=== PATIENT | female | born 1965 | race Caucasian/White ===

== ENCOUNTER → 2017-08-18 11:32 | Outpatient (CLI) | payer MEDICARE, MEDICAID, SELFPAY ==
[2017-08-18 12:05] LABS: Basophils % 0.7 % (0.1-2.0); Eosinophils # 0.5 K/mm3 (0.0-0.4); Eosinophils % 7.8 % (0.1-12.0); Hematocrit 39.6 % (37.0-47.0); Lymphocytes % 30.6 K/mm3 (10-50); Mean Corpuscular HGB Conc 30.5 g/dL (31.8-35.4); Mean Corpuscular Volume 82.1 fl (81-99); Mean Platelet Volume 8.7 fl (7.4-10.4); Monocytes # 0.3 K/mm3 (0.1-1.0); Monocytes % 5.2 % (1.7-9.3); Neutrophils # 3.7 K/mm3 (1.8-7.8); Neutrophils % 55.8 % (37.0-80.0); Platelet Count 277 K/mm3 (142-424); Red Blood Count 4.82 M/mm3 (4.20-5.40); Red Cell Distribution Width 17.6 % (11.5-17.5); White Blood Count 6.6 K/mm3 (4.8-10.8)
[2017-08-18 12:53] LABS: Albumin Level 3.7 gm/dL (3.4-5.0); Anion Gap 14.3 mEq/L (5-15); Blood Urea Nitrogen 35 mg/dL (7-18); Calcium 8.9 mg/dL (8.5-10.1); Carbon Dioxide 30 mmol/L (21.0-32.0); Chloride 95 mmol/L (98-107); Creatinine,Serum 1.29 mg/dL (0.55-1.02); Estimated Glomerular Filt Rate 44 ml/min (>60); GFR (African American) 53 ML/MIN (>60); Glucose 331 mg/dL (74-106); Phosphorous 3.9 mg/dL (2.4-4.9); Potassium 4.3 mmoL/L (3.5-5.1); Sodium 135 mmol/L (136-145)
[2017-08-19 11:39] LABS: Vitamin D 25 Hydroxy 22.7 ng/mL (30.0-100.0)
== END ==
PROVIDERS: Visit Provider Internal Medicine Nephrology
DX: N18.3 Chronic kidney disease, stage 3 (moderate) (principal)
CPT/HCPCS: 36415; 80069; 82652; 85025

== ENCOUNTER → 2017-08-22 12:45 | Outpatient (POV) | payer MEDICARE, MEDICAID, SELFPAY | PROVIDERS: Visit Provider Internal Medicine Nephrology | DX: Z00.00 Encounter for general adult medical examination without abnormal findings (principal) ==

== ENCOUNTER → 2017-09-13 09:14 | Outpatient (CLI) | payer MEDICARE, MEDICAID, SELFPAY ==
--- NOTE | 2017-09-13 09:15 | XR_ITS ---
XR foot wt bearing RT 3V HISTORY: Pain and swelling ORDERING PHYSICIAN: Tabatha Calloway DPM PATIENT AGE: 51 years COMPARISON: 12/27/2016 FINDINGS: There has been prior amputation of the fourth metatarsophalangeal joint. There is diffuse vascular calcification. No acute fracture or dislocation. No lytic or blastic change. IMPRESSION: Prior to be dilatation of the fourth metatarsophalangeal joint. No change with no acute finding
== END ==
PROVIDERS: Visit Provider Podiatrist
DX: Z51.89 Encounter for other specified aftercare (principal)
CPT/HCPCS: 73630

== ENCOUNTER → 2017-10-18 10:21 | Outpatient (REF) | payer MEDICARE, MEDICAID, SELFPAY | LOC: LAB 10:21 | PROVIDERS: Visit Provider Podiatrist | DX: L97.512 Non-pressure chronic ulcer of other part of right foot with fat layer exposed (principal); E11.42 Type 2 diabetes mellitus with diabetic polyneuropathy | CPT/HCPCS: 87070; 87077; 87186; 87205 ==

== ENCOUNTER → 2017-10-31 11:39 | Outpatient (CLI) | payer MEDICARE, MEDICAID, SELFPAY ==
[2017-10-31 12:02] LABS: Basophils % 0.5 % (0.1-2.0); Eosinophils # 0.3 K/mm3 (0.0-0.4); Eosinophils % 3.2 % (0.1-12.0); Hematocrit 40.3 % (37.0-47.0); Hemoglobin 12.8 g/dL (12.2-16.2); Lymphocytes # 2.6 K/mm3 (0.7-4.5); Lymphocytes % 31.8 K/mm3 (10-50); Mean Corpuscular HGB Conc 31.7 g/dL (31.8-35.4); Mean Corpuscular Hemoglobin 26.1 pg (27.0-31.2); Mean Corpuscular Volume 82.2 fl (81-99); Mean Platelet Volume 8.3 fl (7.4-10.4); Monocytes # 0.5 K/mm3 (0.1-1.0); Monocytes % 6.2 % (1.7-9.3); Neutrophils # 4.7 K/mm3 (1.8-7.8); Neutrophils % 58.3 % (37.0-80.0); Platelet Count 345 K/mm3 (142-424); Red Cell Distribution Width 17.2 % (11.5-17.5); White Blood Count 8.1 K/mm3 (4.8-10.8)
[2017-10-31 13:19] LABS: Hemoglobin A1C 6.8 % (0.0-7.0)
[2017-10-31 13:22] LABS: Erythrocyte Sedimentation Rate 63 mm/hr (0-20)
[2017-10-31 13:36] LABS: Alanine Aminotransferase 47 U/L (12-78); Albumin/Globulin Ratio 0.9 (1.1-1.8); Alkaline Phosphatase 90 U/L (46-116); Anion Gap 12.9 mEq/L (5-15); Aspartate Amino Transferase 32 U/L (15-37); Bilirubin,Total 0.4 mg/dL (0.2-1.0); Blood Urea Nitrogen 33 mg/dL (7-18); C-Reactive Protein < 0.2 mg/L (0.0-0.9); Calcium 9.3 mg/dL (8.5-10.1); Carbon Dioxide 32 mmol/L (21.0-32.0); Chloride 96 mmol/L (98-107); Creatinine,Serum 1.29 mg/dL (0.55-1.02); Estimated Glomerular Filt Rate 44 ml/min (>60); GFR (African American) 53 ML/MIN (>60); Globulin 4.6 gm/dl (1.3-3.2); Glucose 123 mg/dL (74-106); Potassium 3.9 mmoL/L (3.5-5.1); Sodium 137 mmol/L (136-145); Total Protein,Serum 8.6 gm/dL (6.4-8.2)
== END ==
PROVIDERS: PCP Family Medicine; Visit Provider Podiatrist
DX: D64.9 Anemia, unspecified (principal); E11.9 Type 2 diabetes mellitus without complications; L97.512 Non-pressure chronic ulcer of other part of right foot with fat layer exposed
CPT/HCPCS: 36415; 80053; 83036; 85025; 85651; 86140

== ENCOUNTER 2017-11-01 10:30 | Outpatient (CLI) | payer MEDICARE, MEDICAID, SELFPAY ==
[2017-11-01] VITALS (9 sets, daily range): BP systolic 135–150; BP diastolic 69–80; PULSE 79–88; RESP 18; TEMP 36.6; O2SAT 95–97
== END 2017-11-01 16:00 | disposition home or self-care (01) ==
LOC: INF 10:44
PROVIDERS: PCP Family Medicine; Visit Provider Podiatrist
DX: L97.512 Non-pressure chronic ulcer of other part of right foot with fat layer exposed (principal); E11.9 Type 2 diabetes mellitus without complications
CPT/HCPCS: 96365; 96366; J2407

== ENCOUNTER 2017-11-09 13:30 | Outpatient (RCR) | payer MEDICARE, MEDICAID, SELFPAY ==
--- NOTE | 2017-10-24 14:00 | HMH.PTOPWND ---
Rehab Outpt Wound Evaluation Rehab OP Wound Evaluation Start: 10/24/17 13:47 Freq: Status: Active Protocol: Document 10/24/17 13:48 HUI (Rec: 10/24/17 14:00 PHOJUAN MANUEL [id number]) Electronically Signed By Livan Llamas, PT 10/24/17 13:48 Subjective/History History History Pt presents with c/o right 3rd toe wound x ~ 2-3 mos with insidious onset. Pt has extensive medical hx including prior CVA, uncontolled DM-II, prior right 4th toe removal, and prior left AKA. She had X- ray performed which was negative for osteomyelitis and wound cuilture which was positive for multiple staph infections, but negative for MRSA. She is primarily wheelchair bound and propels herself with the right foot. Wound Eval Wound Right Distal Toe - 3rd Digit Wound Type Diabetic Foot Ulcer Is This a Chronic Wound Yes Wound Length (cm) 0.8 Wound Width (cm) 1.0 Wound Bed Appearance Yellow Percentage of Slough (%) 100 Wound Margins Description Indistinct Drainage Description Serous Drainage Amount Small Wound Topical Solution/Irrigant Saline Irrigant Comment Silvasorb gel Primary Dressing Composite Comment polymem Wound Secondary Dressing Type Gauze Roll/Wrap Wound Debridement Method Sharps Forceps Wound Debridement Amount of Tissue Minimal Removed Wound Problems/Impairments Impairments Problems/Impairmments Palpation Tenderness Wound Care Needs Subjective C/O Pain Impaired Self Care/Self Management Prognosis Rehab Potential Fair Clinical Impression Consistent with Diagnosis Yes Short Term Goals Number of Weeks 4 Decreased Palpation Tenderness Yes: to min Decrease Wound Area Yes: by 50% Patient to be Ind w/ Home Wound Care/ Yes Dressing Changes Institute Director Goals Number of Weeks 8 Decreased Palpation Tenderness Yes: to none Decrease Wound Area Yes: by 100% Outpatient Therapy Plan of Care Treatment Plan May Include Ultrasound/Phonophoresis Yes Orthotics/Bracing/Splinting Yes Wound Care
== END 2017-11-09 13:31 | disposition home or self-care (01) ==
LOC: PT 13:30
PROVIDERS: PCP Family Medicine; Visit Provider Podiatrist
DX: E11.42 Type 2 diabetes mellitus with diabetic polyneuropathy (principal); L97.512 Non-pressure chronic ulcer of other part of right foot with fat layer exposed
CPT/HCPCS: 97162; 97597

== ENCOUNTER 2017-11-19 15:28 | Inpatient (IN) ==
[2017-11-19 16:14] LABS: Basophils % 0.3 % (0.1-2.0); Eosinophils # 0.4 K/mm3 (0.0-0.4); Eosinophils % 3.2 % (0.1-12.0); Hemoglobin 11.7 g/dL (12.2-16.2); Lymphocytes # 3.5 K/mm3 (0.7-4.5); Lymphocytes % 29.8 K/mm3 (10-50); Mean Corpuscular HGB Conc 30.8 g/dL (31.8-35.4); Mean Corpuscular Volume 81.3 fl (81-99); Mean Platelet Volume 8.1 fl (7.4-10.4); Monocytes # 0.7 K/mm3 (0.1-1.0); Monocytes % 5.9 % (1.7-9.3); Neutrophils # 7.2 K/mm3 (1.8-7.8); Neutrophils % 60.8 % (37.0-80.0); Platelet Count 318 K/mm3 (142-424); Red Blood Count 4.68 M/mm3 (4.20-5.40); Red Cell Distribution Width 17.6 % (11.5-17.5); White Blood Count 11.8 K/mm3 (4.8-10.8)
--- NOTE | 2017-11-19 16:14 | Emergency Department Note ---
ED Disposition Clinical Impression: Dehydration Acute renal failure Qualifiers: Acute renal failure type: unspecified Qualified Code(s): N17.9 - Acute kidney failure, unspecified Acute pancreatitis Qualifiers: Pancreatitis type: unspecified pancreatitis type Acute pancreatitis complication: unspecified Qualified Code(s): K85.90 - Acute pancreatitis without necrosis or infection, unspecified UTI (urinary tract infection) Qualifiers: Urinary tract infection type: site unspecified Hematuria presence: without hematuria Qualified Code(s): N39.0 - Urinary tract infection, site not specified Disposition: Still a Patient Condition on Discharge: Fair Referrals: Shawn Alva MD [Primary Care Provider] - - Critical Care Critical Care Time: Yes Attestation: On 11/19/17, the high probability of a clinically significant, sudden or life threatening deterioration of the following system(s) required my full and direct attention, intervention and personal management. The time I documented below is in addition to time spent performing reported procedures but includes the following listed in this critical care notation. Total Critical Care Time: 40 Vital system(s) involved:: Renal Failure My critical care processes included: Assessment & monitoring of V/S, Initial and Re-exams, Data Review/Interpretation, Coordinating Care, Medication Orders and management, Documentation Medical Decision Making - Carlo Inquiry Pt receiving controlled substance: No Vital Signs: 11/19/17 15:45 11/19/17 16:30 11/19/17 17:53 Temperature 98.1 F Temperature Source Temporal Artery Scan Pulse Rate [Right Brachial] 66 71 68 Respiratory Rate 18 16 16 Blood Pressure [Right Arm] 125/64 107/64 104/63 Blood Pressure Mean [Right Arm] 84 78 76 Blood Pressure Source [Right Arm] Automatic Cuff Automatic Cuff Automatic Cuff Blood Pressure Position [Right Arm] Sitting Sitting Supine 02 Sat by Pulse Oximetry 98 94 L 97 Oxygen Delivery Method Room Air Room Air Room Air - Lab Data Lab Results 11/19/17 15:45: Urine Color Yellow, Urine Appearance Cloudy, Urine pH 5.0, Ur Specific [place] >= 1.030, Urine Protein Trace, Urine Glucose (UA) Negative, Urine Ketones Trace, Urine Blood Negative, Urine Nitrate Negative, Urine Bilirubin Negative, Urine Urobilinogen 0.2, Ur Leukocyte Esterase 1+ A, Urine WBC 20-50, Ur Squamous Epith Cells 10-20, Urine Bacteria 4+, Hyaline Casts Occasional 11/19/17 16:05: Amylase 279 H, Lipase 5159 H 11/19/17 16:05: WBC 11.8 H, RBC 4.68, Hgb 11.7 L, Hct 38.0, MCV 81.3, MCH 25.0 L , MCHC 30.8 L, RDW 17.6 H, Plt Count 318, MPV 8.1, Neut % (Auto) 60.8, Lymph % ( Auto) 29.8, [place] % (Auto) 5.9, Eos % (Auto) 3.2, Baso % (Auto) 0.3, Neut # (Auto ) 7.2, Lymph # (Auto) 3.5, [place] # (Auto) 0.7, Eos # (Auto) 0.4, Baso # (Auto) 0.0 11/19/17 16:05: Sodium 136, Potassium 5.2 H, Chloride 96 L, Carbon Dioxide 26, Anion Gap 19.2 H, BUN 65 H, Creatinine 3.77 H, Estimated Creat Clear 22, Estimated GFR 13 L*, Est GFR ( Amer) 15 L*, Glucose 102, Calcium 9.2, Total Bilirubin 0.6, AST 25, ALT 34, Alkaline Phosphatase 79, Total Protein 8.3 H, Albumin 3.6, Globulin 4.7 H, Albumin/Globulin Ratio 0.8 L 11/19/17 16:05: Lactic Acid 4.4 H 11/19/17 16:05: Troponin I < 0.02 11/19/17 16:05: PT 28.3 H, INR 2.59 H Result diagrams: 11/19/17 16:05 11/19/17 16:05 Orders (Tests/Meds): ED MEDICATIONS Generic Name Dose Route Start Last Admin Trade Name Freq PRN Reason Stop Dose Admin Ceftriaxone Sodium 1 gm/ 50 mls @ 100 mls/hr 11/19/17 16:45 11/19/17 17:18 Sodium Chloride IV 12/03/17 16:44 100 mls/hr Q24H JOSEPH Administration Protocol ORDERS Category Date Time Status CT abdomen pelvis wo con Stat Cat Scan 11/19/17 16:00 Taken Lactic Acid Follow Up (4 hr) Stat Lab 11/19/17 16:36 Ordered Blood Culture Stat Micro 11/19/17 16:06 Received Urine Culture Stat Micro 11/19/17 15:45 Received - ECG Data Tracing #1 EKG interpreted by Trever Silva MD: Rhythm: sinus Rate: 73 [place]: normal Ectopy: none Conduction: normal ST Segment Changes: none T Wave Changes: none Q Waves: none Poor R-wave progression Baseline artifact and wander present, but I consider the EKG adequate for accurate interpretation. Computer reads acute inferior injury pattern/TN, which is incorrect no evidence of acute ischemia or injury - Physician Consults Physician Consulted: Yann Alva Time: 19:10 Comment/Response: CT results pending. Agrees to admit the patient to the hospital. We discussed the patient's clinical information, including history, exam, laboratory and radiology results and ED course. Per hospital procedure, I will write temporary bridge inpatient orders on the patient. Specific orders requested by the admitting physician: Normal saline, sliding scale insulin, clear liquids. Dr. Recinos will follow-up CT results and contact Dr. pappas if any significant abnormalities. Hold diuretics. General Adult HPI - General Chief complaint: Urogenital-Female Stated complaint: Vomiting, kidneys havent moved since 10 pm yesterd Time Seen by Provider: 11/19/17 16:14 Mode of Arrival: Wheelchair Limitations: No Limitations Description of Symptoms (Recalled from ER Triage Doc. by RN): NO URINE OUTPUT SINCE LAST NIGHT AT 2200 - History of Present Illness HPI narrative: No urine output since 10 PM last night. States she does not feel distended, feels like she does not have any urine in her bladder. Mother notes that she is on Lasix twice a day. Denies any pain. Mother also states that she has been generally weak and having some myoclonic jerks since last night. Had one episode of vomiting on the way here, but mother thinks that might of been due to carsickness. The patient lives with her mother who is the study abroad advisor and the POA. Patient has had a previous stroke and has a left hemiparesis and a left below the knee amputation. - Related Data Home Medications Medication Instructions Recorded Confirmed amiloride 5 mg tablet 5 mg PO DAILY 09/22/17 11/01/17 aspirin 25 mg-dipyridamole 200 mg 1 cap PO BID 09/22/17 11/01/17 capsule,ext.release 12 hr multiphase baclofen 10 mg tablet 10 mg PO Q8H 09/22/17 11/01/17 citalopram 10 mg tablet 10 mg PO DAILY 09/22/17 11/01/17 clopidogrel 75 mg tablet 75 mg PO DAILY 09/22/17 11/01/17 donepezil 10 mg tablet 10 mg PO QHS 09/22/17 11/01/17 glimepiride 2 mg tablet 2 mg PO QAM 09/22/17 11/01/17 linagliptin 2.5 mg-metformin 1,000 1 tab PO BID 09/22/17 11/01/17 mg tablet metolazone 5 mg tablet 5 mg PO DAILY 09/22/17 11/01/17 metoprolol tartrate 25 mg tablet 25 mg PO BID 09/22/17 11/01/17 rosuvastatin 10 mg tablet 10 mg PO DAILY 09/22/17 11/01/17 spironolactone 25 mg tablet 25 mg PO Q8H 09/22/17 11/01/17 warfarin 5 mg tablet 5 mg PO DAILY 09/22/17 11/01/17 sulfamethoxazole 800 1 tab PO BID 10/18/17 11/01/17 mg-trimethoprim 160 mg tablet Previous Rx's Medication Instructions Recorded collagenase clostridium 1 applic TOPICAL QDAY #30 g 10/18/17 histolyticum 250 unit/gram topical ointment Allergies Allergy/AdvReac Type Severity Reaction Status Date / Time azithromycin Allergy Intermediate S-DIFF. Verified 11/17/17 10:31 BREATHING daptomycin [DAPTOMYCIN] Allergy Intermediate I-RASH/ITCH Verified 11/17/17 10:31 ING levofloxacin Allergy Intermediate I-RASH Verified 11/17/17 10:31 Penicillins Allergy Intermediate I-HIVES Verified 11/17/17 10:31 [facility] History I have reviewed the patient's past medical history: Yes Medical History: Reports:: Cancer, Diabetes Mellitus Type 2, Myocardial Infarction, Transient Ischemic Attacks (TIA) Denies:: Asthma, Chronic Obstructive Pulmonary Disease (COPD) Laterality Cases: Right: Other, Bilateral: Carpal Tunnel Release, Mastectomy Other Surgeries: Yes: Cardiac Surgery, , Tubal Ligation, Other Amputation: Yes - Social History Educational Level: Completed College Smoking Status: Current every day smoker # Packs/Day (cigarettes): 0 #Yrs smoked (if former smoker): 0 Alcohol Intake: never Alcohol Intake Frequency:: other - Psychiatric History Expresses thoughts of harming self/others: None Suicide Plan Description: No Plan Family Hx:: Heart Attack, Diabetes, Cancer ROS Obtained: Yes All systems reviewed & no additional complaints - Constitutional Constitutional: Denies fever(s), Reports weakness - Respiratory Respiratory: No dyspnea - Gastrointestinal Gastrointestingal: Reports: vomiting. Denies: abdominal pain, diarrhea - Genitourinary Female Genitourinary: Reports as per HPI - Musculoskeletal Musculoskeletal: Denies back pain - Neurologic Neurologic: Denies headache(s) Physical Exam - General General appearance: alert, in no apparent distress - Head Head exam: atraumatic, normocephalic, normal inspection - Eye Eye exam: Present: normal appearance, PERRL, EOMI - ENT ENT exam: Present: normal exam, normal oropharynx, mucous membranes moist, TM's normal bilaterally, normal external ear exam - Neck Neck exam: Present: normal inspection, full ROM, trachea midline. Absent: meningismus, lymphadenopathy - Chest Chest inspection: Present: normal inspection, symmetric chest wall rise. Absent : tenderness - Respiratory Respiratory exam: Present: normal lung sounds bilaterally. Absent: respiratory distress - Cardiovascular Cardiovascular exam: Present: regular rate, normal rhythm. Absent: JVD - Abdominal Exam Abdominal exam: Present: soft, normal bowel sounds. Absent: distention, tenderness, guarding Comment: Infraumbilical ventral hernia. Nontender. - Back Exam Back exam: Present: normal inspection. Absent: tenderness - Neurological Exam Neurological exam: Present: alert, oriented X3 - Psychiatric Psychiatric exam: Present: normal affect, normal mood - Skin Skin exam: Present: warm, dry, intact, normal color - Lymphatic Lymphatic Findings: no adenopathy - Other Other exam information: Left below the knee amputation. Left upper extremity parasis with contracture.
[2017-11-19 16:15] LABS: Appearance,Urine CLOUDY (Clear); Blood, Urine Negative (Negative); Color,Urine YELLOW (Yellow); Glucose,Urine (UA) Negative (Negative); Ketones,Urine TRACE (Negative); Leukocyte Esterase,Urine 1+ (Negative); Microscopic, Urine URINE MICROSCOPIC (MICROSCOPIC); Protein,Urine TRACE (Negative); Specific Gravity, Urine >= 1.030 (1.005-1.030); Urobilinogen,Urine 0.2 EU/dl (0.2)
[2017-11-19 16:16] LABS: Bilirubin,Urine Negative (Negative)
[2017-11-19 16:23] LABS: Bacteria,Urine 4+ /lpf; WBC,Urine 20-50 #/hpf (0-3)
[2017-11-19 16:24] LABS: Hyaline Casts,Urine Occasional #/lpf (0)
[2017-11-19 16:29] LABS: Albumin Level 3.6 gm/dL (3.4-5.0); Albumin/Globulin Ratio 0.8 (1.1-1.8); Amylase 279 U/L (25-125); Anion Gap 19.2 mEq/L (5-15); Bilirubin,Total 0.6 mg/dL (0.2-1.0); Calcium 9.2 mg/dL (8.5-10.1); Globulin 4.7 gm/dl (1.3-3.2); Potassium 5.2 mmoL/L (3.5-5.1); Total Protein,Serum 8.3 gm/dL (6.4-8.2)
[2017-11-19 16:40] LABS: Lipase 5159 u/L (73-393)
[2017-11-19 16:59] LABS: INR 2.59 (0.9-1.1); Prothrombin Time 28.3 seconds (9.4-11.8)
--- NOTE | 2017-11-19 20:59 | History & Physical Report ---
*Chief complaint: Limited urine output *History of present illness: This 51-year-old white female who is chronically ill was brought to the emergency room by her family because of essentially no urine output for 2 days. She is complained of right chest and right arm pain. She has had some nausea and vomited on the way to the emergency room. She is diabetic and has had a CVA with resultant left hemiparesis. She has had a left below the knee amputation. She has chronic renal failure. She was given IV fluids in the emergency room. Regarding her lab studies most significantly was an elevated amylase at 279 and lipase at 5159. Her renal functions showed BUN of 65 and creatinine of 3.77. White blood cell count was elevated at 11,800 and the lactic acid was elevated 4.4. [facility] History Medical History: Reports:: Cancer (breast), Coronary Artery Disease, Cerebrovascular Accident, Diabetes Mellitus Type 2, Gall Bladder Disease ( Cholecystectomy), Hyperlipidemia, Hypertension, Myocardial Infarction, Peripheral Vascular Disease, Renal Disease, Renal Insufficiency, Transient Ischemic Attacks (TIA), Urinary Tract Infection Denies:: Asthma, Chronic Obstructive Pulmonary Disease (COPD), Diabetes Mellitus Type 1 Other Medical History: Reports: Chemotherapy Laterality Cases: Right: Mastectomy, Other, Bilateral: Carpal Tunnel Release Other Surgeries: Yes: Cancer Surgery, Cardiac Catheterization, Cardiac Surgery ( April 2009), Cholecystectomy, , Open Heart Surgery, Tubal Ligation, Other Amputation: Yes (Left BKA 06/23/14; 4th toe right foot 2016) - *Social History Educational Level: Attended College Smoking Status: Never smoker (Does not use alcohol) # Packs/Day (cigarettes): 0 #Yrs smoked (if former smoker): 0 Alcohol Intake: never Alcohol Intake Frequency:: other Substance Use Type: denies use Occupational Status: unemployed, disabled Household Members: family - Psychiatric History Expresses thoughts of harming self/others: None Suicide Plan Description: No Plan *Family Hx:: Cancer, Diabetes, Heart Attack, Hyperlipidemia, Hypertension Comment: 1 son was stillborn : 4 Para: 4 (1 son was stillborn) LMP comments: post menopausal Review of Systems - Constitutional Reports anorexia, Reports weakness, Denies chills, Denies fever(s) - Eyes Denies change in vision - ENT Denies difficulty swallowing, Denies nasal congestion, Denies pain with swallowing - *Cardiovascular Reports chest pain (Some recent right shoulder and right chest pain and right arm pain), Denies shortness of breath, Denies irregular heart rhythm - *Respiratory Denies chest congestion, Denies cough, Denies shortness of breath - *Gastrointestinal Reports nausea, Reports vomiting (Once), Denies abdominal pain, Denies change in bowel habits - *Genitourinary Reports difficulty urinating - *Musculoskeletal Comments: Some right arm pain. She of course has left arm paresis with contractures - *Neurologic Reports weakness, Denies abnormal speech, Denies behavioral changes, Denies seizure-like activity, Denies headache(s), Denies loss of vision - Endocrine Comments: Decrease in appetite - Hematologic/Lymphatic Reports easy bruising - Allergic/Immunologic Denies lip swelling, Denies throat swelling Meds Home Medications Medication Instructions Recorded Confirmed Type amiloride 5 mg tablet 5 mg PO DAILY 09/22/17 11/19/17 History aspirin 25 mg-dipyridamole 200 mg 1 cap PO BID 09/22/17 11/19/17 History capsule,ext.release 12 hr multiphase baclofen 10 mg tablet 10 mg PO Q8H 09/22/17 11/19/17 History citalopram 10 mg tablet 10 mg PO DAILY 09/22/17 11/19/17 History clopidogrel 75 mg tablet 75 mg PO DAILY 09/22/17 11/19/17 History donepezil 10 mg tablet 10 mg PO QHS 09/22/17 11/19/17 History glimepiride 2 mg tablet 2 mg PO QAM 09/22/17 11/19/17 History linagliptin 2.5 mg-metformin 1,000 1 tab PO BID 09/22/17 11/19/17 History mg tablet metolazone 5 mg tablet 5 mg PO DAILY 09/22/17 11/19/17 History metoprolol tartrate 25 mg tablet 25 mg PO BID 09/22/17 11/19/17 History rosuvastatin 10 mg tablet 10 mg PO DAILY 09/22/17 11/19/17 History spironolactone 25 mg tablet 25 mg PO Q8H 09/22/17 11/19/17 History warfarin 5 mg tablet 5 mg PO DAILY 09/22/17 11/19/17 History sulfamethoxazole 800 1 tab PO BID 10/18/17 11/19/17 History mg-trimethoprim 160 mg tablet Allergies Allergy/AdvReac Type Severity Reaction Status Date / Time azithromycin Allergy Intermediate S-DIFF. Verified 11/17/17 10:31 BREATHING daptomycin [DAPTOMYCIN] Allergy Intermediate I-RASH/ITCH Verified 11/17/17 10:31 ING levofloxacin Allergy Intermediate I-RASH Verified 11/17/17 10:31 Penicillins Allergy Intermediate I-HIVES Verified 11/17/17 10:31 Exam Vital signs and Labs for Last 24 Hours: Temp Pulse Resp BP Pulse Ox 98.4 F 58 L 18 115/62 93 L 11/19/17 20:00 11/19/17 20:00 11/19/17 20:00 11/19/17 20:00 11/19/17 20:00 Laboratory Results - last 24 hr 11/19/17 15:45: Urine Color Yellow, Urine Appearance Cloudy, Urine pH 5.0, Ur Specific [place] >= 1.030, Urine Protein Trace, Urine Glucose (UA) Negative, Urine Ketones Trace, Urine Blood Negative, Urine Nitrate Negative, Urine Bilirubin Negative, Urine Urobilinogen 0.2, Ur Leukocyte Esterase 1+ A, Urine WBC 20-50, Ur Squamous Epith Cells 10-20, Urine Bacteria 4+, Hyaline Casts Occasional 11/19/17 16:05: Amylase 279 H, Lipase 5159 H 11/19/17 16:05: WBC 11.8 H, RBC 4.68, Hgb 11.7 L, Hct 38.0, MCV 81.3, MCH 25.0 L , MCHC 30.8 L, RDW 17.6 H, Plt Count 318, MPV 8.1, Neut % (Auto) 60.8, Lymph % ( Auto) 29.8, [place] % (Auto) 5.9, Eos % (Auto) 3.2, Baso % (Auto) 0.3, Neut # (Auto ) 7.2, Lymph # (Auto) 3.5, [place] # (Auto) 0.7, Eos # (Auto) 0.4, Baso # (Auto) 0.0 11/19/17 16:05: Sodium 136, Potassium 5.2 H, Chloride 96 L, Carbon Dioxide 26, Anion Gap 19.2 H, BUN 65 H, Creatinine 3.77 H, Estimated Creat Clear 22, Estimated GFR 13 L*, Est GFR ( Amer) 15 L*, Glucose 102, Calcium 9.2, Total Bilirubin 0.6, AST 25, ALT 34, Alkaline Phosphatase 79, Total Protein 8.3 H, Albumin 3.6, Globulin 4.7 H, Albumin/Globulin Ratio 0.8 L 11/19/17 16:05: Lactic Acid 4.4 H 11/19/17 16:05: Troponin I < 0.02 11/19/17 16:05: PT 28.3 H, INR 2.59 H 11/19/17 20:15: Lactic Acid Fup @ 4Hr 4.2 H Laboratory Tests 11/19/17 11/19/17 11/19/17 16:05 16:05 16:05 WBC 11.8 H Hgb 11.7 L Hct 38.0 PT INR Sodium 136 Potassium 5.2 H Chloride 96 L BUN 65 H Creatinine 3.77 H Estimated GFR 13 L* Lactic Acid Lactic Acid Fup @ 4Hr Amylase 279 H Lipase 5159 H 11/19/17 11/19/17 11/19/17 16:05 16:05 20:15 WBC Hgb Hct PT 28.3 H INR 2.59 H Sodium Potassium Chloride BUN Creatinine Estimated GFR Lactic Acid 4.4 H Lactic Acid Fup @ 4Hr 4.2 H Amylase Lipase I & O for Last 24 hours: Intake & Output 11/17/17 11/18/17 11/19/17 11/20/17 11:59 11:59 11:59 11:59 Weight 169 lb 3 oz - Constitutional no acute distress - *Routine HEENT Exam Head: Present: normocephalic Eye: Present: PERRL. Absent: conjunctival icterus ENT: Present: mucous membranes moist - *Routine Neck Exam Present: supple. Absent: carotid bruit - Routine Chest/Breast/Axilla Exam Chest wall: Absent: tenderness, mass Breast: Present: right mastectomy - *Routine Respiratory Exam Present: CTA bilaterally. Absent: rales, wheezes - *Routine Cardiovascular Exam Present: RRR, murmur (Aortic murmur 2-3/6) - *Routine Abdominal Exam Present: soft, distended, hernia ([place]), surgical scars. Absent: tenderness - *Routine Rectal Exam Comments: Not done - *Routine Exam Comments: Not done - *Routine Extremities Exam Comments: There is a left BKA. She has a trace of edema on the right. She has had amputation of the fourth toe on the right. - Routine Back/Spine/Pelvis Exam Comments: She is lying in bed. - *Routine Skin Exam Present: intact - *Routine Neurological Exam Present: alert, oriented X3 H&P: Result - Labs Labs: Short CBC 11/19/17 Range/Units 16:05 WBC 11.8 H (4.8-10.8) K/mm3 Hgb 11.7 L (12.2-16.2) g/dL Hct 38.0 (37.0-47.0) % Plt Count 318 (142-424) K/mm3 BMP 11/19/17 16:05 Sodium 136 Potassium 5.2 H Chloride 96 L Carbon Dioxide 26 BUN 65 H Creatinine 3.77 H Glucose 102 Calcium 9.2 Cardiac Enzymes 11/19/17 Range/Units 16:05 Troponin I < 0.02 (0.00-0.06) ng/ml Liver Function 11/19/17 Range/Units 16:05 Total Bilirubin 0.6 (0.2-1.0) mg/dL AST 25 (15-37) U/L ALT 34 (12-78) U/L Alkaline Phosphatase 79 (46-116) U/L Albumin 3.6 (3.4-5.0) gm/dL Urine 11/19/17 Range/Units 15:45 Urine Color Yellow (Yellow) Urine Appearance Cloudy (Clear) Urine pH 5.0 (5.0-8.5) Ur Specific [place] >= 1.030 (1.005-1.030) Urine Protein Trace (Negative) Urine Glucose (UA) Negative (Negative) Assessment and Plan (1) Left spastic hemiparesis Current visit: Yes Status: Chronic Category: Medical Code(s): G81.14 - Spastic hemiplegia affecting left nondominant side (2) Hemiparesis affecting left side as late effect of cerebrovascular accident Current visit: Yes Status: Chronic Category: Medical Code(s): I69.354 - Hemiplegia and hemiparesis following cerebral infarction affecting left non- dominant side (3) correction 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 Current visit: Yes Status: Chronic Category: Medical Code(s): 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 (4) Acute pancreatitis Current visit: Yes Status: Acute Qualifiers: Pancreatitis type: unspecified pancreatitis type Acute pancreatitis complication: unspecified Qualified Code(s): K85.90 - Acute pancreatitis without necrosis or infection, unspecified Category: Medical Code(s): K85.90 - Acute pancreatitis without necrosis or infection, unspecified (5) Acute renal failure Current visit: Yes Status: Chronic Qualifiers: Acute renal failure type: unspecified Qualified Code(s): N17.9 - Acute kidney failure, unspecified Category: Medical Code(s): N17.9 - Acute kidney failure, unspecified (6) Dehydration Current visit: Yes Status: Acute Category: Medical Code(s): E86.0 - Dehydration (7) UTI (urinary tract infection) Current visit: Yes Status: Acute Qualifiers: Urinary tract infection type: site unspecified Hematuria presence: without hematuria Qualified Code(s): N39.0 - Urinary tract infection, site not specified Category: Medical Code(s): N39.0 - Urinary tract infection, site not specified (8) Diabetes mellitus Current visit: No Status: Chronic Qualifiers: Diabetes mellitus type: type 2 Diabetes mellitus intermodal dispatcher insulin use: without halfway use Diabetes mellitus complication status: with neurologic complications Diabetes mellitus complication detail: with polyneuropathy Qualified Code(s): E11.42 - Type 2 diabetes mellitus with diabetic polyneuropathy Category: Medical Code(s): E11.9 - Type 2 diabetes mellitus without complications - Assessment and plan all Dx Assessment and Plan for all problems:: See orders.
[2017-11-20 06:51] LABS: Basophils % 0.5 % (0.1-2.0); Eosinophils # 0.2 K/mm3 (0.0-0.4); Eosinophils % 3.4 % (0.1-12.0); Hematocrit 30.8 % (37.0-47.0); Lymphocytes # 2.5 K/mm3 (0.7-4.5); Mean Corpuscular HGB Conc 30.3 g/dL (31.8-35.4); Mean Corpuscular Hemoglobin 25.2 pg (27.0-31.2); Mean Platelet Volume 7.9 fl (7.4-10.4); Monocytes # 0.3 K/mm3 (0.1-1.0); Monocytes % 5.2 % (1.7-9.3); Neutrophils # 3.4 K/mm3 (1.8-7.8); Neutrophils % 51.9 % (37.0-80.0); Platelet Count 235 K/mm3 (142-424); Red Blood Count 3.71 M/mm3 (4.20-5.40); Red Cell Distribution Width 17.6 % (11.5-17.5); White Blood Count 6.5 K/mm3 (4.8-10.8)
[2017-11-20 06:52] LABS: Hemoglobin 9.4 g/dL (12.2-16.2)
[2017-11-20 07:02] LABS: Albumin Level 2.4 gm/dL (3.4-5.0); Albumin/Globulin Ratio 0.7 (1.1-1.8); Anion Gap 12.5 mEq/L (5-15); Bilirubin,Total 0.3 mg/dL (0.2-1.0); Globulin 3.4 gm/dl (1.3-3.2); Potassium 3.5 mmoL/L (3.5-5.1); Total Protein,Serum 5.8 gm/dL (6.4-8.2)
[2017-11-20 07:12] LABS: Calcium 6.9 mg/dL (8.5-10.1)
--- NOTE | 2017-11-20 09:39 | Pharmacy Consult Notes ---
[facility] Pharmacy VTE Monitoring - Patient Demographics Admission date: 11/20/17 Report Date: 11/20/17 Time: 09:38 Allergies/Adverse Reactions: Patient Allergies azithromycin Allergy (Intermediate, Verified 11/17/17 10:31) S-DIFF. 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 WARFARIN DOSE CONTINUED INPATIENT Types of VTE Prophylaxis: Pharmacological Location of Applied Device: Refused Pharmacologic Type: Warfarin - VTE Diagnosis Confirmed Comment: WARFARIN CONTINUED. INR 2.59
--- NOTE | 2017-11-20 13:09 | Progress Note ---
Internal Medicine - PN: Subj *Date: 11/20/17 *Time: 13:05 Interval history: She definitely feels better this morning. She complains of some stomach discomfort, lower abdominal area. Exam Vital signs and Labs for Last 24 Hours: Temp Pulse Resp BP Pulse Ox 98.3 F 66 20 102/54 95 11/20/17 07:19 11/20/17 07:19 11/20/17 07:19 11/20/17 07:19 11/20/17 07:19 Laboratory Results - last 24 hr 11/19/17 15:45: Urine Color Yellow, Urine Appearance Cloudy, Urine pH 5.0, Ur Specific [place] >= 1.030, Urine Protein Trace, Urine Glucose (UA) Negative, Urine Ketones Trace, Urine Blood Negative, Urine Nitrate Negative, Urine Bilirubin Negative, Urine Urobilinogen 0.2, Ur Leukocyte Esterase 1+ A, Urine WBC 20-50, Ur Squamous Epith Cells 10-20, Urine Bacteria 4+, Hyaline Casts Occasional 11/19/17 16:05: Amylase 279 H, Lipase 5159 H 11/19/17 16:05: WBC 11.8 H, RBC 4.68, Hgb 11.7 L, Hct 38.0, MCV 81.3, MCH 25.0 L , MCHC 30.8 L, RDW 17.6 H, Plt Count 318, MPV 8.1, Neut % (Auto) 60.8, Lymph % ( Auto) 29.8, [place] % (Auto) 5.9, Eos % (Auto) 3.2, Baso % (Auto) 0.3, Neut # (Auto ) 7.2, Lymph # (Auto) 3.5, [place] # (Auto) 0.7, Eos # (Auto) 0.4, Baso # (Auto) 0.0 11/19/17 16:05: Sodium 136, Potassium 5.2 H, Chloride 96 L, Carbon Dioxide 26, Anion Gap 19.2 H, BUN 65 H, Creatinine 3.77 H, Estimated Creat Clear 22, Estimated GFR 13 L*, Est GFR ( Amer) 15 L*, Glucose 102, Calcium 9.2, Total Bilirubin 0.6, AST 25, ALT 34, Alkaline Phosphatase 79, Total Protein 8.3 H, Albumin 3.6, Globulin 4.7 H, Albumin/Globulin Ratio 0.8 L 11/19/17 16:05: Lactic Acid 4.4 H 11/19/17 16:05: Troponin I < 0.02 11/19/17 16:05: PT 28.3 H, INR 2.59 H 11/19/17 20:15: Lactic Acid Fup @ 4Hr 4.2 H 11/19/17 21:52: POC Glucose 66 L 11/19/17 22:00: Lactic Acid Fup @ 2Hr 2.0 11/20/17 06:03: WBC 6.5 D, RBC 3.71 L, Hgb 9.4 L D, Hct 30.8 L, MCV 83.0, MCH 25.2 L, MCHC 30.3 L, RDW 17.6 H, Plt Count 235 D, MPV 7.9, Neut % (Auto) 51.9, Lymph % (Auto) 39.0, [place] % (Auto) 5.2, Eos % (Auto) 3.4, Baso % (Auto) 0.5, Neut # (Auto) 3.4, Lymph # (Auto) 2.5, [place] # (Auto) 0.3, Eos # (Auto) 0.2, Baso # (Auto) 0.0 11/20/17 06:03: Sodium 144, Potassium 3.5 D, Chloride 109 H, Carbon Dioxide 26 , Anion Gap 12.5, BUN 50 H, Creatinine 2.12 H D, Estimated Creat Clear 39, Estimated GFR 25 L, Est GFR ( Amer) 30 L D, Glucose 64 L D, Calcium 6.9 L D, Total Bilirubin 0.3, AST 19, ALT 26, Alkaline Phosphatase 53, Total Protein 5.8 L D, Albumin 2.4 L D, Globulin 3.4 H, Albumin/Globulin Ratio 0.7 L, Amylase 97 D, Lipase 600 H 11/20/17 06:05: POC Glucose 81 11/20/17 11:50: POC Glucose 137 H Laboratory Tests 11/19/17 11/19/17 11/19/17 16:05 16:05 16:05 WBC 11.8 H Hgb 11.7 L Sodium 136 Potassium 5.2 H BUN 65 H Creatinine 3.77 H POC Glucose ALT Alkaline Phosphatase Amylase 279 H Lipase 5159 H 11/19/17 11/20/17 11/20/17 21:52 06:03 06:03 WBC 6.5 D Hgb 9.4 L D Sodium 144 Potassium 3.5 D BUN 50 H Creatinine 2.12 H D POC Glucose 66 L ALT 26 Alkaline Phosphatase 53 Amylase 97 D Lipase 600 H 11/20/17 11/20/17 06:05 11:50 WBC Hgb Sodium Potassium BUN Creatinine POC Glucose 81 137 H ALT Alkaline Phosphatase Amylase Lipase I & O for Last 24 hours: Intake & Output 11/18/17 11/19/17 11/20/17 11/21/17 11:59 11:59 11:59 11:59 Output Total 1650 / 1650 Balance -1650 / -1650 Weight 169 lb 3 oz Microbiology Reports for the Last 24 Hours: 5 x 4.6 cm cystic lesion in the area of the ovary on the right. CT was otherwise not remarkable. - Constitutional no acute distress - *Routine HEENT Exam Head: Present: normocephalic Eye: Present: EOMI, PERRL ENT: Present: mucous membranes moist - *Routine Neck Exam Present: supple - *Routine Respiratory Exam Present: CTA bilaterally - *Routine Cardiovascular Exam Present: RRR - *Routine Abdominal Exam Present: soft, distended - *Routine Neurological Exam Present: alert, oriented X3 Assessment and Plan (1) Dehydration Current visit: Yes Status: Acute Category: Medical Code(s): E86.0 - Dehydration (2) Acute pancreatitis Current visit: Yes Status: Acute Qualifiers: Pancreatitis type: unspecified pancreatitis type Acute pancreatitis complication: unspecified Qualified Code(s): K85.90 - Acute pancreatitis without necrosis or infection, unspecified Category: Medical Code(s): K85.90 - Acute pancreatitis without necrosis or infection, unspecified (3) UTI (urinary tract infection) Current visit: Yes Status: Acute Qualifiers: Urinary tract infection type: site unspecified Hematuria presence: without hematuria Qualified Code(s): N39.0 - Urinary tract infection, site not specified Category: Medical Code(s): N39.0 - Urinary tract infection, site not specified (4) Acute renal failure Current visit: Yes Status: Chronic Qualifiers: Acute renal failure type: unspecified Qualified Code(s): N17.9 - Acute kidney failure, unspecified Category: Medical Code(s): N17.9 - Acute kidney failure, unspecified (5) Diabetes mellitus Current visit: No Status: Chronic Qualifiers: Diabetes mellitus type: type 2 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 use Diabetes mellitus complication status: with neurologic complications Diabetes mellitus complication detail: with polyneuropathy Qualified Code(s): E11.42 - Type 2 diabetes mellitus with diabetic polyneuropathy Category: Medical Code(s): E11.9 - Type 2 diabetes mellitus without complications (6) longterm 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 Current visit: Yes Status: Chronic Category: Medical Code(s): Z79.01 - rn long term care (current) use of 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 (7) Left spastic hemiparesis Current visit: Yes Status: Chronic Category: Medical Code(s): G81.14 - Spastic hemiplegia affecting left nondominant side (8) Hemiparesis affecting left side as late effect of cerebrovascular accident Current visit: Yes Status: Chronic Category: Medical Code(s): I69.354 - Hemiplegia and hemiparesis following cerebral infarction affecting left non- dominant side - Assessment and plan all Dx Assessment and Plan for all problems:: Continue present treatment. Labs ordered for the morning.
[2017-11-21 07:11] LABS: Basophils % 0.4 % (0.1-2.0); Eosinophils # 0.2 K/mm3 (0.0-0.4); Eosinophils % 2.2 % (0.1-12.0); Hematocrit 34.7 % (37.0-47.0); Hemoglobin 10.4 g/dL (12.2-16.2); Lymphocytes # 2.2 K/mm3 (0.7-4.5); Lymphocytes % 26.9 K/mm3 (10-50); Mean Corpuscular Volume 83.3 fl (81-99); Mean Platelet Volume 8.3 fl (7.4-10.4); Monocytes # 0.5 K/mm3 (0.1-1.0); Monocytes % 5.5 % (1.7-9.3); Neutrophils # 5.4 K/mm3 (1.8-7.8); Neutrophils % 64.9 % (37.0-80.0); Platelet Count 243 K/mm3 (142-424); Red Blood Count 4.16 M/mm3 (4.20-5.40); Red Cell Distribution Width 17.3 % (11.5-17.5); White Blood Count 8.3 K/mm3 (4.8-10.8)
[2017-11-21 07:13] LABS: Anion Gap 12.5 mEq/L (5-15); Potassium 3.5 mmoL/L (3.5-5.1)
--- NOTE | 2017-11-21 08:19 | Progress Note ---
<Keisha Pedersen - Last Filed: 11/21/17 08:15> Internal Medicine - PN: Subj *Date: 11/21/17 *Time: 08:15 Interval history: States she is much better today. She is hungry. She is eating her clear liquid diet without problems. She denies nausea and vomiting. Bowels have not moved. She denies chest pain and shortness of breath. She has not been out of bed. Exam Vital signs and Labs for Last 24 Hours: Temp Pulse Resp BP Pulse Ox 97.4 F L 60 20 120/55 96 11/21/17 08:06 11/21/17 08:06 11/21/17 08:06 11/21/17 08:06 11/21/17 08:06 Laboratory Results - last 24 hr 11/20/17 11:50: POC Glucose 137 H 11/20/17 16:38: POC Glucose 143 H 11/20/17 20:10: POC Glucose 132 H 11/21/17 06:12: POC Glucose 142 H 11/21/17 06:52: WBC 8.3 D, RBC 4.16 L, Hgb 10.4 L, Hct 34.7 L, MCV 83.3, MCH 25.0 L, MCHC 30.0 L, RDW 17.3, Plt Count 243, MPV 8.3, Neut % (Auto) 64.9, Lymph % (Auto) 26.9, [place] % (Auto) 5.5, Eos % (Auto) 2.2, Baso % (Auto) 0.4, Neut # (Auto) 5.4, Lymph # (Auto) 2.2, [place] # (Auto) 0.5, Eos # (Auto) 0.2, Baso # (Auto) 0.0 11/21/17 06:52: Sodium 139, Potassium 3.5, Chloride 105, Carbon Dioxide 25, Anion Gap 12.5, BUN 21 H D, Creatinine 1.20 H D, Estimated Creat Clear 69, Estimated GFR 48 L, Est GFR ( Amer) 58 L D, Glucose 151 H I & O for Last 24 hours: Intake & Output 11/18/17 11/19/17 11/20/17 11/21/17 11:59 11:59 11:59 11:59 Intake Total 480 / 480 1392 / 1392 Output Total 2550 / 2550 5350 / 5350 Balance -2070 / -2070 -3958 / -3958 Weight 169 lb 3 oz Microbiology Reports for the Last 24 Hours: Microbiology 11/19/17 15:45 Urine,Clean Catch Urine Culture - Preliminary NO GROWTH AFTER 24 HOURS Narrative: Renal function has improved. White blood cell count is normal. - Constitutional no acute distress Comments: Sitting up in the bed feeding herself breakfast. She requests food. - *Routine Respiratory Exam Present: CTA bilaterally (Anteriorly and posteriorly) - *Routine Cardiovascular Exam Present: RRR - *Routine Abdominal Exam Present: soft, normoactive bowel sounds, tenderness (Mild in epigastrium) - *Routine Extremities Exam Absent: edema - *Routine Neurological Exam Present: alert, oriented X3 Assessment and Plan (1) Dehydration Current visit: Yes Status: Acute Category: Medical Code(s): E86.0 - Dehydration (2) Acute pancreatitis Current visit: Yes Status: Acute Qualifiers: Pancreatitis type: unspecified pancreatitis type Acute pancreatitis complication: unspecified Qualified Code(s): K85.90 - Acute pancreatitis without necrosis or infection, unspecified Category: Medical Code(s): K85.90 - Acute pancreatitis without necrosis or infection, unspecified (3) UTI (urinary tract infection) Current visit: Yes Status: Acute Qualifiers: Urinary tract infection type: site unspecified Hematuria presence: without hematuria Qualified Code(s): N39.0 - Urinary tract infection, site not specified Category: Medical Code(s): N39.0 - Urinary tract infection, site not specified (4) Acute renal failure Current visit: Yes Status: Chronic Qualifiers: Acute renal failure type: unspecified Qualified Code(s): N17.9 - Acute kidney failure, unspecified Category: Medical Code(s): N17.9 - Acute kidney failure, unspecified (5) Diabetes mellitus Current visit: No Status: Chronic Qualifiers: Diabetes mellitus type: type 2 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 Diabetes mellitus complication status: with neurologic complications Diabetes mellitus complication detail: with polyneuropathy Qualified Code(s): E11.42 - Type 2 diabetes mellitus with diabetic polyneuropathy Category: Medical Code(s): E11.9 - Type 2 diabetes mellitus without complications (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 Current visit: Yes Status: Chronic Category: Medical Code(s): 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 We will advance diet to full liquids. Will remove Gottlieb catheter. Out of bed with assistance. <Shawn Alva - Last Filed: 11/21/17 08:46> Internal Medicine - PN: Subj *Date: 11/21/17 *Time: 08:46 Exam Vital signs and Labs for Last 24 Hours: Temp Pulse Resp BP Pulse Ox 97.4 F L 60 20 120/55 96 11/21/17 08:06 11/21/17 08:06 11/21/17 08:06 11/21/17 08:06 11/21/17 08:06 Laboratory Results - last 24 hr 11/20/17 11:50: POC Glucose 137 H 11/20/17 16:38: POC Glucose 143 H 11/20/17 20:10: POC Glucose 132 H 11/21/17 06:12: POC Glucose 142 H 11/21/17 06:52: WBC 8.3 D, RBC 4.16 L, Hgb 10.4 L, Hct 34.7 L, MCV 83.3, MCH 25.0 L, MCHC 30.0 L, RDW 17.3, Plt Count 243, MPV 8.3, Neut % (Auto) 64.9, Lymph % (Auto) 26.9, [place] % (Auto) 5.5, Eos % (Auto) 2.2, Baso % (Auto) 0.4, Neut # (Auto) 5.4, Lymph # (Auto) 2.2, [place] # (Auto) 0.5, Eos # (Auto) 0.2, Baso # (Auto) 0.0 11/21/17 06:52: Sodium 139, Potassium 3.5, Chloride 105, Carbon Dioxide 25, Anion Gap 12.5, BUN 21 H D, Creatinine 1.20 H D, Estimated Creat Clear 69, Estimated GFR 48 L, Est GFR ( Amer) 58 L D, Glucose 151 H I & O for Last 24 hours: Intake & Output 11/18/17 11/19/17 11/20/17 11/21/17 11:59 11:59 11:59 11:59 Intake Total 480 / 480 1392 / 1392 Output Total 2550 / 2550 5350 / 5350 Balance -2070 / -2070 -3958 / -3958 Weight 169 lb 3 oz Microbiology Reports for the Last 24 Hours: Microbiology 11/19/17 15:45 Urine,Clean Catch Urine Culture - Preliminary NO GROWTH AFTER 24 HOURS Assessment and Plan (1) Dehydration Current visit: Yes Status: Acute Category: Medical Code(s): E86.0 - Dehydration (2) Acute pancreatitis Current visit: Yes Status: Acute Qualifiers: Pancreatitis type: unspecified pancreatitis type Acute pancreatitis complication: unspecified Qualified Code(s): K85.90 - Acute pancreatitis without necrosis or infection, unspecified Category: Medical Code(s): K85.90 - Acute pancreatitis without necrosis or infection, unspecified (3) UTI (urinary tract infection) Current visit: Yes Status: Acute Qualifiers: Urinary tract infection type: site unspecified Hematuria presence: without hematuria Qualified Code(s): N39.0 - Urinary tract infection, site not specified Category: Medical Code(s): N39.0 - Urinary tract infection, site not specified (4) Acute renal failure Current visit: Yes Status: Chronic Qualifiers: Acute renal failure type: unspecified Qualified Code(s): N17.9 - Acute kidney failure, unspecified Category: Medical Code(s): N17.9 - Acute kidney failure, unspecified (5) Diabetes mellitus Current visit: No Status: Chronic Qualifiers: Diabetes mellitus type: type 2 Diabetes mellitus [facility] insulin use: without [facility] use Diabetes mellitus complication status: with neurologic complications Diabetes mellitus complication detail: with polyneuropathy Qualified Code(s): E11.42 - Type 2 diabetes mellitus with diabetic polyneuropathy Category: Medical Code(s): E11.9 - Type 2 diabetes mellitus without complications (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 Current visit: Yes Status: Chronic Category: Medical Code(s): 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
--- NOTE | 2017-11-22 07:48 | Progress Note ---
Subjective Date: 11/22/17 Time: 07:40 Principal diagnosis: Right 3rd toe DM Ulcer Interval history: Ms. Nieto is a 51-year-old diabetic female who is well known to me. She was admitted for acute pancreatitis and lack of urine output 2 days. Patient is resting comfortably in bed eating. She states that she is hungry and has an appetite and she denies nausea and vomiting. She denies pain to the right lower extremity. [place] in the last few days but other than that she has been bedbound and has not put the foot down on the ground. PN: Obj Ex Vital signs: Temp Pulse Resp BP Pulse Ox 98.2 F 54 L 18 126/61 96 11/22/17 03:51 11/22/17 03:51 11/22/17 03:51 11/22/17 03:51 11/22/17 03:51 Narrative: Resting comfortably in bed. Denies N/V, F/C, SOB/CP - Constitutional no acute distress - Routine HEENT Exam Head: Present: normocephalic - Routine Respiratory Exam Absent: respiratory distress - Routine Cardiovascular Exam Absent: JVD - Routine Extremities Exam Present: extremity cold to touch, amputation (left BKA). Absent: pulses intact (Diminished to RLE), normal capillary refill (delayed) - Detailed Lower Extremity Exam Foot/Toes: Right erythema (R 3rd toe), Right swelling (R 3rd toe), Right wound ( R distal tip 3rd toe) Comments: L BKA. Weakly palpable pedal pulses noted right foot. No pedal hair growth and RLE cold. Right 4th digit amputated previously with no open wound noted to amp site. There is thickening of the skin here. There is no interdigital maceration. No drainage noted to the tip of right 3rd toe with compression. Periwound callus noted to distal tip of right 3rd toes. Wound on tip of toe granular and fibrotic. Localized edema and erythema noted to digit, much improved. No ascending cellulitis noted past PIPJ. No calf or thigh pain, right. No plantar wounds or gangrene noted. 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 Current Visit: Yes (7) Left spastic hemiparesis Status: Chronic Current Visit: Yes (8) Hemiparesis affecting left side as late effect of cerebrovascular accident Status: Chronic Current Visit: Yes (9) 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 Status: Acute Assessment and plan: 11/21/17: CONOR R 1.66, TBI 0.28, Toe pressure 28 mmHg Diminished pulses, normal to diminished waveforms Elevated right CONOR of 1.7 indicates calcification, vessel hardening Low TBI indicates vessel disease Prior left-sided amputation I discussed the results of the vascular study with the patient. I explained with the hardening of the vessels and the noncompressibility at the level of the calf combined with the decreased TBI there is low healing potential. 1. Dressing applied: Santyl dry sterile dressing 2. Wound care instructions given: change dressing daily as previously directed 3. WB in post op shoe with DME assistance; discussed how pushing the wheelchair along with the right foot is causing the pressure wound. Recommend that she stops using her right foot to move the wheelchair 4. Call the office immediately if pain increases or signs of infection worsen 5. I do not recommend surgery, due to the lack of healing potential 6. Continue local wound care and off load wound 7. Follow up out pt as previously scheduled Current Visit: Yes
--- NOTE | 2017-11-22 08:29 | Progress Note ---
<Keisha Pedersen - Last Filed: 11/22/17 08:35> Internal Medicine - PN: Subj *Date: 11/22/17 *Time: 08:35 Interval history: Dr. Doll note appreciated. Patient states that she slept well. She loves her food. She denies shortness of breath and chest pain. She has had no further nausea or vomiting. Bowels have not moved. She is passing flatus. She was out of bed to the shower yesterday without difficulty. She would like to go home today. Exam Vital signs and Labs for Last 24 Hours: Temp Pulse Resp BP Pulse Ox 97.7 F 55 L 16 97/51 96 11/22/17 08:00 11/22/17 08:00 11/22/17 08:00 11/22/17 08:00 11/22/17 08:00 Laboratory Results - last 24 hr 11/21/17 11:44: POC Glucose 270 H 11/21/17 16:53: POC Glucose 213 H 11/21/17 20:48: POC Glucose 204 H 11/22/17 06:09: POC Glucose 179 H I & O for Last 24 hours: Intake & Output 11/19/17 11/20/17 11/21/17 11/22/17 11:59 11:59 11:59 11:59 Intake Total 480 / 480 2932 / 2932 1673 / 1673 Output Total 2550 / 2550 6150 / 6150 800 / 800 Balance -2070 / -2070 -3218 / -3218 873 / 873 Weight 169 lb 3 oz 169 lb 2.994 oz Microbiology Reports for the Last 24 Hours: Microbiology 11/19/17 16:06 Blood Blood Culture - Preliminary NO GROWTH AFTER 48 HOURS 11/19/17 16:06 Blood Blood Culture - Preliminary NO GROWTH AFTER 48 HOURS 11/19/17 15:45 Urine,Clean Catch Urine Culture - Final NO GROWTH AFTER 48 HOURS - Constitutional no acute distress Comments: Sitting up in the bed eating her breakfast - *Routine Respiratory Exam Present: CTA bilaterally - *Routine Cardiovascular Exam Present: RRR - *Routine Abdominal Exam Present: soft, normoactive bowel sounds. Absent: tenderness - *Routine Extremities Exam Absent: edema Comments: Dressing removed from right foot. Toe with 1/2 cm dried wound; no erythema. - *Routine Neurological Exam Present: alert, oriented X3 Assessment and Plan (1) Dehydration Current visit: Yes Status: Acute Category: Medical Code(s): E86.0 - Dehydration (2) Acute pancreatitis Current visit: Yes Status: Acute Qualifiers: Pancreatitis type: unspecified pancreatitis type Acute pancreatitis complication: unspecified Qualified Code(s): K85.90 - Acute pancreatitis without necrosis or infection, unspecified Category: Medical Code(s): K85.90 - Acute pancreatitis without necrosis or infection, unspecified (3) UTI (urinary tract infection) Current visit: Yes Status: Acute Qualifiers: Urinary tract infection type: site unspecified Hematuria presence: without hematuria Qualified Code(s): N39.0 - Urinary tract infection, site not specified Category: Medical Code(s): N39.0 - Urinary tract infection, site not specified (4) Acute renal failure Current visit: Yes Status: Chronic Qualifiers: Acute renal failure type: unspecified Qualified Code(s): N17.9 - Acute kidney failure, unspecified Category: Medical Code(s): N17.9 - Acute kidney failure, unspecified (5) Diabetes mellitus Current visit: No Status: Chronic Qualifiers: Diabetes mellitus type: type 2 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 use Diabetes mellitus complication status: with neurologic complications Diabetes mellitus complication detail: with polyneuropathy Qualified Code(s): E11.42 - Type 2 diabetes mellitus with diabetic polyneuropathy Category: Medical Code(s): E11.9 - Type 2 diabetes mellitus without complications (6) care home 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 Current visit: Yes Status: Chronic Category: Medical Code(s): 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 (7) Left spastic hemiparesis Current visit: Yes Status: Chronic Category: Medical Code(s): G81.14 - Spastic hemiplegia affecting left nondominant side (8) Hemiparesis affecting left side as late effect of cerebrovascular accident Current visit: Yes Status: Chronic Category: Medical Code(s): I69.354 - Hemiplegia and hemiparesis following cerebral infarction affecting left non- dominant side (9) 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 Current visit: Yes Status: Acute Category: Medical Code(s): E08.621 - Diabetes mellitus due to underlying condition with foot ulcer; L97.519 - Non- pressure chronic ulcer of other part of right foot with unspecified severity - Assessment and plan all Dx Assessment and Plan for all problems:: We will discharge home today. <Lawrence Alvaian - Last Filed: 11/22/17 08:58> Internal Medicine - PN: Kacie *Date: 11/22/17 *Time: 08:56 Exam Vital signs and Labs for Last 24 Hours: Temp Pulse Resp BP Pulse Ox 97.7 F 55 L 16 97/51 96 11/22/17 08:00 11/22/17 08:00 11/22/17 08:00 11/22/17 08:00 11/22/17 08:00 Laboratory Results - last 24 hr 11/21/17 11:44: POC Glucose 270 H 11/21/17 16:53: POC Glucose 213 H 11/21/17 20:48: POC Glucose 204 H 11/22/17 06:09: POC Glucose 179 H I & O for Last 24 hours: Intake & Output 11/19/17 11/20/17 11/21/17 11/22/17 11:59 11:59 11:59 11:59 Intake Total 480 / 480 2932 / 2932 1673 / 1673 Output Total 2550 / 2550 6150 / 6150 800 / 800 Balance -2070 / -2070 -3218 / -3218 873 / 873 Weight 169 lb 3 oz 169 lb 2.994 oz Microbiology Reports for the Last 24 Hours: Microbiology 11/19/17 16:06 Blood Blood Culture - Preliminary 11/19/17 16:06 Blood Blood Culture - Preliminary NO GROWTH AFTER 48 HOURS 11/19/17 15:45 Urine,Clean Catch Urine Culture - Final NO GROWTH AFTER 48 HOURS Assessment and Plan (1) Dehydration Current visit: Yes Status: Acute Category: Medical Code(s): E86.0 - Dehydration (2) Acute pancreatitis Current visit: Yes Status: Acute Qualifiers: Pancreatitis type: unspecified pancreatitis type Acute pancreatitis complication: unspecified Qualified Code(s): K85.90 - Acute pancreatitis without necrosis or infection, unspecified Category: Medical Code(s): K85.90 - Acute pancreatitis without necrosis or infection, unspecified (3) UTI (urinary tract infection) Current visit: Yes Status: Acute Qualifiers: Urinary tract infection type: site unspecified Hematuria presence: without hematuria Qualified Code(s): N39.0 - Urinary tract infection, site not specified Category: Medical Code(s): N39.0 - Urinary tract infection, site not specified (4) Acute renal failure Current visit: Yes Status: Chronic Qualifiers: Acute renal failure type: unspecified Qualified Code(s): N17.9 - Acute kidney failure, unspecified Category: Medical Code(s): N17.9 - Acute kidney failure, unspecified (5) Diabetes mellitus Current visit: No Status: Chronic Qualifiers: Diabetes mellitus type: type 2 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: without electronics engineering technician use Diabetes mellitus complication status: with neurologic complications Diabetes mellitus complication detail: with polyneuropathy Qualified Code(s): E11.42 - Type 2 diabetes mellitus with diabetic polyneuropathy Category: Medical Code(s): E11.9 - Type 2 diabetes mellitus without complications (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 Current visit: Yes Status: Chronic Category: Medical Code(s): Z79.01 - care home (current) use of 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 (7) Left spastic hemiparesis Current visit: Yes Status: Chronic Category: Medical Code(s): G81.14 - Spastic hemiplegia affecting left nondominant side (8) Hemiparesis affecting left side as late effect of cerebrovascular accident Current visit: Yes Status: Chronic Category: Medical Code(s): I69.354 - Hemiplegia and hemiparesis following cerebral infarction affecting left non- dominant side (9) 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 Current visit: Yes Status: Acute Category: Medical Code(s): E08.621 - Diabetes mellitus due to underlying condition with foot ulcer; L97.519 - Non- pressure chronic ulcer of other part of right foot with unspecified severity - Assessment and plan all Dx Assessment and Plan for all problems:: Saw patient agree with above note. Prelim blood culture report discussed with lab personnel, likely due to skin contaminate. Plan discharge today on oral antibiotic. Follow up in office next week.
[2017-11-22 15:32] VITALS: BP 118/57
--- NOTE | 2017-11-23 08:10 | Discharge Summary ---
General - General Admission date:: 11/19/17 Discharge date: 11/22/17 HPI HPI: This 51-year-old white female who is chronically ill was brought to the emergency room by her family because of essentially no urine output for 2 days. She has complained of right chest and right arm pain. She has had some nausea and vomited on the way to the emergency room. She is diabetic and has had a CVA with resultant left hemiparesis. She has had a left below the knee amputation. She has chronic renal failure. She was given IV fluids in the emergency room. Regarding her lab studies most significantly was an elevated amylase at 279 and lipase at 5159. Her renal functions showed BUN of 65 and creatinine of 3.77. White blood cell count was elevated at 11,800 and the lactic acid was elevated 4.4. Hospital Course Hospital Course: The patient was initially kept NPO and then started on clear liquids. Her nausea and vomiting improved as did her abdominal pain. She was continued on IV fluids. She began urinating. Her renal function improved and her white blood cell count normalized. Her lipase improved as well. Patient did have a diabetic ulcer of the right foot. She was seen in consultation by Dr. Sigala. She had an CONOR of 1.7 on the right indicating calcification. Dr. Calloway applied a dressing and gave her wound care instructions. She did not recommend surgery due to lack of healing potential. She began eating well and passing flatus. She was able to get up and have a shower. She was stable to be discharged home on oral antibiotics. Objective Vital signs: Temp Pulse Resp BP Pulse Ox 98.2 F 56 L 18 118/57 95 11/22/17 15:31 11/22/17 15:31 11/22/17 15:31 11/22/17 15:31 11/22/17 15:31 Narrative: - Constitutional no acute distress - *Routine HEENT Exam Head: Present: normocephalic Eye: Present: PERRL. Absent: conjunctival icterus ENT: Present: mucous membranes moist - *Routine Neck Exam Present: supple. Absent: carotid bruit - Routine Chest/Breast/Axilla Exam Chest wall: Absent: tenderness, mass Breast: Present: right mastectomy - *Routine Respiratory Exam Present: CTA bilaterally. Absent: rales, wheezes - *Routine Cardiovascular Exam Present: RRR, murmur (Aortic murmur 2-3/6) - *Routine Abdominal Exam Present: soft, distended, hernia (Ventral), surgical scars. Absent: tenderness - *Routine Rectal Exam Comments: Not done - *Routine Exam Comments: Not done - *Routine Extremities Exam Comments: There is a left BKA. She has a trace of edema on the right. She has had amputation of the fourth toe on the right. - Routine Back/Spine/Pelvis Exam Comments: She is lying in bed. - *Routine Skin Exam Present: intact - *Routine Neurological Exam Present: alert, oriented X3 Results Labs on day of discharge: Labs from last 24 hours 11/22/17 11/22/17 17:14 12:03 POC Glucose 360 H* 303 H* Preliminary micro results at discharge 11/19/17 16:06 Blood Culture - Preliminary Blood 11/19/17 16:06 Blood Culture - Preliminary Blood NO GROWTH AFTER 48 HOURS DS: Diagnosis - Discharge Diagnosis (1) Dehydration Status: Acute (2) Acute pancreatitis Status: Acute (3) UTI (urinary tract infection) Status: Acute (4) Acute renal failure Status: Chronic (5) Diabetes mellitus Status: Chronic (6) FPC 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 Status: Chronic (7) Left spastic hemiparesis Status: Chronic (8) Hemiparesis affecting left side as late effect of cerebrovascular accident Status: Chronic (9) 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 Status: Acute Discharge Plan - Patient Discharge Instructions ACTIVITY: Continue current activity DIET: continue same diet Patient Instructions: Acute Pancreatitis - Follow up Plan Follow up with: Shawn Alva MD [Primary Care Provider] - 1 week Disposition: Home, Self-Halfway Medications: Home Medications Medication Instructions Recorded Confirmed Type amiloride 5 mg tablet 10 mg PO DAILY 09/22/17 11/20/17 History aspirin 25 mg-dipyridamole 200 mg 1 cap PO BID 09/22/17 11/19/17 History capsule,ext.release 12 hr multiphase baclofen 10 mg tablet 10 mg PO DAILY 09/22/17 11/20/17 History clopidogrel 75 mg tablet 75 mg PO DAILY 09/22/17 11/19/17 History glimepiride 2 mg tablet 2 mg PO QAM 09/22/17 11/19/17 History linagliptin 2.5 mg-metformin 1,000 1 tab PO BID 09/22/17 11/19/17 History mg tablet metolazone 5 mg tablet 5 mg PO DAILY 09/22/17 11/19/17 History metoprolol tartrate 25 mg tablet 25 mg PO BID 09/22/17 11/19/17 History rosuvastatin 10 mg tablet 10 mg PO DAILY 09/22/17 11/19/17 History spironolactone 25 mg tablet 25 mg PO DAILY 09/22/17 11/20/17 History warfarin 5 mg tablet 5 mg PO SUTUWETHFRSA 09/22/17 11/20/17 History Loratadine [Allergy] 10 mg PO DAILY 11/19/17 11/19/17 History Potassium Chloride [Pot Chlor 20 40 meq PO TID 11/19/17 11/20/17 History mEq Tab] Baclofen [Lioresal 10mg tablet] 20 mg PO HS 11/20/17 11/20/17 History Citalopram Hydrobromide [Celexa 20 mg PO DAILY 11/20/17 11/20/17 History 20mg Tablet] Donepezil HCl [Aricept] 5 mg PO HS 11/20/17 11/20/17 History Insulin Glargine,Hum.rec.anlog 60 units SQ HS 11/20/17 11/20/17 History [Lantus Insulin 100units/mL 10mL vial] Insulin Lispro [Humalog Kwikpen 0 unit SQ AC 11/20/17 11/20/17 History U-100] Warfarin Sodium 7.5 mg PO MO 11/20/17 11/20/17 History Prescriptions/Medication Reconciliation: New cefUROXime axetil [Ceftin 250mg Tablet] 500 mg PO BID #20 tab Continue baclofen 10 mg tablet 10 mg PO DAILY amiloride 5 mg tablet 10 mg PO DAILY spironolactone 25 mg tablet 25 mg PO DAILY aspirin 25 mg-dipyridamole 200 mg capsule,ext.release 12 hr multiphase 1 cap PO BID linagliptin 2.5 mg-metformin 1,000 mg tablet 1 tab PO BID clopidogrel 75 mg tablet 75 mg PO DAILY rosuvastatin 10 mg tablet 10 mg PO DAILY warfarin 5 mg tablet 5 mg PO SUTUWETHFRSA metolazone 5 mg tablet 5 mg PO DAILY glimepiride 2 mg tablet 2 mg PO QAM metoprolol tartrate 25 mg tablet 25 mg PO BID collagenase clostridium histolyticum 250 unit/gram topical ointment 1 applic TOPICAL QDAY #30 g Loratadine [Allergy] 10 mg PO DAILY Citalopram Hydrobromide [Celexa 20mg Tablet] 20 mg PO DAILY Warfarin Sodium 7.5 mg PO MO Insulin Lispro [Humalog Kwikpen U-100] 0 unit SQ AC Donepezil HCl [Aricept] 5 mg PO HS Potassium Chloride [Pot Chlor 20 mEq Tab] 40 meq PO TID Baclofen [Lioresal 10mg tablet] 20 mg PO HS Insulin Glargine,Hum.rec.anlog [Lantus Insulin 100units/mL 10mL vial] 60 units SQ HS
== END 2017-11-22 18:38 | disposition home or self-care (01) ==
LOC: ER 15:28 → 2ND 15:28 → OBSVTOIN 19:55 → 2ND 19:56
PROVIDERS: ADMIT Family Medicine; ATTEND Family Medicine

== ENCOUNTER 2017-12-07 12:50 | Outpatient (CLI) | payer MEDICARE, MEDICAID, SELFPAY ==
[2017-12-07 14:17] VITALS: BMI 31.8
--- NOTE | 2017-12-07 14:32 | XR_ITS ---
XR chest portable PICC plac HISTORY: ITS.REASON: PICC line placement ORDERING PHYSICIAN: Tabatha Calloway DPM PATIENT AGE: 51 years COMPARISON: 11/06/2016 FINDINGS: Right upper extremity PICC line has been inserted. The tip is in region of the superior vena cava in good position. There has been a prior CABG and there are surgical clips in the right axilla. The lungs are clear. IMPRESSION: Good placement of the right upper extremity PICC line
[2017-12-07 14:35] VITALS: BMI 31.8
[2017-12-07 14:55] VITALS: BP 114/76; PULSE 75; RESP 18; TEMP 36.6; O2SAT 93
[2017-12-07 15:25] VITALS: BP 104/79; PULSE 75; O2SAT 94
== END 2017-12-07 15:40 | disposition home or self-care (01) ==
LOC: INF 14:30
PROVIDERS: PCP Family Medicine; Visit Provider Podiatrist
DX: L97.519 Non-pressure chronic ulcer of other part of right foot with unspecified severity (principal)
CPT/HCPCS: 36569; 71045; 96365; C1751

== ENCOUNTER 2017-12-08 16:15 | Outpatient (CLI) | payer MEDICARE, MEDICAID, SELFPAY ==
[2017-12-08 16:37] VITALS: BP 134/65; PULSE 74; RESP 18; TEMP 36.6; O2SAT 99
[2017-12-08 17:07] VITALS: BP 131/61; PULSE 78; RESP 18; O2SAT 97
[2017-12-08 17:20] VITALS: BP 134/64; PULSE 79; RESP 18; O2SAT 97
== END 2017-12-08 17:25 | disposition home or self-care (01) ==
LOC: INF 16:36
PROVIDERS: PCP Family Medicine; Visit Provider Podiatrist
DX: L97.512 Non-pressure chronic ulcer of other part of right foot with fat layer exposed (principal); E11.42 Type 2 diabetes mellitus with diabetic polyneuropathy
CPT/HCPCS: 96365

== ENCOUNTER 2017-12-09 15:45 | Outpatient (CLI) | payer MEDICARE, MEDICAID, SELFPAY ==
[2017-12-09 16:00] VITALS: BP 100/55; PULSE 81; RESP 18; TEMP 36.8; O2SAT 98
[2017-12-09 16:30] VITALS: BP 97/59; PULSE 81; RESP 18
[2017-12-09 16:45] VITALS: BP 102/56; PULSE 89; RESP 18
== END 2017-12-09 16:45 | disposition home or self-care (01) ==
LOC: INF 16:19
PROVIDERS: PCP Family Medicine; Visit Provider Podiatrist
DX: L97.512 Non-pressure chronic ulcer of other part of right foot with fat layer exposed (principal); E11.42 Type 2 diabetes mellitus with diabetic polyneuropathy
CPT/HCPCS: 96365

== ENCOUNTER 2017-12-10 15:31 | Outpatient (CLI) | payer MEDICARE, MEDICAID, SELFPAY ==
[2017-12-10 15:48] VITALS: BP 110/61; PULSE 78; RESP 18; TEMP 36.6; O2SAT 98
--- NOTE | 2017-12-10 15:53 | PC.NURSE ---
PATIENT PROVIDED WITH A CH[employer] SANDWICH AND DIET DR. JONES.
== END 2017-12-10 17:00 | disposition home or self-care (01) ==
PROVIDERS: PCP Family Medicine; Visit Provider Podiatrist
DX: L97.512 Non-pressure chronic ulcer of other part of right foot with fat layer exposed (principal); E11.42 Type 2 diabetes mellitus with diabetic polyneuropathy
CPT/HCPCS: 96365

== ENCOUNTER 2017-12-11 13:25 | Outpatient (CLI) | payer MEDICARE, MEDICAID, SELFPAY ==
[2017-12-11 13:39] VITALS: BP 99/59; PULSE 84; RESP 18; O2SAT 100
== END 2017-12-11 14:00 | disposition home or self-care (01) ==
LOC: INF 13:25
PROVIDERS: PCP Family Medicine; Visit Provider Podiatrist
DX: L97.512 Non-pressure chronic ulcer of other part of right foot with fat layer exposed (principal); E11.42 Type 2 diabetes mellitus with diabetic polyneuropathy
CPT/HCPCS: 96365

== ENCOUNTER 2017-12-12 14:10 | Outpatient (CLI) | payer MEDICARE, MEDICAID, SELFPAY ==
[2017-12-12 14:35] VITALS: BP 94/54; PULSE 72; RESP 18; O2SAT 94
[2017-12-12 15:10] VITALS: BP 81/42; PULSE 85; RESP 18
== END 2017-12-12 15:35 | disposition home or self-care (01) ==
LOC: INF 14:23
PROVIDERS: PCP Family Medicine; Visit Provider Podiatrist
DX: L97.512 Non-pressure chronic ulcer of other part of right foot with fat layer exposed (principal); E11.42 Type 2 diabetes mellitus with diabetic polyneuropathy
CPT/HCPCS: 96365

== ENCOUNTER 2017-12-13 13:26 | Outpatient (CLI) | payer MEDICARE, MEDICAID, SELFPAY ==
[2017-12-13 13:52] VITALS: BP 103/68; PULSE 70; RESP 18; TEMP 36.5; O2SAT 98
[2017-12-13 14:22] VITALS: BP 109/64; PULSE 72; RESP 18; O2SAT 97
[2017-12-13 14:45] VITALS: BP 105/61; PULSE 74; RESP 18; O2SAT 98
== END 2017-12-13 14:45 | disposition home or self-care (01) ==
LOC: INF 13:26
PROVIDERS: PCP Family Medicine; Visit Provider Podiatrist
DX: L97.512 Non-pressure chronic ulcer of other part of right foot with fat layer exposed (principal); E11.42 Type 2 diabetes mellitus with diabetic polyneuropathy
CPT/HCPCS: 96365

== ENCOUNTER 2017-12-14 13:52 | Outpatient (CLI) | payer MEDICARE, MEDICAID, SELFPAY ==
[2017-12-14 14:22] VITALS: BP 132/50; PULSE 78; RESP 18; TEMP 36.3; O2SAT 97
[2017-12-14 14:45] VITALS: BP 128/74; PULSE 74; RESP 18
[2017-12-14 15:15] VITALS: BP 127/58; PULSE 78; RESP 18; TEMP 36.6; O2SAT 97
== END 2017-12-14 15:15 | disposition home or self-care (01) ==
LOC: INF 13:52
PROVIDERS: PCP Family Medicine; Visit Provider Podiatrist
DX: L97.512 Non-pressure chronic ulcer of other part of right foot with fat layer exposed (principal); E11.42 Type 2 diabetes mellitus with diabetic polyneuropathy; I73.9 Peripheral vascular disease, unspecified
CPT/HCPCS: 96365

== ENCOUNTER 2017-12-15 11:36 | Outpatient (CLI) | payer MEDICARE, MEDICAID, SELFPAY ==
[2017-12-15 11:55] VITALS: BP 107/49; PULSE 80; RESP 18; TEMP 36.8
[2017-12-15 12:25] VITALS: BP 119/47; PULSE 79; RESP 18
== END 2017-12-15 13:05 | disposition home or self-care (01) ==
LOC: INF 11:36
PROVIDERS: PCP Family Medicine; Visit Provider Podiatrist
DX: L97.512 Non-pressure chronic ulcer of other part of right foot with fat layer exposed (principal); E11.42 Type 2 diabetes mellitus with diabetic polyneuropathy; I73.9 Peripheral vascular disease, unspecified
CPT/HCPCS: 96365

== ENCOUNTER 2017-12-16 13:21 | Outpatient (CLI) | payer MEDICARE, MEDICAID, SELFPAY ==
[2017-12-16 14:05] VITALS: BP 107/66; PULSE 80; RESP 18; TEMP 36.6; O2SAT 97
[2017-12-16 14:35] VITALS: BP 110/69; PULSE 79; RESP 18; O2SAT 97
[2017-12-16 14:50] VITALS: BP 105/67; PULSE 81; RESP 18; O2SAT 96
== END 2017-12-16 15:00 | disposition home or self-care (01) ==
LOC: INF 13:21
PROVIDERS: PCP Family Medicine; Visit Provider Podiatrist
DX: L97.512 Non-pressure chronic ulcer of other part of right foot with fat layer exposed (principal); E11.42 Type 2 diabetes mellitus with diabetic polyneuropathy; I73.9 Peripheral vascular disease, unspecified
CPT/HCPCS: 96365

== ENCOUNTER 2017-12-17 12:08 | Outpatient (CLI) | payer MEDICARE, MEDICAID, SELFPAY ==
[2017-12-17 12:30] VITALS: BP 131/67; PULSE 81; RESP 18; TEMP 36.6; O2SAT 97
[2017-12-17 12:46] VITALS: BMI 31.9
[2017-12-17 13:25] VITALS: BP 148/66; PULSE 84; RESP 18; TEMP 36.4; O2SAT 96
== END 2017-12-17 13:25 | disposition home or self-care (01) ==
LOC: INF 12:09
PROVIDERS: PCP Family Medicine; Visit Provider Podiatrist
DX: L97.512 Non-pressure chronic ulcer of other part of right foot with fat layer exposed (principal); E11.42 Type 2 diabetes mellitus with diabetic polyneuropathy; I73.9 Peripheral vascular disease, unspecified
CPT/HCPCS: 96365

== ENCOUNTER 2017-12-18 11:59 | Outpatient (CLI) | payer MEDICARE, MEDICAID, SELFPAY ==
[2017-12-18 11:59] VITALS: BP 115/69; PULSE 82; RESP 18; O2SAT 96
[2017-12-18 12:00] VITALS: BP 125/68; PULSE 79; RESP 18; O2SAT 98
== END 2017-12-18 12:50 | disposition home or self-care (01) ==
LOC: INF 11:59
PROVIDERS: PCP Family Medicine; Visit Provider Podiatrist
DX: L97.512 Non-pressure chronic ulcer of other part of right foot with fat layer exposed (principal); E11.42 Type 2 diabetes mellitus with diabetic polyneuropathy; I73.9 Peripheral vascular disease, unspecified
CPT/HCPCS: 96365

== ENCOUNTER 2017-12-19 13:25 | Outpatient (CLI) | payer MEDICARE, MEDICAID, SELFPAY ==
[2017-12-19 13:28] VITALS: BP 125/64; PULSE 78; RESP 18; TEMP 36.4; O2SAT 96
[2017-12-19 14:05] VITALS: BP 121/62; PULSE 82; RESP 18; TEMP 36.6; O2SAT 97
== END 2017-12-19 14:15 | disposition home or self-care (01) ==
LOC: INF 13:25
PROVIDERS: PCP Family Medicine; Visit Provider Podiatrist
DX: L97.512 Non-pressure chronic ulcer of other part of right foot with fat layer exposed (principal); E11.42 Type 2 diabetes mellitus with diabetic polyneuropathy; I73.9 Peripheral vascular disease, unspecified
CPT/HCPCS: 96365

== ENCOUNTER 2017-12-20 13:40 | Outpatient (CLI) | payer MEDICARE, MEDICAID, SELFPAY ==
[2017-12-20 13:50] VITALS: BP 125/70; PULSE 68; RESP 20; TEMP 36.9; O2SAT 96
[2017-12-20 14:25] VITALS: BP 128/70; PULSE 68; RESP 20; TEMP 36.9; O2SAT 96
== END 2017-12-20 14:30 | disposition home or self-care (01) ==
LOC: INF 13:52
PROVIDERS: PCP Family Medicine; Visit Provider Podiatrist
DX: L97.512 Non-pressure chronic ulcer of other part of right foot with fat layer exposed (principal); E11.42 Type 2 diabetes mellitus with diabetic polyneuropathy; I73.9 Peripheral vascular disease, unspecified
CPT/HCPCS: 96365

== ENCOUNTER → 2017-12-21 15:17 | Outpatient (CLI) | payer MEDICARE, MEDICAID, SELFPAY ==
[2017-12-21 15:31] VITALS: BP 94/56; PULSE 80; RESP 18; TEMP 36.8; O2SAT 98; BMI 31.8
[2017-12-21 16:15] VITALS: BP 94/56; PULSE 80; RESP 18; TEMP 36.8; O2SAT 98
== END ==
PROVIDERS: PCP Family Medicine; Visit Provider Podiatrist
DX: L97.512 Non-pressure chronic ulcer of other part of right foot with fat layer exposed (principal); E11.42 Type 2 diabetes mellitus with diabetic polyneuropathy; I73.9 Peripheral vascular disease, unspecified
CPT/HCPCS: 96365; 96366

== ENCOUNTER 2017-12-22 12:00 | Outpatient (CLI) | payer MEDICARE, MEDICAID, SELFPAY ==
[2017-12-22 12:30] VITALS: BP 118/59; PULSE 76; RESP 18; TEMP 36.6
[2017-12-22 13:00] VITALS: BP 90/49; PULSE 77; RESP 18
[2017-12-22 13:35] VITALS: BP 90/49; PULSE 77; RESP 18
--- NOTE | 2017-12-22 14:49 | PC.NURSE ---
1335: Called and spoke with Marlyn in ED. Gave a quick report on patient. Sent patient for further evaluation. Mother concerned about patient jerking and making noises she normally does not make. Patient awake, and drinking soft drink at this time. Patient is in wheelchair. Sonia Vaughn RN transporting patient to ER at this time.
== END 2017-12-22 13:35 | disposition still patient (30) ==
LOC: INF 12:21
PROVIDERS: PCP Family Medicine; Visit Provider Podiatrist
DX: L97.512 Non-pressure chronic ulcer of other part of right foot with fat layer exposed (principal); E11.42 Type 2 diabetes mellitus with diabetic polyneuropathy; I73.9 Peripheral vascular disease, unspecified
CPT/HCPCS: 96365

== ENCOUNTER 2017-12-23 13:20 | Outpatient (CLI) | payer MEDICARE, MEDICAID, SELFPAY ==
[2017-12-23 14:10] VITALS: BP 132/81; PULSE 84; RESP 18
[2017-12-23 14:40] VITALS: BP 127/79; PULSE 91; RESP 18
== END 2017-12-23 15:05 | disposition home or self-care (01) ==
LOC: INF 14:21
PROVIDERS: PCP Family Medicine; Visit Provider Podiatrist
DX: L97.512 Non-pressure chronic ulcer of other part of right foot with fat layer exposed (principal); E11.42 Type 2 diabetes mellitus with diabetic polyneuropathy; I73.9 Peripheral vascular disease, unspecified
CPT/HCPCS: 96365

== ENCOUNTER → 2017-12-24 11:50 | Outpatient (CLI) | payer MEDICARE, MEDICAID, SELFPAY ==
[2017-12-24 12:03] VITALS: BP 98/58; PULSE 72; RESP 20; TEMP 36.6; O2SAT 98; BMI 31.8
[2017-12-24 14:31] VITALS: BP 116/67; PULSE 78; RESP 18; TEMP 36.7; O2SAT 97
== END ==
PROVIDERS: PCP Family Medicine; Visit Provider Podiatrist
DX: L97.512 Non-pressure chronic ulcer of other part of right foot with fat layer exposed (principal); E11.42 Type 2 diabetes mellitus with diabetic polyneuropathy; I73.9 Peripheral vascular disease, unspecified
CPT/HCPCS: 96365

== ENCOUNTER → 2017-12-25 12:19 | Outpatient (CLI) | payer MEDICARE, MEDICAID, SELFPAY ==
[2017-12-25 12:42] VITALS: BMI 31.8
[2017-12-25 12:43] VITALS: BP 108/72; PULSE 88; RESP 20; TEMP 37; O2SAT 97
[2017-12-25 13:15] VITALS: BP 105/70; PULSE 81; RESP 20; TEMP 36.8; O2SAT 96
== END ==
PROVIDERS: PCP Family Medicine; Visit Provider Podiatrist
DX: L97.512 Non-pressure chronic ulcer of other part of right foot with fat layer exposed (principal); E11.42 Type 2 diabetes mellitus with diabetic polyneuropathy; I73.9 Peripheral vascular disease, unspecified
CPT/HCPCS: 96365

== ENCOUNTER 2017-12-26 12:50 | Outpatient (CLI) | payer MEDICARE, MEDICAID, SELFPAY ==
[2017-12-26 13:30] VITALS: BP 126/76; PULSE 93; RESP 18; TEMP 36.1
[2017-12-26 14:00] VITALS: BP 113/67; PULSE 90; RESP 18
== END 2017-12-26 14:30 | disposition home or self-care (01) ==
LOC: INF 13:09
PROVIDERS: PCP Family Medicine; Visit Provider Podiatrist
DX: L97.512 Non-pressure chronic ulcer of other part of right foot with fat layer exposed (principal); E11.42 Type 2 diabetes mellitus with diabetic polyneuropathy; I73.9 Peripheral vascular disease, unspecified
CPT/HCPCS: 96365

== ENCOUNTER 2017-12-27 12:40 | Outpatient (CLI) | payer MEDICARE, MEDICAID, SELFPAY ==
[2017-12-27 12:40] VITALS: BP 97/55; PULSE 82; RESP 18; TEMP 36.6; O2SAT 96
[2017-12-27 13:10] VITALS: BP 101/59; PULSE 84; RESP 18; O2SAT 97
[2017-12-27 13:25] VITALS: BP 99/56; PULSE 81; RESP 18; O2SAT 96
== END 2017-12-27 13:30 | disposition home or self-care (01) ==
LOC: INF 12:40
PROVIDERS: PCP Family Medicine; Visit Provider Podiatrist
DX: L97.512 Non-pressure chronic ulcer of other part of right foot with fat layer exposed (principal); E11.42 Type 2 diabetes mellitus with diabetic polyneuropathy; I73.9 Peripheral vascular disease, unspecified
CPT/HCPCS: 96365

== ENCOUNTER 2017-12-28 12:55 | Outpatient (CLI) | payer MEDICARE, MEDICAID, SELFPAY ==
[2017-12-28 13:04] VITALS: BMI 31.8
[2017-12-28 13:30] VITALS: BP 113/48; PULSE 81; RESP 18; TEMP 36.8
[2017-12-28 13:40] LABS: Basophils % 0.5 % (0.1-2.0); Eosinophils # 0.3 K/mm3 (0.0-0.4); Eosinophils % 3.8 % (0.1-12.0); Hematocrit 37.1 % (37.0-47.0); Hemoglobin 11.4 g/dL (12.2-16.2); Lymphocytes # 2.2 K/mm3 (0.7-4.5); Lymphocytes % 32.1 K/mm3 (10-50); Mean Corpuscular HGB Conc 30.7 g/dL (31.8-35.4); Mean Corpuscular Hemoglobin 25.7 pg (27.0-31.2); Mean Corpuscular Volume 83.7 fl (81-99); Mean Platelet Volume 8.2 fl (7.4-10.4); Monocytes # 0.3 K/mm3 (0.1-1.0); Monocytes % 4.5 % (1.7-9.3); Platelet Count 254 K/mm3 (142-424); Red Blood Count 4.44 M/mm3 (4.20-5.40); Red Cell Distribution Width 18.3 % (11.5-17.5); White Blood Count 6.7 K/mm3 (4.8-10.8)
[2017-12-28 13:46] LABS: Anion Gap 14.4 mEq/L (5-15); Blood Urea Nitrogen 22 mg/dL (7-18); Calcium 9.2 mg/dL (8.5-10.1); Carbon Dioxide 26 mmol/L (21.0-32.0); Chloride 103 mmol/L (98-107); Creatinine Clearance Estimated 68 mL/min (0-300); Creatinine,Serum 1.15 mg/dL (0.55-1.02); Estimated Glomerular Filt Rate 50 ml/min (>60); GFR (African American) 60 ML/MIN (>60); Glucose 86 mg/dL (74-106); Potassium 3.4 mmoL/L (3.5-5.1); Sodium 140 mmol/L (136-145)
[2017-12-28 13:49] LABS: INR 2.11 (0.9-1.1); Prothrombin Time 21.3 seconds (9.4-11.8)
[2017-12-28 14:00] VITALS: BP 120/69; PULSE 91; RESP 18
== END 2017-12-28 14:30 | disposition home or self-care (01) ==
LOC: INF 13:13
PROVIDERS: PCP Family Medicine; Visit Provider Podiatrist
DX: Z79.01 Long term (current) use of 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 (principal); Z51.81 Encounter for therapeutic drug level monitoring; E86.0 Dehydration; Z86.718 Personal history of other venous thrombosis and embolism
CPT/HCPCS: 80048; 85025; 85610; 96365

== ENCOUNTER 2017-12-29 12:45 | Outpatient (CLI) | payer MEDICARE, MEDICAID, SELFPAY ==
[2017-12-29 13:25] VITALS: BP 92/42; PULSE 79; RESP 20; TEMP 36.5; O2SAT 99
[2017-12-29 13:55] VITALS: BP 95/49; PULSE 76; RESP 20; O2SAT 98
[2017-12-29 14:10] VITALS: BP 97/46; PULSE 74; RESP 20; O2SAT 98
== END 2017-12-29 14:30 | disposition home or self-care (01) ==
LOC: INF 13:36
PROVIDERS: PCP Family Medicine; Visit Provider Podiatrist
DX: L97.512 Non-pressure chronic ulcer of other part of right foot with fat layer exposed (principal); E11.42 Type 2 diabetes mellitus with diabetic polyneuropathy; I73.9 Peripheral vascular disease, unspecified
CPT/HCPCS: 96365

== ENCOUNTER 2017-12-30 11:00 | Outpatient (CLI) | payer MEDICARE, MEDICAID, SELFPAY ==
[2017-12-30 11:29] VITALS: BP 116/54; PULSE 85; RESP 18; TEMP 36.5; O2SAT 98
[2017-12-30 11:59] VITALS: BP 112/57; PULSE 87; RESP 18; O2SAT 97
[2017-12-30 12:25] VITALS: BP 111/52; PULSE 88; RESP 18; O2SAT 97
== END 2017-12-30 12:30 | disposition home or self-care (01) ==
LOC: INF 11:47
PROVIDERS: PCP Family Medicine; Visit Provider Podiatrist
DX: L97.512 Non-pressure chronic ulcer of other part of right foot with fat layer exposed (principal); E11.42 Type 2 diabetes mellitus with diabetic polyneuropathy; I73.9 Peripheral vascular disease, unspecified
CPT/HCPCS: 96365

== ENCOUNTER → 2017-12-31 12:07 | Outpatient (CLI) | payer MEDICARE, MEDICAID, SELFPAY ==
[2017-12-31 12:43] VITALS: BP 122/70; PULSE 78; RESP 16; TEMP 36.8; O2SAT 95; BMI 31.2
[2017-12-31 13:35] VITALS: BP 99/48; PULSE 85; RESP 18; TEMP 37; O2SAT 95
== END ==
PROVIDERS: PCP Family Medicine; Visit Provider Podiatrist
DX: L97.512 Non-pressure chronic ulcer of other part of right foot with fat layer exposed (principal); E11.42 Type 2 diabetes mellitus with diabetic polyneuropathy; I73.9 Peripheral vascular disease, unspecified
CPT/HCPCS: 96365

== ENCOUNTER → 2018-01-01 12:08 | Outpatient (CLI) | payer MEDICARE, MEDICAID, SELFPAY ==
[2018-01-01 12:18] VITALS: BMI 31.2
[2018-01-01 12:20] VITALS: BP 104/69; PULSE 72; RESP 18; TEMP 36.2; O2SAT 100
[2018-01-01 13:00] VITALS: BP 101/51; PULSE 76; RESP 16; TEMP 36.7; O2SAT 100
== END ==
PROVIDERS: PCP Family Medicine; Visit Provider Podiatrist
DX: L97.512 Non-pressure chronic ulcer of other part of right foot with fat layer exposed (principal); E11.42 Type 2 diabetes mellitus with diabetic polyneuropathy; I73.9 Peripheral vascular disease, unspecified
CPT/HCPCS: 96365

== ENCOUNTER 2018-01-02 13:15 | Outpatient (CLI) | payer MEDICARE, MEDICAID, SELFPAY ==
[2018-01-02 13:25] VITALS: BP 110/57; PULSE 75; RESP 20; TEMP 36.7; O2SAT 96
[2018-01-02 13:55] VITALS: BP 109/51; PULSE 79; RESP 20; O2SAT 97
== END 2018-01-02 14:30 | disposition home or self-care (01) ==
LOC: INF 13:15
PROVIDERS: PCP Family Medicine; Visit Provider Podiatrist
DX: L97.512 Non-pressure chronic ulcer of other part of right foot with fat layer exposed (principal); E11.42 Type 2 diabetes mellitus with diabetic polyneuropathy; I73.9 Peripheral vascular disease, unspecified
CPT/HCPCS: 96365

== ENCOUNTER 2018-01-03 13:07 | Outpatient (CLI) | payer MEDICARE, MEDICAID, SELFPAY ==
[2018-01-03 13:32] VITALS: BP 116/51; PULSE 78; RESP 18; TEMP 36.8; O2SAT 96; BMI 33.0
[2018-01-03 14:25] VITALS: BP 118/60; PULSE 75; RESP 18; O2SAT 97
== END 2018-01-03 14:25 | disposition home or self-care (01) ==
LOC: INF 13:08
PROVIDERS: PCP Family Medicine; Visit Provider Podiatrist
DX: L97.512 Non-pressure chronic ulcer of other part of right foot with fat layer exposed (principal); E11.42 Type 2 diabetes mellitus with diabetic polyneuropathy; I73.9 Peripheral vascular disease, unspecified
CPT/HCPCS: 96365

== ENCOUNTER 2018-01-04 13:20 | Outpatient (CLI) | payer MEDICARE, MEDICAID, SELFPAY ==
[2018-01-04 13:36] VITALS: BP 109/46; PULSE 59; RESP 20; TEMP 36.8; O2SAT 99
[2018-01-04 14:06] VITALS: BP 110/51; PULSE 57; RESP 20; O2SAT 99
[2018-01-04 14:35] VITALS: BP 105/46; PULSE 55; RESP 20; O2SAT 98
== END 2018-01-04 14:40 | disposition home or self-care (01) ==
LOC: INF 13:20
PROVIDERS: PCP Family Medicine; Visit Provider Podiatrist
DX: L97.512 Non-pressure chronic ulcer of other part of right foot with fat layer exposed (principal); E11.42 Type 2 diabetes mellitus with diabetic polyneuropathy; I73.9 Peripheral vascular disease, unspecified
CPT/HCPCS: 96365

== ENCOUNTER 2018-01-05 12:30 | Outpatient (CLI) | payer MEDICARE, MEDICAID, SELFPAY ==
[2018-01-05 13:05] VITALS: BP 94/66; PULSE 70; RESP 18; O2SAT 100
[2018-01-05 13:35] VITALS: BP 138/66; PULSE 79; RESP 18
== END 2018-01-05 14:00 | disposition home or self-care (01) ==
LOC: INF 12:50
PROVIDERS: PCP Family Medicine; Visit Provider Podiatrist
DX: L97.512 Non-pressure chronic ulcer of other part of right foot with fat layer exposed (principal); E11.42 Type 2 diabetes mellitus with diabetic polyneuropathy; I73.9 Peripheral vascular disease, unspecified
CPT/HCPCS: 96365

== ENCOUNTER 2018-01-06 12:45 | Outpatient (CLI) | payer MEDICARE, MEDICAID, SELFPAY ==
[2018-01-06 13:10] VITALS: BP 122/70; PULSE 68; RESP 20; TEMP 36.9; O2SAT 96
[2018-01-06 13:45] VITALS: BP 116/70; PULSE 72; RESP 16; TEMP 36.3; O2SAT 96
== END 2018-01-06 13:45 | disposition home or self-care (01) ==
LOC: INF 12:48
PROVIDERS: PCP Family Medicine; Visit Provider Podiatrist
DX: L97.512 Non-pressure chronic ulcer of other part of right foot with fat layer exposed (principal); E11.42 Type 2 diabetes mellitus with diabetic polyneuropathy; I73.9 Peripheral vascular disease, unspecified
CPT/HCPCS: 96365

== ENCOUNTER 2018-01-07 13:28 | Outpatient (CLI) | payer MEDICARE, MEDICAID, SELFPAY ==
[2018-01-07 14:35] VITALS: BP 94/58; PULSE 76; RESP 18; TEMP 36.9; O2SAT 97
[2018-01-07 15:09] VITALS: BP 115/74; PULSE 77; RESP 18; TEMP 36.7; O2SAT 99
== END 2018-01-07 14:35 | disposition home or self-care (01) ==
LOC: INF 13:29
PROVIDERS: PCP Family Medicine; Visit Provider Podiatrist
DX: L97.512 Non-pressure chronic ulcer of other part of right foot with fat layer exposed (principal); E11.42 Type 2 diabetes mellitus with diabetic polyneuropathy; I73.9 Peripheral vascular disease, unspecified
CPT/HCPCS: 96365

== ENCOUNTER 2018-01-08 11:47 | Outpatient (CLI) | payer MEDICARE, MEDICAID, SELFPAY ==
[2018-01-08 12:00] VITALS: BP 120/65; PULSE 73; RESP 18; TEMP 36.5; O2SAT 98
== END 2018-01-08 12:45 | disposition home or self-care (01) ==
LOC: INF 11:48
PROVIDERS: PCP Family Medicine; Visit Provider Podiatrist
DX: L97.512 Non-pressure chronic ulcer of other part of right foot with fat layer exposed (principal); E11.42 Type 2 diabetes mellitus with diabetic polyneuropathy; I73.9 Peripheral vascular disease, unspecified
CPT/HCPCS: 96365

== ENCOUNTER 2018-01-09 13:00 | Outpatient (CLI) | payer MEDICARE, MEDICAID, SELFPAY ==
[2018-01-09 13:15] VITALS: BP 126/69; PULSE 68; RESP 20; TEMP 37.1; O2SAT 96
[2018-01-09 13:45] VITALS: BP 128/69; PULSE 68; RESP 20; TEMP 37.2; O2SAT 96
== END 2018-01-09 13:45 | disposition home or self-care (01) ==
LOC: INF 13:11
PROVIDERS: PCP Family Medicine; Visit Provider Podiatrist
DX: L97.512 Non-pressure chronic ulcer of other part of right foot with fat layer exposed (principal); E11.42 Type 2 diabetes mellitus with diabetic polyneuropathy; I73.9 Peripheral vascular disease, unspecified
CPT/HCPCS: 96365

== ENCOUNTER 2018-01-10 14:10 | Outpatient (CLI) | payer MEDICARE, MEDICAID, SELFPAY ==
[2018-01-10 13:09] VITALS: BP 99/56; PULSE 62; RESP 18; TEMP 36.4; O2SAT 97
[2018-01-10 13:39] VITALS: BP 101/55; PULSE 67; RESP 18; O2SAT 96
[2018-01-10 14:15] VITALS: BP 98/52; PULSE 61; RESP 18; O2SAT 96
== END 2018-01-10 14:20 | disposition home or self-care (01) ==
LOC: INF 14:10
PROVIDERS: PCP Family Medicine; Visit Provider Podiatrist
DX: L97.512 Non-pressure chronic ulcer of other part of right foot with fat layer exposed (principal); E11.42 Type 2 diabetes mellitus with diabetic polyneuropathy; I73.9 Peripheral vascular disease, unspecified
CPT/HCPCS: 96365

== ENCOUNTER 2018-01-11 13:35 | Outpatient (CLI) | payer MEDICARE, MEDICAID, SELFPAY ==
[2018-01-11 13:45] VITALS: BP 117/73; PULSE 86; RESP 20; TEMP 36.5; O2SAT 97
[2018-01-11 14:15] VITALS: BP 112/69; PULSE 87; RESP 20; O2SAT 96
[2018-01-11 14:40] VITALS: BP 116/71; PULSE 75; RESP 20; O2SAT 97
== END 2018-01-11 14:40 | disposition home or self-care (01) ==
LOC: INF 14:30
PROVIDERS: PCP Family Medicine; Visit Provider Podiatrist
DX: L97.512 Non-pressure chronic ulcer of other part of right foot with fat layer exposed (principal); E11.42 Type 2 diabetes mellitus with diabetic polyneuropathy; I73.9 Peripheral vascular disease, unspecified
CPT/HCPCS: 96365

== ENCOUNTER 2018-01-12 13:30 | Outpatient (CLI) | payer MEDICARE, MEDICAID, SELFPAY ==
[2018-01-12 13:45] VITALS: BP 111/60; PULSE 75; RESP 18; O2SAT 96
[2018-01-12 14:20] VITALS: BP 107/82; PULSE 80; RESP 18
== END 2018-01-12 14:55 | disposition home or self-care (01) ==
LOC: INF 13:30
PROVIDERS: PCP Family Medicine; Visit Provider Podiatrist
DX: L97.512 Non-pressure chronic ulcer of other part of right foot with fat layer exposed (principal); E11.42 Type 2 diabetes mellitus with diabetic polyneuropathy; I73.9 Peripheral vascular disease, unspecified
CPT/HCPCS: 96365

== ENCOUNTER 2018-01-13 09:45 | Outpatient (CLI) | payer MEDICARE, MEDICAID, SELFPAY ==
[2018-01-13 10:05] VITALS: BP 133/84; PULSE 70; RESP 18; O2SAT 100
[2018-01-13 10:40] VITALS: BP 117/60; PULSE 78; RESP 16
== END 2018-01-13 11:05 | disposition home or self-care (01) ==
LOC: INF 09:56
PROVIDERS: PCP Family Medicine; Visit Provider Podiatrist
DX: L97.512 Non-pressure chronic ulcer of other part of right foot with fat layer exposed (principal); E11.42 Type 2 diabetes mellitus with diabetic polyneuropathy; I73.9 Peripheral vascular disease, unspecified
CPT/HCPCS: 96365

== ENCOUNTER → 2018-01-14 14:03 | Outpatient (CLI) | payer MEDICARE, MEDICAID, SELFPAY ==
[2018-01-14 14:03] VITALS: BP 106/48; PULSE 76; RESP 18; TEMP 36.8; O2SAT 100
[2018-01-14 14:21] VITALS: BP 163/59; PULSE 77; RESP 18; TEMP 36.8; O2SAT 100; BMI 33.2
== END ==
PROVIDERS: PCP Family Medicine; Visit Provider Podiatrist
DX: L97.512 Non-pressure chronic ulcer of other part of right foot with fat layer exposed (principal); E11.42 Type 2 diabetes mellitus with diabetic polyneuropathy; I73.9 Peripheral vascular disease, unspecified
CPT/HCPCS: 96365; G0463

== ENCOUNTER → 2018-01-15 11:56 | Outpatient (CLI) | payer MEDICARE, MEDICAID, SELFPAY ==
[2018-01-15 12:40] VITALS: BP 115/46; PULSE 56; RESP 18; TEMP 36.6; O2SAT 98
[2018-01-15 12:57] VITALS: BP 126/63; PULSE 63; RESP 18; TEMP 36.9; O2SAT 98; BMI 31.2
== END ==
PROVIDERS: PCP Family Medicine; Visit Provider Podiatrist
DX: L97.512 Non-pressure chronic ulcer of other part of right foot with fat layer exposed (principal); E11.42 Type 2 diabetes mellitus with diabetic polyneuropathy; I73.9 Peripheral vascular disease, unspecified
CPT/HCPCS: 96365; G0463

== ENCOUNTER 2018-01-16 12:13 | Outpatient (CLI) | payer MEDICARE, MEDICAID, SELFPAY ==
[2018-01-16 12:30] VITALS: BP 107/60; PULSE 78; RESP 18; TEMP 36.6; O2SAT 98
[2018-01-16 13:00] VITALS: BP 108/69; PULSE 87; RESP 18
[2018-01-16 13:30] VITALS: BP 127/70; PULSE 70; RESP 18
== END 2018-01-16 13:30 | disposition home or self-care (01) ==
LOC: INF 12:13
PROVIDERS: PCP Family Medicine; Visit Provider Podiatrist
DX: L97.512 Non-pressure chronic ulcer of other part of right foot with fat layer exposed (principal); E11.42 Type 2 diabetes mellitus with diabetic polyneuropathy; I73.9 Peripheral vascular disease, unspecified
CPT/HCPCS: 96365

== ENCOUNTER 2018-01-17 11:36 | Outpatient (CLI) | payer MEDICARE, MEDICAID, SELFPAY ==
[2018-01-17 11:25] VITALS: BP 115/77; PULSE 74; RESP 18; TEMP 36.6; O2SAT 97
[2018-01-17 11:55] VITALS: BP 112/76; PULSE 71; RESP 18; O2SAT 96
[2018-01-17 12:20] VITALS: BP 114/72; PULSE 75; RESP 18; O2SAT 96
== END 2018-01-17 12:30 | disposition home or self-care (01) ==
LOC: INF 11:36
PROVIDERS: PCP Family Medicine; Visit Provider Podiatrist
DX: L97.512 Non-pressure chronic ulcer of other part of right foot with fat layer exposed (principal); E11.42 Type 2 diabetes mellitus with diabetic polyneuropathy; I73.9 Peripheral vascular disease, unspecified
CPT/HCPCS: 96365

== ENCOUNTER 2018-01-18 12:46 | Outpatient (CLI) | payer MEDICARE, MEDICAID, SELFPAY ==
[2018-01-18 13:04] VITALS: BMI 31.8
[2018-01-18 13:36] LABS: Anion Gap 9.8 mEq/L (5-15); Blood Urea Nitrogen 19 mg/dL (7-18); Calcium 9.1 mg/dL (8.5-10.1); Carbon Dioxide 28 mmol/L (21.0-32.0); Chloride 102 mmol/L (98-107); Creatinine Clearance Estimated 78 mL/min (0-300); Creatinine,Serum 1.01 mg/dL (0.55-1.02); Estimated Glomerular Filt Rate 58 ml/min (>60); GFR (African American) 70 ML/MIN (>60); Glucose 126 mg/dL (74-106); Potassium 3.8 mmoL/L (3.5-5.1); Sodium 136 mmol/L (136-145)
[2018-01-18 13:45] VITALS: BP 111/59; PULSE 67; RESP 18; TEMP 36.7; O2SAT 98
[2018-01-18 14:15] VITALS: BP 111/73; PULSE 74; RESP 18; O2SAT 97
[2018-01-18 14:25] VITALS: BP 109/69; PULSE 72; RESP 18; O2SAT 97
== END 2018-01-18 14:30 | disposition home or self-care (01) ==
LOC: INF 12:47
PROVIDERS: PCP Family Medicine; Visit Provider Podiatrist
DX: L97.512 Non-pressure chronic ulcer of other part of right foot with fat layer exposed (principal); E11.42 Type 2 diabetes mellitus with diabetic polyneuropathy; I73.9 Peripheral vascular disease, unspecified
CPT/HCPCS: 80048; 96365

== ENCOUNTER → 2018-03-30 12:26 | Outpatient (CLI) | payer MEDICARE, MEDICAID, SELFPAY ==
--- NOTE | 2018-03-30 12:49 | XR_ITS ---
XR foot wt bearing RT 3V Ordering Physician: Tabatha Calloway DPM Patient Age: 52 years: Female HISTORY: ITS.REASON: toe pain TECHNIQUE: 3 views right foot weightbearing COMPARISON :December 2016 right foot and September 13, 2017 right foot FINDINGS There is been old amputation of the fourth toe at the metatarsophalangeal joint. This area appears stable Flexion deformity left Third Toe noted with what appears to be soft tissue ulcer at tip & diffuse soft tissue swelling third toe.. On the lateral view there is irregular calcification inferior to its tip distal phalanx. Although the frontal projections provided Limited visualization of the distal phalanx, on the oblique and the lateral view There appears to be destructive changes at the tip of distal phalanx. Destructive osseous changes involve distal tuft and tip of the distal phalanx third toe with estimated irregular calcifications inferior to it on the lateral view. Findings support osteomyelitis distal phalanx third toe. If desire more optimal visualization at the tip of distal phalanx, oblique lateral coned-down views may be of benefit There is some mild soft tissue swelling throughout the remainder forefoot and in addition to the third toe. Otherwise metatarsals appear stable and intact. Tarsals unremarkable. .. . Again the stable accessory ossicles medial to the navicular & distal talus appears similar to the August study.. Plantar calcaneal spur with Mild bony proliferation at the plantar calcaneal spur region which is been present at least since December 2016 IMPRESSION: ... . Probable soft tissue ulcer tip of third toe. With Diffuse swelling/cellulitis third toe Destructive changes at the tip of the distal phalanx third toe compatible with osteomyelitis involving the tuft/distal phalanx third toe right foot Clinical Correlation required to fully confirm (Lateral coned-down oblique views could further visualize the tip the third toe if desired greater detail)
[2018-03-30 13:48] LABS: Hemoglobin A1C 7.9 % (0.0-7.0)
[2018-03-30 13:55] LABS: Alanine Aminotransferase 37 U/L (12-78); Albumin Level 3.6 gm/dL (3.4-5.0); Albumin/Globulin Ratio 0.9 (1.1-1.8); Alkaline Phosphatase 81 U/L (46-116); Anion Gap 15.9 mEq/L (5-15); Aspartate Amino Transferase 21 U/L (15-37); Bilirubin,Total 0.5 mg/dL (0.2-1.0); Blood Urea Nitrogen 16 mg/dL (7-18); Calcium 8.7 mg/dL (8.5-10.1); Carbon Dioxide 24 mmol/L (21.0-32.0); Chloride 102 mmol/L (98-107); Creatinine,Serum 1.03 mg/dL (0.55-1.02); Estimated Glomerular Filt Rate 57 ml/min (>60); GFR (African American) 69 ML/MIN (>60); Globulin 4.1 gm/dl (1.3-3.2); Glucose 194 mg/dL (74-106); Potassium 4.9 mmoL/L (3.5-5.1); Sodium 137 mmol/L (136-145); Total Protein,Serum 7.7 gm/dL (6.4-8.2)
[2018-03-30 13:56] LABS: C-Reactive Protein < 0.2 mg/L (0.0-0.9)
[2018-03-30 13:57] LABS: Magnesium 1.9 mg/dL (1.4-2.2); Phosphorous 3.5 mg/dL (2.4-4.9)
--- NOTE | 2018-03-30 14:15 | AS_ITS ---
Arterial Exam Indications: 707.15 Ulcer of other part of foot. Patient has an ulcer on the right third toe. Patient has a left leg amputation from the knee down. Scanning done today to rule out an RLE arterial occlusion or clot. IMPRESSIONS 1. No evidence of arterial occlusion involving the right lower extremity 2. 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 Risk factors: Diabetes mellitus. Obese. Renal disease. Right lower extremity arterial duplex. Duplex scan. Patient status: Outpatient. CRITICAL FINDINGS - Reported to: Dr. NUGENT - Read back and verified. - 03/30/18 - 15:00 - No arterial clot seen in RLE Tables: Arterial flow: + +---------+---------+ Location V sys V ed + +---------+---------+ Right common femoral 134cm/s 16.5cm/s + +---------+---------+ Right deep femoral - proximal -91.1cm/s -13.4cm/s + +---------+---------+ Right femoral - proximal 91.1cm/s 16.5cm/s + +---------+---------+ Right femoral - mid -258cm/s -20.1cm/s + +---------+---------+ Right femoral - distal -92.3cm/s -14.7cm/s + +---------+---------+ Right popliteal - proximal 62.9cm/s 13.3cm/s + +---------+---------+ Right popliteal - distal -69.8cm/s --------- + +---------+---------+ Right posterior tibial - proximal 46.1cm/s --------- + +---------+---------+ Right posterior tibial - mid 32.8cm/s --------- + +---------+---------+ Right posterior tibial - distal 102cm/s 20.3cm/s + +---------+---------+ CONOR and Stress table: +--------+ Stage +--------+ Baseline +--------+ (Report amended ) Electronically signed by: Gildardo Jean [id number]
[2018-03-30 15:13] LABS: Basophils % 0.5 % (0.1-2.0); Eosinophils # 0.4 K/mm3 (0.0-0.4); Eosinophils % 5.8 % (0.1-12.0); Hematocrit 41.5 % (37.0-47.0); Hemoglobin 12.8 g/dL (12.2-16.2); Lymphocytes # 2.2 K/mm3 (0.7-4.5); Lymphocytes % 29.2 K/mm3 (10-50); Mean Corpuscular HGB Conc 30.8 g/dL (31.8-35.4); Mean Corpuscular Hemoglobin 26.2 pg (27.0-31.2); Mean Platelet Volume 8.2 fl (7.4-10.4); Monocytes # 0.4 K/mm3 (0.1-1.0); Monocytes % 5.7 % (1.7-9.3); Neutrophils # 4.3 K/mm3 (1.8-7.8); Neutrophils % 58.7 % (37.0-80.0); Platelet Count 302 K/mm3 (142-424); Red Blood Count 4.89 M/mm3 (4.20-5.40); Red Cell Distribution Width 17.2 % (11.5-17.5); White Blood Count 7.4 K/mm3 (4.8-10.8)
[2018-03-30 16:43] LABS: Erythrocyte Sedimentation Rate 38 mm/hr (0-20)
[2018-03-31 10:05] LABS: Vitamin D 25 Hydroxy 35.1 ng/mL (30.0-100.0)
[2018-03-31 19:17] LABS: Calcium, Ionized 5.1 mg/dL (4.5-5.6); Parathyroid Hormone Intact 27 pg/mL (15-65)
== END ==
PROVIDERS: Internal Medicine Nephrology; Podiatrist; PCP Family Medicine; Visit Provider Internal Medicine Cardiovascular Disease
DX: E11.9 Type 2 diabetes mellitus without complications (principal); L97.512 Non-pressure chronic ulcer of other part of right foot with fat layer exposed; Z51.89 Encounter for other specified aftercare; E08.621 Diabetes mellitus due to underlying condition with foot ulcer; L97.519 Non-pressure chronic ulcer of other part of right foot with unspecified severity; N17.9 Acute kidney failure, unspecified
CPT/HCPCS: 36415; 73630; 80053; 82330; 82652; 83036; 83735; 83970; 84100; 85025; 85651; 86140; 93926

== ENCOUNTER → 2018-03-31 13:07 | Outpatient (CLI) | payer MEDICAID, SELFPAY ==
[2018-03-31 13:21] LABS: Microscopic, Urine URINE MICROSCOPIC (MICROSCOPIC)
[2018-03-31 14:29] LABS: Appearance,Urine CLEAR (Clear); Bilirubin,Urine Negative (Negative); Blood, Urine Negative (Negative); Color,Urine YELLOW (Yellow); Glucose,Urine (UA) Negative (Negative); Ketones,Urine Negative (Negative); Leukocyte Esterase,Urine Negative (Negative); Nitrate,Urine Negative (Negative); Protein,Urine TRACE (Negative); Specific Gravity, Urine 1.015 (1.005-1.030); Urobilinogen,Urine 0.2 EU/dl (0.2)
[2018-03-31 14:30] LABS: Creatinine,Urine Random 74 mg/dL (20-320); Total Protein,Urine Random 36.1 mg/dL (0.0-11.9)
[2018-03-31 15:13] LABS: Bacteria,Urine Trace /lpf; RBC,Urine Occasional #/hpf (0-3); WBC,Urine Occasional #/hpf (0-3)
== END ==
PROVIDERS: PCP Family Medicine; Visit Provider Internal Medicine Nephrology
DX: N18.3 Chronic kidney disease, stage 3 (moderate) (principal)
CPT/HCPCS: 81001; 82570; 84155

== ENCOUNTER → 2018-04-03 14:34 | Outpatient (POV) | payer MEDICAID, SELFPAY | PROVIDERS: PCP Family Medicine; Visit Provider Internal Medicine Nephrology | DX: Z00.00 Encounter for general adult medical examination without abnormal findings (principal) ==

== ENCOUNTER 2018-04-14 12:26 | Inpatient (IN) ==
--- NOTE | 2018-04-14 13:10 | History & Physical Report ---
*Admission Date: 04/14/18 <Irina Gil 04/14/18 13:10> *Chief complaint: right 3rd toe infected <Irina Gil 04/14/18 14:46> *History of present illness: Ms. Nieto is a 52yo female with a previous left BKA who has had a wound on her right 3rd toe since November. Her mother states last night the tip of the toe turned black and she began having erythema extending from the toe up into her foot. She developed a fever of 102 and had chills last night. She presented to the office of A today for evaluation and was admitted d/t an ischemic toe. She will be started on a heparin drip. She is scheduled to have a stent placed in the leg by Randy on Tuesday to supply better blood flow to the foot. <Irina Gil 04/14/18 14:46> [facility] History Medical History: Reports:: Cancer, Coronary Artery Disease, Cerebrovascular Accident, Diabetes Mellitus Type 2, Gall Bladder Disease, Hyperlipidemia, Hypertension, MRSA, Myocardial Infarction, Peripheral Vascular Disease, Renal Disease, Renal Insufficiency, Transient Ischemic Attacks (TIA), Urinary Tract Infection Denies:: Asthma, Chronic Obstructive Pulmonary Disease (COPD), Diabetes Mellitus Type 1, Internal Pacemaker <Irina Gil 04/14/18 13:10> Other Medical History: Reports: Chemotherapy <Irina Gil 04/14/18 13:10> Laterality Cases: Right: Mastectomy, Other, Bilateral: Carpal Tunnel Release <Irina Gil 04/14/18 13:10> Other Surgeries: Yes: Cancer Surgery, Cardiac Catheterization, Cardiac Surgery, Cholecystectomy, , Open Heart Surgery, Tubal Ligation, Other. No: Pacemaker <Irina Gil 04/14/18 13:10> Amputation: Yes (Left BKA 06/23/14; 4th toe right foot 2016) <Irina Gil 04/14/18 13:10> - *Social History Smoking Status: Never smoker <Irina Gil 04/14/18 13:10> # Packs/Day (cigarettes): 0 <Irina Gil 04/14/18 13:10> #Yrs smoked (if former smoker): 0 <Irina Gil 04/14/18 13:10> Alcohol Intake: never <Irina Gil 04/14/18 13:10> Alcohol Intake Frequency:: other [facility] 04/14/[facility] 13:10> Substance Use Type: denies use <Irina Gil 04/14/18 13:10> Occupational Status: unemployed, disabled <[facility] 04/14/18 13:10> Household Members: family <Irina Gil 04/14/18 13:10> *Family Hx:: Cancer, Diabetes, Heart Attack, Hyperlipidemia, Hypertension <[facility] 04/14/18 13:10> Review of Systems - Constitutional Reports chills, Reports fever(s), Reports weakness <Seferino Gila 04/14/18 13:22> - Eyes Denies blurry vision, Denies double vision <LouiseIrina 04/14/18 13:22> - ENT Denies nasal congestion, Denies sore throat <PauladrianIrina 04/14/18 13:22> - *Cardiovascular Denies chest pain, Denies rapid, pounding, or irregular heartbeat <LouiseIrina 04/14/18 13:22> - *Respiratory Reports cough, Denies chest congestion, Denies shortness of breath <PauladrianIrina 04/14/18 13:22> - *Gastrointestinal Denies abdominal pain, Denies loose stools, Denies nausea, Denies vomiting <LouiseIrina 04/14/18 13:22> - *Genitourinary Denies difficulty urinating, Denies painful urination <PauladrianIrina - 04/14/18 13:22> - *Musculoskeletal Reports joint pain (right foot) <PauladrianIrina 04/14/18 13:22> - *Neurologic Reports weakness, Denies headache(s), Denies dizziness <PauladrianIrina 04/14/18 13:22> Meds Home Medications Medication Instructions Recorded Confirmed Type amiloride 5 mg tablet 10 mg PO DAILY 09/22/17 04/14/18 History aspirin 25 mg-dipyridamole 200 mg 1 cap PO BID 09/22/17 04/14/18 History capsule,ext.release 12 hr multiphase baclofen 10 mg tablet 10 mg PO DAILY 04/05/18 10/26/18 History clopidogrel 75 mg tablet 75 mg PO DAILY 09/22/17 04/14/18 History glimepiride 2 mg tablet 2 mg PO QAM 09/22/17 04/14/18 History linagliptin 2.5 mg-metformin 1,000 1 tab PO BID 09/22/17 04/14/18 History mg tablet metolazone 5 mg tablet 5 mg PO DAILY 09/22/17 04/14/18 History Loratadine [Allergy] 10 mg PO DAILY 11/19/17 04/14/18 History Baclofen [Lioresal 10mg tablet] 20 mg PO HS 11/20/17 04/14/18 History Citalopram Hydrobromide [Celexa 20 mg PO DAILY 11/20/17 04/14/18 History 20mg Tablet] Insulin Lispro [Humalog Kwikpen 0 unit SQ AC 11/20/17 04/14/18 History U-100] Warfarin Sodium 7.5 mg PO DIRECTED 11/20/17 04/14/18 History Furosemide [Lasix 80mg tablet] 40 mg PO DAILY 12/07/17 04/14/18 History Baclofen 10 mg PO DAILY 04/14/18 04/14/18 History Donepezil HCl [Aricept 5mg] 5 mg PO HS 04/14/18 04/14/18 History Insulin Detemir [Levemir 45 unit SQ DAILY 04/14/18 04/14/18 History 100units/mL 3mL flexpen] Potassium Chloride 60 meq PO TID 04/14/18 04/14/18 History Rosuvastatin Calcium [Crestor] 20 mg PO DAILY 04/14/18 04/14/18 History Spironolactone [Aldactone 25mg 25 mg PO DAILY 04/14/18 04/14/18 History Tab] <[place],Shawn - 04/14/18 15:35> Allergies Allergy/AdvReac Type Severity Reaction Status Date / Time azithromycin Allergy Intermediate S-DIFF. Verified 04/11/18 11:42 BREATHING daptomycin [DAPTOMYCIN] Allergy Intermediate I-RASH/ITCH Verified 04/11/18 11:42 ING levofloxacin Allergy Intermediate I-RASH Verified 04/11/18 11:42 Penicillins Allergy Intermediate I-HIVES Verified 04/11/18 11:42 <Artie,Shawn - 04/14/18 15:35> Exam Vital signs and Labs for Last 24 Hours: Temp Pulse Resp BP Pulse Ox 98.1 F 88 18 140/77 95 04/14/18 12:45 04/14/18 12:45 04/14/18 12:45 04/14/18 12:45 04/14/18 12:45 Laboratory Results - last 24 hr 04/14/18 12:55: WBC 7.3, RBC 4.34, Hgb 11.5 L, Hct 36.5 L, MCV 84.0, MCH 26.5 L, MCHC 31.5 L, RDW 17.6 H, Plt Count 195, MPV 7.7, Neut % (Auto) 62.0, Lymph % (Auto) 29.2, [place] % (Auto) 7.0, Eos % (Auto) 1.5, Baso % (Auto) 0.4, Neut # (Auto) 4.5, Lymph # (Auto) 2.1, [place] # (Auto) 0.5, Eos # (Auto) 0.1, Baso # (Auto) 0.0 04/14/18 12:55: Sodium 136, Potassium 4.7, Chloride 99, Carbon Dioxide 29, Anion Gap 12.7, BUN 17, Creatinine 1.18 H, Estimated Creat Clear 72, Estimated GFR 48 L, Est GFR ( Amer) 59, Glucose 264 H, Calcium 9.4, Total Bilirubin 0.6, AST 25, ALT 37, Alkaline Phosphatase 73, Total Protein 8.3 H, Albumin 3.2 L, Globulin 5.1 H, Albumin/Globulin Ratio 0.6 L 04/14/18 12:55: Lactate 2.8 H <Artie,Shawn - 04/14/18 15:35> Temp Pulse Resp BP Pulse Ox 98.1 F 88 18 140/77 95 04/14/18 12:45 04/14/18 12:45 04/14/18 12:45 04/14/18 12:45 04/14/18 12:45 <Irina Gil - 04/14/18 13:22> I & O for Last 24 hours: Intake & Output 04/12/18 04/13/18 04/14/18 04/15/18 11:59 11:59 11:59 11:59 Weight 175 lb 14.862 oz <Shawn Alva - 04/14/18 15:35> Intake & Output 04/12/18 04/13/18 04/14/18 04/15/18 11:59 11:59 11:59 11:59 Weight 175 lb 7 oz <Irina Gil 04/14/18 13:10> - Constitutional no acute distress <Irina Gil 04/14/18 13:22> - *Routine HEENT Exam Head: Present: normocephalic <Irina Gil 04/14/18 13:22> Eye: Present: EOMI, PERRL <Irina Gil 04/14/18 13:22> ENT: Present: mucous membranes moist <Irina Gil 04/14/18 13:22> - *Routine Neck Exam Present: supple. Absent: lymphadenopathy <Irina Gil 04/14/18 13:22> - *Routine Respiratory Exam Present: CTA bilaterally <Irina Gil 04/14/18 13:22> - *Routine Cardiovascular Exam Present: RRR <Irina Gil 04/14/18 13:22> - *Routine Abdominal Exam Present: soft, normoactive bowel sounds. Absent: tenderness <Irina Gil 04/14/18 13:22> - *Routine Extremities Exam Present: edema (trace pretibial edema of the RLE, left BKA) <Irina Gil 04/14/18 13:22> - *Routine Skin Exam Present: intact. Absent: rash <Irina Gil 04/14/18 13:22> Comments: right 3rd toe is black at the tip of the toe with erythema extending down the toe and onto the dorsum of the foot, warm to the touch and tender <Irina Gil 04/14/18 13:22> - *Routine Neurological Exam Present: alert, oriented X3 <Irina Gil 04/14/18 13:22> Assessment and Plan (1) Ischemic foot Current visit: Yes Status: Acute Category: Medical Code(s): I99.8 - Other disorder of circulatory system (2) Fever Current visit: Yes Status: Acute Category: Medical Code(s): R50.9 - Fever, unspecified (3) Coronary arteriosclerosis Current visit: No Status: Chronic Category: Medical Code(s): I25.10 - Atherosclerotic heart disease of [place] coronary artery without angina pectoris (4) Diabetes mellitus Current visit: No Status: Chronic Qualifiers: Diabetes mellitus type: type 2 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 mellitus automation test engineer insulin use: without automation test engineer use Diabetes mellitus complication status: with neurologic complications Diabetes mellitus complication detail: with polyneuropathy Qualified Code(s): E11.42 - Type 2 diabetes mellitus with diabetic polyneuropathy Category: Medical Code(s): E11.9 - Type 2 diabetes mellitus without complications (5) 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 Current visit: No Status: Chronic Category: Medical Code(s): E08.621 - Diabetes mellitus due to underlying condition with foot ulcer; L97.519 - Non-pressure chronic ulcer of other part of right foot with unspecified severity (6) History of CVA (cerebrovascular accident) Current visit: No Status: Chronic Category: Medical Code(s): Z86.73 - Personal history of transient ischemic attack (TIA), and cerebral infarction without residual deficits (7) Hyperlipidemia Current visit: No Status: Chronic Qualifiers: Hyperlipidemia type: unspecified Qualified Code(s): E78.5 - Hyperlipidemia, unspecified Category: Medical Code(s): E78.5 - Hyperlipidemia, unspecified (8) Hypertensive heart disease without heart failure Current visit: No Status: Chronic Category: Medical Code(s): I11.9 - Hypertensive heart disease without heart failure (9) Left spastic hemiparesis Current visit: No Status: Chronic Category: Medical Code(s): G81.14 - Spastic hemiplegia affecting left nondominant side (10) halfway 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 Current visit: No Status: Chronic Category: Medical Code(s): Z79.01 - instrumentation technician (current) use of 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 (11) Peripheral arterial occlusive disease Current visit: No Status: Chronic Category: Medical Code(s): I77.9 - Disorder of arteries and arterioles, unspecified <Shawn Alva - 04/14/18 15:35> (1) Ischemic foot Current visit: Yes Status: Acute Category: Medical Code(s): I99.8 - Other disorder of circulatory system (2) Fever Current visit: Yes Status: Acute Category: Medical Code(s): R50.9 - Fever, unspecified (3) Coronary arteriosclerosis Current visit: No Status: Chronic Category: Medical Code(s): I25.10 - Atherosclerotic heart disease of [place] coronary artery without angina pectoris (4) Diabetes mellitus Current visit: No Status: Chronic Qualifiers: Diabetes mellitus type: type 2 Diabetes mellitus alf insulin use: without alf use Diabetes mellitus complication status: with neurologic complications Diabetes mellitus complication detail: with polyneuropathy Qualified Code(s): E11.42 - Type 2 diabetes mellitus with diabetic polyneuropathy Category: Medical Code(s): E11.9 - Type 2 diabetes mellitus without complications (5) 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 Current visit: No Status: Chronic Category: Medical Code(s): E08.621 - Diabetes mellitus due to underlying condition with foot ulcer; L97.519 - Non-pressure chronic ulcer of other part of right foot with unspecified severity (6) History of CVA (cerebrovascular accident) Current visit: No Status: Chronic Category: Medical Code(s): Z86.73 - Personal history of transient ischemic attack (TIA), and cerebral infarction without residual deficits (7) Hyperlipidemia Current visit: No Status: Chronic Qualifiers: Hyperlipidemia type: unspecified Qualified Code(s): E78.5 - Hyperlipidemia, unspecified Category: Medical Code(s): E78.5 - Hyperlipidemia, unspecified (8) Hypertensive heart disease without heart failure Current visit: No Status: Chronic Category: Medical Code(s): I11.9 - Hypertensive heart disease without heart failure (9) Left spastic hemiparesis Current visit: No Status: Chronic Category: Medical Code(s): G81.14 - Spastic hemiplegia affecting left nondominant side (10) halfway 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 Current visit: No Status: Chronic Category: Medical Code(s): Z79.01 - instrumentation technician (current) use of 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 (11) Peripheral arterial occlusive disease Current visit: No Status: Chronic Category: Medical Code(s): I77.9 - Disorder of arteries and arterioles, unspecified <Irina Gil - 04/14/18 14:45> - Assessment and plan all Dx Assessment and Plan for all problems:: Saw patient, agree with above note. <Shawn Alva - 04/14/18 15:35> Pt will be started on a heparin drip and pain control. A CXR and labs along with blood cultures have been ordered. <Irina Gil - 04/14/18 14:46>
[2018-04-14 13:16] LABS: Basophils % 0.4 % (0.1-2.0); Eosinophils # 0.1 K/mm3 (0.0-0.4); Eosinophils % 1.5 % (0.1-12.0); Hematocrit 36.5 % (37.0-47.0); Hemoglobin 11.5 g/dL (12.2-16.2); Lymphocytes # 2.1 K/mm3 (0.7-4.5); Lymphocytes % 29.2 K/mm3 (10-50); Mean Corpuscular HGB Conc 31.5 g/dL (31.8-35.4); Mean Corpuscular Hemoglobin 26.5 pg (27.0-31.2); Mean Platelet Volume 7.7 fl (7.4-10.4); Monocytes # 0.5 K/mm3 (0.1-1.0); Neutrophils # 4.5 K/mm3 (1.8-7.8); Platelet Count 195 K/mm3 (142-424); Red Blood Count 4.34 M/mm3 (4.20-5.40); Red Cell Distribution Width 17.6 % (11.5-17.5); White Blood Count 7.3 K/mm3 (4.8-10.8)
--- NOTE | 2018-04-14 13:24 | Consult Report ---
History of Present Illness Consult date: 04/14/18 Requesting physician: Shawn Alva Chief complaint: Ischemic toe Additional Medical History:: 1. CAD A. 5 vessel CABG, about 2008, [facility] in [place]. Wound dehiscense and pseudomonas infection with sepsis. B. SD prior to CABG. C. Cardiac cath, 10/2015, Patent JACOBSEN to LAD, single vessel disease of 2.5 mm PDA, normal LVEF with mildly elevated LVEDP. Pt was treated medically so she could have left breast lumpectomy with plans for more definitive therapy thereafter. D. Claudio myoview, 11/2016, Normal LVEF with ischemia in the anterior apical and anterior lateral telles. Medical therapy recommended due to similar results 10/2015 with cath noted above. 2. Diabetes, treated for > 20 yrs 3. HTN 4. CVA, melissa-operatively in 2008, left side affected. 5. PAD A. Left BKA, 06/2015 B. Right SFA bare metal stenting, 10/2016 C. right ischemic 3rd toe, 03/2018 6. History of DVT's, on chronic Coumadin therapy. 7. History of right breast cancer, s/p surgery and breast reconstruction with implant that was later removed. A. Left breast mass removed, 11/2015 8. CKD, stage 3 A. Cr 1.2 with GFR 48 in 2017 History of present illness: 52-year-old white female with extensive history as noted above was seen in the office on 04/11/2018 for abnormal CONOR. Patient has known left BKA. Her right femoral artery shows greater than 60% occlusion. Plans were made to proceed with right lower extremity runoff today but had to be postponed until Tuesday. Patient was seen in her primary care office today for fever last evening with ischemic changes to the right third toe and it was felt she needed to be admitted for heparin drip until procedure can be performed on Tuesday. She denies any chest pain, pressure or tightness. Appetite is good. She denies pain in the toe at this time. [facility] History Medical History: Reports:: Cancer, Coronary Artery Disease, Cerebrovascular Accident, Diabetes Mellitus Type 2, Gall Bladder Disease, Hyperlipidemia, Hypertension, MRSA, Myocardial Infarction, Peripheral Vascular Disease, Renal Disease, Renal Insufficiency, Transient Ischemic Attacks (TIA), Urinary Tract Infection Denies:: Asthma, Chronic Obstructive Pulmonary Disease (COPD), Diabetes Mellitus Type 1, Internal Pacemaker Other Medical History: Reports: Chemotherapy Laterality Cases: Right: Mastectomy, Other, Bilateral: Carpal Tunnel Release Other Surgeries: Yes: Cancer Surgery, Cardiac Catheterization, Cardiac Surgery, Cholecystectomy, , Open Heart Surgery, Tubal Ligation, Other. No: Pacemaker Amputation: Yes (Left BKA 06/23/14; 4th toe right foot 2016) - *Social History Smoking Status: Never smoker # Packs/Day (cigarettes): 0 #Yrs smoked (if former smoker): 0 Alcohol Intake: never Alcohol Intake Frequency:: other Substance Use Type: denies use Occupational Status: unemployed, disabled Household Members: family *Family Hx:: Cancer, Diabetes, Heart Attack, Hyperlipidemia, Hypertension Meds Home Medications Medication Instructions Recorded Confirmed Type amiloride 5 mg tablet 10 mg PO DAILY 09/22/17 04/11/18 History aspirin 25 mg-dipyridamole 200 mg 1 cap PO BID 09/22/17 04/11/18 History capsule,ext.release 12 hr multiphase baclofen 10 mg tablet 10 mg PO DAILY 09/22/17 04/11/18 History clopidogrel 75 mg tablet 75 mg PO DAILY 09/22/17 04/11/18 History glimepiride 2 mg tablet 2 mg PO QAM 09/22/17 04/11/18 History linagliptin 2.5 mg-metformin 1,000 1 tab PO BID 09/22/17 04/11/18 History mg tablet metolazone 5 mg tablet 5 mg PO DAILY 09/22/17 04/11/18 History metoprolol tartrate 25 mg tablet 12.5 mg PO BID 09/22/17 04/11/18 History rosuvastatin 10 mg tablet 10 mg PO DAILY 09/22/17 04/11/18 History spironolactone 25 mg tablet 25 mg PO DAILY 09/22/17 04/11/18 History warfarin 5 mg tablet 5 mg PO SUTUWETHFRSA 09/22/17 04/11/18 History Loratadine [Allergy] 10 mg PO DAILY 11/19/17 04/11/18 History Potassium Chloride [Pot Chlor 20 40 meq PO TID 11/19/17 04/11/18 History mEq Tab] Baclofen [Lioresal 10mg tablet] 20 mg PO HS 11/20/17 04/11/18 History Citalopram Hydrobromide [Celexa 20 mg PO DAILY 11/20/17 04/11/18 History 20mg Tablet] Donepezil HCl [Aricept] 5 mg PO DAILY 11/20/17 04/11/18 History Insulin Glargine,Hum.rec.anlog 60 units SQ HS 11/20/17 04/11/18 History [Lantus Insulin 100units/mL 10mL vial] Insulin Lispro [Humalog Kwikpen 0 unit SQ AC 11/20/17 04/11/18 History U-100] Warfarin Sodium 7.5 mg PO DIRECTED 11/20/17 04/11/18 History Furosemide [Lasix 80mg tab] 80 mg PO DIRECTED 12/07/17 04/11/18 History Furosemide [Lasix 80mg tablet] 40 mg PO DAILY 12/07/17 04/11/18 History Allergies Allergy/AdvReac Type Severity Reaction Status Date / Time azithromycin Allergy Intermediate S-DIFF. Verified 04/11/18 11:42 BREATHING daptomycin [DAPTOMYCIN] Allergy Intermediate I-RASH/ITCH Verified 04/11/18 11:42 ING levofloxacin Allergy Intermediate I-RASH Verified 04/11/18 11:42 Penicillins Allergy Intermediate I-HIVES Verified 04/11/18 11:42 Review of Systems - *Cardiovascular Reports shortness of breath with activity, Denies chest pain - *Respiratory Reports shortness of breath with activity - *Gastrointestinal Denies loose stools - *Genitourinary Denies blood in urine - *Musculoskeletal Reports joint swelling - *Neurologic Reports weakness, Denies headache(s), Denies dizziness Exam Vital signs and Labs for Last 24 Hours: Temp Pulse Resp BP Pulse Ox 98.1 F 88 18 140/77 95 04/14/18 12:45 04/14/18 12:45 04/14/18 12:45 04/14/18 12:45 04/14/18 12:45 Laboratory Results - last 24 hr 04/14/18 12:55: WBC 7.3, RBC 4.34, Hgb 11.5 L, Hct 36.5 L, MCV 84.0, MCH 26.5 L, MCHC 31.5 L, RDW 17.6 H, Plt Count 195, MPV 7.7, Neut % (Auto) 62.0, Lymph % (Auto) 29.2, [place] % (Auto) 7.0, Eos % (Auto) 1.5, Baso % (Auto) 0.4, Neut # (Auto) 4.5, Lymph # (Auto) 2.1, [place] # (Auto) 0.5, Eos # (Auto) 0.1, Baso # (Auto) 0.0 I & O for Last 24 hours: Intake & Output 04/12/18 04/13/18 04/14/18 04/15/18 11:59 11:59 11:59 11:59 Weight 175 lb 7 oz - *Routine Neck Exam Present: supple. Absent: JVD, carotid bruit - *Routine Respiratory Exam Present: CTA bilaterally. Absent: accessory muscle use, rales, rhonchi, wheezes - *Routine Cardiovascular Exam Present: RRR, murmur. Absent: gallop, rubs - *Routine Abdominal Exam Present: soft. Absent: tenderness, distended, guarding - *Routine Extremities Exam Absent: cyanosis, edema, calf tenderness Comments: Left BKA. Right foot with some edema and erythema starting in the third great toe and extending care home up the dorsum of the foot. The third great toe tip is black. There is a small area of bruising noted on the lateral portion of the dorsum of the foot. It is about 2-3 mm in size. Patient's fourth toe on the right foot has been previously amputated - *Routine Neurological Exam Present: alert, oriented X3, moving all extremities Assessment and Plan (1) Fever Current visit: Yes Status: Acute Category: Medical Code(s): R50.9 - Fever, unspecified (2) Ischemic foot Current visit: Yes Status: Acute Category: Medical Code(s): I99.8 - Other disorder of circulatory system (3) Abnormal ankle brachial index (CONOR) Current visit: No Status: Acute Category: Medical Code(s): R68.89 - Other general symptoms and signs (4) Coronary arteriosclerosis Current visit: No Status: Chronic Category: Medical Code(s): I25.10 - Atherosclerotic heart disease of [place] coronary artery without angina pectoris (5) Diabetes mellitus Current visit: No Status: Chronic Qualifiers: Diabetes mellitus type: type 2 Diabetes mellitus retirement insulin use: without 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 project manager use Diabetes mellitus complication status: with neurologic complications Diabetes mellitus complication detail: with polyneuropathy Qualified Code(s): E11.42 - Type 2 diabetes mellitus with diabetic polyneuropathy Category: Medical Code(s): E11.9 - Type 2 diabetes mellitus without complications (6) Hemiparesis affecting left side as late effect of cerebrovascular accident Current visit: No Status: Chronic Category: Medical Code(s): I69.354 - H emiplegia and hemiparesis following cerebral infarction affecting left non- dominant side (7) History of CVA (cerebrovascular accident) Current visit: No Status: Chronic Category: Medical Code(s): Z86.73 - Personal history of transient ischemic attack (TIA), and cerebral infarction without residual deficits (8) Hyperlipidemia Current visit: No Status: Chronic Qualifiers: Hyperlipidemia type: unspecified Qualified Code(s): E78.5 - Hyperlipidemia, unspecified Category: Medical Code(s): E78.5 - Hyperlipidemia, unspecified (9) Peripheral arterial occlusive disease Current visit: No Status: Chronic Category: Medical Code(s): I77.9 - Disorder of arteries and arterioles, unspecified - Assessment and plan all Dx Assessment and Plan for all problems:: 1. Heparin drip 2. Proceed with right lower extremity runoff with possible intervention of the right femoral artery on Tuesday. 3. Continue home medications with the exception of Coumadin.
[2018-04-14 13:28] LABS: Albumin Level 3.2 gm/dL (3.4-5.0); Albumin/Globulin Ratio 0.6 (1.1-1.8); Anion Gap 12.7 mEq/L (5-15); Bilirubin,Total 0.6 mg/dL (0.2-1.0); Calcium 9.4 mg/dL (8.5-10.1); Globulin 5.1 gm/dl (1.3-3.2); Total Protein,Serum 8.3 gm/dL (6.4-8.2)
[2018-04-14 13:46] LABS: Potassium 4.7 mmoL/L (3.5-5.1)
--- NOTE | 2018-04-14 14:37 | Pharmacy Consult Notes ---
<GonzalesDedrick alves Pedro - Last Filed: 04/17/18 08:40> [facility] Pharmacy Heparin Dosing - Demographic Data Admission date:: 04/14/18 Date: 04/14/18 Time: 14:34 Allergies/Adverse Reactions: Allergies Allergy/AdvReac Type Severity Reaction Status Date / Time azithromycin Allergy Intermediate S-DIFF. Verified 04/11/18 11:42 BREATHING daptomycin [DAPTOMYCIN] Allergy Intermediate I-RASH/ITCH Verified 04/11/18 11:42 ING levofloxacin Allergy Intermediate I-RASH Verified 04/11/18 11:42 Penicillins Allergy Intermediate I-HIVES Verified 04/11/18 11:42 Height: 1.55 m Weight: 79.8 kg - Indication Medication therapy:: Heparin Patient Problems: Current Active Problems Ischemic foot (Acute) Fever (Acute) CVA?: No Bleeding problem?: No Kidney disease?: No WV?: No Desired PTT range:: 50-70 seconds - Labs Anticoagulation Lab Results:: 04/14/18 12:55 Hgb 11.5 L Hct 36.5 L Plt Count 195 - Monitoring Dose Monitor 1 Date: 04/14/18 Time: 12:55 Infusion Rate:: 26 ML/HR (1300 UNITS/HR)- 5000 UNIT BOLUS Dose Monitor 2 Date: 04/14/18 Time: 19:00 Dose Monitor 3 Date: 04/15/18 Time: 02:00 - Core Measures Most Recent Labs:: Laboratory Results - last 24 hr 04/14/18 12:55: WBC 7.3, RBC 4.34, Hgb 11.5 L, Hct 36.5 L, MCV 84.0, MCH 26.5 L, MCHC 31.5 L, RDW 17.6 H, Plt Count 195, MPV 7.7, Neut % (Auto) 62.0, Lymph % (Auto) 29.2, [place] % (Auto) 7.0, Eos % (Auto) 1.5, Baso % (Auto) 0.4, Neut # (Auto) 4.5, Lymph # (Auto) 2.1, [place] # (Auto) 0.5, Eos # (Auto) 0.1, Baso # (Auto) 0.0 04/14/18 12:55: Sodium 136, Potassium 4.7, Chloride 99, Carbon Dioxide 29, Anion Gap 12.7, BUN 17, Creatinine 1.18 H, Estimated Creat Clear 72, Estimated GFR 48 L, Est GFR ( Amer) 59, Glucose 264 H, Calcium 9.4, Total Bilirubin 0.6, AST 25, ALT 37, Alkaline Phosphatase 73, Total Protein 8.3 H, Albumin 3.2 L, Globulin 5.1 H, Albumin/Globulin Ratio 0.6 L 04/14/18 12:55: Lactate 2.8 H <Sylvia Lindquist - Last Filed: 04/19/18 09:16> [facility] Pharmacy Heparin Dosing - Labs Anticoagulation Lab Results:: 04/14/18 12:55 Hgb 11.5 L Hct 36.5 L Plt Count 195 - Monitoring Dose Monitor 1 PTT Result:: 28.5 Dose Monitor 2 PTT Result:: 43.5 Infusion Rate:: 29 mL/hr Dose Monitor 3 PTT Result:: 44.8 Infusion Rate:: 32 mL/hr Dose Monitor 4 Date: 04/15/18 Time: 09:00 PTT Result:: 51.0 Infusion Rate:: 32 ml/hr Dose Monitor 5 Date: 04/15/18 Time: 15:00 PTT Result:: 50.5 Infusion Rate:: 33 ML/HR Dose Monitor 6 Date: 04/15/18 Time: 21:00 PTT Result:: 49.9 Infusion Rate:: 35 ML/HR Dose Monitor 7 Date: 04/16/18 Time: 04:15 PTT Result:: 61.2 Infusion Rate:: 35 ML/HR Dose Monitor 8 Date: 04/16/18 Time: 10:15 PTT Result:: 66.7 Infusion Rate:: 35 ML/HR Dose Monitor 9 Date: 04/17/18 Time: 10:00 PTT Result:: 66.1 Infusion Rate:: 35 ML/HR Dose Monitor 10 Date: 04/18/18 Time: 10:00 - Core Measures Is INR > or = 2 at discharge?: No Most Recent Labs:: Laboratory Results - last 24 hr 04/14/18 12:55: WBC 7.3, RBC 4.34, Hgb 11.5 L, Hct 36.5 L, MCV 84.0, MCH 26.5 L, MCHC 31.5 L, RDW 17.6 H, Plt Count 195, MPV 7.7, Neut % (Auto) 62.0, Lymph % (Auto) 29.2, [place] % (Auto) 7.0, Eos % (Auto) 1.5, Baso % (Auto) 0.4, Neut # (Auto) 4.5, Lymph # (Auto) 2.1, [place] # (Auto) 0.5, Eos # (Auto) 0.1, Baso # (Auto) 0.0 04/14/18 12:55: PT 9.6, INR 0.93, APTT 28.5 04/14/18 12:55: Sodium 136, Potassium 4.7, Chloride 99, Carbon Dioxide 29, Anion Gap 12.7, BUN 17, Creatinine 1.18 H, Estimated Creat Clear 72, Estimated GFR 48 L, Est GFR ( Amer) 59, Glucose 264 H, Calcium 9.4, Total Bilirubin 0.6, AST 25, ALT 37, Alkaline Phosphatase 73, Total Protein 8.3 H, Albumin 3.2 L, Globulin 5.1 H, Albumin/Globulin Ratio 0.6 L 04/14/18 12:55: Lactate 2.8 H 04/14/18 16:45: POC Glucose 228 H 04/14/18 17:25: Lactate 2.5 H 04/14/18 19:00: APTT 43.5 H D 04/14/18 19:40: Lactate 2.9 H 04/14/18 21:15: POC Glucose 260 H 04/14/18 22:26: Urine Color Yellow, Urine Appearance Clear, Urine pH 7.0, Ur Specific [place] 1.015, Urine Protein Negative, Urine Glucose (UA) Trace, Urine Ketones Negative, Urine Blood Negative, Urine Nitrate Negative, Urine Bilirubin Negative, Urine Urobilinogen 1.0, Ur Leukocyte Esterase Trace, Urine WBC Occasional, Ur Squamous Epith Cells -04/15/18 02:20: APTT 44.8 H 04/15/18 06:11: POC Glucose 230 H 04/15/18 08:55: APTT 51.0 H* D If INR was < than 2.0 why was therapy stopped?: PATIENT WAS SWITCHED TO LOVENOX AND WARFARIN WAS RESTARTED Were Heparin and Warfarin started on the same day?: No If not, why?: PATIENT IS BRIDGING WITH LOVENOX
--- NOTE | 2018-04-14 15:33 | Pharmacy Consult Notes ---
[facility] Pharmacy VTE Monitoring - Patient Demographics Admission date: 04/14/18 Report Date: 04/14/18 Time: 15:33 Allergies/Adverse Reactions: Patient Allergies azithromycin Allergy (Intermediate, Verified 04/11/18 11:42) S-DIFF. BREATHING daptomycin [DAPTOMYCIN] Allergy (Intermediate, Verified 04/11/18 11:42) I-RASH/ITCHING levofloxacin Allergy (Intermediate, Verified 04/11/18 11:42) I-RASH Penicillins Allergy (Intermediate, Verified 04/11/18 11:42) I-HIVES Height: 1.55 m Weight: 79.8 kg Patient Problems: Current Active Problems Ischemic foot (Acute) Fever (Acute) - VTE Risk Labs: VTE Related Lab Results Hgb 11.5 g/dL (12.2-16.2) L 04/14/18 12:55 Hct 36.5 % (37.0-47.0) L 04/14/18 12:55 Plt Count 195 K/mm3 (142-424) 04/14/18 12:55 BUN 17 mg/dL (7-18) 04/14/18 12:55 Creatinine 1.18 mg/dL (0.55-1.02) H 04/14/18 12:55 Estimated Creat Clear 72 mL/min (0-300) 04/14/18 12:55 Was VTE Risk Assessment Performed: Yes VTE Score: 7 VTE Risk Level: Moderate Risk Clinical Trial Participant: No - Prophylaxis VTE Prophylaxis Ordered?: Yes Types of VTE Prophylaxis: Pharmacological (heparin drip)
[2018-04-14 15:49] LABS: Activated Partial Thrombo Time 28.5 seconds (23.6-34.0); INR 0.93 (0.9-1.1); Prothrombin Time 9.6 seconds (9.4-11.8)
[2018-04-14 22:37] LABS: Appearance,Urine CLEAR (Clear); Bilirubin,Urine Negative (Negative); Blood, Urine Negative (Negative); Color,Urine YELLOW (Yellow); Glucose,Urine (UA) TRACE (Negative); Ketones,Urine Negative (Negative); Leukocyte Esterase,Urine TRACE (Negative); Microscopic, Urine URINE MICROSCOPIC (MICROSCOPIC); Protein,Urine Negative (Negative); Specific Gravity, Urine 1.015 (1.005-1.030)
[2018-04-14 22:44] LABS: WBC,Urine Occasional #/hpf (0-3)
--- NOTE | 2018-04-15 08:44 | Progress Note ---
Internal Medicine - PN: Subj *Date: 04/15/18 *Time: 08:41 Interval history: Patient with no new complaints today, no fever overnight, no pain in foot. Exam Vital signs and Labs for Last 24 Hours: Temp Pulse Resp BP Pulse Ox 97.8 F 77 18 112/69 95 04/15/18 07:54 04/15/18 07:54 04/15/18 07:54 04/15/18 07:54 04/15/18 08:00 Laboratory Results - last 24 hr 04/14/18 12:55: WBC 7.3, RBC 4.34, Hgb 11.5 L, Hct 36.5 L, MCV 84.0, MCH 26.5 L, MCHC 31.5 L, RDW 17.6 H, Plt Count 195, MPV 7.7, Neut % (Auto) 62.0, Lymph % (Auto) 29.2, [place] % (Auto) 7.0, Eos % (Auto) 1.5, Baso % (Auto) 0.4, Neut # (Auto) 4.5, Lymph # (Auto) 2.1, [place] # (Auto) 0.5, Eos # (Auto) 0.1, Baso # (Auto) 0.0 04/14/18 12:55: PT 9.6, INR 0.93, APTT 28.5 04/14/18 12:55: Sodium 136, Potassium 4.7, Chloride 99, Carbon Dioxide 29, Anion Gap 12.7, BUN 17, Creatinine 1.18 H, Estimated Creat Clear 72, Estimated GFR 48 L, Est GFR ( Amer) 59, Glucose 264 H, Calcium 9.4, Total Bilirubin 0.6, AST 25, ALT 37, Alkaline Phosphatase 73, Total Protein 8.3 H, Albumin 3.2 L, Globulin 5.1 H, Albumin/Globulin Ratio 0.6 L 04/14/18 12:55: Lactate 2.8 H 04/14/18 16:45: POC Glucose 228 H 04/14/18 17:25: Lactate 2.5 H 04/14/18 19:00: APTT 43.5 H D 04/14/18 19:40: Lactate 2.9 H 04/14/18 21:15: POC Glucose 260 H 04/14/18 22:26: Urine Color Yellow, Urine Appearance Clear, Urine pH 7.0, Ur Specific [place] 1.015, Urine Protein Negative, Urine Glucose (UA) Trace, Urine Ketones Negative, Urine Blood Negative, Urine Nitrate Negative, Urine Bilirubin Negative, Urine Urobilinogen 1.0, Ur Leukocyte Esterase Trace, Urine WBC Occasional, Ur Squamous Epith Cells 10-04/15/18 02:20: APTT 44.8 H 04/15/18 06:11: POC Glucose 230 H I & O for Last 24 hours: Intake & Output 04/12/18 04/13/18 04/14/18 04/15/18 11:59 11:59 11:59 11:59 Intake Total 1603 / 1603 Output Total 50 / 50 Balance 1553 / 1553 Weight 172 lb 1 oz - Constitutional no acute distress - *Routine HEENT Exam ENT: Present: mucous membranes moist - *Routine Respiratory Exam Present: CTA bilaterally - *Routine Cardiovascular Exam Present: RRR - *Routine Extremities Exam Present: edema (on top of right foot has decreased) - *Routine Skin Exam Present: erythema (on top of right foot has diminished slightly) Comments: area of dark skin on tip of right 3rd toe is unchanged Assessment and Plan (1) Ischemic foot Current visit: Yes Status: Acute Category: Medical Code(s): I99.8 - Other disorder of circulatory system (2) Fever Current visit: Yes Status: Acute Category: Medical Code(s): R50.9 - Fever, unspecified (3) Coronary arteriosclerosis Current visit: No Status: Chronic Category: Medical Code(s): I25.10 - Atherosclerotic heart disease of [place] coronary artery without angina pectoris (4) Diabetes mellitus Current visit: No Status: Chronic Qualifiers: Diabetes mellitus type: type 2 Diabetes mellitus prison insulin use: without terminal gauger use Diabetes mellitus complication status: with neurologic complications Diabetes mellitus complication detail: with polyneuropathy Qualified Code(s): E11.42 - Type 2 diabetes mellitus with diabetic polyneuropathy Category: Medical Code(s): E11.9 - Type 2 diabetes mellitus without complications (5) 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 Current visit: No Status: Chronic Category: Medical Code(s): E08.621 - Diabetes mellitus due to underlying condition with foot ulcer; L97.519 - Non- pressure chronic ulcer of other part of right foot with unspecified severity (6) History of CVA (cerebrovascular accident) Current visit: No Status: Chronic Category: Medical Code(s): Z86.73 - Personal history of transient ischemic attack (TIA), and cerebral infarction without residual deficits (7) Hyperlipidemia Current visit: No Status: Chronic Qualifiers: Hyperlipidemia type: unspecified Qualified Code(s): E78.5 - Hyperlipidemia, unspecified Category: Medical Code(s): E78.5 - Hyperlipidemia, unspecified (8) Hypertensive heart disease without heart failure Current visit: No Status: Chronic Category: Medical Code(s): I11.9 - Hypertensive heart disease without heart failure (9) Left spastic hemiparesis Current visit: No Status: Chronic Category: Medical Code(s): G81.14 - Spastic hemiplegia affecting left nondominant side (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
--- NOTE | 2018-04-16 10:29 | Progress Note ---
Internal Medicine - PN: Subj *Date: 04/16/18 *Time: 10:27 Interval history: Patient with no new complaints, states she slept well last night. Exam Vital signs and Labs for Last 24 Hours: Temp Pulse Resp BP Pulse Ox 96.9 F L 71 20 121/53 L 95 04/16/18 07:48 04/16/18 07:48 04/16/18 07:48 04/16/18 07:48 04/16/18 08:00 Laboratory Results - last 24 hr 04/15/18 11:06: POC Glucose 303 H* 04/15/18 15:10: APTT 50.5 H* 04/15/18 16:27: POC Glucose 336 H* 04/15/18 20:13: POC Glucose 465 H* 04/15/18 21:35: APTT 49.9 H 04/16/18 04:15: APTT 61.2 H* D 04/16/18 06:54: POC Glucose 316 H* I & O for Last 24 hours: Intake & Output 04/13/18 04/14/18 04/15/18 04/16/18 11:59 11:59 11:59 11:59 Intake Total 1603 / 1603 369 / 369 Output Total 50 / 50 2500 / 2500 Balance 1553 / 1553 -2131 / -2131 Weight 172 lb 1 oz 173 lb 3 oz - Constitutional no acute distress - *Routine Respiratory Exam Present: CTA bilaterally - *Routine Cardiovascular Exam Present: RRR - *Routine Skin Exam Comments: Skin redness on top of foot has improved greatly, but toe is more edematous with more skin redness today Assessment and Plan (1) Ischemic foot Current visit: Yes Status: Acute Category: Medical Code(s): I99.8 - Other disorder of circulatory system (2) Fever Current visit: Yes Status: Acute Category: Medical Code(s): R50.9 - Fever, unspecified (3) Coronary arteriosclerosis Current visit: No Status: Chronic Category: Medical Code(s): I25.10 - Atherosclerotic heart disease of [place] coronary artery without angina pectoris (4) Diabetes mellitus Current visit: No Status: Chronic Qualifiers: Diabetes mellitus type: type 2 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: without penitentiary use Diabetes mellitus complication status: with neurologic complications Diabetes mellitus complication detail: with polyneuropathy Qualified Code(s): E11.42 - Type 2 diabetes mellitus with diabetic polyneuropathy Category: Medical Code(s): E11.9 - Type 2 diabetes mellitus without complications (5) 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 Current visit: No Status: Chronic Category: Medical Code(s): E08.621 - Diabetes mellitus due to underlying condition with foot ulcer; L97.519 - Non- pressure chronic ulcer of other part of right foot with unspecified severity (6) History of CVA (cerebrovascular accident) Current visit: No Status: Chronic Category: Medical Code(s): Z86.73 - Personal history of transient ischemic attack (TIA), and cerebral infarction without residual deficits (7) Hyperlipidemia Current visit: No Status: Chronic Qualifiers: Hyperlipidemia type: unspecified Qualified Code(s): E78.5 - Hyperlipidemia, unspecified Category: Medical Code(s): E78.5 - Hyperlipidemia, unspecified (8) Hypertensive heart disease without heart failure Current visit: No Status: Chronic Category: Medical Code(s): I11.9 - Hypertensive heart disease without heart failure (9) Left spastic hemiparesis Current visit: No Status: Chronic Category: Medical Code(s): G81.14 - Spastic hemiplegia affecting left nondominant side (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
[2018-04-17 06:35] LABS: Basophils % 0.3 % (0.1-2.0); Eosinophils # 0.5 K/mm3 (0.0-0.4); Eosinophils % 5.3 % (0.1-12.0); Hematocrit 34.6 % (37.0-47.0); Hemoglobin 11.1 g/dL (12.2-16.2); Lymphocytes # 3.5 K/mm3 (0.7-4.5); Lymphocytes % 37.7 K/mm3 (10-50); Mean Corpuscular Volume 84.5 fl (81-99); Mean Platelet Volume 8.2 fl (7.4-10.4); Monocytes # 0.5 K/mm3 (0.1-1.0); Monocytes % 5.7 % (1.7-9.3); Neutrophils # 4.7 K/mm3 (1.8-7.8); Neutrophils % 50.9 % (37.0-80.0); Platelet Count 245 K/mm3 (142-424); Red Cell Distribution Width 17.6 % (11.5-17.5); White Blood Count 9.3 K/mm3 (4.8-10.8)
[2018-04-17 06:42] LABS: Anion Gap 13.7 mEq/L (5-15); Calcium 8.7 mg/dL (8.5-10.1); Potassium 4.7 mmoL/L (3.5-5.1)
--- NOTE | 2018-04-17 07:35 | Progress Note ---
Subjective Date: 04/17/18 Time: 07:33 Principal diagnosis: Right toe ischemia Interval history: 52-year-old white female in bed in no acute distress. Denies any chest pain, pressure or tightness. Patient states that the toe is feeling worse over the last 24 hours. The mother states that the toe began bleeding yesterday. Exam Vital signs and Labs for Last 24 Hours: Temp Pulse Resp BP Pulse Ox 98.1 F 70 16 125/76 92 L 04/17/18 07:16 04/17/18 07:16 04/17/18 07:16 04/17/18 07:16 04/17/18 07:16 Laboratory Results - last 24 hr 04/16/18 10:25: APTT 66.7 H* 04/16/18 10:53: POC Glucose 376 H* 04/16/18 16:43: POC Glucose 392 H* 04/16/18 19:55: POC Glucose 408 H* 04/16/18 21:58: POC Glucose 372 H* 04/17/18 06:06: POC Glucose 294 H 04/17/18 06:18: WBC 9.3 D, RBC 4.10 L, Hgb 11.1 L, Hct 34.6 L, MCV 84.5, MCH 27.0, MCHC 32.0, RDW 17.6 H, Plt Count 245 D, MPV 8.2, Neut % (Auto) 50.9, Lymph % (Auto) 37.7, [place] % (Auto) 5.7, Eos % (Auto) 5.3, Baso % (Auto) 0.3, Neut # (Auto) 4.7, Lymph # (Auto) 3.5, [place] # (Auto) 0.5, Eos # (Auto) 0.5 H, Baso # (Auto) 0.0 04/17/18 06:18: Sodium 133 L, Potassium 4.7, Chloride 98, Carbon Dioxide 26, Anion Gap 13.7, BUN 24 H D, Creatinine 1.21 H, Estimated Creat Clear 69, Estimated GFR 47 L, Est GFR ( Amer) 57 L, Glucose 299 H, Calcium 8.7 I & O for Last 24 hours: Intake & Output 04/14/18 04/15/18 04/16/18 04/17/18 11:59 11:59 11:59 11:59 Intake Total 1603 / 1603 369 / 369 890 / 890 Output Total 50 / 50 2500 / 2500 2600 / 2600 Balance 1553 / 1553 -2131 / -2131 -1710 / -1710 Weight 172 lb 1 oz 173 lb 3 oz 173 lb 1 oz Microbiology Reports for the Last 24 Hours: Microbiology 04/14/18 13:05 Blood Blood Culture - Preliminary NO GROWTH AFTER 48 HOURS 04/14/18 12:55 Blood Blood Culture - Preliminary NO GROWTH AFTER 48 HOURS - *Routine Respiratory Exam Present: CTA bilaterally. Absent: accessory muscle use, rales, rhonchi, wheezes - *Routine Cardiovascular Exam Present: RRR. Absent: murmur, gallop, rubs - *Routine Extremities Exam Present: edema. Absent: calf tenderness Comments: Right third toe is purplish in color with some dried blood noted. There is edema to the foot. 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 Status: Chronic Current Visit: No (6) History of CVA (cerebrovascular accident) Status: Chronic Current Visit: No (7) Hyperlipidemia Status: Chronic Current Visit: No (8) Hypertensive heart disease without heart failure Status: Chronic Current Visit: No (9) Left spastic hemiparesis Status: Chronic Current Visit: No (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 Further recommendations to follow pending runoff.
[2018-04-17 08:09] LABS: INR 0.97 (0.9-1.1)
--- NOTE | 2018-04-17 08:50 | Progress Note ---
Internal Medicine - PN: Subj *Date: 04/17/18 *Time: 08:48 Interval history: Patient with no new complaints today. Exam Vital signs and Labs for Last 24 Hours: Temp Pulse Resp BP Pulse Ox 98.1 F 70 16 125/76 92 L 04/17/18 07:16 04/17/18 07:16 04/17/18 07:16 04/17/18 07:16 04/17/18 07:16 Laboratory Results - last 24 hr 04/16/18 10:25: APTT 66.7 H* 04/16/18 10:53: POC Glucose 376 H* 04/16/18 16:43: POC Glucose 392 H* 04/16/18 19:55: POC Glucose 408 H* 04/16/18 21:58: POC Glucose 372 H* 04/17/18 06:06: POC Glucose 294 H 04/17/18 06:18: WBC 9.3 D, RBC 4.10 L, Hgb 11.1 L, Hct 34.6 L, MCV 84.5, MCH 27.0, MCHC 32.0, RDW 17.6 H, Plt Count 245 D, MPV 8.2, Neut % (Auto) 50.9, L ymph % (Auto) 37.7, [place] % (Auto) 5.7, Eos % (Auto) 5.3, Baso % (Auto) 0.3, Neut # (Auto) 4.7, Lymph # (Auto) 3.5, [place] # (Auto) 0.5, Eos # (Auto) 0.5 H, Baso # (Auto) 0.0 04/17/18 06:18: Sodium 133 L, Potassium 4.7, Chloride 98, Carbon Dioxide 26, Anion Gap 13.7, BUN 24 H D, Creatinine 1.21 H, Estimated Creat Clear 69, Estimated GFR 47 L, Est GFR ( Amer) 57 L, Glucose 299 H, Calcium 8.7 04/17/18 07:50: PT 10.0, INR 0.97 I & O for Last 24 hours: Intake & Output 04/14/18 04/15/18 04/16/18 04/17/18 11:59 11:59 11:59 11:59 Intake Total 1603 / 1603 369 / 369 1300 / 1300 Output Total 50 / 50 2500 / 2500 2600 / 2600 Balance 1553 / 1553 -2131 / -2131 -1300 / -1300 Weight 172 lb 1 oz 173 lb 3 oz 175 lb 14.862 oz Microbiology Reports for the Last 24 Hours: Microbiology 04/14/18 13:05 Blood Blood Culture - Preliminary NO GROWTH AFTER 48 HOURS 04/14/18 12:55 Blood Blood Culture - Preliminary NO GROWTH AFTER 48 HOURS - Constitutional no acute distress - *Routine HEENT Exam Head: Present: normocephalic Eye: Present: EOMI, PERRL ENT: Present: mucous membranes moist - *Routine Neck Exam Present: supple. Absent: lymphadenopathy - *Routine Respiratory Exam Present: CTA bilaterally - *Routine Cardiovascular Exam Present: RRR - *Routine Skin Exam Present: warm. Absent: rash Comments: right 3 rd toe with a small amount of dried blood present, no changes otherwise - *Routine Neurological Exam Present: alert, oriented X3 Assessment and Plan (1) Ischemic foot Current visit: Yes Status: Acute Category: Medical Code(s): I99.8 - Other disorder of circulatory system (2) Fever Current visit: Yes Status: Acute Category: Medical Code(s): R50.9 - Fever, unspecified (3) Coronary arteriosclerosis Current visit: No Status: Chronic Category: Medical Code(s): I25.10 - Atherosclerotic heart disease of [place] coronary artery without angina pectoris (4) Diabetes mellitus Current visit: No Status: Chronic Qualifiers: Diabetes mellitus type: type 2 Diabetes mellitus 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 manager insulin use: without usp use Diabetes mellitus complication status: with neurologic complications Diabetes mellitus complication detail: with polyneuropathy Qualified Code(s): E11.42 - Type 2 diabetes mellitus with diabetic polyneuropathy Category: Medical Code(s): E11.9 - Type 2 diabetes mellitus without complications (5) 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 Current visit: No Status: Chronic Category: Medical Code(s): E08.621 - Diabetes mellitus due to underlying condition with foot ulcer; L97.519 - Non- pressure chronic ulcer of other part of right foot with unspecified severity (6) History of CVA (cerebrovascular accident) Current visit: No Status: Chronic Category: Medical Code(s): Z86.73 - Personal history of transient ischemic attack (TIA), and cerebral infarction without residual deficits (7) Hyperlipidemia Current visit: No Status: Chronic Qualifiers: Hyperlipidemia type: unspecified Qualified Code(s): E78.5 - Hyperlipidemia, unspecified Category: Medical Code(s): E78.5 - Hyperlipidemia, unspecified (8) Hypertensive heart disease without heart failure Current visit: No Status: Chronic Category: Medical Code(s): I11.9 - Hypertensive heart disease without heart failure (9) Left spastic hemiparesis Current visit: No Status: Chronic Category: Medical Code(s): G81.14 - Spastic hemiplegia affecting left nondominant side (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 Increase Insulin dose this morning.
--- NOTE | 2018-04-17 14:53 | Consult Report ---
*Admission Date: 04/14/18 *Chief complaint: R 3rd toe gangrene *History of present illness: Ms. Nieto is a 52-year-old diabetic female who presents for evaluation of right foot gangrene. Patient has been treated by cardiology and podiatry outpatient in the past. She has history of peripheral arterial disease resulting in a left below-knee amputation and right fourth digit amputation. She was admitted by her PCP Dr. Alva was started on a heparin drip and intervention via the cardiology team today. 11/21/17 vascular studies done to access CONOR/toe pressures to evaluate for chronic nonhealing right third toe ulcer, diabetes, history of PAD. CONOR R: 1.7 elevated indicating calcification/vessel hardening; TBI R: 0.3 small vessel disease; Diminished pulses. Dr. Padilla performed a right lower extremity runoff 04/17/18. Procedures: 1. Left femoral arterial access 2. Catheter placement in the abdominal aorta 3. Abdominal aortography 4. Positioning of the catheter in the abdominal aorta 5. No lateral iliofemoral angiogram with runoff to the foot 6. Drug-eluting balloon angioplasty to the right popliteal artery and right superficial femoral artery Impression: 1. Severe stenosis in the right superior femoral artery and popliteal artery successfully treated with a drug-eluting balloon. 2. Three-vessel runoff below the knee, the foot has severe small vessel diffuse diabetic vasculopathic disease. Review of Systems - Constitutional Denies chills - Eyes Denies blurry vision - *Cardiovascular Denies chest pain, Denies generalized swelling - *Respiratory Denies shortness of breath - *Gastrointestinal Denies abdominal pain, Denies nausea, Denies vomiting - *Genitourinary Reports urinary incontinence - *Musculoskeletal Reports muscle weakness, Reports numbness - Integumentary/Breasts Reports change in skin color (purple-bluish) - *Neurologic Reports tingling/numbness/burning sensations, Reports weakness, Denies headache(s), Denies dizziness [facility] History Medical History: Reports:: Cancer, Coronary Artery Disease, Cerebrovascular Accident, Diabetes Mellitus Type 2, Gall Bladder Disease, Hyperlipidemia, Hypertension, MRSA, Myocardial Infarction, Peripheral Vascular Disease, Renal Disease, Renal Insufficiency, Transient Ischemic Attacks (TIA), Urinary Tract Infection Denies:: Asthma, Chronic Obstructive Pulmonary Disease (COPD), Diabetes Mellitus Type 1, Internal Pacemaker Other Medical History: Reports: Chemotherapy, Sinus Problems Laterality Cases: Right: Mastectomy, Other, Bilateral: Carpal Tunnel Release Other Surgeries: Yes: Cancer Surgery, Cardiac Catheterization, Cardiac Surgery, Cholecystectomy, , Open Heart Surgery, Tubal Ligation, Other. No: Pacemaker Amputation: Yes (Left BKA 06/23/14; 4th toe right foot 2016) - *Social History Educational Level: Attended College Smoking Status: Never smoker # Packs/Day (cigarettes): 0 #Yrs smoked (if former smoker): 0 Alcohol Intake: never Alcohol Intake Frequency:: other Substance Use Type: denies use Occupational Status: unemployed, disabled Housing: house Household Members: family - Psychiatric History Expresses thoughts of harming self/others: None Suicide Plan Description: No Plan *Family Hx:: Cancer, Diabetes, Heart Attack, Hyperlipidemia, Hypertension Meds Home Medications Medication Instructions Recorded Confirmed Type amiloride 5 mg tablet 10 mg PO DAILY 09/22/17 04/14/18 History aspirin 25 mg-dipyridamole 200 mg 1 cap PO BID 09/22/17 04/14/18 History capsule,ext.release 12 hr multiphase baclofen 10 mg tablet 10 mg PO DAILY 09/22/17 04/14/18 History clopidogrel 75 mg tablet 75 mg PO DAILY 09/22/17 04/14/18 History glimepiride 2 mg tablet 2 mg PO DAILY 09/22/17 04/15/18 History linagliptin 2.5 mg-metformin 1,000 1 tab PO BID 09/22/17 04/14/18 History mg tablet metolazone 5 mg tablet 5 mg PO DAILY 09/22/17 04/14/18 History Loratadine [Allergy] 10 mg PO DAILY 11/19/17 04/14/18 History Baclofen [Lioresal 10mg tablet] 20 mg PO HS 11/20/17 04/14/18 History Citalopram Hydrobromide [Celexa 20 mg PO DAILY 11/20/17 04/14/18 History 20mg Tablet] Insulin Lispro [Humalog Kwikpen 0 unit SQ AC 11/20/17 04/14/18 History U-100] Donepezil HCl [Aricept 5mg] 5 mg PO HS 04/14/18 04/14/18 History Insulin Detemir [Levemir 45 unit SQ DAILY 04/14/18 04/14/18 History 100units/mL 3mL flexpen] Potassium Chloride 60 meq PO TID 04/14/18 04/14/18 History Rosuvastatin Calcium [Crestor] 20 mg PO DAILY 04/14/18 04/14/18 History Spironolactone [Aldactone 25mg 25 mg PO DAILY 04/14/18 04/14/18 History Tab] Furosemide [Furosemide 40MG tAB] 40 mg PO DAILY 04/15/18 04/15/18 History Warfarin Sodium 5 mg PO SUMOTUTHFRSA 04/17/18 04/17/18 History Warfarin Sodium 7.5 mg PO WE 04/17/18 04/17/18 History Allergies Allergy/AdvReac Type Severity Reaction Status Date / Time azithromycin Allergy Intermediate S-DIFF. Verified 04/11/18 11:42 BREATHING daptomycin [DAPTOMYCIN] Allergy Intermediate I-RASH/ITCH Verified 04/11/18 11:42 ING levofloxacin Allergy Intermediate I-RASH Verified 04/11/18 11:42 Penicillins Allergy Intermediate I-HIVES Verified 04/11/18 11:42 Exam Vital signs and Labs for Last 24 Hours: Temp Pulse Resp BP Pulse Ox 97.8 F 72 18 117/68 94 L 04/17/18 14:10 04/17/18 14:10 04/17/18 14:10 04/17/18 14:10 04/17/18 14:10 Laboratory Results - last 24 hr 04/16/18 16:43: POC Glucose 392 H* 04/16/18 19:55: POC Glucose 408 H* 04/16/18 21:58: POC Glucose 372 H* 04/17/18 06:06: POC Glucose 294 H 04/17/18 06:18: WBC 9.3 D, RBC 4.10 L, Hgb 11.1 L, Hct 34.6 L, MCV 84.5, MCH 27.0, MCHC 32.0, RDW 17.6 H, Plt Count 245 D, MPV 8.2, Neut % (Auto) 50.9, Lymph % (Auto) 37.7, [place] % (Auto) 5.7, Eos % (Auto) 5.3, Baso % (Auto) 0.3, Neut # (Auto) 4.7, Lymph # (Auto) 3.5, [place] # (Auto) 0.5, Eos # (Auto) 0.5 H, Baso # (Auto) 0.0 04/17/18 06:18: Sodium 133 L, Potassium 4.7, Chloride 98, Carbon Dioxide 26, Anion Gap 13.7, BUN 24 H D, Creatinine 1.21 H, Estimated Creat Clear 69, Estimated GFR 47 L, Est GFR ( Amer) 57 L, Glucose 299 H, Calcium 8.7 04/17/18 07:50: PT 10.0, INR 0.97 04/17/18 10:13: APTT 66.1 H* 04/17/18 10:59: POC Glucose 293 H 04/17/18 12:11: Activated Clotting Time 310 H* I & O for Last 24 hours: Intake & Output 04/15/18 04/16/18 04/17/18 04/18/18 11:59 11:59 11:59 11:59 Intake Total 1603 / 1603 369 / 369 1300 / 1300 120 / 120 Output Total 50 / 50 2500 / 2500 2600 / 2600 Balance 1553 / 1553 -2131 / -2131 -1300 / -1300 120 / 120 Weight 172 lb 1 oz 173 lb 3 oz 175 lb 14.862 oz 175 lb 14.862 oz Microbiology Reports for the Last 24 Hours: Microbiology 04/14/18 13:05 Blood Blood Culture - Preliminary NO GROWTH AFTER 48 HOURS 04/14/18 12:55 Blood Blood Culture - Preliminary NO GROWTH AFTER 48 HOURS - *Routine HEENT Exam Head: Present: normocephalic - *Routine Neck Exam Absent: JVD, tenderness - *Routine Respiratory Exam Absent: respiratory distress - *Routine Cardiovascular Exam Absent: bradycardia - *Routine Abdominal Exam Present: soft - *Routine Rectal Exam Patient deferred: visual exam - *Routine Exam Patient deferred: external exam - *Routine Extremities Exam Absent: normal capillary refill, calf tenderness - *Routine Skin Exam Present: erythema, gangrene (R 3rd toe) - *Routine Neurological Exam Present: moving all extremities - Detailed Lower Extremity Exam Foot/Toes: Right erythema (R 3rd toe erythema, gangrene), Right swelling (R 3rd toe) Top foot image: 1 - R 3rd toe gangrene-bluish purple color with no active purulence. Mild malodor noted. Localized edema and erythema. No ascending cellulitis. No pain to palpation. Decreased light touch sensation, baseline. Results - Labs Result Diagrams: 04/17/18 06:18 04/17/18 06:18 Labs: Abnormal lab results 04/16/18 04/16/18 04/16/18 Range/Units 16:43 19:55 21:58 RBC (4.20-5.40) M/mm3 Hgb (12.2-16.2) g/dL Hct (37.0-47.0) % RDW (11.5-17.5) % Eos # (Auto) (0.0-0.4) K/mm3 APTT (23.6-34.0) seconds Activated Clotting Time (74-125) SEC Sodium (136-145) mmol/L BUN (7-18) mg/dL Creatinine (0.55-1.02) mg/dL Estimated GFR (>60) ml/min Est GFR ( Amer) (>60) ML/MIN Glucose (74-106) mg/dL POC Glucose 392 H* 408 H* 372 H* (70-110) 04/17/18 04/17/18 04/17/18 Range/Units 06:06 06:18 06:18 RBC 4.10 L (4.20-5.40) M/mm3 Hgb 11.1 L (12.2-16.2) g/dL Hct 34.6 L (37.0-47.0) % RDW 17.6 H (11.5-17.5) % Eos # (Auto) 0.5 H (0.0-0.4) K/mm3 APTT (23.6-34.0) seconds Activated Clotting Time (74-125) SEC Sodium 133 L (136-145) mmol/L BUN 24 H D (7-18) mg/dL Creatinine 1.21 H (0.55-1.02) mg/dL Estimated GFR 47 L (>60) ml/min Est GFR ( Amer) 57 L (>60) ML/MIN Glucose 299 H (74-106) mg/dL POC Glucose 294 H (70-110) 04/17/18 04/17/18 04/17/18 Range/Units 10:13 10:59 12:11 RBC (4.20-5.40) M/mm3 Hgb (12.2-16.2) g/dL Hct (37.0-47.0) % RDW (11.5-17.5) % Eos # (Auto) (0.0-0.4) K/mm3 APTT 66.1 H* (23.6-34.0) seconds Activated Clotting Time 310 H* (74-125) SEC Sodium (136-145) mmol/L BUN (7-18) mg/dL Creatinine (0.55-1.02) mg/dL Estimated GFR (>60) ml/min Est GFR ( Amer) (>60) ML/MIN Glucose (74-106) mg/dL POC Glucose 293 H (70-110) H & H 04/14/18 04/17/18 Range/Units 12:55 06:18 Hgb 11.5 L 11.1 L (12.2-16.2) g/dL Hct 36.5 L 34.6 L (37.0-47.0) % Coagulation 04/14/18 04/17/18 Range/Units 12:55 07:50 INR 0.93 0.97 (0.9-1.1) All other labs normal. Assessment and Plan (1) Ischemic foot Current visit: Yes Status: Acute Category: Medical Code(s): I99.8 - Other disorder of circulatory system (2) Fever Current visit: Yes Status: Acute Category: Medical Code(s): R50.9 - Fever, unspecified (3) Coronary arteriosclerosis Current visit: No Status: Chronic Category: Medical Code(s): I25.10 - Atherosclerotic heart disease of [place] coronary artery without angina pectoris (4) Diabetes mellitus Current visit: No Status: Chronic Qualifiers: Diabetes mellitus type: type 2 Diabetes mellitus mcfp insulin use: without mcfp use Diabetes mellitus complication status: with neurologic complications Diabetes mellitus complication detail: with polyneuropathy Qualified Code(s): E11.42 - Type 2 diabetes mellitus with diabetic polyneuropathy Category: Medical Code(s): E11.9 - Type 2 diabetes mellitus without complications (5) 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 Current visit: No Status: Chronic Category: Medical Code(s): E08.621 - Diabetes mellitus due to underlying condition with foot ulcer; L97.519 - Non- pressure chronic ulcer of other part of right foot with unspecified severity (6) History of CVA (cerebrovascular accident) Current visit: No Status: Chronic Category: Medical Code(s): Z86.73 - Personal history of transient ischemic attack (TIA), and cerebral infarction without residual deficits (7) Hyperlipidemia Current visit: No Status: Chronic Qualifiers: Hyperlipidemia type: unspecified Qualified Code(s): E78.5 - Hyperlipidemia, unspecified Category: Medical Code(s): E78.5 - Hyperlipidemia, unspecified (8) Hypertensive heart disease without heart failure Current visit: No Status: Chronic Category: Medical Code(s): I11.9 - Hypertensive heart disease without heart failure (9) Left spastic hemiparesis Current visit: No Status: Chronic Category: Medical Code(s): G81.14 - Spastic hemiplegia affecting left nondominant side (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 Padilla performed a right lower extremity runoff 04/17/18. Impression: 1. Severe stenosis in the right superior femoral artery and popliteal artery successfully treated with a drug-eluting balloon. 2. Three-vessel runoff below the knee, the foot has severe small vessel diffuse diabetic vasculopathic disease. Right 3rd toe gangrene, mild 3rd toe cellulitis: Discussed with patient and family in detail. We reviewed the angiogram together. My recommendation would be a third digit amputation disarticulation at the level of the metatarsal phalangeal joint. The patient and her family understand that due to her severe small vessel disease there is a high risk for a more proximal amputation, such as a transmetatarsal amputation in the future. 1. Recommend consult to Dr. Drew 2. Recommend right 3rd toe amputation 3. Recommend Vanco 1g, d/c with one dose Orbactiv 4. Please call with questions or concerns
--- NOTE | 2018-04-18 08:13 | Progress Note ---
<Keisha Pedersen - Last Filed: 04/18/18 08:17> Internal Medicine - PN: Subj Interval history: Patient states she is feeling well this a.m. Denies chest pain and shortness of breath. She denies any pain. She ate well after her surgery yesterday without problems. She did sleep during the night. She awaits Dr. Drew's visit. Family at bedside. Exam Vital signs and Labs for Last 24 Hours: Temp Pulse Resp BP Pulse Ox 98.4 F 75 16 130/87 96 04/18/18 04:00 04/18/18 04:00 04/18/18 04:00 04/18/18 04:00 04/18/18 04:00 Laboratory Results - last 24 hr 04/17/18 10:13: APTT 66.1 H* 04/17/18 10:59: POC Glucose 293 H 04/17/18 12:11: Activated Clotting Time 310 H* 04/17/18 16:41: POC Glucose 359 H* 04/17/18 21:38: POC Glucose 363 H* 04/18/18 06:07: POC Glucose 366 H* 04/18/18 06:46: APTT 62.7 H* I & O for Last 24 hours: Intake & Output 04/15/18 04/16/18 04/17/18 04/18/18 11:59 11:59 11:59 11:59 Intake Total 1603 / 1603 369 / 369 1300 / 1300 720 / 720 Output Total 50 / 50 2500 / 2500 2600 / 2600 Balance 1553 / 1553 -2131 / -2131 -1300 / -1300 720 / 720 Weight 172 lb 1 oz 173 lb 3 oz 175 lb 14.862 oz 175 lb 14.862 oz - Constitutional no acute distress Comments: Lying comfortably in the bed. - *Routine Respiratory Exam Present: CTA bilaterally - *Routine Cardiovascular Exam Present: RRR - *Routine Abdominal Exam Present: soft, normoactive bowel sounds. Absent: tenderness - *Routine Extremities Exam Absent: edema Comments: Third toe is black. Second toe is with erythema; erythema noted above both toes. - *Routine Skin Exam Comments: Groin dressing is clean and dry - *Routine Neurological Exam Present: alert, oriented X3 Assessment and Plan (1) Ischemic foot Current visit: Yes Status: Acute Category: Medical Code(s): I99.8 - Other disorder of circulatory system (2) Fever Current visit: Yes Status: Acute Category: Medical Code(s): R50.9 - Fever, unspecified (3) Coronary arteriosclerosis Current visit: No Status: Chronic Category: Medical Code(s): I25.10 - Atherosclerotic heart disease of [place] coronary artery without angina pectoris (4) Diabetes mellitus Current visit: No Status: Chronic Qualifiers: Diabetes mellitus type: type 2 Diabetes mellitus [employer] insulin use: without 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 Diabetes mellitus complication status: with neurologic complications Diabetes mellitus complication detail: with polyneuropathy Qualified Code(s): E11.42 - Type 2 diabetes mellitus with diabetic polyneuropathy Category: Medical Code(s): E11.9 - Type 2 diabetes mellitus without complications (5) 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 Current visit: No Status: Chronic Category: Medical Code(s): E08.621 - Diabetes mellitus due to underlying condition with foot ulcer; L97.519 - Non- pressure chronic ulcer of other part of right foot with unspecified severity (6) History of CVA (cerebrovascular accident) Current visit: No Status: Chronic Category: Medical Code(s): Z86.73 - Personal history of transient ischemic attack (TIA), and cerebral infarction without residual deficits (7) Hyperlipidemia Current visit: No Status: Chronic Qualifiers: Hyperlipidemia type: unspecified Qualified Code(s): E78.5 - Hyperlipidemia, unspecified Category: Medical Code(s): E78.5 - Hyperlipidemia, unspecified (8) Hypertensive heart disease without heart failure Current visit: No Status: Chronic Category: Medical Code(s): I11.9 - Hypertensive heart disease without heart failure (9) Left spastic hemiparesis Current visit: No Status: Chronic Category: Medical Code(s): G81.14 - Spastic hemiplegia affecting left nondominant side (10) long-term 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 Current visit: No Status: Chronic Category: Medical Code(s): Z79.01 - long-term (current) use of 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 (11) Peripheral arterial occlusive disease Current visit: No Status: Chronic Category: Medical Code(s): I77.9 - Disorder of arteries and arterioles, unspecified - Assessment and plan all Dx Assessment and Plan for all problems:: Dr. Calloway's note reviewed. Will discuss antibiotics with Dr. Alva. Dr. Drew to see patient today. <Shawn Alva - Last Filed: 04/18/18 08:50> Exam Vital signs and Labs for Last 24 Hours: Temp Pulse Resp BP Pulse Ox 98.4 F 81 15 130/87 92 L 04/18/18 04:00 04/18/18 08:41 04/18/18 08:41 04/18/18 04:00 04/18/18 08:41 Laboratory Results - last 24 hr 04/17/18 10:13: APTT 66.1 H* 04/17/18 10:59: POC Glucose 293 H 04/17/18 12:11: Activated Clotting Time 310 H* 04/17/18 16:41: POC Glucose 359 H* 04/17/18 21:38: POC Glucose 363 H* 04/18/18 06:07: POC Glucose 366 H* 04/18/18 06:46: APTT 62.7 H* I & O for Last 24 hours: Intake & Output 04/15/18 04/16/18 04/17/18 04/18/18 11:59 11:59 11:59 11:59 Intake Total 1603 / 1603 369 / 369 1300 / 1300 720 / 720 Output Total 50 / 50 2500 / 2500 2600 / 2600 Balance 1553 / 1553 -2131 / -2131 -1300 / -1300 720 / 720 Weight 172 lb 1 oz 173 lb 3 oz 175 lb 14.862 oz 175 lb 14.862 oz Assessment and Plan (1) Ischemic foot Current visit: Yes Status: Acute Category: Medical Code(s): I99.8 - Other disorder of circulatory system (2) Fever Current visit: Yes Status: Acute Category: Medical Code(s): R50.9 - Fever, unspecified (3) Coronary arteriosclerosis Current visit: No Status: Chronic Category: Medical Code(s): I25.10 - Atherosclerotic heart disease of [place] coronary artery without angina pectoris (4) Diabetes mellitus Current visit: No Status: Chronic Qualifiers: Diabetes mellitus type: type 2 Diabetes mellitus [employer] insulin use: without 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 Diabetes mellitus complication status: with neurologic complications Diabetes mellitus complication detail: with polyneuropathy Qualified Code(s): E11.42 - Type 2 diabetes mellitus with diabetic polyneuropathy Category: Medical Code(s): E11.9 - Type 2 diabetes mellitus without complications (5) 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 Current visit: No Status: Chronic Category: Medical Code(s): E08.621 - Diabetes mellitus due to underlying condition with foot ulcer; L97.519 - Non- pressure chronic ulcer of other part of right foot with unspecified severity (6) History of CVA (cerebrovascular accident) Current visit: No Status: Chronic Category: Medical Code(s): Z86.73 - Personal history of transient ischemic attack (TIA), and cerebral infarction without residual deficits (7) Hyperlipidemia Current visit: No Status: Chronic Qualifiers: Hyperlipidemia type: unspecified Qualified Code(s): E78.5 - Hyperlipidemia, unspecified Category: Medical Code(s): E78.5 - Hyperlipidemia, unspecified (8) Hypertensive heart disease without heart failure Current visit: No Status: Chronic Category: Medical Code(s): I11.9 - Hypertensive heart disease without heart failure (9) Left spastic hemiparesis Current visit: No Status: Chronic Category: Medical Code(s): G81.14 - Spastic hemiplegia affecting left nondominant side (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
--- NOTE | 2018-04-18 08:29 | Progress Note ---
Subjective Date: 04/18/18 Time: 08:27 Principal diagnosis: Right toe ischemia Interval history: 52-year-old white female in bed in no acute distress. Denies chest pain or shortness of breath. Patient underwent a right superficial femoral artery and popliteal artery angioplasty with drug-eluting balloon yesterday. Plans are for orthopedic consult today for right third toe amputation. Exam Vital signs and Labs for Last 24 Hours: Temp Pulse Resp BP Pulse Ox 98.4 F 75 16 130/87 96 04/18/18 04:00 04/18/18 04:00 04/18/18 04:00 04/18/18 04:00 04/18/18 04:00 Laboratory Results - last 24 hr 04/17/18 10:13: APTT 66.1 H* 04/17/18 10:59: POC Glucose 293 H 04/17/18 12:11: Activated Clotting Time 310 H* 04/17/18 16:41: POC Glucose 359 H* 04/17/18 21:38: POC Glucose 363 H* 04/18/18 06:07: POC Glucose 366 H* 04/18/18 06:46: APTT 62.7 H* I & O for Last 24 hours: Intake & Output 04/15/18 04/16/18 04/17/18 04/18/18 11:59 11:59 11:59 11:59 Intake Total 1603 / 1603 369 / 369 1300 / 1300 720 / 720 Output Total 50 / 50 2500 / 2500 2600 / 2600 Balance 1553 / 1553 -2131 / -2131 -1300 / -1300 720 / 720 Weight 172 lb 1 oz 173 lb 3 oz 175 lb 14.862 oz 175 lb 14.862 oz - *Routine Respiratory Exam Present: CTA bilaterally. Absent: accessory muscle use, rales, rhonchi, wheezes - *Routine Cardiovascular Exam Present: RRR. Absent: murmur, gallop, rubs - *Routine Abdominal Exam Present: soft. Absent: tenderness, distended, guarding - *Routine Extremities Exam Present: edema. Absent: calf tenderness 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 Status: Chronic Current Visit: No (6) History of CVA (cerebrovascular accident) Status: Chronic Current Visit: No (7) Hyperlipidemia Status: Chronic Current Visit: No (8) Hypertensive heart disease without heart failure Status: Chronic Current Visit: No (9) Left spastic hemiparesis Status: Chronic Current Visit: No (10) care home 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 Status: Chronic Current Visit: No (11) Peripheral arterial occlusive disease Status: Chronic Current Visit: No Assessment and Plan for All Diagnoses:: Clinically stable from a cardiac standpoint to proceed with orthopedic surgery.
--- NOTE | 2018-04-18 11:09 | Consult Report ---
*Admission Date: 04/14/18 *Chief complaint: Gangrene third toe, right foot *History of present illness: Ms. Nieto is a 52-year-old diabetic female who presents for evaluation of right foot gangrene. Patient has been treated by cardiology and podiatry outpatient in the past. She has history of peripheral arterial disease resulting in a left below-knee amputation and right fourth digit amputation. She was admitted 04/14/[address] Alva was started on a heparin drip and intervention via the cardiology team today. 11/21/17 vascular studies done to access CONOR/toe pressures to evaluate for chronic nonhealing right third toe ulcer, diabetes, history of PAD. CONOR R: 1.7 elevated indicating calcification/vessel hardening; TBI R: 0.3 small vessel disease; Diminished pulses. Dr. Padilla performed a right lower extremity runoff 04/17/18. Procedures: 1. Left femoral arterial access 2. Catheter placement in the abdominal aorta 3. Abdominal aortography 4. Positioning of the catheter in the abdominal aorta 5. No lateral iliofemoral angiogram with runoff to the foot 6. Drug-eluting balloon angioplasty to the right popliteal artery and right superficial femoral artery Impression: 1. Severe stenosis in the right superior femoral artery and popliteal artery successfully treated with a drug-eluting balloon. 2. Three-vessel runoff below the knee, the foot has severe small vessel diffuse diabetic vasculopathic disease. Review of Systems - *Neurologic Reports numbness, Reports tingling/numbness/burning sensations, Reports weakness, Denies headache(s), Denies dizziness [facility] History I have reviewed the patient's past medical history: Yes Medical History: Reports:: Cancer, Coronary Artery Disease, Cerebrovascular Accident, Diabetes Mellitus Type 2, Gall Bladder Disease, Hyperlipidemia, Hypertension, MRSA, Myocardial Infarction, Peripheral Vascular Disease, Renal D isease, Renal Insufficiency, Transient Ischemic Attacks (TIA), Urinary Tract Infection Denies:: Asthma, Chronic Obstructive Pulmonary Disease (COPD), Diabetes Mellitus Type 1, Internal Pacemaker Other Medical History: Reports: Chemotherapy, Sinus Problems Laterality Cases: Right: Mastectomy, Other, Bilateral: Carpal Tunnel Release Other Surgeries: Yes: Cancer Surgery, Cardiac Catheterization, Cardiac Surgery, Cholecystectomy, , Open Heart Surgery, Tubal Ligation, Other. No: Pacemaker Amputation: Yes (Left BKA 06/23/14; 4th toe right foot 2016) - *Social History Educational Level: Attended College Smoking Status: Never smoker # Packs/Day (cigarettes): 0 #Yrs smoked (if former smoker): 0 Alcohol Intake: never Alcohol Intake Frequency:: other Substance Use Type: denies use Occupational Status: unemployed, disabled Housing: house Household Members: family - Psychiatric History Expresses thoughts of harming self/others: None Suicide Plan Description: No Plan *Family Hx:: Cancer, Diabetes, Heart Attack, Hyperlipidemia, Hypertension Meds Home Medications Medication Instructions Recorded Confirmed Type amiloride 5 mg tablet 10 mg PO DAILY 09/22/17 04/14/18 History aspirin 25 mg-dipyridamole 200 mg 1 cap PO BID 09/22/17 04/14/18 History capsule,ext.release 12 hr multiphase baclofen 10 mg tablet 10 mg PO DAILY 09/22/17 04/14/18 History clopidogrel 75 mg tablet 75 mg PO DAILY 09/22/17 04/14/18 History glimepiride 2 mg tablet 2 mg PO DAILY 09/22/17 04/15/18 History linagliptin 2.5 mg-metformin 1,000 1 tab PO BID 09/22/17 04/14/18 History mg tablet metolazone 5 mg tablet 5 mg PO DAILY 09/22/17 04/14/18 History Loratadine [Allergy] 10 mg PO DAILY 11/19/17 04/14/18 History Baclofen [Lioresal 10mg tablet] 20 mg PO HS 11/20/17 04/14/18 History Citalopram Hydrobromide [Celexa 20 mg PO DAILY 11/20/17 04/14/18 History 20mg Tablet] Insulin Lispro [Humalog Kwikpen 0 unit SQ AC 11/20/17 04/14/18 History U-100] Donepezil HCl [Aricept 5mg] 5 mg PO HS 04/14/18 04/14/18 History Insulin Detemir [Levemir 45 unit SQ DAILY 04/14/18 04/14/18 History 100units/mL 3mL flexpen] Potassium Chloride 60 meq PO TID 04/14/18 04/14/18 History Rosuvastatin Calcium [Crestor] 20 mg PO DAILY 04/14/18 04/14/18 History Spironolactone [Aldactone 25mg 25 mg PO DAILY 04/14/18 04/14/18 History Tab] Furosemide [Furosemide 40MG tAB] 40 mg PO DAILY 04/15/18 04/15/18 History Warfarin Sodium 5 mg PO CINDYTBRIDGETSA 04/17/18 04/17/18 History Warfarin Sodium 7.5 mg PO WE 04/17/18 04/17/18 History Allergies Allergy/AdvReac Type Severity Reaction Status Date / Time azithromycin Allergy Intermediate S-DIFF. Verified 04/11/18 11:42 BREATHING daptomycin [DAPTOMYCIN] Allergy Intermediate I-RASH/ITCH Verified 04/11/18 11:42 ING levofloxacin Allergy Intermediate I-RASH Verified 04/11/18 11:42 Penicillins Allergy Intermediate I-HIVES Verified 04/11/18 11:42 Exam Vital signs and Labs for Last 24 Hours: Temp Pulse Resp BP Pulse Ox 98.0 F 68 20 146/42 H 94 L 04/18/18 09:04 04/18/18 09:04 04/18/18 09:04 04/18/18 09:04 04/18/18 09:04 Laboratory Results - last 24 hr 04/17/18 10:59: POC Glucose 293 H 04/17/18 12:11: Activated Clotting Time 310 H* 04/17/18 16:41: POC Glucose 359 H* 04/17/18 21:38: POC Glucose 363 H* 04/18/18 06:07: POC Glucose 366 H* 04/18/18 06:46: APTT 62.7 H* 04/18/18 10:21: POC Glucose 295 H I & O for Last 24 hours: Intake & Output 04/15/18 04/16/18 04/17/18 04/18/18 11:59 11:59 11:59 11:59 Intake Total 1603 / 1603 369 / 369 1300 / 1300 720 / 720 Output Total 50 / 50 2500 / 2500 2600 / 2600 Balance 1553 / 1553 -2131 / -2131 -1300 / -1300 720 / 720 Weight 172 lb 1 oz 173 lb 3 oz 175 lb 14.862 oz 175 lb 14.862 oz Results - Labs Result Diagrams: 04/17/18 06:18 04/17/18 06:18 Labs: Abnormal lab results 10/29/18 10/29/18 10/29/18 Range/Units 10:59 12:11 16:41 APTT (23.6-34.0) seconds Activated Clotting Time 310 H* (74-125) SEC POC Glucose 293 H 359 H* (70-110) 04/17/18 04/18/18 04/18/18 Range/Units 21:38 06:07 06:46 APTT 62.7 H* (23.6-34.0) seconds Activated Clotting Time (74-125) SEC POC Glucose 363 H* 366 H* (70-110) 04/18/18 Range/Units 10:21 APTT (23.6-34.0) seconds Activated Clotting Time (74-125) SEC POC Glucose 295 H (70-110) H & H 04/14/18 04/17/18 Range/Units 12:55 06:18 Hgb 11.5 L 11.1 L (12.2-16.2) g/dL Hct 36.5 L 34.6 L (37.0-47.0) % Coagulation 04/14/18 04/17/18 Range/Units 12:55 07:50 INR 0.93 0.97 (0.9-1.1) All other labs normal. Assessment and Plan (1) Ischemic foot Current visit: Yes Status: Acute Category: Medical Code(s): I99.8 - Other disorder of circulatory system (2) Fever Current visit: Yes Status: Acute Category: Medical Code(s): R50.9 - Fever, unspecified (3) Coronary arteriosclerosis Current visit: No Status: Chronic Category: Medical Code(s): I25.10 - Atherosclerotic heart disease of [place] coronary artery without angina pectoris (4) Diabetes mellitus Current visit: No Status: Chronic Qualifiers: Diabetes mellitus type: type 2 Diabetes mellitus 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 insulin use: without 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 use Diabetes mellitus complication status: with neurologic complications Diabetes mellitus complication detail: with polyneuropathy Qualified Code(s): E11.42 - Type 2 diabetes mellitus with diabetic polyneuropathy Category: Medical Code(s): E11.9 - Type 2 diabetes mellitus without complications (5) 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 Current visit: No Status: Chronic Category: Medical Code(s): E08.621 - Diabetes mellitus due to underlying condition with foot ulcer; L97.519 - Non- pressure chronic ulcer of other part of right foot with unspecified severity (6) History of CVA (cerebrovascular accident) Current visit: No Status: Chronic Category: Medical Code(s): Z86.73 - Personal history of transient ischemic attack (TIA), and cerebral infarction without residual deficits (7) Hyperlipidemia Current visit: No Status: Chronic Qualifiers: Hyperlipidemia type: unspecified Qualified Code(s): E78.5 - Hyperlipidemia, unspecified Category: Medical Code(s): E78.5 - Hyperlipidemia, unspecified (8) Hypertensive heart disease without heart failure Current visit: No Status: Chronic Category: Medical Code(s): I11.9 - Hypertensive heart disease without heart failure (9) Left spastic hemiparesis Current visit: No Status: Chronic Category: Medical Code(s): G81.14 - Spastic hemiplegia affecting left nondominant side (10) [employer]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 Patient was seen by Dr. Calloway, sintering press operator yesterday and she has recommended dislocation of the right third toe at the level of the MP joint. I have discussed the diagnosis, natural history and management options including both nonsurgical and surgical. The patient opted for amputation of the right third toe. I have discussed the procedure, risks and benefits and alternatives. The complications discussed include but are not limited to infection, injury to nerves and blood vessels, tender scar, DVT/PE, phantom pain, CRPS (complex regional pain syndrome- pain, sensory and temperature changes, swelling and stiffness), incomplete relief of pain, altered gait, altered weightbearing and pressure sores over the foot, displacement of the other toes, incomplete return of function, and likely need for further surgery in future including amputation at a proximal level and also the risks of anesthesia including heart attack, stroke, and even . I have discussed how there is a real possibility of loss of use of the limb, loss of the limb or loss of life itself. I have also explained how additional surgery may be required if there are any complications or if the infection cannot be cleared with the first surgery. I have told the patient that we may have to perform the surgery as a 2-stage procedure with a delayed wound closure if the tissue appear unhealthy at surgery for primary closure. We have also discussed the postoperative management, recovery and rehabilitation and the likely need for physical therapy, the possibility of stiffness, osteomyelitis, chronic pain and we've also discussed the option of nonsurgical treatment. The patient and her mother understand and have asked appropriate questions. All their questions were answered and they verbalized a good understanding. Patient desires to proceed with the amputation of the right third toe. Patient understood the risks and no guarantees or assurances were given or implied. Recommend holding off heparin for at least 4 hours prior to surgery if it is safe to do so from medical/cardiac standpoint. I am planning to proceed with the surgery later this afternoon.
--- NOTE | 2018-04-18 14:53 | Progress Note ---
[facility] Anesthesia Checklist - Patient Identification Patient Identification: Arm Band, Verbal (Name & ) - Structural Data Admitted From: Inpatient Planned Operative Procedure/s: r foot 3rd toe amp Consent for Planned Operative Procedure(s) Verified: Yes Verified Documents: Surgical Consent, History and Physical - NPO Status Verified Time NPO: 00:00 - Additional verifications Patient : No Anesthesia Reactions: No Hx Blood Transfusions: No Blood Transfusion Reaction: No Cephalosporin Allergy: No Previous Colonoscopy: No - Cardiovascular Assessment Heart Sounds: S1 & S2 Pulse Strength: Baseline Pulse Rhythm: Regular Peripheral Edema: No - Airway Assessment Dentition: Good Dentition - Neurological Assessment Level of Consciousness: Awake, Alert, Appropriate Hx Seizures: No Numbness or tingling in extremities: No - Anesthesia Plan Anesthesia Risk discussed: Yes Anesthesia Plan: Verified ASA Class: III Anesthesia Type: General [facility] History I have reviewed the patient's past medical history: Yes Medical History: Reports:: Cancer, Coronary Artery Disease, Cerebrovascular Accident, Diabetes Mellitus Type 2, Gall Bladder Disease, Hyperlipidemia, Hypertension, MRSA, Myocardial Infarction, Peripheral Vascular Disease, Renal Disease, Renal Insufficiency, Transient Ischemic Attacks (TIA), Urinary Tract Infection Denies:: Asthma, Chronic Obstructive Pulmonary Disease (COPD), Diabetes Mellitus Type 1, Internal Pacemaker Other Medical History: Reports: Chemotherapy, Sinus Problems Laterality Cases: Right: Mastectomy, Other, Bilateral: Carpal Tunnel Release Other Surgeries: Yes: Cancer Surgery, Cardiac Catheterization, Cardiac Surgery, Cholecystectomy, , Open Heart Surgery, Tubal Ligation, Other. No: Pacemaker Amputation: Yes (Left BKA 06/23/14; 4th toe right foot 2016) Fractures: No - *Social History Educational Level: Attended College Smoking Status: Never smoker # Packs/Day (cigarettes): 0 #Yrs smoked (if former smoker): 0 Alcohol Intake: never Alcohol Intake Frequency:: other Substance Use Type: denies use Occupational Status: unemployed, disabled Housing: house Household Members: family - Psychiatric History Expresses thoughts of harming self/others: None Suicide Plan Description: No Plan *Family Hx:: Cancer, Diabetes, Heart Attack, Hyperlipidemia, Hypertension
--- NOTE | 2018-04-18 17:19 | Progress Note ---
[facility] Anesthesia Record Part I Intake, IV Amount: 800 Estimated blood loss (mL): 10 Urine output (mL): 0 Blood Products used (#): none Blood Pressure: 144/78 SaO2: 90 Pulse Rate: 83 Respiratory Rate: 18 Temperature: 97.0 F Patient is:: Drowsy, Nasal O2, Stable Stable to PACU at:: 17:15
--- NOTE | 2018-04-18 17:20 | Progress Note ---
[facility] Anesthesia Record Part II Discharge Time: 17:45 Destination: Medical Surgical Department PACU nurse assessment reviewed?: Yes Patient Condition:: Good Anesthesia Complications:: None
--- NOTE | 2018-04-18 17:42 | Operative Note ---
Date of procedure: 04/18/18 Pre-op Diagnosis:: Gangrene third toe, right foot Post-op Diagnosis:: Same Procedure performed:: Amputation (MTP joint disarticulation) third toe, right foot Surgeon:: Blayne Drew MD ORACLE DBA:: Sabino Humphreys Anesthesia: LMA Estimated blood loss (mL): 5 Clinical Note:: The patient is a 52-year-old female who has multiple comorbidities including diabetes, peripheral vascular disease, and obesity. She has had a history of CVAs in the past and is status post LEFT below-knee amputation from her peripheral vascular disease. She presents with a RIGHT third toe which is gangrenous and is failed to respond to conservative management. The pulp of the toe is involved with diffuse necrotic tissue and there is desquamation of the s kin. Amputation of this gangrenous and infected third toe on the RIGHT foot is indicated to prevent proximal progression of the infection and to try to prevent a higher level of amputation. Operative note:: The patient was taken to the operating room and placed supine on the operating table. All the bony prominences were appropriately padded. A general anesthesia was administered by the anesthesia team. W the leg was then prepped and draped in the usual sterile fashion. A calf tourniquet applied and the tourniquet inflated to 300 mmHg. Please see the nursing records for the total tourniquet time. A "tennis racket" type incision was carefully made sparing as much tissue as possible for later closure. We then identified the MTP joint and incised the capsule, and disarticulated the distal toe through the MTP. Electrocautery was used as needed to obtain hemostasis. We then removed the specimen and took cultures for cultures and sensitivities both aerobic and anaerobic. We then deflated the tourniquet ensured adequate hemostasis, and closed with a combination of 3-0 Vicryl and 4-0 nylon sutures. Sterile dressings were applied and the patient taken to the post anesthesia recovery room in good condition. She tolerated the procedure well there were no immediate complications. Following a period of observation in the PACU, patient was transferred back to the floor in a stable condition. Condition: stable Disposition: floor Specimens:: 1. Amputated toe for histopathology 2. Aerobic and anaerobic wound swabs for culture and sensitivity Complications:: None
--- NOTE | 2018-04-19 07:53 | Progress Note ---
<Keisha Pedersen - Last Filed: 04/19/18 07:54> Internal Medicine - PN: Subj *Date: 04/19/18 *Time: 07:30 Interval history: Patient had surgical procedure yesterday. Procedure performed:: Amputation (MTP joint disarticulation) third toe, right foot. She is glad it is over with. She did sleep last night. She denies any foot pain and chest pain. She is breathing without problems. She is eating her breakfast and enjoying. Bowels are moving. Blood sugars remain elevated and continues with high intensity sliding scale. Exam Vital signs and Labs for Last 24 Hours: Temp Pulse Resp BP Pulse Ox 97.9 F 67 18 125/58 L 95 04/19/18 07:48 04/19/18 07:48 04/19/18 07:48 04/19/18 07:48 04/19/18 07:48 Laboratory Results - last 24 hr 04/18/18 10:21: POC Glucose 295 H 04/18/18 18:19: POC Glucose 161 H 04/18/18 20:03: POC Glucose 330 H* 04/19/18 05:53: POC Glucose 344 H* I & O for Last 24 hours: Intake & Output 04/16/18 04/17/18 04/18/18 04/19/18 11:59 11:59 11:59 11:59 Intake Total 369 / 369 1300 / 1300 720 / 720 1699 / 1699 Output Total 2500 / 2500 2600 / 2600 1400 / 1400 Balance -2131 / -2131 -1300 / -1300 720 / 720 299 / 299 Weight 173 lb 3 oz 175 lb 14.862 oz 175 lb 14.862 oz Microbiology Reports for the Last 24 Hours: Microbiology 04/18/18 Unknown Toe,Right Third Gram Stain - Final - Constitutional no acute distress Comments: Sitting up in bed eating her breakfast - *Routine Respiratory Exam Present: CTA bilaterally - *Routine Cardiovascular Exam Present: RRR - *Routine Abdominal Exam Present: soft, normoactive bowel sounds. Absent: tenderness - *Routine Extremities Exam Absent: edema Comments: Right foot with dressing clean, dry and intact. No edema. Can wiggle toes. 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 oil heaterman insulin use: without usp use Diabetes mellitus complication status: with neurologic complications Diabetes mellitus complication detail: with polyneuropathy Qualified Code(s): E11.42 - Type 2 diabetes mellitus with diabetic polyneuropathy Category: Medical Code(s): E11.9 - Type 2 diabetes mellitus without complications (5) 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 Current visit: No Status: Chronic Category: Medical Code(s): E08.621 - Diabetes mellitus due to underlying condition with foot ulcer; L97.519 - Non- pressure chronic ulcer of other part of right foot with unspecified severity (6) History of CVA (cerebrovascular accident) Current visit: No Status: Chronic Category: Medical Code(s): Z86.73 - Personal history of transient ischemic attack (TIA), and cerebral infarction without residual deficits (7) Hyperlipidemia Current visit: No Status: Chronic Qualifiers: Hyperlipidemia type: unspecified Qualified Code(s): E78.5 - Hyperlipidemia, unspecified Category: Medical Code(s): E78.5 - Hyperlipidemia, unspecified (8) Hypertensive heart disease without heart failure Current visit: No Status: Chronic Category: Medical Code(s): I11.9 - Hypertensive heart disease without heart failure (9) Left spastic hemiparesis Current visit: No Status: Chronic Category: Medical Code(s): G81.14 - Spastic hemiplegia affecting left nondominant side (10) [facility] 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 Current visit: No Status: Chronic Category: Medical Code(s): Z79.01 - oil heaterman (current) use of 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 (11) Peripheral arterial occlusive disease Current visit: No Status: Chronic Category: Medical Code(s): I77.9 - Disorder of arteries and arterioles, unspecified - Assessment and plan all Dx Assessment and Plan for all problems:: Wound care as per Dr. Drew. Otherwise continue current care. <Shawn Alva - Last Filed: 04/19/18 08:14> Exam Vital signs and Labs for Last 24 Hours: Temp Pulse Resp BP Pulse Ox 97.9 F 67 18 125/58 L 95 04/19/18 07:48 04/19/18 07:48 04/19/18 07:48 04/19/18 07:48 04/19/18 07:48 Laboratory Results - last 24 hr 04/18/18 10:21: POC Glucose 295 H 04/18/18 18:19: POC Glucose 161 H 04/18/18 20:03: POC Glucose 330 H* 04/19/18 05:53: POC Glucose 344 H* I & O for Last 24 hours: Intake & Output 04/16/18 04/17/18 04/18/18 04/19/18 11:59 11:59 11:59 11:59 Intake Total 369 / 369 1300 / 1300 720 / 720 1699 / 1699 Output Total 2500 / 2500 2600 / 2600 1400 / 1400 Balance -2131 / -2131 -1300 / -1300 720 / 720 299 / 299 Weight 173 lb 3 oz 175 lb 14.862 oz 175 lb 14.862 oz Microbiology Reports for the Last 24 Hours: Microbiology 04/18/18 Unknown Toe,Right Third Gram Stain - Final Assessment and Plan (1) Ischemic foot Current visit: Yes Status: Acute Category: Medical Code(s): I99.8 - Other disorder of circulatory system (2) Fever Current visit: Yes Status: Acute Category: Medical Code(s): R50.9 - Fever, unspecified (3) Coronary arteriosclerosis Current visit: No Status: Chronic Category: Medical Code(s): I25.10 - Atherosclerotic heart disease of [place] coronary artery without angina pectoris (4) Diabetes mellitus Current visit: No Status: Chronic Qualifiers: Diabetes mellitus type: type 2 Diabetes mellitus usp insulin use: without oil heaterman use Diabetes mellitus complication status: with neurologic complications Diabetes mellitus complication detail: with polyneuropathy Qualified Code(s): E11.42 - Type 2 diabetes mellitus with diabetic [place] Category: Medical Code(s): E11.9 - Type 2 diabetes mellitus without complications (5) 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 Current visit: No Status: Chronic Category: Medical Code(s): E08.621 - Diabetes mellitus due to underlying condition with foot ulcer; L97.519 - Non- pressure chronic ulcer of other part of right foot with unspecified severity (6) History of CVA (cerebrovascular accident) Current visit: No Status: Chronic Category: Medical Code(s): Z86.73 - Personal history of transient ischemic attack (TIA), and cerebral infarction without residual deficits (7) Hyperlipidemia Current visit: No Status: Chronic Qualifiers: Hyperlipidemia type: unspecified Qualified Code(s): E78.5 - Hyperlipidemia, unspecified Category: Medical Code(s): E78.5 - Hyperlipidemia, unspecified (8) Hypertensive heart disease without heart failure Current visit: No Status: Chronic Category: Medical Code(s): I11.9 - Hypertensive heart disease without heart failure (9) Left spastic hemiparesis Current visit: No Status: Chronic Category: Medical Code(s): G81.14 - Spastic hemiplegia affecting left nondominant side (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
--- NOTE | 2018-04-19 13:39 | Progress Note ---
Subjective Date: 04/19/18 Time: 12:00 Principal diagnosis: Right toe ischemia PN: Obj Ex Vital signs: Temp Pulse Resp BP Pulse Ox 97.9 F 67 18 125/58 L 95 04/19/18 07:48 04/19/18 07:48 04/19/18 07:48 04/19/18 07:48 04/19/18 07:48 Narrative: Laboratory Results - last 24 hr 04/18/18 18:19: POC Glucose 161 H 04/18/18 20:03: POC Glucose 330 H* 04/19/18 05:53: POC Glucose 344 H* 04/19/18 11:46: POC Glucose 326 H* Progress Note: A&P (1) Ischemic foot Status: Acute Current Visit: Yes (2) Fever Status: Acute Current Visit: Yes (3) Coronary arteriosclerosis Status: Chronic Current Visit: No (4) Diabetes mellitus Status: Chronic Current Visit: No (5) 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 Status: Chronic Current Visit: No (6) History of CVA (cerebrovascular accident) Status: Chronic Current Visit: No (7) Hyperlipidemia Status: Chronic Current Visit: No (8) Hypertensive heart disease without heart failure Status: Chronic Current Visit: No (9) Left spastic hemiparesis Status: Chronic Current Visit: No (10) longterm 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 Status: Chronic Current Visit: No (11) Peripheral arterial occlusive disease Status: Chronic Current Visit: No
[2018-04-20 06:46] LABS: Anion Gap 13.5 mEq/L (5-15); Calcium 8.3 mg/dL (8.5-10.1); Potassium 4.5 mmoL/L (3.5-5.1)
[2018-04-20 06:51] LABS: Basophils % 0.4 % (0.1-2.0); Eosinophils # 0.4 K/mm3 (0.0-0.4); Eosinophils % 3.6 % (0.1-12.0); Hematocrit 33.2 % (37.0-47.0); Hemoglobin 10.5 g/dL (12.2-16.2); Lymphocytes # 2.5 K/mm3 (0.7-4.5); Lymphocytes % 24.6 K/mm3 (10-50); Mean Corpuscular HGB Conc 31.7 g/dL (31.8-35.4); Mean Corpuscular Hemoglobin 26.9 pg (27.0-31.2); Mean Corpuscular Volume 84.8 fl (81-99); Mean Platelet Volume 7.9 fl (7.4-10.4); Monocytes # 0.7 K/mm3 (0.1-1.0); Monocytes % 6.5 % (1.7-9.3); Neutrophils # 6.6 K/mm3 (1.8-7.8); Platelet Count 263 K/mm3 (142-424); Red Blood Count 3.91 M/mm3 (4.20-5.40); Red Cell Distribution Width 17.8 % (11.5-17.5); White Blood Count 10.1 K/mm3 (4.8-10.8)
--- NOTE | 2018-04-20 08:08 | Progress Note ---
<Jennie Toth - Last Filed: 04/20/18 08:05> Internal Medicine - PN: Subj *Date: 04/20/18 *Time: 07:50 Interval history: Pt is sitting up in wheelchair watching tv with family present. She has no complaints. She denies any pain, chest pain, or SOB. She is eating well. She reports her bowels moved this morning. Exam Vital signs and Labs for Last 24 Hours: Temp Pulse Resp BP Pulse Ox 98.5 F 84 20 143/74 H 95 04/20/18 07:58 04/20/18 07:58 04/20/18 07:58 04/20/18 07:58 04/20/18 07:58 Laboratory Results - last 24 hr 04/19/18 11:46: POC Glucose 326 H* 04/19/18 16:51: POC Glucose 365 H* 04/19/18 20:10: POC Glucose 414 H* 04/20/18 06:00: POC Glucose 337 H* 04/20/18 06:28: WBC 10.1, RBC 3.91 L, Hgb 10.5 L, Hct 33.2 L, MCV 84.8, MCH 26.9 L, MCHC 31.7 L, RDW 17.8 H, Plt Count 263, MPV 7.9, Neut % (Auto) 65.0, Lymph % (Auto) 24.6, Tripp % (Auto) 6.5, Eos % (Auto) 3.6, Baso % (Auto) 0.4, Neut # (Auto) 6.6, Lymph # (Auto) 2.5, Tripp # (Auto) 0.7, Eos # (Auto) 0.4, Baso # (Auto) 0.0 04/20/18 06:28: Sodium 132 L, Potassium 4.5, Chloride 99, Carbon Dioxide 24, Anion Gap 13.5, BUN 25 H, Creatinine 1.21 H, Estimated Creat Clear 70, Estimated GFR 47 L, Est GFR ( Amer) 57 L, Glucose 318 H, Calcium 8.3 L I & O for Last 24 hours: Intake & Output 04/17/18 04/18/18 04/19/18 04/20/18 11:59 11:59 11:59 11:59 Intake Total 1300 / 1300 720 / 720 1699 / 1699 1698 / 1698 Output Total 2600 / 2600 1400 / 1400 2700 / 2700 Balance -1300 / -1300 720 / 720 299 / 299 -1002 / -1002 Weight 175 lb 14.862 oz 175 lb 14.862 oz Microbiology Reports for the Last 24 Hours: Microbiology 04/18/18 Unknown Toe,Right Third Gram Stain - Final 04/18/18 Unknown Toe,Right Third Surgical Biopsy Culture - Preliminary NO GROWTH AFTER 24 HOURS 04/14/18 13:05 Blood Blood Culture - Final NO GROWTH AFTER 5 DAYS 04/14/18 12:55 Blood Blood Culture - Final NO GROWTH AFTER 5 DAYS - Constitutional no acute distress - *Routine HEENT Exam Head: Present: normocephalic, atraumatic ENT: Present: mucous membranes moist - *Routine Neck Exam Present: supple, full ROM - *Routine Respiratory Exam Comments: CTAB A&P - *Routine Cardiovascular Exam Present: RRR - *Routine Abdominal Exam Present: soft, normoactive bowel sounds. Absent: tenderness, distended, guarding, rigid, organomegaly, mass - *Routine Extremities Exam Comments: right foot dressing C/D/I with trace RLE edema; left BKA - *Routine Neurological Exam Present: alert, oriented X3, moving all extremities, normal speech Assessment and Plan (1) Ischemic foot Current visit: Yes Status: Acute Category: Medical Code(s): I99.8 - Other disorder of circulatory system (2) Fever Current visit: Yes Status: Acute Category: Medical Code(s): R50.9 - Fever, unspecified (3) Coronary arteriosclerosis Current visit: No Status: Chronic Category: Medical Code(s): I25.10 - Atherosclerotic heart disease of [place] coronary artery without angina pectoris (4) Diabetes mellitus Current visit: No Status: Chronic Qualifiers: Diabetes mellitus type: type 2 Diabetes mellitus alf insulin use: without alf use Diabetes mellitus complication status: with neurologic complications Diabetes mellitus complication detail: with polyneuropathy Qualified Code(s): E11.42 - Type 2 diabetes mellitus with diabetic polyneuropathy Category: Medical Code(s): E11.9 - Type 2 diabetes mellitus without complications (5) 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 Current visit: No Status: Chronic Category: Medical Code(s): E08.621 - Diabetes mellitus due to underlying condition with foot ulcer; L97.519 - Non-pressure chronic ulcer of other part of right foot with unspecified severity (6) History of CVA (cerebrovascular accident) Current visit: No Status: Chronic Category: Medical Code(s): Z86.73 - Personal history of transient ischemic attack (TIA), and cerebral infarction without residual deficits (7) Hyperlipidemia Current visit: No Status: Chronic Qualifiers: Hyperlipidemia type: unspecified Qualified Code(s): E78.5 - Hyperlipidemia, unspecified Category: Medical Code(s): E78.5 - Hyperlipidemia, unspecified (8) Hypertensive heart disease without heart failure Current visit: No Status: Chronic Category: Medical Code(s): I11.9 - Hypertensive heart disease without heart failure (9) Left spastic hemiparesis Current visit: No Status: Chronic Category: Medical Code(s): G81.14 - Spastic hemiplegia affecting left nondominant side (10) FDC 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 Current visit: No Status: Chronic Category: Medical Code(s): Z79.01 - FDC (current) use of 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 (11) Peripheral arterial occlusive disease Current visit: No Status: Chronic Category: Medical Code(s): I77.9 - Disorder of arteries and arterioles, unspecified - Assessment and plan all Dx Assessment and Plan for all problems:: Pt doing well and without complaint. Further per Dr. Alva. <Shawn Alva - Last Filed: 04/20/18 08:45> Exam Vital signs and Labs for Last 24 Hours: Temp Pulse Resp BP Pulse Ox 98.5 F 84 20 143/74 H 95 04/20/18 07:58 04/20/18 07:58 04/20/18 07:58 04/20/18 07:58 04/20/18 07:58 Laboratory Results - last 24 hr 04/19/18 11:46: POC Glucose 326 H* 04/19/18 16:51: POC Glucose 365 H* 04/19/18 20:10: POC Glucose 414 H* 04/20/18 06:00: POC Glucose 337 H* 04/20/18 06:28: WBC 10.1, RBC 3.91 L, Hgb 10.5 L, Hct 33.2 L, MCV 84.8, MCH 26.9 L, MCHC 31.7 L, RDW 17.8 H, Plt Count 263, MPV 7.9, Neut % (Auto) 65.0, Lymph % (Auto) 24.6, Tripp % (Auto) 6.5, Eos % (Auto) 3.6, Baso % (Auto) 0.4, Neut # (Auto) 6.6, Lymph # (Auto) 2.5, Tripp # (Auto) 0.7, Eos # (Auto) 0.4, Baso # (Auto) 0.0 04/20/18 06:28: Sodium 132 L, Potassium 4.5, Chloride 99, Carbon Dioxide 24, Anion Gap 13.5, BUN 25 H, Creatinine 1.21 H, Estimated Creat Clear 70, Estimated GFR 47 L, Est GFR ( Amer) 57 L, Glucose 318 H, Calcium 8.3 L I & O for Last 24 hours: Intake & Output 04/17/18 04/18/18 04/19/18 04/20/18 11:59 11:59 11:59 11:59 Intake Total 1300 / 1300 720 / 720 1699 / 1699 1698 / 1698 Output Total 2600 / 2600 1400 / 1400 2700 / 2700 Balance -1300 / -1300 720 / 720 299 / 299 -1002 / -1002 Weight 175 lb 14.862 oz 175 lb 14.862 oz Microbiology Reports for the Last 24 Hours: Microbiology 04/18/18 Unknown Toe,Right Third Gram Stain - Final 04/18/18 Unknown Toe,Right Third Surgical Biopsy Culture - Preliminary NO GROWTH AFTER 24 HOURS 04/14/18 13:05 Blood Blood Culture - Final NO GROWTH AFTER 5 DAYS 04/14/18 12:55 Blood Blood Culture - Final NO GROWTH AFTER 5 DAYS Assessment and Plan (1) Ischemic foot Current visit: Yes Status: Acute Category: Medical Code(s): I99.8 - Other disorder of circulatory system (2) Fever Current visit: Yes Status: Acute Category: Medical Code(s): R50.9 - Fever, unspecified (3) Coronary arteriosclerosis Current visit: No Status: Chronic Category: Medical Code(s): I25.10 - Atherosclerotic heart disease of [place] coronary artery without angina pectoris (4) Diabetes mellitus Current visit: No Status: Chronic Qualifiers: Diabetes mellitus type: type 2 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 alf use Diabetes mellitus complication status: with neurologic complications Diabetes mellitus complication detail: with polyneuropathy Qualified Code(s): E11.42 - Type 2 diabetes mellitus with diabetic polyneuropathy Category: Medical Code(s): E11.9 - Type 2 diabetes mellitus without complications (5) 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 Current visit: No Status: Chronic Category: Medical Code(s): E08.621 - Diabetes mellitus due to underlying condition with foot ulcer; L97.519 - Non- pressure chronic ulcer of other part of right foot with unspecified severity (6) History of CVA (cerebrovascular accident) Current visit: No Status: Chronic Category: Medical Code(s): Z86.73 - [place] history of transient ischemic attack (TIA), and cerebral infarction without residual deficits (7) Hyperlipidemia Current visit: No Status: Chronic Qualifiers: Hyperlipidemia type: unspecified Qualified Code(s): E78.5 - Hyperlipidemia, unspecified Category: Medical Code(s): E78.5 - Hyperlipidemia, unspecified (8) Hypertensive heart disease without heart failure Current visit: No Status: Chronic Category: Medical Code(s): I11.9 - Hypertensive heart disease without heart failure (9) Left spastic hemiparesis Current visit: No Status: Chronic Category: Medical Code(s): G81.14 - Spastic hemiplegia affecting left nondominant side (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 Current visit: No Status: Chronic Category: Medical Code(s): Z79.01 - predatory animal exterminator (current) use of 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 (11) Peripheral arterial occlusive disease Current visit: No Status: Chronic Category: Medical Code(s): I77.9 - Disorder of arteries and arterioles, unspecified (12) Non morbid obesity Current visit: Yes Status: Acute Category: Medical Code(s): E66.9 - Obesity, unspecified (13) BMI 33.0-33.9,adult Current visit: Yes Status: Acute Category: Medical Code(s): Z68.33 - Body mass index (BMI) 33.0-33.9, adult - Assessment and plan all Dx Assessment and Plan for all problems:: Saw patient, agree with above note. Discharge today, wound care per Dr. Drew, patient to continue Lovenox until her INR is over 2, will check INR at office vi sit in 5 days.
--- NOTE | 2018-04-20 12:18 | Progress Note ---
Subjective Date: 04/20/18 Time: 12:15 Principal diagnosis: Right toe ischemia PN: Obj Ex Vital signs: Temp Pulse Resp BP Pulse Ox 98.5 F 84 20 143/74 H 95 04/20/18 07:58 04/20/18 07:58 04/20/18 07:58 04/20/18 07:58 04/20/18 07:58 Progress Note: A&P (1) Ischemic foot Status: Acute Current Visit: Yes (2) Fever Status: Acute Current Visit: Yes (3) Coronary arteriosclerosis Status: Chronic Current Visit: No (4) Diabetes mellitus Status: Chronic Current Visit: No (5) 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 Status: Chronic Current Visit: No (6) History of CVA (cerebrovascular accident) Status: Chronic Current Visit: No (7) Hyperlipidemia Status: Chronic Current Visit: No (8) Hypertensive heart disease without heart failure Status: Chronic Current Visit: No (9) Left spastic hemiparesis Status: Chronic Current Visit: No (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
--- NOTE | 2018-04-21 22:06 | Discharge Summary ---
General - General Admission date:: 04/14/18 Discharge date: 04/20/18 HPI HPI: Ms. Nieto is a 52yo female with a previous left BKA who has had a wound on her right 3rd toe since November. Her mother states last night the tip of the toe turned black and she began having erythema extending from the toe up into her foot. She developed a fever of 102 and had chills last night. She presented to the office of [facility] today for evaluation and was admitted d/t an ischemic toe. She will be started on a heparin drip. She is scheduled to have a stent placed in the leg by Randy on Tuesday to supply better blood flow to the foot. Hospital Course Hospital Course: The patient was started on a heparin drip and pain control. A CXR was ordered and was normal. Blood cultures were ordered and were normal. She was seen by cardiology who felt she would need right lower extremity runoff with possible intervention of the right femoral artery. Her fever resolved and cardiology found severe stenosis in the right superior femoral artery and popliteal artery which was successfully treated with a drug-eluting balloon. There was three- vessel runoff below the knee, the foot had severe small vessel diffuse diabetic vasculopathic disease. Dr. Calloway was consulted for further management of the ischemic toe. She recommended to consult Dr. Drew but felt there would need to be a right 3rd toe amputation along with vancomycin 1g. Dr. Drew saw the patient and performed an amputation (MTP joint disarticulation) of the third toe on the right foot. The patient tolerated the procedure well. Her coumadin was resumed and she was stable to be discharged home on Lovenox until her INR is above 2. Dr. Drew added oral Bactrim DS 1 twice daily for 2 weeks and will f/u with her in his office. She will f/u at [facility] in 5 days to recheck INR. Objective Vital signs: Temp Pulse Resp BP Pulse Ox 98.5 F 84 20 143/74 H 95 04/20/18 07:58 04/20/18 07:58 04/20/18 07:58 04/20/18 07:58 04/20/18 07:58 Narrative: - Constitutional no acute distress - *Routine HEENT Exam Head: Present: normocephalic Eye: Present: EOMI, PERRL ENT: Present: mucous membranes moist - *Routine Neck Exam Present: supple. Absent: lymphadenopathy - *Routine Respiratory Exam Present: CTA bilaterally - *Routine Cardiovascular Exam Present: RRR - *Routine Abdominal Exam Present: soft, normoactive bowel sounds. Absent: tenderness - *Routine Extremities Exam Present: edema (trace pretibial edema of the RLE, left BKA) - *Routine Skin Exam Present: intact. Absent: rash Comments: right 3rd toe is black at the tip of the toe with erythema extending down the toe and onto the dorsum of the foot, warm to the touch and tender - *Routine Neurological Exam Present: alert, oriented X3 Results Labs on day of discharge: Preliminary micro results at discharge 04/18/18 Unknown Surgical Biopsy Culture - Preliminary Toe,Right Third NO GROWTH AFTER 72 HOURS DS: Diagnosis - Discharge Diagnosis (1) Ischemic foot Status: Acute (2) Fever Status: Acute (3) Coronary arteriosclerosis Status: Chronic (4) Diabetes mellitus Status: Chronic (5) 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 Status: Chronic (6) History of CVA (cerebrovascular accident) Status: Chronic (7) Hyperlipidemia Status: Chronic (8) Hypertensive heart disease without heart failure Status: Chronic (9) Left spastic hemiparesis Status: Chronic (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 Status: Chronic (11) Peripheral arterial occlusive disease Status: Chronic (12) Non morbid obesity Status: Acute (13) BMI 33.0-33.9,adult Status: Acute Discharge Plan - Patient Discharge Instructions ACTIVITY: Continue current activity DIET: continue same diet Patient Instructions: How to Care for a Surgical Wound, DI for Peripheral Vascular (Arterial) Disease, DI for Surgical Site Infection, Warfarin - Follow up Plan Follow up with: Shawn Alva MD [Primary Care Provider] - 04/25/18 Disposition: Home, Self-[facility] Medications: Home Medications Medication Instructions Recorded Confirmed Type amiloride 5 mg tablet 10 mg PO DAILY 09/22/17 04/14/18 History aspirin 25 mg-dipyridamole 200 mg 1 cap PO BID 09/22/17 04/14/18 History capsule,ext.release 12 hr multiphase baclofen 10 mg tablet 10 mg PO DAILY 09/22/17 04/14/18 History clopidogrel 75 mg tablet 75 mg PO DAILY 09/22/17 04/14/18 History glimepiride 2 mg tablet 2 mg PO DAILY 09/22/17 04/15/18 History linagliptin 2.5 mg-metformin 1,000 1 tab PO BID 09/22/17 04/14/18 History mg tablet metolazone 5 mg tablet 5 mg PO DAILY 09/22/17 04/14/18 History Loratadine [Allergy] 10 mg PO DAILY 11/19/17 04/14/18 History Baclofen [Lioresal 10mg tablet] 20 mg PO HS 11/20/17 04/14/18 History Citalopram Hydrobromide [Celexa 20 mg PO DAILY 11/20/17 04/14/18 History 20mg Tablet] Insulin Lispro [Humalog Kwikpen 0 unit SQ AC 11/20/17 04/14/18 History U-100] Donepezil HCl [Aricept 5mg] 5 mg PO HS 04/14/18 04/14/18 History Insulin Detemir [Levemir 45 unit SQ DAILY 04/14/18 04/14/18 History 100units/mL 3mL flexpen] Potassium Chloride 60 meq PO TID 04/14/18 04/14/18 History Rosuvastatin Calcium [Crestor] 20 mg PO DAILY 04/14/18 04/14/18 History Spironolactone [Aldactone 25mg 25 mg PO DAILY 04/14/18 04/14/18 History Tab] Furosemide [Furosemide 40MG tAB] 40 mg PO DAILY 04/15/18 04/15/18 History Warfarin Sodium 5 mg PO SUMOTUTHFRSA 04/17/18 04/17/18 History Warfarin Sodium 7.5 mg PO WE 04/17/18 04/17/18 History Prescriptions/Medication Reconciliation: New Enoxaparin Sodium [Lovenox 120mg/0.8mL syringe] 120 mg SQ DAILY #7 syringe Sulfamethoxazole/Trimethoprim [Bactrim DS tablet] 1 each PO BID #30 tablet Continue baclofen 10 mg tablet 10 mg PO DAILY amiloride 5 mg tablet 10 mg PO DAILY aspirin 25 mg-dipyridamole 200 mg capsule,ext.release 12 hr multiphase 1 cap PO BID linagliptin 2.5 mg-metformin 1,000 mg tablet 1 tab PO BID clopidogrel 75 mg tablet 75 mg PO DAILY metolazone 5 mg tablet 5 mg PO DAILY glimepiride 2 mg tablet 2 mg PO DAILY Loratadine [Allergy] 10 mg PO DAILY Citalopram Hydrobromide [Celexa 20mg Tablet] 20 mg PO DAILY Insulin Lispro [Humalog Kwikpen U-100] 0 unit SQ AC Spironolactone [Aldactone 25mg Tab] 25 mg PO DAILY Rosuvastatin Calcium [Crestor] 20 mg PO DAILY Potassium Chloride 60 meq PO TID Donepezil HCl [Aricept 5mg] 5 mg PO HS Insulin Detemir [Levemir 100units/mL 3mL flexpen] 45 unit SQ DAILY Warfarin Sodium 5 mg PO SUMOTUTHFRSA Baclofen [Lioresal 10mg tablet] 20 mg PO HS Furosemide [Furosemide 40MG tAB] 40 mg PO DAILY Warfarin Sodium 7.5 mg PO WE
== END 2018-04-20 15:15 | disposition home or self-care (01) ==
LOC: 2ND → OBSVTOIN 12:26
PROVIDERS: ADMIT Family Medicine; ATTEND Family Medicine

== ENCOUNTER → 2018-04-27 15:09 | Outpatient (CLI) | payer MEDICARE, MEDICAID, SELFPAY | PROVIDERS: Visit Provider Orthopaedic Surgery | DX: Z89.421 Acquired absence of other right toe(s) (principal) | CPT/HCPCS: 87070; 87077; 87186; 87205 ==

== ENCOUNTER → 2018-05-03 16:50 | Outpatient (CLI) | payer MEDICARE, MEDICAID, SELFPAY ==
[2018-05-03 23:07] LABS: INR 1.17 (0.9-1.1)
== END ==
PROVIDERS: Visit Provider Physician Assistant
DX: Z51.81 Encounter for therapeutic drug level monitoring (principal); Z79.01 Long term (current) use of 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
CPT/HCPCS: 36415; 85610

== ENCOUNTER → 2018-06-01 10:45 | Outpatient (CLI) | payer MEDICARE, MEDICAID, SELFPAY ==
--- NOTE | 2018-06-01 10:51 | XR_ITS ---
XR foot RT min 3V HISTORY: Follow-up amputation ITS.REASON: sp rt foot 3rd toe amputation ORDERING PHYSICIAN: Blayne Drew MD PATIENT AGE: 52 years COMPARISON: 03/30/2018 FINDINGS: There is been interval amputation at the third metatarsal phalangeal junction with an older amputation and fourth metatarsophalangeal junction. There is mild vascular calcification. No erosive changes are evident. IMPRESSION: Status post amputation at the third and fourth metatarsophalangeal junction with no acute finding
== END ==
PROVIDERS: PCP Family Medicine; Visit Provider Orthopaedic Surgery
DX: Z09 Encounter for follow-up examination after completed treatment for conditions other than malignant neoplasm (principal); Z89.421 Acquired absence of other right toe(s)
CPT/HCPCS: 73630

== ENCOUNTER → 2018-06-05 09:55 | Outpatient (CLI) | payer MEDICARE, MEDICAID, SELFPAY | PROVIDERS: Visit Provider Orthopaedic Surgery | DX: Z09 Encounter for follow-up examination after completed treatment for conditions other than malignant neoplasm (principal); Z89.421 Acquired absence of other right toe(s) | CPT/HCPCS: 87070; 87077; 87186; 87205 ==

== ENCOUNTER → 2018-07-06 08:41 | Outpatient (CLI) | payer MEDICARE, MEDICAID, SELFPAY ==
--- NOTE | 2018-07-06 08:44 | XR_ITS ---
XR foot RT min 3V HISTORY: ITS.REASON: follow up on 3rd toe RT foot amputation ORDERING PHYSICIAN: Blayne Drew MD PATIENT AGE: 52 years COMPARISON: 06/01/2018 FINDINGS: No change status post amputation at the third and fourth metatarsophalangeal joint. No bony erosive process or other significant anomalies. IMPRESSION: No change status post indication third and fourth metatarsophalangeal joints
== END ==
PROVIDERS: PCP Family Medicine; Visit Provider Orthopaedic Surgery
DX: Z89.421 Acquired absence of other right toe(s) (principal)
CPT/HCPCS: 73630

== ENCOUNTER 2018-07-13 10:30 | Outpatient (RCR) | payer MEDICARE, MEDICAID, SELFPAY ==
--- NOTE | 2018-05-01 11:13 | HMH.PTOPWND ---
Rehab Outpt Wound Evaluation Rehab OP Wound Evaluation Start: 05/01/18 11:05 Freq: Status: Active Protocol: Document 05/01/18 11:05 KIRKCHANTE (Rec: 05/01/18 11:13 ASHLEY [id number]) Electronically Signed By Jaret Herbert, PT 05/01/18 11:05 Subjective/History History History This is the initial OP wound care evaluation for Prema Nieto. Pt is a 52 y/o female referred to PT wound care s/p R foot toe amputation. Pt has had L BKA, and 2 R toe amputations. Pt reports wound on 3rd to began in summer, home dressing changes and cleaning were working until End march when infection set up and pt got osteo. Pt reports 3rd to amputation end of Mar 2018 Subjective Subjective no complaitns from pt Wound Problems/Impairments Impairments Problems/Impairmments Wound Care Needs Impaired Self Care/Self Management Prognosis Rehab Potential Fair Clinical Impression Consistent with Diagnosis Yes Short Term Goals Number of Weeks 6 Decrease Wound Area Yes: 25% Increase Red Granulation Tissue % Yes: 100% Halfway Goals Number of Weeks 12 Decrease Wound Area Yes: 50%+ Increase Red Granulation Tissue % Yes: 100% Patient to be Ind w/ Home Wound Care/ Yes Dressing Changes Outpatient Therapy Plan of Care Treatment Plan May Include Manual Therapy Techniques Yes Wound Care Yes Group Therapy for Medicare Yes Eval/Re-Eval Yes Frequency Times per week 2 Duration Number of Weeks 12 Addendums This patient is a candidate for social No or vocational rehab? Patient/Guardian verbally acknowledges Yes understanding of treatment program and consents to further treatment? Patient/Guardian verbally acknowledges Yes understanding of diagnosis, prognosis and goals for treatment? G -code Required Yes Eval Complexity PT Charges 68786 - Moderate Complexity G-Code Eligible PT/OT Current Status Other PT/OT Status PT/OT Current Status Modifier CM-At least 80% but less than 100% impaired, limited or restricted PT/OT Goal Status Other PT/OT Status PT/OT Goal Status Modifer CI-At least 1% but less
== END 2018-07-13 10:35 | disposition home or self-care (01) ==
LOC: PT 10:30
PROVIDERS: Visit Provider Orthopaedic Surgery
DX: Z89.421 Acquired absence of other right toe(s) (principal)
CPT/HCPCS: 97162; 97164; 97597

== ENCOUNTER → 2018-08-17 12:33 | Outpatient (CLI) | payer MEDICARE, MEDICAID, SELFPAY ==
[2018-08-17 13:18] LABS: Basophils % 0.5 % (0.1-2.0); Eosinophils # 0.2 K/mm3 (0.0-0.4); Eosinophils % 2.3 % (0.1-12.0); Hematocrit 40.7 % (37.0-47.0); Hemoglobin 12.7 g/dL (12.2-16.2); Lymphocytes # 2.5 K/mm3 (0.7-4.5); Lymphocytes % 34.4 % (10-50); Mean Corpuscular HGB Conc 31.2 g/dL (31.8-35.4); Mean Corpuscular Hemoglobin 27.9 pg (27.0-31.2); Mean Corpuscular Volume 89.6 fl (81-99); Mean Platelet Volume 8.4 fl (7.4-10.4); Monocytes # 0.4 K/mm3 (0.1-1.0); Monocytes % 4.9 % (1.7-9.3); Neutrophils # 4.2 K/mm3 (1.8-7.8); Neutrophils % 57.9 % (37.0-80.0); Platelet Count 245 K/mm3 (142-424); Red Blood Count 4.55 M/mm3 (4.20-5.40); Red Cell Distribution Width 16.4 % (11.5-17.5); White Blood Count 7.2 K/mm3 (4.8-10.8)
[2018-08-17 14:52] LABS: Alanine Aminotransferase 46 U/L (12-78); Albumin Level 3.5 gm/dL (3.4-5.0); Albumin/Globulin Ratio 0.8 (1.1-1.8); Alkaline Phosphatase 90 U/L (46-116); Anion Gap 15.6 mEq/L (5-15); Aspartate Amino Transferase 17 U/L (15-37); Bilirubin,Total 0.4 mg/dL (0.2-1.0); Blood Urea Nitrogen 28 mg/dL (7-18); Calcium 9.3 mg/dL (8.5-10.1); Carbon Dioxide 27 mmol/L (21.0-32.0); Chloride 98 mmol/L (98-107); Creatinine,Serum 1.16 mg/dL (0.55-1.02); Estimated Glomerular Filt Rate 49 ml/min (>60); GFR (African American) 60 ML/MIN (>60); Globulin 4.2 gm/dl (1.3-3.2); Glucose 368 mg/dL (74-106); Potassium 4.6 mmoL/L (3.5-5.1); Sodium 136 mmol/L (136-145); Total Protein,Serum 7.7 gm/dL (6.4-8.2)
[2018-08-17 14:56] LABS: C-Reactive Protein < 0.2 mg/L (0.0-0.9)
[2018-08-17 17:59] LABS: Hemoglobin A1C 9.1 % (0.0-7.0)
[2018-08-18 15:38] LABS: Erythrocyte Sedimentation Rate 35 mm/hr (0-20)
== END ==
PROVIDERS: Visit Provider Podiatrist
DX: Z98.890 Other specified postprocedural states (principal); E11.9 Type 2 diabetes mellitus without complications; N17.9 Acute kidney failure, unspecified
CPT/HCPCS: 36415; 80053; 83036; 85025; 85651; 86140

== ENCOUNTER → 2018-08-17 15:00 | Outpatient (CLI) | payer MEDICARE, MEDICAID, SELFPAY | PROVIDERS: Visit Provider Podiatrist | DX: T81.31XD Disruption of external operation (surgical) wound, not elsewhere classified, subsequent encounter (principal); E11.9 Type 2 diabetes mellitus without complications | CPT/HCPCS: 36415; 80053; 83036; 85025; 85651; 86140; 87070; 87077; 87186; 87205 ==

== ENCOUNTER → 2018-10-20 12:31 | Outpatient (CLI) | payer MEDICARE, MEDICAID, SELFPAY ==
[2018-10-20 13:18] LABS: Albumin Level 3.6 gm/dL (3.4-5.0); Anion Gap 13.9 mEq/L (5-15); Blood Urea Nitrogen 31 mg/dL (7-18); Calcium 9.1 mg/dL (8.5-10.1); Carbon Dioxide 28 mmol/L (21.0-32.0); Chloride 98 mmol/L (98-107); Estimated Glomerular Filt Rate 48 ml/min (>60); GFR (African American) 58 ML/MIN (>60); Glucose 256 mg/dL (74-106); Phosphorous 2.8 mg/dL (2.4-4.9); Potassium 3.9 mmoL/L (3.5-5.1); Sodium 136 mmol/L (136-145)
[2018-10-21 20:41] LABS: Calcium, Ionized 5.2 mg/dL (4.5-5.6); Parathyroid Hormone Intact 30 pg/mL (15-65); Vitamin D 25 Hydroxy 47.1 ng/mL (30.0-100.0)
== END ==
PROVIDERS: Visit Provider Internal Medicine Nephrology
DX: E87.6 Hypokalemia (principal)
CPT/HCPCS: 36415; 80069; 82330; 82652; 83970

== ENCOUNTER → 2018-10-23 14:45 | Outpatient (POV) | payer MEDICARE, MEDICAID, SELFPAY | PROVIDERS: Visit Provider Internal Medicine Nephrology | DX: Z00.00 Encounter for general adult medical examination without abnormal findings (principal) ==

== ENCOUNTER → 2018-11-16 08:27 | Day surgery (SDC) | payer MEDICARE, MEDICAID, SELFPAY ==
[2018-11-14 13:32] VITALS: BMI 33.7
[2018-11-16] VITALS (7 sets, daily range): BP systolic 113–163; BP diastolic 67–94; PULSE 73–86; RESP 16–20; TEMP 36.8; O2SAT 92–99; BMI 33.7
[2018-11-16 09:04] LABS: POC Glucose,Bedside 231 (70-110)
--- NOTE | 2018-11-16 09:10 | HMH.ANESCL ---
[facility] Anesthesia Checklist - Patient Identification Patient Identification: Arm Band, Verbal (Name & ) - Structural Data Admitted From: Home Planned Operative Procedure/s: Colonoscopy Consent for Planned Operative Procedure(s) Verified: Yes Verified Documents: Surgical Consent, History and Physical - NPO Status Verified Time NPO: 00:00 - Additional verifications Patient : No Anesthesia Reactions: No - Airway Assessment C-Spine Mobility Assessed: Yes TMJ Mobility Assessed: Yes Dentition: Poor Dentition (missing teeth) - Neurological Assessment Level of Consciousness: Awake, Alert, Appropriate, Follows Commands Hx Seizures: No Numbness or tingling in extremities: No - Anesthesia Plan Anesthesia Risk discussed: Yes Anesthesia Plan: Verified ASA Class: IV Anesthesia Type: [facility] History I have reviewed the patient's past medical history: Yes Medical History: Reports:: Cancer, Coronary Artery Disease, Cerebrovascular Accident, Diabetes Mellitus Type 2, Gall Bladder Disease, Hyperlipidemia, Hypertension, MRSA, Myocardial Infarction, Peripheral Vascular Disease, Renal Disease, Renal Insufficiency, Transient Ischemic Attacks (TIA), Urinary Tract Infection Denies:: Asthma, Chronic Obstructive Pulmonary Disease (COPD), Diabetes Mellitus Type 1, Internal Pacemaker, Lung Disease, Seizures *Have you ever received a pneumonia vaccine?: Yes *Have you received a flu vaccine this season?: No Other Medical History: Reports: Chemotherapy, Sinus Problems. Denies: Blood Transfusion Reaction Laterality Cases: Other Surgeries: Yes: Cancer Surgery, Cardiac Catheterization, Cardiac Surgery, Cholecystectomy, Coronary Stent, , Open Heart Surgery, Tubal Ligation, Other (amputee left leg and right toes). No: Pacemaker Amputation: Yes (Left BKA 06/23/14; 4th toe right foot 2016) Fractures: No - *Social History Smoking Status: Never smoker # Packs/Day (cigarettes): 0 #Yrs smoked (if former smoker): 0 Alcohol Intake: never Alcohol Intake Frequency:: other Substance Use Type: denies use *Occupational Status:: disabled Housing: house Household Members: family *Travel in the last 8 weeks: Inside the [place] Family Hx:: Cancer, Diabetes, Heart Attack, Hyperlipidemia, Hypertension
--- NOTE | 2018-11-16 09:49 | FL_ITS ---
FL barium enema w air contrast CLINICAL INDICATION: Incomplete colonoscopy, bleeding from bowels, ITS.REASON: screening ORDERING PHYSICIAN: Koeb Mcdaniels MD PATIENT AGE: 52 years Comparison: None Fluoroscopy time: 8 minutes and 40 seconds FINDINGS: Egg Grader exam shows multiple abdominal wall tacks. There was initially difficulty in filling the entire colon due to the redundancy of the sigmoid colon. The sigmoid colon is barely dilated and the ascending and proximal transverse colon were not distended. A second Baggott barium was added with better distention of the colon. No annular constricting lesions, fixed polypoid filling defects, or mucosal of the right are apparent. There was some residual secretions within the colon with flocculation of the barium. IMPRESSION: Very difficult and limited study, no obvious annular constricting lesions or polypoid filling defects.
--- NOTE | 2018-11-16 09:51 | HMH.SCOPE ---
- Procedure: Date: 11/16/18 Procedure Performed:: Colonoscopy (incomplete secondary to poor bowel preparation and spasticity/tortuosity) Indications:: Screening Performing Provider:: Kobe Mcdaniels MD Referring Provider:: Dr. Mcmanus Sedation:: Monitored anesthesia care Procedure:: After informed consent was obtained the patient was taken to the endoscopy suite. Sedation ensued after the patient was transferred to the left lateral decubitus position. Pulse, blood pressure, and oxygen saturation were monitored throughout the procedure. Digital rectal exam revealed no significant abnormality. Hemorrhoidal cushions/tags were noted. The colonoscope was placed in position. A fairly large amount of feculent material was noted throughout the rectum and sigmoid colon. Advancement into the transverse colon revealed ongoing visualization limitation secondary to an adequate bowel preparation and spasticity/tortuosity. The decision was made to forego further attempts at advancement. The colonoscope was carefully removed and the patient was transferred to recovery in stable condition. Barium enema pending. Findings:: Poor bowel preparation Significant hemorrhoid cushions Fairly severe tortuosity/spasticity Colonoscopy incomplete secondary to above Specimens:: None Recommendations:: Barium enema ordered Complications:: Inadequate bowel preparation Estimated blood obtained (mL): 0
--- NOTE | 2018-11-16 09:54 | P.PCN_ITS ---
- Procedure: Date: 11/16/18 Procedure Performed:: Colonoscopy (incomplete secondary to poor bowel preparation and spastic ity/tortuosity) Indications:: Screening Performing Provider:: Kobe Mcdaniels MD Referring Provider:: Dr. Mcmanus Sedation:: Monitored anesthesia care Procedure:: After informed consent was obtained the patient was taken to the endoscopy suite. Sedation ensued after the patient was transferred to the left lateral decubitus position. Pulse, blood pressure, and oxygen saturation were monitored throughout the procedure. Digital rectal exam revealed no significant abnormality. Hemorrhoidal cushions/tags were noted. The colonoscope was placed in position. A fairly large amount of feculent material was noted throughout the rectum and sigmoid colon. Advancement into the transverse colon revealed ongoing visualization limitation secondary to an adequate bowel preparation and spasticity/tortuosity. The decision was made to forego further attempts at advancement. The colonoscope was carefully removed and the patient was transferred to recovery in stable condition. Barium enema pending. Findings:: Poor bowel preparation Significant hemorrhoid cushions Fairly severe tortuosity/spasticity Colonoscopy incomplete secondary to above Specimens:: None Recommendations:: Barium enema ordered Complications:: Inadequate bowel preparation Estimated blood obtained (mL): 0
--- NOTE | 2018-11-16 10:38 | SUR.PHASEII ---
Pt to radiology for barium enema per MD order at 1034. IV patent and intact upon leaving post op area. Radiology still will d/c IV and patient upon completion of study.
== END ==
PROVIDERS: PCP Family Medicine; Visit Provider Surgery
PROC: 0DJD8ZZ Inspection of Lower Intestinal Tract, Via Natural or Artificial Opening Endoscopic (ICD-10-PCS; principal; 2018-11-16 09:30)
DX: Z12.11 Encounter for screening for malignant neoplasm of colon (principal); K58.9 Irritable bowel syndrome, unspecified; Z91.19 Patient's noncompliance with other medical treatment and regimen; K64.9 Unspecified hemorrhoids; E11.9 Type 2 diabetes mellitus without complications
CPT/HCPCS: G0104; 74280; 82962

== ENCOUNTER → 2019-04-27 13:54 | Outpatient (CLI) | payer MEDICARE, MEDICAID, SELFPAY ==
--- NOTE | 2019-04-27 | CA_ITS ---
APPROVED REPORT Java Software: YOLY Laterality: Bilateral Study Quality: Technically Difficult, Due to body habitus. Indications: Diminished pulse, history of PAD, history of left leg amputation Risk Factors History of Lower Extremity PAD: Bilaterally Obesity VELOCITY AND DOPPLER WAVEFORM ANALYSIS RIGHT cm/sec Waveform Severity SOLUTIONS SPECIALIST 92.0/ PFA 83.1/ Prox SFA 41.9/ Mid SFA 48.6/ Dis SFA 371.5/ POP 18.1/ Post Tibial 29.4/ LEFT cm/sec Waveform Severity Conclusion Duplex evaluation demonstrates a moderate stenosis of the Right Distal Femoral Artery in the range of 50-75%. Duplex evaluation demonstrates a moderate stenosis of the Right Popliteal Artery in the range of 50-75%. No definite flow seen with color doppler in the right peroneal artery distally. Electronically signed by : Almas Flynn MD 04/27/2019 17:06:05
--- NOTE | 2019-04-27 15:50 | HMH.PHAVTE ---
[facility] Pharmacy VTE Monitoring - Patient Demographics Admission date: 04/27/19 Report Date: 04/27/19 Time: 15:50 Allergies/Adverse Reactions: Patient Allergies azithromycin Allergy (Intermediate, Verified 04/27/19 15:03) S-DIFF. BREATHING daptomycin [DAPTOMYCIN] Allergy (Intermediate, Verified 04/27/19 15:03) I-RASH/ITCHING levofloxacin Allergy (Intermediate, Verified 04/27/19 15:03) I-RASH Penicillins Allergy (Intermediate, Verified 04/27/19 15:03) I-HIVES - Prophylaxis VTE Prophylaxis Ordered?: Yes Types of VTE Prophylaxis: TEDS Knee High Location of Applied Device: Left Leg - VTE Diagnosis Confirmed Treatment or plan recommended: Continue Current Treatment
== END ==
LOC: RT 13:56 → 2ND 15:35 → RT 10-31 00:10
PROVIDERS: PCP Physician Assistant; Visit Provider Physician Assistant
DX: I73.9 Peripheral vascular disease, unspecified (principal)
CPT/HCPCS: 93926

== ENCOUNTER 2019-05-09 15:38 | Observation (INO) ==
--- NOTE | 2019-05-09 17:01 | Consult Report ---
*Admission Date: 05/09/19 *Reason for consult:: R 2nd toe cellulitis *History of present illness: Ms. Nieto is a 53-year-old female who presents as a direct admit via Dr. Alva's office 05/09/2019 for cellulitis and gangrenous changes to the right second toe. Patient was seen 04/27/[address] Padilla who did an arterial duplex of the lower extremity. Results: duplex evaluation demonstrates a moderate stenosis of the Right Distal Femoral Artery in the range of 50-75%. Duplex evaluation demonstrates a moderate stenosis of the Right Popliteal Artery in the range of 50-75%. No definite flow seen with color doppler in the right peroneal artery distally. Patient was transferred out to for further evaluation. ABIs were performed 04/28/2019 which showed PT greater than 254, noncompressible, DP greater than 254 noncompressible, digit pressure 23, 0.20. Monophasic waveforms at PT and DP, unable to obtain CONOR due to vessels being noncompressible. Severe arterial disease noted. Patient underwent a CTA abdomen and and pelvis with runoff impression: Severe lower extremity arthrosclerotic disease. Mid segment right SFA patent stent, severe focal stenosis at the distal margin of the stent. Severe focal proximal stenosis of the right popliteal. Right anterior tibial occludes at the mid leg, reconstitutes above the ankle, crossing the ankle to the dorsalis pedis. Patent posterior tibial crosses the ankle. Arthrosclerotic disease of the left lower extremity with previous left BKA. Patient was then started on heparin daily. Patient denies N/V, F/C, SOB/CP. She is resting comfortably in bed and denies pain to the lower extremity. The toenails of toes 1, 2 and 5 have blood underneath them and there is blistering to the right second toe which was reported to have started after her admission at 04/27/2019. Patient denies drainage, purulence. She was on Augmentin after her hospital admission but currently is not taking any antibiotics. Review of Systems - Review of Systems Review of systems:: pertinent systems reviewed and negative unless documented below - Constitutional Denies chills, Denies fatigue - Eyes Denies blind spots - ENT Denies abnormal hearing - *Cardiovascular Denies chest pain, Denies shortness of breath - *Respiratory Denies shortness of breath - *Gastrointestinal Denies abdominal pain, Denies nausea, Denies vomiting - *Genitourinary Denies abnormal periods - *Musculoskeletal Reports deformity, Reports joint swelling - Integumentary/Breasts Reports hair loss, Reports nail changes, Reports dry skin - *Neurologic Reports tingling/numbness/burning sensations - Hematologic/Lymphatic Reports easy bruising [facility] History I have reviewed the patient's past medical history: Yes Medical History: Reports:: Cancer (breast 2000), Coronary Artery Disease, Cerebrovascular Accident, Deep Vein Thrombosis, Diabetes Mellitus Type 2, Gall Bladder Disease, Hyperlipidemia, Hypertension, MRSA, Myocardial Infarction, Peripheral Vascular Disease, Renal Disease, Renal Insufficiency, Transient Ischemic Attacks (TIA), Urinary Tract Infection Denies:: Asthma, Chronic Obstructive Pulmonary Disease (COPD), Diabetes Mellitus Type 1, Internal Pacemaker, Lung Disease, Seizures *Have you ever received a pneumonia vaccine?: Yes *Have you received a flu vaccine this season?: Yes Other Medical History: Reports: Chemotherapy, Sinus Problems. Denies: Blood Transfusion Reaction Laterality Cases: Right: Mastectomy, Other, Bilateral: Carpal Tunnel Release Other Surgeries: Yes: Cancer Surgery, Cardiac Catheterization, Cardiac Surgery, Cholecystectomy, Colonoscopy, Coronary Stent, , Open Heart Surgery, Tubal Ligation, Other (amputee left leg and right toes). No: Pacemaker Amputation: Yes (Left BKA 06/23/14; 4th toe right foot 2016) Fractures: No - *Social History Educational Level: Attended College Smoking Status: Never smoker # Packs/Day (cigarettes): 0 #Yrs smoked (if former smoker): 0 Alcohol Intake: never Alcohol Intake Frequency:: other Substance Use Type: denies use *Occupational Status:: disabled Housing: house Household Members: family *Travel in the last 8 weeks: None Family Hx:: Cancer, Diabetes, Heart Attack, Hyperlipidemia, Hypertension Meds Home Medications Medication Instructions Recorded Confirmed Type amiloride 5 mg tablet 10 mg PO DAILY 09/22/17 04/27/19 History aspirin 25 mg-dipyridamole 200 mg 1 cap PO BID 09/22/17 04/27/19 History capsule,ext.release 12 hr multiphase baclofen 10 mg tablet 10 mg PO DAILY 09/22/17 04/27/19 History clopidogrel 75 mg tablet 75 mg PO DAILY 09/22/17 04/27/19 History glimepiride 2 mg tablet 2 mg PO DAILY 09/22/17 04/27/19 History metolazone 5 mg tablet 5 mg PO DAILY 09/22/17 04/27/19 History Loratadine [Allergy] 10 mg PO DAILY 11/19/17 04/27/19 History Baclofen [Lioresal 10mg tablet] 20 mg PO HS 11/20/17 04/27/19 History Citalopram Hydrobromide [Celexa 20 mg PO DAILY 11/20/17 04/27/19 History 20mg Tablet] Donepezil HCl [Aricept 5mg 5 mg PO HS 04/14/18 04/27/19 History Tablet] Insulin Detemir [Levemir 45 unit SQ DAILY 04/14/18 04/27/19 History 100units/mL 3mL flexpen] Potassium Chloride 60 meq PO TID 04/14/18 04/27/19 History Rosuvastatin Calcium [Crestor] 20 mg PO DAILY 04/14/18 04/27/19 History Spironolactone [Aldactone 25mg 25 mg PO DAILY 04/14/18 04/27/19 History Tab] Furosemide [Furosemide 40MG tAB] 40 mg PO DAILY 04/15/18 04/27/19 History warfarin 5 mg tablet 2.5 mg PO DAILY tab 08/17/18 04/27/19 History insulin lispro (U-100) 100 unit/mL 25 unit SQ AC ml 10/17/18 04/27/19 History subcutaneous pen cholecalciferol (vitamin D3) 1,000 1,000 unit PO DAILY 04/19/19 04/27/19 History unit capsule Allergies Allergy/AdvReac Type Severity Reaction Status Date / Time azithromycin Allergy Intermediate S-DIFF. Verified 04/27/19 15:03 BREATHING daptomycin [DAPTOMYCIN] Allergy Intermediate I-RASH/ITCH Verified 04/27/19 15:03 ING levofloxacin Allergy Intermediate I-RASH Verified 04/27/19 15:03 Penicillins Allergy Intermediate I-HIVES Verified 04/27/19 15:03 Exam I & O for Last 24 hours: Intake & Output 05/07/19 05/08/19 05/09/19 05/10/19 11:59 11:59 11:59 11:59 Weight 168 lb - Constitutional no acute distress, obese, chronically ill appearing - *Routine HEENT Exam Head: Present: normocephalic - *Routine Neck Exam Present: supple - *Routine Respiratory Exam Absent: respiratory distress - *Routine Cardiovascular Exam Absent: JVD - *Routine Abdominal Exam Present: soft - *Routine Rectal Exam Patient deferred: visual exam - *Routine Exam Patient deferred: external exam - *Routine Extremities Exam Present: full ROM, pulses intact, amputation (L BKA, R 3-4th toe amp) - *Routine Skin Exam Present: erythema, warm, scars, ecchymosis - *Routine Neurological Exam Present: alert, oriented X3 - Detailed Lower Extremity Exam Foot/Toes: Left amputation (L BKA), Right swelling Top foot image: 1 - Right foot is warm to touch. Weekly but palpable DP and PT pedal pulse. Decreased CFT. Right 2nd toe cellulitis noted there is blistering with serosanguineous blister fluid draining to the dorsal aspect of the toe. There is subungual hematoma and bleeding from the tips of the right first second and fifth toes. Previous third and fourth toe amputations. Calf is hard but supple, no pain with squeezing. Negative Chivo. Results - Labs Labs: All other labs normal. - Diagnostic results Ankle/Foot x-ray: image reviewed (R 3-4th toe amp, arterial calcifications noted, no fractures or gas noted) Assessment and Plan (1) Cellulitis of right toe Current visit: Yes Status: Acute Category: Medical Code(s): L03.031 - Cellulitis of right toe (2) Subungual hematoma of toe of right foot Current visit: Yes Status: Acute Category: Medical Code(s): S90.221A - Contusion of right lesser toe(s) with damage to nail, initial encounter (3) Avulsion of toenail of right foot Current visit: Yes Status: Acute Category: Medical Code(s): S91.209A - Unspecified open wound of unspecified toe(s) with damage to nail, initial encounter (4) History of amputation of lesser toe of right foot Current visit: Yes Status: Acute Category: Surgical Code(s): Z89.421 - Acquired absence of other right toe(s) (5) Diabetes mellitus Current visit: No Status: Chronic Qualifiers: Diabetes mellitus type: type 2 Diabetes mellitus engraver ornamental design insulin use: without engraver ornamental design use Diabetes mellitus complication status: with neurologic complications Diabetes mellitus complication detail: with polyneuropathy Qualified Code(s): E11.42 - Type 2 diabetes mellitus with diabetic polyneuropathy Category: Medical Code(s): E11.9 - Type 2 diabetes mellitus without complications (6) Hemiparesis affecting left side as late effect of cerebrovascular accident Current visit: No Status: Chronic Category: Medical Code(s): I69.354 - Hemiplegia and hemiparesis following cerebral infarction affecting left non- dominant side (7) History of CVA (cerebrovascular accident) Current visit: No Status: Chronic Category: Medical Code(s): Z86.73 - Personal history of transient ischemic attack (TIA), and cerebral infarction without residual deficits (8) History of left below knee amputation Current visit: No Status: Chronic Category: Medical Code(s): Z89.512 - Acquired absence of left leg below knee (9) Ischemic foot Current visit: No Status: Chronic Category: Medical Code(s): I99.8 - Other disorder of circulatory system (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 A 15 blade was used to sharply remove the blister and peeling skin from the right second toe. Serosanguineous blister fluid cultured. The toenails had blood underneath them and were traumatically avulsing. Discussed with the patient and her mother removing the toenails to check for underlying laceration, infection and to avoid them getting caught on socks and bed sheets in the future. RIGHT 1,2,5th TOTAL NAIL AVULSIONS: I discussed the condition and treatment options with the patient. We discussed removal of the entire nails. Patient would like to go ahead with the procedure. No local anesthetic block was given into the as patient is neuropathic. No digital tourniquet was placed. At this time an elevator and hemostat were used to remove the entire nail of the right big toe, 2nd and then 5th toenails. There was hypertrophy and thick skin noted to the tissue under the nail. But no laceration, purulence or deep signs of infection. Betadine soaked 4x4s and dry gauze, and rhiannon wrap was placed around the toes. Coban was applied. 1. Discussed plan of care with Dr. Alva 2. Labs: CBC, CMP, CRP, ESR, A1c, wound culture 3. X-rays 3 views right foot taken and evaluated myself. Report pending. Upon initial examination there are calcifications noted to the right foot. Previous amputation of the right third and fourth toes. No fracture or gas infection noted. 4. IV antibiotics: Rocephin 1 g every [address] Alva 5. Podiatry: Plan for dressing change tomorrow morning. Plan: If toes looks stable with no gangrenous changes can likely be discharged on antibiotics and follow-up outpatient. Discussed with the patient due to her severe PAD she is still high risk for digital, partial foot or leg amputation. We will monitor.
[2019-05-09 17:15] LABS: INR 2.64 (0.9-1.1); Prothrombin Time 26.2 seconds (9.4-11.8)
[2019-05-09 17:25] LABS: Basophils # 0.1 K/mm3 (0-0.2); Basophils % 0.4 % (0.1-2.0); Eosinophils # 0.2 K/mm3 (0.0-0.4); Eosinophils % 1.3 % (0.1-12.0); Hemoglobin 11.6 g/dL (12.2-16.2); Lymphocytes # 3.3 K/mm3 (0.7-4.5); Lymphocytes % 25.2 % (10-50); Mean Corpuscular HGB Conc 33.1 g/dL (31.8-35.4); Mean Corpuscular Volume 85.5 fl (81-99); Mean Platelet Volume 8.7 fl (7.4-10.4); Monocytes # 0.6 K/mm3 (0.1-1.0); Monocytes % 4.8 % (1.7-9.3); Neutrophils # 8.9 K/mm3 (1.8-7.8); Neutrophils % 68.2 % (37.0-80.0); Platelet Count 288 K/mm3 (142-424); Red Blood Count 4.09 M/mm3 (4.20-5.40); Red Cell Distribution Width 17.5 % (11.5-17.5)
--- NOTE | 2019-05-09 17:35 | History & Physical Report ---
*Admission Date: 05/09/19 <Irina Gil 05/09/19 17:40> *Chief complaint: right toe wound <Irina Gil 05/09/19 17:40> *History of present illness: Ms. Nieto is a 53-year-old female who was recently discharged from after having an ischemic limb with angioplasty. Her mother states they were there for several days and while at , she developed a wound on her great toe. Her mother states they started her on Augmentin while at , but when she was discharged on Tuesday, she was not sent home with any antibiotics. Her mother states the wound progressed from her great toe to her second toe and she was therefore brought to [facility] to be evaluated today. She was seen by Dr. Alva and he felt she had a cellulitis and would need admission with IV antibiotics and a podiatry consult. The patient has been seen by Dr. Calloway. Dr. Calloway felt she had right second toe cellulitis and that there was a subungual hematoma and bleeding from the tips of the right first and second toes. She did remove the blister and peeling skin from the right second toe and performed nail avulsions of the first, second, and fifth toes. X-rays were ordered. She felt the patient would need to be started on IV antibiotics and she plans to follow with her to do a dressing change tomorrow. <Irina Gil 05/09/19 17:40> [facility] History I have reviewed the patient's past medical history: Yes <Irina Gil 05/09/19 17:40> Medical History: Reports:: Cancer (breast 2001), Coronary Artery Disease, Cerebrovascular Accident, Deep Vein Thrombosis, Diabetes Mellitus Type 2, Gall Bladder Disease, Hyperlipidemia, Hypertension, MRSA, Myocardial Infarction, Peripheral Vascular Disease, Renal Disease, Renal Insufficiency, Transient Ischemic Attacks (TIA), Urinary Tract Infection Denies:: Asthma, Chronic Obstructive Pulmonary Disease (COPD), Diabetes Mellitus Type 1, Internal Pacemaker, Lung Disease, Seizures <Irina Gil 05/09/19 17:40> *Have you ever received a pneumonia vaccine?: Yes <Irina Gil 05/09/19 17:40> *Have you received a flu vaccine this season?: Yes <Irina Gil 05/09/19 17:40> Other Medical History: Reports: Chemotherapy, Sinus Problems, Other (Limb ischemia with angioplasty on the right). Denies: Blood Transfusion Reaction <Irina Gil 05/09/19 17:40> Laterality Cases: Right: Mastectomy, Other, Bilateral: Carpal Tunnel Release <Irina Gil 05/09/19 17:40> Other Surgeries: Yes: Cancer Surgery, Cardiac Catheterization, Cardiac Surgery, Cholecystectomy, Colonoscopy, Coronary Stent, , Open Heart Surgery, Tubal Ligation, Other (amputee left leg and right toes). No: Pacemaker <Irina Gil 05/09/19 17:40> Amputation: Yes (Left BKA 06/23/14; 4th toe right foot 2016) <Irina Gil 05/09/19 17:40> Fractures: No <Irina Gil 05/09/19 17:40> Comment: right limb angioplasty <Irina Gil 05/09/19 17:40> - *Social History Educational Level: Attended College <Irina Gil 05/09/19 17:40> Smoking Status: Never smoker <Irina Gil 05/09/19 17:40> # Packs/Day (cigarettes): 0 <Irina Gil 05/09/19 17:40> #Yrs smoked (if former smoker): 0 <Irina Gil 05/09/19 17:40> Alcohol Intake: never <Irina Gil 05/09/19 17:40> Alcohol Intake Frequency:: other <Irina Gil 05/09/19 17:40> Substance Use Type: denies use <Irina Gil 05/09/19 17:40> *Occupational Status:: disabled <Irina Gil 05/09/19 17:40> Housing: house <Irina Gil 05/09/19 17:40> Household Members: family <Irina Gil 05/09/19 17:40> *Travel in the last 8 weeks: None <Irina Gil 05/09/19 17:40> Family Hx:: Cancer, Diabetes, Heart Attack, Hyperlipidemia, Hypertension <Irina Gil 05/09/19 17:40> Review of Systems - Constitutional Reports chills, Reports fatigue, Reports fever(s), Reports weakness <Irina Gil 05/09/19 17:40> - Eyes Denies blurry vision, Denies double vision <Irina Gil 05/09/19 17:40> - ENT Reports nasal congestion, Denies sore throat <Irina Gil 05/09/19 17:40> - *Cardiovascular Denies chest pain, Denies shortness of breath <Irina Gil 05/09/19 17:40> - *Respiratory Denies chest congestion, Denies cough <[facility] 05/09/19 17:40> - *Gastrointestinal Denies abdominal pain, Denies loose stools, Denies nausea, Denies vomiting <[facility] 05/09/19 17:40> - *Genitourinary Denies difficulty urinating, Denies painful urination <[facility] 05/09/19 17:40> - *Musculoskeletal Denies joint pain <[facility] 05/09/19 17:40> - *Neurologic Denies abnormal hearing, Denies tingling/numbness/burning sensations, Denies dizziness <[facility] 05/09/19 17:40> Meds Home Medications Medication Instructions Recorded Confirmed Type amiloride 5 mg tablet 10 mg PO DAILY 09/22/17 05/09/19 History aspirin 25 mg-dipyridamole 200 mg 1 cap PO BID 09/22/17 05/09/19 History capsule,ext.release 12 hr multiphase baclofen 10 mg tablet 10 mg PO BID 09/22/17 05/09/19 History clopidogrel 75 mg tablet 75 mg PO DAILY 09/22/17 05/09/19 History glimepiride 2 mg tablet 2 mg PO DAILY 09/22/17 05/09/19 History metolazone 5 mg tablet 5 mg PO DAILY 09/22/17 05/09/19 History Loratadine [Allergy] 10 mg PO DAILY 11/19/17 05/09/19 History Baclofen [Lioresal 10mg tablet] 20 mg PO HS 11/20/17 05/09/19 History Citalopram Hydrobromide [Celexa 20 mg PO DAILY 11/20/17 05/09/19 History 20mg Tablet] Donepezil HCl [Aricept 5mg 5 mg PO HS 04/14/18 05/09/19 History Tablet] Insulin Detemir [Levemir 40 unit SQ BID 04/14/18 05/09/19 History 100units/mL 3mL flexpen] Potassium Chloride 40 meq PO TID 04/14/18 05/09/19 History Rosuvastatin Calcium [Crestor] 20 mg PO DAILY 04/14/18 05/09/19 History Spironolactone [Aldactone 25mg 25 mg PO DAILY 04/14/18 05/09/19 History Tab] Furosemide [Furosemide 40MG tAB] 40 mg PO DAILY 04/15/18 05/09/19 History warfarin 5 mg tablet 1 tab PO DAILY tab 08/17/18 05/09/19 History insulin lispro (U-100) 100 unit/mL 15 unit SQ AC ml 10/17/18 05/09/19 History subcutaneous pen cholecalciferol (vitamin D3) 1,000 1,000 unit PO DAILY 04/19/19 05/09/19 History unit capsule Linagliptin/Metformin HCl 1 each PO BID 05/09/19 05/09/19 History [Jentadueto 2.5 mg-1000 mg Tab] Metoprolol Tartrate [Lopressor 25 mg PO BID 05/09/19 05/09/19 History 25mg tablet] <Shawn Alva - 05/09/19 18:07> Allergies Allergy/AdvReac Type Severity Reaction Status Date / Time azithromycin Allergy Intermediate S-DIFF. Verified 04/27/19 15:03 BREATHING daptomycin [DAPTOMYCIN] Allergy Intermediate I-RASH/ITCH Verified 04/27/19 15:03 ING levofloxacin Allergy Intermediate I-RASH Verified 04/27/19 15:03 Penicillins Allergy Intermediate I-HIVES Verified 04/27/19 15:03 <Shawn Alva - 05/09/19 18:07> Exam Vital signs and Labs for Last 24 Hours: Temp Pulse Resp BP Pulse Ox 98.2 F 77 16 113/74 95 05/09/19 16:00 05/09/19 16:00 05/09/19 16:00 05/09/19 16:00 05/09/19 16:00 Laboratory Results - last 24 hr 05/09/19 16:55: WBC 13.0 H, RBC 4.09 L, Hgb 11.6 L, Hct 35.0 L, MCV 85.5, MCH 28.3, MCHC 33.1, RDW 17.5, Plt Count 288, MPV 8.7, Neut % (Auto) 68.2, Lymph % (Auto) 25.2, Mayes % (Auto) 4.8, Eos % (Auto) 1.3, Baso % (Auto) 0.4, Neut # (Auto) 8.9 H, Lymph # (Auto) 3.3, Mayes # (Auto) 0.6, Eos # (Auto) 0.2, Baso # (Auto) 0.1 05/09/19 16:55: PT 26.2 H, INR 2.64 H <Shawn Alva - 05/09/19 18:07> Laboratory Results - last 24 hr 05/09/19 16:55: WBC 13.0 H, RBC 4.09 L, Hgb 11.6 L, Hct 35.0 L, MCV 85.5, MCH 28.3, MCHC 33.1, RDW 17.5, Plt Count 288, MPV 8.7, Neut % (Auto) 68.2, Lymph % (Auto) 25.2, Mayes % (Auto) 4.8, Eos % (Auto) 1.3, Baso % (Auto) 0.4, Neut # (Auto) 8.9 H, Lymph # (Auto) 3.3, Mayes # (Auto) 0.6, Eos # (Auto) 0.2, Baso # (Auto) 0.1 05/09/19 16:55: PT 26.2 H, INR 2.64 H <Irina Gil - 05/09/19 17:40> I & O for Last 24 hours: Intake & Output 05/06/19 05/07/19 05/08/19 05/09/19 23:59 23:59 23:59 23:59 Weight 168 lb <Shawn Alva - 05/09/19 18:07> Intake & Output 05/07/19 05/08/19 05/09/19 05/10/19 11:59 11:59 11:59 11:59 Weight 168 lb <Irina Gil - 05/09/19 17:40> - Constitutional no acute distress [facility] - *Routine HEENT Exam Head: Present: normocephalic <Irina Gil 05/09/19 17:40> Eye: Present: EOMI, PERRL <[facility] 05/09/19 17:40> ENT: Present: mucous membranes dry <Irina Gil 05/09/19 17:40> - *Routine Neck Exam Present: supple. Absent: lymphadenopathy <[facility] 05/09/19 17:40> - *Routine Respiratory Exam Present: CTA bilaterally <[facility] 05/09/19 17:40> - *Routine Cardiovascular Exam Present: RRR <[facility] 05/09/19 17:40> - *Routine Abdominal Exam Present: soft, normoactive bowel sounds. Absent: tenderness <[facility] 05/09/19 17:40> - *Routine Extremities Exam Absent: cyanosis, clubbing, edema <Irina Gil 05/09/19 17:40> Comments: Left leg amputation, right foot with dressing in place <[facility] 05/09/19 17:40> - *Routine Skin Exam Present: warm. Absent: rash <[facility] 05/09/19 17:40> - *Routine Neurological Exam Present: alert, oriented X3 [facility]/09[facility] 17:40> H&P: Result - Impressions Foot x-ray - Prior amputation at the 3rd and 4th metatarsophalangeal joint with bandage artifact at the 1st 2nd and 5th toes without obvious erosive changes <Irina Gil 05/09/19 17:40> Assessment and Plan (1) Cellulitis of right toe Current visit: Yes Status: Acute Category: Medical Code(s): L03.031 - Cellulitis of right toe (2) Subungual hematoma of toe of right foot Current visit: Yes Status: Acute Category: Medical Code(s): S90.221A - Contusion of right lesser toe(s) with damage to nail, initial encounter (3) Avulsion of toenail of right foot Current visit: Yes Status: Acute Category: Medical Code(s): S91.209A - Unspecified open wound of unspecified toe(s) with damage to nail, initial encounter (4) History of amputation of lesser toe of right foot Current visit: Yes Status: Acute Category: Surgical Code(s): Z89.421 - Acquired absence of other right toe(s) (5) Diabetes mellitus Current visit: No Status: Chronic Qualifiers: Diabetes mellitus type: type 2 Diabetes mellitus correction insulin use: without correction use Diabetes mellitus complication status: with neurologic complications Diabetes mellitus complication detail: with polyneuropathy Qualified Code(s): E11.42 - Type 2 diabetes mellitus with diabetic polyneuropathy Category: Medical Code(s): E11.9 - Type 2 diabetes mellitus without complications (6) Hemiparesis affecting left side as late effect of cerebrovascular accident Current visit: No Status: Chronic Category: Medical Code(s): I69.354 - Hemiplegia and hemiparesis following cerebral infarction affecting left non- dominant side (7) History of CVA (cerebrovascular accident) Current visit: No Status: Chronic Category: Medical Code(s): Z86.73 - Personal history of transient ischemic attack (TIA), and cerebral infarction without residual deficits (8) History of left below knee amputation Current visit: No Status: Chronic Category: Medical Code(s): Z89.512 - Acquired absence of left leg below knee (9) Ischemic foot Current visit: No Status: Chronic Category: Medical Code(s): I99.8 - Other disorder of circulatory system (10) correction 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 Current visit: No Status: Chronic Category: Medical Code(s): 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.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 (11) Peripheral arterial occlusive disease Current visit: No Status: Chronic Category: Medical Code(s): I77.9 - Disorder of arteries and arterioles, unspecified <Shawn Alva - 05/09/19 18:07> (1) Cellulitis of right toe Current visit: Yes Status: Acute Category: Medical Code(s): L03.031 - Cellulitis of right toe (2) Subungual hematoma of toe of right foot Current visit: Yes Status: Acute Category: Medical Code(s): S90.221A - Contusion of right lesser toe(s) with damage to nail, initial encounter (3) Avulsion of toenail of right foot Current visit: Yes Status: Acute Category: Medical Code(s): S91.209A - Unspecified open wound of unspecified toe(s) with damage to nail, initial encounter (4) History of amputation of lesser toe of right foot Current visit: Yes Status: Acute Category: Surgical Code(s): Z89.421 - Acquired absence of other right toe(s) (5) Diabetes mellitus Current visit: No Status: Chronic Qualifiers: Diabetes mellitus type: type 2 Diabetes mellitus 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 insulin use: 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 Diabetes mellitus complication status: with neurologic complications Diabetes mellitus complication detail: with polyneuropathy Qualified Code(s): E11.42 - Type 2 diabetes mellitus with diabetic polyneuropathy Category: Medical Code(s): E11.9 - Type 2 diabetes mellitus without complications (6) Hemiparesis affecting left side as late effect of cerebrovascular accident Current visit: No Status: Chronic Category: Medical Code(s): I69.354 - Hemiplegia and hemiparesis following cerebral infarction affecting left non- dominant side (7) History of CVA (cerebrovascular accident) Current visit: No Status: Chronic Category: Medical Code(s): Z86.73 - Personal history of transient ischemic attack (TIA), and cerebral infarction without residual deficits (8) History of left below knee amputation Current visit: No Status: Chronic Category: Medical Code(s): Z89.512 - Acquired absence of left leg below knee (9) Ischemic foot Current visit: No Status: Chronic Category: Medical Code(s): I99.8 - Other disorder of circulatory system (10) correction 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 Current visit: No Status: Chronic Category: Medical Code(s): Z79.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 (11) Peripheral arterial occlusive disease Current visit: No Status: Chronic Category: Medical Code(s): I77.9 - Disorder of arteries and arterioles, unspecified <Irina Gil - 05/09/19 17:31> - Assessment and plan all Dx Assessment and Plan for all problems:: Saw patient, agree with above note. <Shawn Alva - 05/09/19 18:07> Patient has been started on antibiotics and has been seen by Dr. Calloway. <Irina Gil - 05/09/19 17:40>
[2019-05-09 18:16] LABS: Albumin Level 3.2 gm/dL (3.4-5.0); Albumin/Globulin Ratio 0.7 (1.1-1.8); Anion Gap 13.5 mEq/L (5-15); Bilirubin,Total 0.5 mg/dL (0.2-1.0); C-Reactive Protein 0.7 mg/dL (0.0-0.9); Calcium 8.8 mg/dL (8.5-10.1); Globulin 4.6 gm/dl (1.3-3.2); Total Protein,Serum 7.8 gm/dL (6.4-8.2)
--- NOTE | 2019-05-10 07:37 | Pharmacy Consult Notes ---
[facility] Pharmacy VTE Monitoring - Patient Demographics Admission date: 05/09/19 Report Date: 05/10/19 Time: 07:37 Allergies/Adverse Reactions: Patient Allergies azithromycin Allergy (Intermediate, Verified 04/27/19 15:03) S-DIFF. BREATHING daptomycin [DAPTOMYCIN] Allergy (Intermediate, Verified 04/27/19 15:03) I-RASH/ITCHING levofloxacin Allergy (Intermediate, Verified 04/27/19 15:03) I-RASH Penicillins Allergy (Intermediate, Verified 04/27/19 15:03) I-HIVES Height: 1.52 m Weight: 76.714 kg Patient Problems: Current Active Problems Cellulitis of right toe (Acute) Subungual hematoma of toe of right foot (Acute) Avulsion of toenail of right foot (Acute) History of amputation of lesser toe of right foot (Acute) - VTE Risk Labs: VTE Related Lab Results Hgb 11.6 g/dL (12.2-16.2) L 05/09/19 16:55 Hct 35.0 % (37.0-47.0) L 05/09/19 16:55 Plt Count 288 K/mm3 (142-424) 05/09/19 16:55 PT 26.2 seconds (9.4-11.8) H 05/09/19 16:55 INR 2.64 (0.9-1.1) H 05/09/19 16:55 BUN 30 mg/dL (7-18) H 05/09/19 16:55 Creatinine 1.36 mg/dL (0.55-1.02) H 05/09/19 16:55 Estimated Creat Clear 59 mL/min (50-200) 05/09/19 16:55 Was VTE Risk Assessment Performed: Yes VTE Score: 11 VTE Risk Level: Moderate Risk - Prophylaxis VTE Prophylaxis Ordered?: Yes Types of VTE Prophylaxis: Pharmacological Pharmacologic Type: Warfarin - VTE Diagnosis Confirmed Treatment or plan recommended: Continue Current Treatment
--- NOTE | 2019-05-10 08:13 | Progress Note ---
Subjective Date: 05/10/19 Time: 07:55 Principal diagnosis: R 2nd toe cellulitis Interval history: Patient denies N/V, F/C, SOB/CP. She is resting comfortably in bed and denies pain to the lower extremity. The toenails of toes 1, 2 and 5 were removed 05/09/19. PN: Obj Ex Vital signs: Temp Pulse Resp BP Pulse Ox 98.8 F 71 16 112/65 96 05/10/19 04:00 05/10/19 04:00 05/10/19 04:00 05/10/19 04:00 05/10/19 04:00 - Constitutional no acute distress - Routine HEENT Exam Head: Present: normocephalic - Routine Neck Exam Present: supple - Routine Respiratory Exam Absent: respiratory distress - Routine Abdominal Exam Present: soft - Routine Extremities Exam Present: edema, pulses intact, amputation (L BKA, R 3-4th toes). Absent: calf tenderness, pallor - Detailed Lower Extremity Exam Top foot image: 1 - Right foot is warm to touch. Weakly but palpable DP and PT pedal pulse. Decreased CFT. Right 2nd toe cellulitis noted there is blistering with serosanguineous blister and fluid drained yesterday to the dorsal aspect of the toe. Toenails removed in total from right first second and fifth toes. No purulence or drainage noted. No ascending cellulitis. Previous third and fourth toe amputations. Calf is hard but supple, no pain with squeezing. Negative Chivo. - Routine Skin Exam Present: erythema, warm, wounds - Routine Neurological Exam Present: alert Progress Note: A&P (1) Cellulitis of right toe Status: Acute Current Visit: Yes (2) Subungual hematoma of toe of right foot Status: Acute Current Visit: Yes (3) Avulsion of toenail of right foot Status: Acute Current Visit: Yes (4) History of amputation of lesser toe of right foot Status: Acute Current Visit: Yes (5) Diabetes mellitus Status: Chronic Current Visit: No (6) Hemiparesis affecting left side as late effect of cerebrovascular accident Status: Chronic Current Visit: No (7) History of CVA (cerebrovascular accident) Status: Chronic Current Visit: No (8) History of left below knee amputation Status: Chronic Current Visit: No (9) Ischemic foot Status: Chronic Current Visit: No (10) FPC 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 Status: Chronic Current Visit: No (11) Peripheral arterial occlusive disease Status: Chronic Current Visit: No Assessment and Plan for All Diagnoses:: RIGHT 2ND TOE CELLULITIS, S/P RIGHT 1,2,5th TOTAL NAIL AVULSIONS 05/09/19: Toenails looks stable with no signs of deep infection. Betadine soaked 4x4s and dry gauze, and rhiannon wrap was placed around the toes. Coban was applied. X-rays of the right foot taken 05/09/2019 evaluated by myself. Report noted. No evidence of cortical erosion or osteomyelitis. Patient was instructed to soak the affected toe in warm water and Epsom salts daily for 10 minutes over the 1-2 weeks. Dry completely. Then apply triple antibiotic ointment to the nails with bandaid if drainage present. If the nail beds are moist/wet use Betadine and a dry sterile dressing instead of the Neosporin. Discussed signs of infection. The patient verbalized understanding. Patient to RTC as needed. Patient should call me sooner if any questions or concerns arise. 1. Discussed plan of care with Dr. Alva 2. Follow wound culture 3. IV antibiotics: Rocephin 1 g every [address] Alva 4. At d/c, ok for Orbactiv or oral abx x 10 days (Bactrim or Clinda) 5. Podiatry: f/u outpatient for total nail avulsion in 2 weeks Plan: Can likely be discharged on antibiotics and follow-up outpatient. Discussed with the patient due to her severe PAD she is still high risk for digital, partial foot or leg amputation. We will monitor outpatient.
--- NOTE | 2019-05-10 08:23 | Progress Note ---
<Irina Gil - Last Filed: 05/10/19 08:19> Internal Medicine - PN: Subj *Date: 05/10/19 *Time: 08:19 Interval history: Patient states she is feeling better today. She denies any pain. She rested well throughout the night and ate a good breakfast this morning. Dr. Calloway is seeing the patient currently to remove her foot dressing. Exam Vital signs and Labs for Last 24 Hours: Temp Pulse Resp BP Pulse Ox 98.8 F 71 16 112/65 96 05/10/19 04:00 05/10/19 04:00 05/10/19 04:00 05/10/19 04:00 05/10/19 04:00 Laboratory Results - last 24 hr 05/09/19 16:55: WBC 13.0 H, RBC 4.09 L, Hgb 11.6 L, Hct 35.0 L, MCV 85.5, MCH 28.3, MCHC 33.1, RDW 17.5, Plt Count 288, MPV 8.7, Neut % (Auto) 68.2, Lymph % (Auto) 25.2, [place] % (Auto) 4.8, Eos % (Auto) 1.3, Baso % (Auto) 0.4, Neut # (Auto) 8.9 H, Lymph # (Auto) 3.3, [place] # (Auto) 0.6, Eos # (Auto) 0.2, Baso # (Auto) 0.1, ESR Cancelled 05/09/19 16:55: Sodium 132 L, Potassium 4.5, Chloride 96 L, Carbon Dioxide 27, Anion Gap 13.5, BUN 30 H, Creatinine 1.36 H, Estimated Creat Clear 59, Estimated GFR 41 L, Est GFR ( Amer) 50 L, Glucose 216 H, Calcium 8.8, Total Bilirubin 0.5, AST 25, ALT 47, Alkaline Phosphatase 109, C-Reactive Protein 0.7, Total Protein 7.8, Albumin 3.2 L, Globulin 4.6 H, Albumin/Globulin Ratio 0.7 L 05/09/19 16:55: Hemoglobin A1c 9.1 H 05/09/19 16:55: PT 26.2 H, INR 2.64 H 05/09/19 21:39: POC Glucose 420 H* 05/10/19 00:01: POC Glucose 211 H 05/10/19 05:51: POC Glucose 165 H I & O for Last 24 hours: Intake & Output 05/07/19 05/08/19 05/09/19 05/10/19 11:59 11:59 11:59 11:59 Intake Total 60 / 60 Output Total 150 / 150 Balance -90 / -90 Weight 169 lb 2 oz Microbiology Reports for the Last 24 Hours: Microbiology 05/09/19 16:55 Foot,Right - Wound Gram Stain - Final Radiology Reports for the Last 24 Hours: Foot x-ray Prior amputation at the 3rd and 4th metatarsophalangeal joint with bandage artifact at the 1st 2nd and 5th toes without obvious erosive changes - Constitutional no acute distress - *Routine Respiratory Exam Present: CTA bilaterally - *Routine Cardiovascular Exam Present: RRR - *Routine Abdominal Exam Present: soft, normoactive bowel sounds. Absent: tenderness - *Routine Extremities Exam Absent: edema - *Routine Skin Exam Comments: right foot with dressing in place - *Routine Neurological Exam Present: alert, oriented X3 Assessment and Plan (1) Cellulitis of right toe Current visit: Yes Status: Acute Category: Medical Code(s): L03.031 - Cellulitis of right toe (2) Subungual hematoma of toe of right foot Current visit: Yes Status: Acute Category: Medical Code(s): S90.221A - Contusion of right lesser toe(s) with damage to nail, initial encounter (3) Avulsion of toenail of right foot Current visit: Yes Status: Acute Category: Medical Code(s): S91.209A - Unspecified open wound of unspecified toe(s) with damage to nail, initial encounter (4) History of amputation of lesser toe of right foot Current visit: Yes Status: Acute Category: Surgical Code(s): Z89.421 - Acquired absence of other right toe(s) (5) Diabetes mellitus Current visit: No Status: Chronic Category: Medical Code(s): E11.9 - Type 2 diabetes mellitus without complications (6) Hemiparesis affecting left side as late effect of cerebrovascular accident Current visit: No Status: Chronic Category: Medical Code(s): I69.354 - Hemiplegia and hemiparesis following cerebral infarction affecting left non- dominant side (7) History of CVA (cerebrovascular accident) Current visit: No Status: Chronic Category: Medical Code(s): Z86.73 - Personal history of transient ischemic attack (TIA), and cerebral infarction without residual deficits (8) History of left below knee amputation Current visit: No Status: Chronic Category: Medical Code(s): Z89.512 - Acquired absence of left leg below knee (9) Ischemic foot Current visit: No Status: Chronic Category: Medical Code(s): I99.8 - Other disorder of circulatory system (10) group home 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 Dr. Calloway to see patient today. Can likely be discharged home soon. Will recheck labs today. <Shawn Alva - Last Filed: 05/10/19 09:14> Internal Medicine - PN: Subj *Date: 05/10/19 *Time: 09:13 Exam Vital signs and Labs for Last 24 Hours: Temp Pulse Resp BP Pulse Ox 98.8 F 71 16 112/65 96 05/10/19 04:00 05/10/19 04:00 05/10/19 04:00 05/10/19 04:00 05/10/19 04:00 Laboratory Results - last 24 hr 05/09/19 16:55: WBC 13.0 H, RBC 4.09 L, Hgb 11.6 L, Hct 35.0 L, MCV 85.5, MCH 28.3, MCHC 33.1, RDW 17.5, Plt Count 288, MPV 8.7, Neut % (Auto) 68.2, Lymph % (Auto) 25.2, [place] % (Auto) 4.8, Eos % (Auto) 1.3, Baso % (Auto) 0.4, Neut # (Auto) 8.9 H, Lymph # (Auto) 3.3, [place] # (Auto) 0.6, Eos # (Auto) 0.2, Baso # (Auto) 0.1, ESR Cancelled 05/09/19 16:55: Sodium 132 L, Potassium 4.5, Chloride 96 L, Carbon Dioxide 27, Anion Gap 13.5, BUN 30 H, Creatinine 1.36 H, Estimated Creat Clear 59, Estimated GFR 41 L, Est GFR ( Amer) 50 L, Glucose 216 H, Calcium 8.8, Total Bilirubin 0.5, AST 25, ALT 47, Alkaline Phosphatase 109, C-Reactive Protein 0.7, Total Protein 7.8, Albumin 3.2 L, Globulin 4.6 H, Albumin/Globulin Ratio 0.7 L 05/09/19 16:55: Hemoglobin A1c 9.1 H 05/09/19 16:55: PT 26.2 H, INR 2.64 H 05/09/19 21:39: POC Glucose 420 H* 05/10/19 00:01: POC Glucose 211 H 05/10/19 05:51: POC Glucose 165 H 05/10/19 07:04: WBC 8.4 D, RBC 3.87 L, Hgb 10.8 L, Hct 33.2 L, MCV 85.8, MCH 27.9, MCHC 32.6, RDW 17.3, Plt Count 246, MPV 9.1, Neut % (Auto) 49.4, Lymph % (Auto) 39.3, [place] % (Auto) 7.3, Eos % (Auto) 3.4, Baso % (Auto) 0.6, Neut # (Auto) 4.2, Lymph # (Auto) 3.3, [place] # (Auto) 0.6, Eos # (Auto) 0.3, Baso # (Auto) 0.1 05/10/19 07:04: Sodium 132 L, Potassium 3.6, Chloride 99, Carbon Dioxide 28, Anion Gap 8.6, BUN 25 H, Creatinine 1.15 H, Estimated Creat Clear 70, Estimated GFR 50 L, Est GFR ( Amer) 60, Glucose 162 H D, Calcium 8.5, Total Bilirubin 0.5, AST 26, ALT 46, Alkaline Phosphatase 89, Total Protein 6.9, Albumin 2.8 L D, Globulin 4.1 H, Albumin/Globulin Ratio 0.7 L I & O for Last 24 hours: Intake & Output 05/07/19 05/08/19 05/09/19 05/10/19 23:59 23:59 23:59 23:59 Intake Total 60 / 60 Output Total 150 / 150 Balance -150 / -90 60 / 60 Weight 168 lb 169 lb 2 oz Microbiology Reports for the Last 24 Hours: Microbiology 05/09/19 16:55 Foot,Right - Wound Gram Stain - Final Assessment and Plan (1) Cellulitis of right toe Current visit: Yes Status: Acute Category: Medical Code(s): L03.031 - Cellulitis of right toe (2) Subungual hematoma of toe of right foot Current visit: Yes Status: Acute Category: Medical Code(s): S90.221A - Contusion of right lesser toe(s) with damage to nail, initial encounter (3) Avulsion of toenail of right foot Current visit: Yes Status: Acute Category: Medical Code(s): S91.209A - Unspecified open wound of unspecified toe(s) with damage to nail, initial encounter (4) History of amputation of lesser toe of right foot Current visit: Yes Status: Acute Category: Surgical Code(s): Z89.421 - Acquired absence of other right toe(s) (5) Diabetes mellitus Current visit: No Status: Chronic Qualifiers: Diabetes mellitus type: type 2 Diabetes mellitus 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 insulin use: 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 Diabetes mellitus complication status: with neurologic complications Diabetes mellitus complication detail: with polyneuropathy Qualified Code(s): E11.42 - Type 2 diabetes mellitus with diabetic polyneuropathy Category: Medical Code(s): E11.9 - Type 2 diabetes mellitus without complications (6) Hemiparesis affecting left side as late effect of cerebrovascular accident Current visit: No Status: Chronic Category: Medical Code(s): I69.354 - Hemiplegia and hemiparesis following cerebral infarction affecting left non- dominant side (7) History of CVA (cerebrovascular accident) Current visit: No Status: Chronic Category: Medical Code(s): Z86.73 - Personal history of transient ischemic attack (TIA), and cerebral infarction without residual deficits (8) History of left below knee amputation Current visit: No Status: Chronic Category: Medical Code(s): Z89.512 - Acquired absence of left leg below knee (9) Ischemic foot Current visit: No Status: Chronic Category: Medical Code(s): I99.8 - Other disorder of circulatory system (10) group home 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 Current visit: No Status: Chronic Category: Medical Code(s): 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 Likely home later today, plan to give 1 dose of Orbactiv tomorrow afternoon.
[2019-05-10 08:32] LABS: Basophils # 0.1 K/mm3 (0-0.2); Basophils % 0.6 % (0.1-2.0); Eosinophils # 0.3 K/mm3 (0.0-0.4); Eosinophils % 3.4 % (0.1-12.0); Hematocrit 33.2 % (37.0-47.0); Hemoglobin 10.8 g/dL (12.2-16.2); Lymphocytes # 3.3 K/mm3 (0.7-4.5); Lymphocytes % 39.3 % (10-50); Mean Corpuscular HGB Conc 32.6 g/dL (31.8-35.4); Mean Corpuscular Volume 85.8 fl (81-99); Mean Platelet Volume 9.1 fl (7.4-10.4); Monocytes # 0.6 K/mm3 (0.1-1.0); Monocytes % 7.3 % (1.7-9.3); Neutrophils # 4.2 K/mm3 (1.8-7.8); Neutrophils % 49.4 % (37.0-80.0); Platelet Count 246 K/mm3 (142-424); Red Blood Count 3.87 M/mm3 (4.20-5.40); Red Cell Distribution Width 17.3 % (11.5-17.5); White Blood Count 8.4 K/mm3 (4.8-10.8)
[2019-05-10 08:42] LABS: Albumin Level 2.8 gm/dL (3.4-5.0); Albumin/Globulin Ratio 0.7 (1.1-1.8); Anion Gap 8.6 mEq/L (5-15); Bilirubin,Total 0.5 mg/dL (0.2-1.0); Calcium 8.5 mg/dL (8.5-10.1); Globulin 4.1 gm/dl (1.3-3.2); Total Protein,Serum 6.9 gm/dL (6.4-8.2)
--- NOTE | 2019-05-10 14:41 | Discharge Summary ---
General - General Admission date:: 05/09/19 Discharge date: 05/10/19 HPI HPI: Ms. Nieto is a 53-year-old female who was recently discharged from after having an ischemic limb with angioplasty. Her mother states they were there for several days and while at , she developed a wound on her great toe. Her mother states they started her on Augmentin while at , but when she was discharged on Tuesday, she was not sent home with any antibiotics. Her mother states the wound progressed from her great toe to her second toe and she was therefore brought to [facility] to be evaluated today. She was seen by Dr. Alva and he felt she had a cellulitis and would need admission with IV antibiotics and a podiatry consult. The patient has been seen by Dr. Calloway. Dr. Calloway felt she had right second toe cellulitis and that there was a subungual hematoma and bleeding from the tips of the right first and second toes. She did remove the blister and peeling skin from the right second toe and performed nail avulsions of the first, second, and fifth toes. X-rays were ordered. She felt the patient would need to be started on IV antibiotics and she plans to follow with her to do a dressing change tomorrow. Hospital Course Hospital Course: The patient's foot x-ray showed no obvious erosive changes. She was started on Rocephin and Dr. Calloway performed nail avulsions of the first, second, and fifth toes. She tolerated the procedure well. Dr. Calloway followed up with her on 05/10/2019 and felt there were no signs of deep infection. She change the dressing on her toes. Wound culture is still pending. She felt the patient would be stable for discharge with either a dose of Orbactiv before discharge or 10 days of Bactrim or clindamycin orally. She wanted to follow-up with the aureliano kaplan in 2 weeks in her office. The patient received a dose of Rocephin on 05/09 and 05/10. She was stable to be discharged and will return tomorrow to the hospital for 1 dose of Orbactiv. She will follow-up with Dr. Alva on 05/15/2019. Objective Vital signs: Temp Pulse Resp BP Pulse Ox 98.3 F 73 16 123/70 96 05/10/19 08:00 05/10/19 08:00 05/10/19 08:00 05/10/19 08:00 05/10/19 08:00 Narrative: - Constitutional no acute distress - *Routine HEENT Exam Head: Present: normocephalic Eye: Present: EOMI, PERRL ENT: Present: mucous membranes dry - *Routine Neck Exam Present: supple. Absent: lymphadenopathy - *Routine Respiratory Exam Present: CTA bilaterally - *Routine Cardiovascular Exam Present: RRR - *Routine Abdominal Exam Present: soft, normoactive bowel sounds. Absent: tenderness - *Routine Extremities Exam Absent: cyanosis, clubbing, edema Comments: Left leg amputation, right foot with dressing in place - *Routine Skin Exam Present: warm. Absent: rash - *Routine Neurological Exam Present: alert, oriented X3 Results Labs on day of discharge: Labs from last 24 hours 05/10/19 05/10/19 05/10/19 07:04 07:04 07:04 WBC 8.4 D RBC 3.87 L Hgb 10.8 L Hct 33.2 L MCV 85.8 MCH 27.9 MCHC 32.6 RDW 17.3 Plt Count 246 MPV 9.1 Neut % (Auto) 49.4 Lymph % (Auto) 39.3 [place] % (Auto) 7.3 Eos % (Auto) 3.4 Baso % (Auto) 0.6 Neut # (Auto) 4.2 Lymph # (Auto) 3.3 [place] # (Auto) 0.6 Eos # (Auto) 0.3 Baso # (Auto) 0.1 ESR 71 H PT INR Sodium 132 L Potassium 3.6 Chloride 99 Carbon Dioxide 28 Anion Gap 8.6 BUN 25 H Creatinine 1.15 H Estimated Creat Clear 70 Estimated GFR 50 L Est GFR ( Amer) 60 Glucose 162 H D POC Glucose Hemoglobin A1c Calcium 8.5 Total Bilirubin 0.5 AST 26 ALT 46 Alkaline Phosphatase 89 C-Reactive Protein Total Protein 6.9 Albumin 2.8 L D Globulin 4.1 H Albumin/Globulin Ratio 0.7 L 05/10/19 05/10/19 05/09/19 05:51 00:01 21:39 WBC RBC Hgb Hct MCV MCH MCHC RDW Plt Count MPV Neut % (Auto) Lymph % (Auto) [place] % (Auto) Eos % (Auto) Baso % (Auto) Neut # (Auto) Lymph # (Auto) [place] # (Auto) Eos # (Auto) Baso # (Auto) ESR PT INR Sodium Potassium Chloride Carbon Dioxide Anion Gap BUN Creatinine Estimated Creat Clear Estimated GFR Est GFR ( Amer) Glucose POC Glucose 165 H 211 H 420 H* Hemoglobin A1c Calcium Total Bilirubin AST ALT Alkaline Phosphatase C-Reactive Protein Total Protein Albumin Globulin Albumin/Globulin Ratio 05/09/19 05/09/19 05/09/19 16:55 16:55 16:55 WBC RBC Hgb Hct MCV MCH MCHC RDW Plt Count MPV Neut % (Auto) Lymph % (Auto) [place] % (Auto) Eos % (Auto) Baso % (Auto) Neut # (Auto) Lymph # (Auto) [place] # (Auto) Eos # (Auto) Baso # (Auto) ESR PT 26.2 H INR 2.64 H Sodium 132 L Potassium 4.5 Chloride 96 L Carbon Dioxide 27 Anion Gap 13.5 BUN 30 H Creatinine 1.36 H Estimated Creat Clear 59 Estimated GFR 41 L Est GFR ( Amer) 50 L Glucose 216 H POC Glucose Hemoglobin A1c 9.1 H Calcium 8.8 Total Bilirubin 0.5 AST 25 ALT 47 Alkaline Phosphatase 109 C-Reactive Protein 0.7 Total Protein 7.8 Albumin 3.2 L Globulin 4.6 H Albumin/Globulin Ratio 0.7 L 05/09/19 16:55 WBC 13.0 H RBC 4.09 L Hgb 11.6 L Hct 35.0 L MCV 85.5 MCH 28.3 MCHC 33.1 RDW 17.5 Plt Count 288 MPV 8.7 Neut % (Auto) 68.2 Lymph % (Auto) 25.2 [place] % (Auto) 4.8 Eos % (Auto) 1.3 Baso % (Auto) 0.4 Neut # (Auto) 8.9 H Lymph # (Auto) 3.3 [place] # (Auto) 0.6 Eos # (Auto) 0.2 Baso # (Auto) 0.1 ESR Cancelled PT INR Sodium Potassium Chloride Carbon Dioxide Anion Gap BUN Creatinine Estimated Creat Clear Estimated GFR Est GFR ( Amer) Glucose POC Glucose Hemoglobin A1c Calcium Total Bilirubin AST ALT Alkaline Phosphatase C-Reactive Protein Total Protein Albumin Globulin Albumin/Globulin Ratio DS: Diagnosis - Discharge Diagnosis (1) Cellulitis of right toe Status: Acute (2) Subungual hematoma of toe of right foot Status: Acute (3) Avulsion of toenail of right foot Status: Acute (4) History of amputation of lesser toe of right foot Status: Acute (5) Diabetes mellitus Status: Chronic (6) Hemiparesis affecting left side as late effect of cerebrovascular accident Status: Chronic (7) History of CVA (cerebrovascular accident) Status: Chronic (8) History of left below knee amputation Status: Chronic (9) Ischemic foot Status: Chronic (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 (11) Peripheral arterial occlusive disease Status: Chronic Discharge Plan - Patient Discharge Instructions ACTIVITY: Continue current activity DIET: continue same diet Additional Instructions: Daily epsom salt water soaks of toes, pat dry and cover nail beds with either triple antibiotic ointment or Betadine Patient Instructions: DI for Cellulitis -- Adult, Warfarin, Coumadin Vitamin K/ Diet, Coumadin Therapy Booklet - Follow up Plan Follow up with: Shawn Alva MD [Primary Care Provider] - 05/15/19 Disposition: Home, Self-Senior Living Medications: Home Medications Medication Instructions Recorded Confirmed Type amiloride 5 mg tablet 10 mg PO DAILY 09/22/17 05/09/19 History aspirin 25 mg-dipyridamole 200 mg 1 cap PO BID 09/22/17 05/09/19 History capsule,ext.release 12 hr multiphase baclofen 10 mg tablet 10 mg PO DAILY 09/22/17 05/10/19 History clopidogrel 75 mg tablet 75 mg PO DAILY 09/22/17 05/09/19 History glimepiride 2 mg tablet 2 mg PO DAILY 09/22/17 05/09/19 History metolazone 5 mg tablet 5 mg PO DAILY 09/22/17 05/09/19 History Baclofen [Lioresal 10mg tablet] 20 mg PO HS 11/20/17 05/09/19 History Citalopram Hydrobromide [Celexa 20 mg PO DAILY 11/20/17 05/09/19 History 20mg Tablet] Donepezil HCl [Aricept 5mg 5 mg PO HS 04/14/18 05/09/19 History Tablet] Potassium Chloride 60 meq PO TID 04/14/18 05/10/19 History Spironolactone [Aldactone 25mg 25 mg PO DAILY 04/14/18 05/09/19 History Tab] Furosemide [Furosemide 40MG tAB] 40 mg PO DAILY 04/15/18 05/09/19 History warfarin 5 mg tablet 5 mg PO SUTUWEFRSA@1100 tab 08/17/18 05/10/19 History insulin lispro (U-100) 100 unit/mL 15 unit SQ AC ml 10/17/18 05/09/19 History subcutaneous pen cholecalciferol (vitamin D3) 1,000 1,000 unit PO DAILY 04/19/19 05/09/19 History unit capsule Linagliptin/Metformin HCl 1 each PO BID 05/09/19 05/09/19 History [Jentadueto 2.5 mg-1000 mg Tab] Metoprolol Tartrate [Lopressor 25 mg PO DAILY 05/09/19 05/10/19 History 25mg tablet] Insulin Detemir [Levemir 40 unit SQ DAILY #0 05/10/19 05/09/19 Rx 100units/mL 3mL flexpen] Loratadine [Claritin] 10 mg PO DAILY 05/10/19 05/10/19 History Rosuvastatin Calcium [Crestor 20 20 mg PO HS 05/10/19 05/10/19 History mg Tablets] Warfarin Sodium 7.5 mg PO MOTH@1100 05/10/19 05/10/19 History Prescriptions/Medication Reconciliation: Continued baclofen 10 mg tablet 10 mg PO DAILY amiloride 5 mg tablet 10 mg PO DAILY aspirin 25 mg-dipyridamole 200 mg capsule,ext.release 12 hr multiphase 1 cap PO BID clopidogrel 75 mg tablet 75 mg PO DAILY warfarin 5 mg tablet 5 mg PO SUTUWEFRSA@1100 tab cholecalciferol (vitamin D3) 1,000 unit capsule 1,000 unit PO DAILY metolazone 5 mg tablet 5 mg PO DAILY glimepiride 2 mg tablet 2 mg PO DAILY insulin lispro (U-100) 100 unit/mL subcutaneous pen 15 unit SQ AC ml Citalopram Hydrobromide [Celexa 20mg Tablet] 20 mg PO DAILY Spironolactone [Aldactone 25mg Tab] 25 mg PO DAILY Potassium Chloride 60 meq PO TID Donepezil HCl [Aricept 5mg Tablet] 5 mg PO HS Metoprolol Tartrate [Lopressor 25mg tablet] 25 mg PO DAILY Loratadine [Claritin] 10 mg PO DAILY Warfarin Sodium 7.5 mg PO MOTH@1100 Baclofen [Lioresal 10mg tablet] 20 mg PO HS Furosemide [Furosemide 40MG tAB] 40 mg PO DAILY Linagliptin/Metformin HCl [Jentadueto 2.5 mg-1000 mg Tab] 1 each PO BID Rosuvastatin Calcium [Crestor 20 mg Tablets] 20 mg PO HS Changed Insulin Detemir [Levemir 100units/mL 3mL flexpen] 40 unit SQ DAILY #0 - Problem Reconciliation Problems Reviewed?: Yes
== END 2019-05-10 15:53 | disposition home or self-care (01) ==
LOC: 2ND
PROVIDERS: ADMIT Family Medicine; ATTEND Family Medicine
CPT/HCPCS: 11730; 11732; 36415; 73630; 80053; 82962; 83036; 85025; 85610; 85651; 86140; 87070; 87077; 87186; 87205; G0378

== ENCOUNTER 2019-05-11 14:32 | Outpatient (CLI) | payer MEDICARE, MEDICAID, SELFPAY ==
[2019-05-11 14:50] VITALS: BP 118/74; PULSE 68; RESP 20; TEMP 36.9
[2019-05-11 15:20] VITALS: BP 120/74; PULSE 68; RESP 20; TEMP 36.7; O2SAT 95
[2019-05-11 15:50] VITALS: BP 122/74; PULSE 74; RESP 20
[2019-05-11 16:20] VITALS: BP 118/70; PULSE 68; RESP 20; TEMP 36.9
[2019-05-11 17:27] VITALS: BP 112/74; PULSE 68; RESP 20; TEMP 36.9
[2019-05-11 18:55] VITALS: BP 116/70; PULSE 72; RESP 20; TEMP 36.8; O2SAT 95
== END 2019-05-11 18:55 | disposition home or self-care (01) ==
LOC: INF 14:32
PROVIDERS: Visit Provider Family Medicine
DX: L03.031 Cellulitis of right toe (principal)
CPT/HCPCS: 96365; 96366; J2407

== ENCOUNTER → 2019-07-02 12:10 | Outpatient (CLI) | payer MEDICARE, MEDICAID, SELFPAY ==
--- NOTE | 2019-07-02 12:14 | XR_ITS ---
PROCEDURE: XR FOOT RT MIN 3V CLINICAL INDICATION: RT FOOT PAIN Right foot pain COMPARISON: [id number] XR foot wt bearing RT 3V from 03/30/2018 [id number] XR foot RT min 3V from 06/01/2018 [id number] XR foot RT min 3V from 07/06/2018 XR FOOT RT MIN 3V from 05/09/2019 FINDINGS: No fracture or dislocation. No lytic or blastic change. There is normal mineralization. There are mild osteoarthritic changes at the ankle joint. There has been prior amputation at the 3rd and 4th metatarsophalangeal joints. Mild osteoarthritis is present at 1st MTP joint. There are hypertrophic changes at the plantar surface of the calcaneus. No acute fracture or dislocation. Vascular calcification noted. Other findings:None. IMPRESSION: Prior amputation at the 3rd and 4th MTP joint with degenerative changes Dictated by: Almas Flynn MD 07/02/2019 13:41 Electronically signed by Almas Flynn MD in [facility] 07/02/2019 13:41
== END ==
PROVIDERS: PCP Family Medicine; Visit Provider Family Medicine
DX: M79.671 Pain in right foot (principal)
CPT/HCPCS: 73630

== ENCOUNTER → 2019-07-10 14:28 | Outpatient (CLI) | payer MEDICARE, MEDICAID, SELFPAY ==
[2019-07-10 15:11] LABS: Basophils % 0.4 % (0.1-2.0); Eosinophils # 0.2 K/mm3 (0.0-0.4); Hemoglobin 11.9 g/dL (12.2-16.2); Lymphocytes # 3.2 K/mm3 (0.7-4.5); Lymphocytes % 31.2 % (10-50); Mean Corpuscular HGB Conc 31.3 g/dL (31.8-35.4); Mean Corpuscular Hemoglobin 26.4 pg (27.0-31.2); Mean Corpuscular Volume 84.3 fl (81-99); Mean Platelet Volume 7.9 fl (7.4-10.4); Monocytes # 0.5 K/mm3 (0.1-1.0); Monocytes % 5.1 % (1.7-9.3); Neutrophils # 6.4 K/mm3 (1.8-7.8); Neutrophils % 61.4 % (37.0-80.0); Platelet Count 391 K/mm3 (142-424); Red Blood Count 4.51 M/mm3 (4.20-5.40); Red Cell Distribution Width 17.1 % (11.5-17.5); White Blood Count 10.3 K/mm3 (4.8-10.8)
[2019-07-10 15:58] LABS: Alanine Aminotransferase 34 U/L (12-78); Albumin Level 3.4 gm/dL (3.4-5.0); Albumin/Globulin Ratio 0.8 (1.1-1.8); Alkaline Phosphatase 96 U/L (46-116); Anion Gap 21.1 mEq/L (5-15); Aspartate Amino Transferase 50 U/L (15-37); Bilirubin,Total 0.3 mg/dL (0.2-1.0); Blood Urea Nitrogen 32 mg/dL (7-18); Calcium 9.3 mg/dL (8.5-10.1); Carbon Dioxide 24 mmol/L (21.0-32.0); Chloride 98 mmol/L (98-107); Creatinine,Serum 1.13 mg/dL (0.55-1.02); Estimated Glomerular Filt Rate 51 ml/min (>60); GFR (African American) 61 ML/MIN (>60); Globulin 4.5 gm/dl (1.3-3.2); Glucose 119 mg/dL (74-106); Potassium 4.1 mmoL/L (3.5-5.1); Sodium 139 mmol/L (136-145); Total Protein,Serum 7.9 gm/dL (6.4-8.2)
== END ==
PROVIDERS: Visit Provider Family Medicine
DX: M79.604 Pain in right leg (principal); I73.9 Peripheral vascular disease, unspecified; Z79.899 Other long term (current) drug therapy
CPT/HCPCS: 36415; 80053; 85025

== ENCOUNTER → 2019-07-11 10:24 | Outpatient (CLI) | payer MEDICARE, MEDICAID, SELFPAY ==
--- NOTE | 2019-07-11 10:29 | CT_ITS ---
Procedure: CT ANGIO LE BI CLINICAL HISTORY: PAD, RT LEG PAIN COMPARISON: No exams were available for comparison TECHNIQUE: IV Contrast: 100ml Optiray 350 Axial images obtained with sagittal and coronal reformats. All CT scans at the facility use one or more dose reduction, viz: automated exposure control, ma/kV adjustment per patient size (including targeted exams where dose is matched to indication, i.e. head), or iterative reconstruction technique. FINDINGS: Postsurgical change from median sternotomy is noted. There is fatty infiltration of the liver. Nodule of the left adrenal gland 1.3 centimeters is noted. Adenoma is favored. Postsurgical change from cholecystectomy is noted. A 1.6 centimeter hypodensity with some questionable enhancement not fulfilling criteria for a benign simple cyst is seen in the posterior right kidney on image 41 series 3. Follow-up is recommended. Consider ultrasound assessment. A 1.8 centimeter left ovarian cyst is noted. The uterus is enlarged with calcified fibroids. A few scattered diverticula are noted without diverticulitis. There has been below-knee amputation at the left lower extremity. Widespread atherosclerosis is noted. The abdominal aorta is widely patent. A small amount of calcified atherosclerotic plaque is seen at the origin of the celiac artery and the right renal artery. No significant stenoses are apparent. Single bilateral renal arteries are noted. The inferior mesenteric artery appears patent. There is an approximately 50-75 percent luminal stenosis of the right superficial femoral artery in the mid thigh. There is also 50-75 percent luminal stenosis of the distal right superficial femoral artery. A short segment of 50-75 percent luminal stenosis of the mid left superficial femoral artery and the popliteal artery are noted. There is high-grade stenosis of the right popliteal artery at least 50-75 percent. Bilateral tibioperoneal trunks are patent. Flow in the right peroneal artery to the level of the mid calf is apparent. There is 2 vessel runoff to the right foot via the anterior and posterior tibial arteries. IMPRESSION: Atherosclerosis as described with 50-75 percent luminal stenosis bilateral superficial femoral arteries and popliteal arteries. Hemodynamically significant stenoses are suspected. Two vessel runoff to the right foot. Non-cystic nodule right kidney, and left adrenal nodule, and left ovarian cyst requiring follow-up. Dictated by: Nomi Serra 07/11/2019 12:54 Electronically signed by Nomi Serra in [facility] 07/11/2019 12:54
== END ==
PROVIDERS: PCP Family Medicine; Visit Provider Family Medicine
DX: M79.604 Pain in right leg (principal); I73.9 Peripheral vascular disease, unspecified
CPT/HCPCS: 73701; Q9967

== ENCOUNTER 2019-07-22 22:06 | Observation (INO) ==
--- NOTE | 2019-07-22 22:38 | Emergency Department Note ---
ED Disposition Clinical Impression: Arterial insufficiency of lower extremity Disposition: Admitted as Observation Condition on Discharge: Serious Referrals: Shawn Alva MD [Primary Care Provider] - - Critical Care Critical Care Time: No Attestation: On 07/22/19, the high probability of a clinically significant, sudden or life threatening deterioration of the following system(s) required my full and direct attention, intervention and personal management. The time I documented below is in addition to time spent performing reported procedures but includes the following listed in this critical care notation. Medical Decision Making - Medical Records Medical records reviewed: Yes: I reviewed the patient's medical records. - Carlo Inquiry Pt receiving controlled substance: No Vital Signs: 07/22/19 22:26 Temperature 98.1 F Temperature Source Oral Pulse Rate [Right Radial] 84 Respiratory Rate 18 Blood Pressure [Right Arm] 141/71 H Blood Pressure Mean [Right Arm] 94 02 Sat by Pulse Oximetry 95 Oxygen Delivery Method Room Air - Lab Data Lab results reviewed: Yes: I reviewed the patient's lab results. Lab Results 07/22/19 22:39: WBC 9.0, RBC 3.72 L, Hgb 10.1 L, Hct 32.5 L, MCV 87.3, MCH 27.0, MCHC 31.0 L, RDW 17.0, Plt Count 382, MPV 7.9, Neut % (Auto) 66.2, Lymph % (Auto) 25.3, [place] % (Auto) 6.5, Eos % (Auto) 1.6, Baso % (Auto) 0.4, Neut # (Auto) 6.0, Lymph # (Auto) 2.3, [place] # (Auto) 0.6, Eos # (Auto) 0.1, Baso # (Auto) 0.0, ESR > 140 H 07/22/19 22:39: PT 26.0 H, INR 2.62 H, APTT 67.2 H* 07/22/19 22:39: Sodium 135 L, Potassium 3.8, Chloride 95 L, Carbon Dioxide 29, Anion Gap 14.8, BUN 30 H, Creatinine 1.70 H, Estimated Creat Clear 46, Estimated GFR 32 L, Est GFR ( Amer) 38 L, Glucose 409 H*, Calcium 9.1, Total Bilirubin 0.3, AST 33, ALT 30, Alkaline Phosphatase 89, C-Reactive Protein 14.6 H, Total Protein 8.4 H, Albumin 3.0 L, Globulin 5.4 H, Albumin/Globulin Ratio 0.6 L 07/22/19 22:39: Lactate 2.0 Result diagrams: 07/22/19 22:39 07/22/19 22:39 Orders (Tests/Meds): ORDERS Category Date Time Status Foot XR right minimum 3 views [XR foot RT min 3V] Stat Exams 07/22/19 22:50 Taken Blood Culture Stat Micro 07/22/19 22:39 Received - ECG Data Tracing #1 Normal Sinus Rhythm: Yes Ischemic changes: non-specific ST-T wave changes - Physician Consults Physician Consulted: jessica Reason -: Admission Additional Consult: poppy Reason -: Pt condition General Adult HPI - General Chief complaint: PAIN Stated complaint: rash on leg possibly gonna loose leg, nose bleed Time Seen by Provider: 07/22/19 22:35 Mode of Arrival: Wheelchair Source of Information: Patient, Relative, Medical Record Limitations: Physical Limitations Description of Symptoms (Recalled from ER Triage Doc. by RN): Right lower extremity pain and swelling for 2-3 weeks. patient's right great toe and right second toe are swollen and discolored. hx of diabetes. patient also states she has had a nosebleed all day today. family states that the patient is scheduled to see Dr. Padilla tomorrow regarding RLE. - History of Present Illness HPI narrative: swelling and pain rt lower leg with hx of art insuff and diabetes Onset (ago): day(s) Location: lower extremity Severity: severe Quality: sharp Consistency: intermittent Associated symptoms: denies other symptoms Treatments prior to arrival: none - Related Data Home Medications Medication Instructions Recorded Confirmed amiloride 5 mg tablet 10 mg PO DAILY 09/22/17 07/22/19 aspirin 25 mg-dipyridamole 200 mg 1 cap PO BID 09/22/17 07/22/19 capsule,ext.release 12 hr multiphase baclofen 10 mg tablet 10 mg PO DAILY 09/22/17 07/22/19 clopidogrel 75 mg tablet 75 mg PO DAILY 09/22/17 07/22/19 glimepiride 2 mg tablet 2 mg PO DAILY 09/22/17 07/22/19 metolazone 5 mg tablet 5 mg PO DAILY 09/22/17 07/22/19 Baclofen [Lioresal 10mg tablet] 20 mg PO HS 11/20/17 07/22/19 Citalopram Hydrobromide [Celexa 20 mg PO DAILY 11/20/17 07/22/19 20mg Tablet] Donepezil HCl [Aricept 5mg 5 mg PO HS 04/14/18 07/22/19 Tablet] Potassium Chloride 60 meq PO TID 04/14/18 07/22/19 Spironolactone [Aldactone 25mg 25 mg PO DAILY 04/14/18 07/22/19 Tab] Furosemide [Furosemide 40MG tAB] 40 mg PO DAILY 04/15/18 07/22/19 warfarin 5 mg tablet 5 mg PO SUTUWEFRSA@1100 tab 08/17/18 07/22/19 insulin lispro 100 unit/mL 15 unit SQ AC ml 10/17/18 07/22/19 subcutaneous pen cholecalciferol (vitamin D3) 25 1,000 unit PO DAILY 04/19/19 07/22/19 mcg (1,000 unit) capsule Linagliptin/Metformin HCl 1 each PO BID 05/09/19 07/22/19 [Jentadueto 2.5 mg-1000 mg Tab] Metoprolol Tartrate [Lopressor 25 mg PO DAILY 05/09/19 07/22/19 25mg tablet] Loratadine [Claritin] 10 mg PO DAILY 05/10/19 07/22/19 Rosuvastatin Calcium [Crestor 20 20 mg PO HS 05/10/19 07/22/19 mg Tablets] Warfarin Sodium 7.5 mg PO MOTH@1100 05/10/19 07/22/19 Previous Rx's Medication Instructions Recorded Insulin Detemir [Levemir 40 unit SQ DAILY #0 05/10/19 100units/mL 3mL flexpen] Allergies Allergy/AdvReac Type Severity Reaction Status Date / Time azithromycin Allergy Intermediate S-DIFF. Verified 07/22/19 22:51 BREATHING daptomycin [DAPTOMYCIN] Allergy Intermediate I-RASH/ITCH Verified 07/22/19 22:51 ING levofloxacin Allergy Intermediate I-RASH Verified 07/22/19 22:51 Penicillins Allergy Intermediate I-HIVES Verified 07/22/19 22:51 [facility] History - Hepatitis A Screen Drug use history?: No High risk sexual behaviors?: No History of sexually transmitted infection?: No Currently employed?: No Childcare worker?: No Do you have indoor plumbing?: Yes Do you have electricity?: Yes Attestation statement:: This patient has been screened for Hepatitis A risk factors. I have reviewed the patient's past medical history: Yes Medical History: Reports:: Cancer, Coronary Artery Disease, Cerebrovascular Accident, Deep Vein Thrombosis, Diabetes Mellitus Type 2, Gall Bladder Disease, Hyperlipidemia, Hypertension, MRSA, Myocardial Infarction, Peripheral Vascular Disease, Renal Disease, Renal Insufficiency, Transient Ischemic Attacks (TIA), Urinary Tract Infection Denies:: Asthma, Chronic Obstructive Pulmonary Disease (COPD), Diabetes Mellitus Type 1, Internal Pacemaker, Lung Disease, Seizures Other Medical History: Reports: Chemotherapy, Sinus Problems, Other. Denies: Blood Transfusion Reaction Laterality Cases: Right: Mastectomy, Other, Bilateral: Carpal Tunnel Release Other Surgeries: Yes: Cancer Surgery, Cardiac Catheterization, Cardiac Surgery, Cholecystectomy, Colonoscopy, Coronary Stent, , Open Heart Surgery, Tubal Ligation, Other (amputee left leg and right toes). No: Pacemaker Amputation: Yes (Left BKA 06/23/14; 4th toe right foot 2016) Fractures: No Comment: right limb angioplasty - Social History Smoking Status: Never smoker # Packs/Day (cigarettes): 0 #Yrs smoked (if former smoker): 0 Alcohol Intake: never Alcohol Intake Frequency:: other Substance Use Type: denies use Occupational Status: unemployed Housing: house Household Members: family Family Hx:: Cancer, Diabetes, Heart Attack, Hyperlipidemia, Hypertension Comment: 1 son was stillborn ROS Obtained: Yes All systems reviewed & no additional complaints - Constitutional Constitutional: Denies fever(s) - Eyes Eyes: Denies change in vision - ENT Ears, Nose, Mouth, and Throat: Denies sore throat - Cardiovascular Cardiovascular: Denies chest pain, Denies dyspnea - Respiratory Respiratory: No cough - Gastrointestinal Gastrointestingal: Denies: abdominal pain - Genitourinary Female Genitourinary: Denies hematuria - Musculoskeletal Musculoskeletal: Reports as per HPI, Reports joint pain, Reports joint swelling, Reports radiating pain into limb - Integumentary/Breasts Skin/Breast: Reports as per HPI, Reports other (chronic changes ) - Neurologic Neurologic: Denies seizure-like activity Physical Exam - General General appearance: alert, in no apparent distress, obese - Head Head exam: normocephalic - Eye Eye exam: Present: PERRL, EOMI. Absent: scleral icterus - ENT ENT exam: Present: mucous membranes dry - Neck Neck exam: Present: trachea midline - Respiratory Respiratory exam: Present: other (dec bs bilat ). Absent: respiratory distress - Cardiovascular Cardiovascular exam: Present: regular rate, systolic murmur, +S4 - Abdominal Exam Abdominal exam: Present: soft - Expanded Lower Extremity Exam Right Lower leg exam: Present: tenderness, swelling. Absent: full ROM Neurovascular/Tendon exam: Present: pulse deficit, sensory deficit. Absent: normal capillary refill, normal 2-point discrimination - Neurological Exam Neurological exam: Present: alert, CN II-XII intact - Psychiatric Psychiatric exam: Present: normal affect - Skin Skin exam: Present: other (chronic changes rt lower leg with prev aka on lt with popiteal pulse but no distal pulse )
[2019-07-22 22:56] LABS: Basophils % 0.4 % (0.1-2.0); Eosinophils # 0.1 K/mm3 (0.0-0.4); Eosinophils % 1.6 % (0.1-12.0); Hematocrit 32.5 % (37.0-47.0); Hemoglobin 10.1 g/dL (12.2-16.2); Lymphocytes # 2.3 K/mm3 (0.7-4.5); Lymphocytes % 25.3 % (10-50); Mean Corpuscular Volume 87.3 fl (81-99); Mean Platelet Volume 7.9 fl (7.4-10.4); Monocytes # 0.6 K/mm3 (0.1-1.0); Monocytes % 6.5 % (1.7-9.3); Neutrophils % 66.2 % (37.0-80.0); Platelet Count 382 K/mm3 (142-424); Red Blood Count 3.72 M/mm3 (4.20-5.40)
[2019-07-22 23:09] LABS: INR 2.62 (0.9-1.1)
[2019-07-22 23:12] LABS: Albumin/Globulin Ratio 0.6 (1.1-1.8); Anion Gap 14.8 mEq/L (5-15); Bilirubin,Total 0.3 mg/dL (0.2-1.0); Calcium 9.1 mg/dL (8.5-10.1); Globulin 5.4 gm/dl (1.3-3.2); Total Protein,Serum 8.4 gm/dL (6.4-8.2)
[2019-07-22 23:13] LABS: Activated Partial Thrombo Time 67.2 seconds (23.6-34.0)
[2019-07-22 23:14] LABS: C-Reactive Protein 14.6 mg/dL (0.0-0.9)
[2019-07-22 23:25] LABS: Erythrocyte Sedimentation Rate > 140 mm/hr (0-30)
[2019-07-23 06:13] LABS: Basophils % 0.4 % (0.1-2.0); Eosinophils # 0.1 K/mm3 (0.0-0.4); Eosinophils % 1.3 % (0.1-12.0); Hematocrit 33.3 % (37.0-47.0); Hemoglobin 10.3 g/dL (12.2-16.2); Lymphocytes # 1.9 K/mm3 (0.7-4.5); Lymphocytes % 21.9 % (10-50); Mean Corpuscular Volume 84.9 fl (81-99); Mean Platelet Volume 8.9 fl (7.4-10.4); Monocytes # 0.6 K/mm3 (0.1-1.0); Monocytes % 7.3 % (1.7-9.3); Neutrophils # 6.1 K/mm3 (1.8-7.8); Platelet Count 364 K/mm3 (142-424); Red Blood Count 3.91 M/mm3 (4.20-5.40); Red Cell Distribution Width 16.7 % (11.5-17.5); White Blood Count 8.8 K/mm3 (4.8-10.8)
[2019-07-23 06:25] LABS: Anion Gap 15.6 mEq/L (5-15); Calcium 9.1 mg/dL (8.5-10.1)
[2019-07-23 06:26] LABS: INR 2.27 (0.9-1.1); Prothrombin Time 22.7 seconds (9.4-11.8)
--- NOTE | 2019-07-23 07:16 | Pharmacy Consult Notes ---
[facility] Pharmacy VTE Monitoring - Patient Demographics Admission date: 07/22/19 Report Date: 07/23/19 Time: 07:16 Allergies/Adverse Reactions: Patient Allergies azithromycin Allergy (Intermediate, Verified 07/22/19 22:51) S-DIFF. BREATHING daptomycin [DAPTOMYCIN] Allergy (Intermediate, Verified 07/22/19 22:51) I-RASH/ITCHING levofloxacin Allergy (Intermediate, Verified 07/22/19 22:51) I-RASH Penicillins Allergy (Intermediate, Verified 07/22/19 22:51) I-HIVES Height: 1.52 m Weight: 75.41 kg Patient Problems: Current Active Problems Arterial insufficiency of lower extremity (Acute) - VTE Risk Labs: VTE Related Lab Results Hgb 10.3 g/dL (12.2-16.2) L 07/23/19 06:07 Hct 33.3 % (37.0-47.0) L 07/23/19 06:07 Plt Count 364 K/mm3 (142-424) 07/23/19 06:07 PT 22.7 seconds (9.4-11.8) H 07/23/19 06:07 INR 2.27 (0.9-1.1) H 07/23/19 06:07 APTT 67.2 seconds (23.6-34.0) H* 07/22/19 22:39 BUN 31 mg/dL (7-18) H 07/23/19 06:07 Creatinine 1.39 mg/dL (0.55-1.02) H 07/23/19 06:07 Estimated Creat Clear 58 mL/min (50-200) 07/23/19 06:07 VTE Score: 10 VTE Risk Level: Moderate Risk - Prophylaxis VTE Prophylaxis Ordered?: Yes Types of VTE Prophylaxis: TEDS Knee High Location of Applied Device: Bilateral Lower Extremeties
--- NOTE | 2019-07-23 07:53 | Consult Report ---
History of Present Illness Consult date: 07/23/19 Chief complaint: right foot pain, purple toes Additional Medical History:: 1. CAD A. 5 vessel CABG, about 2008, [facility] in [facility] [place]. Wound dehiscense and pseudomonas infection with sepsis. B. MA prior to CABG. C. Cardiac cath, 10/2015, Patent JACOBSEN to LAD, single vessel disease of 2.5 mm PDA, normal LVEF with mildly elevated LVEDP. Pt was treated medically so she could have left breast lumpectomy with plans for more definitive therapy thereafter. D. Claudio myoview, 11/2016, Normal LVEF with ischemia in the anterior apical and anterior lateral telles. Medical therapy recommended due to similar results 10/2015 with cath noted above. 2. Diabetes, treated for > 20 yrs 3. HTN 4. CVA, melissa-operatively in 2008, left side affected. 5. PAD A. Left BKA, 06/2015 B. Right SFA bare metal stenting, 10/2016 C. right ischemic 3rd toe, 03/2018 D. Right SFA and popliteal drug balloon angioplasty, 03/2018 6. History of DVT's, on chronic Coumadin therapy. 7. History of right breast cancer, s/p surgery and breast reconstruction with im plant that was later removed. A. Left breast mass removed, 11/2015 8. CKD, stage 3 A. Cr 1.2 with GFR 48 in 2016 History of present illness: 53-year-old white female with history as noted above presented to the emergency department for evaluation of worsening right foot pain with purplish toes over the last 3 days. Patient with known peripheral vascular disease and prior right SFA and popliteal drug-eluting balloon angioplasty in March 2018 and reportedly repeat vascular intervention at the [facility] within the last 2 to 3 months. Patient has a prior left BKA and has limited mobility. Discoloration of the toes is new and painful and was concerning enough to prompt ER evaluation. She was seen last week by Dr. Crowe with plans to see Dr. Padilla today for consideration of peripheral angioplasty and repeat intervention. EKG is sinus rhythm with no acute ST segment changes. [facility] History Medical History: Reports:: Cancer, Coronary Artery Disease, Cerebrovascular Accident, Deep Vein Thrombosis, Diabetes Mellitus Type 2, Gall Bladder Disease, Hyperlipidemia, Hypertension, MRSA, Myocardial Infarction, Peripheral Vascular Disease, Renal Disease, Renal Insufficiency, Transient Ischemic Attacks (TIA), Urinary Tract Infection Denies:: Asthma, Chronic Obstructive Pulmonary Disease (COPD), Diabetes Mellitus Type 1, Internal Pacemaker, Lung Disease, Seizures *Have you ever received a pneumonia vaccine?: No *Have you received a flu vaccine this season?: Yes Other Medical History: Reports: Arthritis, Chemotherapy, Sinus Problems, Other. Denies: Blood Transfusion Reaction Laterality Cases: Right: Mastectomy, Other, Bilateral: Carpal Tunnel Release Other Surgeries: Yes: Cancer Surgery, Cardiac Catheterization, Cardiac Surgery, Cholecystectomy, Colonoscopy, Coronary Stent, , Open Heart Surgery, Tubal Ligation, Other (amputee left leg and right toes). No: Pacemaker Amputation: Yes (Left BKA 06/23/14; 4th toe right foot 2016) Fractures: No - *Social History Educational Level: Attended College Smoking Status: Never smoker # Packs/Day (cigarettes): 0 #Yrs smoked (if former smoker): 0 Alcohol Intake: never Alcohol Intake Frequency:: other Substance Use Type: denies use *Occupational Status:: disabled Housing: house Household Members: family *Travel in the last 8 weeks: None Family Hx:: Heart Attack Meds Home Medications Medication Instructions Recorded Confirmed Type amiloride 5 mg tablet 10 mg PO DAILY 09/22/17 07/22/19 History aspirin 25 mg-dipyridamole 200 mg 1 cap PO BID 09/22/17 07/22/19 History capsule,ext.release 12 hr multiphase baclofen 10 mg tablet 10 mg PO DAILY 09/22/17 07/22/19 History clopidogrel 75 mg tablet 75 mg PO DAILY 09/22/17 07/23/19 History glimepiride 2 mg tablet 2 mg PO DAILY 09/22/17 07/23/19 History metolazone 5 mg tablet 5 mg PO DAILY 09/22/17 07/23/19 History Baclofen [Lioresal 10mg tablet] 10 mg PO HS 11/20/17 07/23/19 History Citalopram Hydrobromide [Celexa 20 mg PO DAILY 11/20/17 07/22/19 History 20mg Tablet] Donepezil HCl [Aricept 5mg 5 mg PO HS 04/14/18 07/22/19 History Tablet] Potassium Chloride 60 meq PO TID 04/14/18 07/22/19 History Spironolactone [Aldactone 25mg 25 mg PO DAILY 04/14/18 07/22/19 History Tab] Furosemide [Furosemide 40MG tAB] 40 mg PO DAILY 04/15/18 07/22/19 History warfarin 5 mg tablet 5 mg PO DIRECTED tab 08/17/18 07/23/19 History cholecalciferol (vitamin D3) 25 1,000 unit PO DAILY 04/19/19 07/22/19 History mcg (1,000 unit) capsule Linagliptin/Metformin HCl 1 each PO BID 05/09/19 07/22/19 History [Jentadueto 2.5 mg-1000 mg Tab] Metoprolol Tartrate [Lopressor 25 mg PO DAILY 05/09/19 07/22/19 History 25mg tablet] Insulin Detemir [Levemir 40 unit SQ DAILY #0 05/10/19 07/23/19 Rx 100units/mL 3mL flexpen] Loratadine [Claritin] 10 mg PO DAILY 05/10/19 07/22/19 History Rosuvastatin Calcium [Crestor 20 20 mg PO HS 05/10/19 07/22/19 History mg Tablets] Warfarin Sodium 7.5 mg PO DIRECTED 05/10/19 07/23/19 History Allergies Allergy/AdvReac Type Severity Reaction Status Date / Time azithromycin Allergy Intermediate S-DIFF. Verified 07/22/19 22:51 BREATHING daptomycin [DAPTOMYCIN] Allergy Intermediate I-RASH/ITCH Verified 07/22/19 22:51 ING levofloxacin Allergy Intermediate I-RASH Verified 07/22/19 22:51 Penicillins Allergy Intermediate I-HIVES Verified 07/22/19 22:51 Review of Systems - Review of Systems Review of systems:: pertinent systems reviewed and negative unless documented below - *Cardiovascular Denies chest pain - *Respiratory Denies shortness of breath - *Gastrointestinal Denies abdominal pain, Denies nausea, Denies vomiting - *Genitourinary Denies blood in urine - *Musculoskeletal Denies joint pain, Denies back pain Comments: right foot pain - *Neurologic Denies seizure-like activity, Denies fainting, Denies tingling Exam Vital signs and Labs for Last 24 Hours: Temp Pulse Resp BP Pulse Ox 98.7 F 81 25 H 146/81 H 92 L 07/23/19 04:00 07/23/19 04:00 07/23/19 04:00 07/23/19 04:00 07/23/19 04:00 Laboratory Results - last 24 hr 07/22/19 22:39: WBC 9.0, RBC 3.72 L, Hgb 10.1 L, Hct 32.5 L, MCV 87.3, MCH 27.0, MCHC 31.0 L, RDW 17.0, Plt Count 382, MPV 7.9, Neut % (Auto) 66.2, Lymph % (Auto) 25.3, [place] % (Auto) 6.5, Eos % (Auto) 1.6, Baso % (Auto) 0.4, Neut # (Auto) 6.0, Lymph # (Auto) 2.3, [place] # (Auto) 0.6, Eos # (Auto) 0.1, Baso # (Auto) 0.0, ESR > 140 H 07/22/19 22:39: PT 26.0 H, INR 2.62 H, APTT 67.2 H* 07/22/19 22:39: Sodium 135 L, Potassium 3.8, Chloride 95 L, Carbon Dioxide 29, Anion Gap 14.8, BUN 30 H, Creatinine 1.70 H, Estimated Creat Clear 46, Estimated GFR 32 L, Est GFR ( Amer) 38 L, Glucose 409 H*, Calcium 9.1, Total Bilirubin 0.3, AST 33, ALT 30, Alkaline Phosphatase 89, C-Reactive Protein 14.6 H, Total Protein 8.4 H, Albumin 3.0 L, Globulin 5.4 H, Albumin/Globulin Ratio 0.6 L 07/22/19 22:39: Lactate 2.0 07/23/19 00:22: POC Glucose 418 H* 07/23/19 05:45: POC Glucose 300 H 07/23/19 06:07: WBC 8.8, RBC 3.91 L, Hgb 10.3 L, Hct 33.3 L, MCV 84.9, MCH 26.4 L, MCHC 31.0 L, RDW 16.7, Plt Count 364, MPV 8.9, Neut % (Auto) 69.0, Lymph % (Auto) 21.9, [place] % (Auto) 7.3, Eos % (Auto) 1.3, Baso % (Auto) 0.4, Neut # (Auto) 6.1, Lymph # (Auto) 1.9, [place] # (Auto) 0.6, Eos # (Auto) 0.1, Baso # (Auto) 0.0 07/23/19 06:07: PT 22.7 H, INR 2.27 H 07/23/19 06:07: Sodium 137, Potassium 3.6, Chloride 98, Carbon Dioxide 27, Anion Gap 15.6 H, BUN 31 H, Creatinine 1.39 H, Estimated Creat Clear 58, Estimated GFR 40 L, Est GFR ( Amer) 48 L D, Glucose 308 H D, Calcium 9.1 I & O for Last 24 hours: Intake & Output 07/20/19 07/21/19 07/22/19 07/23/19 11:59 11:59 11:59 11:59 Intake Total 173 / 173 Balance 173 / 173 Weight 166 lb 4 oz - *Routine HEENT Exam Head: Present: normocephalic Eye: Present: EOMI, PERRL ENT: Present: mucous membranes moist - *Routine Neck Exam Present: supple. Absent: JVD, carotid bruit - *Routine Respiratory Exam Present: CTA bilaterally. Absent: accessory muscle use, rales, rhonchi, wheezes - *Routine Cardiovascular Exam Present: RRR, murmur. Absent: gallop, rubs - *Routine Abdominal Exam Present: soft. Absent: tenderness, distended, guarding - *Routine Extremities Exam Absent: edema, calf tenderness - *Routine Neurological Exam Present: alert, oriented X3, moving all extremities Assessment and Plan (1) Peripheral arterial occlusive disease Current visit: No Status: Chronic Category: Medical Code(s): I77.9 - Disorder of arteries and arterioles, unspecified (2) Discoloration of skin of foot Current visit: No Status: Acute Category: Medical Code(s): L81.9 - Disorder of pigmentation, unspecified (3) History of CVA (cerebrovascular accident) Current visit: No Status: Chronic Category: Medical Code(s): Z86.73 - Personal history of transient ischemic attack (TIA), and cerebral infarction without residual deficits (4) Hyperlipidemia Current visit: No Status: Chronic Qualifiers: Hyperlipidemia type: unspecified Qualified Code(s): E78.5 - Hyperlipidemia, unspecified Category: Medical Code(s): E78.5 - Hyperlipidemia, unspecified (5) Hypertensive heart disease without heart failure Current visit: No Status: Chronic Category: Medical Code(s): I11.9 - Hypertensive heart disease without heart failure (6) local [employer] 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 Current visit: No Status: Chronic Category: Medical Code(s): Z79.01 - assisted (current) use of 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 (7) Type 2 diabetes mellitus with diabetic neuropathy, with long-term current use of insulin Current visit: No Status: Chronic Category: Medical Code(s): E11.40 - Type 2 diabetes mellitus with diabetic neuropathy, unspecified; 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 Plan to proceed with RLE angiogram with consideration for angioplasty. 2. Continue ASA, plavix and coumadin. INR 2.27 today. 3. Further recommendations to follow.
--- NOTE | 2019-07-23 08:22 | History & Physical Report ---
*Admission Date: 07/22/19 <Keisha Pedersen - 07/23/19 08:22> *Chief complaint: Right leg pain <Keisha Pedersen - 07/23/19 08:22> *History of present illness: .Ms. Nieto is a 53-year-old female with a difficult history to include Coronary artery disease, status post PA 2008,Type 2 diabetes mellitus, hypertension, CVA with residual left-sided weakness. Right breast cancer with mastectomy, DVT of bilateral lower extremities, sepsis in 2008, peripheral artery disease with angioplasty on the right, ischemic right third toe amputation, stenting of the right SFA 10/2016, left below the knee amputation in June 2015 who presented to [facility] last p.m. after experiencing increasing pain in her right lower extremity. She has been taking Tylenol for the pain. Family has noticed some red spots on the lower anterior leg and discoloration of the right great toe. She was also complaining of nosebleed from the left nostril throughout the day. She states she has had a Cold with rhinorrhea. She was evaluated in the emergency room and pulse deficit was noted on the right leg. Patient's right great toe and right second toe were noted to be swollen and discolored.They also noted that she was to see Dr. Padilla today regarding her right lower extremity . Was seen in the office of [facility] on 07/[facility]2019 and had a CTA of bilateral extremities on 07/11/2019 that showed atherosclerosis of the right superficial femoral anterior and distal arteries as well as the popliteal artery. Patient was hospitalized in [facility] in April and was told there was nothing else that they could do for vascular changes in the right lower extremity. It was suggested that she have the leg removed. She refused at this time. Patient is feeling somewhat better today. She feels that her respiratory symptoms have improved. She says the pain in her leg is slightly better this a.m. She has had no further nosebleeds. Patient has been seen by cardiology with plans for Right lower extremity angiogram with consideration for angioplasty. Will need to continue with her aspirin, Plavix and Coumadin. INR today is noted to be 2.27. <Keisha Pedersen - 07/23/19 09:06> [facility] [place] History Medical History: Reports:: Atherosclerotic Heart Disease, Cancer, Coronary Artery Disease, Cerebrovascular Accident, Deep Vein Thrombosis, Depression, Diabetes Mellitus Type 2, Gall Bladder Disease, Heart Murmur, Hyperlipidemia, Hypertension, MRSA, Myocardial Infarction, Peripheral Artery Disease, Peripheral Vascular Disease, Renal Disease, Renal Insufficiency, Transient Ischemic Attacks (TIA), Urinary Tract Infection Denies:: Asthma, Chronic Obstructive Pulmonary Disease (COPD), Diabetes Mellitus Type 1, Internal Pacemaker, Lung Disease, Seizures <Keisha Pedersen 07/23/19 09:06> *Have you ever received a pneumonia vaccine?: No <Keisha Pedersen 07/23/19 08:22> *Have you received a flu vaccine this season?: Yes <Keisha Pedersen 07/23/19 08:22> Other Medical History: Reports: Arthritis, Chemotherapy, Sinus Problems, Other. Denies: Blood Transfusion Reaction <Keisha Pedersen 07/23/19 08:22> Laterality Cases: Left: Lumpectomy, Right: Mastectomy, Other, Bilateral: Carpal Tunnel Release <Keisha Pedersen 07/23/19 09:06> Other Surgeries: Yes: Cancer Surgery, Cardiac Catheterization, Cardiac Surgery, Cholecystectomy, Colonoscopy, Coronary Stent, , Open Heart Surgery, Tubal Ligation, Other (amputee left leg and right toes). No: Pacemaker <Keisha Pedersen 07/23/19 08:22> Amputation: Yes (Left BKA 06/23/14; 4th toe right foot 2016) <Keisha Pedersen 07/23/19 09:06> Fractures: No <Keisha Pedersen 07/23/19 08:22> Comment: Right third toe amputation 2017 <Keisha Pedersen 07/23/19 09:06> - *Social History Educational Level: Attended College <Keisha Pedersen 07/23/19 08:22> Smoking Status: Never smoker <Keisha Pedersen 07/23/19 08:22> # Packs/Day (cigarettes): 0 <Keisha Pedersen 07/23/19 08:22> #Yrs smoked (if former smoker): 0 <Keisha Pedersen 07/23/19 08:22> Alcohol Intake: never <Keisha Pedersen 07/23/19 08:22> Alcohol Intake Frequency:: other <Keisha Pedersen 07/23/19 08:22> Substance Use Type: denies use <Keisha Pedersen 07/23/19 08:22> *Occupational Status:: disabled <Keisha Pedersen 07/23/19 08:22> Housing: house <Keisha Pedersen 07/23/19 08:22> Household Members: family <Keisha Pedersen 07/23/19 08:22> *Travel in the last 8 weeks: None <Keisha Pedersen 07/23/19 08:22> Family Hx:: Heart Attack <Keisha Pedersen 07/23/19 08:22> Review of Systems - Constitutional Denies fever(s), Denies headache(s) <NuviaKeisha 07/23/19 09:06> Comments: States hot all the time <Keisha Pedersen 07/23/19 09:06> - Eyes Denies change in vision <PedersenKeisha 07/23/19 09:06> - ENT Reports ear pain, Reports nosebleed (Left nostril), Reports nasal congestion, Reports nasal discharge, Denies dizziness, Denies sore throat <Keisha Pedersen 07/23/19 09:06> - *Cardiovascular Reports leg swelling, Reports leg sores, Reports foot swelling (Right), Denies chest pain, Denies shortness of breath, Denies rapid, pounding, or irregular heartbeat <Keisha Pedersen 07/23/19 09:06> - *Respiratory Reports cough, Denies chest congestion, Denies shortness of breath, Denies coughing up blood <PedersenKeisha 07/23/19 09:06> - *Gastrointestinal Denies abdominal pain, Denies change in bowel habits, Denies constipation, Denies vomiting blood, Denies nausea, Denies vomiting <NuviaKeisha 07/23/19 09:06> - *Genitourinary Denies difficulty urinating <NuviaKeisha 07/23/19 09:06> - *Musculoskeletal Reports muscle cramps, Reports muscle weakness (Was unable to bear weight on her right leg with transfer last night.) <Pedersen,Keisha 07/23/19 09:06> - *Neurologic Denies headache(s), Denies seizure-like activity, Denies fainting, Denies tingling <Keisha Pedersen - 07/23/19 09:06> Meds Home Medications Medication Instructions Recorded Confirmed Type amiloride 5 mg tablet 10 mg PO DAILY 09/22/17 07/22/19 History aspirin 25 mg-dipyridamole 200 mg 1 cap PO BID 09/22/17 07/22/19 History capsule,ext.release 12 hr multiphase baclofen 10 mg tablet 10 mg PO DAILY 09/22/17 07/22/19 History clopidogrel 75 mg tablet 75 mg PO DAILY 09/22/17 07/23/19 History glimepiride 2 mg tablet 2 mg PO DAILY 09/22/17 07/23/19 History metolazone 5 mg tablet 5 mg PO DAILY 09/22/17 07/23/19 History Baclofen [Lioresal 10mg tablet] 10 mg PO HS 11/20/17 07/23/19 History Citalopram Hydrobromide [Celexa 20 mg PO DAILY 11/20/17 07/22/19 History 20mg Tablet] Donepezil HCl [Aricept 5mg 5 mg PO HS 04/14/18 07/22/19 History Tablet] Potassium Chloride 60 meq PO TID 04/14/18 07/22/19 History Spironolactone [Aldactone 25mg 25 mg PO DAILY 04/14/18 07/22/19 History Tab] Furosemide [Furosemide 40MG tAB] 40 mg PO DAILY 04/15/18 07/22/19 History warfarin 5 mg tablet 5 mg PO SUTUWEFRSA tab 08/17/18 07/23/19 History cholecalciferol (vitamin D3) 25 1,000 unit PO DAILY 04/19/19 07/22/19 History mcg (1,000 unit) capsule Linagliptin/Metformin HCl 1 each PO BID 05/09/19 07/22/19 History [Jentadueto 2.5 mg-1000 mg Tab] Metoprolol Tartrate [Lopressor 25 mg PO DAILY 05/09/19 07/22/19 History 25mg tablet] Insulin Detemir [Levemir 40 unit SQ DAILY #0 05/10/19 07/23/19 Rx 100units/mL 3mL flexpen] Loratadine [Claritin] 10 mg PO DAILY 05/10/19 07/22/19 History Rosuvastatin Calcium [Crestor 20 20 mg PO HS 05/10/19 07/22/19 History mg Tablets] Warfarin Sodium 7.5 mg PO MOTH 05/10/19 07/23/19 History <Shawn Alva - 07/23/19 09:22> Allergies Allergy/AdvReac Type Severity Reaction Status Date / Time azithromycin Allergy Intermediate S-DIFF. Verified 07/22/19 22:51 BREATHING daptomycin [DAPTOMYCIN] Allergy Intermediate I-RASH/ITCH Verified 07/22/19 22:51 ING levofloxacin Allergy Intermediate I-RASH Verified 07/22/19 22:51 Penicillins Allergy Intermediate I-HIVES Verified 07/22/19 22:51 <Shawn Alva - 07/23/19 09:22> Exam Vital signs and Labs for Last 24 Hours: Temp Pulse Resp BP Pulse Ox 98.2 F 76 22 144/88 H 95 07/23/19 08:00 07/23/19 08:00 07/23/19 08:00 07/23/19 08:00 07/23/19 08:00 Laboratory Results - last 24 hr 07/22/19 22:39: WBC 9.0, RBC 3.72 L, Hgb 10.1 L, Hct 32.5 L, MCV 87.3, MCH 27.0, MCHC 31.0 L, RDW 17.0, Plt Count 382, MPV 7.9, Neut % (Auto) 66.2, Lymph % (Auto) 25.3, [place] % (Auto) 6.5, Eos % (Auto) 1.6, Baso % (Auto) 0.4, Neut # (Auto) 6.0, Lymph # (Auto) 2.3, [place] # (Auto) 0.6, Eos # (Auto) 0.1, Baso # (Auto) 0.0, ESR > 140 H 07/22/19 22:39: PT 26.0 H, INR 2.62 H, APTT 67.2 H* 07/22/19 22:39: Sodium 135 L, Potassium 3.8, Chloride 95 L, Carbon Dioxide 29, Anion Gap 14.8, BUN 30 H, Creatinine 1.70 H, Estimated Creat Clear 46, Estimated GFR 32 L, Est GFR ( Amer) 38 L, Glucose 409 H*, Calcium 9.1, Total Bilirubin 0.3, AST 33, ALT 30, Alkaline Phosphatase 89, C-Reactive Protein 14.6 H, Total Protein 8.4 H, Albumin 3.0 L, Globulin 5.4 H, Albumin/Globulin Ratio 0.6 L 07/22/19 22:39: Lactate 2.0 07/23/19 00:22: POC Glucose 418 H* 07/23/19 05:45: POC Glucose 300 H 07/23/19 06:07: WBC 8.8, RBC 3.91 L, Hgb 10.3 L, Hct 33.3 L, MCV 84.9, MCH 26.4 L, MCHC 31.0 L, RDW 16.7, Plt Count 364, MPV 8.9, Neut % (Auto) 69.0, Lymph % (Auto) 21.9, [place] % (Auto) 7.3, Eos % (Auto) 1.3, Baso % (Auto) 0.4, Neut # (Auto) 6.1, Lymph # (Auto) 1.9, [place] # (Auto) 0.6, Eos # (Auto) 0.1, Baso # (Auto) 0.0 07/23/19 06:07: PT 22.7 H, INR 2.27 H 07/23/19 06:07: Sodium 137, Potassium 3.6, Chloride 98, Carbon Dioxide 27, Anion Gap 15.6 H, BUN 31 H, Creatinine 1.39 H, Estimated Creat Clear 58, Estimated GFR 40 L, Est GFR ( Amer) 48 L D, Glucose 308 H D, Calcium 9.1 <Shawn Alva - 07/23/19 09:22> Temp Pulse Resp BP Pulse Ox 98.7 F 81 25 H 146/81 H 92 L 07/23/19 04:00 07/23/19 04:00 07/23/19 04:00 07/23/19 04:00 07/23/19 04:00 Laboratory Results - last 24 hr 07/22/19 22:39: WBC 9.0, RBC 3.72 L, Hgb 10.1 L, Hct 32.5 L, MCV 87.3, MCH 27.0, MCHC 31.0 L, RDW 17.0, Plt Count 382, MPV 7.9, Neut % (Auto) 66.2, Lymph % (Auto) 25.3, [place] % (Auto) 6.5, Eos % (Auto) 1.6, Baso % (Auto) 0.4, Neut # (Auto) 6.0, Lymph # (Auto) 2.3, [place] # (Auto) 0.6, Eos # (Auto) 0.1, Baso # (Auto) 0.0, ESR > 140 H 07/22/19 22:39: PT 26.0 H, INR 2.62 H, APTT 67.2 H* 07/22/19 22:39: Sodium 135 L, Potassium 3.8, Chloride 95 L, Carbon Dioxide 29, Anion Gap 14.8, BUN 30 H, Creatinine 1.70 H, Estimated Creat Clear 46, Estimated GFR 32 L, Est GFR ( Amer) 38 L, Glucose 409 H*, Calcium 9.1, Total Bilirubin 0.3, AST 33, ALT 30, Alkaline Phosphatase 89, C-Reactive Protein 14.6 H, Total Protein 8.4 H, Albumin 3.0 L, Globulin 5.4 H, Albumin/Globulin Ratio 0.6 L 07/22/19 22:39: Lactate 2.0 07/23/19 00:22: POC Glucose 418 H* 07/23/19 05:45: POC Glucose 300 H 07/23/19 06:07: WBC 8.8, RBC 3.91 L, Hgb 10.3 L, Hct 33.3 L, MCV 84.9, MCH 26.4 L, MCHC 31.0 L, RDW 16.7, Plt Count 364, MPV 8.9, Neut % (Auto) 69.0, Lymph % (Auto) 21.9, [place] % (Auto) 7.3, Eos % (Auto) 1.3, Baso % (Auto) 0.4, Neut # (Auto) 6.1, Lymph # (Auto) 1.9, [place] # (Auto) 0.6, Eos # (Auto) 0.1, Baso # (Auto) 0.0 07/23/19 06:07: PT 22.7 H, INR 2.27 H 07/23/19 06:07: Sodium 137, Potassium 3.6, Chloride 98, Carbon Dioxide 27, Anion Gap 15.6 H, BUN 31 H, Creatinine 1.39 H, Estimated Creat Clear 58, Estimated GFR 40 L, Est GFR ( Amer) 48 L D, Glucose 308 H D, Calcium 9.1 <Keisha Pedersen 07/23/19 08:22> I & O for Last 24 hours: Intake & Output 07/20/19 07/21/19 07/22/19 07/23/19 23:59 23:59 23:59 23:59 Intake Total 173 / 173 Balance 173 / 173 Weight 168 lb 2 oz 166 lb 4 oz <Shawn Alva - 07/23/19 09:22> Intake & Output 07/20/19 07/21/19 07/22/19 07/23/19 11:59 11:59 11:59 11:59 Intake Total 173 / 173 Balance 173 / 173 Weight 166 lb 4 oz <Keisha Pedersen - 07/23/19 08:22> Radiology Reports for the Last 24 Hours: 07/22/2019 x-ray of right foot IMPRESSION: Soft tissue swelling. Prior amputation 3rd and 4th toes. No acute bony findings <Keisha Pedersen 07/23/19 09:06> - Constitutional no acute distress <Keisha Pedersen 07/23/19 09:06> Comments: Appears comfortable lying in the bed. <Keisha Pedersen 07/23/19 09:06> - *Routine HEENT Exam Head: Present: normocephalic, atraumatic <Keisha Pedersen 07/23/19 09:06> Eye: Present: PERRL. Absent: conjunctival icterus, scleral injection <Keisha Pedersen 07/23/19 09:06> ENT: Present: mucous membranes moist, oropharynx clear, nares patent, TM's clear bilaterally <Keisha Pedersen 07/23/19 09:06> - *Routine Neck Exam Present: supple. Absent: carotid bruit, lymphadenopathy, thyromegaly <Keisha Pedersen 07/23/19 09:06> - *Routine Respiratory Exam Present: CTA bilaterally (Anteriorly and posteriorly) <Keisha Pedersen 07/23/19 09:06> - *Routine Cardiovascular Exam Present: RRR, murmur <Keisha Pedersen 07/23/19 09:06> - *Routine Abdominal Exam Present: soft, normoactive bowel sounds, obese. Absent: tenderness, guarding <Keisha Pedersen 07/23/19 09:06> - *Routine Extremities Exam Present: edema (Right lower leg.). Absent: pulses intact <Keisha Pedersen 07/23/19 09:06> Comments: Right lower leg with 2 x 4 cm anterior lower leg erythema. Nontender to palpation today. Also some erythema above the ankle. Unable to palpate pedal pulses. Great toe is black with discoloration/erythema of the second toe. Positive for edema. Right foot is also edematous. <Keisha Pedersen 07/23/19 09:06> - *Routine Neurological Exam Present: alert, oriented X3 <Keisha Pedersen 07/23/19 09:06> Assessment and Plan (1) Peripheral arterial occlusive disease Current visit: No Status: Chronic Category: Medical Code(s): I77.9 - Disorder of arteries and arterioles, unspecified (2) Discoloration of skin of foot Current visit: No Status: Acute Category: Medical Code(s): L81.9 - Di sorder of pigmentation, unspecified (3) History of CVA (cerebrovascular accident) Current visit: No Status: Chronic Category: Medical Code(s): Z86.73 - Personal history of transient ischemic attack (TIA), and cerebral infarction without residual deficits (4) Hyperlipidemia Current visit: No Status: Chronic Qualifiers: Hyperlipidemia type: unspecified Qualified Code(s): E78.5 - Hyperlipidemia, unspecified Category: Medical Code(s): E78.5 - Hyperlipidemia, unspecified (5) Hypertensive heart disease without heart failure Current visit: No Status: Chronic Category: Medical Code(s): I11.9 - Hypertensive heart disease without heart failure (6) nursing home 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 Current visit: No Status: Chronic Category: Medical Code(s): Z79.01 - nursing home (current) use of 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 (7) Type 2 diabetes mellitus with diabetic neuropathy, with long-term current use of insulin Current visit: No Status: Chronic Category: Medical Code(s): E11.40 - Type 2 diabetes mellitus with diabetic neuropathy, unspecified; Z79.4 - long term care administrator (current) use of insulin (8) Anemia Current visit: No Status: Chronic Qualifiers: Anemia type: unspecified type Qualified Code(s): D64.9 - Anemia, unspecified Category: Medical Code(s): D64.9 - Anemia, unspecified (9) History of left below knee amputation Current visit: No Status: Chronic Category: Medical Code(s): Z89.512 - Acquired absence of left leg below knee (10) Obesity (BMI 30.0-34.9) Current visit: No Status: Chronic Category: Medical Code(s): E66.9 - Obesity, unspecified <Shawn Alva - 07/23/19 09:22> (1) Peripheral arterial occlusive disease Current visit: No Status: Chronic Category: Medical Code(s): I77.9 - Disorder of arteries and arterioles, unspecified (2) Discoloration of skin of foot Current visit: No Status: Acute Category: Medical Code(s): L81.9 - D isorder of pigmentation, unspecified (3) History of CVA (cerebrovascular accident) Current visit: No Status: Chronic Category: Medical Code(s): Z86.73 - Personal history of transient ischemic attack (TIA), and cerebral infarction without residual deficits (4) Hyperlipidemia Current visit: No Status: Chronic Qualifiers: Hyperlipidemia type: unspecified Qualified Code(s): E78.5 - Hyperlipidemia, unspecified Category: Medical Code(s): E78.5 - Hyperlipidemia, unspecified (5) Hypertensive heart disease without heart failure Current visit: No Status: Chronic Category: Medical Code(s): I11.9 - Hypertensive heart disease without heart failure (6) long term care administrator 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 Current visit: No Status: Chronic Category: Medical Code(s): Z79.01 - long term care administrator (current) use of 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 (7) Type 2 diabetes mellitus with diabetic neuropathy, with long-term current use of insulin Current visit: No Status: Chronic Category: Medical Code(s): E11.40 - Type 2 diabetes mellitus with diabetic neuropathy, unspecified; Z79.4 - nursing home (current) use of insulin (8) Anemia Current visit: No Status: Chronic Qualifiers: Anemia type: unspecified type Qualified Code(s): D64.9 - Anemia, unspecified Category: Medical Code(s): D64.9 - Anemia, unspecified (9) History of left below knee amputation Current visit: No Status: Chronic Category: Medical Code(s): Z89.512 - Acquired absence of left leg below knee (10) Obesity (BMI 30.0-34.9) Current visit: No Status: Chronic Category: Medical Code(s): E66.9 - Obesity, unspecified <Keisha Pedersen - 07/23/19 08:29> - Assessment and plan all Dx Assessment and Plan for all problems:: Saw patient, agree with above note. <Shawn Alva - 07/23/19 09:22> Patient has been seen by cardiology with plans for Right lower extremity angiogram with consideration for angioplasty. Will need to continue with her aspirin, Plavix and Coumadin. Maintain comfort. Blood sugar control with sliding scale. <Keisha Pedersen - 07/23/19 09:06>
--- NOTE | 2019-07-23 13:43 | Electrocardiograph Report ---
APPROVED REPORT Exam: Resting ECG HR:82 bpm ECG Measurements Heart Rate 82 AXES GA 144 P 17 QRSd 90 QRS 40 QT 398 T113 QTc 464 <Conclusion> Normal sinus rhythm ST & T wave abnormality, consider lateral ischemia Incomplete RBBB Prolonged QT Abnormal ECG Electronically signed by : Armin Koenig, 07/23/2019 13:43:20
[2019-07-23 19:14] LABS: Microscopic, Urine URINE MICROSCOPIC (MICROSCOPIC)
[2019-07-23 19:55] LABS: Appearance,Urine CLEAR (Clear); Bilirubin,Urine Negative (Negative); Blood, Urine TRACE-L (Negative); Color,Urine YELLOW (Yellow); Glucose,Urine (UA) 3+ (Negative); Ketones,Urine Negative (Negative); Leukocyte Esterase,Urine Negative (Negative); PH,Urine 5.5 (5.0-8.5); Protein,Urine Negative (Negative); Urobilinogen,Urine 0.2 EU/dl (0.2)
[2019-07-23 20:29] LABS: WBC,Urine Occasional #/hpf (0-3)
[2019-07-23 20:30] LABS: Bacteria,Urine Trace /lpf
[2019-07-24 07:35] LABS: INR 1.7 (0.9-1.1); Prothrombin Time 17.2 seconds (9.4-11.8)
--- NOTE | 2019-07-24 07:59 | Progress Note ---
<Keisha Pedersen - Last Filed: 07/24/19 07:55> Internal Medicine - PN: Subj *Date: 07/24/19 *Time: 07:55 Interval history: Patient states pain in her right foot and leg has improved. She did sleep at intervals. She is eating without problems. She is voiding QS. She denies chest pain and shortness of breath. Patient states she had a fever last night and again this morning. 07/23/2019 PROCEDURES Left femoral arterial access;Right superficial femoral artery angiogram; Right popliteal artery angiogram ;Bare-metal stent deployment in the anterior tibial trunk; Bare-metal stent deployment to the right superficial femoral artery; Impression of acute on chronic occlusion of the right superficial femoral artery and right popliteal artery and right AT trunk. Successful revascularization and baptism of antegrade flow to the above arteries reducing the subtotal occlusions to 0% with bare-metal stents and balloon angioplasty Blood sugars have been elevated. She was restarted back on Levemir yesterday. Exam Vital signs and Labs for Last 24 Hours: Temp Pulse Resp BP Pulse Ox 98.7 F 89 17 130/80 98 07/24/19 04:00 07/24/19 04:00 07/24/19 04:00 07/24/19 04:00 07/24/19 04:00 Laboratory Results - last 24 hr 07/23/19 11:05: Activated Clotting Time > 400 H* 07/23/19 12:12: POC Glucose 243 H 07/23/19 17:08: POC Glucose 227 H 07/23/19 18:51: Urine Color Yellow, Urine Appearance Clear, Urine pH 5.5, Ur Specific [place] 1.020, Urine Protein Negative, Urine Glucose (UA) 3+, Urine Ketones Negative, Urine Blood Trace-l, Urine Nitrate Negative, Urine Bilirubin Negative, Urine Urobilinogen 0.2, Ur Leukocyte Esterase Negative, Urine WBC Occasional, Ur Squamous Epith Cells 3-5, Urine Bacteria Trace 07/23/19 21:09: POC Glucose 439 H* 07/24/19 05:55: POC Glucose 308 H* 07/24/19 06:40: PT 17.2 H, INR 1.70 H I & O for Last 24 hours: Intake & Output 07/21/19 07/22/19 07/23/19 07/24/19 11:59 11:59 11:59 11:59 Intake Total 173 / 173 0 / 0 Balance 173 / 173 0 / 0 Weight 166 lb 4 oz 166 lb 4.009 oz - Constitutional no acute distress Comments: Patient completed breakfast. She appears comfortable - *Routine Respiratory Exam Present: CTA bilaterally (Anteriorly and posteriorly) - *Routine Cardiovascular Exam Present: RRR - *Routine Abdominal Exam Present: normoactive bowel sounds, obese. Absent: tenderness - *Routine Extremities Exam Present: edema Comments: Right foot great toe and second toe with dark erythema. Tender to palpation. Continues with edema of the foot. Unable to feel pedal pulses although nursing documents 1+ pulses. - *Routine Neurological Exam Present: alert, oriented X3 Assessment and Plan (1) Peripheral arterial occlusive disease Current visit: No Status: Chronic Category: Medical Code(s): I77.9 - Disorder of arteries and arterioles, unspecified (2) Discoloration of skin of foot Current visit: No Status: Acute Category: Medical Code(s): L81.9 - Disorder of pigmentation, unspecified (3) History of CVA (cerebrovascular accident) Current visit: No Status: Chronic Category: Medical Code(s): Z86.73 - Personal history of transient ischemic attack (TIA), and cerebral infarction without residual deficits (4) Hyperlipidemia Current visit: No Status: Chronic Qualifiers: Hyperlipidemia type: unspecified Qualified Code(s): E78.5 - Hyperlipidemia, unspecified Category: Medical Code(s): E78.5 - Hyperlipidemia, unspecified (5) Hypertensive heart disease without heart failure Current visit: No Status: Chronic Category: Medical Code(s): I11.9 - Hypertensive heart disease without heart failure (6) MCC 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 Current visit: No Status: Chronic Category: Medical Code(s): Z79.01 - MCC (current) use of 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 (7) Type 2 diabetes mellitus with diabetic neuropathy, with long-term current use of insulin Current visit: No Status: Chronic Category: Medical Code(s): E11.40 - Type 2 diabetes mellitus with diabetic neuropathy, unspecified; Z79.4 - MCC (current) use of insulin (8) Anemia Current visit: No Status: Chronic Qualifiers: Anemia type: unspecified type Qualified Code(s): D64.9 - Anemia, unspecified Category: Medical Code(s): D64.9 - Anemia, unspecified (9) History of left below knee amputation Current visit: No Status: Chronic Category: Medical Code(s): Z89.512 - Acquired absence of left leg below knee (10) Obesity (BMI 30.0-34.9) Current visit: No Status: Chronic Category: Medical Code(s): E66.9 - Obesity, unspecified - Assessment and plan all Dx Assessment and Plan for all problems:: CBC this a.m. ; blood sugars remain elevated. Renal function slightly improved. Rest of diabetic medicines restarted as well as spironolactone and Crestor. Will discuss further treatment for right lower extremity with Dr. Alva. <Shawn Alva - Last Filed: 07/24/19 09:14> Internal Medicine - PN: Subj *Date: 07/24/19 *Time: 09:13 Exam Vital signs and Labs for Last 24 Hours: Temp Pulse Resp BP Pulse Ox 98.8 F 93 H 18 141/64 H 93 L 07/24/19 08:00 07/24/19 08:00 07/24/19 08:00 07/24/19 08:00 07/24/19 08:00 Laboratory Results - last 24 hr 07/23/19 11:05: Activated Clotting Time > 400 H* 07/23/19 12:12: POC Glucose 243 H 07/23/19 17:08: POC Glucose 227 H 07/23/19 18:51: Urine Color Yellow, Urine Appearance Clear, Urine pH 5.5, Ur Specific [place] 1.020, Urine Protein Negative, Urine Glucose (UA) 3+, Urine Ketones Negative, Urine Blood Trace-l, Urine Nitrate Negative, Urine Bilirubin Negative, Urine Urobilinogen 0.2, Ur Leukocyte Esterase Negative, Urine WBC Occasional, Ur Squamous Epith Cells 3-5, Urine Bacteria Trace 07/23/19 21:09: POC Glucose 439 H* 07/24/19 05:55: POC Glucose 308 H* 07/24/19 06:40: PT 17.2 H, INR 1.70 H 07/24/19 06:40: WBC 9.6, RBC 3.70 L, Hgb 9.7 L, Hct 31.7 L, MCV 85.7, MCH 26.1 L , MCHC 30.4 L, RDW 16.7, Plt Count 343, MPV 7.7, Neut % (Auto) 77.9, Lymph % (Auto) 13.0, [place] % (Auto) 6.8, Eos % (Auto) 2.1, Baso % (Auto) 0.2, Neut # (Auto) 7.5, Lymph # (Auto) 1.2, [place] # (Auto) 0.7, Eos # (Auto) 0.2, Baso # (Auto) 0.0 I & O for Last 24 hours: Intake & Output 07/21/19 07/22/19 07/23/19 07/24/19 23:59 23:59 23:59 23:59 Intake Total 173 / 173 360 / 360 Balance 173 / 173 360 / 360 Weight 168 lb 2 oz 166 lb 4 oz 166 lb 4.009 oz Assessment and Plan (1) Peripheral arterial occlusive disease Current visit: No Status: Chronic Category: Medical Code(s): I77.9 - Disorder of arteries and arterioles, unspecified (2) Discoloration of skin of foot Current visit: No Status: Acute Category: Medical Code(s): L81.9 - Disorder of pigmentation, unspecified (3) History of CVA (cerebrovascular accident) Current visit: No Status: Chronic Category: Medical Code(s): Z86.73 - Personal history of transient ischemic attack (TIA), and cerebral infarction without residual deficits (4) Hyperlipidemia Current visit: No Status: Chronic Qualifiers: Hyperlipidemia type: unspecified Qualified Code(s): E78.5 - Hyperlipidemia, unspecified Category: Medical Code(s): E78.5 - Hyperlipidemia, unspecified (5) Hypertensive heart disease without heart failure Current visit: No Status: Chronic Category: Medical Code(s): I11.9 - Hypertensive heart disease without heart failure (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 Current visit: No Status: Chronic Category: Medical Code(s): Z79.01 - MCC (current) use of 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 (7) Type 2 diabetes mellitus with diabetic neuropathy, with long-term current use of insulin Current visit: No Status: Chronic Category: Medical Code(s): E11.40 - Type 2 diabetes mellitus with diabetic neuropathy, unspecified; Z79.4 - MCC (current) use of insulin (8) Anemia Current visit: No Status: Chronic Qualifiers: Anemia type: unspecified type Qualified Code(s): D64.9 - Anemia, unspecified Category: Medical Code(s): D64.9 - Anemia, unspecified (9) History of left below knee amputation Current visit: No Status: Chronic Category: Medical Code(s): Z89.512 - Acquired absence of left leg below knee (10) Obesity (BMI 30.0-34.9) Current visit: No Status: Chronic Category: Medical Code(s): E66.9 - Obesity, unspecified - Assessment and plan all Dx Assessment and Plan for all problems:: Saw patient, agree with above note, increase Levemir dose today, possible discharge later today.
[2019-07-24 08:04] LABS: Basophils % 0.2 % (0.1-2.0); Eosinophils # 0.2 K/mm3 (0.0-0.4); Eosinophils % 2.1 % (0.1-12.0); Hematocrit 31.7 % (37.0-47.0); Hemoglobin 9.7 g/dL (12.2-16.2); Lymphocytes # 1.2 K/mm3 (0.7-4.5); Mean Corpuscular HGB Conc 30.4 g/dL (31.8-35.4); Mean Corpuscular Volume 85.7 fl (81-99); Mean Platelet Volume 7.7 fl (7.4-10.4); Monocytes # 0.7 K/mm3 (0.1-1.0); Monocytes % 6.8 % (1.7-9.3); Neutrophils # 7.5 K/mm3 (1.8-7.8); Neutrophils % 77.9 % (37.0-80.0); Platelet Count 343 K/mm3 (142-424); Red Cell Distribution Width 16.7 % (11.5-17.5); White Blood Count 9.6 K/mm3 (4.8-10.8)
--- NOTE | 2019-07-24 09:18 | Progress Note ---
Subjective Date: 07/24/19 Time: 09:15 Principal diagnosis: PAD Interval history: 53 yo WF in bed in NAD. Relates some RLE pain since stenting yesterday but foot is warmer today. Some swelling noted. First two toes still with some purplish discoloration. Exam Vital signs and Labs for Last 24 Hours: Temp Pulse Resp BP Pulse Ox 98.8 F 93 H 18 141/64 H 93 L 07/24/19 08:00 07/24/19 08:00 07/24/19 08:00 07/24/19 08:00 07/24/19 08:00 Laboratory Results - last 24 hr 07/23/19 11:05: Activated Clotting Time > 400 H* 07/23/19 12:12: POC Glucose 243 H 07/23/19 17:08: POC Glucose 227 H 07/23/19 18:51: Urine Color Yellow, Urine Appearance Clear, Urine pH 5.5, Ur Specific [place] 1.020, Urine Protein Negative, Urine Glucose (UA) 3+, Urine Ketones Negative, Urine Blood Trace-l, Urine Nitrate Negative, Urine Bilirubin Negative, Urine Urobilinogen 0.2, Ur Leukocyte Esterase Negative, Urine WBC Occasional, Ur Squamous Epith Cells 3-5, Urine Bacteria Trace 07/23/19 21:09: POC Glucose 439 H* 07/24/19 05:55: POC Glucose 308 H* 07/24/19 06:40: PT 17.2 H, INR 1.70 H 07/24/19 06:40: WBC 9.6, RBC 3.70 L, Hgb 9.7 L, Hct 31.7 L, MCV 85.7, MCH 26.1 L , MCHC 30.4 L, RDW 16.7, Plt Count 343, MPV 7.7, Neut % (Auto) 77.9, Lymph % (Auto) 13.0, [place] % (Auto) 6.8, Eos % (Auto) 2.1, Baso % (Auto) 0.2, Neut # (Auto) 7.5, Lymph # (Auto) 1.2, [place] # (Auto) 0.7, Eos # (Auto) 0.2, Baso # (Auto) 0.0 I & O for Last 24 hours: Intake & Output 07/21/19 07/22/19 07/23/19 07/24/19 11:59 11:59 11:59 11:59 Intake Total 173 / 173 360 / 360 Balance 173 / 173 360 / 360 Weight 166 lb 4 oz 166 lb 4.009 oz - *Routine Respiratory Exam Present: CTA bilaterally. Absent: accessory muscle use, rales, rhonchi, wheezes - *Routine Cardiovascular Exam Present: RRR. Absent: murmur, gallop, rubs - *Routine Extremities Exam Present: edema. 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 OK for discharge home on home meds including Aggrenox, plavix and warfarin. 2. Follow up in our office in 1-2 wks.
--- NOTE | 2019-07-26 08:46 | Discharge Summary ---
General - General Admission date:: 07/22/19 Discharge date: 07/24/19 HPI HPI: .Ms. Nieto is a 53-year-old female with a difficult history to include Coronary artery disease, status post PR 2008,Type 2 diabetes mellitus, hypertension, CVA with residual left-sided weakness, Right breast cancer with mastectomy, DVT of bilateral lower extremities, sepsis in 2008, peripheral artery disease with angioplasty on the right, ischemic right third toe amputation, stenting of the right SFA 10/2016, left below the knee amputation in June 2015 who presented to [facility] after experiencing increasing pain in her right lower extremity. She had been taking Tylenol for the pain. Family noticed some red spots on the lower anterior leg and discoloration of the right great toe. She was also complaining of nosebleed from the left nostril throughout the day. She stated she had had a Cold with rhinorrhea. She was evaluated in the emergency room and pulse deficit was noted on the right leg. Patient's right great toe and right second toe were noted to be swollen and discolored.They also noted that she was to see Dr. Padilla today regarding her right lower extremity . She was seen in the office of [facility] on 07/[facility]2019 and had a CTA of bilateral extremities on 07/11/2019 that showed atherosclerosis of the right superficial femoral anterior and distal arteries as well as the popliteal artery. Also to note: she was hospitalized in [facility] in April and was told there was nothing else that they could do for the vascular changes in the right lower extremity. It was suggested that she have the leg removed. She refused at that time. Patient felt somewhat better after admission. that her respiratory symptoms have improved. She says the pain in her leg is slightly better this a.m. She h as had no further nosebleeds. Patient has been seen by cardiology with plans for Right lower extremity angiogram with consideration for angioplasty. Will need to continue with her aspirin, Plavix and Coumadin. INR today is noted to be 2.27. Hospital Course Hospital Course: Patient felt somewhat better after admission. Her respiratory symptoms improve d. The pain in her leg was slightly better the following a.m. She had no further nosebleeds. Patient has been seen by cardiology with plans for Right lower extremity angiogram with consideration for angioplasty. Aspirin, Plavix and Coumadin were continued. INR today was 2.27. On patient had angiogram of the right lower extremity with successful revascularization and jain of antegrade flow to the right superficial femoral artery and right popliteal artery and right AT trunk The following day patient had decreased pain in the right leg since the stenting and the foot felt warmer. She had some swelling noted. The first 2 toes of the right foot still had some purple discoloration. She was followed by cardiology who felt that she was stable to be discharged home with her home meds of Aggrenox, Plavix, and warfarin with follow-up with them in 1 to 2 weeks. Blood sugars were elevated and she was started back an increased dosage of Levemir along with the sliding scale. Renal function did slightly improve during hospitalization. On 07/24/2019 patient was stable for discharge. She was to continue with meds as per cardiology as well as her other home meds as per reconciliation sheet. She was to follow-up with cardiology in [address] Alva in 2 weeks Objective Vital signs: Temp Pulse Resp BP Pulse Ox 98.7 F 84 18 134/65 95 07/24/19 16:00 07/24/19 16:00 07/24/19 16:00 07/24/19 16:00 07/24/19 16:00 Narrative: Exam Vital signs and Labs for Last 24 Hours: Temp Pulse Resp BP Pulse Ox 98.7 F 89 17 130/80 98 07/24/19 04:00 07/24/19 04:00 07/24/19 04:00 07/24/19 04:00 07/24/19 04:00 Laboratory Results - last 24 hr 07/23/19 11:05: Activated Clotting Time > 400 H* 07/23/19 12:12: POC Glucose 243 H 07/23/19 17:08: POC Glucose 227 H 07/23/19 18:51: Urine Color Yellow, Urine Appearance Clear, Urine pH 5.5, Ur Specific [place] 1.020, Urine Protein Negative, Urine Glucose (UA) 3+, Urine Ketones Negative, Urine Blood Trace-l, Urine Nitrate Negative, Urine Bilirubin Negative, Urine Urobilinogen 0.2, Ur Leukocyte Esterase Negative, Urine WBC Occasional, Ur Squamous Epith Cells 3-5, Urine Bacteria Trace 07/23/19 21:09: POC Glucose 439 H* 07/24/19 05:55: POC Glucose 308 H* 07/24/19 06:40: PT 17.2 H, INR 1.70 H I & O for Last 24 hours: Intake & Output 07/21/19 07/22/19 07/23/19 07/24/19 11:59 11:59 11:59 11:59 Intake Total 173 / 173 0 / 0 Balance 173 / 173 0 / 0 Weight 166 lb 4 oz 166 lb 4.009 oz - Constitutional no acute distress Comments: Patient completed breakfast. She appears comfortable - *Routine Respiratory Exam Present: CTA bilaterally (Anteriorly and posteriorly) - *Routine Cardiovascular Exam Present: RRR - *Routine Abdominal Exam Present: normoactive bowel sounds, obese. Absent: tenderness - *Routine Extremities Exam Present: edema Comments: Right foot great toe and second toe with dark erythema. Tender to palpation. Continues with edema of the foot. Unable to feel pedal pulses although nursing documents 1+ pulses. - *Routine Neurological Exam Present: alert, oriented X3 Results Completed studies during hospitalization [Text1]: 07/22/19 X-ray of right foot IMPRESSION: Soft tissue swelling. Prior amputation 3rd and 4th toes. No acute bony findings 07/23/19 angioplasty with stenting ANGIOGRAPHIC RESULTS The right superficial femoral artery is proximally occluded and occluded throughout its entire course. The right popliteal artery is occluded The right AT trunk is subtotally occluded IMPRESSION Acute on chronic occlusion of the right superficial femoral artery right popliteal artery and right AT trunk. Successful revascularization and jain of antegrade flow to the above arteries reducing the subtotal occlusions to 0% with bare-metal stents and balloon angioplasty Labs on day of discharge: Preliminary micro results at discharge 07/22/19 22:39 Blood Culture - Preliminary Blood NO GROWTH AFTER 48 HOURS 07/22/19 22:39 Blood Culture - Preliminary Blood NO GROWTH AFTER 48 HOURS DS: Diagnosis - Discharge Diagnosis (1) Peripheral arterial occlusive disease Status: Chronic (2) Discoloration of skin of foot Status: Acute (3) History of CVA (cerebrovascular accident) Status: Chronic (4) Hyperlipidemia Status: Chronic (5) Hypertensive heart disease without heart failure Status: Chronic (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 (7) Type 2 diabetes mellitus with diabetic neuropathy, with long-term current use of insulin Status: Chronic (8) Anemia Status: Chronic (9) History of left below knee amputation Status: Chronic (10) Obesity (BMI 30.0-34.9) Status: Chronic Discharge Plan - Patient Discharge Instructions ACTIVITY: Continue current activity DIET: continue same diet Patient Instructions: Peripheral Artery Disease - Follow up Plan Follow up with: Shawn Alva MD [Primary Care Provider] - 2 weeks Jose Padilla MD [Staff Physician] - 1 week Disposition: Home, Self-Snf Medications: Home Medications Medication Instructions Recorded Confirmed Type amiloride 5 mg tablet 10 mg PO DAILY 09/22/17 07/25/19 History aspirin 25 mg-dipyridamole 200 mg 1 cap PO BID 09/22/17 07/25/19 History capsule,ext.release 12 hr multiphase baclofen 10 mg tablet 10 mg PO DAILY 09/22/17 07/25/19 History clopidogrel 75 mg tablet 75 mg PO DAILY 09/22/17 07/25/19 History glimepiride 2 mg tablet 2 mg PO DAILY 09/22/17 07/25/19 History metolazone 5 mg tablet 5 mg PO DAILY 09/22/17 07/25/19 History Baclofen [Lioresal 10mg tablet] 20 mg PO HS 11/20/17 07/25/19 History Citalopram Hydrobromide [Celexa 20 mg PO DAILY 11/20/17 07/25/19 History 20mg Tablet] Donepezil HCl [Aricept 5mg 5 mg PO HS 04/14/18 07/25/19 History Tablet] Potassium Chloride 60 meq PO TID 04/14/18 07/25/19 History Spironolactone [Aldactone 25mg 25 mg PO DAILY 04/14/18 07/25/19 History Tab] Furosemide [Furosemide 40MG tAB] 40 mg PO DAILY 04/15/18 07/25/19 History warfarin 5 mg tablet 5 mg PO SUTUWEFRSA tab 08/17/18 07/25/19 History Linagliptin/Metformin HCl 1 each PO BID 05/09/19 07/25/19 History [Jentadueto 2.5 mg-1000 mg Tab] Metoprolol Tartrate [Lopressor 12.5 mg PO DAILY 05/09/19 07/25/19 History 25mg tablet] Insulin Detemir [Levemir 40 unit SQ DAILY #0 05/10/19 07/25/19 Rx 100units/mL 3mL flexpen] Loratadine [Claritin] 10 mg PO DAILY 05/10/19 07/25/19 History Rosuvastatin Calcium [Crestor 20 20 mg PO HS 05/10/19 07/25/19 History mg Tablets] Warfarin Sodium 7.5 mg PO DIRECTED 05/10/19 07/25/19 History Cholecalciferol (Vitamin D3) 4,000 units PO DAILY 07/23/19 07/25/19 History [Vitamin D3] Insulin Lispro [HumaLOG 100 0 unit SQ DIRECTED 07/23/19 07/25/19 History units/mL 3mL vial (SSI)] Prescriptions/Medication Reconciliation: Continued baclofen 10 mg tablet 10 mg PO DAILY amiloride 5 mg tablet 10 mg PO DAILY aspirin 25 mg-dipyridamole 200 mg capsule,ext.release 12 hr multiphase 1 cap PO BID clopidogrel 75 mg tablet 75 mg PO DAILY warfarin 5 mg tablet 5 mg PO SUTUWEFRSA tab metolazone 5 mg tablet 5 mg PO DAILY glimepiride 2 mg tablet 2 mg PO DAILY Citalopram Hydrobromide [Celexa 20mg Tablet] 20 mg PO DAILY Spironolactone [Aldactone 25mg Tab] 25 mg PO DAILY Potassium Chloride 60 meq PO TID Donepezil HCl [Aricept 5mg Tablet] 5 mg PO HS Metoprolol Tartrate [Lopressor 25mg tablet] 12.5 mg PO DAILY Loratadine [Claritin] 10 mg PO DAILY Warfarin Sodium 7.5 mg PO DIRECTED Insulin Detemir [Levemir 100units/mL 3mL flexpen] 40 unit SQ DAILY #0 Insulin Lispro [HumaLOG 100 units/mL 3mL vial (SSI)] 0 unit SQ DIRECTED Baclofen [Lioresal 10mg tablet] 20 mg PO HS Furosemide [Furosemide 40MG tAB] 40 mg PO DAILY Linagliptin/Metformin HCl [Jentadueto 2.5 mg-1000 mg Tab] 1 each PO BID Rosuvastatin Calcium [Crestor 20 mg Tablets] 20 mg PO HS Cholecalciferol (Vitamin D3) [Vitamin D3] 4,000 units PO DAILY - Problem Reconciliation Problems Reviewed?: Yes
== END 2019-07-24 18:00 | disposition home or self-care (01) ==
LOC: ER 22:06 → 2ND 23:29 → INTOOBSV 23:54
PROVIDERS: ADMIT Family Medicine; ATTEND Family Medicine
CPT/HCPCS: 36415; 37226; 37230; 73630; 80048; 80053; 81001; 82962; 83605; 85025; 85347; 85610; 85651; 85730; 86140; 87040; 93005; 94761; 99152; 99153; 99284; C1725; C1760; C1766; C1769; C1876; G0378; J1644; Q9966; Q9967

== ENCOUNTER 2019-07-25 16:37 | Inpatient (IN) ==
[2019-07-25 17:09] LABS: Microscopic, Urine URINE MICROSCOPIC (MICROSCOPIC)
[2019-07-25 17:17] LABS: Appearance,Urine CLEAR (Clear); Bilirubin,Urine Negative (Negative); Blood, Urine TRACE-I (Negative); Color,Urine YELLOW (Yellow); Glucose,Urine (UA) Negative (Negative); Ketones,Urine Negative (Negative); Leukocyte Esterase,Urine 1+ (Negative); PH,Urine 5.5 (5.0-8.5); Protein,Urine Negative (Negative); Specific Gravity, Urine 1.015 (1.005-1.030); Urobilinogen,Urine 0.2 EU/dl (0.2)
[2019-07-25 17:21] LABS: Basophils % 0.2 % (0.1-2.0); Eosinophils % 0.2 % (0.1-12.0); Hematocrit 29.6 % (37.0-47.0); Hemoglobin 9.4 g/dL (12.2-16.2); Lymphocytes # 2.3 K/mm3 (0.7-4.5); Lymphocytes % 18.8 % (10-50); Mean Corpuscular HGB Conc 31.7 g/dL (31.8-35.4); Mean Corpuscular Volume 83.2 fl (81-99); Mean Platelet Volume 8.3 fl (7.4-10.4); Monocytes # 0.9 K/mm3 (0.1-1.0); Monocytes % 7.3 % (1.7-9.3); Neutrophils # 8.9 K/mm3 (1.8-7.8); Neutrophils % 73.6 % (37.0-80.0); Platelet Count 372 K/mm3 (142-424); Red Blood Count 3.55 M/mm3 (4.20-5.40); Red Cell Distribution Width 16.4 % (11.5-17.5); White Blood Count 12.1 K/mm3 (4.8-10.8)
[2019-07-25 17:28] LABS: INR 2.21 (0.9-1.1); Prothrombin Time 22.1 seconds (9.4-11.8)
[2019-07-25 17:36] LABS: Activated Partial Thrombo Time 58.7 seconds (23.6-34.0)
[2019-07-25 17:38] LABS: Bacteria,Urine Trace /lpf; Squamous Epithelial Cell,Urine Occasional #/hpf (0-5)
[2019-07-25 18:02] LABS: Alanine Aminotransferase 27 U/L (12-78); Albumin Level 2.7 gm/dL (3.4-5.0); Albumin/Globulin Ratio 0.5 (1.1-1.8); Alkaline Phosphatase 68 U/L (46-116); Anion Gap 15.4 mEq/L (5-15); Aspartate Amino Transferase 36 U/L (15-37); Bilirubin,Total 0.4 mg/dL (0.2-1.0); Blood Urea Nitrogen 26 mg/dL (7-18); Carbon Dioxide 26 mmol/L (21.0-32.0); Chloride 94 mmol/L (98-107); Globulin 5.4 gm/dl (1.3-3.2); Glucose 246 mg/dL (74-106); Sodium 131 mmol/L (136-145); Total Protein,Serum 8.1 gm/dL (6.4-8.2)
--- NOTE | 2019-07-25 18:12 | Emergency Department Note ---
ED Disposition Clinical Impression: Arteritis Disposition: Admitted As Inpatient Condition on Discharge: Good Referrals: Shawn Alva MD [Primary Care Provider] - - Critical Care Critical Care Time: No Attestation: On 07/25/19, the high probability of a clinically significant, sudden or life threatening deterioration of the following system(s) required my full and direct attention, intervention and personal management. The time I documented below is in addition to time spent performing reported procedures but includes the following listed in this critical care notation. Medical Decision Making - Carlo Inquiry Pt receiving controlled substance: No Vital Signs: 07/25/19 16:48 Temperature 100.2 F H Temperature Source Oral Pulse Rate [Right Radial] 84 Respiratory Rate 20 Blood Pressure [Right Arm] 125/91 H Blood Pressure Mean [Right Arm] 102 02 Sat by Pulse Oximetry 95 Oxygen Delivery Method Room Air - Lab Data Lab Results 07/25/19 17:00: Urine Color Yellow, Urine Appearance Clear, Urine pH 5.5, Ur Specific [place] 1.015, Urine Protein Negative, Urine Glucose (UA) Negative, Urine Ketones Negative, Urine Blood Trace-i, Urine Nitrate Negative, Urine Bilirubin Negative, Urine Urobilinogen 0.2, Ur Leukocyte Esterase 1+ A, Urine WBC 3-5, Ur Squamous Epith Cells Occasional, Urine Bacteria Trace 07/25/19 17:00: WBC 12.1 H D, RBC 3.55 L, Hgb 9.4 L, Hct 29.6 L, MCV 83.2, MCH 26.4 L, MCHC 31.7 L, RDW 16.4, Plt Count 372, MPV 8.3, Neut % (Auto) 73.6, Lymph % (Auto) 18.8, [place] % (Auto) 7.3, Eos % (Auto) 0.2, Baso % (Auto) 0.2, Neut # (Auto) 8.9 H, Lymph # (Auto) 2.3, [place] # (Auto) 0.9, Eos # (Auto) 0.0, Baso # (Auto) 0.0 07/25/19 17:00: Sodium 131 L, Potassium 4.4 D, Chloride 94 L, Carbon Dioxide 26, Anion Gap 15.4 H, BUN 26 H, Creatinine 1.51 H, Estimated Creat Clear 54, Estimated GFR 36 L, Est GFR ( Amer) 44 L, Glucose 246 H, Calcium 9.0, Total Bilirubin 0.4, AST 36, ALT 27, Alkaline Phosphatase 68, Troponin I < 0.02, Total Protein 8.1, Albumin 2.7 L, Globulin 5.4 H, Albumin/Globulin Ratio 0.5 L 07/25/19 17:00: Lactate 2.4 H 07/25/19 17:00: Influenza Type A Ag Negative, Influenza Type B Ag Negative 07/25/19 17:00: PT 22.1 H, INR 2.21 H, APTT 58.7 H* D Result diagrams: 07/25/19 17:00 07/25/19 17:00 Orders (Tests/Meds): ED MEDICATIONS Generic Name Dose Route Start Last Admin Trade Name Freq PRN Reason Stop Dose Admin Sodium Chloride 1,000 mls @ 999 mls/hr 07/25/19 17:00 07/25/19 17:06 Sod Chlor 0.9% 1000ml Bag IV 07/25/19 18:00 999 mls/hr .Q1H1M JOSEPH Administration Discontinued Medications Generic Name Dose Route Start Last Admin Trade Name Freq PRN Reason Stop Dose Admin Hydrocodone Bitart/Acetaminophen 1 tab 07/25/19 18:40 Marceline 5/325mg Tablet PO 07/25/19 18:41 ONCE ONE ORDERS Category Date Time Status XR chest portable Stat Exams 07/25/19 16:53 Taken Basic Metabolic Panel AMLAB Lab 07/26/19 06:00 Ordered Complete Blood Count Auto Diff AMLAB Lab 07/26/19 06:00 Ordered Troponin I Q3H Lab 07/25/19 20:00 Ordered Troponin I Q3H Lab 07/25/19 23:00 Ordered Blood Culture Stat Micro 07/25/19 17:06 Received Urine Culture Stat Micro 07/25/19 17:00 Received Medical Decision Narrative: Patient presented to the emergency department for right leg pain status post vascular stent placement by Dr. Padilla yesterday. All compartments are soft, no suspicion of hemorrhage, appears to be well perfused in the foot, however I did not have a Doppler to perfectly check. Her great toe and first toe are very cold and almost black in appearance, however the family says that this is chronic. She has erythematous streak to the medial aspect of the calf and the medial aspect of the thigh that are extremely tender to touch. I spoke with Dr. Padilla and he feels that this is likely where he placed the stents in his pain due to stretching of the artery. I did a bedside ultrasound to look for deep venous thrombosis and it was negative. Currently waiting on Dr. Padilla to call back with final recommendations. Lab work was unremarkable. Mary Ann will call back with a final recommendation is recommended that we give the patient Marceline and go home. He says that her arteritis is likely just due to his procedure that he performed on the patient. Patient was given Marceline for pain. However on discussion with the patient and her mom she is [place] unable to ambulate with the patient she cannot get her up and from any of the activities of daily living. The patient had significant difficulty even making here to the emergency department. There is no way the patient can go home at this time. She was given her Marceline for pain, and was admitted to the hospital by Dr. Lerner for pain control and rehab in the morning. General Adult HPI - General Chief complaint: Weakness Stated complaint: pain in leg Time Seen by Provider: 07/25/19 17:50 Mode of Arrival: Wheelchair Limitations: No Limitations Description of Symptoms (Recalled from ER Triage Doc. by RN): pt reports to ed with c/o generalized weakness and fever. pt had a procedure recently here by poppy to open up a vein in her right leg. - History of Present Illness HPI narrative: Patient presents to the emerge department complaining of right leg pain. She was stented in that leg by Dr. Padilla yesterday. The pain is gotten significantly worse and she is concerned something is wrong. She has 2 gangrenous toes on that foot and Dr. Padilla had told her he was thinking that these may begin reperfusing after the stents. She has not tried anything for the pain. She is unable to stand on that leg like she was before due to the severe pain. - Related Data Home Medications Medication Instructions Recorded Confirmed amiloride 5 mg tablet 10 mg PO DAILY 09/22/17 07/22/19 aspirin 25 mg-dipyridamole 200 mg 1 cap PO BID 09/22/17 07/22/19 capsule,ext.release 12 hr multiphase baclofen 10 mg tablet 10 mg PO DAILY 09/22/17 07/22/19 clopidogrel 75 mg tablet 75 mg PO DAILY 09/22/17 07/23/19 glimepiride 2 mg tablet 2 mg PO DAILY 09/22/17 07/23/19 metolazone 5 mg tablet 5 mg PO DAILY 09/22/17 07/23/19 Baclofen [Lioresal 10mg tablet] 20 mg PO HS 11/20/17 07/23/19 Citalopram Hydrobromide [Celexa 20 mg PO DAILY 11/20/17 07/22/19 20mg Tablet] Donepezil HCl [Aricept 5mg 5 mg PO HS 04/14/18 07/22/19 Tablet] Potassium Chloride 60 meq PO TID 04/14/18 07/22/19 Spironolactone [Aldactone 25mg 25 mg PO DAILY 04/14/18 07/22/19 Tab] Furosemide [Furosemide 40MG tAB] 40 mg PO DAILY 04/15/18 07/22/19 warfarin 5 mg tablet 5 mg PO SUTUWEFRSA tab 08/17/18 07/23/19 Linagliptin/Metformin HCl 1 each PO BID 05/09/19 07/22/19 [Jentadueto 2.5 mg-1000 mg Tab] Metoprolol Tartrate [Lopressor 12.5 mg PO DAILY 05/09/19 07/23/19 25mg tablet] Loratadine [Claritin] 10 mg PO DAILY 05/10/19 07/22/19 Rosuvastatin Calcium [Crestor 20 20 mg PO HS 05/10/19 07/22/19 mg Tablets] Warfarin Sodium 7.5 mg PO MOTH 05/10/19 07/23/19 Cholecalciferol (Vitamin D3) 4,000 units PO DAILY 07/23/19 07/23/19 [Vitamin D3] Insulin Lispro [HumaLOG 100 0 unit SQ DIRECTED 07/23/19 07/23/19 units/mL 3mL vial (SSI)] Previous Rx's Medication Instructions Recorded Insulin Detemir [Levemir 40 unit SQ DAILY #0 05/10/19 100units/mL 3mL flexpen] Allergies Allergy/AdvReac Type Severity Reaction Status Date / Time azithromycin Allergy Intermediate S-DIFF. Verified 07/25/19 16:52 BREATHING daptomycin [DAPTOMYCIN] Allergy Intermediate I-RASH/ITCH Verified 07/25/19 16:52 ING levofloxacin Allergy Intermediate I-RASH Verified 07/25/19 16:52 Penicillins Allergy Intermediate I-HIVES Verified 07/25/19 16:52 [facility] History - Hepatitis A Screen Drug use history?: No High risk sexual behaviors?: No History of sexually transmitted infection?: No Currently employed?: No Childcare worker?: No Do you have indoor plumbing?: Yes Do you have electricity?: Yes Attestation statement:: This patient has been screened for Hepatitis A risk factors. Medical History: Reports:: Atherosclerotic Heart Disease, Cancer, Coronary Artery Disease, Cerebrovascular Accident, Deep Vein Thrombosis, Depression, Diabetes Mellitus Type 1, Diabetes Mellitus Type 2, Gall Bladder Disease, Heart Murmur, Hyperlipidemia, Hypertension, MRSA, Myocardial Infarction, Peripheral Artery Disease, Peripheral Vascular Disease, Renal Disease, Renal Insufficiency, Transient Ischemic Attacks (TIA), Urinary Tract Infection Denies:: Asthma, Chronic Obstructive Pulmonary Disease (COPD), Internal Pacemaker, Lung Disease, Seizures Other Medical History: Reports: Arthritis, Chemotherapy, Sinus Problems, Other. Denies: Blood Transfusion Reaction Laterality Cases: Left: Lumpectomy, Right: Mastectomy, Other, Bilateral: Carpal Tunnel Release Other Surgeries: Yes: Cancer Surgery, Cardiac Catheterization, Cardiac Surgery, Cholecystectomy, Colonoscopy, Coronary Stent, , Open Heart Surgery, Tubal Ligation, Other (amputee left leg and right toes). No: Pacemaker Amputation: Yes (Left BKA 06/23/14; 4th toe right foot 2016) Fractures: No Comment: Right third toe amputation 2017 - Social History Smoking Status: Never smoker # Packs/Day (cigarettes): 0 #Yrs smoked (if former smoker): 0 Alcohol Intake: never Alcohol Intake Frequency:: other Substance Use Type: denies use Occupational Status: disabled Housing: house Household Members: family - Psychiatric History Pschychiatric History:: Reports:: Depression Family Hx:: Heart Attack Comment: 1 son was stillborn ROS Obtained: Yes All systems reviewed & no additional complaints Physical Exam - General General appearance: alert - Respiratory Respiratory exam: Present: normal lung sounds bilaterally - Cardiovascular Cardiovascular exam: Present: regular rate - Expanded Lower Extremity Exam Right Comment: Right lower leg normal in overall appearance, compartments soft, small erythematous area to medial thigh that is extremely tender to touch, small erythematous area to the lateral martinez that is not tender to touch, family says is chronic, erythematous line to right medial calf that is extremely tender to touch, warm and erythematous foot up until just proximal to the toes where they become cold, right great toe and first toe are black, cold, dry gangrenous in appearance. - Neurological Exam Neurological exam: Present: alert, oriented X3
[2019-07-26 07:02] LABS: Basophils % 0.2 % (0.1-2.0); Eosinophils # 0.1 K/mm3 (0.0-0.4); Eosinophils % 1.3 % (0.1-12.0); Hematocrit 29.5 % (37.0-47.0); Hemoglobin 9.1 g/dL (12.2-16.2); Lymphocytes # 2.4 K/mm3 (0.7-4.5); Lymphocytes % 25.1 % (10-50); Mean Corpuscular HGB Conc 30.8 g/dL (31.8-35.4); Mean Corpuscular Volume 84.9 fl (81-99); Mean Platelet Volume 7.9 fl (7.4-10.4); Monocytes # 0.7 K/mm3 (0.1-1.0); Monocytes % 7.4 % (1.7-9.3); Neutrophils # 6.4 K/mm3 (1.8-7.8); Platelet Count 360 K/mm3 (142-424); Red Blood Count 3.47 M/mm3 (4.20-5.40); Red Cell Distribution Width 16.5 % (11.5-17.5); White Blood Count 9.6 K/mm3 (4.8-10.8)
[2019-07-26 07:35] LABS: Anion Gap 12.1 mEq/L (5-15); Calcium 8.8 mg/dL (8.5-10.1)
--- NOTE | 2019-07-26 08:20 | History & Physical Report ---
*Admission Date: 07/26/19 <Irina Gil 07/26/19 08:21> *Chief complaint: right leg pain <Irina Gil 07/26/19 08:21> *History of present illness: Ms. Nieto is a 53-year-old female with a history of peripheral arterial disease. She was just recently discharged on Tuesday fter an admission and vascular stent placement by Dr. Padilla in the right leg. She seemed to be doing well until yesterday when she began having red streaks into her calf and thigh as well as significant pain. Her mother states she was unable to bear any weight on the leg and therefore she was brought to the emergency room for evaluation and treatment. The ER physician spoke with Dr. Padilla and he felt the pain was likely due to where he placed stents and stretched the artery. A bedside ultrasound was done to look for DVT and it was negative. Dr. Padilla recommended giving the patient [place] and sending her home, however the patient's mother stated she was unable to take her home until she could ambulate. She was therefore admitted for pain control and a rehab evaluation. <Irina Gil 07/26/19 08:21> [facility] History I have reviewed the patient's past medical history: Yes <Irina Gil 07/26 08:21> Medical History: Reports:: Atherosclerotic Heart Disease, Cancer, Coronary Artery Disease, Cerebrovascular Accident, Deep Vein Thrombosis, Depression, Diabetes Mellitus Type 1, Diabetes Mellitus Type 2, Gall Bladder Disease, Heart Murmur, Hyperlipidemia, Hypertension, MRSA, Myocardial Infarction, Peripheral Artery Disease, Peripheral Vascular Disease, Renal Disease, Renal Insufficiency, Transient Ischemic Attacks (TIA), Urinary Tract Infection Denies:: Asthma, Chronic Obstructive Pulmonary Disease (COPD), Internal Pacemaker, Lung Disease, Seizures <Irina Gil 07/26/19 08:21> *Have you ever received a pneumonia vaccine?: Yes <Irina Gil 07/26/19 08:21> *Have you received a flu vaccine this season?: Yes <Irina Gil 07/26/19 08:21> Other Medical History: Reports: Arthritis, Chemotherapy, Sinus Problems, Other. Denies: Blood Transfusion Reaction <Irina Gil 07/26/19 08:21> Laterality Cases: Left: Lumpectomy, Right: Mastectomy, Other, Bilateral: Carpal Tunnel Release <Irina Gil 07/26/19 08:21> Other Surgeries: Yes: Cancer Surgery, Cardiac Catheterization, Cardiac Surgery, Cholecystectomy, Colonoscopy, Coronary Stent, , Open Heart Surgery, Tubal Ligation, Other (amputee left leg and right toes, stent to right leg). No: Pacemaker <Irina Gil 07/26/19 08:21> Amputation: Yes (Left BKA 06/23/14; 4th toe right foot 2016) <Irina Gil 07/26/19 08:21> Fractures: No <Irina Gil 07/26/19 08:21> - *Social History Smoking Status: Never smoker <Irina Gil 07/26/19 08:21> # Packs/Day (cigarettes): 0 <Irina Gil 07/26/19 08:21> #Yrs smoked (if former smoker): 0 <Irina Gil 07/26/19 08:21> Alcohol Intake: never <Irina Gil 07/26/19 08:21> Alcohol Intake Frequency:: other <Irina Gil 07/26/19 08:21> Substance Use Type: denies use <Irina Gil 07/26/19 08:21> *Occupational Status:: disabled <Irina Gil 07/26/19 08:21> Housing: house <Irina Gil 07/26/19 08:21> Household Members: family <Irina Gil 07/26/19 08:21> *Travel in the last 8 weeks: None <Irina Gil 07/26/19 08:21> - Psychiatric History Pschychiatric History:: Reports:: Depression <Irina Gil 07/26/19 08:21> Family Hx:: Heart Attack <Irina Gil 07/26/19 08:21> Review of Systems - Constitutional Reports chills, Reports fever(s), Reports weakness <Irina Gil 07/26/19 08:21> - Eyes Denies blurry vision, Denies double vision <Irina Gil 07/26/19 08:21> - ENT Denies nasal congestion, Denies sore throat <Irina Gil 07/26/19 08:21> - *Cardiovascular Denies chest pain, Denies shortness of breath <Irina Gil 07/26/19 08:21> - *Respiratory Denies cough, Denies shortness of breath <Irina Gil 07/26/19 08:21> - *Gastrointestinal Denies abdominal pain, Denies loose stools, Denies nausea, Denies vomiting <Irina Gil 07/26/19 08:21> - *Genitourinary Denies difficulty urinating, Denies painful urination <Irina Gil 12/07 08:21> - *Musculoskeletal Reports joint pain (right leg) <Irina Gil 07/26/19 08:21> - *Neurologic Reports weakness, Denies headache(s), Denies dizziness <Irina Gil 07/26/19 08:21> Meds Home Medications Medication Instructions Recorded Confirmed Type amiloride 5 mg tablet 10 mg PO DAILY 09/22/17 07/25/19 History aspirin 25 mg-dipyridamole 200 mg 1 cap PO BID 09/22/17 07/25/19 History capsule,ext.release 12 hr multiphase baclofen 10 mg tablet 10 mg PO DAILY 09/22/17 07/25/19 History clopidogrel 75 mg tablet 75 mg PO DAILY 09/22/17 07/25/19 History glimepiride 2 mg tablet 2 mg PO DAILY 09/22/17 07/25/19 History metolazone 5 mg tablet 5 mg PO DAILY 09/22/17 07/25/19 History Baclofen [Lioresal 10mg tablet] 20 mg PO HS 11/20/17 07/25/19 History Citalopram Hydrobromide [Celexa 20 mg PO DAILY 11/20/17 07/25/19 History 20mg Tablet] Donepezil HCl [Aricept 5mg 5 mg PO HS 04/14/18 07/25/19 History Tablet] Potassium Chloride 60 meq PO TID 04/14/18 07/25/19 History Spironolactone [Aldactone 25mg 25 mg PO DAILY 04/14/18 07/25/19 History Tab] Furosemide [Furosemide 40MG tAB] 40 mg PO DAILY 04/15/18 07/25/19 History warfarin 5 mg tablet 5 mg PO SUTUWEFRSA tab 08/17/18 07/25/19 History Linagliptin/Metformin HCl 1 each PO BID 05/09/19 07/25/19 History [Jentadueto 2.5 mg-1000 mg Tab] Metoprolol Tartrate [Lopressor 12.5 mg PO DAILY 05/09/19 07/25/19 History 25mg tablet] Insulin Detemir [Levemir 40 unit SQ DAILY #0 05/10/19 07/25/19 Rx 100units/mL 3mL flexpen] Loratadine [Claritin] 10 mg PO DAILY 05/10/19 07/25/19 History Rosuvastatin Calcium [Crestor 20 20 mg PO HS 05/10/19 07/25/19 History mg Tablets] Warfarin Sodium 7.5 mg PO MOTH 05/10/19 07/26/19 History Cholecalciferol (Vitamin D3) 4,000 units PO DAILY 07/23/19 07/25/19 History [Vitamin D3] Insulin Lispro [HumaLOG 100 0 unit SQ DIRECTED 07/23/19 07/25/19 History units/mL 3mL vial (SSI)] <Shawn Alva - 07/26/19 13:27> Allergies Allergy/AdvReac Type Severity Reaction Status Date / Time azithromycin Allergy Intermediate S-DIFF. Verified 07/25/19 16:52 BREATHING daptomycin [DAPTOMYCIN] Allergy Intermediate I-RASH/ITCH Verified 07/25/19 16:52 ING levofloxacin Allergy Intermediate I-RASH Verified 07/25/19 16:52 Penicillins Allergy Intermediate I-HIVES Verified 07/25/19 16:52 <Shawn Alva - 07/26/19 13:27> Exam Vital signs and Labs for Last 24 Hours: Temp Pulse Resp BP Pulse Ox 99.6 F 88 16 121/97 H 97 07/26/19 12:00 07/26/19 12:00 07/26/19 12:00 07/26/19 12:00 07/26/19 12:00 Laboratory Results - last 24 hr 07/25/19 17:00: Urine Color Yellow, Urine Appearance Clear, Urine pH 5.5, Ur Specific Graham 1.015, Urine Protein Negative, Urine Glucose (UA) Negative, Urine Ketones Negative, Urine Blood Trace-i, Urine Nitrate Negative, Urine Bilirubin Negative, Urine Urobilinogen 0.2, Ur Leukocyte Esterase 1+ A, Urine WBC 3-5, Ur Squamous Epith Cells Occasional, Urine Bacteria Trace 07/25/19 17:00: WBC 12.1 H D, RBC 3.55 L, Hgb 9.4 L, Hct 29.6 L, MCV 83.2, MCH 26.4 L, MCHC 31.7 L, RDW 16.4, Plt Count 372, MPV 8.3, Neut % (Auto) 73.6, Lymph % (Auto) 18.8, Day % (Auto) 7.3, Eos % (Auto) 0.2, Baso % (Auto) 0.2, Neut # (Auto) 8.9 H, Lymph # (Auto) 2.3, Day # (Auto) 0.9, Eos # (Auto) 0.0, Baso # (Auto) 0.0 07/25/19 17:00: Sodium 131 L, Potassium 4.4 D, Chloride 94 L, Carbon Dioxide 26, Anion Gap 15.4 H, BUN 26 H, Creatinine 1.51 H, Estimated Creat Clear 54, Estimated GFR 36 L, Est GFR ( Amer) 44 L, Glucose 246 H, Calcium 9.0, Total Bilirubin 0.4, AST 36, ALT 27, Alkaline Phosphatase 68, Troponin I < 0.02, Total Protein 8.1, Albumin 2.7 L, Globulin 5.4 H, Albumin/Globulin Ratio 0.5 L 07/25/19 17:00: Lactate 2.4 H 07/25/19 17:00: Influenza Type A Ag Negative, Influenza Type B Ag Negative 07/25/19 17:00: PT 22.1 H, INR 2.21 H, APTT 58.7 H* D 07/25/19 20:10: Troponin I < 0.02 07/25/19 21:40: Lactate 0.9 07/25/19 23:00: Troponin I < 0.02 07/26/19 00:52: POC Glucose 260 H 07/26/19 05:49: POC Glucose 219 H 07/26/19 06:40: WBC 9.6, RBC 3.47 L, Hgb 9.1 L, Hct 29.5 L, MCV 84.9, MCH 26.2 L , MCHC 30.8 L, RDW 16.5, Plt Count 360, MPV 7.9, Neut % (Auto) 66.0, Lymph % (Auto) 25.1, Day % (Auto) 7.4, Eos % (Auto) 1.3, Baso % (Auto) 0.2, Neut # (Auto) 6.4, Lymph # (Auto) 2.4, Day # (Auto) 0.7, Eos # (Auto) 0.1, Baso # (Auto) 0.0 07/26/19 06:40: Sodium 133 L, Potassium 4.1, Chloride 97 L, Carbon Dioxide 28, Anion Gap 12.1, BUN 20 H, Creatinine 1.21 H, Estimated Creat Clear 67, Estimated GFR 47 L, Est GFR ( Amer) 57 L D, Glucose 198 H, Calcium 8.8 <Revere,Shawn - 07/26/19 13:27> Temp Pulse Resp BP Pulse Ox 97.8 F 81 16 104/53 L 95 07/26/19 04:25 07/26/19 04:25 07/26/19 04:25 07/26/19 04:25 07/26/19 04:25 Laboratory Results - last 24 hr 07/25/19 17:00: Urine Color Yellow, Urine Appearance Clear, Urine pH 5.5, Ur Specific [place] 1.015, Urine Protein Negative, Urine Glucose (UA) Negative, Urine Ketones Negative, Urine Blood Trace-i, Urine Nitrate Negative, Urine Bilirubin Negative, Urine Urobilinogen 0.2, Ur Leukocyte Esterase 1+ A, Urine WBC 3-5, Ur Squamous Epith Cells Occasional, Urine Bacteria Trace 07/25/19 17:00: WBC 12.1 H D, RBC 3.55 L, Hgb 9.4 L, Hct 29.6 L, MCV 83.2, MCH 26.4 L, MCHC 31.7 L, RDW 16.4, Plt Count 372, MPV 8.3, Neut % (Auto) 73.6, Lymph % (Auto) 18.8, Day % (Auto) 7.3, Eos % (Auto) 0.2, Baso % (Auto) 0.2, Neut # (Auto) 8.9 H, Lymph # (Auto) 2.3, Day # (Auto) 0.9, Eos # (Auto) 0.0, Baso # (Auto) 0.0 07/25/19 17:00: Sodium 131 L, Potassium 4.4 D, Chloride 94 L, Carbon Dioxide 26, Anion Gap 15.4 H, BUN 26 H, Creatinine 1.51 H, Estimated Creat Clear 54, Estimated GFR 36 L, Est GFR ( Amer) 44 L, Glucose 246 H, Calcium 9.0, Total Bilirubin 0.4, AST 36, ALT 27, Alkaline Phosphatase 68, Troponin I < 0.02, Total Protein 8.1, Albumin 2.7 L, Globulin 5.4 H, Albumin/Globulin Ratio 0.5 L 07/25/19 17:00: Lactate 2.4 H 07/25/19 17:00: Influenza Type A Ag Negative, Influenza Type B Ag Negative 07/25/19 17:00: PT 22.1 H, INR 2.21 H, APTT 58.7 H* D 07/25/19 20:10: Troponin I < 0.02 07/25/19 21:40: Lactate 0.9 07/25/19 23:00: Troponin I < 0.02 07/26/19 00:52: POC Glucose 260 H 07/26/19 05:49: POC Glucose 219 H 07/26/19 06:40: WBC 9.6, RBC 3.47 L, Hgb 9.1 L, Hct 29.5 L, MCV 84.9, MCH 26.2 L , MCHC 30.8 L, RDW 16.5, Plt Count 360, MPV 7.9, Neut % (Auto) 66.0, Lymph % (Auto) 25.1, Day % (Auto) 7.4, Eos % (Auto) 1.3, Baso % (Auto) 0.2, Neut # (Auto) 6.4, Lymph # (Auto) 2.4, Day # (Auto) 0.7, Eos # (Auto) 0.1, Baso # (Auto) 0.0 07/26/19 06:40: Sodium 133 L, Potassium 4.1, Chloride 97 L, Carbon Dioxide 28, Anion Gap 12.1, BUN 20 H, Creatinine 1.21 H, Estimated Creat Clear 67, Estimated GFR 47 L, Est GFR ( Amer) 57 L D, Glucose 198 H, Calcium 8.8 <Irina Gil - 07/26/19 08:21> I & O for Last 24 hours: Intake & Output 07/23/19 07/24/19 07/25/19 07/26/19 23:59 23:59 23:59 23:59 Output Total 1100 / 1100 Balance -1100 / -1100 Weight 170 lb <Shawn Alva - 07/26/19 13:27> Intake & Output 07/23/19 07/24/19 07/25/19 07/26/19 11:59 11:59 11:59 11:59 Weight 170 lb <Irina Gil - 07/26/19 08:21> Microbiology Reports for the Last 24 Hours: Microbiology 07/25/19 17:00 Urine,Catheterized Urine Culture - Preliminary Gram Negative Rods <Shawn Alva - 07/26/19 13:27> Microbiology 07/25/19 17:00 Urine,Catheterized Urine Culture - Preliminary Gram Negative Rods <Irina Gil - 07/26/19 08:21> - Constitutional no acute distress <Irina Gil - 07/26/19 08:21> - *Routine HEENT Exam Head: Present: normocephalic <Irina Gil - 07/26/19 08:21> Eye: Present: EOMI, PERRL <Irina Gil - 07/26/19 08:21> ENT: Present: mucous membranes moist <Irina Gil - 07/26/19 08:21> - *Routine Neck Exam Present: supple. Absent: lymphadenopathy <Irina Gil - 07/26/19 08:21> - *Routine Respiratory Exam Present: CTA bilaterally <Irina Gil - 07/26/19 08:21> - *Routine Cardiovascular Exam Present: RRR <Irina Gil - 07/26/19 08:21> - *Routine Abdominal Exam Present: soft, normoactive bowel sounds. Absent: tenderness <Iirna Gil - 07/26/19 08:30> - *Routine Extremities Exam Absent: cyanosis, clubbing, edema <Irina Gil - 07/26/19 08:30> Comments: Left BKA, right leg with some edema <Irina Gil 07/26/19 08:30> - *Routine Skin Exam Present: warm. Absent: rash <Irina Gil 07/26/19 08:30> Comments: Right lower leg is warm to the touch. The great and second toe are bl ack in appearance. This is chronic. She has some erythematous streaking on the right martinez as well as the right calf and the right inner thigh. The right calf is very tender to palpation. <Irina Gil 07/26/19 08:30> - *Routine Neurological Exam Present: alert, oriented X3 <Irina Gil 07/26/19 08:30> H&P: Result - Impressions Chest x-ray showed nothing acute <Irina Gil 07/26/19 08:30> Assessment and Plan (1) Arteritis Current visit: Yes Status: Acute Category: Medical Code(s): I77.6 - Arteritis, unspecified (2) Arterial insufficiency of lower extremity Current visit: No Status: Acute Category: Medical Code(s): I73.9 - Peripheral vascular disease, unspecified (3) History of amputation of lesser toe of right foot Current visit: No Status: Chronic Category: Surgical Code(s): Z89.421 - Acquired absence of other right toe(s) (4) Coronary arteriosclerosis Current visit: No Status: Chronic Category: Medical Code(s): I25.10 - Atherosclerotic heart disease of [place] coronary artery without angina pectoris (5) Diabetes mellitus Current visit: No Status: Chronic Qualifiers: Diabetes mellitus type: type 2 Diabetes mellitus supervisor 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s insulin use: without supervisor 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s use Diabetes mellitus complication status: with neurologic complications Diabetes mellitus complication detail: with polyneuropathy Qualified Code(s): E11.42 - Type 2 diabetes mellitus with diabetic polyneuropathy Category: Medical Code(s): E11.9 - Type 2 diabetes mellitus without complications (6) Hemiparesis affecting left side as late effect of cerebrovascular accident Current visit: No Status: Chronic Category: Medical Code(s): I69.354 - Hemiplegia and hemiparesis following cerebral infarction affecting left non- dominant side (7) History of CVA (cerebrovascular accident) Current visit: No Status: Chronic Category: Medical Code(s): Z86.73 - Personal history of transient ischemic attack (TIA), and cerebral infarction without residual deficits (8) History of left below knee amputation Current visit: No Status: Chronic Category: Medical Code(s): Z89.512 - Acquired absence of left leg below knee (9) Hyperlipidemia Current visit: No Status: Chronic Qualifiers: Hyperlipidemia type: unspecified Qualified Code(s): E78.5 - Hyperlipidemia, unspecified Category: Medical Code(s): E78.5 - Hyperlipidemia, unspecified (10) Hypertensive heart disease without heart failure Current visit: No Status: Chronic Category: Medical Code(s): I11.9 - Hypertensive heart disease without heart failure (11) assisted 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 Current visit: No Status: Chronic Category: Medical Code(s): Z79.01 - assisted (current) use of 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 (12) Obesity (BMI 30.0-34.9) Current visit: No Status: Chronic Category: Medical Code(s): E66.9 - O besity, unspecified (13) Peripheral arterial occlusive disease Current visit: No Status: Chronic Category: Medical Code(s): I77.9 - Disorder of arteries and arterioles, unspecified (14) Type 2 diabetes mellitus with diabetic neuropathy, with long-term current use of insulin Current visit: No Status: Chronic Category: Medical Code(s): E11.40 - Type 2 diabetes mellitus with diabetic neuropathy, unspecified; Z79.4 - assisted (current) use of insulin (15) Urine culture positive Current visit: Yes Status: Acute Category: Medical Code(s): R82.79 - Other abnormal findings on microbiological examination of urine <Shawn Alva - 07/26/19 13:27> (1) Arteritis Current visit: Yes Status: Acute Category: Medical Code(s): I77.6 - Arteritis, unspecified (2) Arterial insufficiency of lower extremity Current visit: No Status: Acute Category: Medical Code(s): I73.9 - Peripheral vascular disease, unspecified (3) History of amputation of lesser toe of right foot Current visit: No Status: Chronic Category: Surgical Code(s): Z89.421 - Acquired absence of other right toe(s) (4) Coronary arteriosclerosis Current visit: No Status: Chronic Category: Medical Code(s): I25.10 - Atherosclerotic heart disease of [place] coronary artery without angina pectoris (5) Diabetes mellitus Current visit: No Status: Chronic Qualifiers: Diabetes mellitus type: type 2 Diabetes mellitus supervisor 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s insulin use: denise shaffer supervisor 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s use Diabetes mellitus complication status: with neurologic complications Diabetes mellitus complication detail: with polyneuropathy Qualified Code(s): E11.42 - Type 2 diabetes mellitus with diabetic polyneuropathy Category: Medical Code(s): E11.9 - Type 2 diabetes mellitus without complications (6) Hemiparesis affecting left side as late effect of cerebrovascular accident Current visit: No Status: Chronic Category: Medical Code(s): I69.354 - Hemiplegia and hemiparesis following cerebral infarction affecting left non-charlie [place] side (7) History of CVA (cerebrovascular accident) Current visit: No Status: Chronic Category: Medical Code(s): Z86.73 - Personal history of transient ischemic attack (TIA), and cerebral infarction without residual deficits (8) History of left below knee amputation Current visit: No Status: Chronic Category: Medical Code(s): Z89.512 - Acquired absence of left leg below knee (9) Hyperlipidemia Current visit: No Status: Chronic Qualifiers: Hyperlipidemia type: unspecified Qualified Code(s): E78.5 - Hyperlipidemia, unspecified Category: Medical Code(s): E78.5 - Hyperlipidemia, unspecified (10) Hypertensive heart disease without heart failure Current visit: No Status: Chronic Category: Medical Code(s): I11.9 - Hypertensive heart disease without heart failure (11) assisted 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 Current visit: No Status: Chronic Category: Medical Code(s): Z79.01 - assisted (current) use of 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 (12) Obesity (BMI 30.0-34.9) Current visit: No Status: Chronic Category: Medical Code(s): E66.9 - Obesity, unspecified (13) Peripheral arterial occlusive disease Current visit: No Status: Chronic Category: Medical Code(s): I77.9 - Disorder of arteries and arterioles, unspecified (14) Type 2 diabetes mellitus with diabetic neuropathy, with long-term current use of insulin Current visit: No Status: Chronic Category: Medical Code(s): E11.40 - Type 2 diabetes mellitus with diabetic neuropathy, unspecified; Z79.4 - assisted (current) use of insulin <Irina Gil - 07/26/19 08:22> - Assessment and plan all Dx Assessment and Plan for all problems:: Plan to start Rocephin to empirically for UTI treatment and Dexamethasone for arteritis. <Shawn Alva - 07/26/19 13:27> Patient has been started on pain control. We will get a physical therapy consult. <Irina Gil - 07/26/19 08:30>
--- NOTE | 2019-07-26 09:48 | Pharmacy Consult Notes ---
[facility] Pharmacy VTE Monitoring - Patient Demographics Admission date: 07/25/19 Report Date: 07/26/19 Time: 09:47 Allergies/Adverse Reactions: Patient Allergies azithromycin Allergy (Intermediate, Verified 07/25/19 16:52) S-DIFF. BREATHING daptomycin [DAPTOMYCIN] Allergy (Intermediate, Verified 07/25/19 16:52) I-RASH/ITCHING levofloxacin Allergy (Intermediate, Verified 07/25/19 16:52) I-RASH Penicillins Allergy (Intermediate, Verified 07/25/19 16:52) I-HIVES Height: 1.52 m Weight: 77.111 kg Patient Problems: Current Active Problems Arteritis (Acute) - VTE Risk Labs: VTE Related Lab Results Hgb 9.1 g/dL (12.2-16.2) L 07/26/19 06:40 Hct 29.5 % (37.0-47.0) L 07/26/19 06:40 Plt Count 360 K/mm3 (142-424) 07/26/19 06:40 PT 22.1 seconds (9.4-11.8) H 07/25/19 17:00 INR 2.21 (0.9-1.1) H 07/25/19 17:00 APTT 58.7 seconds (23.6-34.0) H* D 07/25/19 17:00 BUN 20 mg/dL (7-18) H 07/26/19 06:40 Creatinine 1.21 mg/dL (0.55-1.02) H 07/26/19 06:40 Estimated Creat Clear 67 mL/min (50-200) 07/26/19 06:40 Was VTE Risk Assessment Performed: Yes VTE Score: 13 VTE Risk Level: Moderate Risk - Prophylaxis VTE Prophylaxis Ordered?: Yes Types of VTE Prophylaxis: TEDS Knee High Location of Applied Device: Bilateral Lower Extremeties
--- NOTE | 2019-07-26 15:30 | Electrocardiograph Report ---
APPROVED REPORT Exam: Resting ECG HR:79 bpm ECG Measurements Heart Rate 79 AXES ND 134 P -1 QRSd 84 QRS 12 QT 402 T103 QTc 460 <Conclusion> Normal sinus rhythm ST & T wave abnormality, consider lateral ischemia Prolonged QT Abnormal ECG Electronically signed by : Sabino Wilder, 07/26/2019 15:29:37
--- NOTE | 2019-07-27 08:10 | Progress Note ---
<Irina Gil - Last Filed: 07/27/19 08:07> Internal Medicine - PN: Subj *Date: 07/27/19 *Time: 08:07 Interval history: Patient states she is still having a lot of pain in her leg. She was unable to bear any weight with physical therapy yesterday. The pain is mostly in her calf and into her foot. She states her foot does seem more swollen today. The redness seems to be better. She slept off and on throughout the night and did eat breakfast this morning. Exam Vital signs and Labs for Last 24 Hours: Temp Pulse Resp BP Pulse Ox 98.1 F 83 16 148/76 H 100 07/27/19 08:00 07/27/19 08:00 07/27/19 08:00 07/27/19 08:00 07/27/19 08:00 Laboratory Results - last 24 hr 07/25/19 17:00: Urine Color Yellow, Urine Appearance Clear, Urine pH 5.5, Ur Specific [place] 1.015, Urine Protein Negative, Urine Glucose (UA) Negative, Urine Ketones Negative, Urine Blood Trace-i, Urine Nitrate Negative, Urine Bilirubin Negative, Urine Urobilinogen 0.2, Ur Leukocyte Esterase 1+ A, Urine WBC 3-5, Ur Squamous Epith Cells Occasional, Urine Bacteria Trace 07/26/19 20:49: POC Glucose 458 H* 07/27/19 06:13: POC Glucose 313 H* I & O for Last 24 hours: Intake & Output 07/24/19 07/25/19 07/26/19 07/27/19 11:59 11:59 11:59 11:59 Intake Total 480 / 480 Output Total 500 / 1100 1350 / 1350 Balance -500 / -1100 -870 / -870 Weight 170 lb Microbiology Reports for the Last 24 Hours: Microbiology 07/25/19 17:00 Urine,Catheterized Urine Culture - Final Escherichia coli - Constitutional no acute distress - *Routine Respiratory Exam Present: CTA bilaterally - *Routine Cardiovascular Exam Present: RRR - *Routine Abdominal Exam Present: soft, normoactive bowel sounds. Absent: tenderness - *Routine Extremities Exam Present: edema (RLE). Absent: cyanosis, clubbing - *Routine Skin Exam Present: warm. Absent: rash Comments: There is still some erythema along the right mid thigh and along the calf and martinez on the right leg. It is a little bit better than it was yesterday. - *Routine Neurological Exam Present: alert, oriented X3 Assessment and Plan (1) Arteritis Current visit: Yes Status: Acute Category: Medical Code(s): I77.6 - Arteritis, unspecified (2) Arterial insufficiency of lower extremity Current visit: No Status: Acute Category: Medical Code(s): I73.9 - Peripheral vascular disease, unspecified (3) History of amputation of lesser toe of right foot Current visit: No Status: Chronic Category: Surgical Code(s): Z89.421 - Acquired absence of other right toe(s) (4) Coronary arteriosclerosis Current visit: No Status: Chronic Category: Medical Code(s): I25.10 - Atherosclerotic heart disease of [place] coronary artery without angina pectoris (5) Diabetes mellitus Current visit: No Status: Chronic Qualifiers: Diabetes mellitus type: type 2 Diabetes mellitus [facility] insulin use: without [facility] use Diabetes mellitus complication status: with neurologic complications Diabetes mellitus complication detail: with polyneuropathy Qualified Code(s): E11.42 - Type 2 diabetes mellitus with diabetic polyneuropathy Category: Medical Code(s): E11.9 - Type 2 diabetes mellitus without complications (6) Hemiparesis affecting left side as late effect of cerebrovascular accident Current visit: No Status: Chronic Category: Medical Code(s): I69.354 - Hemiplegia and hemiparesis following cerebral infarction affecting left non- dominant side (7) History of CVA (cerebrovascular accident) Current visit: No Status: Chronic Category: Medical Code(s): Z86.73 - Personal history of transient ischemic attack (TIA), and cerebral infarction without residual deficits (8) History of left below knee amputation Current visit: No Status: Chronic Category: Medical Code(s): Z89.512 - Acquired absence of left leg below knee (9) Hyperlipidemia Current visit: No Status: Chronic Qualifiers: Hyperlipidemia type: unspecified Qualified Code(s): E78.5 - Hyperlipidemia, unspecified Category: Medical Code(s): E78.5 - Hyperlipidemia, unspecified (10) Hypertensive heart disease without heart failure Current visit: No Status: Chronic Category: Medical Code(s): I11.9 - Hypertensive heart disease without heart failure (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 Current visit: No Status: Chronic Category: Medical Code(s): Z79.01 - 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 of 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 (12) Obesity (BMI 30.0-34.9) Current visit: No Status: Chronic Category: Medical Code(s): E66.9 - Obesity, unspecified (13) Peripheral arterial occlusive disease Current visit: No Status: Chronic Category: Medical Code(s): I77.9 - Disorder of arteries and arterioles, unspecified (14) Type 2 diabetes mellitus with diabetic neuropathy, with long-term current use of insulin Current visit: No Status: Chronic Category: Medical Code(s): E11.40 - Type 2 diabetes mellitus with diabetic neuropathy, unspecified; Z79.4 - 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 She has been continued on pain control. She continues to have pain in her leg and therapy recommends placement for rehab. Will discuss further care with Dr. Alva. <Shawn Alva - Last Filed: 07/27/19 08:33> Internal Medicine - PN: Subj *Date: 07/27/19 *Time: 08:32 Exam Vital signs and Labs for Last 24 Hours: Temp Pulse Resp BP Pulse Ox 98.1 F 83 16 148/76 H 100 07/27/19 08:00 07/27/19 08:00 07/27/19 08:00 07/27/19 08:00 07/27/19 08:00 Laboratory Results - last 24 hr 07/26/19 20:49: POC Glucose 458 H* 07/27/19 06:13: POC Glucose 313 H* I & O for Last 24 hours: Intake & Output 07/24/19 07/25/19 07/26/19 07/27/19 23:59 23:59 23:59 23:59 Intake Total 480 / 480 Output Total 1850 / 1850 Balance -1850 / -1850 480 / 480 Weight 170 lb Microbiology Reports for the Last 24 Hours: Microbiology 07/25/19 17:00 Urine,Catheterized Urine Culture - Final Escherichia coli Assessment and Plan (1) Arteritis Current visit: Yes Status: Acute Category: Medical Code(s): I77.6 - Arteritis, unspecified (2) Arterial insufficiency of lower extremity Current visit: No Status: Acute Category: Medical Code(s): I73.9 - Peripheral vascular disease, unspecified (3) History of amputation of lesser toe of right foot Current visit: No Status: Chronic Category: Surgical Code(s): Z89.421 - Acquired absence of other right toe(s) (4) Coronary arteriosclerosis Current visit: No Status: Chronic Category: Medical Code(s): I25.10 - Atherosclerotic heart disease of [place] coronary artery without angina pectoris (5) Diabetes mellitus Current visit: No Status: Chronic Qualifiers: Diabetes mellitus type: type 2 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: 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 [facility] use Diabetes mellitus complication status: with neurologic complications Diabetes mellitus complication detail: with polyneuropathy Qualified Code(s): E11.42 - Type 2 diabetes mellitus with diabetic polyneuropathy Category: Medical Code(s): E11.9 - Type 2 diabetes mellitus without complications (6) Hemiparesis affecting left side as late effect of cerebrovascular accident Current visit: No Status: Chronic Category: Medical Code(s): I69.354 - He miplegia and hemiparesis following cerebral infarction affecting left non- dominant side (7) History of CVA (cerebrovascular accident) Current visit: No Status: Chronic Category: Medical Code(s): Z86.73 - Personal history of transient ischemic attack (TIA), and cerebral infarction without residual deficits (8) History of left below knee amputation Current visit: No Status: Chronic Category: Medical Code(s): Z89.512 - Acquired absence of left leg below knee (9) Hyperlipidemia Current visit: No Status: Chronic Qualifiers: Hyperlipidemia type: unspecified Qualified Code(s): E78.5 - Hyperlipidemia, unspecified Category: Medical Code(s): E78.5 - Hyperlipidemia, unspecified (10) Hypertensive heart disease without heart failure Current visit: No Status: Chronic Category: Medical Code(s): I11.9 - Hypertensive heart disease without heart failure (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 Current visit: No Status: Chronic Category: Medical Code(s): Z79.01 - custodial (current) use of 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 (12) Obesity (BMI 30.0-34.9) Current visit: No Status: Chronic Category: Medical Code(s): E66.9 - Obesity, unspecified (13) Peripheral arterial occlusive disease Current visit: No Status: Chronic Category: Medical Code(s): I77.9 - Disorder of arteries and arterioles, unspecified (14) Type 2 diabetes mellitus with diabetic neuropathy, with long-term current use of insulin Current visit: No Status: Chronic Category: Medical Code(s): E11.40 - Type 2 diabetes mellitus with diabetic neuropathy, unspecified; Z79.4 - 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 of insulin (15) Urine culture positive Current visit: Yes Status: Acute Category: Medical Code(s): R82.79 - Other abnormal findings on microbiological examination of urine (16) E. coli UTI Current visit: Yes Status: Acute Category: Medical Code(s): N39.0 - Urinary tract infection, site not specified; B96.20 - Unspecified Escherichia coli [E. coli] as the cause of diseases classified elsewhere - Assessment and plan all Dx Assessment and Plan for all problems:: Saw patient, agree with above note. Increase Levemir dose today.
[2019-07-28 05:37] LABS: Basophils % 0.2 % (0.1-2.0); Hematocrit 30.3 % (37.0-47.0); Hemoglobin 9.4 g/dL (12.2-16.2); Lymphocytes # 1.8 K/mm3 (0.7-4.5); Lymphocytes % 12.2 % (10-50); Mean Corpuscular HGB Conc 30.9 g/dL (31.8-35.4); Mean Platelet Volume 8.3 fl (7.4-10.4); Monocytes # 0.7 K/mm3 (0.1-1.0); Monocytes % 4.6 % (1.7-9.3); Neutrophils # 12.1 K/mm3 (1.8-7.8); Neutrophils % 83.1 % (37.0-80.0); Platelet Count 472 K/mm3 (142-424); Red Blood Count 3.65 M/mm3 (4.20-5.40); Red Cell Distribution Width 16.2 % (11.5-17.5); White Blood Count 14.5 K/mm3 (4.8-10.8)
[2019-07-28 05:44] LABS: INR 3.6 (0.9-1.1); Prothrombin Time 35.2 seconds (9.4-11.8)
[2019-07-28 05:45] LABS: Anion Gap 17.6 mEq/L (5-15)
[2019-07-28 05:50] LABS: Calcium 9.9 mg/dL (8.5-10.1)
--- NOTE | 2019-07-28 08:37 | Progress Note ---
Internal Medicine - PN: Subj *Date: 07/28/19 *Time: 08:34 Interval history: Patient with no new complaints today, still having some foot pain. Diarrhea has slowed down overnight. Pt was started on Flagyl for C. diff colitis yesterday evening. Exam Vital signs and Labs for Last 24 Hours: Temp Pulse Resp BP Pulse Ox 98.1 F 73 18 122/65 94 L 07/28/19 04:00 07/28/19 04:00 07/28/19 04:00 07/28/19 04:00 07/28/19 04:00 Laboratory Results - last 24 hr 07/27/19 11:17: POC Glucose 320 H* 07/27/19 14:14: Stl Aeromonas (PCR) Not detected, Stl C. cayetanensis PCR Not detected, Stool Rotavirus (PCR) Not detected, Stl Adenov F 40/41 PCR Not detected, Stool Astrovirus (PCR) Not detected, Stool Campylobacter PCR Not detected, Stl C.difficile Tox PCR Detected A, Stool Cryptosporidium PCR Not detected, Stl E.coli Shiga Tox PCR Not detected, Stool E coli O157 PCR Not detected, Stl Enterotoxigenic E PCR Not detected, Stool EPEC (PCR) Not detected, Stool EAEC (PCR) Not detected, Stl E. histolytica PCR Not detected, Stool Giardia Lamblia PCR Not detected, Stool Salmonella PCR Not detected, Stool Sapovirus (PCR) Not detected, Stl P. shigelloides PCR Not detected, Stl Shigella/EIEC PCR Not detected, St Y.enterocolitica PCR Not detected, Stool Vibrio (PCR) Not detected, Stl Vibrio cholerae PCR Not detected, Stl Norovirus GI/GII PCR Not detected 07/27/19 17:15: POC Glucose 285 H 07/27/19 21:54: POC Glucose 164 H 07/28/19 05:15: PT 35.2 H, INR 3.60 H 07/28/19 05:15: WBC 14.5 H D, RBC 3.65 L, Hgb 9.4 L, Hct 30.3 L, MCV 83.0, MCH 25.6 L, MCHC 30.9 L, RDW 16.2, Plt Count 472 H D, MPV 8.3, Neut % (Auto) 83.1 H, Lymph % (Auto) 12.2, [place] % (Auto) 4.6, Eos % (Auto) 0.0 L, Baso % (Auto) 0.2, Neut # (Auto) 12.1 H, Lymph # (Auto) 1.8, [place] # (Auto) 0.7, Eos # (Auto) 0.0, Baso # (Auto) 0.0 07/28/19 05:15: Sodium 133 L, Potassium 5.6 H D, Chloride 96 L, Carbon Dioxide 25, Anion Gap 17.6 H, BUN 34 H D, Creatinine 1.22 H, Estimated Creat Clear 66, Estimated GFR 46 L, Est GFR ( Amer) 56 L, Glucose 227 H, Calcium 9.9 D 07/28/19 06:29: POC Glucose 226 H Vital Signs - 24 hr 07/27/19 21:57 07/28/19 00:00 07/28/19 04:00 Temperature 98.3 F 98.3 F 98.1 F Pulse Rate [Right Radial] 78 65 73 Respiratory Rate 16 18 18 Blood Pressure [Left Arm] 137/68 116/63 122/65 02 Sat by Pulse Oximetry 95 94 L 94 L I & O for Last 24 hours: Intake & Output 07/25/19 07/26/19 07/27/19 07/28/19 23:59 23:59 23:59 23:59 Intake Total 1060 / 1060 Output Total 1850 / 1850 Balance -1850 / -1850 1060 / 1060 Weight 170 lb 170 lb 0.01 oz 170 lb 0.01 oz Microbiology Reports for the Last 24 Hours: Microbiology 07/25/19 17:06 Blood Blood Culture - Preliminary NO GROWTH AFTER 48 HOURS 07/25/19 17:06 Blood Blood Culture - Preliminary NO GROWTH AFTER 48 HOURS 07/25/19 17:00 Urine,Catheterized Urine Culture - Final Escherichia coli - Constitutional no acute distress - *Routine HEENT Exam Head: Present: normocephalic Eye: Present: EOMI, PERRL ENT: Present: mucous membranes moist - *Routine Neck Exam Present: supple. Absent: lymphadenopathy - *Routine Respiratory Exam Present: CTA bilaterally - *Routine Cardiovascular Exam Present: RRR - *Routine Abdominal Exam Present: soft, normoactive bowel sounds. Absent: tenderness - *Routine Extremities Exam Present: edema (some in right foot). Absent: cyanosis, clubbing - *Routine Skin Exam Present: warm Comments: dull redness of the right lower leg and foot, purple discoloration to the three remaining toes, borders marked - *Routine Neurological Exam Present: alert, oriented X3 Assessment and Plan (1) Arteritis Current visit: Yes Status: Acute Category: Medical Code(s): I77.6 - Arteritis, unspecified (2) Arterial insufficiency of lower extremity Current visit: No Status: Acute Category: Medical Code(s): I73.9 - Peripheral vascular disease, unspecified (3) History of amputation of lesser toe of right foot Current visit: No Status: Chronic Category: Surgical Code(s): Z89.421 - Acquired absence of other right toe(s) (4) Coronary arteriosclerosis Current visit: No Status: Chronic Category: Medical Code(s): I25.10 - Atherosclerotic heart disease of [place] coronary artery without angina pectoris (5) Diabetes mellitus Current visit: No Status: Chronic Qualifiers: Diabetes mellitus type: type 2 Diabetes mellitus shake backboard notcher insulin use: without shake backboard notcher use Diabetes mellitus complication status: with neurologic complications Diabetes mellitus complication detail: with polyneuropathy Qualified Code(s): E11.42 - Type 2 diabetes mellitus with diabetic polyneuropathy Category: Medical Code(s): E11.9 - Type 2 diabetes mellitus without complications (6) Hemiparesis affecting left side as late effect of cerebrovascular accident Current visit: No Status: Chronic Category: Medical Code(s): I69.354 - Hemiplegia and hemiparesis following cerebral infarction affecting left non- dominant side (7) History of CVA (cerebrovascular accident) Current visit: No Status: Chronic Category: Medical Code(s): Z86.73 - Personal history of transient ischemic attack (TIA), and cerebral infarction without residual deficits (8) History of left below knee amputation Current visit: No Status: Chronic Category: Medical Code(s): Z89.512 - Acquired absence of left leg below knee (9) Hyperlipidemia Current visit: No Status: Chronic Qualifiers: Hyperlipidemia type: unspecified Qualified Code(s): E78.5 - Hyperlipidemia, unspecified Category: Medical Code(s): E78.5 - Hyperlipidemia, unspecified (10) Hypertensive heart disease without heart failure Current visit: No Status: Chronic Category: Medical Code(s): I11.9 - Hypertensive heart disease without heart failure (11) penitentiary 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 Current visit: No Status: Chronic Category: Medical Code(s): 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 (12) Obesity (BMI 30.0-34.9) Current visit: No Status: Chronic Category: Medical Code(s): E66.9 - Obesity, unspecified (13) Peripheral arterial occlusive disease Current visit: No Status: Chronic Category: Medical Code(s): I77.9 - Disorder of arteries and arterioles, unspecified (14) Type 2 diabetes mellitus with diabetic neuropathy, with long-term current use of insulin Current visit: No Status: Chronic Category: Medical Code(s): E11.40 - Type 2 diabetes mellitus with diabetic neuropathy, unspecified; Z79.4 - heavy equipment sales associate (current) use of insulin (15) Urine culture positive Current visit: Yes Status: Acute Category: Medical Code(s): R82.79 - Other abnormal findings on microbiological examination of urine (16) E. coli UTI Current visit: Yes Status: Acute Category: Medical Code(s): N39.0 - Urinary tract infection, site not specified; B96.20 - Unspecified Escherichia coli [E. coli] as the cause of diseases classified elsewhere (17) C. difficile colitis Current visit: Yes Status: Acute Category: Medical Code(s): A04.72 - Enterocolitis due to Clostridium difficile, not specified as recurrent - Assessment and plan all Dx Assessment and Plan for all problems:: INR is high today, will hold Coumadin, continue flagyl for c. diff and Rocephin for UTI and Dexamethasone for arteritis.
--- NOTE | 2019-07-29 08:45 | Progress Note ---
Internal Medicine - PN: Subj *Date: 07/29/19 *Time: 08:42 Interval history: Patient states she feels better today. She is having less pain in her foot and her diarrhea has improved. No new complaints. Exam Vital signs and Labs for Last 24 Hours: Temp Pulse Resp BP Pulse Ox 97.5 F L 74 18 126/66 96 07/29/19 07:58 07/29/19 07:58 07/29/19 07:58 07/29/19 07:58 07/29/19 07:58 Laboratory Results - last 24 hr 07/28/19 11:44: POC Glucose 166 H 07/28/19 16:36: POC Glucose 181 H 07/28/19 21:27: POC Glucose 245 H 07/28/19 23:24: POC Glucose 269 H 07/29/19 05:24: POC Glucose 301 H* Vital Signs - 24 hr 07/28/19 12:00 07/28/19 15:40 07/28/19 20:00 Temperature 98.3 F 97.7 F 99.0 F Pulse Rate [Right Radial] 77 77 76 Respiratory Rate 18 18 17 Blood Pressure [Left Arm] 125/63 128/64 125/66 02 Sat by Pulse Oximetry 96 99 91 L 07/29/19 00:00 07/29/19 04:00 07/29/19 07:58 Temperature 97.9 F 97.9 F 97.5 F L Pulse Rate [Right Radial] 70 71 74 Respiratory Rate 17 17 18 Blood Pressure [Left Arm] 129/77 144/69 H 126/66 02 Sat by Pulse Oximetry 97 94 L 96 I & O for Last 24 hours: Intake & Output 07/26/19 07/27/19 07/28/19 07/29/19 23:59 23:59 23:59 23:59 Intake Total 1060 / 1060 1620 / 1620 700 / 700 Output Total 1850 / 1850 750 / 750 Balance -1850 / -1850 1060 / 1060 870 / 870 700 / 700 Weight 170 lb 0.01 oz 170 lb 0.01 oz 169 lb 15.975 oz - Constitutional no acute distress - *Routine HEENT Exam Head: Present: normocephalic Eye: Present: EOMI, PERRL ENT: Present: mucous membranes moist - *Routine Neck Exam Present: supple. Absent: lymphadenopathy - *Routine Cardiovascular Exam Present: RRR - *Routine Abdominal Exam Present: soft, normoactive bowel sounds. Absent: tenderness - *Routine Extremities Exam Absent: cyanosis, clubbing, edema - *Routine Skin Exam Present: warm Comments: Less redness and edema of the right leg and foot, purple discoloration of the toes is slightly worse today - *Routine Neurological Exam Present: alert, oriented X3 Assessment and Plan (1) Arteritis Current visit: Yes Status: Acute Category: Medical Code(s): I77.6 - Arteritis, unspecified (2) Arterial insufficiency of lower extremity Current visit: No Status: Acute Category: Medical Code(s): I73.9 - Peripheral vascular disease, unspecified (3) History of amputation of lesser toe of right foot Current visit: No Status: Chronic Category: Surgical Code(s): Z89.421 - Acquired absence of other right toe(s) (4) Coronary arteriosclerosis Current visit: No Status: Chronic Category: Medical Code(s): I25.10 - Atherosclerotic heart disease of [place] coronary artery without angina pectoris (5) Diabetes mellitus Current visit: No Status: Chronic Qualifiers: Diabetes mellitus type: type 2 Diabetes mellitus buttermaker helper insulin use: without retirement use Diabetes mellitus complication status: with neurologic complications Diabetes mellitus complication detail: with polyneuropathy Qualified Code(s): E11.42 - Type 2 diabetes mellitus with diabetic polyneuropathy Category: Medical Code(s): E11.9 - Type 2 diabetes mellitus without complications (6) Hemiparesis affecting left side as late effect of cerebrovascular accident Current visit: No Status: Chronic Category: Medical Code(s): I69.354 - Hemiplegia and hemiparesis following cerebral infarction affecting left non- dominant side (7) History of CVA (cerebrovascular accident) Current visit: No Status: Chronic Category: Medical Code(s): Z86.73 - Personal history of transient ischemic attack (TIA), and cerebral infarction without residual deficits (8) History of left below knee amputation Current visit: No Status: Chronic Category: Medical Code(s): Z89.512 - Acquired absence of left leg below knee (9) Hyperlipidemia Current visit: No Status: Chronic Qualifiers: Hyperlipidemia type: unspecified Qualified Code(s): E78.5 - Hyperlipidemia, unspecified Category: Medical Code(s): E78.5 - Hyperlipidemia, unspecified (10) Hypertensive heart disease without heart failure Current visit: No Status: Chronic Category: Medical Code(s): I11.9 - Hypertensive heart disease without heart failure (11) long-term 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 Current visit: No Status: Chronic Category: Medical Code(s): Z79.01 - terminologist (current) use of 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 (12) Obesity (BMI 30.0-34.9) Current visit: No Status: Chronic Category: Medical Code(s): E66.9 - Obesity, unspecified (13) Peripheral arterial occlusive disease Current visit: No Status: Chronic Category: Medical Code(s): I77.9 - Disorder of arteries and arterioles, unspecified (14) Type 2 diabetes mellitus with diabetic neuropathy, with long-term current use of insulin Current visit: No Status: Chronic Category: Medical Code(s): E11.40 - Type 2 diabetes mellitus with diabetic neuropathy, unspecified; Z79.4 - terminologist (current) use of insulin (15) Urine culture positive Current visit: Yes Status: Acute Category: Medical Code(s): R82.79 - Other abnormal findings on microbiological examination of urine (16) E. coli UTI Current visit: Yes Status: Acute Category: Medical Code(s): N39.0 - Urinary tract infection, site not specified; B96.20 - Unspecified Escherichia coli [E. coli] as the cause of diseases classified elsewhere (17) C. difficile colitis Current visit: Yes Status: Acute Category: Medical Code(s): A04.72 - Enterocolitis due to Clostridium difficile, not specified as recurrent - Assessment and plan all Dx Assessment and Plan for all problems:: No change in treatment today, continue current care.
--- NOTE | 2019-07-29 10:06 | Progress Note ---
Internal Medicine - PN: Subj *Date: 07/29/19 *Time: 10:05 Exam Vital signs and Labs for Last 24 Hours: Temp Pulse Resp BP Pulse Ox 97.5 F L 74 18 126/66 96 07/29/19 07:58 07/29/19 07:58 07/29/19 07:58 07/29/19 07:58 07/29/19 07:58 Laboratory Results - last 24 hr 07/28/19 11:44: POC Glucose 166 H 07/28/19 16:36: POC Glucose 181 H 07/28/19 21:27: POC Glucose 245 H 07/28/19 23:24: POC Glucose 269 H 07/29/19 05:24: POC Glucose 301 H* 07/29/19 08:30: POC Glucose 267 H I & O for Last 24 hours: Intake & Output 07/26/19 07/27/19 07/28/19 07/29/19 23:59 23:59 23:59 23:59 Intake Total 1060 / 1060 1620 / 1620 700 / 700 Output Total 1850 / 1850 750 / 750 Balance -1850 / -1850 1060 / 1060 870 / 870 700 / 700 Weight 77.111 kg 77.111 kg 77.11 kg Assessment and Plan (1) Arteritis Current visit: Yes Status: Acute Category: Medical Code(s): I77.6 - Arteritis, unspecified (2) Arterial insufficiency of lower extremity Current visit: No Status: Acute Category: Medical Code(s): I73.9 - Peripheral vascular disease, unspecified (3) History of amputation of lesser toe of right foot Current visit: No Status: Chronic Category: Surgical Code(s): Z89.421 - Acquired absence of other right toe(s) (4) Coronary arteriosclerosis Current visit: No Status: Chronic Category: Medical Code(s): I25.10 - Atherosclerotic heart disease of [place] coronary artery without angina pectoris (5) Diabetes mellitus Current visit: No Status: Chronic Qualifiers: Diabetes mellitus type: type 2 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 mellitus tank terminal gauger insulin use: without assisted use Diabetes mellitus complication status: with neurologic complications Diabetes mellitus complication detail: with polyneuropathy Qualified Code(s): E11.42 - Type 2 diabetes mellitus with diabetic polyneuropathy Category: Medical Code(s): E11.9 - Type 2 diabetes mellitus without complications (6) Hemiparesis affecting left side as late effect of cerebrovascular accident Current visit: No Status: Chronic Category: Medical Code(s): I69.354 - Hemiplegia and hemiparesis following cerebral infarction affecting left non- dominant side (7) History of CVA (cerebrovascular accident) Current visit: No Status: Chronic Category: Medical Code(s): Z86.73 - Personal history of transient ischemic attack (TIA), and cerebral infarction without residual deficits (8) History of left below knee amputation Current visit: No Status: Chronic Category: Medical Code(s): Z89.512 - Acquired absence of left leg below knee (9) Hyperlipidemia Current visit: No Status: Chronic Qualifiers: Hyperlipidemia type: unspecified Qualified Code(s): E78.5 - Hyperlipidemia, unspecified Category: Medical Code(s): E78.5 - Hyperlipidemia, unspecified (10) Hypertensive heart disease without heart failure Current visit: No Status: Chronic Category: Medical Code(s): I11.9 - Hypertensive heart disease without heart failure (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 Current visit: No Status: Chronic Category: Medical Code(s): Z79.01 - custodial (current) use of 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 (12) Obesity (BMI 30.0-34.9) Current visit: No Status: Chronic Category: Medical Code(s): E66.9 - Obesity, unspecified (13) Peripheral arterial occlusive disease Current visit: No Status: Chronic Category: Medical Code(s): I77.9 - Disorder of arteries and arterioles, unspecified (14) Type 2 diabetes mellitus with diabetic neuropathy, with long-term current use of insulin Current visit: No Status: Chronic Category: Medical Code(s): E11.40 - Type 2 diabetes mellitus with diabetic neuropathy, unspecified; Z79.4 - termite control servicer (current) use of insulin (15) Urine culture positive Current visit: Yes Status: Acute Category: Medical Code(s): R82.79 - Other abnormal findings on microbiological examination of urine (16) E. coli UTI Current visit: Yes Status: Acute Category: Medical Code(s): N39.0 - Urinary tract infection, site not specified; B96.20 - Unspecified Escherichia coli [E. coli] as the cause of diseases classified elsewhere (17) C. difficile colitis Current visit: Yes Status: Acute Category: Medical Code(s): A04.72 - Enterocolitis due to Clostridium difficile, not specified as recurrent The patient's infection will respond to the chosen ABx?: Yes Is the patient receiving the right drug, dose, and route?: Yes Could a more targeted ABx be ordered?: No (URINE CULTURE=E.COLI, SENSITIVE TO CEFTRIAXONE)
--- NOTE | 2019-07-30 08:27 | Progress Note ---
<Keisha Pedersen - Last Filed: 07/30/19 08:20> Internal Medicine - PN: Subj *Date: 07/30/19 *Time: 08:20 Interval history: Patient states leg continues to hurt. She does sleep at night. She is eating without difficulty. She feels the diarrhea is less. She is up uric in place and urine is clean and yellow. She denies shortness of breath and chest pain. She states she can stand with help but cannot walk. Exam Vital signs and Labs for Last 24 Hours: Temp Pulse Resp BP Pulse Ox 98.4 F 71 16 121/70 93 L 07/30/19 04:00 07/30/19 04:00 07/30/19 04:00 07/30/19 04:00 07/30/19 04:00 Laboratory Results - last 24 hr 07/29/19 08:30: POC Glucose 267 H 07/29/19 11:49: POC Glucose 207 H 07/29/19 16:10: POC Glucose 293 H 07/29/19 21:08: POC Glucose 255 H 07/30/19 06:36: POC Glucose 192 H I & O for Last 24 hours: Intake & Output 07/27/19 07/28/19 07/29/19 07/30/19 11:59 11:59 11:59 11:59 Intake Total 480 / 480 1260 / 1260 1740 / 1740 918 / 918 Output Total 1350 / 1350 1051 / 1051 550 / 550 Balance -870 / -870 1260 / 1260 689 / 689 368 / 368 Weight 170 lb 0.01 oz 170 lb 0.01 oz 169 lb 15.975 oz 117 lb 6 oz - Constitutional no acute distress Comments: Sitting up in bed and finishing her breakfast. Appears comfortable - *Routine Respiratory Exam Present: CTA bilaterally (Anteriorly and posteriorly) - *Routine Cardiovascular Exam Present: RRR - *Routine Abdominal Exam Present: soft, normoactive bowel sounds. Absent: tenderness - *Routine Extremities Exam Present: edema Comments: Right lower leg without edema. Right foot with erythema and edema. First 2 toes are black. - *Routine Neurological Exam Present: alert, oriented X3 Assessment and Plan (1) Arteritis Current visit: Yes Status: Acute Category: Medical Code(s): I77.6 - Arteritis, unspecified (2) Arterial insufficiency of lower extremity Current visit: No Status: Acute Category: Medical Code(s): I73.9 - Peripheral vascular disease, unspecified (3) History of amputation of lesser toe of right foot Current visit: No Status: Chronic Category: Surgical Code(s): Z89.421 - Acquired absence of other right toe(s) (4) Coronary arteriosclerosis Current visit: No Status: Chronic Category: Medical Code(s): I25.10 - Atherosclerotic heart disease of [place] coronary artery without angina pectoris (5) Diabetes mellitus Current visit: No Status: Chronic Qualifiers: Diabetes mellitus type: type 2 Diabetes mellitus 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 card tender insulin use: without 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 card tender use Diabetes mellitus complication status: with neurologic complications Diabetes mellitus complication detail: with polyneuropathy Qualified Code(s): E11.42 - Type 2 diabetes mellitus with diabetic polyneuropathy Category: Medical Code(s): E11.9 - Type 2 diabetes mellitus without complications (6) Hemiparesis affecting left side as late effect of cerebrovascular accident Current visit: No Status: Chronic Category: Medical Code(s): I69.354 - Hemiplegia and hemiparesis following cerebral infarction affecting left non- dominant side (7) History of CVA (cerebrovascular accident) Current visit: No Status: Chronic Category: Medical Code(s): Z86.73 - Personal history of transient ischemic attack (TIA), and cerebral infarction without residual deficits (8) History of left below knee amputation Current visit: No Status: Chronic Category: Medical Code(s): Z89.512 - Acquired absence of left leg below knee (9) Hyperlipidemia Current visit: No Status: Chronic Qualifiers: Hyperlipidemia type: unspecified Qualified Code(s): E78.5 - Hyperlipidemia, unspecified Category: Medical Code(s): E78.5 - Hyperlipidemia, unspecified (10) Hypertensive heart disease without heart failure Current visit: No Status: Chronic Category: Medical Code(s): I11.9 - Hypertensive heart disease without heart failure (11) 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 Current visit: No Status: Chronic Category: Medical Code(s): Z79.01 - senior living (current) use of 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 (12) Obesity (BMI 30.0-34.9) Current visit: No Status: Chronic Category: Medical Code(s): E66.9 - Obesity, unspecified (13) Peripheral arterial occlusive disease Current visit: No Status: Chronic Category: Medical Code(s): I77.9 - Disorder of arteries and arterioles, unspecified (14) Type 2 diabetes mellitus with diabetic neuropathy, with long-term current use of insulin Current visit: No Status: Chronic Category: Medical Code(s): E11.40 - Type 2 diabetes mellitus with diabetic neuropathy, unspecified; Z79.4 - senior living (current) use of insulin (15) Urine culture positive Current visit: Yes Status: Acute Category: Medical Code(s): R82.79 - Other abnormal findings on microbiological examination of urine (16) E. coli UTI Current visit: Yes Status: Acute Category: Medical Code(s): N39.0 - Urinary tract infection, site not specified; B96.20 - Unspecified Escherichia coli [E. coli] as the cause of diseases classified elsewhere (17) C. difficile colitis Current visit: Yes Status: Acute Category: Medical Code(s): A04.72 - Enterocolitis due to Clostridium difficile, not specified as recurrent - Assessment and plan all Dx Assessment and Plan for all problems:: Continue current care. Blood sugars have improved with increase in [place] <Shawn Alva - Last Filed: 07/30/19 09:10> Internal Medicine - PN: Subj *Date: 07/30/19 *Time: 09:09 Exam Vital signs and Labs for Last 24 Hours: Temp Pulse Resp BP Pulse Ox 97.0 F L 67 18 129/76 97 07/30/19 08:00 07/30/19 08:00 07/30/19 08:00 07/30/19 08:00 07/30/19 08:00 Laboratory Results - last 24 hr 07/29/19 11:49: POC Glucose 207 H 07/29/19 16:10: POC Glucose 293 H 07/29/19 21:08: POC Glucose 255 H 07/30/19 06:36: POC Glucose 192 H 07/30/19 08:50: WBC 13.0 H, RBC 3.86 L, Hgb 9.8 L, Hct 33.2 L, MCV 86.0, MCH 25.3 L, MCHC 29.4 L, RDW 16.7, Plt Count 560 H, MPV 8.5, Neut % (Auto) 72.4, Lymph % (Auto) 22.9, [place] % (Auto) 4.1, Eos % (Auto) 0.3, Baso % (Auto) 0.3, Neut # (Auto) 9.4 H, Lymph # (Auto) 3.0, [place] # (Auto) 0.5, Eos # (Auto) 0.0, Baso # (Auto) 0.0 07/30/19 08:50: Sodium 138, Potassium 4.0 D, Chloride 99, Carbon Dioxide 28, Anion Gap 15.0, BUN 43 H D, Creatinine 1.17 H, Estimated Creat Clear 48, Estimated GFR 49 L, Est GFR ( Amer) 59, Glucose 189 H, Calcium 9.5 I & O for Last 24 hours: Intake & Output 07/27/19 07/28/19 07/29/19 07/30/19 23:59 23:59 23:59 23:59 Intake Total 1060 / 1060 1620 / 1620 1380 / 1380 438 / 438 Output Total 750 / 750 301 / 301 550 / 550 Balance 1060 / 1060 870 / 870 1079 / 1079 -112 / -112 Weight 170 lb 0.01 oz 169 lb 15.975 oz 117 lb 6 oz Assessment and Plan (1) Arteritis Current visit: Yes Status: Acute Category: Medical Code(s): I77.6 - Arteritis, unspecified (2) Arterial insufficiency of lower extremity Current visit: No Status: Acute Category: Medical Code(s): I73.9 - Peripheral vascular disease, unspecified (3) History of amputation of lesser toe of right foot Current visit: No Status: Chronic Category: Surgical Code(s): Z89.421 - Acquired absence of other right toe(s) (4) Coronary arteriosclerosis Current visit: No Status: Chronic Category: Medical Code(s): I25.10 - Atherosclerotic heart disease of [place] coronary artery without angina pectoris (5) Diabetes mellitus Current visit: No Status: Chronic Qualifiers: Diabetes mellitus type: type 2 Diabetes mellitus 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 card tender insulin use: without 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 card tender use Diabetes mellitus complication status: with neurologic complications Diabetes mellitus complication detail: with polyneuropathy Qualified Code(s): E11.42 - Type 2 diabetes mellitus with diabetic polyneuropathy Category: Medical Code(s): E11.9 - Type 2 diabetes mellitus without complications (6) Hemiparesis affecting left side as late effect of cerebrovascular accident Current visit: No Status: Chronic Category: Medical Code(s): I69.354 - Hemiplegia and hemiparesis following cerebral infarction affecting left non- dominant side (7) History of CVA (cerebrovascular accident) Current visit: No Status: Chronic Category: Medical Code(s): Z86.73 - Personal history of transient ischemic attack (TIA), and cerebral infarction without residual deficits (8) History of left below knee amputation Current visit: No Status: Chronic Category: Medical Code(s): Z89.512 - Acquired absence of left leg below knee (9) Hyperlipidemia Current visit: No Status: Chronic Qualifiers: Hyperlipidemia type: unspecified Qualified Code(s): E78.5 - Hyperlipidemia, unspecified Category: Medical Code(s): E78.5 - Hyperlipidemia, unspecified (10) Hypertensive heart disease without heart failure Current visit: No Status: Chronic Category: Medical Code(s): I11.9 - Hypertensive heart disease without heart failure (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 Current visit: No Status: Chronic Category: Medical Code(s): Z79.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 (12) Obesity (BMI 30.0-34.9) Current visit: No Status: Chronic Category: Medical Code(s): E66.9 - Obesity, unspecified (13) Peripheral arterial occlusive disease Current visit: No Status: Chronic Category: Medical Code(s): I77.9 - Disorder of arteries and arterioles, unspecified (14) Type 2 diabetes mellitus with diabetic neuropathy, with long-term current use of insulin Current visit: No Status: Chronic Category: Medical Code(s): E11.40 - Type 2 diabetes mellitus with diabetic neuropathy, unspecified; Z79.4 - senior living (current) use of insulin (15) Urine culture positive Current visit: Yes Status: Acute Category: Medical Code(s): R82.79 - Other abnormal findings on microbiological examination of urine (16) E. coli UTI Current visit: Yes Status: Acute Category: Medical Code(s): N39.0 - Urinary tract infection, site not specified; B96.20 - Unspecified Escherichia coli [E. coli] as the cause of diseases classified elsewhere (17) C. difficile colitis Current visit: Yes Status: Acute Category: Medical Code(s): A04.72 - Enterocolitis due to Clostridium difficile, not specified as recurrent - Assessment and plan all Dx Assessment and Plan for all problems:: Saw patient, agree with above note, will have Dr. Calloway see patient today.
[2019-07-30 09:04] LABS: Basophils % 0.3 % (0.1-2.0); Eosinophils % 0.3 % (0.1-12.0); Hematocrit 33.2 % (37.0-47.0); Hemoglobin 9.8 g/dL (12.2-16.2); Lymphocytes % 22.9 % (10-50); Mean Corpuscular HGB Conc 29.4 g/dL (31.8-35.4); Mean Platelet Volume 8.5 fl (7.4-10.4); Monocytes # 0.5 K/mm3 (0.1-1.0); Monocytes % 4.1 % (1.7-9.3); Neutrophils # 9.4 K/mm3 (1.8-7.8); Neutrophils % 72.4 % (37.0-80.0); Platelet Count 560 K/mm3 (142-424); Red Blood Count 3.86 M/mm3 (4.20-5.40); Red Cell Distribution Width 16.7 % (11.5-17.5)
[2019-07-30 09:07] LABS: Calcium 9.5 mg/dL (8.5-10.1)
[2019-07-30 09:09] LABS: INR 1.61 (0.9-1.1); Prothrombin Time 16.4 seconds (9.4-11.8)
--- NOTE | 2019-07-30 09:40 | Consult Report ---
*Admission Date: 07/25/19 *Reason for consult:: Right toe ischemia *History of present illness: Ms. Nieto is a 53-year-old female who was admitted 07/25/2019 for her peripheral arterial disease. Dr. Padilla did a vascular procedure which resulted in increased blood flow to the right foot. Patient has a prior left leg amputation. Her right foot continues to be painful and dusky. I was consulted for surgical evaluation of possible amputation for the ischemic toes. Review of Systems - Review of Systems Review of systems:: pertinent systems reviewed and negative unless documented below - Constitutional Denies chills - Eyes Denies blind spots - ENT Denies abnormal hearing - *Cardiovascular Denies chest pain, Denies shortness of breath - *Respiratory Denies cough - *Gastrointestinal Reports change in bowel habits, Reports loose stools - *Genitourinary Denies abnormal periods - *Musculoskeletal Reports deformity, Reports joint swelling, Reports radiating pain into limb - Integumentary/Breasts Reports hair loss, Reports nail changes, Reports dry skin - *Neurologic Reports tingling/numbness/burning sensations, Reports weakness, Denies headache(s), Denies dizziness - Psychiatric Reports lack of enjoyment - Hematologic/Lymphatic Reports easy bruising [facility] History I have reviewed the patient's past medical history: Yes Medical History: Reports:: Atherosclerotic Heart Disease, Cancer, Coronary Artery Disease, Cerebrovascular Accident, Deep Vein Thrombosis, Depression, Diabetes Mellitus Type 1, Diabetes Mellitus Type 2, Gall Bladder Disease, Heart Murmur, Hyperlipidemia, Hypertension, MRSA, Myocardial Infarction, Peripheral Artery Disease, Peripheral Vascular Disease, Renal Disease, Renal Insufficiency, Transient Ischemic Attacks (TIA), Urinary Tract Infection Denies:: Asthma, Chronic Obstructive Pulmonary Disease (COPD), Internal Pacemaker, Lung Disease, Seizures *Have you ever received a pneumonia vaccine?: Yes *Have you received a flu vaccine this season?: Yes Other Medical History: Reports: Arthritis, Chemotherapy, Sinus Problems, Other. Denies: Blood Transfusion Reaction Laterality Cases: Left: Lumpectomy, Right: Mastectomy, Other, Bilateral: Carpal Tunnel Release Other Surgeries: Yes: Cancer Surgery, Cardiac Catheterization, Cardiac Surgery, Cholecystectomy, Colonoscopy, Coronary Stent, , Open Heart Surgery, Tubal Ligation, Other (amputee left leg and right toes, stent to right leg). No: Pacemaker Amputation: Yes (Left BKA 06/23/14; 4th toe right foot 2016) Fractures: No - *Social History Smoking Status: Never smoker # Packs/Day (cigarettes): 0 #Yrs smoked (if former smoker): 0 Alcohol Intake: never Alcohol Intake Frequency:: other Substance Use Type: denies use *Occupational Status:: disabled Housing: house Household Members: family *Travel in the last 8 weeks: None - Psychiatric History Pschychiatric History:: Reports:: Depression Family Hx:: Heart Attack Meds Home Medications Medication Instructions Recorded Confirmed Type amiloride 5 mg tablet 10 mg PO DAILY 09/22/17 07/25/19 History aspirin 25 mg-dipyridamole 200 mg 1 cap PO BID 09/22/17 07/25/19 History capsule,ext.release 12 hr multiphase baclofen 10 mg tablet 10 mg PO DAILY 09/22/17 07/25/19 History clopidogrel 75 mg tablet 75 mg PO DAILY 09/22/17 07/25/19 History glimepiride 2 mg tablet 2 mg PO DAILY 09/22/17 07/25/19 History metolazone 5 mg tablet 5 mg PO DAILY 09/22/17 07/25/19 History Baclofen [Lioresal 10mg tablet] 20 mg PO HS 11/20/17 07/25/19 History Citalopram Hydrobromide [Celexa 20 mg PO DAILY 11/20/17 07/25/19 History 20mg Tablet] Donepezil HCl [Aricept 5mg 5 mg PO HS 04/14/18 07/25/19 History Tablet] Potassium Chloride 60 meq PO TID 04/14/18 07/25/19 History Spironolactone [Aldactone 25mg 25 mg PO DAILY 04/14/18 07/25/19 History Tab] Furosemide [Furosemide 40MG tAB] 40 mg PO DAILY 04/15/18 07/25/19 History warfarin 5 mg tablet 5 mg PO SUTUWEFRSA tab 08/17/18 07/25/19 History Linagliptin/Metformin HCl 1 each PO BID 05/09/19 07/25/19 History [Jentadueto 2.5 mg-1000 mg Tab] Metoprolol Tartrate [Lopressor 12.5 mg PO DAILY 05/09/19 07/25/19 History 25mg tablet] Insulin Detemir [Levemir 40 unit SQ DAILY #0 05/10/19 07/25/19 Rx 100units/mL 3mL flexpen] Loratadine [Claritin] 10 mg PO DAILY 05/10/19 07/25/19 History Rosuvastatin Calcium [Crestor 20 20 mg PO HS 05/10/19 07/25/19 History mg Tablets] Warfarin Sodium 7.5 mg PO MOTH 05/10/19 07/26/19 History Cholecalciferol (Vitamin D3) 4,000 units PO DAILY 07/23/19 07/25/19 History [Vitamin D3] Insulin Lispro [HumaLOG 100 0 unit SQ DIRECTED 07/23/19 07/25/19 History units/mL 3mL vial (SSI)] Allergies Allergy/AdvReac Type Severity Reaction Status Date / Time azithromycin Allergy Intermediate S-DIFF. Verified 07/25/19 16:52 BREATHING daptomycin [DAPTOMYCIN] Allergy Intermediate I-RASH/ITCH Verified 07/25/19 16:52 ING levofloxacin Allergy Intermediate I-RASH Verified 07/25/19 16:52 Penicillins Allergy Intermediate I-HIVES Verified 07/25/19 16:52 Exam Vital signs and Labs for Last 24 Hours: Temp Pulse Resp BP Pulse Ox 97.0 F L 67 18 129/76 97 07/30/19 08:00 07/30/19 08:00 07/30/19 08:00 07/30/19 08:00 07/30/19 08:00 Laboratory Results - last 24 hr 07/29/19 11:49: POC Glucose 207 H 07/29/19 16:10: POC Glucose 293 H 07/29/19 21:08: POC Glucose 255 H 07/30/19 06:36: POC Glucose 192 H 07/30/19 08:50: PT 16.4 H, INR 1.61 H 07/30/19 08:50: WBC 13.0 H, RBC 3.86 L, Hgb 9.8 L, Hct 33.2 L, MCV 86.0, MCH 25.3 L, MCHC 29.4 L, RDW 16.7, Plt Count 560 H, MPV 8.5, Neut % (Auto) 72.4, Lymph % (Auto) 22.9, [place] % (Auto) 4.1, Eos % (Auto) 0.3, Baso % (Auto) 0.3, Neut # (Auto) 9.4 H, Lymph # (Auto) 3.0, [place] # (Auto) 0.5, Eos # (Auto) 0.0, Baso # (Auto) 0.0 07/30/19 08:50: Sodium 138, Potassium 4.0 D, Chloride 99, Carbon Dioxide 28, Anion Gap 15.0, BUN 43 H D, Creatinine 1.17 H, Estimated Creat Clear 48, Estimated GFR 49 L, Est GFR ( Amer) 59, Glucose 189 H, Calcium 9.5 I & O for Last 24 hours: Intake & Output 07/27/19 07/28/19 07/29/19 07/30/19 11:59 11:59 11:59 11:59 Intake Total 480 / 480 1260 / 1260 1740 / 1740 1018 / 1018 Output Total 1350 / 1350 1051 / 1051 550 / 550 Balance -870 / -870 1260 / 1260 689 / 689 468 / 468 Weight 170 lb 0.01 oz 170 lb 0.01 oz 169 lb 15.975 oz 117 lb 6 oz - Constitutional no acute distress - *Routine HEENT Exam Head: Present: normocephalic - *Routine Neck Exam Present: supple - *Routine Respiratory Exam Absent: respiratory distress - *Routine Cardiovascular Exam Present: RRR - *Routine Abdominal Exam Present: distended, guarding - *Routine Rectal Exam Patient deferred: visual exam - *Routine Exam Patient deferred: external exam - *Routine Extremities Exam Present: edema, pulses intact (weakly palpable DP, PT right), tenderness - *Routine Skin Exam Present: erythema, dry, wounds, gangrene (right toes 1,2,5) - *Routine Neurological Exam Present: alert - Detailed Lower Extremity Exam Top foot image: 1 - Right foot erythema and edema noted. There is a blister noted over the previously removed third and fourth digit interspace. When blister was popped there was purulent discharge which was cultured. Cap fill time decreased. Weak but palpable DP and PT pulses. Pain to palpation of the distal dorsal distal forefoot. No calf or thigh pain noted to the right lower extremity. Previous left leg amputation. Results - Labs Result Diagrams: 07/30/19 08:50 07/30/19 08:50 Labs: Abnormal lab results 07/29/19 07/29/19 07/29/19 Range/Units 11:49 16:10 21:08 WBC (4.8-10.8) K/mm3 RBC (4.20-5.40) M/mm3 Hgb (12.2-16.2) g/dL Hct (37.0-47.0) % MCH (27.0-31.2) pg MCHC (31.8-35.4) g/dL Plt Count (142-424) K/mm3 Neut # (Auto) (1.8-7.8) K/mm3 PT (9.4-11.8) seconds INR (0.9-1.1) BUN (7-18) mg/dL Creatinine (0.55-1.02) mg/dL Estimated GFR (>60) ml/min Glucose (74-106) mg/dL POC Glucose 207 H 293 H 255 H (70-110) 07/30/19 07/30/19 07/30/19 Range/Units 06:36 08:50 08:50 WBC 13.0 H (4.8-10.8) K/mm3 RBC 3.86 L (4.20-5.40) M/mm3 Hgb 9.8 L (12.2-16.2) g/dL Hct 33.2 L (37.0-47.0) % MCH 25.3 L (27.0-31.2) pg MCHC 29.4 L (31.8-35.4) g/dL Plt Count 560 H (142-424) K/mm3 Neut # (Auto) 9.4 H (1.8-7.8) K/mm3 PT 16.4 H (9.4-11.8) seconds INR 1.61 H (0.9-1.1) BUN (7-18) mg/dL Creatinine (0.55-1.02) mg/dL Estimated GFR (>60) ml/min Glucose (74-106) mg/dL POC Glucose 192 H (70-110) 07/30/19 Range/Units 08:50 WBC (4.8-10.8) K/mm3 RBC (4.20-5.40) M/mm3 Hgb (12.2-16.2) g/dL Hct (37.0-47.0) % MCH (27.0-31.2) pg MCHC (31.8-35.4) g/dL Plt Count (142-424) K/mm3 Neut # (Auto) (1.8-7.8) K/mm3 PT (9.4-11.8) seconds INR (0.9-1.1) BUN 43 H D (7-18) mg/dL Creatinine 1.17 H (0.55-1.02) mg/dL Estimated GFR 49 L (>60) ml/min Glucose 189 H (74-106) mg/dL POC Glucose (70-110) H & H 07/25/19 07/26/19 07/28/19 Range/Units 17:00 06:40 05:15 Hgb 9.4 L 9.1 L 9.4 L (12.2-16.2) g/dL Hct 29.6 L 29.5 L 30.3 L (37.0-47.0) % 07/30/19 Range/Units 08:50 Hgb 9.8 L (12.2-16.2) g/dL Hct 33.2 L (37.0-47.0) % Coagulation 07/25/19 07/28/19 07/30/19 Range/Units 17:00 05:15 08:50 INR 2.21 H 3.60 H 1.61 H (0.9-1.1) All other labs normal. - Diagnostic results Ankle/Foot x-ray: report reviewed, image reviewed Assessment and Plan (1) Arteritis Current visit: Yes Status: Acute Category: Medical Code(s): I77.6 - Arteritis, unspecified (2) Arterial insufficiency of lower extremity Current visit: No Status: Acute Category: Medical Code(s): I73.9 - Peripheral vascular disease, unspecified (3) History of amputation of lesser toe of right foot Current visit: No Status: Chronic Category: Surgical Code(s): Z89.421 - Acquired absence of other right toe(s) (4) Coronary arteriosclerosis Current visit: No Status: Chronic Category: Medical Code(s): I25.10 - Atherosclerotic heart disease of [place] coronary artery without angina pectoris (5) Diabetes mellitus Current visit: No Status: Chronic Qualifiers: Diabetes mellitus type: type 2 Diabetes mellitus group home insulin use: without rodent exterminator use Diabetes mellitus complication status: with neurologic complications Diabetes mellitus complication detail: with polyneuropathy Qualified Code(s): E11.42 - Type 2 diabetes mellitus with diabetic polyneuropathy Category: Medical Code(s): E11.9 - Type 2 diabetes mellitus without complications (6) Hemiparesis affecting left side as late effect of cerebrovascular accident Current visit: No Status: Chronic Category: Medical Code(s): I69.354 - Hemiplegia and hemiparesis following cerebral infarction affecting left non- dominant side (7) History of CVA (cerebrovascular accident) Current visit: No Status: Chronic Category: Medical Code(s): Z86.73 - Personal history of transient ischemic attack (TIA), and cerebral infarction without residual deficits (8) History of left below knee amputation Current visit: No Status: Chronic Category: Medical Code(s): Z89.512 - Acquired absence of left leg below knee (9) Hyperlipidemia Current visit: No Status: Chronic Qualifiers: Hyperlipidemia type: unspecified Qualified Code(s): E78.5 - Hyperlipidemia, unspecified Category: Medical Code(s): E78.5 - Hyperlipidemia, unspecified (10) Hypertensive heart disease without heart failure Current visit: No Status: Chronic Category: Medical Code(s): I11.9 - Hypertensive heart disease without heart failure (11) USP 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 Current visit: No Status: Chronic Category: Medical Code(s): Z79.01 - USP (current) use of 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 (12) Obesity (BMI 30.0-34.9) Current visit: No Status: Chronic Category: Medical Code(s): E66.9 - Obesity, unspecified (13) Peripheral arterial occlusive disease Current visit: No Status: Chronic Category: Medical Code(s): I77.9 - Disorder of arteries and arterioles, unspecified (14) Type 2 diabetes mellitus with diabetic neuropathy, with long-term current use of insulin Current visit: No Status: Chronic Category: Medical Code(s): E11.40 - Type 2 diabetes mellitus with diabetic neuropathy, unspecified; Z79.4 - termite control servicer (current) use of insulin (15) Urine culture positive Current visit: Yes Status: Acute Category: Medical Code(s): R82.79 - Other abnormal findings on microbiological examination of urine (16) E. coli UTI Current visit: Yes Status: Acute Category: Medical Code(s): N39.0 - Urinary tract infection, site not specified; B96.20 - Unspecified Escherichia coli [E. coli] as the cause of diseases classified elsewhere (17) C. difficile colitis Current visit: Yes Status: Acute Category: Medical Code(s): A04.72 - Enterocolitis due to Clostridium difficile, not specified as recurrent (18) Ischemic ulcer of toe of right foot Start date: 07/30/19 Current visit: Yes Status: Acute Category: Medical Code(s): L97.519 - Non- pressure chronic ulcer of other part of right foot with unspecified severity - Assessment and plan all Dx Assessment and Plan for all problems:: PRE-OP AMPUTATION/INFECTION RIGHT FOOT, PAD, ISCHEMIC TOES 1,2,5: Radiographs of the right foot from 07/22/2019 were reviewed and discussed with the patient. X-rays show no evidence of gas gangrene. There is soft tissue swelling noted. There is a prior amputation of the third and fourth digits. Generalized vascular calcification noted. No bony erosive process noted. Wound culture, 07/30/19: Right 2nd toe Toes were cleaned with Betadine. Utilizing a sharp 15 blade the blister overlying the third and fourth interspace extending onto the second toe was sharply debrided through skin into subcutaneous tissue. There was purulence with a slight malodor noted. Wound culture was taken. Foot was cleansed and a Betadine dry sterile dressing was applied. We discussed conservative versus surgical treatment options for the toe ischemia and PAD. Conservative treatment options include local wound care, oral and IV antibiotics, change in shoe wear, taping/padding, and off-loading. We discussed surgical intervention for amputation of the remaining toes, with a distal transmetatarsal amputation to provide a flap in order to close the wound. My recommendation at this point given the patient has had vascular procedure with Dr. Padilla and the blood supply is likely has good is is going to get at this point combined with the pus noted and underlying concern for recurrent osteomyelitis, I would recommend surgical intervention. Patient also understands that they could have wound healing complications including delayed healing and infection. We discussed that if the wound does not heal, it is possible that they may need a more proximal amputation and could result in further loss of digits, loss of partial foot or loss of leg. We discussed the risks and benefits in great detail. Other surgical risks include: prolonged pain and swelling, further infection requiring oral or IV antibiotics, delay in healing of soft tissue or bone, nerve or blood vessel damage, CRPS/RSD, DVT, anesthesia complications, and even . Dr. Alva for medical clearance. Pre-op labs ordered. Patient had recent EKG and chest x-ray 07/25/2019. Plan for surgery: today 07/30/19 @ 1400 1. Right foot incision and drainage 2. Right foot irrigation and debridement 3. Right transmetatarsal amputation 4. Right tendo Achilles lengthening
--- NOTE | 2019-07-30 14:04 | Progress Note ---
[facility] Anesthesia Checklist - Patient Identification Patient Identification: Arm Band - Structural Data Admitted From: Inpatient Planned Operative Procedure/s: right foot I&D, transmetatarsal amputation Consent for Planned Operative Procedure(s) Verified: Yes Verified Documents: Surgical Consent, History and Physical - NPO Status Verified Time NPO: 07:30 (light breakfast at 0730. Decision made to proceed with surgery after 6 hours of being NPO) - Additional verifications Anesthesia Reactions: No Hx Blood Transfusions: No Blood Transfusion Reaction: No - Airway Assessment C-Spine Mobility Assessed: Yes (mp2) TMJ Mobility Assessed: Yes Dentition: Edentulous - Neurological Assessment Level of Consciousness: Awake, Alert - Anesthesia Plan Anesthesia Risk discussed: Yes Anesthesia Plan: Verified ASA Class: III Anesthesia Type: General [facility] History Medical History: Reports:: Atherosclerotic Heart Disease, Cancer, Coronary Artery Disease, Cerebrovascular Accident, Deep Vein Thrombosis, Depression, Diabetes Mellitus Type 1, Diabetes Mellitus Type 2, Gall Bladder Disease, Heart Murmur, Hyperlipidemia, Hypertension, MRSA, Myocardial Infarction, Peripheral Artery Disease, Peripheral Vascular Disease, Renal Disease, Renal Insufficiency, Transient Ischemic Attacks (TIA), Urinary Tract Infection Denies:: Asthma, Chronic Obstructive Pulmonary Disease (COPD), Internal Pacemaker, Lung Disease, Seizures *Have you ever received a pneumonia vaccine?: Yes *Have you received a flu vaccine this season?: Yes Other Medical History: Reports: Arthritis, Chemotherapy, Sinus Problems, Other. Denies: Blood Transfusion Reaction Anesthesia experience/problems:: nac Laterality Cases: Left: Lumpectomy, Right: Mastectomy, Other, Bilateral: Carpal Tunnel Release Other Surgeries: Yes: Cancer Surgery, Cardiac Catheterization, Cardiac Surgery, Cholecystectomy, Colonoscopy, Coronary Stent, , Open Heart Surgery, Tubal Ligation, Other (amputee left leg and right toes, stent to right leg). No: Pacemaker Amputation: Yes (Left BKA 06/23/14; 4th toe right foot 2016) Fractures: No - *Social History Smoking Status: Never smoker # Packs/Day (cigarettes): 0 #Yrs smoked (if former smoker): 0 Alcohol Intake: never Alcohol Intake Frequency:: other Substance Use Type: denies use *Occupational Status:: disabled Housing: house Household Members: family *Travel in the last 8 weeks: None - Psychiatric History Pschychiatric History:: Reports:: Depression Family Hx:: Heart Attack
--- NOTE | 2019-07-30 15:03 | Progress Note ---
[facility] Anesthesia Record Part I Intake, IV Amount: 500 Estimated blood loss (mL): 25 Urine output (mL): 0 Blood Pressure: 108/76 SaO2: 95 Pulse Rate: 84 Respiratory Rate: 16 Temperature: 98.2 F Patient is:: Drowsy, Stable Stable to PACU at:: 14:55
--- NOTE | 2019-07-30 15:09 | Operative Note ---
Date of procedure: 07/30/19 Pre-op Diagnosis:: 1. Right foot DM infection 2. Right foot cellulitis 3. Right ischemic toes 4. Right foot gangrene 5. Right gastroc-soleus equinus Post-op Diagnosis:: Same Procedure performed:: 1. Right incision and drainage 2. Right transmetatarsal amputation 3. Right tendo Achilles lengthening Surgeon:: Tabatha Calloway DPM INDEPENDENT CROP CONSULTANT:: Bandar Dawn Anesthesia: local (20cc 0.5% marcaine plain), LMA Estimated blood loss (mL): 20 Clinical Note:: Ms. Nieto was admitted 07/25/2023 right lower extremity pain and ischemia yeah. She had a procedure with Dr. Padilla. I was consulted this morning for evaluation of dusky ischemic painful toes. She had previously had a third and fourth digit amputation by Dr. Drew. Patient has history of left below-knee amputation and difficulty healing wounds. She was cleared for surgery by Dr. Alva. She was also cleared by cardiology and her blood flow is "as good as it is going to get". We discussed conservative versus surgical treatment options for the toe ischemia and PAD. Conservative treatment options include local wound care, oral and IV antibiotics, change in shoe wear, taping/padding, and off- loading. We discussed surgical intervention for amputation of the remaining toes, with a distal transmetatarsal amputation to provide a flap in order to close the wound. My recommendation at this point given the patient has had vascular procedure with Dr. Padilla and the blood supply is likely has good is is going to get at this point combined with the pus noted and underlying concern for recurrent osteomyelitis, I would recommend surgical intervention. Patient also understands that they could have wound healing complications including delayed healing and infection. We discussed that if the wound does not heal, it is possible that they may need a more proximal amputation and could result in further loss of digits, loss of partial foot or loss of leg. We discussed the risks and benefits in great detail. Other surgical risks include: prolonged pain and swelling, further infection requiring oral or IV antibiotics, delay in healing of soft tissue or bone, nerve or blood vessel damage, CRPS/RSD, DVT, anesthesia complications, and even . Operative findings:: Dusky digits 1, 2 and 5. Previous amputation of third and fourth digits. Patricio hill noted to the previously removed third and fourth toes sites. There was purulent drainage coming from the blister extending onto the second toe. The toes were soft and crumbly. Metatarsal heads had some cortical erosion. No bleeding noted to the digits. There was good blood flow noted after the TMA. Operative note:: On this date and time patient was deemed an appropriate surgical candidate. With informed consent signed, the patient was taken to the operating theater. The patient was positioned supine. LMA anesthesia was induced. No tourniquet used. Right tendo Achilles lengthening: The right lower extremity was prepped and draped in normal sterile fashion. Attention was directed to the posterior leg. Three stab incisions where made overlying the Achilles. Utilizing the three holes, percutaneous sroin-section of the Achilles was performed with the foot maximally dorsiflexed. Release of the Achilles contracture was noted. The incisions were flushed with copious amounts of sterile saline and the wound was closed with 3-0 Prolene. Right foot incision and drainage: Attention was directed to the right distal blister site where a 15 blade was used to make an incision. Purulence was expressed. Intraoperative fluoroscopy was then used to jeff out the metatarsals. There were gangrenous changes and skin sloughing noted with dusky discoloration noted to first, second and fifth toes. Also discoloration noted to the sub-first through third MPJs. Cellulitis noted extending to the MPJs dorsally. A wound culture had been taken at bedside from the 2nd lateral toe blister site. Right transmetatarsal amputation: A fish mouth incision was mapped out. Utilizing a 15 blade dissection was carried down sharply to the level of the bone around the proximal phalanx bases, which were disarticulated from the metatarsals. The proximal phalanx bone was soft and crumbly and had a slight malodor to it. Portion of it was cut and sent for bone culture. Attention was then directed to the metatarsals. Utilizing power resection the metatarsal heads 1-5 were transected. A piece of the metatarsals 15 were sent as a bone culture. A piece of the second metatarsal was sent to pathology for a clean proximal margin. The metatarsals looked within normal limits, bone hard, no obvious signs of osteomyelitis noted. Intraoperative fluoroscopy was utilized to check the parabola, which was deemed to be appropriate. Next 3 L of bacitracin irrigation was used to flush the wound and pulse lavage. The wound was re-explored and no further signs of in fection noted. At this point the double-ended rasp was used to smooth down the edges of the bone so that there were no sharp prominences. Bleeding controlled. Vessels were ligated with electrocautery, as there was some but controlled bleeding. No tourniquet utilized. 3-0 Prolene was used to close skin in an interrupted simple suture fashion. Elias were used to reinforce the skin closure. The wounds were cleansed. 20cc 0.5% marcaine plain was injected at the end of the case. Betadine soaked Xeroform and dry sterile dressing was then applied to the right foot. The patient was awoken from anesthesia and transferred to recovery with vital signs stable and neurovascular status intact. Materials: 3-0 Prolene Skin elias Discharge/Plan: Transfer back to floor. Patient is to maintain dressing clean dry and intact. Continue antibiotics. Non weight bearing to the right lower extremity with DME assistance (walker, wheelchair), unless to transfer then patient may put weight to the heel protected in a fracture boot. Obtain post op films, right foot, 3 views. Plan for dressing change tomorrow. Will likely be discharged from Podiatry stand point. Will need continued antibiotics and PT for gait training and transfer help. Tourniquet time (min): 0 Condition: stable Disposition: floor Specimens:: 1. Right foot gross path 2. Right 2nd toe bone culture 3. Right 2-5th metatarsals bone culture 4. Right 2nd metatarsal bone path proximal margin Complications:: None
[2019-07-31 06:42] LABS: Basophils % 0.2 % (0.1-2.0); Eosinophils % 0.1 % (0.1-12.0); Hematocrit 27.7 % (37.0-47.0); Hemoglobin 8.9 g/dL (12.2-16.2); Lymphocytes # 2.7 K/mm3 (0.7-4.5); Mean Corpuscular Volume 84.2 fl (81-99); Mean Platelet Volume 8.2 fl (7.4-10.4); Monocytes # 0.8 K/mm3 (0.1-1.0); Monocytes % 5.6 % (1.7-9.3); Neutrophils # 10.2 K/mm3 (1.8-7.8); Neutrophils % 74.2 % (37.0-80.0); Platelet Count 535 K/mm3 (142-424); Red Blood Count 3.29 M/mm3 (4.20-5.40); Red Cell Distribution Width 16.2 % (11.5-17.5); White Blood Count 13.7 K/mm3 (4.8-10.8)
--- NOTE | 2019-07-31 06:51 | Progress Note ---
[facility] Anesthesia Record Part II Discharge Time: 15:25 Destination: Medical Surgical Department PACU nurse assessment reviewed?: Yes Patient Condition:: Good Anesthesia Complications:: None Swallowing reflex intact?: Yes Cyanosis?: No Blood Pressure: 125/70 Pulse Rate: 82 Temperature: 97.5 F Mental Status: Alert & Oriented Pain level:: 0 Nausea and/or vomitting:: None Intake, IV Amount: 0
[2019-07-31 06:55] LABS: Albumin Level 2.2 g/dL (3.4-5.0); Albumin/Globulin Ratio 0.4 (1.1-1.8); Anion Gap 13.7 mEq/L (5-15); Bilirubin,Total 0.2 mg/dL (0.2-1.0); Total Protein,Serum 7.2 g/dL (6.4-8.2)
--- NOTE | 2019-07-31 08:24 | Progress Note ---
<Keisha Pedersen - Last Filed: 07/31/19 08:21> Internal Medicine - PN: Subj *Date: 07/31/19 *Time: 08:21 Interval history: Patient states she feels better today. She denies pain in her right leg. She did sleep well last night. She is eating and drinking without difficulty. She is voiding QS. No further bowel movements have been documented. White count is 13.7 this morning with 74.2% neutrophils and 20% lymphocytes; blood chemistries reveal normal electrolytes with a BUN of 53 and creatinine 1.19; blood sugars are elevated in the p.m. and a.m. at 364 and 226. Patient was taken to surgery by Dr. Calloway yesterday 07/30/2019 with right incision and drainage, right trans-metatarsal amputation, right tendo Achilles lengthening. Patient tolerated the procedure well. Exam Vital signs and Labs for Last 24 Hours: Temp Pulse Resp BP Pulse Ox 98.0 F 82 16 119/63 97 07/31/19 08:00 07/31/19 08:00 07/31/19 08:00 07/31/19 08:00 07/31/19 08:00 Laboratory Results - last 24 hr 07/30/19 08:50: PT 16.4 H, INR 1.61 H 07/30/19 08:50: WBC 13.0 H, RBC 3.86 L, Hgb 9.8 L, Hct 33.2 L, MCV 86.0, MCH 25.3 L, MCHC 29.4 L, RDW 16.7, Plt Count 560 H, MPV 8.5, Neut % (Auto) 72.4, Lymph % (Auto) 22.9, [place] % (Auto) 4.1, Eos % (Auto) 0.3, Baso % (Auto) 0.3, Neut # (Auto) 9.4 H, Lymph # (Auto) 3.0, [place] # (Auto) 0.5, Eos # (Auto) 0.0, Baso # (Auto) 0.0 07/30/19 08:50: Sodium 138, Potassium 4.0 D, Chloride 99, Carbon Dioxide 28, Anion Gap 15.0, BUN 43 H D, Creatinine 1.17 H, Estimated Creat Clear 48, Estimated GFR 49 L, Est GFR ( Amer) 59, Glucose 189 H, Calcium 9.5 07/30/19 08:50: ESR 94 H 07/30/19 08:50: C-Reactive Protein 5.1 H 07/30/19 11:16: POC Glucose 207 H 07/30/19 15:22: POC Glucose 157 H 07/30/19 16:38: POC Glucose 182 H 07/30/19 19:59: POC Glucose 364 H* 07/31/19 06:25: WBC 13.7 H, RBC 3.29 L, Hgb 8.9 L, Hct 27.7 L, MCV 84.2, MCH 27.0, MCHC 32.0, RDW 16.2, Plt Count 535 H, MPV 8.2, Neut % (Auto) 74.2, Lymph % (Auto) 20.0, [place] % (Auto) 5.6, Eos % (Auto) 0.1, Baso % (Auto) 0.2, Neut # (Auto) 10.2 H, Lymph # (Auto) 2.7, [place] # (Auto) 0.8, Eos # (Auto) 0.0, Baso # (Auto) 0.0 07/31/19 06:25: Sodium 137, Potassium 4.7, Chloride 101, Carbon Dioxide 27, Anion Gap 13.7, BUN 53 H, Creatinine 1.19 H, Estimated Creat Clear 65, Estimated GFR 48 L, Est GFR ( Amer) 58 L, Glucose 219 H, Calcium 9.0, Total Bilirubin 0.2, AST 12 L, ALT 34, Alkaline Phosphatase 68, Total Protein 7.2, Albumin 2.2 L, Globulin 5.0 H, Albumin/Globulin Ratio 0.4 L 07/31/19 06:34: POC Glucose 226 H I & O for Last 24 hours: Intake & Output 07/28/19 07/29/19 07/30/19 07/31/19 11:59 11:59 11:59 11:59 Intake Total 1260 / 1260 1740 / 1740 1118 / 1118 1260 / 1260 Output Total 1051 / 1051 550 / 550 600 / 600 Balance 1260 / 1260 689 / 689 568 / 568 660 / 660 Weight 170 lb 0.01 oz 169 lb 15.975 oz 117 lb 6 oz 162 lb 4 oz Microbiology Reports for the Last 24 Hours: Microbiology 07/25/19 17:06 Blood Blood Culture - Final NO GROWTH AFTER 5 DAYS 07/25/19 17:06 Blood Blood Culture - Final NO GROWTH AFTER 5 DAYS 07/30/19 09:05 Toe,Right Fourth Gram Stain - Final - Constitutional no acute distress Comments: Sitting up in the bed eating her breakfast - *Routine Respiratory Exam Present: CTA bilaterally - *Routine Cardiovascular Exam Present: RRR - *Routine Abdominal Exam Present: soft, normoactive bowel sounds. Absent: tenderness - *Routine Extremities Exam Comments: Dressing over right foot is clean and dry. No edema of the upper leg. Assessment and Plan (1) Arteritis Current visit: Yes Status: Acute Category: Medical Code(s): I77.6 - Arteritis, unspecified (2) Arterial insufficiency of lower extremity Current visit: No Status: Acute Category: Medical Code(s): I73.9 - Peripheral vascular disease, unspecified (3) History of amputation of lesser toe of right foot Current visit: No Status: Chronic Category: Surgical Code(s): Z89.421 - Acquired absence of other right toe(s) (4) Coronary arteriosclerosis Current visit: No Status: Chronic Category: Medical Code(s): I25.10 - Atherosclerotic heart disease of [place] coronary artery without angina pectoris (5) Diabetes mellitus Current visit: No Status: Chronic Qualifiers: Diabetes mellitus type: type 2 Diabetes mellitus snf insulin use: without snf use Diabetes mellitus complication status: with neurologic complications Diabetes mellitus complication detail: with polyneuropathy Qualified Code(s): E11.42 - Type 2 diabetes mellitus with diabetic polyneuropathy Category: Medical Code(s): E11.9 - Type 2 diabetes mellitus without complications (6) Hemiparesis affecting left side as late effect of cerebrovascular accident Current visit: No Status: Chronic Category: Medical Code(s): I69.354 - Hemiplegia and hemiparesis following cerebral infarction affecting left non- dominant side (7) History of CVA (cerebrovascular accident) Current visit: No Status: Chronic Category: Medical Code(s): Z86.73 - Personal history of transient ischemic attack (TIA), and cerebral infarction without residual deficits (8) History of left below knee amputation Current visit: No Status: Chronic Category: Medical Code(s): Z89.512 - Acquired absence of left leg below knee (9) Hyperlipidemia Current visit: No Status: Chronic Qualifiers: Hyperlipidemia type: unspecified Qualified Code(s): E78.5 - Hyperlipidemia, unspecified Category: Medical Code(s): E78.5 - Hyperlipidemia, unspecified (10) Hypertensive heart disease without heart failure Current visit: No Status: Chronic Category: Medical Code(s): I11.9 - Hypertensive heart disease without heart failure (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 Current visit: No Status: Chronic Category: Medical Code(s): Z79.01 - half-way (current) use of 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 (12) Obesity (BMI 30.0-34.9) Current visit: No Status: Chronic Category: Medical Code(s): E66.9 - Obesity, unspecified (13) Peripheral arterial occlusive disease Current visit: No Status: Chronic Category: Medical Code(s): I77.9 - Disorder of arteries and arterioles, unspecified (14) Type 2 diabetes mellitus with diabetic neuropathy, with long-term current use of insulin Current visit: No Status: Chronic Category: Medical Code(s): E11.40 - Type 2 diabetes mellitus with diabetic neuropathy, unspecified; Z79.4 - half-way (current) use of insulin (15) Urine culture positive Current visit: Yes Status: Acute Category: Medical Code(s): R82.79 - Other abnormal findings on microbiological examination of urine (16) E. coli UTI Current visit: Yes Status: Acute Category: Medical Code(s): N39.0 - U rinary tract infection, site not specified; B96.20 - Unspecified Escherichia coli [E. coli] as the cause of diseases classified elsewhere (17) C. difficile colitis Current visit: Yes Status: Acute Category: Medical Code(s): A04.72 - Enterocolitis due to Clostridium difficile, not specified as recurrent (18) Ischemic ulcer of toe of right foot Start date: 07/30/19 Current visit: Yes Status: Acute Category: Medical Code(s): L97.519 - Non- pressure chronic ulcer of other part of right foot with unspecified severity (19) Amputation of right great toe Current visit: Yes Status: Acute Category: Medical Code(s): S98.111A - Complete traumatic amputation of right great toe, initial encounter (20) Amputation of toe of right foot Current visit: Yes Status: Acute Category: Medical Code(s): S98.131A - Complete traumatic amputation of one right lesser toe, initial encounter - Assessment and plan all Dx Assessment and Plan for all problems:: Postop care. Continue with antibiotics. Work with physical therapy and getting out of bed and transfers <Shawn Alva - Last Filed: 07/31/19 09:11> Internal Medicine - PN: Subj *Date: 07/31/19 *Time: 09:11 Exam Vital signs and Labs for Last 24 Hours: Temp Pulse Resp BP Pulse Ox 98.0 F 82 16 119/63 97 07/31/19 08:00 07/31/19 08:00 07/31/19 08:00 07/31/19 08:00 07/31/19 08:00 Laboratory Results - last 24 hr 07/30/19 08:50: PT 16.4 H, INR 1.61 H 07/30/19 08:50: ESR 94 H 07/30/19 08:50: C-Reactive Protein 5.1 H 07/30/19 11:16: POC Glucose 207 H 07/30/19 15:22: POC Glucose 157 H 07/30/19 16:38: POC Glucose 182 H 07/30/19 19:59: POC Glucose 364 H* 07/31/19 06:25: WBC 13.7 H, RBC 3.29 L, Hgb 8.9 L, Hct 27.7 L, MCV 84.2, MCH 27.0, MCHC 32.0, RDW 16.2, Plt Count 535 H, MPV 8.2, Neut % (Auto) 74.2, Lymph % (Auto) 20.0, [place] % (Auto) 5.6, Eos % (Auto) 0.1, Baso % (Auto) 0.2, Neut # (Auto) 10.2 H, Lymph # (Auto) 2.7, [place] # (Auto) 0.8, Eos # (Auto) 0.0, Baso # (Auto) 0.0 07/31/19 06:25: Sodium 137, Potassium 4.7, Chloride 101, Carbon Dioxide 27, Anion Gap 13.7, BUN 53 H, Creatinine 1.19 H, Estimated Creat Clear 65, Estimated GFR 48 L, Est GFR ( Amer) 58 L, Glucose 219 H, Calcium 9.0, Total Bi lirubin 0.2, AST 12 L, ALT 34, Alkaline Phosphatase 68, Total Protein 7.2, Albumin 2.2 L, Globulin 5.0 H, Albumin/Globulin Ratio 0.4 L 07/31/19 06:34: POC Glucose 226 H I & O for Last 24 hours: Intake & Output 07/28/19 07/29/19 07/30/19 07/31/19 23:59 23:59 23:59 23:59 Intake Total 1620 / 1620 1380 / 1380 1438 / 1438 360 / 360 Output Total 750 / 750 301 / 301 550 / 550 600 / 600 Balance 870 / 870 1079 / 1079 888 / 888 -240 / -240 Weight 169 lb 15.975 oz 117 lb 6 oz 162 lb 4 oz Microbiology Reports for the Last 24 Hours: Microbiology 07/25/19 17:06 Blood Blood Culture - Final NO GROWTH AFTER 5 DAYS 07/25/19 17:06 Blood Blood Culture - Final NO GROWTH AFTER 5 DAYS 07/30/19 09:05 Toe,Right Fourth Gram Stain - Final Assessment and Plan (1) Arteritis Current visit: Yes Status: Acute Category: Medical Code(s): I77.6 - Arteritis, unspecified (2) Arterial insufficiency of lower extremity Current visit: No Status: Acute Category: Medical Code(s): I73.9 - Peripheral vascular disease, unspecified (3) History of amputation of lesser toe of right foot Current visit: No Status: Chronic Category: Surgical Code(s): Z89.421 - Acquired absence of other right toe(s) (4) Coronary arteriosclerosis Current visit: No Status: Chronic Category: Medical Code(s): I25.10 - Atherosclerotic heart disease of [place] coronary artery without angina pectoris (5) Diabetes mellitus Current visit: No Status: Chronic Qualifiers: Diabetes mellitus type: type 2 Diabetes mellitus snf insulin use: without tank terminal gauger use Diabetes mellitus complication status: with neurologic complications Diabetes mellitus complication detail: with polyneuropathy Qualified Code(s): E11.42 - Type 2 diabetes mellitus with diabetic polyneuropathy Category: Medical Code(s): E11.9 - Type 2 diabetes mellitus without complications (6) Hemiparesis affecting left side as late effect of cerebrovascular accident Current visit: No Status: Chronic Category: Medical Code(s): I69.354 - Hemiplegia and hemiparesis following cerebral infarction affecting left non- dominant side (7) History of CVA (cerebrovascular accident) Current visit: No Status: Chronic Category: Medical Code(s): Z86.73 - Personal history of transient ischemic attack (TIA), and cerebral infarction without residual deficits (8) History of left below knee amputation Current visit: No Status: Chronic Category: Medical Code(s): Z89.512 - Acquired absence of left leg below knee (9) Hyperlipidemia Current visit: No Status: Chronic Qualifiers: Hyperlipidemia type: unspecified Qualified Code(s): E78.5 - Hyperlipidemia, unspecified Category: Medical Code(s): E78.5 - Hyperlipidemia, unspecified (10) Hypertensive heart disease without heart failure Current visit: No Status: Chronic Category: Medical Code(s): I11.9 - Hypertensive heart disease without heart failure (11) half-way 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 Current visit: No Status: Chronic Category: Medical Code(s): 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 (12) Obesity (BMI 30.0-34.9) Current visit: No Status: Chronic Category: Medical Code(s): E66.9 - Obesity, unspecified (13) Peripheral arterial occlusive disease Current visit: No Status: Chronic Category: Medical Code(s): I77.9 - Disorder of arteries and arterioles, unspecified (14) Type 2 diabetes mellitus with diabetic neuropathy, with long-term current use of insulin Current visit: No Status: Chronic Category: Medical Code(s): E11.40 - Type 2 diabetes mellitus with diabetic neuropathy, unspecified; Z79.4 - 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 coli UTI Current visit: Yes Status: Acute Category: Medical Code(s): N39.0 - Urinary tract infection, site not specified; B96.20 - Unspecified Escherichia coli [E. coli] as the cause of diseases classified elsewhere (17) C. difficile colitis Current visit: Yes Status: Acute Category: Medical Code(s): A04.72 - Enterocolitis due to Clostridium difficile, not specified as recurrent (18) Ischemic ulcer of toe of right foot Start date: 07/30/19 Current visit: Yes Status: Acute Category: Medical Code(s): L97.519 - Non- pressure chronic ulcer of other part of right foot with unspecified severity (19) Amputation of right great toe Current visit: Yes Status: Acute Category: Medical Code(s): S98.111A - Complete traumatic amputation of right great toe, initial encounter (20) Amputation of toe of right foot Current visit: Yes Status: Acute Category: Medical Code(s): S98.131A - Complete traumatic amputation of one right lesser toe, initial encounter - Assessment and plan all Dx Assessment and Plan for all problems:: Saw patient, agree with above note.
--- NOTE | 2019-07-31 08:36 | Progress Note ---
Subjective Date: 07/31/19 Time: 07:55 Principal diagnosis: Right ischemic toes, gangrene, cellulitis Interval history: Ms. Nieto underwent surgical intervention yesterday for right foot cellulitis, gangrene with ischemic toes. She reports no pain since surgery. She is resting comfortably in bed eating breakfast. She denies new or worsening nausea, fever/chills, shortness of breath and chest pain. PN: Obj Ex Vital signs: Temp Pulse Resp BP Pulse Ox 98.0 F 82 16 119/63 97 07/31/19 08:00 07/31/19 08:00 07/31/19 08:00 07/31/19 08:00 07/31/19 08:00 - Constitutional no acute distress - Routine HEENT Exam Head: Present: normocephalic - Routine Neck Exam Present: supple - Routine Respiratory Exam Absent: respiratory distress - Routine Cardiovascular Exam Present: RRR - Routine Abdominal Exam Present: guarding - Routine Extremities Exam Present: edema, pulses intact, amputation (L BKA, T RMA) - Detailed Lower Extremity Exam Top foot image: 1 - Right TMA, CASSANDRA. Sutures and jeremy are clean dry and intact. No purulence or ascending cellulitis noted. No POP. No calf or thigh pain noted. Skin temp warm, weakly palpable pedal pulses noted. Progress Note: A&P (1) Arteritis Status: Acute Current Visit: Yes (2) Arterial insufficiency of lower extremity Status: Acute Current Visit: No (3) History of amputation of lesser toe of right foot Status: Chronic Current Visit: No (4) Coronary arteriosclerosis Status: Chronic Current Visit: No (5) Diabetes mellitus Status: Chronic Current Visit: No (6) Hemiparesis affecting left side as late effect of cerebrovascular accident Status: Chronic Current Visit: No (7) History of CVA (cerebrovascular accident) Status: Chronic Current Visit: No (8) History of left below knee amputation Status: Chronic Current Visit: No (9) Hyperlipidemia Status: Chronic Current Visit: No (10) Hypertensive heart disease without heart failure Status: Chronic Current Visit: No (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 coli UTI Status: Acute Current Visit: Yes (17) C. difficile colitis Status: Acute Current Visit: Yes (18) Ischemic ulcer of toe of right foot Status: Acute Current Visit: Yes Assessment and Plan for All Diagnoses:: Sx, 07/30/19: S/p Right foot incision and drainage, transmetatarsal amputation (TMA), tendo Achilles lengthening (CASSANDRA) POD #1 Sutures and jeremy are clean, dry and intact to the incision sites with no signs of infection. Xeroform, betadine soaked 4x4s, dry 4x4's, kerlix and Frank bandage were placed to the foot. Patient is to keep this dressing clean, dry, and intact. She is to continue non weight bearing. Unless for transfers. -PT for gait training this a.m. Nonweightbearing in fracture boot unless transfers to wheelchair, bedside commode. In which case when she is doing transfers she can be partial weightbearing to the right heel in the fracture boot. -Monitor wound and Intra-Op bone cultures -Foot is stable from a podiatry standpoint -Okay from podiatry standpoint to be discharged to the SNF facility senior living orders: -Nonweightbearing if unassisted to right lower extremity, bed rest -If up for transfers with assistance (PT, nurse, etc), patient may put some weight to the right heel in the fracture boot only -Maintain dressing and boot clean dry and intact -Hold ice -Continue anti-coagulation therapy -Continue antibiotics -Plan to change dressing every other day: clean incision (dorsal TMA site and posterior ankle) with skin grave cleaner or betadine. Dry. Apply xeroform to incisions with betadine soaked 4x4s, dry 4x4s, kerlix, and Frank. Then fracture boot -Plan to follow up with Podiatry out patient in one week
[2019-08-01 06:27] LABS: Basophils % 0.2 % (0.1-2.0); Eosinophils % 0.1 % (0.1-12.0); Hematocrit 28.8 % (37.0-47.0); Hemoglobin 8.8 g/dL (12.2-16.2); Lymphocytes # 2.9 K/mm3 (0.7-4.5); Mean Corpuscular HGB Conc 30.8 g/dL (31.8-35.4); Mean Corpuscular Volume 84.5 fl (81-99); Mean Platelet Volume 8.5 fl (7.4-10.4); Monocytes % 7.1 % (1.7-9.3); Neutrophils # 9.7 K/mm3 (1.8-7.8); Neutrophils % 71.7 % (37.0-80.0); Platelet Count 610 K/mm3 (142-424); Red Cell Distribution Width 16.7 % (11.5-17.5); White Blood Count 13.6 K/mm3 (4.8-10.8)
[2019-08-01 06:34] LABS: INR 1.47 (0.9-1.1)
[2019-08-01 06:38] LABS: Anion Gap 11.7 mEq/L (5-15); Calcium 8.7 mg/dL (8.5-10.1)
--- NOTE | 2019-08-01 07:56 | Progress Note ---
<Keisha Pedersen - Last Filed: 08/01/19 07:52> Internal Medicine - PN: Subj *Date: 08/01/19 *Time: 07:52 Interval history: Patient states she is doing well today. She did get up into the wheelchair yesterday but slid out of it. States she does this at home sometimes as well. She denies having any injuries. She has been eating and drinking well. Bowels have moved and are normal. No further diarrhea. She denies chest pain and shortness of breath. She states her discomfort in her ankle is like a quick pinch. Repeat labs show white count of 13,600 this a.m. with a hemoglobin of 8.8 hematocrit of 28.8; chemistries shows slightly low sodium of 136 and potassium of 4.7; kidney function is stable with a BUN of 43 and creatinine of 1.16; blood sugars continue to be elevated Exam Vital signs and Labs for Last 24 Hours: Temp Pulse Resp BP Pulse Ox 98.8 F 79 20 104/62 L 95 08/01/19 04:00 08/01/19 04:00 08/01/19 04:00 08/01/19 04:00 08/01/19 04:00 Laboratory Results - last 24 hr 07/31/19 11:35: POC Glucose 225 H 07/31/19 16:38: POC Glucose 355 H* 08/01/19 05:52: POC Glucose 250 H 08/01/19 06:07: WBC 13.6 H, RBC 3.40 L, Hgb 8.8 L, Hct 28.8 L, MCV 84.5, MCH 26.0 L, MCHC 30.8 L, RDW 16.7, Plt Count 610 H, MPV 8.5, Neut % (Auto) 71.7, Lymph % (Auto) 21.0, [place] % (Auto) 7.1, Eos % (Auto) 0.1, Baso % (Auto) 0.2, Neut # (Auto) 9.7 H, Lymph # (Auto) 2.9, [place] # (Auto) 1.0, Eos # (Auto) 0.0, Baso # (Auto) 0.0 08/01/19 06:07: PT 15.0 H, INR 1.47 H 08/01/19 06:07: Sodium 136 L, Potassium 4.7, Chloride 100, Carbon Dioxide 29, Anion Gap 11.7, BUN 43 H, Creatinine 1.16 H, Estimated Creat Clear 67, Estimated GFR 49 L, Est GFR ( Amer) 60, Glucose 245 H, Calcium 8.7 I & O for Last 24 hours: Intake & Output 07/29/19 07/30/19 07/31/19 08/01/19 11:59 11:59 11:59 11:59 Intake Total 1740 / 1740 1118 / 1118 1460 / 1460 450 / 450 Output Total 1051 / 1051 550 / 550 600 / 600 Balance 689 / 689 568 / 568 860 / 860 450 / 450 Weight 169 lb 15.975 oz 117 lb 6 oz 162 lb 4 oz 164 lb 9 oz Microbiology Reports for the Last 24 Hours: Microbiology 07/30/19 13:57 Foot,Right - Right Gram Stain - Final 07/30/19 13:57 Foot,Right - Right Surgical Biopsy Culture - Preliminary NO GROWTH AFTER 24 HOURS 07/30/19 13:57 Toe,Second Right Gram Stain - Final 07/30/19 13:57 Toe,Second Right Surgical Biopsy Culture - Preliminary NO GROWTH AFTER 24 HOURS 07/30/19 09:05 Toe,Right Fourth Gram Stain - Final 07/30/19 09:05 Toe,Right Fourth Wound Culture - Preliminary NO GROWTH AFTER 24 HOURS - Constitutional no acute distress Comments: Alert and appears comfortable - *Routine Respiratory Exam Present: CTA bilaterally (Anteriorly and posteriorly) - *Routine Cardiovascular Exam Present: RRR - *Routine Abdominal Exam Present: soft, normoactive bowel sounds. Absent: tenderness - *Routine Extremities Exam Absent: edema Comments: Right leg with foot dressing which is clean and dry. No edema. - *Routine Neurological Exam Present: alert, oriented X3 Assessment and Plan (1) Arteritis Current visit: Yes Status: Acute Category: Medical Code(s): I77.6 - Arteritis, unspecified (2) Arterial insufficiency of lower extremity Current visit: No Status: Acute Category: Medical Code(s): I73.9 - Peripheral vascular disease, unspecified (3) History of amputation of lesser toe of right foot Current visit: No Status: Chronic Category: Surgical Code(s): Z89.421 - Acquired absence of other right toe(s) (4) Coronary arteriosclerosis Current visit: No Status: Chronic Category: Medical Code(s): I25.10 - Atherosclerotic heart disease of [place] coronary artery without angina pectoris (5) Diabetes mellitus Current visit: No Status: Chronic Qualifiers: Diabetes mellitus type: type 2 Diabetes mellitus snf insulin use: without snf use Diabetes mellitus complication status: with neurologic complications Diabetes mellitus complication detail: with polyneuropathy Qualified Code(s): E11.42 - Type 2 diabetes mellitus with diabetic polyneuropathy Category: Medical Code(s): E11.9 - Type 2 diabetes mellitus without complications (6) Hemiparesis affecting left side as late effect of cerebrovascular accident Current visit: No Status: Chronic Category: Medical Code(s): I69.354 - Hemiplegia and hemiparesis following cerebral infarction affecting left non- dominant side (7) History of CVA (cerebrovascular accident) Current visit: No Status: Chronic Category: Medical Code(s): Z86.73 - Personal history of transient ischemic attack (TIA), and cerebral infarction without residual deficits (8) History of left below knee amputation Current visit: No Status: Chronic Category: Medical Code(s): Z89.512 - Acquired absence of left leg below knee (9) Hyperlipidemia Current visit: No Status: Chronic Qualifiers: Hyperlipidemia type: unspecified Qualified Code(s): E78.5 - Hyperlipidemia, unspecified Category: Medical Code(s): E78.5 - Hyperlipidemia, unspecified (10) Hypertensive heart disease without heart failure Current visit: No Status: Chronic Category: Medical Code(s): I11.9 - Hypertensive heart disease without heart failure (11) detention 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 Current visit: No Status: Chronic Category: Medical Code(s): Z79.01 - detention (current) use of 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 (12) Obesity (BMI 30.0-34.9) Current visit: No Status: Chronic Category: Medical Code(s): E66.9 - Obesity, unspecified (13) Peripheral arterial occlusive disease Current visit: No Status: Chronic Category: Medical Code(s): I77.9 - Disorder of arteries and arterioles, unspecified (14) Type 2 diabetes mellitus with diabetic neuropathy, with long-term current use of insulin Current visit: No Status: Chronic Category: Medical Code(s): E11.40 - Type 2 diabetes mellitus with diabetic neuropathy, unspecified; 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 coli UTI Current visit: Yes Status: Acute Category: Medical Code(s): N39.0 - Urinary tract infection, site not specified; B96.20 - Unspecified Escherichia coli [E. coli] as the cause of diseases classified elsewhere (17) C. difficile colitis Current visit: Yes Status: Acute Category: Medical Code(s): A04.72 - Enterocolitis due to Clostridium difficile, not specified as recurrent (18) Ischemic ulcer of toe of right foot Start date: 07/30/19 Current visit: Yes Status: Acute Category: Medical Code(s): L97.519 - Non- pressure chronic ulcer of other part of right foot with unspecified severity (19) Amputation of right great toe Current visit: Yes Status: Acute Category: Medical Code(s): S98.111A - Complete traumatic amputation of right great toe, initial encounter (20) Amputation of toe of right foot Current visit: Yes Status: Acute Category: Medical Code(s): S98.131A - Complete traumatic amputation of one right lesser toe, initial encounter - Assessment and plan all Dx Assessment and Plan for all problems:: Continue with antibiotics. Patient states the plan is for her to go to [facility] for brief rehab and completion of antibiotics. Blood sugars remains elevated although better. Will decrease diabetic diet to 1500 daria and increase Levemir <Shawn Alva - Last Filed: 08/01/19 08:37> Internal Medicine - PN: Subj *Date: 08/01/19 *Time: 08:36 Exam Vital signs and Labs for Last 24 Hours: Temp Pulse Resp BP Pulse Ox 98.2 F 77 18 142/44 H 95 08/01/19 08:00 08/01/19 08:00 08/01/19 08:00 08/01/19 08:00 08/01/19 08:00 Laboratory Results - last 24 hr 07/31/19 11:35: POC Glucose 225 H 07/31/19 16:38: POC Glucose 355 H* 08/01/19 05:52: POC Glucose 250 H 08/01/19 06:07: WBC 13.6 H, RBC 3.40 L, Hgb 8.8 L, Hct 28.8 L, MCV 84.5, MCH 26.0 L, MCHC 30.8 L, RDW 16.7, Plt Count 610 H, MPV 8.5, Neut % (Auto) 71.7, Lymph % (Auto) 21.0, [place] % (Auto) 7.1, Eos % (Auto) 0.1, Baso % (Auto) 0.2, Neut # (Auto) 9.7 H, Lymph # (Auto) 2.9, [place] # (Auto) 1.0, Eos # (Auto) 0.0, Baso # (Auto) 0.0 08/01/19 06:07: PT 15.0 H, INR 1.47 H 08/01/19 06:07: Sodium 136 L, Potassium 4.7, Chloride 100, Carbon Dioxide 29, Anion Gap 11.7, BUN 43 H, Creatinine 1.16 H, Estimated Creat Clear 67, Estimated GFR 49 L, Est GFR ( Amer) 60, Glucose 245 H, Calcium 8.7 I & O for Last 24 hours: Intake & Output 07/29/19 07/30/19 07/31/19 08/01/19 23:59 23:59 23:59 23:59 Intake Total 1380 / 1380 1438 / 1438 910 / 910 100 / 100 Output Total 301 / 301 550 / 550 600 / 600 Balance 1079 / 1079 888 / 888 310 / 310 100 / 100 Weight 169 lb 15.975 oz 117 lb 6 oz 162 lb 4 oz 164 lb 9 oz Microbiology Reports for the Last 24 Hours: Microbiology 07/30/19 13:57 Foot,Right - Right Gram Stain - Final 07/30/19 13:57 Foot,Right - Right Surgical Biopsy Culture - Preliminary NO GROWTH AFTER 24 HOURS 07/30/19 13:57 Toe,Second Right Gram Stain - Final 07/30/19 13:57 Toe,Second Right Surgical Biopsy Culture - Preliminary NO GROWTH AFTER 24 HOURS 07/30/19 09:05 Toe,Right Fourth Gram Stain - Final 07/30/19 09:05 Toe,Right Fourth Wound Culture - Preliminary NO GROWTH AFTER 24 HOURS Assessment and Plan (1) Arteritis Current visit: Yes Status: Acute Category: Medical Code(s): I77.6 - Arteritis, unspecified (2) Arterial insufficiency of lower extremity Current visit: No Status: Acute Category: Medical Code(s): I73.9 - Peripheral vascular disease, unspecified (3) History of amputation of lesser toe of right foot Current visit: No Status: Chronic Category: Surgical Code(s): Z89.421 - Acquired absence of other right toe(s) (4) Coronary arteriosclerosis Current visit: No Status: Chronic Category: Medical Code(s): I25.10 - Atherosclerotic heart disease of [place] coronary artery without angina pectoris (5) Diabetes mellitus Current visit: No Status: Chronic Qualifiers: Diabetes mellitus type: type 2 Diabetes mellitus snf insulin use: without snf use Diabetes mellitus complication status: with neurologic complications Diabetes mellitus complication detail: with polyneuropathy Qualified Code(s): E11.42 - Type 2 diabetes mellitus with diabetic polyneuropathy Category: Medical Code(s): E11.9 - Type 2 diabetes mellitus without complications (6) Hemiparesis affecting left side as late effect of cerebrovascular accident Current visit: No Status: Chronic Category: Medical Code(s): I69.354 - Hemiplegia and hemiparesis following cerebral infarction affecting left non- dominant side (7) History of CVA (cerebrovascular accident) Current visit: No Status: Chronic Category: Medical Code(s): Z86.73 - Personal history of transient ischemic attack (TIA), and cerebral infarction without residual deficits (8) History of left below knee amputation Current visit: No Status: Chronic Category: Medical Code(s): Z89.512 - Acquired absence of left leg below knee (9) Hyperlipidemia Current visit: No Status: Chronic Qualifiers: Hyperlipidemia type: unspecified Qualified Code(s): E78.5 - Hyperlipidemia, unspecified Category: Medical Code(s): E78.5 - Hyperlipidemia, unspecified (10) Hypertensive heart disease without heart failure Current visit: No Status: Chronic Category: Medical Code(s): I11.9 - Hypertensive heart disease without heart failure (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: No Status: Chronic Category: Medical Code(s): Z79.01 - detention (current) use of 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 (12) Obesity (BMI 30.0-34.9) Current visit: No Status: Chronic Category: Medical Code(s): E66.9 - Obesity, unspecified (13) Peripheral arterial occlusive disease Current visit: No Status: Chronic Category: Medical Code(s): I77.9 - Disorder of arteries and arterioles, unspecified (14) Type 2 diabetes mellitus with diabetic neuropathy, with long-term current use of insulin Current visit: No Status: Chronic Category: Medical Code(s): E11.40 - Type 2 diabetes mellitus with diabetic neuropathy, unspecified; Z79.4 - detention (current) use of insulin (15) Urine culture positive Current visit: Yes Status: Acute Category: Medical Code(s): R82.79 - Other abnormal findings on microbiological examination of urine (16) E. coli UTI Current visit: Yes Status: Acute Category: Medical Code(s): N39.0 - Urinary tract infection, site not specified; B96.20 - Unspecified Escherichia coli [E. coli] as the cause of diseases classified elsewhere (17) C. difficile colitis Current visit: Yes Status: Acute Category: Medical Code(s): A04.72 - Enterocolitis due to Clostridium difficile, not specified as recurrent (18) Ischemic ulcer of toe of right foot Start date: 07/30/19 Current visit: Yes Status: Acute Category: Medical Code(s): L97.519 - Non- pressure chronic ulcer of other part of right foot with unspecified severity (19) Amputation of right great toe Current visit: Yes Status: Acute Category: Medical Code(s): S98.111A - Complete traumatic amputation of right great toe, initial encounter (20) Amputation of toe of right foot Current visit: Yes Status: Acute Category: Medical Code(s): S98.131A - Complete traumatic amputation of one right lesser toe, initial encounter - Assessment and plan all Dx Assessment and Plan for all problems:: Saw patient, agree with above note, awaiting culture report from samples taken 2 days ago.
[2019-08-02 07:36] LABS: INR 1.77 (0.9-1.1); Prothrombin Time 17.9 seconds (9.4-11.8)
--- NOTE | 2019-08-02 08:35 | Progress Note ---
<Irina Gil - Last Filed: 08/02/19 08:32> Internal Medicine - PN: Subj *Date: 08/02/19 *Time: 08:32 Interval history: Patient states she is feeling well this morning. She denies any pain. She states she slept well last night and ate a good breakfast this morning. Dr. Calloway did see the patient and change the dressing on her foot today. Exam Vital signs and Labs for Last 24 Hours: Temp Pulse Resp BP Pulse Ox 97.9 F 74 18 128/74 96 08/02/19 08:00 08/02/19 08:00 08/02/19 08:00 08/02/19 08:00 08/02/19 08:00 Laboratory Results - last 24 hr 08/01/19 11:24: POC Glucose 280 H 08/01/19 16:34: POC Glucose 420 H* 08/01/19 19:58: POC Glucose 338 H* 08/02/19 06:05: POC Glucose 251 H 08/02/19 07:12: PT 17.9 H, INR 1.77 H I & O for Last 24 hours: Intake & Output 07/30/19 07/31/19 08/01/19 08/02/19 11:59 11:59 11:59 11:59 Intake Total 1118 / 1118 1460 / 1460 1490 / 1490 560 / 560 Output Total 550 / 550 600 / 600 2100 / 2100 Balance 568 / 568 860 / 860 1490 / 1490 -1540 / -1540 Weight 117 lb 6 oz 162 lb 4 oz 164 lb 9 oz 167 lb 3 oz Microbiology Reports for the Last 24 Hours: Microbiology 07/30/19 13:57 Foot,Right - Right Gram Stain - Final 07/30/19 13:57 Foot,Right - Right Surgical Biopsy Culture - Preliminary NO GROWTH AFTER 48 HOURS 07/30/19 13:57 Toe,Second Right Gram Stain - Final 07/30/19 13:57 Toe,Second Right Surgical Biopsy Culture - Preliminary 07/30/19 09:05 Toe,Right Fourth Gram Stain - Final 07/30/19 09:05 Toe,Right Fourth Wound Culture - Preliminary - Constitutional no acute distress - *Routine Respiratory Exam Present: CTA bilaterally - *Routine Cardiovascular Exam Present: RRR - *Routine Abdominal Exam Present: soft, normoactive bowel sounds. Absent: tenderness - *Routine Extremities Exam Absent: cyanosis, clubbing, edema Comments: right foot with dressing in place - *Routine Skin Exam Present: warm. Absent: rash - *Routine Neurological Exam Present: alert, oriented X3 Assessment and Plan (1) Arteritis Current visit: Yes Status: Acute Category: Medical Code(s): I77.6 - Arteritis, unspecified (2) Arterial insufficiency of lower extremity Current visit: No Status: Acute Category: Medical Code(s): I73.9 - Peripheral vascular disease, unspecified (3) History of amputation of lesser toe of right foot Current visit: No Status: Chronic Category: Surgical Code(s): Z89.421 - Acquired absence of other right toe(s) (4) Coronary arteriosclerosis Current visit: No Status: Chronic Category: Medical Code(s): I25.10 - Atherosclerotic heart disease of [place] coronary artery without angina pectoris (5) Diabetes mellitus Current visit: No Status: Chronic Qualifiers: Diabetes mellitus type: type 2 Diabetes mellitus chcf insulin use: 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 Diabetes mellitus complication status: with neurologic complications Diabetes mellitus complication detail: with polyneuropathy Qualified Code(s): E11.42 - Type 2 diabetes mellitus with diabetic polyneuropathy Category: Medical Code(s): E11.9 - Type 2 diabetes mellitus without complications (6) Hemiparesis affecting left side as late effect of cerebrovascular accident Current visit: No Status: Chronic Category: Medical Code(s): I69.354 - Hemiplegia and hemiparesis following cerebral infarction affecting left non- dominant side (7) History of CVA (cerebrovascular accident) Current visit: No Status: Chronic Category: Medical Code(s): Z86.73 - Personal history of transient ischemic attack (TIA), and cerebral infarction without residual deficits (8) History of left below knee amputation Current visit: No Status: Chronic Category: Medical Code(s): Z89.512 - Acquired absence of left leg below knee (9) Hyperlipidemia Current visit: No Status: Chronic Qualifiers: Hyperlipidemia type: unspecified Qualified Code(s): E78.5 - Hyperlipidemia, unspecified Category: Medical Code(s): E78.5 - Hyperlipidemia, unspecified (10) Hypertensive heart disease without heart failure Current visit: No Status: Chronic Category: Medical Code(s): I11.9 - Hypertensive heart disease without heart failure (11) group home 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 Current visit: No Status: Chronic Category: Medical Code(s): Z79.01 - group home (current) use of 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 (12) Obesity (BMI 30.0-34.9) Current visit: No Status: Chronic Category: Medical Code(s): E66.9 - Obesity, unspecified (13) Peripheral arterial occlusive disease Current visit: No Status: Chronic Category: Medical Code(s): I77.9 - Disorder of arteries and arterioles, unspecified (14) Type 2 diabetes mellitus with diabetic neuropathy, with long-term current use of insulin Current visit: No Status: Chronic Category: Medical Code(s): E11.40 - Type 2 diabetes mellitus with diabetic neuropathy, unspecified; Z79.4 - group home (current) use of insulin (15) Urine culture positive Current visit: Yes Status: Acute Category: Medical Code(s): R82.79 - Other abnormal findings on microbiological examination of urine (16) E. coli UTI Current visit: Yes Status: Acute Category: Medical Code(s): N39.0 - Urinary tract infection, site not specified; B96.20 - Unspecified Escherichia coli [E. coli] as the cause of diseases classified elsewhere (17) C. difficile colitis Current visit: Yes Status: Acute Category: Medical Code(s): A04.72 - Enterocolitis due to Clostridium difficile, not specified as recurrent (18) Ischemic ulcer of toe of right foot Start date: 07/30/19 Current visit: Yes Status: Acute Category: Medical Code(s): L97.519 - Non- pressure chronic ulcer of other part of right foot with unspecified severity (19) Amputation of right great toe Current visit: Yes Status: Acute Category: Medical Code(s): S98.111A - Complete traumatic amputation of right great toe, initial encounter (20) Amputation of toe of right foot Current visit: Yes Status: Acute Category: Medical Code(s): S98.131A - Complete traumatic amputation of one right lesser toe, initial encounter - Assessment and plan all Dx Assessment and Plan for all problems:: Patient can possibly be discharged to [facility] today for rehab. Will discuss with Dr. Alva. <Shawn Alva - Last Filed: 08/02/19 08:51> Internal Medicine - PN: Subj *Date: 08/02/19 *Time: 08:51 Exam Vital signs and Labs for Last 24 Hours: Temp Pulse Resp BP Pulse Ox 97.9 F 74 18 128/74 96 08/02/19 08:00 08/02/19 08:00 08/02/19 08:00 08/02/19 08:00 08/02/19 08:00 Laboratory Results - last 24 hr 08/01/19 11:24: POC Glucose 280 H 08/01/19 16:34: POC Glucose 420 H* 08/01/19 19:58: POC Glucose 338 H* 08/02/19 06:05: POC Glucose 251 H 08/02/19 07:12: PT 17.9 H, INR 1.77 H I & O for Last 24 hours: Intake & Output 07/30/19 07/31/19 08/01/19 08/02/19 23:59 23:59 23:59 23:59 Intake Total 1438 / 1438 910 / 910 1490 / 1600 210 / 210 Output Total 550 / 550 600 / 600 2100 / 2100 Balance 888 / 888 310 / 310 -610 / -500 210 / 210 Weight 117 lb 6 oz 162 lb 4 oz 164 lb 9 oz 167 lb 3 oz Microbiology Reports for the Last 24 Hours: Microbiology 07/30/19 13:57 Foot,Right - Right Gram Stain - Final 07/30/19 13:57 Foot,Right - Right Surgical Biopsy Culture - Preliminary NO GROWTH AFTER 48 HOURS 07/30/19 13:57 Toe,Second Right Gram Stain - Final 07/30/19 13:57 Toe,Second Right Surgical Biopsy Culture - Preliminary 07/30/19 09:05 Toe,Right Fourth Gram Stain - Final 07/30/19 09:05 Toe,Right Fourth Wound Culture - Preliminary Assessment and Plan (1) Arteritis Current visit: Yes Status: Acute Category: Medical Code(s): I77.6 - Arteritis, unspecified (2) Arterial insufficiency of lower extremity Current visit: No Status: Acute Category: Medical Code(s): I73.9 - Peripheral vascular disease, unspecified (3) History of amputation of lesser toe of right foot Current visit: No Status: Chronic Category: Surgical Code(s): Z89.421 - Acquired absence of other right toe(s) (4) Coronary arteriosclerosis Current visit: No Status: Chronic Category: Medical Code(s): I25.10 - Atherosclerotic heart disease of [place] coronary artery without angina pectoris (5) Diabetes mellitus Current visit: No Status: Chronic Qualifiers: Diabetes mellitus type: type 2 Diabetes mellitus chcf insulin use: without chcf use Diabetes mellitus complication status: with neurologic complications Diabetes mellitus complication detail: with polyneuropathy Qualified Code(s): E11.42 - Type 2 diabetes mellitus with diabetic polyneuropathy Category: Medical Code(s): E11.9 - Type 2 diabetes mellitus without complications (6) Hemiparesis affecting left side as late effect of cerebrovascular accident Current visit: No Status: Chronic Category: Medical Code(s): I69.354 - Hemiplegia and hemiparesis following cerebral infarction affecting left non- dominant side (7) History of CVA (cerebrovascular accident) Current visit: No Status: Chronic Category: Medical Code(s): Z86.73 - Personal history of transient ischemic attack (TIA), and cerebral infarction without residual deficits (8) History of left below knee amputation Current visit: No Status: Chronic Category: Medical Code(s): Z89.512 - Acquired absence of left leg below knee (9) Hyperlipidemia Current visit: No Status: Chronic Qualifiers: Hyperlipidemia type: unspecified Qualified Code(s): E78.5 - Hyperlipidemia, unspecified Category: Medical Code(s): E78.5 - Hyperlipidemia, unspecified (10) Hypertensive heart disease without heart failure Current visit: No Status: Chronic Category: Medical Code(s): I11.9 - Hypertensive heart disease without heart failure (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 Current visit: No Status: Chronic Category: Medical Code(s): Z79.01 - group home (current) use of 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 (12) Obesity (BMI 30.0-34.9) Current visit: No Status: Chronic Category: Medical Code(s): E66.9 - Obesity, unspecified (13) Peripheral arterial occlusive disease Current visit: No Status: Chronic Category: Medical Code(s): I77.9 - Disorder of arteries and arterioles, unspecified (14) Type 2 diabetes mellitus with diabetic neuropathy, with long-term current use of insulin Current visit: No Status: Chronic Category: Medical Code(s): E11.40 - Type 2 diabetes mellitus with diabetic neuropathy, unspecified; Z79.4 - group home (current) use of insulin (15) Urine culture positive Current visit: Yes Status: Acute Category: Medical Code(s): R82.79 - Other abnormal findings on microbiological examination of urine (16) E. coli UTI Current visit: Yes Status: Acute Category: Medical Code(s): N39.0 - Urinary tract infection, site not specified; B96.20 - Unspecified Escherichia coli [E. coli] as the cause of diseases classified elsewhere (17) C. difficile colitis Current visit: Yes Status: Acute Category: Medical Code(s): A04.72 - Enterocolitis due to Clostridium difficile, not specified as recurrent (18) Ischemic ulcer of toe of right foot Start date: 07/30/19 Current visit: Yes Status: Acute Category: Medical Code(s): L97.519 - Non- pressure chronic ulcer of other part of right foot with unspecified severity (19) Amputation of right great toe Current visit: Yes Status: Acute Category: Medical Code(s): S98.111A - Complete traumatic amputation of right great toe, initial encounter (20) Amputation of toe of right foot Current visit: Yes Status: Acute Category: Medical Code(s): S98.131A - Complete traumatic amputation of one right lesser toe, initial encounter - Assessment and plan all Dx Assessment and Plan for all problems:: Saw patient, agree with above note.
--- NOTE | 2019-08-02 08:46 | Progress Note ---
Subjective Date: 08/02/19 Time: 07:55 Principal diagnosis: Right ischemic toes, gangrene, cellulitis Interval history: Ms. Nieto underwent surgical intervention 04/08 for right foot cellulitis, gangrene with ischemic toes. She reports no pain today. She is resting comfortably in bed eating breakfast. She denies new or worsening nausea, fever/chills, shortness of breath and chest pain. PN: Obj Ex Vital signs: Temp Pulse Resp BP Pulse Ox 97.9 F 74 18 128/74 96 08/02/19 08:00 08/02/19 08:00 08/02/19 08:00 08/02/19 08:00 08/02/19 08:00 - Constitutional no acute distress - Routine HEENT Exam Head: Present: normocephalic - Routine Neck Exam Present: supple - Routine Respiratory Exam Absent: respiratory distress - Routine Extremities Exam Present: edema (improving), pulses intact (weak but palpable to right foot), amputation (right TMA, left BKA) - Routine Skin Exam Present: erythema (right foot improving), dry, wounds (surgical incision with sutures/jeremy clean dry and intact), ecchymosis (right TMA incision site, no new SOI) - Routine Neurological Exam Present: sensory deficit, moving all extremities Progress Note: A&P (1) Arteritis Status: Acute Current Visit: Yes (2) Arterial insufficiency of lower extremity Status: Acute Current Visit: No (3) History of amputation of lesser toe of right foot Status: Chronic Current Visit: No (4) Coronary arteriosclerosis Status: Chronic Current Visit: No (5) Diabetes mellitus Status: Chronic Current Visit: No (6) Hemiparesis affecting left side as late effect of cerebrovascular accident Status: Chronic Current Visit: No (7) History of CVA (cerebrovascular accident) Status: Chronic Current Visit: No (8) History of left below knee amputation Status: Chronic Current Visit: No (9) Hyperlipidemia Status: Chronic Current Visit: No (10) Hypertensive heart disease without heart failure Status: Chronic Current Visit: No (11) alf 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 Status: Chronic Current Visit: No (12) Obesity (BMI 30.0-34.9) Status: Chronic Current Visit: No (13) Peripheral arterial occlusive disease Status: Chronic Current Visit: No (14) Type 2 diabetes mellitus with diabetic neuropathy, with long-term current use of insulin Status: Chronic Current Visit: No (15) Urine culture positive Status: Acute Current Visit: Yes (16) E. coli UTI Status: Acute Current Visit: Yes (17) C. difficile colitis Status: Acute Current Visit: Yes (18) Ischemic ulcer of toe of right foot Status: Acute Current Visit: Yes (19) Amputation of right great toe Status: Acute Current Visit: Yes (20) Amputation of toe of right foot Status: Acute Current Visit: Yes Assessment and Plan for All Diagnoses:: Sx, 07/30/19: S/p Right foot incision and drainage, transmetatarsal amputation (TMA), tendo Achilles lengthening (CASSANDRA) POD #3 Sutures and jeremy are clean, dry and intact to the incision sites with no signs of infection. Xeroform, betadine soaked 4x4s, dry 4x4's, kerlix and Frank bandage were placed to the right foot. Patient is to keep this dressing clean, dry, and intact. She is to continue non weight bearing. Unless for transfers. -Nonweightbearing in fracture boot unless transfers to wheelchair, bedside commode. In which case when she is doing transfers she can be partial weightbearing to the right heel in the fracture boot. -Monitor wound and Intra-Op bone cultures -Foot is stable from a podiatry standpoint -Okay from podiatry standpoint to be discharged to the SNF facility [facility] orders: -Nonweightbearing if unassisted to right lower extremity, bed rest -If up for transfers with assistance (PT, nurse, etc), patient may put some weight to the right heel in the fracture boot only -Recommend continued on going daily physical therapy: gait, balance, strengthening RLE -Maintain dressing and boot clean dry and intact -Hold ice -Continue anti-coagulation therapy -Continue antibiotics -Plan for daily dressing changes: clean incision (dorsal TMA site and posterior ankle) with skin cleaner carpet and upholstery or betadine. Dry. Apply xeroform to incisions with betadine soaked 4x4s, dry 4x4s, kerlix, and Frank. Then fracture boot -Plan to follow up with Podiatry out patient next week
--- NOTE | 2019-08-02 09:50 | Discharge Summary ---
General - General Admission date:: 07/27/19 Discharge date: 08/02/19 HPI HPI: Ms. Nieto is a 53-year-old female with a history of peripheral arterial disease. She was just recently discharged on Tuesday after an admission and vascular stent placement by Dr. Padilla in the right leg. She seemed to be doing well until yesterday when she began having red streaks into her calf and thigh as well as significant pain. Her mother states she was unable to bear any weight on the leg and therefore she was brought to the emergency room for evaluation and treatment. The ER physician spoke with Dr. Padilla and he felt the pain was likely due to where he placed stents and stretched the artery. A bedside ultrasound was done to look for DVT and it was negative. Dr. Padilla recommended giving the patient [place] and sending her home, however the patient's mother stated she was unable to take her home until she could ambulate. She was therefore admitted for pain control and a rehab evaluation. Hospital Course Hospital Course: The patient was admitted and started on pain control and rehab was consulted. She had a chest x-ray showing nothing acute. She was also started on Rocephin empirically for UTI treatment and dexamethasone for the arteritis. She was seen by physical therapy and they felt she was most appropriate for rehab placement. She continued to have a lot of pain in her right leg. She began having diarrhea and a diarrhea panel showed C. difficile colitis. She was therefore started on Flagyl. Her urine culture was positive for E. coli which was sensitive to Rocephin, therefore this was continued. Her diarrhea improved as did her pain. She was able to stand without help but could not walk. Her blood sugars increased, therefore her Levemir dose was increased. Dr. Calloway was consulted to see the patient and she discussed conservative versus surgical treatment options due to the patient's toe ischemia and peripheral arterial disease. She did recommend surgical intervention and the patient was in agreement. She performed a right incision and drainage, right transmetatarsal amputation, and a right tendo Achilles lengthening on 07/30/2019. She had an x-ray of the foot after the amputation which showed transmetatarsal amputation and surgical clips in place. The patient tolerated the procedure well. She felt better and was able to eat without difficulty. Her diarrhea stopped and her white blood cell count decreased. Physical therapy was again consulted to work with the patient on getting out of bed and transferring. Dr. Infante saw the patient and changed the dressings daily after the procedure. She felt she could be discharged to a [facility] facility for rehab. She wanted the patient to be nonweightbearing if unassisted on the right lower extremity with bed rest. If up with transfers, she may bear some weight on the right heel in a fracture boot only. She will also need to remain on antibiotics and anticoagulation therapy. Her plan was to change the dressing every other day and clean the incision with with Betadine and then apply Xeroform to the incisions with Betadine soaked 4 x 4's, dry 4 x 4's, Kerlix, and an Frank. She then felt the fracture boot would need to be placed. The patient will follow-up with Dr. Calloway in 1 week. She was stable to be discharged to the [facility] for short term rehab and completion of her antibi otics. Her blood cultures did show no growth and her wound cultures are still pending. Objective Vital signs: Temp Pulse Resp BP Pulse Ox 97.9 F 74 18 128/74 96 08/02/19 08:00 08/02/19 08:00 08/02/19 08:00 08/02/19 08:00 08/02/19 08:00 Narrative: - Constitutional no acute distress - *Routine HEENT Exam Head: Present: normocephalic Eye: Present: EOMI, PERRL ENT: Present: mucous membranes moist - *Routine Neck Exam Present: supple. Absent: lymphadenopathy - *Routine Respiratory Exam Present: CTA bilaterally - *Routine Cardiovascular Exam Present: RRR - *Routine Abdominal Exam Present: soft, normoactive bowel sounds. Absent: tenderness - *Routine Extremities Exam Absent: cyanosis, clubbing, edema Comments: Left BKA, right leg with some edema - *Routine Skin Exam Present: warm. Absent: rash Comments: Right lower leg is warm to the touch. The great and second toe are black in appearance. This is chronic. She has some erythematous streaking on the right martinez as well as the right calf and the right inner thigh. The right calf is very tender to palpation. - *Routine Neurological Exam Present: alert, oriented X3 Results Labs on day of discharge: Labs from last 24 hours 08/02/19 08/02/19 08/01/19 07:12 06:05 19:58 PT 17.9 H INR 1.77 H POC Glucose 251 H 338 H* 08/01/19 08/01/19 16:34 11:24 PT INR POC Glucose 420 H* 280 H Preliminary micro results at discharge 07/30/19 13:57 Surgical Biopsy Culture - Preliminary Foot,Right - Right NO GROWTH AFTER 48 HOURS 07/30/19 13:57 Surgical Biopsy Culture - Preliminary Toe,Second Right 07/30/19 09:05 Wound Culture - Preliminary Toe,Right Fourth DS: Diagnosis - Discharge Diagnosis (1) Arteritis Status: Acute (2) Arterial insufficiency of lower extremity Status: Acute (3) History of amputation of lesser toe of right foot Status: Chronic (4) Coronary arteriosclerosis Status: Chronic (5) Diabetes mellitus Status: Chronic (6) Hemiparesis affecting left side as late effect of cerebrovascular accident Status: Chronic (7) History of CVA (cerebrovascular accident) Status: Chronic (8) History of left below knee amputation Status: Chronic (9) Hyperlipidemia Status: Chronic (10) Hypertensive heart disease without heart failure Status: Chronic (11) 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 coli UTI Status: Acute (17) C. difficile colitis Status: Acute (18) Ischemic ulcer of toe of right foot Status: Acute (19) Amputation of right great toe Status: Acute (20) Amputation of toe of right foot Status: Acute Discharge Plan - Patient Discharge Instructions ACTIVITY: Continue current activity DIET: continue same diet Additional Instructions: Wound care for right foot. Once daily, Xeroform to incision, then betadine soaked 4X4, then dry kerlix and lastly frank wrap. Patient needs a BMP, CBC and PT/INR in 1 week. Patient Instructions: Escherichia coli Infection, DI for Diabetic Foot Ulcer, DI for Urinary Tract Infection (UTI), Clostridium difficile Infection, DI for Clostridium difficile Infection - Follow up Plan Disposition: [facility] Home Medications: Home Medications Medication Instructions Recorded Confirmed Type amiloride 5 mg tablet 10 mg PO DAILY 09/22/17 07/25/19 History aspirin 25 mg-dipyridamole 200 mg 1 cap PO BID 09/22/17 07/25/19 History capsule,ext.release 12 hr multiphase baclofen 10 mg tablet 10 mg PO DAILY 09/22/17 07/25/19 History clopidogrel 75 mg tablet 75 mg PO DAILY 09/22/17 07/25/19 History glimepiride 2 mg tablet 2 mg PO DAILY 09/22/17 07/25/19 History metolazone 5 mg tablet 5 mg PO DAILY 09/22/17 07/25/19 History Baclofen [Lioresal 10mg tablet] 20 mg PO HS 11/20/17 07/25/19 History Citalopram Hydrobromide [Celexa 20 mg PO DAILY 11/20/17 07/25/19 History 20mg Tablet] Donepezil HCl [Aricept 5mg 5 mg PO HS 04/14/18 07/25/19 History Tablet] Potassium Chloride 60 meq PO TID 04/14/18 07/25/19 History Spironolactone [Aldactone 25mg 25 mg PO DAILY 04/14/18 07/25/19 History Tab] Furosemide [Furosemide 40MG tAB] 40 mg PO DAILY 04/15/18 07/25/19 History warfarin 5 mg tablet 5 mg PO SUTUWEFRSA tab 08/17/18 07/25/19 History Linagliptin/Metformin HCl 1 each PO BID 05/09/19 07/25/19 History [Jentadueto 2.5 mg-1000 mg Tab] Metoprolol Tartrate [Lopressor 12.5 mg PO DAILY 05/09/19 07/25/19 History 25mg tablet] Loratadine [Claritin] 10 mg PO DAILY 05/10/19 07/25/19 History Rosuvastatin Calcium [Crestor 20 20 mg PO HS 05/10/19 07/25/19 History mg Tablets] Warfarin Sodium 7.5 mg PO MOTH 05/10/19 07/26/19 History Cholecalciferol (Vitamin D3) 4,000 units PO DAILY 07/23/19 07/25/19 History [Vitamin D3] Insulin Lispro [HumaLOG 100 0 unit SQ DIRECTED 07/23/19 07/25/19 History units/mL 3mL vial (SSI)] Insulin Detemir [Levemir 40 unit SQ BID #0 08/02/19 07/25/19 Rx 100units/mL 3mL flexpen] metroNIDAZOLE [metroNIDAZOLE 500mg 500 mg PO TID #21 tab 08/02/19 Rx Tablet] Prescriptions/Medication Reconciliation: New metroNIDAZOLE [metroNIDAZOLE 500mg Tablet] 500 mg PO TID #21 tab Continued baclofen 10 mg tablet 10 mg PO DAILY amiloride 5 mg tablet 10 mg PO DAILY aspirin 25 mg-dipyridamole 200 mg capsule,ext.release 12 hr multiphase 1 cap PO BID clopidogrel 75 mg tablet 75 mg PO DAILY warfarin 5 mg tablet 5 mg PO SUTUWEFRSA tab metolazone 5 mg tablet 5 mg PO DAILY glimepiride 2 mg tablet 2 mg PO DAILY Citalopram Hydrobromide [Celexa 20mg Tablet] 20 mg PO DAILY Spironolactone [Aldactone 25mg Tab] 25 mg PO DAILY Potassium Chloride 60 meq PO TID Donepezil HCl [Aricept 5mg Tablet] 5 mg PO HS Metoprolol Tartrate [Lopressor 25mg tablet] 12.5 mg PO DAILY Loratadine [Claritin] 10 mg PO DAILY Warfarin Sodium 7.5 mg PO MOTH Insulin Lispro [HumaLOG 100 units/mL 3mL vial (SSI)] 0 unit SQ DIRECTED Baclofen [Lioresal 10mg tablet] 20 mg PO HS Furosemide [Furosemide 40MG tAB] 40 mg PO DAILY Linagliptin/Metformin HCl [Jentadueto 2.5 mg-1000 mg Tab] 1 each PO BID Rosuvastatin Calcium [Crestor 20 mg Tablets] 20 mg PO HS Cholecalciferol (Vitamin D3) [Vitamin D3] 4,000 units PO DAILY Changed Insulin Detemir [Levemir 100units/mL 3mL flexpen] 40 unit SQ BID #0 - Problem Reconciliation Problems Reviewed?: Yes
== END 2019-08-02 12:16 | DRG 240 ==
LOC: OB 16:37 → ER 16:37 → OB 19:44 → 2ND 07-27 16:32
PROVIDERS: ADMIT Family Medicine; ATTEND Family Medicine
CPT/HCPCS: 36415; 71010; 71045; 73620; 73630; 76000; 80048; 80053; 81001; 82962; 83605; 84484; 85025; 85610; 85651; 85730; 86140; 87040; 87070; 87077; 87086; 87088; 87186; 87205; 87275; 87276; 87507; 88305; 88311; 93005; 96365; 97161; 97163; 97530; 99285; G0378; J2405

== ENCOUNTER 2019-08-08 12:46 | Outpatient (CLI) | payer MEDICARE, MEDICAID, SELFPAY ==
[2019-08-08 12:54] VITALS: BMI 32.2
[2019-08-08 13:25] LABS: Chloride 93 mmol/L (98-107)
[2019-08-08 13:26] LABS: Potassium 3.7 mmoL/L (3.5-5.1); Sodium 135 mmol/L (136-145)
[2019-08-08 13:29] LABS: Anion Gap 17.7 mEq/L (5-15); Blood Urea Nitrogen 23 mg/dl (7-17); Carbon Dioxide 28 mmol/L (22.0-30.0); Creatinine Clearance Estimated 79 mL/min (50-200); Estimated Glomerular Filt Rate 58 ml/min (>60); GFR (African American) 71 ML/MIN (>60); Glucose 230 mg/dl (74-100)
[2019-08-08 13:33] LABS: Basophils % 0.2 % (0.1-2.0); Eosinophils # 0.1 K/mm3 (0.0-0.4); Eosinophils % 0.5 % (0.1-12.0); Hematocrit 28.8 % (37.0-47.0); Hemoglobin 8.8 g/dL (12.2-16.2); Lymphocytes # 2.4 K/mm3 (0.7-4.5); Mean Corpuscular HGB Conc 30.4 g/dL (31.8-35.4); Mean Corpuscular Hemoglobin 25.4 pg (27.0-31.2); Mean Corpuscular Volume 83.4 fl (81-99); Mean Platelet Volume 8.1 fl (7.4-10.4); Monocytes # 0.9 K/mm3 (0.1-1.0); Monocytes % 6.5 % (1.7-9.3); Neutrophils # 10.5 K/mm3 (1.8-7.8); Neutrophils % 75.7 % (37.0-80.0); Platelet Count 488 K/mm3 (142-424); Red Blood Count 3.45 M/mm3 (4.20-5.40); White Blood Count 13.8 K/mm3 (4.8-10.8)
--- NOTE | 2019-08-08 13:55 | XR_ITS ---
PROCEDURE: XR CHEST PORTABLE CLINICAL HISTORY: picc placement COMPARISON: CXR1VP XR chest portable from 12/22/2017 CXR2V XR chest 2V from 04/14/2018 XR CHEST PORTABLE from 07/25/2019 FINDINGS: The cardiomediastinal silhouette and pulmonary vascularity are within normal limits. The lungs are clear without infiltrates, suspicious nodules, or pleural effusions. No acute bony abnormalities. Sclerotic lesion in the proximal right humerus is likely a bone infarct or benign enchondroma. Metastatic lesion is felt to be less likely. Right upper extremity PICC line is noted with the distal tip projecting within the superior vena cava. There is no pneumothorax. IMPRESSION: No acute findings. PICC line tip in superior vena cava. Dictated by: Nomi Serra 08/08/2019 14:14 Electronically signed by Nomi Serra in [facility] 08/08/2019 14:14
--- NOTE | 2019-08-08 13:55 | PC.NURSE ---
1355-GLENDA LOPEZ FINISHED INSERTING PICC LINE IN RIGHT UPPER ARM; CALLED FOR STAT PORTABLE CHEST X-RAY FOR PLACEMENT CONFIRMATION
--- NOTE | 2019-08-08 14:00 | PC.NURSE ---
1400-XRAY HERE TO SHOOT PORTABLE CHEST XRAY FOR PICC PLACEMENT
--- NOTE | 2019-08-08 14:14 | PC.NURSE ---
1414-SPOKE WITH RADIOLOGIST STATED PICC WAS IN THE SUPERIOR VENA CAVA; PICC OK TO USE.
[2019-08-08 14:25] VITALS: BP 126/82; PULSE 96; RESP 18; O2SAT 96
[2019-08-08 14:55] VITALS: BP 119/62; PULSE 89; RESP 18
[2019-08-08 15:25] VITALS: BP 101/64; PULSE 88; RESP 18
[2019-08-08 15:55] VITALS: BP 118/66; PULSE 88; RESP 18
--- NOTE | 2019-08-08 15:57 | PC.NURSE ---
1557-GAVE REPORT TO GLENDA KEMP AT [facility].
[2019-08-08 16:45] VITALS: BP 106/52; PULSE 52; RESP 18
== END 2019-08-08 16:45 | disposition home or self-care (01) ==
LOC: INF 12:46
PROVIDERS: Visit Provider Family Medicine
DX: M86.9 Osteomyelitis, unspecified (principal)
CPT/HCPCS: 36415; 36569; 71045; 80048; 85025; 96365; 96366; C1751; J3370

== ENCOUNTER → 2019-08-13 11:49 | Outpatient (CLI) | payer MEDICARE, MEDICAID, SELFPAY ==
[2019-08-13 12:51] LABS: Vancomycin,Trough 16.4 ug/mL (5.0-10.0)
== END ==
PROVIDERS: Visit Provider Family Medicine
DX: Z51.81 Encounter for therapeutic drug level monitoring (principal)
CPT/HCPCS: 80202

== ENCOUNTER 2019-08-14 15:44 | Inpatient (IN) ==
--- NOTE | 2019-08-14 16:16 | Progress Note ---
Internal Medicine - PN: Subj *Date: 08/14/19 *Time: 16:13 Interval history: Patient presented to office of [facility] after being seen in the [facility] podiatry clinic today. Patient was noted to be lethargic and have low BP and HR. Patient was seen in the [facility] ER last night for similar symptoms as well as a low grade fever around 100. She was found to be anemic at that time with an elevated Lactic acid level. She was given IV fluids and discharged back to the 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. She currently has a PICC line and is being treated with Vancomycin due to wound/bone infection from recent partial right foot amputation. Hemoglobin from outside was was 7.0 today. Exam Vital signs and Labs for Last 24 Hours: Office vital signs today: Temp 97.9, BP 90/56, HR 44 - Constitutional no acute distress (but lethargic, has trouble folllowing commands, sitting in a wheelchair) - *Routine HEENT Exam Head: Present: normocephalic Eye: Present: EOMI, PERRL ENT: Present: mucous membranes moist - *Routine Neck Exam Present: supple. Absent: lymphadenopathy - *Routine Respiratory Exam Present: CTA bilaterally - *Routine Cardiovascular Exam Present: RRR, bradycardia - *Routine Abdominal Exam Present: soft, normoactive bowel sounds, tenderness (to deep palpation), obese - *Routine Extremities Exam Absent: cyanosis, clubbing, edema Comments: left leg BKA, right leg with dressing over recent partial foot amputation - *Routine Skin Exam Present: warm. Absent: rash Comments: PICC line in place - *Routine Neurological Exam Present: altered mental status (seems tired) Assessment and Plan (1) Lethargic Current visit: Yes Status: Acute Category: Medical Code(s): R53.83 - Other fatigue (2) Bradycardia Current visit: Yes Status: Acute Category: Medical Code(s): R00.1 - Bradycardia, unspecified (3) Elevated lactic acid level Current visit: Yes Status: Acute Category: Medical Code(s): R79.89 - Other specified abnormal findings of blood chemistry (4) Arterial insufficiency of lower extremity Current visit: No Status: Acute Category: Medical Code(s): I73.9 - Peripheral vascular disease, unspecified (5) Hypotension Current visit: No Status: Acute Qualifiers: Hypotension type: unspecified hypotension type Qualified Code(s): I95.9 - Hypotension, unspecified Category: Medical Code(s): I95.9 - Hypotension, unspecified (6) Anemia Current visit: No Status: Chronic Qualifiers: Anemia type: unspecified type Qualified Code(s): D64.9 - Anemia, unspecified Category: Medical Code(s): D64.9 - Anemia, unspecified (7) Coronary arteriosclerosis Current visit: No Status: Chronic Category: Medical Code(s): I25.10 - Atherosclerotic heart disease of resighini coronary artery without angina pectoris (8) Diabetes mellitus Current visit: No Status: Chronic Qualifiers: Diabetes mellitus type: type 2 Diabetes mellitus halfway insulin use: without superintendent container 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 Diabetes mellitus complication status: with neurologic complications Diabetes mellitus complication detail: with polyneuropathy Qualified Code(s): E11.42 - Type 2 diabetes mellitus with diabetic polyneuropathy Category: Medical Code(s): E11.9 - Type 2 diabetes mellitus without complications (9) Hemiparesis affecting left side as late effect of cerebrovascular accident Current visit: No Status: Chronic Category: Medical Code(s): I69.354 - Hemiplegia and hemiparesis following cerebral infarction affecting left non- dominant side (10) History of CVA (cerebrovascular accident) Current visit: No Status: Chronic Category: Medical Code(s): Z86.73 - Personal history of transient ischemic attack (TIA), and cerebral infarction without residual deficits (11) History of left below knee amputation Current visit: No Status: Chronic Category: Medical Code(s): Z89.512 - Acquired absence of left leg below knee (12) Hypertensive heart disease without heart failure Current visit: No Status: Chronic Category: Medical Code(s): I11.9 - Hypertensive heart disease without heart failure (13) Left spastic hemiparesis Current visit: No Status: Chronic Category: Medical Code(s): G81.14 - Spastic hemiplegia affecting left nondominant side (14) 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 She needs a transfusion of PRBCs, will add Cefepime and Gent due to possible sepsis, check blood cultures.
--- NOTE | 2019-08-14 17:01 | Sepsis Event Note ---
[facility] Tissue Perfusion Eval Sepsis Re-Evaluation Performed: Yes Date Performed: 08/14/19 Time Performed: 17:01
[2019-08-14 17:08] LABS: Basophils % 0.2 % (0.1-2.0); Eosinophils # 0.2 K/mm3 (0.0-0.4); Eosinophils % 2.5 % (0.1-12.0); Lymphocytes % 23.6 % (10-50); Mean Corpuscular HGB Conc 30.6 g/dL (31.8-35.4); Mean Corpuscular Volume 82.5 fl (81-99); Monocytes # 0.5 K/mm3 (0.1-1.0); Monocytes % 5.8 % (1.7-9.3); Neutrophils # 5.6 K/mm3 (1.8-7.8); Neutrophils % 67.8 % (37.0-80.0); Platelet Count 283 K/mm3 (142-424); Red Blood Count 2.67 M/mm3 (4.20-5.40); Red Cell Distribution Width 17.1 % (11.5-17.5); White Blood Count 8.3 K/mm3 (4.8-10.8)
[2019-08-14 17:15] LABS: INR 1.4 (0.9-1.1); Prothrombin Time 14.3 seconds (9.4-11.8)
[2019-08-14 17:16] LABS: Alanine Aminotransferase 28 U/L (12-78); Albumin Level 3.1 g/dl (3.5-5.0); Albumin/Globulin Ratio 0.9 (1.1-1.8); Alkaline Phosphatase 62 U/L (38-126); Anion Gap 11.5 mEq/L (5-15); Aspartate Amino Transferase 29 U/L (14-36); Blood Urea Nitrogen 16 mg/dl (7-17); Calcium 8.6 mg/dl (8.4-10.2); Carbon Dioxide 26 mmol/L (22.0-30.0); Chloride 103 mmol/L (98-107); Globulin 3.5 g/dL (1.3-3.2); Glucose 94 mg/dl (74-100); Phosphorous 3.6 mg/dl (2.5-4.5); Sodium 136 mmol/L (136-145); Total Protein,Serum 6.6 g/dl (6.3-8.2)
[2019-08-14 17:18] LABS: Bilirubin,Total < 0.1 mg/dl (0.2-1.3)
[2019-08-14 17:26] LABS: ABG Base Excess 0.2 mmol/L (-2.4-2.3); ABG HCO3 23.6 mmhg (22.0-26.0); ABG Oxygen Saturation 95 % (90-100); ABG PCO2 31.8 mmhg (35.0-45.0); ABG PH 7.49 mmol/L (7.35-7.45); ABG PO2 79.3 mmhg (80-100); ABG TCO2 24.6 mmhg (23-27)
[2019-08-14 17:28] LABS: Oxygen 21 %
[2019-08-14 17:33] LABS: Hemoglobin 6.6 g/dL (12.2-16.2)
[2019-08-15 03:33] LABS: Hematocrit 31.3 % (37.0-47.0)
[2019-08-15 05:10] LABS: Basophils % 0.4 % (0.1-2.0); Eosinophils # 0.2 K/mm3 (0.0-0.4); Hematocrit 31.8 % (37.0-47.0); Hemoglobin 10.1 g/dL (12.2-16.2); Lymphocytes # 1.2 K/mm3 (0.7-4.5); Lymphocytes % 14.3 % (10-50); Mean Corpuscular HGB Conc 31.8 g/dL (31.8-35.4); Mean Corpuscular Volume 80.9 fl (81-99); Mean Platelet Volume 8.1 fl (7.4-10.4); Monocytes # 0.5 K/mm3 (0.1-1.0); Monocytes % 5.3 % (1.7-9.3); Neutrophils # 6.6 K/mm3 (1.8-7.8); Neutrophils % 78.1 % (37.0-80.0); Platelet Count 233 K/mm3 (142-424); Red Blood Count 3.93 M/mm3 (4.20-5.40); Red Cell Distribution Width 16.8 % (11.5-17.5); White Blood Count 8.4 K/mm3 (4.8-10.8)
[2019-08-15 06:03] LABS: Anion Gap 11.9 mEq/L (5-15); Calcium 8.1 mg/dl (8.4-10.2)
--- NOTE | 2019-08-15 07:46 | Pharmacy Consult Notes ---
[facility] Pharmacy VTE Monitoring - Patient Demographics Admission date: 08/14/19 Report Date: 08/15/19 Time: 07:45 Allergies/Adverse Reactions: Patient Allergies azithromycin Allergy (Intermediate, Verified 08/07/19 13:15) S-DIFF. BREATHING daptomycin [DAPTOMYCIN] Allergy (Intermediate, Verified 08/07/19 13:15) I-RASH/ITCHING levofloxacin Allergy (Intermediate, Verified 08/07/19 13:15) I-RASH Penicillins Allergy (Intermediate, Verified 08/07/19 13:15) I-HIVES Height: 1.52 m Weight: 79.946 kg Patient Problems: Current Active Problems Lethargic (Acute) Bradycardia (Acute) Elevated lactic acid level (Acute) - VTE Risk Labs: VTE Related Lab Results Hgb 10.1 g/dL (12.2-16.2) L 08/15/19 04:58 Hct 31.8 % (37.0-47.0) L 08/15/19 04:58 Plt Count 233 K/mm3 (142-424) 08/15/19 04:58 PT 14.3 seconds (9.4-11.8) H 08/14/19 16:35 INR 1.40 (0.9-1.1) H 08/14/19 16:35 BUN 12 mg/dl (7-17) 08/15/19 04:58 Creatinine 0.80 mg/dl (0.52-1.04) D 08/15/19 04:58 Estimated Creat Clear 105 mL/min (50-200) 08/15/19 04:58 VTE Score: 4 VTE Risk Level: Low Risk - Prophylaxis VTE Prophylaxis Ordered?: Yes Types of VTE Prophylaxis: TEDS Knee High Location of Applied Device: Bilateral Lower Extremeties
--- NOTE | 2019-08-15 07:49 | History & Physical Report ---
*Admission Date: 08/14/19 <Keisha Pedersen - 08/15/19 08:08> *Chief complaint: AMS; anemia; bradycardic <Keisha Pedersen - 08/15/19 08:08> *History of present illness: Prema is a 53-year-old female who presented to the office of [facility] yesterday after being seen in [facility] podiatry clinic. She was noted to be lethargic and have a low blood pressure and heart rate. She had been seen in [facility] emergency room the previous night for similar symptoms as well as low-grade fever around 100. She was found to be anemic at that time with an elevated lactic acid level. She was given IV fluids and discharged back to the shelter. She has been in [facility] for ongoing rehab and IV antibiotic treatment with IV vancomycin. She is noted to have a PICC line for this treatment for wound/bone infection from recent partial right foot amputation. Hemoglobin was noted to be less than 7 After being seen in the emergency room she did improve somewhat with a better blood pressure and was afebrile yesterday morning. She was more alert but this progressively worsened throughout the day according to the patient. She was admitted for further evaluation and treatment from the office of [facility] with IV fluids and additional IV antibiotics. This morning patient states she feels better. She is hungry. She denies chest pain and shortness of breath. She denies cough. She does have some epigastric discomfort but denies nausea and vomiting and diarrhea. She did receive 3 units of packed red blood cells. Blood pressure has been stable and heart rate has been in the 70s and 80s during the night. She did drop her O2 sats during the night. Was placed on 1 L of oxygen per nasal cannula. This is off this morning and her O2 sats are good. Hemoglobin this morning is 10.1 with a hematocrit of 31.8. Electrolytes are normal; BUN is 12 and creatinine 0.8. Lactic acid is now normal. Troponin I was elevated on admission at 0.33; Chest x-ray did reveal patchy density in the right lung base posssibly due to atelectasis or infiltrate which is a new development. <Keisha Pedersen - 08/15/19 08:08> [facility] History Medical History: Reports:: Atherosclerotic Heart Disease, Cancer, Carotid Stenosis, Congestive Heart Failure, Coronary Artery Disease, Cerebrovascular Accident, Deep Vein Thrombosis, Depression, Diabetes Mellitus Type 2, Gall Bladder Disease, Heart Murmur, Hyperlipidemia, Hypertension, MRSA, Myocardial Infarction, Peripheral Artery Disease, Peripheral Vascular Disease, Renal Disease, Renal Insufficiency, Transient Ischemic Attacks (TIA), Urinary Tract Infection Denies:: Asthma, Chronic Obstructive Pulmonary Disease (COPD), Diabetes Mellitus Type 1, Internal Pacemaker, Lung Disease, Seizures <Carolina Pedersenhy 08/15/19 08:08> *Have you ever received a pneumonia vaccine?: No <Keisha Pedersen 08/15/19 08:08> *Have you received a flu vaccine this season?: Yes <Keisha Pedersen 08/15/19 08:08> Other Medical History: Reports: Arthritis, Chemotherapy, Sinus Problems, Other. Denies: Blood Transfusion Reaction <Keisha Pedersen 08/15/19 08:08> Laterality Cases: Left: Lumpectomy, Right: Mastectomy, Other, Bilateral: Carpal Tunnel Release <Carolina Pedersenhy 08/15/19 08:08> Other Surgeries: Yes: Cancer Surgery, Cardiac Catheterization, Cardiac Surgery, Cholecystectomy, Colonoscopy, Coronary Stent, , Open Heart Surgery, Tubal Ligation, Other (amputee left leg and right toes, stent to right leg). No: Pacemaker <Keisha Pedersen 08/15/19 08:08> Amputation: Yes (Left BKA 06/23/14; 4th toe right foot 2016) <Carolina Pedersenhy 08/15/19 08:08> Fractures: No <NuviaKeisha 08/15/19 08:08> - *Social History Educational Level: Completed College <Keisha Pedersen 08/15/19 08:08> Smoking Status: Never smoker <Carolina Pedersenhy 08/15/19 08:08> # Packs/Day (cigarettes): 0 <Carolina Pedersenhy 08/15/19 08:08> #Yrs smoked (if former smoker): 0 <Keisha Pedersen 08/15/19 08:08> Alcohol Intake: never <Keisha Pedersen 08/15/19 08:08> Alcohol Intake Frequency:: other <Keisha Pedersen - 08/15/19 08:08> Substance Use Type: denies use <Keisha Pedersen 08/15/19 08:08> *Occupational Status:: disabled <Keisha Pedersen 08/15/19 08:08> Housing: shelter <Keisha Pedersen 08/15/19 08:08> Household Members: none <Keisha Pedersen 08/15/19 08:08> *Travel in the last 8 weeks: None <Keisha Pedersen 08/15/19 08:08> - Psychiatric History Pschychiatric History:: Reports:: Depression <Keisha Pedersen 08/15/19 08:08> Family Hx:: Heart Attack <Keisha Pedersen 08/15/19 08:08> Review of Systems - Constitutional Reports headache(s), Reports weakness, Denies chills <Keisha Pedersen 08/15/19 08:08> - Eyes Denies change in vision <Keisha Pedersen 08/15/19 08:08> - ENT Reports headache(s), Denies ear pain, Denies post nasal drip, Denies sore throat <Keisha Pedersen 08/15/19 08:08> - *Cardiovascular Denies chest pain, Denies shortness of breath, Denies leg swelling, Denies rapid, pounding, or irregular heartbeat <Keisha Pedersen 08/15/19 08:08> - *Respiratory Denies chest congestion, Denies cough, Denies shortness of breath <Keisha Pedersen 08/15/19 08:08> - *Gastrointestinal Denies constipation, Denies cramping, Denies vomiting blood, Denies black, tarry stools, Denies nausea, Denies vomiting <Keisha Pedersen 08/15/19 08:08> Comments: Epigastric discomfort <Keisha Pedersen 08/15/19 08:08> - *Genitourinary Denies difficulty urinating <Keisha Pedersen 08/15/19 08:08> - *Musculoskeletal Reports joint pain (Right foot) <NuviaKeisha - 08/15/19 08:08> - *Neurologic Reports confusion, Reports dizziness <[facility] 08:08> Meds Home Medications Medication Instructions Recorded Confirmed Type amiloride 5 mg tablet 10 mg PO DAILY 09/22/17 08/14/19 History aspirin 25 mg-dipyridamole 200 mg 1 cap PO BID 09/22/17 08/14/19 History capsule,ext.release 12 hr multiphase baclofen 10 mg tablet 10 mg PO DAILY 09/22/17 08/14/19 History clopidogrel 75 mg tablet 75 mg PO DAILY 09/22/17 08/14/19 History glimepiride 2 mg tablet 2 mg PO DAILY 09/22/17 08/14/19 History metolazone 5 mg tablet 5 mg PO DAILY 09/22/17 08/14/19 History Baclofen [Lioresal 10mg tablet] 20 mg PO HS 11/20/17 08/14/19 History Citalopram Hydrobromide [Celexa 20 mg PO DAILY 11/20/17 08/14/19 History 20mg Tablet] Donepezil HCl [Aricept 5mg 5 mg PO HS 04/14/18 08/14/19 History Tablet] Potassium Chloride 60 meq PO TID 04/14/18 08/14/19 History Spironolactone [Aldactone 25mg 25 mg PO DAILY 04/14/18 08/14/19 History Tab] Furosemide [Furosemide 40MG tAB] 40 mg PO DAILY 04/15/18 08/14/19 History warfarin 5 mg tablet 5 mg PO SUTUWEFRSA tab 08/17/18 08/14/19 History Linagliptin/Metformin HCl 1 each PO BID 05/09/19 08/14/19 History [Jentadueto 2.5 mg-1000 mg Tab] Metoprolol Tartrate [Lopressor 12.5 mg PO BID 05/09/19 08/15/19 History 25mg tablet] Loratadine [Claritin] 10 mg PO DAILY 05/10/19 08/14/19 History Rosuvastatin Calcium [Crestor 20 20 mg PO HS 05/10/19 08/14/19 History mg Tablets] Warfarin Sodium 7.5 mg PO MOTH 05/10/19 08/14/19 History Cholecalciferol (Vitamin D3) 4,000 units PO DAILY 07/23/19 08/14/19 History [Vitamin D3] Insulin Lispro [HumaLOG 100 0 unit SQ DIRECTED 07/23/19 08/14/19 History units/mL 3mL vial (SSI)] Insulin Detemir [Levemir 40 unit SQ BID #0 08/02/19 08/14/19 Rx 100units/mL 3mL flexpen] Vancomycin/0.9 % Sod Chloride 1.5 gm IV DAILY 08/14/19 08/14/19 History [Vanco 1.5 gm/500 ml-0.9% NaCl] metroNIDAZOLE [metroNIDAZOLE 500mg 500 mg PO TID 08/14/19 08/14/19 History Tablet] <Shawn Alva - 08/15/19 08:25> Allergies Allergy/AdvReac Type Severity Reaction Status Date / Time azithromycin Allergy Intermediate S-DIFF. Verified 08/07/19 13:15 BREATHING daptomycin [DAPTOMYCIN] Allergy Intermediate I-RASH/ITCH Verified 08/07/19 13:15 ING levofloxacin Allergy Intermediate I-RASH Verified 08/07/19 13:15 Penicillins Allergy Intermediate I-HIVES Verified 08/07/19 13:15 <Shawn Alva - 08/15/19 08:25> Exam Vital signs and Labs for Last 24 Hours: Temp Pulse Resp BP Pulse Ox 99.1 F 76 18 116/61 94 L 08/15/19 04:00 08/15/19 08:00 08/15/19 08:00 08/15/19 08:00 08/15/19 08:00 Laboratory Results - last 24 hr 08/14/19 16:35: Blood Type B Negative, Antibody Screen Negative, Crossmatch (AHG) See Detail 08/14/19 16:35: WBC 8.3, RBC 2.67 L, Hgb 6.6 L* D, Hct 22.0 L*, MCV 82.5, MCH 25.3 L, MCHC 30.6 L, RDW 17.1, Plt Count 283, MPV 8.0, Neut % (Auto) 67.8, Lymph % (Auto) 23.6, [place] % (Auto) 5.8, Eos % (Auto) 2.5, Baso % (Auto) 0.2, Neut # (Auto) 5.6, Lymph # (Auto) 2.0, [place] # (Auto) 0.5, Eos # (Auto) 0.2, Baso # (Auto) 0.0 08/14/19 16:35: PT 14.3 H, INR 1.40 H 08/14/19 16:35: Sodium 136, Potassium 4.5 D, Chloride 103, Carbon Dioxide 26, Anion Gap 11.5, BUN 16, Creatinine 1.10 H D, Estimated Creat Clear 74, Estimated GFR 52 L, Est GFR ( Amer) 63 D, Glucose 94, Calcium 8.6, Phosphorus 3.6, Magnesium 1.7, Total Bilirubin < 0.1 L, AST 29, ALT 28, Alkaline Phospha tase 62, Troponin I 0.33 H, Total Protein 6.6, Albumin 3.1 L, Globulin 3.5 H, Albumin/Globulin Ratio 0.9 L 08/14/19 16:35: Lactate 3.3 H 08/14/19 16:59: Specimen Source Right brachial, O2 % 21, ABG pH 7.49 H, ABG pCO2 31.8 L, ABG pO2 79.3 L, ABG HCO3 23.6, ABG Total CO2 24.6, ABG O2 Saturation 95, ABG Base Excess 0.2, [place] Test N/a 08/14/19 18:08: POC Glucose 89 08/14/19 20:55: POC Glucose 104 08/14/19 21:13: Lactate 1.6 08/14/19 21:18: Stool Occult Blood Negative 08/15/19 00:25: Random Gentamicin 12.0 08/15/19 00:45: POC Glucose 77 08/15/19 03:19: Hgb 10.0 L D, Hct 31.3 L 08/15/19 04:58: WBC 8.4, RBC 3.93 L D, Hgb 10.1 L, Hct 31.8 L, MCV 80.9 L, MCH 25.7 L, MCHC 31.8, RDW 16.8, Plt Count 233, MPV 8.1, Neut % (Auto) 78.1, Lymph % (Auto) 14.3, [place] % (Auto) 5.3, Eos % (Auto) 2.0, Baso % (Auto) 0.4, Neut # (Auto) 6.6, Lymph # (Auto) 1.2, [place] # (Auto) 0.5, Eos # (Auto) 0.2, Baso # (Auto) 0.0 08/15/19 04:58: Sodium 136, Potassium 3.9, Chloride 102, Carbon Dioxide 26, Anion Gap 11.9, BUN 12, Creatinine 0.80 D, Estimated Creat Clear 105, Estimated GFR 76, Est GFR ( Amer) 92 D, Glucose 135 H D, Calcium 8.1 L 08/15/19 04:58: POC Glucose 138 H <Shawn Alva - 08/15/19 08:25> Temp Pulse Resp BP Pulse Ox 99.1 F 88 19 109/63 L 92 L 08/15/19 04:00 08/15/19 06:00 08/15/19 04:00 08/15/19 06:00 08/15/19 06:14 Laboratory Results - last 24 hr 08/14/19 16:35: Blood Type B Negative, Antibody Screen Negative, Crossmatch (AHG) See Detail 08/14/19 16:35: WBC 8.3, RBC 2.67 L, Hgb 6.6 L* D, Hct 22.0 L*, MCV 82.5, MCH 25.3 L, MCHC 30.6 L, RDW 17.1, Plt Count 283, MPV 8.0, Neut % (Auto) 67.8, Lymph % (Auto) 23.6, [place] % (Auto) 5.8, Eos % (Auto) 2.5, Baso % (Auto) 0.2, Neut # (Auto) 5.6, Lymph # (Auto) 2.0, [place] # (Auto) 0.5, Eos # (Auto) 0.2, Baso # (Auto) 0.0 08/14/19 16:35: PT 14.3 H, INR 1.40 H 08/14/19 16:35: Sodium 136, Potassium 4.5 D, Chloride 103, Carbon Dioxide 26, Anion Gap 11.5, BUN 16, Creatinine 1.10 H D, Estimated Creat Clear 74, Estimated GFR 52 L, Est GFR ( Amer) 63 D, Glucose 94, Calcium 8.6, Phosphorus 3.6, Magnesium 1.7, Total Bilirubin < 0.1 L, AST 29, ALT 28, Alkaline Phosphatase 62, Troponin I 0.33 H, Total Protein 6.6, Albumin 3.1 L, Globulin 3.5 H, Albumin/Globulin Ratio 0.9 L 08/14/19 16:35: Lactate 3.3 H 08/14/19 16:59: Specimen Source Right brachial, O2 % 21, ABG pH 7.49 H, ABG pCO2 31.8 L, ABG pO2 79.3 L, ABG HCO3 23.6, ABG Total CO2 24.6, ABG O2 Saturation 95, ABG Base Excess 0.2, [place] Test N/a 08/14/19 18:08: POC Glucose 89 08/14/19 20:55: POC Glucose 104 08/14/19 21:13: Lactate 1.6 08/14/19 21:18: Stool Occult Blood Negative 08/15/19 00:25: Random Gentamicin 12.0 08/15/19 00:45: POC Glucose 77 08/15/19 03:19: Hgb 10.0 L D, Hct 31.3 L 08/15/19 04:58: WBC 8.4, RBC 3.93 L D, Hgb 10.1 L, Hct 31.8 L, MCV 80.9 L, MCH 25.7 L, MCHC 31.8, RDW 16.8, Plt Count 233, MPV 8.1, Neut % (Auto) 78.1, Lymph % (Auto) 14.3, [place] % (Auto) 5.3, Eos % (Auto) 2.0, Baso % (Auto) 0.4, Neut # (Auto) 6.6, Lymph # (Auto) 1.2, [place] # (Auto) 0.5, Eos # (Auto) 0.2, Baso # (Auto) 0.0 08/15/19 04:58: Sodium 136, Potassium 3.9, Chloride 102, Carbon Dioxide 26, Anion Gap 11.9, BUN 12, Creatinine 0.80 D, Estimated Creat Clear 105, Estimated GFR 76, Est GFR ( Amer) 92 D, Glucose 135 H D, Calcium 8.1 L 08/15/19 04:58: POC Glucose 138 H <Keisha Pedersen - 08/15/19 08:08> I & O for Last 24 hours: Intake & Output 08/12/19 08/13/19 08/14/19 08/15/19 23:59 23:59 23:59 23:59 Intake Total 911 / 911 Output Total 900 / 900 Balance Weight 171 lb 8 oz 176 lb 4 oz <Shawn Alva - 08/15/19 08:25> Intake & Output 08/12/19 08/13/19 08/14/19 08/15/19 11:59 11:59 11:59 11:59 Intake Total 911 / 911 Output Total 900 / 900 Balance Weight 176 lb 4 oz <Keisha Pedersen 08/15/19 08:08> Radiology Reports for the Last 24 Hours: 08/14/2019 chest x-ray IMPRESSION: Patchy density right lung base which may be due to an area of atelectasis or infiltrate which has developed in the interval <NuviaKeisha 08/15/19 08:08> - Constitutional no acute distress <NuviaKeisha 08/15/19 08:08> Comments: Wide-awake and watching TV. Appears comfortable. Denies leg pain this morning. <PedersenKeisha Dez 08/15/19 08:08> - *Routine HEENT Exam Head: Present: normocephalic, atraumatic <Keisha Pedersen 08/15/19 08:08> Eye: Present: PERRL. Absent: conjunctival icterus, scleral injection <PedersenKeisha Dez 08/15/19 08:08> ENT: Present: mucous membranes moist, oropharynx clear <Keisha Pedersen 08/15/19 08:08> - *Routine Neck Exam Present: supple. Absent: carotid bruit, lymphadenopathy, thyromegaly <PedersenKeisha Dez 08/15/19 08:08> - *Routine Respiratory Exam Comments: Few bibasilar crackles. <PedersenKeisha Dez 08/15/19 08:08> - *Routine Cardiovascular Exam Present: RRR, murmur <PedersenKeisha 08/15/19 08:08> Comments: Monitor showing a sinus rhythm in the 70s <PedersenKeisha Dez 08/15/19 08:08> - *Routine Abdominal Exam Present: soft, normoactive bowel sounds, tenderness (Epigastrium), obese. Absent: guarding <NuviaKeisha Dez 08/15/19 08:08> - *Routine Extremities Exam Present: edema (Trace edema in the left leg; dressing on right foot clean and dry) <Keisha Pedersen - 08/15/19 08:08> - *Routine Neurological Exam Present: alert, oriented X3 <Keisha Pedersen - 08/15/19 08:08> Assessment and Plan (1) Lethargic Current visit: Yes Status: Acute Category: Medical Code(s): R53.83 - Other fatigue (2) Bradycardia Current visit: Yes Status: Acute Category: Medical Code(s): R00.1 - Br adycardia, unspecified (3) Elevated lactic acid level Current visit: Yes Status: Acute Category: Medical Code(s): R79.89 - Other specified abnormal findings of blood chemistry (4) Arterial insufficiency of lower extremity Current visit: No Status: Acute Category: Medical Code(s): I73.9 - Peripheral vascular disease, unspecified (5) Hypotension Current visit: No Status: Acute Qualifiers: Hypotension type: unspecified hypotension type Qualified Code(s): I95.9 - Hypotension, unspecified Category: Medical Code(s): I95.9 - Hypotension, unspecified (6) Anemia Current visit: No Status: Chronic Qualifiers: Anemia type: unspecified type Qualified Code(s): D64.9 - Anemia, unspecified Category: Medical Code(s): D64.9 - Anemia, unspecified (7) Coronary arteriosclerosis Current visit: No Status: Chronic Category: Medical Code(s): I25.10 - Atherosclerotic heart disease of [place] coronary artery without angina pectoris (8) Diabetes mellitus Current visit: No Status: Chronic Qualifiers: Diabetes mellitus type: type 2 Diabetes mellitus assisted insulin use: without adjunct faculty for medical terminology use Diabetes mellitus complication status: with neurologic complications Diabetes mellitus complication detail: with polyneuropathy Qualified Code(s): E11.42 - Type 2 diabetes mellitus with diabetic polyneuropathy Category: Medical Code(s): E11.9 - Type 2 diabetes mellitus without complications (9) Hemiparesis affecting left side as late effect of cerebrovascular accident Current visit: No Status: Chronic Category: Medical Code(s): I69.354 - Hemiplegia and hemiparesis following cerebral infarction affecting left non- dominant side (10) History of CVA (cerebrovascular accident) Current visit: No Status: Chronic Category: Medical Code(s): Z86.73 - Personal history of transient ischemic attack (TIA), and cerebral infarction without residual deficits (11) History of left below knee amputation Current visit: No Status: Chronic Category: Medical Code(s): Z89.512 - Acquired absence of left leg below knee (12) Hypertensive heart disease without heart failure Current visit: No Status: Chronic Category: Medical Code(s): I11.9 - Hypertensive heart disease without heart failure (13) Left spastic hemiparesis Current visit: No Status: Chronic Category: Medical Code(s): G81.14 - Spastic hemiplegia affecting left nondominant side (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 Current visit: No Status: Chronic Category: Medical Code(s): Z79.01 - care home (current) use of 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 (15) Peripheral arterial occlusive disease Current visit: No Status: Chronic Category: Medical Code(s): I77.9 - Disorder of arteries and arterioles, unspecified (16) Hypoxia Current visit: Yes Status: Acute Category: Medical Code(s): R09.02 - Hypoxemia (17) Troponin I above reference range Current visit: Yes Status: Acute Category: Medical Code(s): R79.89 - Other specified abnormal findings of blood chemistry <ArtieShawn - 08/15/19 08:25> (1) Lethargic Current visit: Yes Status: Acute Category: Medical Code(s): R53.83 - Other fatigue (2) Bradycardia Current visit: Yes Status: Acute Category: Medical Code(s): R00.1 - Bradycardia, unspecified (3) Elevated lactic acid level Current visit: Yes Status: Acute Category: Medical Code(s): R79.89 - Other specified abnormal findings of blood chemistry (4) Arterial insufficiency of lower extremity Current visit: No Status: Acute Category: Medical Code(s): I73.9 - Peripheral vascular disease, unspecified (5) Hypotension Current visit: No Status: Acute Qualifiers: Hypotension type: unspecified hypotension type Qualified Code(s): I95.9 - Hypotension, unspecified Category: Medical Code(s): I95.9 - Hypotension, unspecified (6) Anemia Current visit: No Status: Chronic Qualifiers: Anemia type: unspecified type Qualified Code(s): D64.9 - Anemia, unspecified Category: Medical Code(s): D64.9 - Anemia, unspecified (7) Coronary arteriosclerosis Current visit: No Status: Chronic Category: Medical Code(s): I25.10 - Atherosclerotic heart disease of [place] coronary artery without angina pectoris (8) Diabetes mellitus Current visit: No Status: Chronic Qualifiers: Diabetes mellitus type: type 2 Diabetes mellitus assisted insulin use: wi thout adjunct faculty for medical terminology use Diabetes mellitus complication status: with neurologic complications Diabetes mellitus complication detail: with polyneuropathy Qualified Code(s): E11.42 - Type 2 diabetes mellitus with diabetic polyneuropathy Category: Medical Code(s): E11.9 - Type 2 diabetes mellitus without complications (9) Hemiparesis affecting left side as late effect of cerebrovascular accident Current visit: No Status: Chronic Category: Medical Code(s): I69.354 - Hemiplegia and hemiparesis following cerebral infarction affecting left non-dom inant side (10) History of CVA (cerebrovascular accident) Current visit: No Status: Chronic Category: Medical Code(s): Z86.73 - Personal history of transient ischemic attack (TIA), and cerebral infarction without residual deficits (11) History of left below knee amputation Current visit: No Status: Chronic Category: Medical Code(s): Z89.512 - Acquired absence of left leg below knee (12) Hypertensive heart disease without heart failure Current visit: No Status: Chronic Category: Medical Code(s): I11.9 - Hypertensive heart disease without heart failure (13) Left spastic hemiparesis Current visit: No Status: Chronic Category: Medical Code(s): G81.14 - Spastic hemiplegia affecting left nondominant side (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 Patient's mental status has improved today. Recheck troponin due to borderline elevation and CXR today due to possible pneumonia <Shawn Alva - 08/15/19 08:25> Blood sugars have been normal and will continue to monitor. Continue with IV fluids and triple antibiotic coverage. Will repeat chest x-ray this a.m. as well. We will continue with IV Protonix. Will start on a diabetic cardiac diet. <Keisha Pedersen - 08/15/19 08:08>
[2019-08-15 08:28] LABS: C-Reactive Protein 87.3 mg/L (0-4)
--- NOTE | 2019-08-15 09:29 | Consult Report ---
*Admission Date: 08/14/19 *Reason for consult:: Right foot amputation *History of present illness: Patient presented to office of [facility] after being seen in the [facility] podiatry clinic 08/15/19. Patient was noted to be lethargic and have low BP and HR. Patient was seen in the [facility] ER last night for similar symptoms as well as a low grade fever around 100. She was found to be anemic at that time with an elevated Lactic acid level. She was given IV fluids and discharged back to the [facility]. She currently has a PICC line and is being treated with Vancomycin due to wound/bone infection from recent partial right foot amputation. 07/30/19: s/p right transmetatarsal amputation (TMA), tendo Achilles lengthening (CASSANDRA). Review of Systems - Review of Systems Review of systems:: pertinent systems reviewed and negative unless documented below - Constitutional Reports fatigue, Reports weakness - Eyes Denies blind spots - ENT Denies abnormal hearing - *Cardiovascular Reports shortness of breath, Denies chest pain - *Respiratory Denies cough - *Gastrointestinal Reports nausea - *Genitourinary Denies abnormal periods - *Musculoskeletal Reports limited joint movement, Reports muscle weakness - Integumentary/Breasts Reports hair loss, Reports dry skin, Reports wounds - *Neurologic Reports confusion, Reports dizziness, Reports headache(s), Reports weakness - Psychiatric Denies abnormal sleep pattern - Endocrine Reports cold intolerance - Hematologic/Lymphatic Reports easy bruising [facility] History I have reviewed the patient's past medical history: Yes Medical History: Reports:: Atherosclerotic Heart Disease, Cancer, Carotid Stenosis, Congestive Heart Failure, Coronary Artery Disease, Cerebrovascular Accident, Deep Vein Thrombosis, Depression, Diabetes Mellitus Type 2, Gall Bladder Disease, Heart Murmur, Hyperlipidemia, Hypertension, MRSA, Myocardial Infarction, Peripheral Artery Disease, Peripheral Vascular Disease, Renal Disease, Renal Insufficiency, Transient Ischemic Attacks (TIA), Urinary Tract Infection Denies:: Asthma, Chronic Obstructive Pulmonary Disease (COPD), Diabetes Mellitus Type 1, Internal Pacemaker, Lung Disease, Seizures *Have you ever received a pneumonia vaccine?: No *Have you received a flu vaccine this season?: Yes Other Medical History: Reports: Arthritis, Chemotherapy, Sinus Problems, Other. Denies: Blood Transfusion Reaction Laterality Cases: Left: Lumpectomy, Right: Mastectomy, Other, Bilateral: Carpal Tunnel Release Other Surgeries: Yes: Cancer Surgery, Cardiac Catheterization, Cardiac Surgery, Cholecystectomy, Colonoscopy, Coronary Stent, , Open Heart Surgery, Tubal Ligation, Other (amputee left leg and right toes, stent to right leg). No: Pacemaker Amputation: Yes (Left BKA 06/23/14; 4th toe right foot 2016) Fractures: No - *Social History Educational Level: Completed College Smoking Status: Never smoker # Packs/Day (cigarettes): 0 #Yrs smoked (if former smoker): 0 Alcohol Intake: never Alcohol Intake Frequency:: other Substance Use Type: denies use *Occupational Status:: disabled Housing: [facility] Household Members: none *Travel in the last 8 weeks: None - Psychiatric History Pschychiatric History:: Reports:: Depression Family Hx:: Heart Attack Meds Home Medications Medication Instructions Recorded Confirmed Type amiloride 5 mg tablet 5 mg PO DAILY 09/22/17 08/15/19 History aspirin 25 mg-dipyridamole 200 mg 1 cap PO BID 09/22/17 08/14/19 History capsule,ext.release 12 hr multiphase baclofen 10 mg tablet 10 mg PO DAILY 09/22/17 08/14/19 History clopidogrel 75 mg tablet 75 mg PO DAILY 09/22/17 08/14/19 History glimepiride 2 mg tablet 2 mg PO DAILY 09/22/17 08/14/19 History metolazone 5 mg tablet 5 mg PO DAILY 09/22/17 08/14/19 History Citalopram Hydrobromide [Celexa 20 mg PO DAILY 11/20/17 08/14/19 History 20mg Tablet] Donepezil HCl [Aricept 5mg 5 mg PO HS 04/14/18 08/14/19 History Tablet] Potassium Chloride 60 meq PO TID 04/14/18 08/14/19 History Spironolactone [Aldactone 25mg 25 mg PO DAILY 04/14/18 08/14/19 History Tab] Furosemide [Furosemide 40MG tAB] 40 mg PO DAILY 04/15/18 08/14/19 History warfarin 5 mg tablet 5 mg PO SUTUTHSA tab 08/17/18 08/15/19 History Metoprolol Tartrate [Lopressor 12.5 mg PO DAILY 05/09/19 08/15/19 History 25mg tablet] Loratadine [Claritin] 10 mg PO DAILY 05/10/19 08/14/19 History Cholecalciferol (Vitamin D3) 4,000 units PO DAILY 07/23/19 08/14/19 History [Vitamin D3] Insulin Lispro [HumaLOG 100 0 unit SQ DIRECTED 07/23/19 08/14/19 History units/mL 3mL vial (SSI)] Insulin Detemir [Levemir 40 unit SQ BID #0 08/02/19 08/14/19 Rx 100units/mL 3mL flexpen] Vancomycin/0.9 % Sod Chloride 1.5 gm IV DAILY 08/14/19 08/14/19 History [Vanco 1.5 gm/500 ml-0.9% NaCl] Atorvastatin 40mg Tab 40 mg PO HS 08/15/19 08/15/19 History Baclofen 20 mg PO HS 08/15/19 08/15/19 History Florastor 250 mg PO BID 08/15/19 08/15/19 History Linagliptin/Metformin HCl 1 each PO BID 08/15/19 08/15/19 History [Jentadueto Xr 2.5 mg-1,000 mg] Warfarin Sodium 2.5 mg PO MOWEFR 08/15/19 08/15/19 History Allergies Allergy/AdvReac Type Severity Reaction Status Date / Time azithromycin Allergy Intermediate S-DIFF. Verified 08/07/19 13:15 BREATHING daptomycin [DAPTOMYCIN] Allergy Intermediate I-RASH/ITCH Verified 08/07/19 13:15 ING levofloxacin Allergy Intermediate I-RASH Verified 08/07/19 13:15 Penicillins Allergy Intermediate I-HIVES Verified 08/07/19 13:15 Exam Vital signs and Labs for Last 24 Hours: Temp Pulse Resp BP Pulse Ox 99.1 F 76 18 116/61 94 L 08/15/19 04:00 08/15/19 08:00 08/15/19 08:00 08/15/19 08:00 08/15/19 08:00 Laboratory Results - last 24 hr 08/14/19 16:35: Blood Type B Negative, Antibody Screen Negative, Crossmatch ([facility]) See Detail 08/14/19 16:35: WBC 8.3, RBC 2.67 L, Hgb 6.6 L* D, Hct 22.0 L*, MCV 82.5, MCH 25.3 L, MCHC 30.6 L, RDW 17.1, Plt Count 283, MPV 8.0, Neut % (Auto) 67.8, Lymph % (Auto) 23.6, [place] % (Auto) 5.8, Eos % (Auto) 2.5, Baso % (Auto) 0.2, Neut # (Auto) 5.6, Lymph # (Auto) 2.0, [place] # (Auto) 0.5, Eos # (Auto) 0.2, Baso # (Auto) 0.0 08/14/19 16:35: PT 14.3 H, INR 1.40 H 08/14/19 16:35: Sodium 136, Potassium 4.5 D, Chloride 103, Carbon Dioxide 26, Anion Gap 11.5, BUN 16, Creatinine 1.10 H D, Estimated Creat Clear 74, Estimated GFR 52 L, Est GFR ( Amer) 63 D, Glucose 94, Calcium 8.6, Phosphorus 3.6, Magnesium 1.7, Total Bilirubin < 0.1 L, AST 29, ALT 28, Alkaline Phosphatase 62, Troponin I 0.33 H, Total Protein 6.6, Albumin 3.1 L, Globulin 3.5 H, Albumin/Globulin Ratio 0.9 L 08/14/19 16:35: Lactate 3.3 H 08/14/19 16:59: Specimen Source Right brachial, O2 % 21, ABG pH 7.49 H, ABG pCO2 31.8 L, ABG pO2 79.3 L, ABG HCO3 23.6, ABG Total CO2 24.6, ABG O2 Saturation 95, ABG Base Excess 0.2, [place] Test N/a 08/14/19 18:08: POC Glucose 89 08/14/19 20:55: POC Glucose 104 08/14/19 21:13: Lactate 1.6 08/14/19 21:18: Stool Occult Blood Negative 08/15/19 00:25: Random Gentamicin 12.0 08/15/19 00:45: POC Glucose 77 08/15/19 03:19: Hgb 10.0 L D, Hct 31.3 L 08/15/19 04:58: WBC 8.4, RBC 3.93 L D, Hgb 10.1 L, Hct 31.8 L, MCV 80.9 L, MCH 25.7 L, MCHC 31.8, RDW 16.8, Plt Count 233, MPV 8.1, Neut % (Auto) 78.1, Lymph % (Auto) 14.3, [place] % (Auto) 5.3, Eos % (Auto) 2.0, Baso % (Auto) 0.4, Neut # (Auto) 6.6, Lymph # (Auto) 1.2, [place] # (Auto) 0.5, Eos # (Auto) 0.2, Baso # (Auto) 0.0 08/15/19 04:58: Sodium 136, Potassium 3.9, Chloride 102, Carbon Dioxide 26, Anion Gap 11.9, BUN 12, Creatinine 0.80 D, Estimated Creat Clear 105, Estimated GFR 76, Est GFR ( Amer) 92 D, Glucose 135 H D, Calcium 8.1 L 08/15/19 04:58: POC Glucose 138 H 08/15/19 04:58: ESR > 140 H 08/15/19 04:58: Troponin I 0.23 H, C-Reactive Protein 87.3 H I & O for Last 24 hours: Intake & Output 08/12/19 08/13/19 08/14/19 08/15/19 11:59 11:59 11:59 11:59 Intake Total 911 / 911 Output Total 900 / 900 Balance Weight 176 lb 4 oz - Constitutional obese, chronically ill appearing - *Routine HEENT Exam Head: Present: normocephalic - *Routine Neck Exam Present: supple - *Routine Respiratory Exam Absent: respiratory distress - *Routine Cardiovascular Exam Present: RRR - *Routine Abdominal Exam Present: distended - *Routine Rectal Exam Patient deferred: visual exam - *Routine Exam Patient deferred: external exam - *Routine Extremities Exam Present: edema, amputation (R TMA) - *Routine Skin Exam Present: erythema, wounds, gangrene, ecchymosis - *Routine Neurological Exam Present: alert - Detailed Lower Extremity Exam Top foot image: 1 - Right TMA. [place] and sutures intact to right TMA and CASSANDRA incision sites. No purulence. Erythema and eccyhmosis localized to TMA incision. The skin flap is macerated and wet. Gangrenous changes with dusky discoloration noted. There is no drainage, no ascending cellulitis. No POP. Results - Labs Result Diagrams: 08/15/19 04:58 08/15/19 04:58 Labs: Abnormal lab results 08/14/19 08/14/19 08/14/19 Range/Units 16:35 16:35 16:35 RBC 2.67 L (4.20-5.40) M/mm3 Hgb 6.6 L* D (12.2-16.2) g/dL Hct 22.0 L* (37.0-47.0) % MCV (81-99) fl MCH 25.3 L (27.0-31.2) pg MCHC 30.6 L (31.8-35.4) g/dL ESR (0-30) mm/hr PT 14.3 H (9.4-11.8) seconds INR 1.40 H (0.9-1.1) ABG pH (7.35-7.45) mmol/L ABG pCO2 (35.0-45.0) mmhg ABG pO2 (80-100) mmhg Creatinine (0.52-1.04) mg/dl Estimated GFR (>60) ml/min Glucose (74-100) mg/dl POC Glucose (70-110) Lactate (0.7-2.1) mmol/L Calcium (8.4-10.2) mg/dl Total Bilirubin (0.2-1.3) mg/dl Troponin I (0.00-0.034) ng/ml C-Reactive Protein (0-4) mg/L Albumin (3.5-5.0) g/dl Globulin (1.3-3.2) g/dL Albumin/Globulin Ratio (1.1-1.8) Crossmatch ([facility]G) See Detail 08/14/19 08/14/19 08/14/19 Range/Units 16:35 16:35 16:59 RBC (4.20-5.40) M/mm3 Hgb (12.2-16.2) g/dL Hct (37.0-47.0) % MCV (81-99) fl MCH (27.0-31.2) pg MCHC (31.8-35.4) g/dL ESR (0-30) mm/hr PT (9.4-11.8) seconds INR (0.9-1.1) ABG pH 7.49 H (7.35-7.45) mmol/L ABG pCO2 31.8 L (35.0-45.0) mmhg ABG pO2 79.3 L (80-100) mmhg Creatinine 1.10 H D (0.52-1.04) mg/dl Estimated GFR 52 L (>60) ml/min Glucose (74-100) mg/dl POC Glucose (70-110) Lactate 3.3 H (0.7-2.1) mmol/L Calcium (8.4-10.2) mg/dl Total Bilirubin < 0.1 L (0.2-1.3) mg/dl Troponin I 0.33 H (0.00-0.034) ng/ml C-Reactive Protein (0-4) mg/L Albumin 3.1 L (3.5-5.0) g/dl Globulin 3.5 H (1.3-3.2) g/dL Albumin/Globulin Ratio 0.9 L (1.1-1.8) Crossmatch ([facility]) 08/15/19 08/15/19 08/15/19 Range/Units 03:19 04:58 04:58 RBC 3.93 L D (4.20-5.40) M/mm3 Hgb 10.0 L D 10.1 L (12.2-16.2) g/dL Hct 31.3 L 31.8 L (37.0-47.0) % MCV 80.9 L (81-99) fl MCH 25.7 L (27.0-31.2) pg MCHC (31.8-35.4) g/dL ESR (0-30) mm/hr PT (9.4-11.8) seconds INR (0.9-1.1) ABG pH (7.35-7.45) mmol/L ABG pCO2 (35.0-45.0) mmhg ABG pO2 (80-100) mmhg Creatinine (0.52-1.04) mg/dl Estimated GFR (>60) ml/min Glucose 135 H D (74-100) mg/dl POC Glucose (70-110) Lactate (0.7-2.1) mmol/L Calcium 8.1 L (8.4-10.2) mg/dl Total Bilirubin (0.2-1.3) mg/dl Troponin I (0.00-0.034) ng/ml C-Reactive Protein (0-4) mg/L Albumin (3.5-5.0) g/dl Globulin (1.3-3.2) g/dL Albumin/Globulin Ratio (1.1-1.8) Crossmatch ([facility]) 08/15/19 08/15/19 08/15/19 Range/Units 04:58 04:58 04:58 RBC (4.20-5.40) M/mm3 Hgb (12.2-16.2) g/dL Hct (37.0-47.0) % MCV (81-99) fl MCH (27.0-31.2) pg MCHC (31.8-35.4) g/dL ESR > 140 H (0-30) mm/hr PT (9.4-11.8) seconds INR (0.9-1.1) ABG pH (7.35-7.45) mmol/L ABG pCO2 (35.0-45.0) mmhg ABG pO2 (80-100) mmhg Creatinine (0.52-1.04) mg/dl Estimated GFR (>60) ml/min Glucose (74-100) mg/dl POC Glucose 138 H (70-110) Lactate (0.7-2.1) mmol/L Calcium (8.4-10.2) mg/dl Total Bilirubin (0.2-1.3) mg/dl Troponin I 0.23 H (0.00-0.034) ng/ml C-Reactive Protein 87.3 H (0-4) mg/L Albumin (3.5-5.0) g/dl Globulin (1.3-3.2) g/dL Albumin/Globulin Ratio (1.1-1.8) Crossmatch ([facility]) H & H 08/14/19 08/15/19 08/15/19 Range/Units 16:35 03:19 04:58 Hgb 6.6 L* D 10.0 L D 10.1 L (12.2-16.2) g/dL Hct 22.0 L* 31.3 L 31.8 L (37.0-47.0) % Coagulation 08/14/19 Range/Units 16:35 INR 1.40 H (0.9-1.1) All other labs normal. - Diagnostic results Ankle/Foot x-ray: image reviewed (No gas bubbles. Elias intact. s/p TMA) Assessment and Plan (1) Lethargic Current visit: Yes Status: Acute Category: Medical Code(s): R53.83 - Other fatigue (2) Bradycardia Current visit: Yes Status: Acute Category: Medical Code(s): R00.1 - Bradycardia, unspecified (3) Elevated lactic acid level Current visit: Yes Status: Acute Category: Medical Code(s): R79.89 - Other specified abnormal findings of blood chemistry (4) Arterial insufficiency of lower extremity Current visit: No Status: Acute Category: Medical Code(s): I73.9 - Peripheral vascular disease, unspecified (5) Hypotension Current visit: No Status: Acute Qualifiers: Hypotension type: unspecified hypotension type Qualified Code(s): I95.9 - Hypotension, unspecified Category: Medical Code(s): I95.9 - Hypotension, unspecified (6) Anemia Current visit: No Status: Chronic Qualifiers: Anemia type: unspecified type Qualified Code(s): D64.9 - Anemia, unspecified Category: Medical Code(s): D64.9 - Anemia, unspecified (7) Coronary arteriosclerosis Current visit: No Status: Chronic Category: Medical Code(s): I25.10 - Atherosclerotic heart disease of [place] coronary artery without angina pectoris (8) Diabetes mellitus Current visit: No Status: Chronic Qualifiers: Diabetes mellitus type: type 2 Diabetes mellitus snf insulin use: without snf use Diabetes mellitus complication status: with neurologic complications Diabetes mellitus complication detail: with polyneuropathy Qualified Code(s): E11.42 - Type 2 diabetes mellitus with diabetic polyneuropathy Category: Medical Code(s): E11.9 - Type 2 diabetes mellitus without complications (9) Hemiparesis affecting left side as late effect of cerebrovascular accident Current visit: No Status: Chronic Category: Medical Code(s): I69.354 - Hemiplegia and hemiparesis following cerebral infarction affecting left non- dominant side (10) History of CVA (cerebrovascular accident) Current visit: No Status: Chronic Category: Medical Code(s): Z86.73 - Personal history of transient ischemic attack (TIA), and cerebral infarction without residual deficits (11) History of left below knee amputation Current visit: No Status: Chronic Category: Medical Code(s): Z89.512 - Acquired absence of left leg below knee (12) Hypertensive heart disease without heart failure Current visit: No Status: Chronic Category: Medical Code(s): I11.9 - Hypertensive heart disease without heart failure (13) Left spastic hemiparesis Current visit: No Status: Chronic Category: Medical Code(s): G81.14 - Spastic hemiplegia affecting left nondominant side (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 Current visit: No Status: Chronic Category: Medical Code(s): Z79.01 - mental health coordinator (current) use of 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 (15) Peripheral arterial occlusive disease Current visit: No Status: Chronic Category: Medical Code(s): I77.9 - Disorder of arteries and arterioles, unspecified (16) Hypoxia Current visit: Yes Status: Acute Category: Medical Code(s): R09.02 - Hypoxemia (17) Troponin I above reference range Current visit: Yes Status: Acute Category: Medical Code(s): R79.89 - Other specified abnormal findings of blood chemistry (18) Status post transmetatarsal amputation of right foot Start date: 07/30/19 Current visit: Yes Status: Acute Category: Surgical Code(s): Z89.431 - Acquired absence of right foot (19) Discoloration of skin of foot Current visit: No Status: Acute Category: Medical Code(s): L81.9 - Disorder of pigmentation, unspecified - Assessment and plan all Dx Assessment and Plan for all problems:: 07/30/19: s/p right transmetatarsal amputation (TMA), tendo Achilles lengthening (CASSANDRA) POD # 2w, 2d 07/30/19, intra-op right toe bone: Skin and subcutaneous tissue with gangrenous necrosis, extending to the surgical margin. Underlying bone with osteonecrosis, negative for acute osteomyelitis. Intra-op bone, right foot metatarsal margin: Fragments of bone, negative for acute osteomyelitis 07/30/19, wound culture right 4th toe: Streptococcus sanguinus, GPC 07/30/19, bone culture right 2nd toe: Staphylococcus epidermidis, Kingella denitrificans S. epidermidis: MRSA and resistant to erythromycin, oxacillin, penicillin. Susceptible to clindamycin, daptomycin, gentamicin, rifampin, tetracycline and vancomycin Patient was admitted yesterday. Dressing change of the right foot performed this morning. There was an area of bogginess. Sutures x2 and elias x3 were removed from the central aspect of the TMA incision site. There was no purulence expressed. The area was flushed with normal saline. 15 blade and pickups used to debride that skin. No kelsea necrotic skin noted. The tissue was just very macerated. Skin was cleansed with Betadine. Betadine soaked 4x4's applied then dry 4x4's, Kerlex and Frank were placed to the foot. Patient is to keep this dressing clean, dry, and intact; do not get wet in shower. Minimize weight bearing. Elevate and Motrin for pain and swelling. Hold ice. X-rays 3 views the right foot taken while is at the bedside. X-rays immediately checked and no gas bubbles noted. I had him hold the breakfast tray until I saw the x- rays to make sure the patient did not need to return to surgery for incision and drainage or debridement. No gas noted and no purulence or worsening signs of infection. Patient may eat as tolerated. Discussed if skin does necrosis and , I can revise the TMA skin flap and can use a wound vac. However, we will m onitor and do daily dressing changes to dry out incision. No plans for surgical intervention at this time. Plan: 1. Daily dressing changes: Betadine soaked 4x4's, then dry 4x4's, Kerlex and Frank 2. NWB to right foot, unless to transition to wheelchair (use fracture boot) 3. Continue IV Abx, PICC x 4 more weeks 4. Plan for dressing change again at bedside tomorrow by Podiatry [facility] Orders: -PICC, IV Vanco (pharm to dose) x 4 more weeks for right foot infection -Weekly CBC, ESR, CRP to trend infection markers -Daily dressing changes to right foot -Cleanse skin with wound guide rail cleaner or Betadine, and then dry thoroughly -Apply betadine soaked 4x4's, then dry 4x4's, kerlix and secure with tape or light Frank bandage -Avoid compression -NWB to RLE. Okay for physical therapy for gait training and transitions to bedside commode -Must wear fracture boot when in wheelchair and out of room (protect posterior incision sites) -Okay to wear flat post op shoe in bed or in room
--- NOTE | 2019-08-15 10:27 | Pharmacy Consult Notes ---
- Pharmacy Consult Date: 08/15/19 Time: 10:25 Referring provider: DR. CAVAZOS Reason for Consult:: VANCOMYCIN TROUGH LEVEL Allergies and ADEs:: Allergies Allergy/AdvReac Type Severity Reaction Status Date / Time azithromycin Allergy Intermediate S-DIFF. Verified 08/07/19 13:15 BREATHING daptomycin [DAPTOMYCIN] Allergy Intermediate I-RASH/ITCH Verified 08/07/19 13:15 ING levofloxacin Allergy Intermediate I-RASH Verified 08/07/19 13:15 Penicillins Allergy Intermediate I-HIVES Verified 08/07/19 13:15 Home Medications:: Home Medications Medication Instructions Recorded Confirmed Type amiloride 5 mg tablet 5 mg PO DAILY 09/22/17 08/15/19 History aspirin 25 mg-dipyridamole 200 mg 1 cap PO BID 09/22/17 08/15/19 History capsule,ext.release 12 hr multiphase baclofen 10 mg tablet 10 mg PO DAILY 09/22/17 08/15/19 History clopidogrel 75 mg tablet 75 mg PO DAILY 09/22/17 08/15/19 History glimepiride 2 mg tablet 2 mg PO DAILY 09/22/17 08/15/19 History metolazone 5 mg tablet 5 mg PO DAILY 09/22/17 08/15/19 History Citalopram Hydrobromide [Celexa 20 mg PO DAILY 11/20/17 08/15/19 History 20mg Tablet] Donepezil HCl [Aricept 5mg 5 mg PO HS 04/14/18 08/15/19 History Tablet] Potassium Chloride 60 meq PO TID 04/14/18 08/15/19 History Spironolactone [Aldactone 25mg 25 mg PO DAILY 04/14/18 08/15/19 History Tab] Furosemide [Furosemide 40MG tAB] 40 mg PO DAILY 04/15/18 08/15/19 History warfarin 5 mg tablet 5 mg PO SUTUTHSA tab 08/17/18 08/15/19 History Metoprolol Tartrate [Lopressor 12.5 mg PO DAILY 05/09/19 08/15/19 History 25mg tablet] Loratadine [Claritin] 10 mg PO DAILY 05/10/19 08/15/19 History Cholecalciferol (Vitamin D3) 4,000 units PO DAILY 07/23/19 08/15/19 History [Vitamin D3] Insulin Lispro [HumaLOG 100 0 unit SQ DIRECTED 07/23/19 08/15/19 History units/mL 3mL vial (SSI)] Insulin Detemir [Levemir 40 unit SQ BID #0 08/02/19 08/15/19 Rx 100units/mL 3mL flexpen] Vancomycin/0.9 % Sod Chloride 1.5 gm IV DAILY 08/14/19 08/15/19 History [Vanco 1.5 gm/500 ml-0.9% NaCl] Acetaminophen 1,000 mg PO Q6HP PRN 08/15/19 08/15/19 History Atorvastatin 40mg Tab 40 mg PO HS 08/15/19 08/15/19 History Baclofen 20 mg PO HS 08/15/19 08/15/19 History Florastor 250 mg PO BID 08/15/19 08/15/19 History Linagliptin/Metformin HCl 1 tab PO BID 08/15/19 08/15/19 History [Jentadueto 2.5 mg-1000 mg Tab] Warfarin Sodium 2.5 mg PO MOWEFR 08/15/19 08/15/19 History Height: 1.52 m Weight: 79.946 kg Laboratory Results:: Laboratory Results - last 24 hr 08/14/19 16:35: Blood Type B Negative, Antibody Screen Negative, Crossmatch (AHG) See Detail 08/14/19 16:35: WBC 8.3, RBC 2.67 L, Hgb 6.6 L* D, Hct 22.0 L*, MCV 82.5, MCH 25.3 L, MCHC 30.6 L, RDW 17.1, Plt Count 283, MPV 8.0, Neut % (Auto) 67.8, Lymph % (Auto) 23.6, [place] % (Auto) 5.8, Eos % (Auto) 2.5, Baso % (Auto) 0.2, Neut # (Auto) 5.6, Lymph # (Auto) 2.0, [place] # (Auto) 0.5, Eos # (Auto) 0.2, Baso # (Auto) 0.0 08/14/19 16:35: PT 14.3 H, INR 1.40 H 08/14/19 16:35: Sodium 136, Potassium 4.5 D, Chloride 103, Carbon Dioxide 26, Anion Gap 11.5, BUN 16, Creatinine 1.10 H D, Estimated Creat Clear 74, Estimated GFR 52 L, Est GFR ( Amer) 63 D, Glucose 94, Calcium 8.6, Phosphorus 3.6, Magnesium 1.7, Total Bilirubin < 0.1 L, AST 29, ALT 28, Alkaline Phosphatase 62, Troponin I 0.33 H, Total Protein 6.6, Albumin 3.1 L, Globulin 3.5 H, Albumin/Globulin Ratio 0.9 L 08/14/19 16:35: Lactate 3.3 H 08/14/19 16:59: Specimen Source Right brachial, O2 % 21, ABG pH 7.49 H, ABG pCO2 31.8 L, ABG pO2 79.3 L, ABG HCO3 23.6, ABG Total CO2 24.6, ABG O2 Saturation 95, ABG Base Excess 0.2, [place] Test N/a 08/14/19 18:08: POC Glucose 89 08/14/19 20:55: POC Glucose 104 08/14/19 21:13: Lactate 1.6 08/14/19 21:18: Stool Occult Blood Negative 08/15/19 00:25: Random Gentamicin 12.0 08/15/19 00:45: POC Glucose 77 08/15/19 03:19: Hgb 10.0 L D, Hct 31.3 L 08/15/19 04:58: WBC 8.4, RBC 3.93 L D, Hgb 10.1 L, Hct 31.8 L, MCV 80.9 L, MCH 25.7 L, MCHC 31.8, RDW 16.8, Plt Count 233, MPV 8.1, Neut % (Auto) 78.1, Lymph % (Auto) 14.3, [place] % (Auto) 5.3, Eos % (Auto) 2.0, Baso % (Auto) 0.4, Neut # (Auto) 6.6, Lymph # (Auto) 1.2, [place] # (Auto) 0.5, Eos # (Auto) 0.2, Baso # (Auto) 0.0 08/15/19 04:58: Sodium 136, Potassium 3.9, Chloride 102, Carbon Dioxide 26, Anion Gap 11.9, BUN 12, Creatinine 0.80 D, Estimated Creat Clear 105, Estimated GFR 76, Est GFR ( Amer) 92 D, Glucose 135 H D, Calcium 8.1 L 08/15/19 04:58: POC Glucose 138 H 08/15/19 04:58: ESR > 140 H 08/15/19 04:58: Troponin I 0.23 H, C-Reactive Protein 87.3 H 08/15/19 09:09: Vancomycin Trough 17.1 H 08/15/19 09:28: POC Glucose 178 H Medical History: Reports:: Atherosclerotic Heart Disease, Cancer, Carotid Stenosis, Congestive Heart Failure, Coronary Artery Disease, Cerebrovascular Accident, Deep Vein Thrombosis, Depression, Diabetes Mellitus Type 2, Gall Bladder Disease, Heart Murmur, Hyperlipidemia, Hypertension, MRSA, Myocardial Infarction, Peripheral Artery Disease, Peripheral Vascular Disease, Renal Disease, Renal Insufficiency, Transient Ischemic Attacks (TIA), Urinary Tract Infection Denies:: Asthma, Chronic Obstructive Pulmonary Disease (COPD), Diabetes Mellitus Type 1, Internal Pacemaker, Lung Disease, Seizures Assessment and Plan (1) Lethargic Current visit: Yes Status: Acute Category: Medical Code(s): R53.83 - Other fatigue (2) Bradycardia Current visit: Yes Status: Acute Category: Medical Code(s): R00.1 - Bradycardia, unspecified (3) Elevated lactic acid level Current visit: Yes Status: Acute Category: Medical Code(s): R79.89 - Other specified abnormal findings of blood chemistry (4) Arterial insufficiency of lower extremity Current visit: No Status: Acute Category: Medical Code(s): I73.9 - Peripheral vascular disease, unspecified (5) Hypotension Current visit: No Status: Acute Qualifiers: Hypotension type: unspecified hypotension type Qualified Code(s): I95.9 - Hypotension, unspecified Category: Medical Code(s): I95.9 - Hypotension, unspecified (6) Anemia Current visit: No Status: Chronic Qualifiers: Anemia type: unspecified type Qualified Code(s): D64.9 - Anemia, unspecified Category: Medical Code(s): D64.9 - Anemia, unspecified (7) Coronary arteriosclerosis Current visit: No Status: Chronic Category: Medical Code(s): I25.10 - Atherosclerotic heart disease of [place] coronary artery without angina pectoris (8) Diabetes mellitus Current visit: No Status: Chronic Qualifiers: Diabetes mellitus type: type 2 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 use Diabetes mellitus complication status: with neurologic complications Diabetes mellitus complication detail: with polyneuropathy Qualified Code(s): E11.42 - Type 2 diabetes mellitus with diabetic polyneuropathy Category: Medical Code(s): E11.9 - Type 2 diabetes mellitus without complications (9) Hemiparesis affecting left side as late effect of cerebrovascular accident Current visit: No Status: Chronic Category: Medical Code(s): I69.354 - Hemiplegia and hemiparesis following cerebral infarction affecting left non- dominant side (10) History of CVA (cerebrovascular accident) Current visit: No Status: Chronic Category: Medical Code(s): Z86.73 - Personal history of transient ischemic attack (TIA), and cerebral infarction without residual deficits (11) History of left below knee amputation Current visit: No Status: Chronic Category: Medical Code(s): Z89.512 - Acquired absence of left leg below knee (12) Hypertensive heart disease without heart failure Current visit: No Status: Chronic Category: Medical Code(s): I11.9 - Hypertensive heart disease without heart failure (13) Left spastic hemiparesis Current visit: No Status: Chronic Category: Medical Code(s): G81.14 - Spastic hemiplegia affecting left nondominant side (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 Current visit: No Status: Chronic Category: Medical Code(s): Z79.01 - 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 (current) use of 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 (15) Peripheral arterial occlusive disease Current visit: No Status: Chronic Category: Medical Code(s): I77.9 - Disorder of arteries and arterioles, unspecified (16) Hypoxia Current visit: Yes Status: Acute Category: Medical Code(s): R09.02 - Hypoxemia (17) Troponin I above reference range Current visit: Yes Status: Acute Category: Medical Code(s): R79.89 - Other specified abnormal findings of blood chemistry (18) Status post transmetatarsal amputation of right foot Start date: 07/30/19 Current visit: Yes Status: Acute Category: Surgical Code(s): Z89.431 - Acquired absence of right foot (19) Discoloration of skin of foot Current visit: No Status: Acute Category: Medical Code(s): L81.9 - Disorder of pigmentation, unspecified - Assessment and plan all Dx Assessment and Plan for all problems:: BASED ON PATIENT FACTORS AND VANCOMYCIN TROUGH LEVEL OF 17.1, RECOMMEND CONTINUING CURRENT DOSE OF IV VANCOMYCIN (1,500MG EVERY 12 HOURS). PATIENT HAS BEEN RECEIVING THIS DOSE AT RETIREMENT. PHARMACY WILL CONTINUE TO MONITOR AND WILL ADJUST DOSE APPROPRIATE. -SANDHYA LUTHER, YASIRD
--- NOTE | 2019-08-15 16:11 | Electrocardiograph Report ---
APPROVED REPORT Exam: Resting ECG HR:84 bpm ECG Measurements Heart Rate 84 AXES MA 142 P 13 QRSd 78 QRS 8 QT 422 T112 QTc 498 <Conclusion> Normal sinus rhythm Poor r wave progression unchanged from prior Abnormal ECG Electronically signed by : Sabino Wilder, 08/15/2019 16:11:27
[2019-08-16 06:04] LABS: Basophils % 0.4 % (0.1-2.0); Eosinophils # 0.2 K/mm3 (0.0-0.4); Hematocrit 32.4 % (37.0-47.0); Hemoglobin 10.1 g/dL (12.2-16.2); Lymphocytes # 1.3 K/mm3 (0.7-4.5); Lymphocytes % 21.3 % (10-50); Mean Corpuscular HGB Conc 31.1 g/dL (31.8-35.4); Mean Corpuscular Volume 83.4 fl (81-99); Mean Platelet Volume 8.4 fl (7.4-10.4); Monocytes # 0.4 K/mm3 (0.1-1.0); Monocytes % 7.4 % (1.7-9.3); Neutrophils # 4.1 K/mm3 (1.8-7.8); Neutrophils % 67.9 % (37.0-80.0); Platelet Count 231 K/mm3 (142-424); Red Blood Count 3.88 M/mm3 (4.20-5.40); Red Cell Distribution Width 17.3 % (11.5-17.5)
[2019-08-16 06:16] LABS: Anion Gap 8.8 mEq/L (5-15); Calcium 8.4 mg/dl (8.4-10.2)
--- NOTE | 2019-08-16 08:15 | Progress Note ---
<Irina Gil - Last Filed: 08/16/19 08:12> Internal Medicine - PN: Subj *Date: 08/16/19 *Time: 08:12 Interval history: Patient states she feels much better today. She slept well last night and is eating breakfast this morning. She denies any pain. Her troponin is trending down and a repeat chest x-ray showed improved CHF. She has been seen by Dr. Calloway this morning and she debrided her foot and took a new wound culture. She is planning to place a wound VAC and recommends continued antibiotics. Exam Vital signs and Labs for Last 24 Hours: Temp Pulse Resp BP Pulse Ox 98.4 F 77 16 148/76 H 98 08/16/19 07:55 08/16/19 07:55 08/16/19 07:55 08/16/19 07:55 08/16/19 07:55 Laboratory Results - last 24 hr 08/15/19 04:58: ESR > 140 H 08/15/19 04:58: Troponin I 0.23 H, C-Reactive Protein 87.3 H 08/15/19 09:09: Random Gentamicin 2.9 08/15/19 09:09: Vancomycin Trough 17.1 H 08/15/19 09:28: POC Glucose 178 H 08/15/19 11:50: POC Glucose 221 H 08/15/19 16:36: POC Glucose 273 H 08/15/19 20:05: POC Glucose 352 H* 08/16/19 04:14: POC Glucose 234 H 08/16/19 05:46: WBC 6.0 D, RBC 3.88 L, Hgb 10.1 L, Hct 32.4 L, MCV 83.4, MCH 26.0 L, MCHC 31.1 L, RDW 17.3, Plt Count 231, MPV 8.4, Neut % (Auto) 67.9, Lymph % (Auto) 21.3, [place] % (Auto) 7.4, Eos % (Auto) 3.0, Baso % (Auto) 0.4, Neut # (Auto) 4.1, Lymph # (Auto) 1.3, [place] # (Auto) 0.4, Eos # (Auto) 0.2, Baso # (Auto) 0.0 08/16/19 05:46: Sodium 133 L, Potassium 3.8, Chloride 99, Carbon Dioxide 29, Anion Gap 8.8, BUN 11, Creatinine 0.80, Estimated Creat Clear 102, Estimated GFR 76, Est GFR ( Amer) 92, Glucose 237 H, Calcium 8.4 I & O for Last 24 hours: Intake & Output 08/13/19 08/14/19 08/15/19 08/16/19 11:59 11:59 11:59 11:59 Intake Total 911 / 911 2879 / 2879 Output Total 900 / 900 2200 / 2200 Balance 679 / 679 Weight 176 lb 4 oz 170 lb 8 oz - Constitutional no acute distress - *Routine Respiratory Exam Present: CTA bilaterally - *Routine Cardiovascular Exam Present: RRR - *Routine Abdominal Exam Present: soft, normoactive bowel sounds. Absent: tenderness - *Routine Extremities Exam Absent: edema Comments: right foot has been debrided by Dr. Calloway and a few of the jeremy have been removed. No purulent fluid was expressed. - *Routine Neurological Exam Present: alert, oriented X3 Assessment and Plan (1) Lethargic Current visit: Yes Status: Acute Category: Medical Code(s): R53.83 - Other fatigue (2) Bradycardia Current visit: Yes Status: Acute Category: Medical Code(s): R00.1 - Bradycardia, unspecified (3) Elevated lactic acid level Current visit: Yes Status: Acute Category: Medical Code(s): R79.89 - Other specified abnormal findings of blood chemistry (4) Arterial insufficiency of lower extremity Current visit: No Status: Acute Category: Medical Code(s): I73.9 - Peripheral vascular disease, unspecified (5) Hypotension Current visit: No Status: Acute Qualifiers: Hypotension type: unspecified hypotension type Qualified Code(s): I95.9 - Hypotension, unspecified Category: Medical Code(s): I95.9 - Hypotension, unspecified (6) Anemia Current visit: No Status: Chronic Qualifiers: Anemia type: unspecified type Qualified Code(s): D64.9 - Anemia, unspecified Category: Medical Code(s): D64.9 - Anemia, unspecified (7) Coronary arteriosclerosis Current visit: No Status: Chronic Category: Medical Code(s): I25.10 - Atherosclerotic heart disease of [place] coronary artery without angina pectoris (8) Diabetes mellitus Current visit: No Status: Chronic Qualifiers: Diabetes mellitus type: type 2 Diabetes mellitus fdc insulin use: without associate chief nurse use Diabetes mellitus complication status: with neurologic complications Diabetes mellitus complication detail: with polyneuropathy Qualified Code(s): E11.42 - Type 2 diabetes mellitus with diabetic polyneuropathy Category: Medical Code(s): E11.9 - Type 2 diabetes mellitus without co mplications (9) Hemiparesis affecting left side as late effect of cerebrovascular accident Current visit: No Status: Chronic Category: Medical Code(s): I69.354 - Hemiplegia and hemiparesis following cerebral infarction affecting left non- dominant side (10) History of CVA (cerebrovascular accident) Current visit: No Status: Chronic Category: Medical Code(s): Z86.73 - Personal history of transient ischemic attack (TIA), and cerebral infarction without residual deficits (11) History of left below knee amputation Current visit: No Status: Chronic Category: Medical Code(s): Z89.512 - Acquired absence of left leg below knee (12) Hypertensive heart disease without heart failure Current visit: No Status: Chronic Category: Medical Code(s): I11.9 - Hypertensive heart disease without heart failure (13) Left spastic hemiparesis Current visit: No Status: Chronic Category: Medical Code(s): G81.14 - Spastic hemiplegia affecting left nondominant side (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 Current visit: No Status: Chronic Category: Medical Code(s): Z79.01 - correction (current) use of 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 (15) Peripheral arterial occlusive disease Current visit: No Status: Chronic Category: Medical Code(s): I77.9 - Disorder of arteries and arterioles, unspecified (16) Hypoxia Current visit: Yes Status: Acute Category: Medical Code(s): R09.02 - Hypoxemia (17) Troponin I above reference range Current visit: Yes Status: Acute Category: Medical Code(s): R79.89 - Other specified abnormal findings of blood chemistry (18) Status post transmetatarsal amputation of right foot Start date: 07/30/19 Current visit: Yes Status: Acute Category: Surgical Code(s): Z89.431 - Acquired absence of right foot (19) Discoloration of skin of foot Current visit: No Status: Acute Category: Medical Code(s): L81.9 - Disorder of pigmentation, unspecified (20) SIRS (systemic inflammatory response syndrome) Current visit: Yes Status: Acute Category: Medical Code(s): R65.10 - Systemic inflammatory response syndrome (SIRS) of non-infectious origin without acute organ dysfunction - Assessment and plan all Dx Assessment and Plan for all problems:: Patient's H&H is stable and clinically she is much better today. Dr. Calloway is planning to place a wound VAC and patient will need continued IV antibiotics. Will discuss further care with Dr. Alva. <Shawn Alva - Last Filed: 08/16/19 09:08> Internal Medicine - PN: Subj *Date: 08/16/19 *Time: 09:06 Exam Vital signs and Labs for Last 24 Hours: Temp Pulse Resp BP Pulse Ox 98.4 F 77 16 148/76 H 98 08/16/19 07:55 08/16/19 07:55 08/16/19 07:55 08/16/19 07:55 08/16/19 07:55 Laboratory Results - last 24 hr 08/15/19 09:09: Random Gentamicin 2.9 08/15/19 09:09: Vancomycin Trough 17.1 H 08/15/19 09:28: POC Glucose 178 H 08/15/19 11:50: POC Glucose 221 H 08/15/19 16:36: POC Glucose 273 H 08/15/19 20:05: POC Glucose 352 H* 08/16/19 04:14: POC Glucose 234 H 08/16/19 05:46: PT 10.6, INR 1.04 08/16/19 05:46: WBC 6.0 D, RBC 3.88 L, Hgb 10.1 L, Hct 32.4 L, MCV 83.4, MCH 26.0 L, MCHC 31.1 L, RDW 17.3, Plt Count 231, MPV 8.4, Neut % (Auto) 67.9, Lymph % (Auto) 21.3, [place] % (Auto) 7.4, Eos % (Auto) 3.0, Baso % (Auto) 0.4, Neut # (Auto) 4.1, Lymph # (Auto) 1.3, [place] # (Auto) 0.4, Eos # (Auto) 0.2, Baso # (Auto) 0.0 08/16/19 05:46: Sodium 133 L, Potassium 3.8, Chloride 99, Carbon Dioxide 29, Anion Gap 8.8, BUN 11, Creatinine 0.80, Estimated Creat Clear 102, Estimated GFR 76, Est GFR ( Amer) 92, Glucose 237 H, Calcium 8.4 I & O for Last 24 hours: Intake & Output 08/13/19 08/14/19 08/15/19 08/16/19 23:59 23:59 23:59 23:59 Intake Total 0 2280 / 2280 1510 / 1510 Output Total 1075 / 1800 2024 Balance 0 1205 / 480 -515 / -515 Weight 171 lb 8 oz 176 lb 5.917 oz 170 lb 8 oz Assessment and Plan (1) Lethargic Current visit: Yes Status: Acute Category: Medical Code(s): R53.83 - Other fatigue (2) Bradycardia Current visit: Yes Status: Acute Category: Medical Code(s): R00.1 - Bradycardia, unspecified (3) Elevated lactic acid level Current visit: Yes Status: Acute Category: Medical Code(s): R79.89 - Other specified abnormal findings of blood chemistry (4) Arterial insufficiency of lower extremity Current visit: No Status: Acute Category: Medical Code(s): I73.9 - Peripheral vascular disease, unspecified (5) Hypotension Current visit: No Status: Acute Qualifiers: Hypotension type: unspecified hypotension type Qualified Code(s): I95.9 - Hypotension, unspecified Category: Medical Code(s): I95.9 - Hypotension, unspecified (6) Anemia Current visit: No Status: Chronic Qualifiers: Anemia type: unspecified type Qualified Code(s): D64.9 - Anemia, unspecified Category: Medical Code(s): D64.9 - Anemia, unspecified (7) Coronary arteriosclerosis Current visit: No Status: Chronic Category: Medical Code(s): I25.10 - Atherosclerotic heart disease of [place] coronary artery without angina pectoris (8) Diabetes mellitus Current visit: No Status: Chronic Qualifiers: Diabetes mellitus type: type 2 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 use: without associate chief nurse use Diabetes mellitus complication status: with neurologic complications Diabetes mellitus complication detail: with polyneuropathy Qualified Code(s): E11.42 - Type 2 diabetes mellitus with diabetic polyneuropathy Category: Medical Code(s): E11.9 - Type 2 diabetes mellitus without comp lications (9) Hemiparesis affecting left side as late effect of cerebrovascular accident Current visit: No Status: Chronic Category: Medical Code(s): I69.354 - Hemiplegia and hemiparesis following cerebral infarction affecting left non- dominant side (10) History of CVA (cerebrovascular accident) Current visit: No Status: Chronic Category: Medical Code(s): Z86.73 - Personal history of transient ischemic attack (TIA), and cerebral infarction without residual deficits (11) History of left below knee amputation Current visit: No Status: Chronic Category: Medical Code(s): Z89.512 - Acquired absence of left leg below knee (12) Hypertensive heart disease without heart failure Current visit: No Status: Chronic Category: Medical Code(s): I11.9 - Hypertensive heart disease without heart failure (13) Left spastic hemiparesis Current visit: No Status: Chronic Category: Medical Code(s): G81.14 - Spastic hemiplegia affecting left nondominant side (14) correction 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 Current visit: No Status: Chronic Category: Medical Code(s): Z79.01 - correction (current) use of 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 (15) Peripheral arterial occlusive disease Current visit: No Status: Chronic Category: Medical Code(s): I77.9 - Disorder of arteries and arterioles, unspecified (16) Hypoxia Current visit: Yes Status: Acute Category: Medical Code(s): R09.02 - Hypoxemia (17) Troponin I above reference range Current visit: Yes Status: Acute Category: Medical Code(s): R79.89 - Other specified abnormal findings of blood chemistry (18) Status post transmetatarsal amputation of right foot Start date: 07/30/19 Current visit: Yes Status: Acute Category: Surgical Code(s): Z89.431 - Acquired absence of right foot (19) Discoloration of skin of foot Current visit: No Status: Acute Category: Medical Code(s): L81.9 - Disorder of pigmentation, unspecified (20) Sepsis Current visit: Yes Status: Acute Qualifiers: Severe sepsis shock status: without septic shock Category: Medical Code(s): A41.9 - Sepsis, unspecified organism - Assessment and plan all Dx Assessment and Plan for all problems:: Saw patient, agree with above note.
--- NOTE | 2019-08-16 08:15 | Progress Note ---
Subjective Date: 08/16/19 Time: 07:45 Principal diagnosis: Right foot gangrene Interval history: Patient looks and states she feels much improved today. She is resting co mfortably bedside eating breakfast. She denies pain to the right foot. PN: Obj Ex Vital signs: Temp Pulse Resp BP Pulse Ox 98.4 F 77 16 148/76 H 98 08/16/19 07:55 08/16/19 07:55 08/16/19 07:55 08/16/19 07:55 08/16/19 07:55 - Constitutional no acute distress, obese, chronically ill appearing - Routine HEENT Exam Head: Present: normocephalic - Routine Neck Exam Present: supple - Routine Respiratory Exam Absent: respiratory distress - Routine Cardiovascular Exam Present: RRR - Routine Abdominal Exam Absent: guarding - Routine Extremities Exam Present: edema, amputation (R TMA, L BKA). Absent: normal capillary refill - Detailed Lower Extremity Exam Top foot image: 1 - Right TMA. Jeremy and sutures intact to right TMA and CASSANDRA incision sites. There is a central area of no jeremy, measuring 3.2 x 2.1 x 2cm. No purulence. Erythema and eccyhmosis localized to TMA incision. The skin flap is dusky and c rispy, but inner tissue mosit. Gangrenous changes with dusky discoloration noted. There is no drainage, no ascending cellulitis. No POP. - Routine Back/Spine/Pelvis Exam Back/Spine: Absent: CVA tenderness - Routine Skin Exam Present: erythema, dry, gangrene - Routine Neurological Exam Present: sensory deficit Progress Note: A&P (1) Lethargic Status: Acute Current Visit: Yes (2) Bradycardia Status: Acute Current Visit: Yes (3) Elevated lactic acid level Status: Acute Current Visit: Yes (4) Arterial insufficiency of lower extremity Status: Acute Current Visit: No (5) Hypotension Status: Acute Current Visit: No (6) Anemia Status: Chronic Current Visit: No (7) Coronary arteriosclerosis Status: Chronic Current Visit: No (8) Diabetes mellitus Status: Chronic Current Visit: No (9) Hemiparesis affecting left side as late effect of cerebrovascular accident Status: Chronic Current Visit: No (10) History of CVA (cerebrovascular accident) Status: Chronic Current Visit: No (11) History of left below knee amputation Status: Chronic Current Visit: No (12) Hypertensive heart disease without heart failure Status: Chronic Current Visit: No (13) Left spastic hemiparesis Status: Chronic Current Visit: No (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 Status: Chronic Current Visit: No (15) Peripheral arterial occlusive disease Status: Chronic Current Visit: No (16) Hypoxia Status: Acute Current Visit: Yes (17) Troponin I above reference range Status: Acute Current Visit: Yes (18) Status post transmetatarsal amputation of right foot Status: Acute Current Visit: Yes (19) Discoloration of skin of foot Status: Acute Current Visit: No Assessment and Plan for All Diagnoses:: 07/30/19: s/p right transmetatarsal amputation (TMA), tendo Achilles lengthening (CASSANDRA) POD # 2w, 3d 07/30/19, intra-op right toe bone: Skin and subcutaneous tissue with gangrenous necrosis, extending to the surgical margin. Underlying bone with osteonecrosis, negative for acute osteomyelitis. Intra-op bone, right foot metatarsal margin: Fragments of bone, negative for acute osteomyelitis 07/30/19, wound culture right 4th toe: Streptococcus sanguinus, GPC 07/30/19, bone culture right 2nd toe: Staphylococcus epidermidis, Kingella denitrificans S. epidermidis: MRSA and resistant to erythromycin, oxacillin, penicillin. Susceptible to clindamycin, daptomycin, gentamicin, rifampin, tetracycline and vancomycin New wound culture, right foot 08/16/19: pending Bedside dressing and debridement performed today. Dressing removed. There was no purulence noted. Utilizing a 15 blade and forceps central sutures removed where the jeremy had been removed yesterday. Hemostat used to probe the area. There is no deep sinus tracts noted. The central area measured approximately 3.2 x 2.1 x 2cm. The area was flushed with normal saline and betadine. 15 blade and pickups used to sharply excisionally debride the moist tissue and cross moon the crispy gangrene flap. Skin was cleansed with Betadine. Betadine soaked 4x4's packed into flap, then betadine 4x4's applied then dry 4x4's, Kerlex and Frank were placed to the foot. Patient is to keep this dressing clean, dry, and intact; do not get wet in shower. Minimize weight bearing. Elevate and Motrin for pain and swelling. Hold ice. I did discuss x-rays taken 08/15/[address] Flynn yesterday. No gas noted and no changes that would indicate osteomyelitis Discussed if skin does necrosis and , I can revise the TMA skin flap. Discussed the use of a wound vac. Continue to monitor and do daily dressing changes to dry out incision until vac applied. No plans for surgical intervention at this time. Plan: 1. Daily dressing changes: Betadine soaked packing and 4x4's, then dry 4x4's, K erlex and Frank until wound vac applied then -Wound vac to right foot @125mmHg medium continuous. VAC changes 3 times weekly. 2. NWB to right foot, unless to transition to wheelchair (use fracture boot) 3. Continue IV Abx, PICC x 4 more weeks 4. Consult wound care for application of wound VAC. If that needs to be stopped while the patient is transferred back to a SNF or home then resume dressing changes as above. [facility] vs [facility] Orders: -PICC, IV Vanco (pharm to dose) x 4 more weeks for right foot infection -Weekly CBC, ESR, CRP to trend infection markers -Daily dressing changes to right foot: cleanse skin with wound carbon lamp cleaner or Betadine, and then dry thoroughly. Apply betadine soaked 4x4's, then dry 4x4's, kerlix and secure with tape or light Frank bandage. Avoid compression -Wound vac re-applied at [facility] vs [facility]. Wound vac to right foot @125mmHg medium continuous. VAC changes 3 times weekly. -NWB to RLE. Okay for physical therapy for gait training and transitions to bedside commode -Must wear fracture boot when in wheelchair and out of room (protect posterior incision sites) -Okay to wear flat post op shoe in bed or in room
[2019-08-16 08:39] LABS: Prothrombin Time 10.6 seconds (9.4-11.8)
[2019-08-16 08:40] LABS: INR 1.04 (0.9-1.1)
--- NOTE | 2019-08-16 10:41 | Pharmacy Consult Notes ---
- Pharmacy Consult Date: 08/16/19 Time: 10:38 Referring provider: DR. CAVAZOS Reason for Consult:: GENTAMICIN LEVELS Allergies and ADEs:: Allergies Allergy/AdvReac Type Severity Reaction Status Date / Time azithromycin Allergy Intermediate S-DIFF. Verified 08/07/19 13:15 BREATHING daptomycin [DAPTOMYCIN] Allergy Intermediate I-RASH/ITCH Verified 08/07/19 13:15 ING levofloxacin Allergy Intermediate I-RASH Verified 08/07/19 13:15 Penicillins Allergy Intermediate I-HIVES Verified 08/07/19 13:15 Home Medications:: Home Medications Medication Instructions Recorded Confirmed Type amiloride 5 mg tablet 5 mg PO DAILY 09/22/17 08/15/19 History aspirin 25 mg-dipyridamole 200 mg 1 cap PO BID 09/22/17 08/15/19 History capsule,ext.release 12 hr multiphase baclofen 10 mg tablet 10 mg PO DAILY 09/22/17 08/15/19 History clopidogrel 75 mg tablet 75 mg PO DAILY 09/22/17 08/15/19 History glimepiride 2 mg tablet 2 mg PO DAILY 09/22/17 08/15/19 History metolazone 5 mg tablet 5 mg PO DAILY 09/22/17 08/15/19 History Citalopram Hydrobromide [Celexa 20 mg PO DAILY 11/20/17 08/15/19 History 20mg Tablet] Donepezil HCl [Aricept 5mg 5 mg PO HS 04/14/18 08/15/19 History Tablet] Potassium Chloride 60 meq PO TID 04/14/18 08/15/19 History Spironolactone [Aldactone 25mg 25 mg PO DAILY 04/14/18 08/15/19 History Tab] Furosemide [Furosemide 40MG tAB] 40 mg PO DAILY 04/15/18 08/15/19 History warfarin 5 mg tablet 5 mg PO SUTUTHSA tab 08/17/18 08/15/19 History Metoprolol Tartrate [Lopressor 12.5 mg PO DAILY 05/09/19 08/15/19 History 25mg tablet] Loratadine [Claritin] 10 mg PO DAILY 05/10/19 08/15/19 History Cholecalciferol (Vitamin D3) 4,000 units PO DAILY 07/23/19 08/15/19 History [Vitamin D3] Insulin Lispro [HumaLOG 100 0 unit SQ DIRECTED 07/23/19 08/15/19 History units/mL 3mL vial (SSI)] Insulin Detemir [Levemir 40 unit SQ BID #0 08/02/19 08/15/19 Rx 100units/mL 3mL flexpen] Vancomycin/0.9 % Sod Chloride 1.5 gm IV DAILY 08/14/19 08/15/19 History [Vanco 1.5 gm/500 ml-0.9% NaCl] Acetaminophen 1,000 mg PO Q6HP PRN 08/15/19 08/15/19 History Atorvastatin 40mg Tab 40 mg PO HS 08/15/19 08/15/19 History Baclofen 20 mg PO HS 08/15/19 08/15/19 History Florastor 250 mg PO BID 08/15/19 08/15/19 History Linagliptin/Metformin HCl 1 tab PO BID 08/15/19 08/15/19 History [Jentadueto 2.5 mg-1000 mg Tab] Warfarin Sodium 2.5 mg PO MOWEFR 08/15/19 08/15/19 History Height: 1.52 m Weight: 77.337 kg Laboratory Results:: Laboratory Results - last 24 hr 08/15/19 09:09: Random Gentamicin 2.9 08/15/19 11:50: POC Glucose 221 H 08/15/19 16:36: POC Glucose 273 H 08/15/19 20:05: POC Glucose 352 H* 08/16/19 04:14: POC Glucose 234 H 08/16/19 05:46: PT 10.6, INR 1.04 08/16/19 05:46: WBC 6.0 D, RBC 3.88 L, Hgb 10.1 L, Hct 32.4 L, MCV 83.4, MCH 26.0 L, MCHC 31.1 L, RDW 17.3, Plt Count 231, MPV 8.4, Neut % (Auto) 67.9, Lymph % (Auto) 21.3, [place] % (Auto) 7.4, Eos % (Auto) 3.0, Baso % (Auto) 0.4, Neut # (Auto) 4.1, Lymph # (Auto) 1.3, [place] # (Auto) 0.4, Eos # (Auto) 0.2, Baso # (Auto) 0.0 08/16/19 05:46: Sodium 133 L, Potassium 3.8, Chloride 99, Carbon Dioxide 29, Anion Gap 8.8, BUN 11, Creatinine 0.80, Estimated Creat Clear 102, Estimated GFR 76, Est GFR ( Amer) 92, Glucose 237 H, Calcium 8.4 Medical History: Reports:: Atherosclerotic Heart Disease, Cancer, Carotid Stenosis, Congestive Heart Failure, Coronary Artery Disease, Cerebrovascular Accident, Deep Vein Thrombosis, Depression, Diabetes Mellitus Type 2, Gall Bladder Disease, Heart Murmur, Hyperlipidemia, Hypertension, MRSA, Myocardial Infarction, Peripheral Artery Disease, Peripheral Vascular Disease, Renal Disease, Renal Insufficiency, Transient Ischemic Attacks (TIA), Urinary Tract Infection Denies:: Asthma, Chronic Obstructive Pulmonary Disease (COPD), Diabetes Mellitus Type 1, Internal Pacemaker, Lung Disease, Seizures Assessment and Plan (1) Lethargic Current visit: Yes Status: Acute Category: Medical Code(s): R53.83 - Other fatigue (2) Bradycardia Current visit: Yes Status: Acute Category: Medical Code(s): R00.1 - Bradycardia, unspecified (3) Elevated lactic acid level Current visit: Yes Status: Acute Category: Medical Code(s): R79.89 - Other specified abnormal findings of blood chemistry (4) Arterial insufficiency of lower extremity Current visit: No Status: Acute Category: Medical Code(s): I73.9 - Peripheral vascular disease, unspecified (5) Hypotension Current visit: No Status: Acute Qualifiers: Hypotension type: unspecified hypotension type Qualified Code(s): I95.9 - Hypotension, unspecified Category: Medical Code(s): I95.9 - Hypotension, unspecified (6) Anemia Current visit: No Status: Chronic Qualifiers: Anemia type: unspecified type Qualified Code(s): D64.9 - Anemia, unspecified Category: Medical Code(s): D64.9 - Anemia, unspecified (7) Coronary arteriosclerosis Current visit: No Status: Chronic Category: Medical Code(s): I25.10 - Atherosclerotic heart disease of [place] coronary artery without angina pectoris (8) Diabetes mellitus Current visit: No Status: Chronic Qualifiers: Diabetes mellitus type: type 2 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 Diabetes mellitus complication status: with neurologic complications Diabetes mellitus complication detail: with polyneuropathy Qualified Code(s): E11.42 - Type 2 diabetes mellitus with diabetic polyneuropathy Category: Medical Code(s): E11.9 - Type 2 diabetes mellitus without complications (9) Hemiparesis affecting left side as late effect of cerebrovascular accident Current visit: No Status: Chronic Category: Medical Code(s): I69.354 - Hemiplegia and hemiparesis following cerebral infarction affecting left non- dominant side (10) History of CVA (cerebrovascular accident) Current visit: No Status: Chronic Category: Medical Code(s): Z86.73 - Personal history of transient ischemic attack (TIA), and cerebral infarction without residual deficits (11) History of left below knee amputation Current visit: No Status: Chronic Category: Medical Code(s): Z89.512 - Acquired absence of left leg below knee (12) Hypertensive heart disease without heart failure Current visit: No Status: Chronic Category: Medical Code(s): I11.9 - Hypertensive heart disease without heart failure (13) Left spastic hemiparesis Current visit: No Status: Chronic Category: Medical Code(s): G81.14 - Spastic hemiplegia affecting left nondominant side (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 Current visit: No Status: Chronic Category: Medical Code(s): Z79.01 - salvage determiner (current) use of 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 (15) Peripheral arterial occlusive disease Current visit: No Status: Chronic Category: Medical Code(s): I77.9 - Disorder of arteries and arterioles, unspecified (16) Hypoxia Current visit: Yes Status: Acute Category: Medical Code(s): R09.02 - Hypoxemia (17) Troponin I above reference range Current visit: Yes Status: Acute Category: Medical Code(s): R79.89 - Other specified abnormal findings of blood chemistry (18) Status post transmetatarsal amputation of right foot Start date: 07/30/19 Current visit: Yes Status: Acute Category: Surgical Code(s): Z89.431 - Acquired absence of right foot (19) Discoloration of skin of foot Current visit: No Status: Acute Category: Medical Code(s): L81.9 - Disorder of pigmentation, unspecified (20) Sepsis Current visit: Yes Status: Acute Qualifiers: Severe sepsis shock status: without septic shock Category: Medical Code(s): A41.9 - Sepsis, unspecified organism - Assessment and plan all Dx Assessment and Plan for all problems:: GENTAMICIN LEVELS: 2.5-HOUR POST-INFUSION = 12.0 CALCULATED PEAK = 17.5 MCG/ML 11-HOUR POST-INFUSION: 2.9 CALCULATED TROUGH = 0.33 MCG/ML BASED ON LEVELS AND PATIENT FACTORS, RECOMMEND CONTINUING GENTAMICIN 400 MG IV Q24H. WILL OBTAIN A 12-HOUR POST-INFUSION LEVEL TOMORROW MORNING AND WILL MONITOR DAILY.
[2019-08-16 12:20] LABS: Microscopic, Urine URINE MICROSCOPIC (MICROSCOPIC)
[2019-08-16 12:23] LABS: Appearance,Urine CLEAR (Clear); Bilirubin,Urine Negative (Negative); Blood, Urine Negative (Negative); Color,Urine YELLOW (Yellow); Glucose,Urine (UA) 2+ (Negative); Ketones,Urine Negative (Negative); Leukocyte Esterase,Urine Negative (Negative); PH,Urine 5.5 (5.0-8.5); Protein,Urine Negative (Negative); Specific Gravity, Urine 1.015 (1.005-1.030); Urobilinogen,Urine 0.2 EU/dl (0.2)
[2019-08-16 12:41] LABS: RBC,Urine Occasional #/hpf (0-3)
[2019-08-17 07:00] LABS: Basophils % 0.4 % (0.1-2.0); Eosinophils # 0.2 K/mm3 (0.0-0.4); Eosinophils % 3.6 % (0.1-12.0); Hematocrit 33.1 % (37.0-47.0); Hemoglobin 10.6 g/dL (12.2-16.2); Lymphocytes # 1.2 K/mm3 (0.7-4.5); Lymphocytes % 19.4 % (10-50); Mean Corpuscular Volume 81.4 fl (81-99); Mean Platelet Volume 9.1 fl (7.4-10.4); Monocytes # 0.4 K/mm3 (0.1-1.0); Monocytes % 5.9 % (1.7-9.3); Neutrophils # 4.5 K/mm3 (1.8-7.8); Neutrophils % 70.7 % (37.0-80.0); Platelet Count 295 K/mm3 (142-424); Red Blood Count 4.07 M/mm3 (4.20-5.40); Red Cell Distribution Width 16.8 % (11.5-17.5); White Blood Count 6.4 K/mm3 (4.8-10.8)
--- NOTE | 2019-08-17 07:57 | Progress Note ---
<Irina Gil - Last Filed: 08/17/19 07:53> Internal Medicine - PN: Subj *Date: 08/17/19 *Time: 07:53 Interval history: Patient states she feels well this morning. She had a wound VAC placed on her foot last night and denies any pain. She states she slept well and ate a good breakfast this morning. Exam Vital signs and Labs for Last 24 Hours: Temp Pulse Resp BP Pulse Ox 98.9 F 73 16 145/60 H 98 08/17/19 07:43 08/17/19 07:43 08/17/19 07:43 08/17/19 07:43 08/17/19 07:43 Laboratory Results - last 24 hr 08/16/19 05:46: PT 10.6, INR 1.04 08/16/19 11:22: POC Glucose 374 H* 08/16/19 12:10: Urine Color Yellow, Urine Appearance Clear, Urine pH 5.5, Ur Specific [place] 1.015, Urine Protein Negative, Urine Glucose (UA) 2+, Urine Ketones Negative, Urine Blood Negative, Urine Nitrate Negative, Urine Bilirubin Negative, Urine Urobilinogen 0.2, Ur Leukocyte Esterase Negative, Urine RBC Occasional, Urine WBC None, Ur Squamous Epith Cells 3-5, Urine Bacteria None 08/16/19 16:30: POC Glucose 353 H* 08/16/19 20:37: POC Glucose 376 H* 08/17/19 05:59: POC Glucose 323 H* 08/17/19 06:50: WBC 6.4, RBC 4.07 L, Hgb 10.6 L, Hct 33.1 L, MCV 81.4, MCH 26.0 L, MCHC 32.0, RDW 16.8, Plt Count 295 D, MPV 9.1, Neut % (Auto) 70.7, Lymph % (Auto) 19.4, [place] % (Auto) 5.9, Eos % (Auto) 3.6, Baso % (Auto) 0.4, Neut # (Auto) 4.5, Lymph # (Auto) 1.2, [place] # (Auto) 0.4, Eos # (Auto) 0.2, Baso # (Auto) 0.0 I & O for Last 24 hours: Intake & Output 08/14/19 08/15/19 08/16/1908/17/20 11:59 11:59 11:59 11:59 Intake Total 911 / 911 2879 / 2879 960 / 960 Output Total 900 / 900 2200 / 2200 Balance 679 / 679 960 / 960 Weight 176 lb 4 oz 170 lb 8 oz 172 lb 2 oz Microbiology Reports for the Last 24 Hours: Microbiology 08/16/19 08:00 Foot,Right - Drainage Gram Stain - Final 08/16/19 08:00 Foot,Right - Drainage Wound Culture - Preliminary 08/14/19 16:35 Blood Blood Culture - Preliminary NO GROWTH AFTER 48 HOURS 08/14/19 16:35 Blood Blood Culture - Preliminary NO GROWTH AFTER 48 HOURS - Constitutional no acute distress - *Routine Respiratory Exam Present: CTA bilaterally - *Routine Cardiovascular Exam Present: RRR - *Routine Abdominal Exam Present: soft, normoactive bowel sounds. Absent: tenderness - *Routine Extremities Exam Absent: edema - *Routine Skin Exam Present: warm. Absent: rash Comments: right foot in a dressing with wound vac in place - *Routine Neurological Exam Present: alert, oriented X3 Assessment and Plan (1) Lethargic Current visit: Yes Status: Acute Category: Medical Code(s): R53.83 - Other fatigue (2) Bradycardia Current visit: Yes Status: Acute Category: Medical Code(s): R00.1 - Bradycardia, unspecified (3) Elevated lactic acid level Current visit: Yes Status: Acute Category: Medical Code(s): R79.89 - Other specified abnormal findings of blood chemistry (4) Arterial insufficiency of lower extremity Current visit: No Status: Acute Category: Medical Code(s): I73.9 - Peripheral vascular disease, unspecified (5) Hypotension Current visit: No Status: Acute Qualifiers: Hypotension type: unspecified hypotension type Qualified Code(s): I95.9 - Hypotension, unspecified Category: Medical Code(s): I95.9 - Hypotension, unspecified (6) Anemia Current visit: No Status: Chronic Qualifiers: Anemia type: unspecified type Qualified Code(s): D64.9 - Anemia, unspecified Category: Medical Code(s): D64.9 - Anemia, unspecified (7) Coronary arteriosclerosis Current visit: No Status: Chronic Category: Medical Code(s): I25.10 - Atherosclerotic heart disease of [place] coronary artery without angina pectoris (8) Diabetes mellitus Current visit: No Status: Chronic Qualifiers: Diabetes mellitus type: type 2 Diabetes mellitus senior care insulin use: wi thout senior care use Diabetes mellitus complication status: with neurologic complications Diabetes mellitus complication detail: with polyneuropathy Qualified Code(s): E11.42 - Type 2 diabetes mellitus with diabetic polyneuropathy Category: Medical Code(s): E11.9 - Type 2 diabetes mellitus without complications (9) Hemiparesis affecting left side as late effect of cerebrovascular accident Current visit: No Status: Chronic Category: Medical Code(s): I69.354 - Hemiplegia and hemiparesis following cerebral infarction affecting left non-dom inant side (10) History of CVA (cerebrovascular accident) Current visit: No Status: Chronic Category: Medical Code(s): Z86.73 - Personal history of transient ischemic attack (TIA), and cerebral infarction without residual deficits (11) History of left below knee amputation Current visit: No Status: Chronic Category: Medical Code(s): Z89.512 - Acquired absence of left leg below knee (12) Hypertensive heart disease without heart failure Current visit: No Status: Chronic Category: Medical Code(s): I11.9 - Hypertensive heart disease without heart failure (13) Left spastic hemiparesis Current visit: No Status: Chronic Category: Medical Code(s): G81.14 - Spastic hemiplegia affecting left nondominant side (14) snf 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 Current visit: No Status: Chronic Category: Medical Code(s): Z79.01 - snf (current) use of 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 (15) Peripheral arterial occlusive disease Current visit: No Status: Chronic Category: Medical Code(s): I77.9 - Disorder of arteries and arterioles, unspecified (16) Hypoxia Current visit: Yes Status: Acute Category: Medical Code(s): R09.02 - Hypoxemia (17) Troponin I above reference range Current visit: Yes Status: Acute Category: Medical Code(s): R79.89 - Other specified abnormal findings of blood chemistry (18) Status post transmetatarsal amputation of right foot Start date: 07/30/19 Current visit: Yes Status: Acute Category: Surgical Code(s): Z89.431 - Acquired absence of right foot (19) Discoloration of skin of foot Current visit: No Status: Acute Category: Medical Code(s): L81.9 - Disorder of pigmentation, unspecified (20) Sepsis Current visit: Yes Status: Acute Qualifiers: Severe sepsis shock status: without septic shock Category: Medical Code(s): A41.9 - Sepsis, unspecified organism - Assessment and plan all Dx Assessment and Plan for all problems:: Patient's H&H is stable and clinically she has improved. Wound VAC has been placed. She is likely close to discharge. Will discuss discharge planning with Dr. Alva. <Shawn Alva - Last Filed: 08/17/19 08:49> Internal Medicine - PN: Subj *Date: 08/17/19 *Time: 08:44 Exam Vital signs and Labs for Last 24 Hours: Temp Pulse Resp BP Pulse Ox 98.9 F 73 16 145/60 H 98 08/17/19 07:43 08/17/19 07:43 08/17/19 07:43 08/17/19 07:43 08/17/19 07:43 Laboratory Results - last 24 hr 08/16/19 11:22: POC Glucose 374 H* 08/16/19 12:10: Urine Color Yellow, Urine Appearance Clear, Urine pH 5.5, Ur Specific [place] 1.015, Urine Protein Negative, Urine Glucose (UA) 2+, Urine Ketones Negative, Urine Blood Negative, Urine Nitrate Negative, Urine Bilirubin Negative, Urine Urobilinogen 0.2, Ur Leukocyte Esterase Negative, Urine RBC Occasional, Urine WBC None, Ur Squamous Epith Cells 3-5, Urine Bacteria None 08/16/19 16:30: POC Glucose 353 H* 08/16/19 20:37: POC Glucose 376 H* 08/17/19 05:59: POC Glucose 323 H* 08/17/19 06:50: WBC 6.4, RBC 4.07 L, Hgb 10.6 L, Hct 33.1 L, MCV 81.4, MCH 26.0 L, MCHC 32.0, RDW 16.8, Plt Count 295 D, MPV 9.1, Neut % (Auto) 70.7, Lymph % (Auto) 19.4, [place] % (Auto) 5.9, Eos % (Auto) 3.6, Baso % (Auto) 0.4, Neut # (Auto) 4.5, Lymph # (Auto) 1.2, [place] # (Auto) 0.4, Eos # (Auto) 0.2, Baso # (Auto) 0.0 I & O for Last 24 hours: Intake & Output 08/14/19 08/15/19 08/16/19 08/17/19 23:59 23:59 23:59 23:59 Intake Total 0 2280 / 2280 2470 / 2470 360 / 360 Output Total 1075 / 1800 2024 Balance 0 1205 / 480 445 / 445 360 / 360 Weight 171 lb 8 oz 176 lb 5.917 oz 170 lb 8 oz 172 lb 2 oz Microbiology Reports for the Last 24 Hours: Microbiology 08/16/19 08:00 Foot,Right - Drainage Gram Stain - Final 08/16/19 08:00 Foot,Right - Drainage Wound Culture - Preliminary 08/14/19 16:35 Blood Blood Culture - Preliminary NO GROWTH AFTER 48 HOURS 08/14/19 16:35 Blood Blood Culture - Preliminary NO GROWTH AFTER 48 HOURS Assessment and Plan (1) Lethargic Current visit: Yes Status: Acute Category: Medical Code(s): R53.83 - Other fatigue (2) Bradycardia Current visit: Yes Status: Acute Category: Medical Code(s): R00.1 - Bradycardia, unspecified (3) Elevated lactic acid level Current visit: Yes Status: Acute Category: Medical Code(s): R79.89 - Other specified abnormal findings of blood chemistry (4) Arterial insufficiency of lower extremity Current visit: No Status: Acute Category: Medical Code(s): I73.9 - Peripheral vascular disease, unspecified (5) Hypotension Current visit: No Status: Acute Qualifiers: Hypotension type: unspecified hypotension type Qualified Code(s): I95.9 - Hypotension, unspecified Category: Medical Code(s): I95.9 - Hypotension, unspecified (6) Anemia Current visit: No Status: Chronic Qualifiers: Anemia type: unspecified type Qualified Code(s): D64.9 - Anemia, unspecified Category: Medical Code(s): D64.9 - Anemia, unspecified (7) Coronary arteriosclerosis Current visit: No Status: Chronic Category: Medical Code(s): I25.10 - Atherosclerotic heart disease of [place] coronary artery without angina pectoris (8) Diabetes mellitus Current visit: No Status: Chronic Qualifiers: Diabetes mellitus type: type 2 Diabetes mellitus senior care insulin use: without broke worker use Diabetes mellitus complication status: with neurologic complications Diabetes mellitus complication detail: with polyneuropathy Qualified Code(s): E11.42 - Type 2 diabetes mellitus with diabetic polyneuropathy Category: Medical Code(s): E11.9 - Type 2 diabetes mellitus without complications (9) Hemiparesis affecting left side as late effect of cerebrovascular accident Current visit: No Status: Chronic Category: Medical Code(s): I69.354 - Hemiplegia and hemiparesis following cerebral infarction affecting left non- dominant side (10) History of CVA (cerebrovascular accident) Current visit: No Status: Chronic Category: Medical Code(s): Z86.73 - Personal history of transient ischemic attack (TIA), and cerebral infarction without residual deficits (11) History of left below knee amputation Current visit: No Status: Chronic Category: Medical Code(s): Z89.512 - Acquired absence of left leg below knee (12) Hypertensive heart disease without heart failure Current visit: No Status: Chronic Category: Medical Code(s): I11.9 - Hypertensive heart disease without heart failure (13) Left spastic hemiparesis Current visit: No Status: Chronic Category: Medical Code(s): G81.14 - Spastic hemiplegia affecting left nondominant side (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 Current visit: No Status: Chronic Category: Medical Code(s): Z79.01 - vegetable farm manager (current) use of 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 (15) Peripheral arterial occlusive disease Current visit: No Status: Chronic Category: Medical Code(s): I77.9 - Disorder of arteries and arterioles, unspecified (16) Hypoxia Current visit: Yes Status: Acute Category: Medical Code(s): R09.02 - Hypoxemia (17) Troponin I above reference range Current visit: Yes Status: Acute Category: Medical Code(s): R79.89 - Other specified abnormal findings of blood chemistry (18) Status post transmetatarsal amputation of right foot Start date: 07/30/19 Current visit: Yes Status: Acute Category: Surgical Code(s): Z89.431 - Acquired absence of right foot (19) Discoloration of skin of foot Current visit: No Status: Acute Category: Medical Code(s): L81.9 - Di sorder of pigmentation, unspecified (20) Sepsis Current visit: Yes Status: Acute Qualifiers: Severe sepsis shock status: without septic shock Category: Medical Code(s): A41.9 - Sepsis, unspecified organism (21) Cellulitis of right foot Current visit: Yes Status: Acute Category: Medical Code(s): L03.115 - Cellulitis of right lower limb - Assessment and plan all Dx Assessment and Plan for all problems:: Saw patient with Dr. Calloway today. Discussed wound vac use and potential for further debridement. Continue current management. Earliest discharge would be in 3 days.
--- NOTE | 2019-08-17 08:54 | Progress Note ---
Subjective Date: 08/17/19 Time: 08:25 Principal diagnosis: Right foot gangrene Interval history: Patient is resting comfortably in the chair with the leg elevated. Wound VAC is in place. Patient denies pain to the right foot. PN: Obj Ex Vital signs: Temp Pulse Resp BP Pulse Ox 98.9 F 73 16 145/60 H 98 08/17/19 07:43 08/17/19 07:43 08/17/19 07:43 08/17/19 07:43 08/17/19 07:43 - Constitutional no acute distress - Routine HEENT Exam Head: Present: normocephalic - Routine Neck Exam Present: supple - Routine Respiratory Exam Absent: respiratory distress - Routine Cardiovascular Exam Present: RRR - Routine Abdominal Exam Present: soft - Routine Extremities Exam Present: edema, amputation - Detailed Lower Extremity Exam Top foot image: 1 - Right TMA noted. Wound vac in place. Some serosanginous drainage noted to VAC canister. Skin is pink, melissa-incisional erythema. Small plantar 3rd metatarsal bruise. Dorsal midfoot small circular discoloration, <0.5x0.5cm. No purulence. No POP. - Routine Back/Spine/Pelvis Exam Back/Spine: Present: full ROM - Routine Skin Exam Present: dry - Routine Neurological Exam Present: alert - Routine Psychiatric Exam Present: normal affect Progress Note: A&P (1) Lethargic Status: Acute Current Visit: Yes (2) Bradycardia Status: Acute Current Visit: Yes (3) Elevated lactic acid level Status: Acute Current Visit: Yes (4) Arterial insufficiency of lower extremity Status: Acute Current Visit: No (5) Hypotension Status: Acute Current Visit: No (6) Anemia Status: Chronic Current Visit: No (7) Coronary arteriosclerosis Status: Chronic Current Visit: No (8) Diabetes mellitus Status: Chronic Current Visit: No (9) Hemiparesis affecting left side as late effect of cerebrovascular accident Status: Chronic Current Visit: No (10) History of CVA (cerebrovascular accident) Status: Chronic Current Visit: No (11) History of left below knee amputation Status: Chronic Current Visit: No (12) Hypertensive heart disease without heart failure Status: Chronic Current Visit: No (13) Left spastic hemiparesis Status: Chronic Current Visit: No (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 Status: Chronic Current Visit: No (15) Peripheral arterial occlusive disease Status: Chronic Current Visit: No (16) Hypoxia Status: Acute Current Visit: Yes (17) Troponin I above reference range Status: Acute Current Visit: Yes (18) Status post transmetatarsal amputation of right foot Status: Acute Current Visit: Yes (19) Discoloration of skin of foot Status: Acute Current Visit: No (20) Sepsis Status: Acute Current Visit: Yes (21) Cellulitis of right foot Status: Acute Current Visit: Yes Assessment and Plan for All Diagnoses:: 07/30/19: s/p right transmetatarsal amputation (TMA), tendo Achilles lengthening (CASSANDRA) POD # 2w, 4d 07/30/19, intra-op right toe bone: Skin and subcutaneous tissue with gangrenous necrosis, extending to the surgical margin. Underlying bone with osteonecrosis, negative for acute osteomyelitis. Intra-op bone, right foot metatarsal margin: Fragments of bone, negative for acute osteomyelitis 07/30/19, wound culture right 4th toe: Streptococcus sanguinus, GPC 07/30/19, bone culture right 2nd toe: Staphylococcus epidermidis, Kingella denitrificans S. epidermidis: MRSA and resistant to erythromycin, oxacillin, penicillin. Susceptible to clindamycin, daptomycin, gentamicin, rifampin, tetracycline and vancomycin New wound culture, right foot 08/16/19: NOS The wound VAC is intact to the right foot. Skin checked. There is a small area of bruising noted to the plantar aspect of the third metatarsal. Some serosanguineous drainage noted in the VAC canister. No pain to the foot. Frank bandage reapplied to the wound VAC. Patient is to keep this dressing clean, dry, and intact; do not get wet in shower. Minimize weight bearing. Elevate and Motrin for pain and swelling. Hold ice. Plan: 1. Podiatry will do wound vac change Tuesday08/21/19 -Wound vac to right foot @125mmHg medium continuous. VAC changes 3 times weekly. 2. NWB to right foot, unless to transition to wheelchair (use fracture boot) 3. Continue IV Abx, PICC x 4 more weeks
[2019-08-17 09:04] LABS: INR 1.05 (0.9-1.1); Prothrombin Time 10.9 seconds (9.4-11.8)
--- NOTE | 2019-08-17 10:11 | Pharmacy Consult Notes ---
- Pharmacy Consult Date: 08/17/19 Time: 10:08 Referring provider: DR. CAVAZOS Reason for Consult:: GENTAMICIN LEVEL Allergies and ADEs:: Allergies Allergy/AdvReac Type Severity Reaction Status Date / Time azithromycin Allergy Intermediate S-DIFF. Verified 08/07/19 13:15 BREATHING daptomycin [DAPTOMYCIN] Allergy Intermediate I-RASH/ITCH Verified 08/07/19 13:15 ING levofloxacin Allergy Intermediate I-RASH Verified 08/07/19 13:15 Penicillins Allergy Intermediate I-HIVES Verified 08/07/19 13:15 Home Medications:: Home Medications Medication Instructions Recorded Confirmed Type amiloride 5 mg tablet 5 mg PO DAILY 09/22/17 08/15/19 History aspirin 25 mg-dipyridamole 200 mg 1 cap PO BID 09/22/17 08/15/19 History capsule,ext.release 12 hr multiphase baclofen 10 mg tablet 10 mg PO DAILY 09/22/17 08/15/19 History clopidogrel 75 mg tablet 75 mg PO DAILY 09/22/17 08/15/19 History glimepiride 2 mg tablet 2 mg PO DAILY 09/22/17 08/15/19 History metolazone 5 mg tablet 5 mg PO DAILY 09/22/17 08/15/19 History Citalopram Hydrobromide [Celexa 20 mg PO DAILY 11/20/17 08/15/19 History 20mg Tablet] Donepezil HCl [Aricept 5mg 5 mg PO HS 04/14/18 08/15/19 History Tablet] Potassium Chloride 60 meq PO TID 04/14/18 08/15/19 History Spironolactone [Aldactone 25mg 25 mg PO DAILY 04/14/18 08/15/19 History Tab] Furosemide [Furosemide 40MG tAB] 40 mg PO DAILY 04/15/18 08/15/19 History warfarin 5 mg tablet 5 mg PO SUTUTHSA tab 08/17/18 08/15/19 History Metoprolol Tartrate [Lopressor 12.5 mg PO DAILY 05/09/19 08/15/19 History 25mg tablet] Loratadine [Claritin] 10 mg PO DAILY 05/10/19 08/15/19 History Cholecalciferol (Vitamin D3) 4,000 units PO DAILY 07/23/19 08/15/19 History [Vitamin D3] Insulin Lispro [HumaLOG 100 0 unit SQ DIRECTED 07/23/19 08/15/19 History units/mL 3mL vial (SSI)] Insulin Detemir [Levemir 40 unit SQ BID #0 08/02/19 08/15/19 Rx 100units/mL 3mL flexpen] Vancomycin/0.9 % Sod Chloride 1.5 gm IV DAILY 08/14/19 08/15/19 History [Vanco 1.5 gm/500 ml-0.9% NaCl] Acetaminophen 1,000 mg PO Q6HP PRN 08/15/19 08/15/19 History Atorvastatin 40mg Tab 40 mg PO HS 08/15/19 08/15/19 History Baclofen 20 mg PO HS 08/15/19 08/15/19 History Florastor 250 mg PO BID 08/15/19 08/15/19 History Linagliptin/Metformin HCl 1 tab PO BID 08/15/19 08/15/19 History [Jentadueto 2.5 mg-1000 mg Tab] Warfarin Sodium 2.5 mg PO MOWEFR 08/15/19 08/15/19 History Height: 1.52 m Weight: 78.075 kg Laboratory Results:: Laboratory Results - last 24 hr 08/16/19 11:22: POC Glucose 374 H* 08/16/19 12:10: Urine Color Yellow, Urine Appearance Clear, Urine pH 5.5, Ur Specific [place] 1.015, Urine Protein Negative, Urine Glucose (UA) 2+, Urine Ketones Negative, Urine Blood Negative, Urine Nitrate Negative, Urine Bilirubin Negative, Urine Urobilinogen 0.2, Ur Leukocyte Esterase Negative, Urine RBC Occasional, Urine WBC None, Ur Squamous Epith Cells 3-5, Urine Bacteria None 08/16/19 16:30: POC Glucose 353 H* 08/16/19 20:37: POC Glucose 376 H* 08/17/19 05:59: POC Glucose 323 H* 08/17/19 06:50: WBC 6.4, RBC 4.07 L, Hgb 10.6 L, Hct 33.1 L, MCV 81.4, MCH 26.0 L, MCHC 32.0, RDW 16.8, Plt Count 295 D, MPV 9.1, Neut % (Auto) 70.7, Lymph % (Auto) 19.4, [place] % (Auto) 5.9, Eos % (Auto) 3.6, Baso % (Auto) 0.4, Neut # (Auto) 4.5, Lymph # (Auto) 1.2, [place] # (Auto) 0.4, Eos # (Auto) 0.2, Baso # (Auto) 0.0 08/17/19 06:50: PT 10.9, INR 1.05 08/17/19 09:05: Random Gentamicin 2.3 Medical History: Reports:: Atherosclerotic Heart Disease, Cancer, Carotid Stenosis, Congestive Heart Failure, Coronary Artery Disease, Cerebrovascular Accident, Deep Vein Thrombosis, Depression, Diabetes Mellitus Type 2, Gall Bladder Disease, Heart Murmur, Hyperlipidemia, Hypertension, MRSA, Myocardial Infarction, Peripheral Artery Disease, Peripheral Vascular Disease, Renal Disease, Renal Insufficiency, Transient Ischemic Attacks (TIA), Urinary Tract Infection Denies:: Asthma, Chronic Obstructive Pulmonary Disease (COPD), Diabetes Mellitus Type 1, Internal Pacemaker, Lung Disease, Seizures Assessment and Plan (1) Lethargic Current visit: Yes Status: Acute Category: Medical Code(s): R53.83 - Other fatigue (2) Bradycardia Current visit: Yes Status: Acute Category: Medical Code(s): R00.1 - Bradycardia, unspecified (3) Elevated lactic acid level Current visit: Yes Status: Acute Category: Medical Code(s): R79.89 - Other specified abnormal findings of blood chemistry (4) Arterial insufficiency of lower extremity Current visit: No Status: Acute Category: Medical Code(s): I73.9 - Peripheral vascular disease, unspecified (5) Hypotension Current visit: No Status: Acute Qualifiers: Hypotension type: unspecified hypotension type Qualified Code(s): I95.9 - Hypotension, unspecified Category: Medical Code(s): I95.9 - Hypotension, unspecified (6) Anemia Current visit: No Status: Chronic Qualifiers: Anemia type: unspecified type Qualified Code(s): D64.9 - Anemia, unspecified Category: Medical Code(s): D64.9 - Anemia, unspecified (7) Coronary arteriosclerosis Current visit: No Status: Chronic Category: Medical Code(s): I25.10 - Atherosclerotic heart disease of [place] coronary artery without angina pectoris (8) Diabetes mellitus Current visit: No Status: Chronic Qualifiers: Diabetes mellitus type: type 2 Diabetes mellitus fdc insulin use: without fdc use Diabetes mellitus complication status: with neurologic complications Diabetes mellitus complication detail: with polyneuropathy Qualified Code(s): E11.42 - Type 2 diabetes mellitus with diabetic polyneuropathy Category: Medical Code(s): E11.9 - Type 2 diabetes mellitus without complications (9) Hemiparesis affecting left side as late effect of cerebrovascular accident Current visit: No Status: Chronic Category: Medical Code(s): I69.354 - Hemiplegia and hemiparesis following cerebral infarction affecting left non- dominant side (10) History of CVA (cerebrovascular accident) Current visit: No Status: Chronic Category: Medical Code(s): Z86.73 - Personal history of transient ischemic attack (TIA), and cerebral infarction without residual deficits (11) History of left below knee amputation Current visit: No Status: Chronic Category: Medical Code(s): Z89.512 - Acquired absence of left leg below knee (12) Hypertensive heart disease without heart failure Current visit: No Status: Chronic Category: Medical Code(s): I11.9 - Hypertensive heart disease without heart failure (13) Left spastic hemiparesis Current visit: No Status: Chronic Category: Medical Code(s): G81.14 - Spastic hemiplegia affecting left nondominant side (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 Current visit: No Status: Chronic Category: Medical Code(s): Z79.01 - senior care (current) use of 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 (15) Peripheral arterial occlusive disease Current visit: No Status: Chronic Category: Medical Code(s): I77.9 - Disorder of arteries and arterioles, unspecified (16) Hypoxia Current visit: Yes Status: Acute Category: Medical Code(s): R09.02 - Hypoxemia (17) Troponin I above reference range Current visit: Yes Status: Acute Category: Medical Code(s): R79.89 - Other specified abnormal findings of blood chemistry (18) Status post transmetatarsal amputation of right foot Start date: 07/30/19 Current visit: Yes Status: Acute Category: Surgical Code(s): Z89.431 - Acquired absence of right foot (19) Discoloration of skin of foot Current visit: No Status: Acute Category: Medical Code(s): L81.9 - Disorder of pigmentation, unspecified (20) Sepsis Current visit: Yes Status: Acute Qualifiers: Severe sepsis shock status: without septic shock Category: Medical Code(s): A41.9 - Sepsis, unspecified organism (21) Cellulitis of right foot Current visit: Yes Status: Acute Category: Medical Code(s): L03.115 - Cellulitis of right lower limb - Assessment and plan all Dx Assessment and Plan for all problems:: BASED ON GENTAMICIN 12-HOUR POST-INFUSION LEVEL THIS MORNING, RECOMMEND CONTINUING GENTAMICIN 400 MG IV Q24H. PHARMACY WILL CONTINUE TO MONITOR AND ADJUST APPROPRIATE.
[2019-08-17 10:33] LABS: Anion Gap 11.9 mEq/L (5-15); Calcium 8.8 mg/dl (8.4-10.2)
--- NOTE | 2019-08-18 08:15 | Progress Note ---
Internal Medicine - PN: Subj *Date: 08/18/19 *Time: 08:12 Interval history: Patient with no new complaints today. She states she feels a little better this morning. Exam Vital signs and Labs for Last 24 Hours: Temp Pulse Resp BP Pulse Ox 98.0 F 76 16 115/71 94 L 08/18/19 07:41 08/18/19 07:41 08/18/19 07:41 08/18/19 07:41 08/18/19 07:41 Laboratory Results - last 24 hr 08/17/19 06:50: PT 10.9, INR 1.05 08/17/19 06:50: Sodium 132 L, Potassium 3.9, Chloride 95 L, Carbon Dioxide 29, Anion Gap 11.9, BUN 11, Creatinine 0.70, Estimated Creat Clear 117, Estimated GFR 88, Est GFR ( Amer) 107, Glucose 288 H, Calcium 8.8 08/17/19 09:05: Random Gentamicin 2.3 08/17/19 11:18: POC Glucose 295 H 08/17/19 16:20: POC Glucose 323 H* 08/17/19 20:29: POC Glucose 373 H* 08/18/19 05:12: POC Glucose 298 H Vital Signs - 24 hr 08/17/19 12:00 08/17/19 16:00 08/17/19 19:58 Temperature 98.7 F 98.7 F 99.1 F Pulse Rate [Right] 77 74 79 Respiratory Rate 16 18 18 Blood Pressure [Left Arm] 154/76 H 120/69 122/82 02 Sat by Pulse Oximetry 98 95 92 L 08/18/19 04:00 08/18/19 07:41 Temperature 98.1 F 98.0 F Pulse Rate [Right] 78 76 Respiratory Rate 18 16 Blood Pressure [Left Arm] 139/79 115/71 02 Sat by Pulse Oximetry 97 94 L I & O for Last 24 hours: Intake & Output 08/15/19 08/16/19 08/17/19 08/18/19 23:59 23:59 23:59 23:59 Intake Total 2280 / 2280 2470 / 2470 1070 / 1070 480 / 480 Output Total 1075 / 1800 2024 / 2024 700 / 700 Balance 1205 / 480 445 / 445 370 / 370 480 / 480 Weight 176 lb 5.917 oz 170 lb 8 oz 172 lb 2 oz 168 lb 7 oz Microbiology Reports for the Last 24 Hours: Microbiology 08/16/19 08:00 Foot,Right - Drainage Gram Stain - Final 08/16/19 08:00 Foot,Right - Drainage Wound Culture - Preliminary Gram Negative Rods - Constitutional no acute distress - *Routine HEENT Exam Head: Present: normocephalic Eye: Present: EOMI ENT: Present: mucous membranes moist - *Routine Neck Exam Present: supple. Absent: lymphadenopathy - *Routine Respiratory Exam Present: CTA bilaterally - *Routine Cardiovascular Exam Present: RRR - *Routine Abdominal Exam Present: soft, normoactive bowel sounds. Absent: tenderness - *Routine Extremities Exam Comments: wound vac in place on right foot - *Routine Skin Exam Present: warm - *Routine Neurological Exam Present: alert, oriented X3 Assessment and Plan (1) Lethargic Current visit: Yes Status: Acute Category: Medical Code(s): R53.83 - Other fatigue (2) Bradycardia Current visit: Yes Status: Acute Category: Medical Code(s): R00.1 - Bradycardia, unspecified (3) Elevated lactic acid level Current visit: Yes Status: Acute Category: Medical Code(s): R79.89 - Other specified abnormal findings of blood chemistry (4) Arterial insufficiency of lower extremity Current visit: No Status: Acute Category: Medical Code(s): I73.9 - Peripheral vascular disease, unspecified (5) Hypotension Current visit: No Status: Acute Qualifiers: Hypotension type: unspecified hypotension type Qualified Code(s): I95.9 - Hypotension, unspecified Category: Medical Code(s): I95.9 - Hypotension, unspecified (6) Anemia Current visit: No Status: Chronic Qualifiers: Anemia type: unspecified type Qualified Code(s): D64.9 - Anemia, unspecified Category: Medical Code(s): D64.9 - Anemia, unspecified (7) Coronary arteriosclerosis Current visit: No Status: Chronic Category: Medical Code(s): I25.10 - Atherosclerotic heart disease of [place] coronary artery without angina pectoris (8) Diabetes mellitus Current visit: No Status: Chronic Qualifiers: Diabetes mellitus type: type 2 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 Diabetes mellitus complication status: with neurologic complications Diabetes mellitus complication detail: with polyneuropathy Qualified Code(s): E11.42 - Type 2 diabetes mellitus with diabetic polyneuropathy Category: Medical Code(s): E11.9 - Type 2 diabetes mellitus without complications (9) Hemiparesis affecting left side as late effect of cerebrovascular accident Current visit: No Status: Chronic Category: Medical Code(s): I69.354 - Hemiplegia and hemiparesis following cerebral infarction affecting left non- dominant side (10) History of CVA (cerebrovascular accident) Current visit: No Status: Chronic Category: Medical Code(s): Z86.73 - Personal history of transient ischemic attack (TIA), and cerebral infarction without residual deficits (11) History of left below knee amputation Current visit: No Status: Chronic Category: Medical Code(s): Z89.512 - Acquired absence of left leg below knee (12) Hypertensive heart disease without heart failure Current visit: No Status: Chronic Category: Medical Code(s): I11.9 - Hyper tensive heart disease without heart failure (13) Left spastic hemiparesis Current visit: No Status: Chronic Category: Medical Code(s): G81.14 - Spastic hemiplegia affecting left nondominant side (14) [facility] 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 Current visit: No Status: Chronic Category: Medical Code(s): Z79.01 - [facility] (current) use of 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 (15) Peripheral arterial occlusive disease Current visit: No Status: Chronic Category: Medical Code(s): I77.9 - Disorder of arteries and arterioles, unspecified (16) Hypoxia Current visit: Yes Status: Acute Category: Medical Code(s): R09.02 - Hypoxemia (17) Troponin I above reference range Current visit: Yes Status: Acute Category: Medical Code(s): R79.89 - Other specified abnormal findings of blood chemistry (18) Status post transmetatarsal amputation of right foot Start date: 07/30/19 Current visit: Yes Status: Acute Category: Surgical Code(s): Z89.431 - Acquired absence of right foot (19) Discoloration of skin of foot Current visit: No Status: Acute Category: Medical Code(s): L81.9 - Disorder of pigmentation, unspecified (20) Sepsis Current visit: Yes Status: Acute Qualifiers: Severe sepsis shock status: without septic shock Category: Medical Code(s): A41.9 - Sepsis, unspecified organism (21) Cellulitis of right foot Current visit: Yes Status: Acute Category: Medical Code(s): L03.115 - Cellulitis of right lower limb - Assessment and plan all Dx Assessment and Plan for all problems:: Culture from right foot wound has growth of a gram negative key. Continue current antibiotic treatment, await culture results. Increase insulin due to elevated blood sugars.
--- NOTE | 2019-08-18 10:11 | Pharmacy Consult Notes ---
- Pharmacy Consult Date: 08/18/19 Time: 10:10 Referring provider: DR. CAVAZOS Reason for Consult:: VANCOMYCIN TROUGH LEVEL Allergies and ADEs:: Allergies Allergy/AdvReac Type Severity Reaction Status Date / Time azithromycin Allergy Intermediate S-DIFF. Verified 08/07/19 13:15 BREATHING daptomycin [DAPTOMYCIN] Allergy Intermediate I-RASH/ITCH Verified 08/07/19 13:15 ING levofloxacin Allergy Intermediate I-RASH Verified 08/07/19 13:15 Penicillins Allergy Intermediate I-HIVES Verified 08/07/19 13:15 Home Medications:: Home Medications Medication Instructions Recorded Confirmed Type amiloride 5 mg tablet 5 mg PO DAILY 09/22/17 08/15/19 History aspirin 25 mg-dipyridamole 200 mg 1 cap PO BID 09/22/17 08/15/19 History capsule,ext.release 12 hr multiphase baclofen 10 mg tablet 10 mg PO DAILY 09/22/17 08/15/19 History clopidogrel 75 mg tablet 75 mg PO DAILY 09/22/17 08/15/19 History glimepiride 2 mg tablet 2 mg PO DAILY 09/22/17 08/15/19 History metolazone 5 mg tablet 5 mg PO DAILY 09/22/17 08/15/19 History Citalopram Hydrobromide [Celexa 20 mg PO DAILY 11/20/17 08/15/19 History 20mg Tablet] Donepezil HCl [Aricept 5mg 5 mg PO HS 04/14/18 08/15/19 History Tablet] Potassium Chloride 60 meq PO TID 04/14/18 08/15/19 History Spironolactone [Aldactone 25mg 25 mg PO DAILY 04/14/18 08/15/19 History Tab] Furosemide [Furosemide 40MG tAB] 40 mg PO DAILY 04/15/18 08/15/19 History warfarin 5 mg tablet 5 mg PO SUTUTHSA tab 08/17/18 08/15/19 History Metoprolol Tartrate [Lopressor 12.5 mg PO DAILY 05/09/19 08/15/19 History 25mg tablet] Loratadine [Claritin] 10 mg PO DAILY 05/10/19 08/15/19 History Cholecalciferol (Vitamin D3) 4,000 units PO DAILY 07/23/19 08/15/19 History [Vitamin D3] Insulin Lispro [HumaLOG 100 0 unit SQ DIRECTED 07/23/19 08/15/19 History units/mL 3mL vial (SSI)] Insulin Detemir [Levemir 40 unit SQ BID #0 08/02/19 08/15/19 Rx 100units/mL 3mL flexpen] Vancomycin/0.9 % Sod Chloride 1.5 gm IV DAILY 08/14/19 08/15/19 History [Vanco 1.5 gm/500 ml-0.9% NaCl] Acetaminophen 1,000 mg PO Q6HP PRN 08/15/19 08/15/19 History Atorvastatin 40mg Tab 40 mg PO HS 08/15/19 08/15/19 History Baclofen 20 mg PO HS 08/15/19 08/15/19 History Florastor 250 mg PO BID 08/15/19 08/15/19 History Linagliptin/Metformin HCl 1 tab PO BID 08/15/19 08/15/19 History [Jentadueto 2.5 mg-1000 mg Tab] Warfarin Sodium 2.5 mg PO MOWEFR 08/15/19 08/15/19 History Height: 1.52 m Weight: 76.402 kg Laboratory Results:: Laboratory Results - last 24 hr 08/17/19 06:50: Sodium 132 L, Potassium 3.9, Chloride 95 L, Carbon Dioxide 29, Anion Gap 11.9, BUN 11, Creatinine 0.70, Estimated Creat Clear 117, Estimated GFR 88, Est GFR ( Amer) 107, Glucose 288 H, Calcium 8.8 08/17/19 11:18: POC Glucose 295 H 08/17/19 16:20: POC Glucose 323 H* 08/17/19 20:29: POC Glucose 373 H* 08/18/19 05:12: POC Glucose 298 H 08/18/19 08:30: Vancomycin Trough 23.3 H Medical History: Reports:: Atherosclerotic Heart Disease, Cancer, Carotid Stenosis, Congestive Heart Failure, Coronary Artery Disease, Cerebrovascular Accident, Deep Vein Thrombosis, Depression, Diabetes Mellitus Type 2, Gall Bladder Disease, Heart Murmur, Hyperlipidemia, Hypertension, MRSA, Myocardial Infarction, Peripheral Artery Disease, Peripheral Vascular Disease, Renal Disease, Renal Insufficiency, Transient Ischemic Attacks (TIA), Urinary Tract Infection Denies:: Asthma, Chronic Obstructive Pulmonary Disease (COPD), Diabetes Mellitus Type 1, Internal Pacemaker, Lung Disease, Seizures Assessment and Plan (1) Lethargic Current visit: Yes Status: Acute Category: Medical Code(s): R53.83 - Other fatigue (2) Bradycardia Current visit: Yes Status: Acute Category: Medical Code(s): R00.1 - Bradycardia, unspecified (3) Elevated lactic acid level Current visit: Yes Status: Acute Category: Medical Code(s): R79.89 - Other specified abnormal findings of blood chemistry (4) Arterial insufficiency of lower extremity Current visit: No Status: Acute Category: Medical Code(s): I73.9 - Peripheral vascular disease, unspecified (5) Hypotension Current visit: No Status: Acute Qualifiers: Hypotension type: unspecified hypotension type Qualified Code(s): I95.9 - Hypotension, unspecified Category: Medical Code(s): I95.9 - Hypotension, unspecified (6) Anemia Current visit: No Status: Chronic Qualifiers: Anemia type: unspecified type Qualified Code(s): D64.9 - Anemia, unspecified Category: Medical Code(s): D64.9 - Anemia, unspecified (7) Coronary arteriosclerosis Current visit: No Status: Chronic Category: Medical Code(s): I25.10 - Atherosclerotic heart disease of [place] coronary artery without angina pectoris (8) Diabetes mellitus Current visit: No Status: Chronic Qualifiers: Diabetes mellitus type: type 2 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 Diabetes mellitus complication status: with neurologic complications Diabetes mellitus complication detail: with polyneuropathy Qualified Code(s): E11.42 - Type 2 diabetes mellitus with diabetic polyneuropathy Category: Medical Code(s): E11.9 - Type 2 diabetes mellitus without complications (9) Hemiparesis affecting left side as late effect of cerebrovascular accident Current visit: No Status: Chronic Category: Medical Code(s): I69.354 - Hemiplegia and hemiparesis following cerebral infarction affecting left non- dominant side (10) History of CVA (cerebrovascular accident) Current visit: No Status: Chronic Category: Medical Code(s): Z86.73 - Personal history of transient ischemic attack (TIA), and cerebral infarction without residual deficits (11) History of left below knee amputation Current visit: No Status: Chronic Category: Medical Code(s): Z89.512 - Acquired absence of left leg below knee (12) Hypertensive heart disease without heart failure Current visit: No Status: Chronic Category: Medical Code(s): I11.9 - Hypertensive heart disease without heart failure (13) Left spastic hemiparesis Current visit: No Status: Chronic Category: Medical Code(s): G81.14 - Spastic hemiplegia affecting left nondominant side (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 Current visit: No Status: Chronic Category: Medical Code(s): Z79.01 - 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 (15) Peripheral arterial occlusive disease Current visit: No Status: Chronic Category: Medical Code(s): I77.9 - Disorder of arteries and arterioles, unspecified (16) Hypoxia Current visit: Yes Status: Acute Category: Medical Code(s): R09.02 - Hypoxemia (17) Troponin I above reference range Current visit: Yes Status: Acute Category: Medical Code(s): R79.89 - Other specified abnormal findings of blood chemistry (18) Status post transmetatarsal amputation of right foot Start date: 07/30/19 Current visit: Yes Status: Acute Category: Surgical Code(s): Z89.431 - Acquired absence of right foot (19) Discoloration of skin of foot Current visit: No Status: Acute Category: Medical Code(s): L81.9 - Disorder of pigmentation, unspecified (20) Sepsis Current visit: Yes Status: Acute Qualifiers: Severe sepsis shock status: without septic shock Category: Medical Code(s): A41.9 - Sepsis, unspecified organism (21) Cellulitis of right foot Current visit: Yes Status: Acute Category: Medical Code(s): L03.115 - Cellulitis of right lower limb - Assessment and plan all Dx Assessment and Plan for all problems:: BASED ON PATIENT FACTORS AND VANCOMYCIN TROUGH LEVEL, RECOMMEND EXTENDING THE INTERVAL TO VANCOMYCIN 1500 MG IV Q18H. PHARMACY WILL CONTINUE TO MONITOR DAILY AND ADJUST APPROPRIATE.
--- NOTE | 2019-08-18 10:21 | Progress Note ---
Internal Medicine - PN: Subj *Date: 08/18/19 *Time: 10:20 Exam Vital signs and Labs for Last 24 Hours: Temp Pulse Resp BP Pulse Ox 98.0 F 76 16 115/71 94 L 08/18/19 07:41 08/18/19 07:41 08/18/19 07:41 08/18/19 07:41 08/18/19 07:41 Laboratory Results - last 24 hr 08/17/19 06:50: Sodium 132 L, Potassium 3.9, Chloride 95 L, Carbon Dioxide 29, Anion Gap 11.9, BUN 11, Creatinine 0.70, Estimated Creat Clear 117, Estimated GFR 88, Est GFR ( Amer) 107, Glucose 288 H, Calcium 8.8 08/17/19 11:18: POC Glucose 295 H 08/17/19 16:20: POC Glucose 323 H* 08/17/19 20:29: POC Glucose 373 H* 08/18/19 05:12: POC Glucose 298 H 08/18/19 08:30: Vancomycin Trough 23.3 H I & O for Last 24 hours: Intake & Output 08/15/19 08/16/19 08/17/19 08/18/19 23:59 23:59 23:59 23:59 Intake Total 2280 / 2280 2470 / 2470 1070 / 1070 480 / 480 Output Total 1075 / 1800 2024 / 2024 700 / 700 Balance 1205 / 480 445 / 445 370 / 370 480 / 480 Weight 80 kg 77.337 kg 78.075 kg 76.402 kg Microbiology Reports for the Last 24 Hours: Microbiology 08/16/19 08:00 Foot,Right - Drainage Gram Stain - Final 08/16/19 08:00 Foot,Right - Drainage Wound Culture - Preliminary Gram Negative Rods Assessment and Plan (1) Lethargic Current visit: Yes Status: Acute Category: Medical Code(s): R53.83 - Other fatigue (2) Bradycardia Current visit: Yes Status: Acute Category: Medical Code(s): R00.1 - Bradycardia, unspecified (3) Elevated lactic acid level Current visit: Yes Status: Acute Category: Medical Code(s): R79.89 - Other specified abnormal findings of blood chemistry (4) Arterial insufficiency of lower extremity Current visit: No Status: Acute Category: Medical Code(s): I73.9 - Peripheral vascular disease, unspecified (5) Hypotension Current visit: No Status: Acute Qualifiers: Hypotension type: unspecified hypotension type Qualified Code(s): I95.9 - Hypotension, unspecified Category: Medical Code(s): I95.9 - Hypotension, unspecified (6) Anemia Current visit: No Status: Chronic Qualifiers: Anemia type: unspecified type Qualified Code(s): D64.9 - Anemia, unspecified Category: Medical Code(s): D64.9 - Anemia, unspecified (7) Coronary arteriosclerosis Current visit: No Status: Chronic Category: Medical Code(s): I25.10 - Atherosclerotic heart disease of [place] coronary artery without angina pectoris (8) Diabetes mellitus Current visit: No Status: Chronic Qualifiers: Diabetes mellitus type: type 2 Diabetes mellitus terminal carman insulin use: without terminal carman use Diabetes mellitus complication status: with neurologic complications Diabetes mellitus complication detail: with polyneuropathy Qualified Code(s): E11.42 - Type 2 diabetes mellitus with diabetic polyneuropathy Category: Medical Code(s): E11.9 - Type 2 diabetes mellitus without complications (9) Hemiparesis affecting left side as late effect of cerebrovascular accident Current visit: No Status: Chronic Category: Medical Code(s): I69.354 - Hemiplegia and hemiparesis following cerebral infarction affecting left non- dominant side (10) History of CVA (cerebrovascular accident) Current visit: No Status: Chronic Category: Medical Code(s): Z86.73 - Personal history of transient ischemic attack (TIA), and cerebral infarction without residual deficits (11) History of left below knee amputation Current visit: No Status: Chronic Category: Medical Code(s): Z89.512 - Acquired absence of left leg below knee (12) Hypertensive heart disease without heart failure Current visit: No Status: Chronic Category: Medical Code(s): I11.9 - Hypertensive heart disease without heart failure (13) Left spastic hemiparesis Current visit: No Status: Chronic Category: Medical Code(s): G81.14 - Spastic hemiplegia affecting left nondominant side (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 Current visit: No Status: Chronic Category: Medical Code(s): Z79.01 - halfway (current) use of 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 (15) Peripheral arterial occlusive disease Current visit: No Status: Chronic Category: Medical Code(s): I77.9 - Disorder of arteries and arterioles, unspecified (16) Hypoxia Current visit: Yes Status: Acute Category: Medical Code(s): R09.02 - Hypoxemia (17) Troponin I above reference range Current visit: Yes Status: Acute Category: Medical Code(s): R79.89 - Other specified abnormal findings of blood chemistry (18) Status post transmetatarsal amputation of right foot Start date: 07/30/19 Current visit: Yes Status: Acute Category: Surgical Code(s): Z89.431 - Acquired absence of right foot (19) Discoloration of skin of foot Current visit: No Status: Acute Category: Medical Code(s): L81.9 - Disorder of pigmentation, unspecified (20) Sepsis Current visit: Yes Status: Acute Qualifiers: Severe sepsis shock status: without septic shock Category: Medical Code(s): A41.9 - Sepsis, unspecified organism (21) Cellulitis of right foot Current visit: Yes Status: Acute Category: Medical Code(s): L03.115 - Cellulitis of right lower limb The patient's infection will respond to the chosen ABx?: Yes Is the patient receiving the right drug, dose, and route?: Yes Could a more targeted ABx be ordered?: No (STILL AWAITING SENSITIVITES FROM A NEW FOOT WOUND CULTURE)
[2019-08-19 07:33] LABS: Basophils % 0.5 % (0.1-2.0); Eosinophils # 0.3 K/mm3 (0.0-0.4); Eosinophils % 3.3 % (0.1-12.0); Hematocrit 35.3 % (37.0-47.0); Lymphocytes # 1.6 K/mm3 (0.7-4.5); Lymphocytes % 17.9 % (10-50); Mean Corpuscular HGB Conc 31.1 g/dL (31.8-35.4); Mean Corpuscular Volume 82.1 fl (81-99); Mean Platelet Volume 8.4 fl (7.4-10.4); Monocytes # 0.6 K/mm3 (0.1-1.0); Monocytes % 6.2 % (1.7-9.3); Neutrophils # 6.5 K/mm3 (1.8-7.8); Neutrophils % 72.1 % (37.0-80.0); Platelet Count 474 K/mm3 (142-424); White Blood Count 8.9 K/mm3 (4.8-10.8)
[2019-08-19 07:42] LABS: INR 1.07 (0.9-1.1); Prothrombin Time 11.1 seconds (9.4-11.8)
[2019-08-19 07:55] LABS: Calcium 9.1 mg/dl (8.4-10.2)
--- NOTE | 2019-08-19 09:17 | Progress Note ---
Internal Medicine - PN: Subj *Date: 08/19/19 *Time: 09:15 Interval history: Patient with no new complaints today. Exam Vital signs and Labs for Last 24 Hours: Temp Pulse Resp BP Pulse Ox 97.5 F L 80 16 114/72 98 08/19/19 08:00 08/19/19 08:00 08/19/19 08:00 08/19/19 08:00 08/19/19 08:00 Laboratory Results - last 24 hr 08/18/19 08:30: Vancomycin Trough 23.3 H 08/18/19 10:59: POC Glucose 309 H* 08/18/19 16:16: POC Glucose 352 H* 08/18/19 20:02: POC Glucose 322 H* 08/19/19 05:19: POC Glucose 214 H 08/19/19 07:09: Vancomycin Trough 15.3 H 08/19/19 07:09: WBC 8.9 D, RBC 4.30, Hgb 11.0 L, Hct 35.3 L, MCV 82.1, MCH 25.5 L, MCHC 31.1 L, RDW 17.0, Plt Count 474 H D, MPV 8.4, Neut % (Auto) 72.1, Lymph % (Auto) 17.9, [place] % (Auto) 6.2, Eos % (Auto) 3.3, Baso % (Auto) 0.5, Neut # (Auto) 6.5, Lymph # (Auto) 1.6, [place] # (Auto) 0.6, Eos # (Auto) 0.3, Baso # (Auto) 0.0 08/19/19 07:09: PT 11.1, INR 1.07 08/19/19 07:09: Sodium 137, Potassium 4.0, Chloride 98, Carbon Dioxide 30, Anion Gap 13.0, BUN 18 H D, Creatinine 0.90 D, Estimated Creat Clear 87, Estimated GFR 66, Est GFR ( Amer) 80 D, Glucose 170 H, Calcium 9.1 Vital Signs - 24 hr 08/18/19 16:00 08/18/19 19:47 08/19/19 04:00 Temperature 98.9 F 100.8 F H 98.2 F Pulse Rate [Right] 79 74 71 Respiratory Rate 17 18 17 Blood Pressure [Left Arm] 134/68 131/70 129/81 02 Sat by Pulse Oximetry 95 95 97 08/19/19 08:00 Temperature 97.5 F L Pulse Rate [Right] 80 Respiratory Rate 16 Blood Pressure [Left Arm] 114/72 02 Sat by Pulse Oximetry 98 I & O for Last 24 hours: Intake & Output 08/16/19 08/17/19 08/18/19 08/19/19 23:59 23:59 23:59 23:59 Intake Total 2470 / 2470 1070 / 1070 1284 / 1284 680 / 680 Output Total 2024 700 / 700 1450 / 1450 Balance 445 / 445 370 / 370 -166 / -166 680 / 680 Weight 170 lb 8 oz 172 lb 2 oz 168 lb 7 oz 164 lb 9 oz Microbiology Reports for the Last 24 Hours: Microbiology 08/16/19 08:00 Foot,Right - Drainage Gram Stain - Final 08/16/19 08:00 Foot,Right - Drainage Wound Culture - Final Morganella morganii - Constitutional no acute distress - *Routine HEENT Exam Head: Present: normocephalic Eye: Present: EOMI ENT: Present: mucous membranes moist - *Routine Neck Exam Present: supple. Absent: lymphadenopathy - *Routine Respiratory Exam Present: CTA bilaterally - *Routine Cardiovascular Exam Present: RRR - *Routine Abdominal Exam Present: soft, normoactive bowel sounds. Absent: tenderness - *Routine Extremities Exam Comments: Wound vac in place over foot wound - *Routine Skin Exam Present: warm - *Routine Neurological Exam Present: alert, oriented X3 Assessment and Plan (1) Lethargic Current visit: Yes Status: Acute Category: Medical Code(s): R53.83 - Other fatigue (2) Bradycardia Current visit: Yes Status: Acute Category: Medical Code(s): R00.1 - Bradycardia, unspecified (3) Elevated lactic acid level Current visit: Yes Status: Acute Category: Medical Code(s): R79.89 - Other specified abnormal findings of blood chemistry (4) Arterial insufficiency of lower extremity Current visit: No Status: Acute Category: Medical Code(s): I73.9 - Peripheral vascular disease, unspecified (5) Hypotension Current visit: No Status: Acute Qualifiers: Hypotension type: unspecified hypotension type Qualified Code(s): I95.9 - Hypotension, unspecified Category: Medical Code(s): I95.9 - Hypotension, unspecified (6) Anemia Current visit: No Status: Chronic Qualifiers: Anemia type: unspecified type Qualified Code(s): D64.9 - Anemia, unspecified Category: Medical Code(s): D64.9 - Anemia, unspecified (7) Coronary arteriosclerosis Current visit: No Status: Chronic Category: Medical Code(s): I25.10 - Athe rosclerotic heart disease of [place] coronary artery without angina pectoris (8) Diabetes mellitus Current visit: No Status: Chronic Qualifiers: Diabetes mellitus type: type 2 Diabetes mellitus fci insulin use: without fci use Diabetes mellitus complication status: with neurologic complications Diabetes mellitus complication detail: with polyneuropathy Qualified Code(s): E11.42 - Type 2 diabetes mellitus with diabetic polyneuropathy Category: Medical Code(s): E11.9 - Type 2 diabetes mellitus without complications (9) Hemiparesis affecting left side as late effect of cerebrovascular accident Current visit: No Status: Chronic Category: Medical Code(s): I69.354 - Hemiplegia and hemiparesis following cerebral infarction affecting left non- dominant side (10) History of CVA (cerebrovascular accident) Current visit: No Status: Chronic Category: Medical Code(s): Z86.73 - Per tuan history of transient ischemic attack (TIA), and cerebral infarction without residual deficits (11) History of left below knee amputation Current visit: No Status: Chronic Category: Medical Code(s): Z89.512 - Acquired absence of left leg below knee (12) Hypertensive heart disease without heart failure Current visit: No Status: Chronic Category: Medical Code(s): I11.9 - Hypertensive heart disease without heart failure (13) Left spastic hemiparesis Current visit: No Status: Chronic Category: Medical Code(s): G81.14 - Spastic hemiplegia affecting left nondominant side (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 visit: No Status: Chronic Category: Medical Code(s): Z79.01 - rat exterminator (current) use of 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 (15) Peripheral arterial occlusive disease Current visit: No Status: Chronic Category: Medical Code(s): I77.9 - Disorder of arteries and arterioles, unspecified (16) Hypoxia Current visit: Yes Status: Acute Category: Medical Code(s): R09.02 - Hypoxemia (17) Troponin I above reference range Current visit: Yes Status: Acute Category: Medical Code(s): R79.89 - Other specified abnormal findings of blood chemistry (18) Status post transmetatarsal amputation of right foot Start date: 07/30/19 Current visit: Yes Status: Acute Category: Surgical Code(s): Z89.431 - Acquired absence of right foot (19) Discoloration of skin of foot Current visit: No Status: Acute Category: Medical Code(s): L81.9 - Disorder of pigmentation, unspecified (20) Sepsis Current visit: Yes Status: Acute Qualifiers: Severe sepsis shock status: without septic shock Category: Medical Code(s): A41.9 - Sepsis, unspecified organism (21) Cellulitis of right foot Current visit: Yes Status: Acute Category: Medical Code(s): L03.115 - Cellulitis of right lower limb (22) Bacterial infection due to Morganella morganii Current visit: Yes Status: Acute Category: Medical Code(s): A49.8 - Other bacterial infections of unspecified site - Assessment and plan all Dx Assessment and Plan for all problems:: Will stop Gent. today and cont. Cefepime and Vanc.
--- NOTE | 2019-08-19 11:40 | Pharmacy Consult Notes ---
- Pharmacy Consult Date: 08/19/19 Time: 11:38 Referring provider: DR. CAVAZOS Reason for Consult:: VANCOMYCIN TROUGH LEVEL Allergies and ADEs:: Allergies Allergy/AdvReac Type Severity Reaction Status Date / Time azithromycin Allergy Intermediate S-DIFF. Verified 08/07/19 13:15 BREATHING daptomycin [DAPTOMYCIN] Allergy Intermediate I-RASH/ITCH Verified 08/07/19 13:15 ING levofloxacin Allergy Intermediate I-RASH Verified 08/07/19 13:15 Penicillins Allergy Intermediate I-HIVES Verified 08/07/19 13:15 Home Medications:: Home Medications Medication Instructions Recorded Confirmed Type amiloride 5 mg tablet 5 mg PO DAILY 09/22/17 08/15/19 History aspirin 25 mg-dipyridamole 200 mg 1 cap PO BID 09/22/17 08/15/19 History capsule,ext.release 12 hr multiphase baclofen 10 mg tablet 10 mg PO DAILY 09/22/17 08/15/19 History clopidogrel 75 mg tablet 75 mg PO DAILY 09/22/17 08/15/19 History glimepiride 2 mg tablet 2 mg PO DAILY 09/22/17 08/15/19 History metolazone 5 mg tablet 5 mg PO DAILY 09/22/17 08/15/19 History Citalopram Hydrobromide [Celexa 20 mg PO DAILY 11/20/17 08/15/19 History 20mg Tablet] Donepezil HCl [Aricept 5mg 5 mg PO HS 04/14/18 08/15/19 History Tablet] Potassium Chloride 60 meq PO TID 04/14/18 08/15/19 History Spironolactone [Aldactone 25mg 25 mg PO DAILY 04/14/18 08/15/19 History Tab] Furosemide [Furosemide 40MG tAB] 40 mg PO DAILY 04/15/18 08/15/19 History warfarin 5 mg tablet 5 mg PO SUTUTHSA tab 08/17/18 08/15/19 History Metoprolol Tartrate [Lopressor 12.5 mg PO DAILY 05/09/19 08/15/19 History 25mg tablet] Loratadine [Claritin] 10 mg PO DAILY 05/10/19 08/15/19 History Cholecalciferol (Vitamin D3) 4,000 units PO DAILY 07/23/19 08/15/19 History [Vitamin D3] Insulin Lispro [HumaLOG 100 0 unit SQ DIRECTED 07/23/19 08/15/19 History units/mL 3mL vial (SSI)] Insulin Detemir [Levemir 40 unit SQ BID #0 08/02/19 08/15/19 Rx 100units/mL 3mL flexpen] Vancomycin/0.9 % Sod Chloride 1.5 gm IV DAILY 08/14/19 08/15/19 History [Vanco 1.5 gm/500 ml-0.9% NaCl] Acetaminophen 1,000 mg PO Q6HP PRN 08/15/19 08/15/19 History Atorvastatin 40mg Tab 40 mg PO HS 08/15/19 08/15/19 History Baclofen 20 mg PO HS 08/15/19 08/15/19 History Florastor 250 mg PO BID 08/15/19 08/15/19 History Linagliptin/Metformin HCl 1 tab PO BID 08/15/19 08/15/19 History [Jentadueto 2.5 mg-1000 mg Tab] Warfarin Sodium 2.5 mg PO MOWEFR 08/15/19 08/15/19 History Height: 1.52 m Weight: 74.644 kg Laboratory Results:: Laboratory Results - last 24 hr 08/18/19 16:16: POC Glucose 352 H* 08/18/19 20:02: POC Glucose 322 H* 08/19/19 05:19: POC Glucose 214 H 08/19/19 07:09: Vancomycin Trough 15.3 H 08/19/19 07:09: WBC 8.9 D, RBC 4.30, Hgb 11.0 L, Hct 35.3 L, MCV 82.1, MCH 25.5 L, MCHC 31.1 L, RDW 17.0, Plt Count 474 H D, MPV 8.4, Neut % (Auto) 72.1, Lymph % (Auto) 17.9, [place] % (Auto) 6.2, Eos % (Auto) 3.3, Baso % (Auto) 0.5, Neut # (Auto) 6.5, Lymph # (Auto) 1.6, [place] # (Auto) 0.6, Eos # (Auto) 0.3, Baso # (Auto) 0.0 08/19/19 07:09: PT 11.1, INR 1.07 08/19/19 07:09: Sodium 137, Potassium 4.0, Chloride 98, Carbon Dioxide 30, Anion Gap 13.0, BUN 18 H D, Creatinine 0.90 D, Estimated Creat Clear 87, Estimated GFR 66, Est GFR ( Amer) 80 D, Glucose 170 H, Calcium 9.1 Medical History: Reports:: Atherosclerotic Heart Disease, Cancer, Carotid Stenosis, Congestive Heart Failure, Coronary Artery Disease, Cerebrovascular Accident, Deep Vein Thrombosis, Depression, Diabetes Mellitus Type 2, Gall Bladder Disease, Heart Murmur, Hyperlipidemia, Hypertension, MRSA, Myocardial Infarction, Peripheral Artery Disease, Peripheral Vascular Disease, Renal Disease, Renal Insufficiency, Transient Ischemic Attacks (TIA), Urinary Tract Infection Denies:: Asthma, Chronic Obstructive Pulmonary Disease (COPD), Diabetes Mellitus Type 1, Internal Pacemaker, Lung Disease, Seizures Assessment and Plan (1) Lethargic Current visit: Yes Status: Acute Category: Medical Code(s): R53.83 - Other fatigue (2) Bradycardia Current visit: Yes Status: Acute Category: Medical Code(s): R00.1 - Bradycardia, unspecified (3) Elevated lactic acid level Current visit: Yes Status: Acute Category: Medical Code(s): R79.89 - Other specified abnormal findings of blood chemistry (4) Arterial insufficiency of lower extremity Current visit: No Status: Acute Category: Medical Code(s): I73.9 - Peripheral vascular disease, unspecified (5) Hypotension Current visit: No Status: Acute Qualifiers: Hypotension type: unspecified hypotension type Qualified Code(s): I95.9 - Hypotension, unspecified Category: Medical Code(s): I95.9 - Hypotension, unspecified (6) Anemia Current visit: No Status: Chronic Qualifiers: Anemia type: unspecified type Qualified Code(s): D64.9 - Anemia, unspecified Category: Medical Code(s): D64.9 - Anemia, unspecified (7) Coronary arteriosclerosis Current visit: No Status: Chronic Category: Medical Code(s): I25.10 - Atherosclerotic heart disease of [place] coronary artery without angina pectoris (8) Diabetes mellitus Current visit: No Status: Chronic Qualifiers: Diabetes mellitus type: type 2 Diabetes mellitus [facility] insulin use: without intermission coordinator use Diabetes mellitus complication status: with neurologic complications Diabetes mellitus complication detail: with polyneuropathy Qualified Code(s): E11.42 - Type 2 diabetes mellitus with diabetic polyneuropathy Category: Medical Code(s): E11.9 - Type 2 diabetes mellitus without complications (9) Hemiparesis affecting left side as late effect of cerebrovascular accident Current visit: No Status: Chronic Category: Medical Code(s): I69.354 - Hemiplegia and hemiparesis following cerebral infarction affecting left non- dominant side (10) History of CVA (cerebrovascular accident) Current visit: No Status: Chronic Category: Medical Code(s): Z86.73 - Personal history of transient ischemic attack (TIA), and cerebral infarction wit hout residual deficits (11) History of left below knee amputation Current visit: No Status: Chronic Category: Medical Code(s): Z89.512 - Acquired absence of left leg below knee (12) Hypertensive heart disease without heart failure Current visit: No Status: Chronic Category: Medical Code(s): I11.9 - Hypertensive heart disease without heart failure (13) Left spastic hemiparesis Current visit: No Status: Chronic Category: Medical Code(s): G81.14 - Spastic hemiplegia affecting left nondominant side (14) [facility] 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 Current visit: No Status: Chronic Category: Medical Code(s): Z79.01 - roasterman (current) use of 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 (15) Peripheral arterial occlusive disease Current visit: No Status: Chronic Category: Medical Code(s): I77.9 - Disorder of arteries and arterioles, unspecified (16) Hypoxia Current visit: Yes Status: Acute Category: Medical Code(s): R09.02 - Hypoxemia (17) Troponin I above reference range Current visit: Yes Status: Acute Category: Medical Code(s): R79.89 - Other specified abnormal findings of blood chemistry (18) Status post transmetatarsal amputation of right foot Start date: 07/30/19 Current visit: Yes Status: Acute Category: Surgical Code(s): Z89.431 - Acquired absence of right foot (19) Discoloration of skin of foot Current visit: No Status: Acute Category: Medical Code(s): L81.9 - Disorder of pigmentation, unspecified (20) Sepsis Current visit: Yes Status: Acute Qualifiers: Severe sepsis shock status: without septic shock Category: Medical Code(s): A41.9 - Sepsis, unspecified organism (21) Cellulitis of right foot Current visit: Yes Status: Acute Category: Medical Code(s): L03.115 - Cellulitis of right lower limb (22) Bacterial infection due to Morganella morganii Current visit: Yes Status: Acute Category: Medical Code(s): A49.8 - Other bacterial infections of unspecified site - Assessment and plan all Dx Assessment and Plan for all problems:: BASED ON VANCOMYCIN TROUGH LEVEL AND PATIENT FACTORS, RECOMMEND CONTINUING VANCOMYCIN 1500 MG IV Q18H. PHARMACY WILL CONTINUE TO MONITOR DAILY AND ADJUST APPROPRIATE.
--- NOTE | 2019-08-19 12:22 | Progress Note ---
Internal Medicine - PN: Subj *Date: 08/19/19 *Time: 12:21 Exam Vital signs and Labs for Last 24 Hours: Temp Pulse Resp BP Pulse Ox 97.5 F L 80 16 114/72 98 08/19/19 08:00 08/19/19 08:00 08/19/19 08:00 08/19/19 08:00 08/19/19 08:00 Laboratory Results - last 24 hr 08/18/19 16:16: POC Glucose 352 H* 08/18/19 20:02: POC Glucose 322 H* 08/19/19 05:19: POC Glucose 214 H 08/19/19 07:09: Vancomycin Trough 15.3 H 08/19/19 07:09: WBC 8.9 D, RBC 4.30, Hgb 11.0 L, Hct 35.3 L, MCV 82.1, MCH 25.5 L, MCHC 31.1 L, RDW 17.0, Plt Count 474 H D, MPV 8.4, Neut % (Auto) 72.1, Lymph % (Auto) 17.9, [place] % (Auto) 6.2, Eos % (Auto) 3.3, Baso % (Auto) 0.5, Neut # (Auto) 6.5, Lymph # (Auto) 1.6, [place] # (Auto) 0.6, Eos # (Auto) 0.3, Baso # (Auto) 0.0 08/19/19 07:09: PT 11.1, INR 1.07 08/19/19 07:09: Sodium 137, Potassium 4.0, Chloride 98, Carbon Dioxide 30, Anion Gap 13.0, BUN 18 H D, Creatinine 0.90 D, Estimated Creat Clear 87, Estimated GFR 66, Est GFR ( Amer) 80 D, Glucose 170 H, Calcium 9.1 08/19/19 10:58: POC Glucose 279 H I & O for Last 24 hours: Intake & Output 08/16/19 08/17/19 08/18/19 08/19/19 23:59 23:59 23:59 23:59 Intake Total 2470 / 2470 1070 / 1070 1284 / 1284 680 / 680 Output Total 2024 700 / 700 1450 / 1450 Balance 445 / 445 370 / 370 -166 / -166 680 / 680 Weight 77.337 kg 78.075 kg 76.402 kg 74.644 kg Microbiology Reports for the Last 24 Hours: Microbiology 08/16/19 08:00 Foot,Right - Drainage Gram Stain - Final 08/16/19 08:00 Foot,Right - Drainage Wound Culture - Final Morganella morganii Assessment and Plan (1) Lethargic Current visit: Yes Status: Acute Category: Medical Code(s): R53.83 - Other fatigue (2) Bradycardia Current visit: Yes Status: Acute Category: Medical Code(s): R00.1 - Bradycardia, unspecified (3) Elevated lactic acid level Current visit: Yes Status: Acute Category: Medical Code(s): R79.89 - Other specified abnormal findings of blood chemistry (4) Arterial insufficiency of lower extremity Current visit: No Status: Acute Category: Medical Code(s): I73.9 - Peripheral vascular disease, unspecified (5) Hypotension Current visit: No Status: Acute Qualifiers: Hypotension type: unspecified hypotension type Qualified Code(s): I95.9 - Hypotension, unspecified Category: Medical Code(s): I95.9 - Hypotension, unspecified (6) Anemia Current visit: No Status: Chronic Qualifiers: Anemia type: unspecified type Qualified Code(s): D64.9 - Anemia, unspecified Category: Medical Code(s): D64.9 - Anemia, unspecified (7) Coronary arteriosclerosis Current visit: No Status: Chronic Category: Medical Code(s): I25.10 - Atherosclerotic heart disease of [place] coronary artery without angina pectoris (8) Diabetes mellitus Current visit: No Status: Chronic Qualifiers: Diabetes mellitus type: type 2 Diabetes mellitus long term care social worker insulin use: without mcc use Diabetes mellitus complication status: with neurologic complications Diabetes mellitus complication detail: with polyneuropathy Qualified Code(s): E11.42 - Type 2 diabetes mellitus with diabetic polyneuropathy Category: Medical Code(s): E11.9 - Type 2 diabetes mellitus without complications (9) Hemiparesis affecting left side as late effect of cerebrovascular accident Current visit: No Status: Chronic Category: Medical Code(s): I69.354 - Hemiplegia and hemiparesis following cerebral infarction affecting left non- dominant side (10) History of CVA (cerebrovascular accident) Current visit: No Status: Chronic Category: Medical Code(s): Z86.73 - Personal history of transient ischemic attack (TIA), and cerebral infarction without residual deficits (11) History of left below knee amputation Current visit: No Status: Chronic Category: Medical Code(s): Z89.512 - Acquired absence of left leg below knee (12) Hypertensive heart disease without heart failure Current visit: No Status: Chronic Category: Medical Code(s): I11.9 - Hypertensive heart disease without heart failure (13) Left spastic hemiparesis Current visit: No Status: Chronic Category: Medical Code(s): G81.14 - Spastic hemiplegia affecting left nondominant side (14) 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 designer 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 Current visit: No Status: Chronic Category: Medical Code(s): Z79.01 - 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 designer (current) use of 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 (15) Peripheral arterial occlusive disease Current visit: No Status: Chronic Category: Medical Code(s): I77.9 - Disorder of arteries and arterioles, unspecified (16) Hypoxia Current visit: Yes Status: Acute Category: Medical Code(s): R09.02 - Hypoxemia (17) Troponin I above reference range Current visit: Yes Status: Acute Category: Medical Code(s): R79.89 - Other specified abnormal findings of blood chemistry (18) Status post transmetatarsal amputation of right foot Start date: 07/30/19 Current visit: Yes Status: Acute Category: Surgical Code(s): Z89.431 - Acquired absence of right foot (19) Discoloration of skin of foot Current visit: No Status: Acute Category: Medical Code(s): L81.9 - Disorder of pigmentation, unspecified (20) Sepsis Current visit: Yes Status: Acute Qualifiers: Severe sepsis shock status: without septic shock Category: Medical Code(s): A41.9 - Sepsis, unspecified organism (21) Cellulitis of right foot Current visit: Yes Status: Acute Category: Medical Code(s): L03.115 - Cellulitis of right lower limb (22) Bacterial infection due to Morganella morganii Current visit: Yes Status: Acute Category: Medical Code(s): A49.8 - Other bacterial infections of unspecified site The patient's infection will respond to the chosen ABx?: Yes Is the patient receiving the right drug, dose, and route?: Yes Could a more targeted ABx be ordered?: No
[2019-08-20 06:22] LABS: Basophils # 0.1 K/mm3 (0-0.2); Basophils % 0.6 % (0.1-2.0); Eosinophils # 0.3 K/mm3 (0.0-0.4); Eosinophils % 3.1 % (0.1-12.0); Hematocrit 35.7 % (37.0-47.0); Hemoglobin 11.1 g/dL (12.2-16.2); Lymphocytes # 1.9 K/mm3 (0.7-4.5); Lymphocytes % 21.1 % (10-50); Mean Corpuscular HGB Conc 31.1 g/dL (31.8-35.4); Mean Platelet Volume 8.5 fl (7.4-10.4); Monocytes # 0.5 K/mm3 (0.1-1.0); Monocytes % 5.4 % (1.7-9.3); Neutrophils # 6.2 K/mm3 (1.8-7.8); Neutrophils % 69.7 % (37.0-80.0); Platelet Count 498 K/mm3 (142-424); Red Blood Count 4.36 M/mm3 (4.20-5.40); Red Cell Distribution Width 17.1 % (11.5-17.5); White Blood Count 8.9 K/mm3 (4.8-10.8)
[2019-08-20 06:30] LABS: INR 1.17 (0.9-1.1); Prothrombin Time 12.1 seconds (9.4-11.8)
[2019-08-20 06:31] LABS: Anion Gap 11.1 mEq/L (5-15)
[2019-08-20 06:32] LABS: Calcium 9.3 mg/dl (8.4-10.2)
--- NOTE | 2019-08-20 08:18 | Progress Note ---
<Keisha Pedersen - Last Filed: 08/20/19 08:14> Internal Medicine - PN: Subj *Date: 08/20/19 *Time: 08:14 Interval history: Patient states she slept well last night and actually feels pretty good. She has some pain in the right foot but it is better. She was up in the chair yesterday. She denies chest pain and shortness of breath. She was she is eating without difficulty. Wound VAC remains in place. Hemoglobin hematocrit have been stable. Renal function is good. [facility]. Exam Vital signs and Labs for Last 24 Hours: Temp Pulse Resp BP Pulse Ox 98.3 F 78 16 116/67 98 08/20/19 04:00 08/20/19 04:00 08/20/19 04:00 08/20/19 04:00 08/20/19 04:00 Laboratory Results - last 24 hr 08/19/19 07:09: Vancomycin Trough 15.3 H 08/19/19 10:58: POC Glucose 279 H 08/19/19 15:43: POC Glucose 333 H* 08/19/19 16:33: POC Glucose 313 H* 08/19/19 20:57: POC Glucose 309 H* 08/20/19 05:05: POC Glucose 208 H 08/20/19 06:08: WBC 8.9, RBC 4.36, Hgb 11.1 L, Hct 35.7 L, MCV 82.0, MCH 25.5 L, MCHC 31.1 L, RDW 17.1, Plt Count 498 H, MPV 8.5, Neut % (Auto) 69.7, Lymph % (Auto) 21.1, [place] % (Auto) 5.4, Eos % (Auto) 3.1, Baso % (Auto) 0.6, Neut # (Auto) 6.2, Lymph # (Auto) 1.9, [place] # (Auto) 0.5, Eos # (Auto) 0.3, Baso # (Auto) 0.1 08/20/19 06:08: PT 12.1 H, INR 1.17 H 08/20/19 06:08: Sodium 136, Potassium 4.1, Chloride 98, Carbon Dioxide 31 H, Anion Gap 11.1, BUN 18 H, Creatinine 0.90, Estimated Creat Clear 84, Estimated GFR 66, Est GFR ( Amer) 80, Glucose 185 H, Calcium 9.3 I & O for Last 24 hours: Intake & Output 08/17/19 08/18/19 08/19/19 08/20/19 11:59 11:59 11:59 11:59 Intake Total 1320 / 1320 1190 / 1190 1484 / 1484 1660 / 1660 Output Total 1450 / 1450 700 / 700 2100 / 2100 Balance 1320 / 1320 -260 / -260 784 / 784 -440 / -440 Weight 172 lb 2 oz 168 lb 7 oz 164 lb 9 oz 159 lb 9 oz Microbiology Reports for the Last 24 Hours: Microbiology 08/14/19 16:35 Blood Blood Culture - Final NO GROWTH AFTER 5 DAYS 08/14/19 16:35 Blood Blood Culture - Final NO GROWTH AFTER 5 DAYS 08/16/19 08:00 Foot,Right - Drainage Gram Stain - Final 08/16/19 08:00 Foot,Right - Drainage Wound Culture - Final Morganella morganii - Constitutional no acute distress Comments: Is completing her breakfast. - *Routine Respiratory Exam Present: CTA bilaterally (Anteriorly and posteriorly) - *Routine Cardiovascular Exam Present: RRR, murmur - *Routine Abdominal Exam Present: soft, normoactive bowel sounds, obese. Absent: tenderness - *Routine Extremities Exam Absent: edema Comments: Dressing on right foot is clean and dry. Wound VAC in place. Some bloody drainage. - *Routine Neurological Exam Present: alert, oriented X3 Assessment and Plan (1) Lethargic Current visit: Yes Status: Acute Category: Medical Code(s): R53.83 - Other fatigue (2) Bradycardia Current visit: Yes Status: Acute Category: Medical Code(s): R00.1 - Bradycardia, unspecified (3) Elevated lactic acid level Current visit: Yes Status: Acute Category: Medical Code(s): R79.89 - Other specified abnormal findings of blood chemistry (4) Arterial insufficiency of lower extremity Current visit: No Status: Acute Category: Medical Code(s): I73.9 - Peripheral vascular disease, unspecified (5) Hypotension Current visit: No Status: Acute Qualifiers: Hypotension type: unspecified hypotension type Qualified Code(s): I95.9 - Hypotension, unspecified Category: Medical Code(s): I95.9 - Hypotension, unspecified (6) Anemia Current visit: No Status: Chronic Qualifiers: Anemia type: unspecified type Qualified Code(s): D64.9 - Anemia, unspecified Category: Medical Code(s): D64.9 - Anemia, unspecified (7) Coronary arteriosclerosis Current visit: No Status: Chronic Category: Medical Code(s): I25.10 - Atherosclerotic heart disease of [place] coronary artery without angina pectoris (8) Diabetes mellitus Current visit: No Status: Chronic Qualifiers: Diabetes mellitus type: type 2 Diabetes mellitus assistant terminal manager insulin use: without assistant terminal manager use Diabetes mellitus complication status: with neurologic complications Diabetes mellitus complication detail: with polyneuropathy Qualified Code(s): E11.42 - Type 2 diabetes mellitus with diabetic polyneuropathy Category: Medical Code(s): E11.9 - Type 2 diabetes mellitus without complications (9) Hemiparesis affecting left side as late effect of cerebrovascular accident Current visit: No Status: Chronic Category: Medical Code(s): I69.354 - Hemiplegia and hemiparesis following cerebral infarction affecting left non- dominant side (10) History of CVA (cerebrovascular accident) Current visit: No Status: Chronic Category: Medical Code(s): Z86.73 - Personal history of transient ischemic attack (TIA), and cerebral infarction without residual deficits (11) History of left below knee amputation Current visit: No Status: Chronic Category: Medical Code(s): Z89.512 - Acquired absence of left leg below knee (12) Hypertensive heart disease without heart failure Current visit: No Status: Chronic Category: Medical Code(s): I11.9 - Hypertensive heart disease without heart failure (13) Left spastic hemiparesis Current visit: No Status: Chronic Category: Medical Code(s): G81.14 - Spastic hemiplegia affecting left nondominant side (14) senior care 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 Current visit: No Status: Chronic Category: Medical Code(s): Z79.01 - vermin exterminator (current) use of 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 (15) Peripheral arterial occlusive disease Current visit: No Status: Chronic Category: Medical Code(s): I77.9 - Disorder of arteries and arterioles, unspecified (16) Hypoxia Current visit: Yes Status: Acute Category: Medical Code(s): R09.02 - Hypoxemia (17) Troponin I above reference range Current visit: Yes Status: Acute Category: Medical Code(s): R79.89 - Other specified abnormal findings of blood chemistry (18) Status post transmetatarsal amputation of right foot Start date: 07/30/19 Current visit: Yes Status: Acute Category: Surgical Code(s): Z89.431 - Acquired absence of right foot (19) Discoloration of skin of foot Current visit: No Status: Acute Category: Medical Code(s): L81.9 - Disorder of pigmentation, unspecified (20) Sepsis Current visit: Yes Status: Acute Qualifiers: Severe sepsis shock status: without septic shock Category: Medical Code(s): A41.9 - Sepsis, unspecified organism (21) Cellulitis of right foot Current visit: Yes Status: Acute Category: Medical Code(s): L03.115 - Cellulitis of right lower limb (22) Bacterial infection due to Morganella morganii Current visit: Yes Status: Acute Category: Medical Code(s): A49.8 - Other bacterial infections of unspecified site - Assessment and plan all Dx Assessment and Plan for all problems:: Plan is for patient to return back to [place] for ongoing IV antibiotics per PICC line, physical therapy, and wound care. <Shawn Alva - Last Filed: 08/20/19 09:00> Internal Medicine - PN: Subj *Date: 08/20/19 *Time: 08:59 Exam Vital signs and Labs for Last 24 Hours: Temp Pulse Resp BP Pulse Ox 98.3 F 78 16 116/67 98 08/20/19 04:00 08/20/19 04:00 08/20/19 04:00 08/20/19 04:00 08/20/19 04:00 Laboratory Results - last 24 hr 08/19/19 10:58: POC Glucose 279 H 08/19/19 15:43: POC Glucose 333 H* 08/19/19 16:33: POC Glucose 313 H* 08/19/19 20:57: POC Glucose 309 H* 08/20/19 05:05: POC Glucose 208 H 08/20/19 06:08: WBC 8.9, RBC 4.36, Hgb 11.1 L, Hct 35.7 L, MCV 82.0, MCH 25.5 L, MCHC 31.1 L, RDW 17.1, Plt Count 498 H, MPV 8.5, Neut % (Auto) 69.7, Lymph % (Auto) 21.1, [place] % (Auto) 5.4, Eos % (Auto) 3.1, Baso % (Auto) 0.6, Neut # (Auto) 6.2, Lymph # (Auto) 1.9, [place] # (Auto) 0.5, Eos # (Auto) 0.3, Baso # (Auto) 0.1 08/20/19 06:08: PT 12.1 H, INR 1.17 H 08/20/19 06:08: Sodium 136, Potassium 4.1, Chloride 98, Carbon Dioxide 31 H, Anion Gap 11.1, BUN 18 H, Creatinine 0.90, Estimated Creat Clear 84, Estimated GFR 66, Est GFR ( Amer) 80, Glucose 185 H, Calcium 9.3 I & O for Last 24 hours: Intake & Output 08/17/19 08/18/19 08/19/19 08/20/19 23:59 23:59 23:59 23:59 Intake Total 1070 / 1070 1284 / 1284 1989 350 / 350 Output Total 700 / 700 1450 / 1450 500 / 1700 1600 / 1600 Balance 370 / 370 -166 / -166 1490 / 290 -1250 / -1250 Weight 172 lb 2 oz 168 lb 7 oz 164 lb 9 oz 159 lb 9 oz Microbiology Reports for the Last 24 Hours: Microbiology 08/14/19 16:35 Blood Blood Culture - Final NO GROWTH AFTER 5 DAYS 08/14/19 16:35 Blood Blood Culture - Final NO GROWTH AFTER 5 DAYS 08/16/19 08:00 Foot,Right - Drainage Gram Stain - Final 08/16/19 08:00 Foot,Right - Drainage Wound Culture - Final Morganella morganii Assessment and Plan (1) Lethargic Current visit: Yes Status: Acute Category: Medical Code(s): R53.83 - Other fatigue (2) Bradycardia Current visit: Yes Status: Acute Category: Medical Code(s): R00.1 - Bradycardia, unspecified (3) Elevated lactic acid level Current visit: Yes Status: Acute Category: Medical Code(s): R79.89 - Other specified abnormal findings of blood chemistry (4) Arterial insufficiency of lower extremity Current visit: No Status: Acute Category: Medical Code(s): I73.9 - Peripheral vascular disease, unspecified (5) Hypotension Current visit: No Status: Acute Qualifiers: Hypotension type: unspecified hypotension type Qualified Code(s): I95.9 - Hypotension, unspecified Category: Medical Code(s): I95.9 - Hypotension, unspecified (6) Anemia Current visit: No Status: Chronic Qualifiers: Anemia type: unspecified type Qualified Code(s): D64.9 - Anemia, unspecified Category: Medical Code(s): D64.9 - Anemia, unspecified (7) Coronary arteriosclerosis Current visit: No Status: Chronic Category: Medical Code(s): I25.10 - Atherosclerotic heart disease of [place] coronary artery without angina pectoris (8) Diabetes mellitus Current visit: No Status: Chronic Qualifiers: Diabetes mellitus type: type 2 Diabetes mellitus [facility] insulin use: without assistant terminal manager use Diabetes mellitus complication status: with neurologic complications Diabetes mellitus complication detail: with polyneuropathy Qualified Code(s): E11.42 - Type 2 diabetes mellitus with diabetic polyneuropathy Category: Medical Code(s): E11.9 - Type 2 diabetes mellitus without complications (9) Hemiparesis affecting left side as late effect of cerebrovascular accident Current visit: No Status: Chronic Category: Medical Code(s): I69.354 - He miplegia and hemiparesis following cerebral infarction affecting left non- dominant side (10) History of CVA (cerebrovascular accident) Current visit: No Status: Chronic Category: Medical Code(s): Z86.73 - Personal history of transient ischemic attack (TIA), and cerebral infarction without residual deficits (11) History of left below knee amputation Current visit: No Status: Chronic Category: Medical Code(s): Z89.512 - Acquired absence of left leg below knee (12) Hypertensive heart disease without heart failure Current visit: No Status: Chronic Category: Medical Code(s): I11.9 - Hypertensive heart disease without heart failure (13) Left spastic hemiparesis Current visit: No Status: Chronic Category: Medical Code(s): G81.14 - Spastic hemiplegia affecting left nondominant side (14) 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 Current visit: No Status: Chronic Category: Medical Code(s): Z79.01 - senior care (current) use of 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 (15) Peripheral arterial occlusive disease Current visit: No Status: Chronic Category: Medical Code(s): I77.9 - D isorder of arteries and arterioles, unspecified (16) Hypoxia Current visit: Yes Status: Acute Category: Medical Code(s): R09.02 - Hypoxemia (17) Troponin I above reference range Current visit: Yes Status: Acute Category: Medical Code(s): R79.89 - Other specified abnormal findings of blood chemistry (18) Status post transmetatarsal amputation of right foot Start date: 07/30/19 Current visit: Yes Status: Acute Category: Surgical Code(s): Z89.431 - Acquired absence of right foot (19) Discoloration of skin of foot Current visit: No Status: Acute Category: Medical Code(s): L81.9 - Disorder of pigmentation, unspecified (20) Sepsis Current visit: Yes Status: Acute Qualifiers: Severe sepsis shock status: without septic shock Category: Medical Code(s): A41.9 - Sepsis, unspecified organism (21) Cellulitis of right foot Current visit: Yes Status: Acute Category: Medical Code(s): L03.115 - Cellulitis of right lower limb (22) Bacterial infection due to Morganella morganii Current visit: Yes Status: Acute Category: Medical Code(s): A49.8 - Other bacterial infections of unspecified site - Assessment and plan all Dx Assessment and Plan for all problems:: Saw patient, podiatry is considering further debridement, no plan to discharge p atient today.
--- NOTE | 2019-08-20 10:15 | Progress Note ---
Subjective Date: 08/20/19 Time: 08:10 Principal diagnosis: Right foot gangrene Interval history: Patient is resting comfortably in the bed, just finished breakfast with the leg elevated. Wound VAC is in place. Patient denies pain to the right foot. Patient states she has done well over the weekend. We will remove the wound VAC and assess the site this morning and clean the area with Betadine 4 x 4's. PN: Obj Ex Vital signs: Temp Pulse Resp BP Pulse Ox 98.2 F 75 18 122/60 99 08/20/19 08:00 08/20/19 08:00 08/20/19 08:00 08/20/19 08:00 08/20/19 08:00 - Constitutional no acute distress - Routine HEENT Exam Head: Present: normocephalic Eye: Present: PERRL ENT: Present: mucous membranes moist - Routine Neck Exam Present: full ROM. Absent: JVD - Routine Respiratory Exam Absent: accessory muscle use, respiratory distress, wheezes - Routine Cardiovascular Exam Present: RRR. Absent: JVD - Routine Abdominal Exam Present: soft - Routine Extremities Exam Present: edema, amputation - Detailed Lower Extremity Exam Top foot image: 1 - 1 - Right TMA noted. Wound vac in place. Some serosanginous drainage noted to VAC canister. Skin is pink, melissa-incisional erythema. Small plantar 3rd metatarsal bruise. Dorsal midfoot small circular discoloration, <0.5x0.5cm. No purulence. No POP. - Routine Back/Spine/Pelvis Exam Back/Spine: Present: full ROM - Routine Skin Exam Present: dry - Routine Neurological Exam Present: alert - Routine Psychiatric Exam Present: normal affect Progress Note: A&P (1) Lethargic Status: Acute Current Visit: Yes (2) Bradycardia Status: Acute Current Visit: Yes (3) Elevated lactic acid level Status: Acute Current Visit: Yes (4) Arterial insufficiency of lower extremity Status: Acute Current Visit: No (5) Hypotension Status: Acute Current Visit: No (6) Anemia Status: Chronic Current Visit: No (7) Coronary arteriosclerosis Status: Chronic Current Visit: No (8) Diabetes mellitus Status: Chronic Current Visit: No (9) Hemiparesis affecting left side as late effect of cerebrovascular accident Status: Chronic Current Visit: No (10) History of CVA (cerebrovascular accident) Status: Chronic Current Visit: No (11) History of left below knee amputation Status: Chronic Current Visit: No (12) Hypertensive heart disease without heart failure Status: Chronic Current Visit: No (13) Left spastic hemiparesis Status: Chronic Current Visit: No (14) MCC 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 Status: Chronic Current Visit: No (15) Peripheral arterial occlusive disease Status: Chronic Current Visit: No (16) Hypoxia Status: Acute Current Visit: Yes (17) Troponin I above reference range Status: Acute Current Visit: Yes (18) Status post transmetatarsal amputation of right foot Status: Acute Current Visit: Yes (19) Discoloration of skin of foot Status: Acute Current Visit: No (20) Sepsis Status: Acute Current Visit: Yes (21) Cellulitis of right foot Status: Acute Current Visit: Yes (22) Bacterial infection due to Morganella morganii Status: Acute Current Visit: Yes Assessment and Plan for All Diagnoses:: Assessment and Plan for All Diagnoses:: 07/30/19: s/p right transmetatarsal amputation (TMA), tendo Achilles lengthening (CASSANDRA) POD # 3W 07/30/19, intra-op right toe bone: Skin and subcutaneous tissue with gangrenous necrosis, extending to the surgical margin. Underlying bone with osteonecrosis, negative for acute osteomyelitis. Intra-op bone, right foot metatarsal margin: Fragments of bone, negative for acu te osteomyelitis 07/30/19, wound culture right 4th toe: Streptococcus sanguinus, GPC 07/30/19, bone culture right 2nd toe: Staphylococcus epidermidis, Kingella denitrificans S. epidermidis: MRSA and resistant to erythromycin, oxacillin, penicillin. Susceptible to clindamycin, daptomycin, gentamicin, rifampin, tetracycline and vancomycin New wound culture, right foot 08/16/19: NOS The wound VAC was removed and skin evaluated to the right foot. There was a little malodor noted initially when the wound VAC was removed. Skin checked. There is a small area of bruising noted to the plantar aspect of the third metatarsal. Some serosanguineous drainage noted in the VAC canister, but none was noted when the foot was squeezed. Wound bed looked pink, the skin edges sen rrounding the suture line and jeremy look somewhat improved from on Tuesday was less dark and not crispy at all. The skin was more soft and a little macerated from the wound VAC but otherwise noted improvement. No pain to the foot. The foot was cleaned with Betadine and then was redressed with Betadine soaked 4 x 4 gauze, dry 4 x 4 gauze, Kerlix, and Frank bandage reapplied to the wound. The wound VAC will need to be reapplied by wound care today for the patient. Patient is to keep this dressing clean, dry, and intact; do not get wet in shower. Minimize weight bearing. Elevate and Motrin for pain and swelling. Hold ice. Plan: 1. Podiatry did perform the wound VAC removal, wound care dressing change. Wound care will need to reapply the VAC for the patient today. -Wound vac to right foot @125mmHg medium continuous. VAC changes 3 times weekly. 2. If for some reason wound care is unable to reapply the wound VAC for the patient prior to transfer back to the long-term, it would be okay to leave her with the Betadine soaked 4 x [address] until she returns to the long-term to have the wound VAC reapplied. 3. As for myself and Dr. Calloway we feel the wound has made some improvement with the wound VAC therapy over the weekend. There will be no surgery on the patient today or debridement on the right foot. We plan to continue the wound VAC therapy as mentioned above and reevaluate the situation next week when the patient returns for follow-up visit. 4. We will have the patient return back to podiatry clinic next week for an appointment and wound care on the right foot. 5. NWB to right foot, unless to transition to wheelchair (use fracture boot) 5. Continue IV Abx, PICC x 4 more weeks
--- NOTE | 2019-08-20 12:07 | Discharge Summary ---
General - General Admission date:: 08/14/19 Discharge date: 08/20/19 HPI HPI: Prema is a 53-year-old female who presented to the office of [facility] after being seen in [facility] podiatry clinic. She was noted to be lethargic and have a low blood pressure and heart rate. She had been seen in [facility] emergency room the previous night for similar symptoms as well as low-grade fever around 100. She was found to be anemic at that time with an elevated lactic acid level. She was given IV fluids and discharged back to the long-term. She had been in [facility] for ongoing rehab and IV antibiotic treatment with IV vancomycin. She was noted to have a PICC line for this treatment for wound/bone infection from recent partial right foot amputation. Hemoglobin was noted to be less than 7 After being seen in the emergency room she did improve somewhat with a better blood pressure and was afebrile yesterday morning. She was more alert but this progressively worsened throughout the day according to the patient. She was admitted for further evaluation and treatment from the office of [facility] with IV fluids and additional IV antibiotics. The morning after admission the patient stated that she felt better. She was hungry. She denied chest pain and shortness of breath. She denied cough. She did have some epigastric discomfort but denied nausea and vomiting and diarrhea. She received 3 units of packed red blood cells. Blood pressure was stable and heart rate was in the 70s and 80s during the night. She did drop her O2 sats during the night and was placed on 1 L of oxygen per nasal cannula. This was off in the AM and her O2 sats were good. Hemoglobin after PRBC infusion was 10.1 with a hematocrit of 31.8. Electrolytes were normal; BUN was 12 and creatinine 0.8. Lactic acid returned to normal. Troponin I was elevated on admission at 0.33; Chest x-ray did reveal patchy density in the right lung base posssibly due to atelectasis or infiltrate which was a new development. Hospital Course Hospital Course: On admission patient was started on additional antibiotics of cefepime and gentamicin plus the IV vancomycin due to possible sepsis. She had 3 units of packed red blood cells as well. She was followed by Dr. Calloway during this admission with daily dressing changes. She noted no purulence but with erythema and ecchymosis localized to the TMA incision; also gangrenous changes with dusky discoloration noted with no drainage and no ascending cellulitis. With dressing changes appearance of the wound improved. Wound was debrided and new wound cultures obtained. Wound VAC was placed Patient did begin to feel better and mental status was back to baseline. She was eating as usual and sleeping well. Her pain did improve. Troponin was trending downward and repeat chest x-ray showed improved congestive heart failure. Heart rate and blood pressure returned to normal and remained stable. H&H remained stable without any noted bleeding. Stool for occult blood was negative. Discharge planning was initiated. Wound culture eventually grew out Morganella morganii resistant to gentamicin. This was discontinued and patient continued with the IV cefepime and vancomycin. Patient did sit up in a chair. She continually denied any chest pain and shortness of breath. Hemoglobin and hematocrit remained stable. Renal function was good. And on 08/20/2019 with wound dressing changes Wound VAC was discontinued. She was felt to be stable and satisfactory to be transferred back to [facility] for ongoing wound care, IV antibiotics, and continued rehab. Patient will remain on vancomycin and cefepime per her PICC line. Wound VAC will be replaced in the long-term. She will have daily dressing changes. Follow-up will continue at [place] per Dr. Alva. She will also continue with sliding scale as well as her daily insulin, Coumadin and Plavix. We will continue to monitor labs. Objective Vital signs: Temp Pulse Resp BP Pulse Ox 98.2 F 75 18 122/60 99 08/20/19 08:00 08/20/19 08:00 08/20/19 08:00 08/20/19 08:00 08/20/19 08:00 Narrative: Exam Vital signs and Labs for Last 24 Hours: Temp Pulse Resp BP Pulse Ox 98.3 F 78 16 116/67 98 08/20/19 04:00 08/20/19 04:00 08/20/19 04:00 08/20/19 04:00 08/20/19 04:00 Laboratory Results - last 24 hr 08/19/19 07:09: Vancomycin Trough 15.3 H 08/19/19 10:58: POC Glucose 279 H 08/19/19 15:43: POC Glucose 333 H* 08/19/19 16:33: POC Glucose 313 H* 08/19/19 20:57: POC Glucose 309 H* 08/20/19 05:05: POC Glucose 208 H 08/20/19 06:08: WBC 8.9, RBC 4.36, Hgb 11.1 L, Hct 35.7 L, MCV 82.0, MCH 25.5 L, MCHC 31.1 L, RDW 17.1, Plt Count 498 H, MPV 8.5, Neut % (Auto) 69.7, Lymph % (Auto) 21.1, Upton % (Auto) 5.4, Eos % (Auto) 3.1, Baso % (Auto) 0.6, Neut # (Auto) 6.2, Lymph # (Auto) 1.9, Upton # (Auto) 0.5, Eos # (Auto) 0.3, Baso # (Auto) 0.1 08/20/19 06:08: PT 12.1 H, INR 1.17 H 08/20/19 06:08: Sodium 136, Potassium 4.1, Chloride 98, Carbon Dioxide 31 H, Anion Gap 11.1, BUN 18 H, Creatinine 0.90, Estimated Creat Clear 84, Estimated GFR 66, Est GFR ( Amer) 80, Glucose 185 H, Calcium 9.3 I & O for Last 24 hours: Intake & Output 08/17/19 08/18/19 08/19/19 08/20/19 11:59 11:59 11:59 11:59 Intake Total 1320 / 1320 1190 / 1190 1484 / 1484 1660 / 1660 Output Total 1450 / 1450 700 / 700 2100 / 2100 Balance 1320 / 1320 -260 / -260 784 / 784 -440 / -440 Weight 172 lb 2 oz 168 lb 7 oz 164 lb 9 oz 159 lb 9 oz Microbiology Reports for the Last 24 Hours: Microbiology 08/14/19 16:35 Blood Blood Culture - Final NO GROWTH AFTER 5 DAYS 08/14/19 16:35 Blood Blood Culture - Final NO GROWTH AFTER 5 DAYS 08/16/19 08:00 Foot,Right - Drainage Gram Stain - Final 08/16/19 08:00 Foot,Right - Drainage Wound Culture - Final Morganella morganii - Constitutional no acute distress Comments: Is completing her breakfast. - *Routine Respiratory Exam Present: CTA bilaterally (Anteriorly and posteriorly) - *Routine Cardiovascular Exam Present: RRR, murmur - *Routine Abdominal Exam Present: soft, normoactive bowel sounds, obese. Absent: tenderness - *Routine Extremities Exam Absent: edema Comments: Dressing on right foot is clean and dry. Wound VAC in place. Some bloody drainage. - *Routine Neurological Exam Present: alert, oriented X3 Results Completed studies during hospitalization [Text1]: Chest x-ray 08/14/2019 IMPRESSION: Patchy density right lung base which may be due to an area of atelectasis or infiltrate which has developed in the interval Chest x-ray 08/15/2019 IMPRESSION: Cardiomegaly with mild CHF, improvement in right basilar airspace disease X-ray of the right foot 08/15/2019 FINDINGS: Status post transmetatarsal amputation. Surgical clips remain present at the amputation site. No bony erosive process evident at the amputation site. Overlying bandage artifact is present. No obvious soft tissue gas. There is generalized vascular calcification IMPRESSION: Status post transmetatarsal amputation as described Labs on day of discharge: Labs from last 24 hours 08/20/19 08/20/19 08/20/19 11:13 06:08 06:08 WBC RBC Hgb Hct MCV MCH MCHC RDW Plt Count MPV Neut % (Auto) Lymph % (Auto) Upton % (Auto) Eos % (Auto) Baso % (Auto) Neut # (Auto) Lymph # (Auto) Upton # (Auto) Eos # (Auto) Baso # (Auto) PT 12.1 H INR 1.17 H Sodium 136 Potassium 4.1 Chloride 98 Carbon Dioxide 31 H Anion Gap 11.1 BUN 18 H Creatinine 0.90 Estimated Creat Clear 84 Estimated GFR 66 Est GFR ( Amer) 80 Glucose 185 H POC Glucose 365 H* Calcium 9.3 08/20/19 08/20/19 08/19/19 06:08 05:05 20:57 WBC 8.9 RBC 4.36 Hgb 11.1 L Hct 35.7 L MCV 82.0 MCH 25.5 L MCHC 31.1 L RDW 17.1 Plt Count 498 H MPV 8.5 Neut % (Auto) 69.7 Lymph % (Auto) 21.1 Upton % (Auto) 5.4 Eos % (Auto) 3.1 Baso % (Auto) 0.6 Neut # (Auto) 6.2 Lymph # (Auto) 1.9 Upton # (Auto) 0.5 Eos # (Auto) 0.3 Baso # (Auto) 0.1 PT INR Sodium Potassium Chloride Carbon Dioxide Anion Gap BUN Creatinine Estimated Creat Clear Estimated GFR Est GFR ( Amer) Glucose POC Glucose 208 H 309 H* Calcium 08/19/19 08/19/19 08/19/19 16:33 15:43 10:58 WBC RBC Hgb Hct MCV MCH MCHC RDW Plt Count MPV Neut % (Auto) Lymph % (Auto) Upton % (Auto) Eos % (Auto) Baso % (Auto) Neut # (Auto) Lymph # (Auto) Upton # (Auto) Eos # (Auto) Baso # (Auto) PT INR Sodium Potassium Chloride Carbon Dioxide Anion Gap BUN Creatinine Estimated Creat Clear Estimated GFR Est GFR ( Amer) Glucose POC Glucose 313 H* 333 H* 279 H Calcium DS: Diagnosis - Discharge Diagnosis (1) Lethargic Status: Acute (2) Elevated lactic acid level Status: Acute (3) Arterial insufficiency of lower extremity Status: Acute (4) Hypotension Status: Acute (5) Anemia Status: Chronic (6) Coronary arteriosclerosis Status: Chronic (7) Diabetes mellitus Status: Chronic (8) Hemiparesis affecting left side as late effect of cerebrovascular accident Status: Chronic (9) History of CVA (cerebrovascular accident) Status: Chronic (10) History of left below knee amputation Status: Chronic (11) Hypertensive heart disease without heart failure Status: Chronic (12) Left spastic hemiparesis Status: Chronic (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 (14) Peripheral arterial occlusive disease Status: Chronic (15) Hypoxia Status: Acute (16) Troponin I above reference range Status: Acute (17) Status post transmetatarsal amputation of right foot Status: Acute (18) Discoloration of skin of foot Status: Acute (19) Sepsis Status: Acute (20) Cellulitis of right foot Status: Acute (21) Bacterial infection due to Morganella morganii Status: Acute (22) Bradycardia Status: Acute Discharge Plan - Patient Discharge Instructions Patient Instructions: Lactate Dehydrogenase Isoenzymes, Coronary Artery Disease, Bradycardia, DI for Coronary Artery Disease, DI for Bradycardia - Follow up Plan Home Medications: Home Medications Medication Instructions Recorded Confirmed Type amiloride 5 mg tablet 5 mg PO DAILY 09/22/17 08/15/19 History aspirin 25 mg-dipyridamole 200 mg 1 cap PO BID 09/22/17 08/15/19 History capsule,ext.release 12 hr multiphase baclofen 10 mg tablet 10 mg PO DAILY 09/22/17 08/15/19 History clopidogrel 75 mg tablet 75 mg PO DAILY 09/22/17 08/15/19 History glimepiride 2 mg tablet 2 mg PO DAILY 09/22/17 08/15/19 History metolazone 5 mg tablet 5 mg PO DAILY 09/22/17 08/15/19 History Citalopram Hydrobromide [Celexa 20 mg PO DAILY 11/20/17 08/15/19 History 20mg Tablet] Donepezil HCl [Aricept 5mg 5 mg PO HS 04/14/18 08/15/19 History Tablet] Potassium Chloride 60 meq PO TID 04/14/18 08/15/19 History Spironolactone [Aldactone 25mg 25 mg PO DAILY 04/14/18 08/15/19 History Tab] Furosemide [Furosemide 40MG tAB] 40 mg PO DAILY 04/15/18 08/15/19 History warfarin 5 mg tablet 5 mg PO SUTUTHSA tab 08/17/18 08/15/19 History Metoprolol Tartrate [Lopressor 12.5 mg PO DAILY 05/09/19 08/15/19 History 25mg tablet] Loratadine [Claritin] 10 mg PO DAILY 05/10/19 08/15/19 History Cholecalciferol (Vitamin D3) 4,000 units PO DAILY 07/23/19 08/15/19 History [Vitamin D3] Insulin Lispro [HumaLOG 100 0 unit SQ DIRECTED 07/23/19 08/15/19 History units/mL 3mL vial (SSI)] Insulin Detemir [Levemir 40 unit SQ BID #0 08/02/19 08/15/19 Rx 100units/mL 3mL flexpen] Vancomycin/0.9 % Sod Chloride 1.5 gm IV DAILY 08/14/19 08/15/19 History [Vanco 1.5 gm/500 ml-0.9% NaCl] Acetaminophen 1,000 mg PO Q6HP PRN 08/15/19 08/15/19 History Atorvastatin 40mg Tab 40 mg PO HS 08/15/19 08/15/19 History Baclofen 20 mg PO HS 08/15/19 08/15/19 History Florastor 250 mg PO BID 08/15/19 08/15/19 History Linagliptin/Metformin HCl 1 tab PO BID 08/15/19 08/15/19 History [Jentadueto 2.5 mg-1000 mg Tab] Warfarin Sodium 2.5 mg PO MOWEFR 08/15/19 08/15/19 History Cefepime HCl [Maxipime 2gm Vial] 2 gm IV Q12H 7 Days #14 vial 08/20/19 Rx Warfarin Sodium 5 mg PO DAILY #30 tab 08/20/19 Rx Prescriptions/Medication Reconciliation: No Action baclofen 10 mg tablet 10 mg PO DAILY amiloride 5 mg tablet 5 mg PO DAILY aspirin 25 mg-dipyridamole 200 mg capsule,ext.release 12 hr multiphase 1 cap PO BID clopidogrel 75 mg tablet 75 mg PO DAILY warfarin 5 mg tablet 5 mg PO SUTUTHSA tab metolazone 5 mg tablet 5 mg PO DAILY glimepiride 2 mg tablet 2 mg PO DAILY Citalopram Hydrobromide [Celexa 20mg Tablet] 20 mg PO DAILY Spironolactone [Aldactone 25mg Tab] 25 mg PO DAILY Potassium Chloride 60 meq PO TID Donepezil HCl [Aricept 5mg Tablet] 5 mg PO HS Metoprolol Tartrate [Lopressor 25mg tablet] 12.5 mg PO DAILY Loratadine [Claritin] 10 mg PO DAILY Insulin Lispro [HumaLOG 100 units/mL 3mL vial (SSI)] 0 unit SQ DIRECTED Vancomycin/0.9 % Sod Chloride [Vanco 1.5 gm/500 ml-0.9% NaCl] 1.5 gm IV DAILY Baclofen 20 mg PO HS Acetaminophen 1,000 mg PO Q6HP PRN PRN Reason: PAIN Linagliptin/Metformin HCl [Jentadueto 2.5 mg-1000 mg Tab] 1 tab PO BID Furosemide [Furosemide 40MG tAB] 40 mg PO DAILY Cholecalciferol (Vitamin D3) [Vitamin D3] 4,000 units PO DAILY Insulin Detemir [Levemir 100units/mL 3mL flexpen] 40 unit SQ BID #0 Warfarin Sodium 2.5 mg PO MOWEFR Atorvastatin 40mg Tab 40 mg PO HS Florastor 250 mg PO BID - Problem Reconciliation Problems Reviewed?: Yes
== END 2019-08-20 14:09 | DRG 73 ==
LOC: 2ND 16:06
PROVIDERS: ADMIT Family Medicine; ATTEND Family Medicine
CPT/HCPCS: 36415; 70450; 71010; 71045; 73630; 80048; 80053; 80170; 80202; 81001; 82272; 82803; 82962; 83605; 83735; 84100; 84484; 85014; 85018; 85025; 85610; 85651; 86140; 86850; 87040; 87070; 87077; 87186; 87205; 93005; 96365; 97162; 97530; 99284; G0328; J3370; P9016

== ENCOUNTER → 2019-08-22 22:19 | Outpatient (CLI) | payer MEDICARE, MEDICAID, SELFPAY ==
[2019-08-22 22:54] LABS: Chloride 91 mmol/L (98-107); Sodium 134 mmol/L (136-145)
[2019-08-22 22:55] LABS: Potassium 5.1 mmoL/L (3.5-5.1)
[2019-08-22 22:57] LABS: Blood Urea Nitrogen 26 mg/dl (7-17); Estimated Glomerular Filt Rate 43 ml/min (>60); GFR (African American) 52 ML/MIN (>60)
[2019-08-22 22:58] LABS: Anion Gap 19.1 mEq/L (5-15); Calcium 9.3 mg/dl (8.4-10.2); Carbon Dioxide 29 mmol/L (22.0-30.0)
[2019-08-22 23:17] LABS: Glucose 413 mg/dl (74-100)
[2019-08-22 23:20] LABS: Vancomycin,Trough 18.3 ug/mL (5.0-10.0)
== END ==
PROVIDERS: Visit Provider Family Medicine
DX: Z51.81 Encounter for therapeutic drug level monitoring (principal)
CPT/HCPCS: 80048; 80202

== ENCOUNTER → 2019-08-26 10:10 | Outpatient (CLI) | payer MEDICARE, MEDICAID, SELFPAY ==
[2019-08-26 10:44] LABS: Vancomycin,Trough 20.7 ug/mL (5.0-10.0)
== END ==
PROVIDERS: Visit Provider Family Medicine
DX: Z51.81 Encounter for therapeutic drug level monitoring (principal)
CPT/HCPCS: 80202

== ENCOUNTER → 2019-08-28 10:30 | Outpatient (CLI) | payer MEDICARE, MEDICAID, SELFPAY ==
[2019-08-28 11:13] LABS: Vancomycin,Trough 24.3 ug/mL (5.0-10.0)
== END ==
PROVIDERS: Visit Provider Family Medicine
DX: Z51.81 Encounter for therapeutic drug level monitoring (principal)
CPT/HCPCS: 80202

== ENCOUNTER → 2019-08-31 19:26 | Outpatient (CLI) | payer MEDICARE, MEDICAID, SELFPAY ==
[2019-08-31 20:28] LABS: Vancomycin,Trough 16.9 ug/mL (5.0-10.0)
== END ==
PROVIDERS: Visit Provider Family Medicine
DX: Z51.81 Encounter for therapeutic drug level monitoring (principal)
CPT/HCPCS: 80202

== ENCOUNTER → 2019-09-03 18:12 | Outpatient (CLI) | payer MEDICARE, MEDICAID, SELFPAY | PROVIDERS: Visit Provider Podiatrist | DX: Z98.890 Other specified postprocedural states (principal); L03.115 Cellulitis of right lower limb | CPT/HCPCS: 87070; 87077; 87081; 87186; 87205 ==

== ENCOUNTER → 2019-09-08 11:34 | Outpatient (CLI) | payer MEDICARE, MEDICAID, SELFPAY ==
[2019-09-08 12:27] LABS: Vancomycin,Trough 8.3 ug/mL (5.0-10.0)
== END ==
PROVIDERS: Visit Provider Family Medicine
DX: Z51.81 Encounter for therapeutic drug level monitoring (principal)
CPT/HCPCS: 80202

== ENCOUNTER 2019-09-11 08:57 | Day surgery (SDC) | payer MEDICARE, MEDICAID, SELFPAY ==
[2019-09-11] VITALS (15 sets, daily range): BP systolic 76–150; BP diastolic 42–92; PULSE 74–98; RESP 16–20; TEMP 36.4–36.6; O2SAT 96–100; BMI 31.0
--- NOTE | 2019-09-11 09:43 | P.PN_ITS ---
[facility] Anesthesia Checklist - Patient Identification Patient Identification: Arm Band, Verbal (Name & ) - Structural Data Admitted From: Home Planned Operative Procedure/s: i and d foot Consent for Planned Operative Procedure(s) Verified: Yes Verified Documents: History and Physical - NPO Status Verified Time NPO: 00:00 - Additional verifications Patient : No Anesthesia Reactions: No Hx Blood Transfusions: No Blood Transfusion Reaction: No Cephalosporin Allergy: No Previous Colonoscopy: No - Cardiovascular Assessment Heart Sounds: S1 & S2 Pulse Strength: Baseline Pulse Rhythm: Regular Peripheral Edema: No - Airway Assessment C-Spine Mobility Assessed: Yes TMJ Mobility Assessed: Yes Dentition: Poor Dentition - Neurological Assessment Level of Consciousness: Awake, Alert, Appropriate Hx Seizures: No Numbness or tingling in extremities: No - Anesthesia Plan Anesthesia Risk discussed: Yes Anesthesia Plan: Verified ASA Class: III Anesthesia Type: General [facility] History I have reviewed the patient's past medical history: Yes Medical History: Reports:: Atherosclerotic Heart Disease, Cancer, Carotid Stenosis, Congestive Heart Failure, Coronary Artery Disease, Cerebrovascular Accident, Deep Vein Thrombosis, Depression, Diabetes Mellitus Type 2, Gall Bladder Disease, Heart Murmur, Hyperlipidemia, Hypertension, MRSA, Myocardial Infarction, Peripheral Artery Disease, Peripheral Vascular Disease, Renal Disease, Renal Insufficiency, Transient Ischemic Attacks (TIA), Urinary Tract Infection Denies:: Asthma, Chronic Obstructive Pulmonary Disease (COPD), Diabetes Mellitus Type 1, Internal Pacemaker, Lung Disease, Seizures *Have you ever received a pneumonia vaccine?: No *Have you received a flu vaccine this season?: No Other Medical History: Reports: Arthritis, Chemotherapy, Sinus Problems, Other. Denies: Blood Transfusion Reaction Anesthesia experience/problems:: none Laterality Cases: Left: Lumpectomy, Right: Carpal Tunnel Release, Mastectomy, Other Other Surgeries: Yes: Appendectomy, CABG (with 4 vessels repaired ), Cancer Surgery, Cardiac Catheterization, Cardiac Surgery, Cholecystectomy, Colonoscopy, Coronary Stent (legs ), , Hernia Repair, Open Heart Surgery, Tubal Ligation, Other (amputee left leg and right toes, stent to right leg). No: Pacemaker Amputation: Yes (Left BKA 06/23/14; 4th toe right foot 2016) Fractures: No - *Social History Smoking Status: Never smoker # Packs/Day (cigarettes): 0 #Yrs smoked (if former smoker): 0 Alcohol Intake: never Alcohol Intake Frequency:: other Substance Use Type: denies use *Occupational Status:: disabled Housing: fpc Household Members: none *Travel in the last 8 weeks: Outside the [facility] - Psychiatric History Pschychiatric History:: Reports:: Depression Family Hx:: Cancer, Diabetes, Heart Attack, Hyperlipidemia, Hypertension
[2019-09-11 09:45] LABS: POC Glucose,Bedside 152 (70-110)
[2019-09-11 10:01] LABS: Basophils % 0.3 % (0.1-2.0); Eosinophils # 0.1 K/mm3 (0.0-0.4); Eosinophils % 0.7 % (0.1-12.0); Hematocrit 36.6 % (37.0-47.0); Hemoglobin 11.4 g/dL (12.2-16.2); Lymphocytes % 15.5 % (10-50); Mean Corpuscular HGB Conc 31.3 g/dL (31.8-35.4); Mean Corpuscular Hemoglobin 25.4 pg (27.0-31.2); Mean Corpuscular Volume 81.4 fl (81-99); Mean Platelet Volume 8.5 fl (7.4-10.4); Monocytes # 0.4 K/mm3 (0.1-1.0); Monocytes % 3.2 % (1.7-9.3); Neutrophils # 10.6 K/mm3 (1.8-7.8); Neutrophils % 80.3 % (37.0-80.0); Platelet Count 283 K/mm3 (142-424); Red Blood Count 4.49 M/mm3 (4.20-5.40); Red Cell Distribution Width 18.1 % (11.5-17.5); White Blood Count 13.2 K/mm3 (4.8-10.8)
[2019-09-11 10:12] LABS: Alanine Aminotransferase 44 U/L (12-78); Albumin Level 4.2 g/dl (3.5-5.0); Albumin/Globulin Ratio 1.1 (1.1-1.8); Alkaline Phosphatase 113 U/L (38-126); Anion Gap 17.1 mEq/L (5-15); Aspartate Amino Transferase 42 U/L (14-36); Bilirubin,Total 0.4 mg/dl (0.2-1.3); Blood Urea Nitrogen 22 mg/dl (7-17); Calcium 9.5 mg/dl (8.4-10.2); Carbon Dioxide 28 mmol/L (22.0-30.0); Chloride 99 mmol/L (98-107); Creatinine Clearance Estimated 76 mL/min (50-200); Estimated Glomerular Filt Rate 58 ml/min (>60); GFR (African American) 71 ML/MIN (>60); Globulin 3.9 g/dL (1.3-3.2); Glucose 166 mg/dl (74-100); Potassium 5.1 mmoL/L (3.5-5.1); Sodium 139 mmol/L (136-145); Total Protein,Serum 8.1 g/dl (6.3-8.2)
[2019-09-11 10:17] LABS: C-Reactive Protein 20.9 mg/L (0-4)
[2019-09-11 10:22] LABS: Erythrocyte Sedimentation Rate 92 mm/hr (0-30)
--- NOTE | 2019-09-11 11:29 | XR_ITS ---
PROCEDURE: XR FOOT RT 2V CLINICAL INDICATION: DEBRIDEMENT SURGICAL WOUND COMPARISON: No exams were available for comparison FINDINGS: Fluoroscopy time: 6.7 seconds C-arm was utilized for debridement. The transmetatarsal amputation has been extended to the base of the metatarsals. There is good alignment. IMPRESSION: Extension of transmetatarsal amputation to the base of the metatarsals Dictated by: Almas Flynn MD 09/11/2019 15:33 Electronically signed by Almas Flynn MD in [place] 09/11/2019 15:33
--- NOTE | 2019-09-11 12:16 | P.PN_ITS ---
[facility] Anesthesia Record Part I Intake, IV Amount: 550 Estimated blood loss (mL): 10 Urine output (mL): 0 Blood Products used (#): none Blood Pressure: 103/70 SaO2: 99 Pulse Rate: 87 Respiratory Rate: 20 Temperature: 97.5 F Patient is:: Drowsy, Stable Stable to PACU at:: 12:12
--- NOTE | 2019-09-11 12:29 | XR_ITS ---
PROCEDURE: XR FOOT RT MIN 3V CLINICAL INDICATION: Post op amp Follow-up amputation COMPARISON: No exams were available for comparison FINDINGS: Status post amputation at the proximal aspect of the metatarsals with good alignment. Postsurgical drain and clips are present. IMPRESSION: Interval transmetatarsal amputation at the base of the metatarsals. Dictated by: Almas Flynn MD 09/11/2019 15:09 Electronically signed by Almas Flynn MD in [place] 09/11/2019 15:09
--- NOTE | 2019-09-11 12:36 | HMH.OPNOTE ---
Date of procedure: 09/11/19 Pre-op Diagnosis:: 1. S/p right TMA on 07/30/19, gangrene 2. Right heel pressure ulcer 3. Right diabetic foot ulcer 4. Right foot infection, cellulitis 5. Right foot osteomyelitis Post-op Diagnosis:: Same Procedure performed:: 1. Right revisional transmetatarsal amputation 2. 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 Right ulcer wound debirdement x 3 4. Right foot application of antibiotic beads Surgeon:: Tabatha Calloway DPM METAL FURNITURE POLISHER:: Sabino Humphreys Anesthesia: GETA, local (20cc 0.5% marcaine plain) Estimated blood loss (mL): 20 Clinical Note:: 07/30/19: s/p right transmetatarsal amputation (TMA), tendo Achilles lengthening (CASSANDRA), POV # 4, POD # 6w, 1d 07/30/19, intra-op right toe bone: Skin and subcutaneous tissue with gangrenous necrosis, extending to the surgical margin. Underlying bone with osteonecrosis, negative for acute osteomyelitis. Intra-op bone, right foot metatarsal margin: Fragments of bone, negative for acute osteomyelitis 07/30/19, wound culture right 4th toe: Streptococcus sanguinus, GPC 07/30/19, bone culture right 2nd toe: Staphylococcus epidermidis, Kingella denitrificans S. epidermidis: MRSA and resistant to erythromycin, oxacillin, penicillin. Susceptible to clindamycin, daptomycin, gentamicin, rifampin, tetracycline and vancomycin 09/03/19, right foot wound culture: VRE, Morganella morganii Continue IV antibiotics via PICC. New labs, 09/02-: wbc 9.9-10.4, ESR 52, CRP 27.8, gfr 80, bun 25, glucose 71 Discusses plan of care with Dr. Alva 09/10/2019. Vancomycin was discontinued. Started Invanz 1 g IV daily and linezolid 600 mg p.o. twice daily x4 weeks until 10/08/2019. Overall the incision site looked boggy with new eschar and signs of wound dehiscence, not improving. There is localized edema and erythema noted to the incision site with skin sloughing and maceration. Betadine soaked packing inserted then Betadine soaked 4x4's applied then dry 4x4's, rhiannon and Frank were placed to the foot. I discussed the plan of care with the patient and her mother. Unfortunately it appears that the wound has continue to dehisce and there are progressive gangrenous changes to the TMA incision flap. I explained that she will need to continue the IV antibiotics. I recommend further debridement with revisional more proximal amputation with revision of the flap. Patient understands that the foot may change shape after surgery. Patient also understands that they could have wound healing complications including delayed healing and infection. We discussed that if the wound does not heal, it is possible that they may need a more proximal amputation and could result in further loss of partial foot or loss of leg. We discussed the risks and benefits in great detail. Other surgical risks include: prolonged pain and swelling, further infection requiring oral or IV antibiotics, delay in healing of soft tissue or bone, nerve or blood vessel damage, CRPS/RSD, DVT, anesthesia complications, and even . Plan for surgery today, 09/11/19 to include: revision of right transmetatarsal amputation, debridement of non-viable soft tissue and bone, possible Lisfranc amputation. Operative findings:: There was a posterior heel pressure ulcer noted. Ulcer x2 also noted to the anterior aspect of the hindfoot overlying the talus. All 3 wounds were sharply debrided with a 15 blade and pickup through skin into subcutaneous tissue. Post debridement: The dorsal medial anterior foot ulcer was 100% granular and measured 0.3 x 0.4 x 0.1 cm. The dorsal lateral ulcer was 100% granular and measures 0.3 x 0.6 x 0.1 cm. Both ulcers extended through skin into subcutaneous tissue. The posterior heel ulcer post debridement was 90% granular, 10% fibrotic intact with no slough and measured 1.7 x 1.8 x 0.1 cm and extended through skin and subcutaneous tissue. The transmetatarsal amputation site had gangrenous necrotic changes. Full-thickness flap was debrid
[2019-09-11 12:39] LABS: POC Glucose,Bedside 218 (70-110)
--- NOTE | 2019-09-11 13:19 | SUR.PHASEI ---
finger stick performed on pt. glucose was 218. s. mike dough scaler and mixer notified of reading and decision was made not to treat.
--- NOTE | 2019-09-11 13:48 | P.PN_ITS ---
[facility] Anesthesia Record Part II Discharge Time: 12:42 Destination: Surgical Day Care (OP Surgery) PACU nurse assessment reviewed?: Yes Patient Condition:: Good Anesthesia Complications:: None Swallowing reflex intact?: Yes Cyanosis?: No Blood Pressure: 112/78 Pulse Rate: 86 Temperature: 97.7 F Mental Status: Alert & Oriented Pain level:: 0 Nausea and/or vomitting:: None Intake, IV Amount: 25
--- NOTE | 2019-09-11 14:39 | SUR.PHASEII ---
Linezolid 600mg given po as ordered at 1252
== END 2019-09-11 14:25 | disposition home or self-care (01) ==
PROVIDERS: PCP Family Medicine; Visit Provider Podiatrist
PROC: (CPT 11042; principal; 2019-09-11 09:30)
DX: E11.52 Type 2 diabetes mellitus with diabetic peripheral angiopathy with gangrene (principal); I96 Gangrene, not elsewhere classified; Z79.4 Long term (current) use of insulin; T87.81 Dehiscence of amputation stump; L03.115 Cellulitis of right lower limb; B95.2 Enterococcus as the cause of diseases classified elsewhere; B96.89 Other specified bacterial agents as the cause of diseases classified elsewhere; Z89.512 Acquired absence of left leg below knee; E11.69 Type 2 diabetes mellitus with other specified complication; M86.8X7 Other osteomyelitis, ankle and foot; E11.621 Type 2 diabetes mellitus with foot ulcer; L97.411 Non-pressure chronic ulcer of right heel and midfoot limited to breakdown of skin; Z79.899 Other long term (current) drug therapy; Z88.8 Allergy status to other drugs, medicaments and biological substances; Z88.1 Allergy status to other antibiotic agents; Z79.01 Long term (current) use of 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
CPT/HCPCS: 11042; 28805; 36415; 73620; 73630; 76000; 80053; 82962; 85025; 85651; 86140; 87070; 87077; 87186; 87205; 88304; 88311; 96374; C1713; J1335; J2020; J2405

== ENCOUNTER → 2019-09-13 10:33 | Outpatient (CLI) | payer MEDICARE, MEDICAID, SELFPAY ==
--- NOTE | 2019-09-13 10:34 | CA_ITS ---
APPROVED REPORT Right Lower Extremity Venous Study for DVT. Manager Wind: Maryse Rodarte RVT Indications Lower Extremity Pain: Right Lower Extremity Edema: Right History of Smoking Right Calf Pain,PT HAD ULCER DEBRIDMENT 3 DAYS AGO, SWELLING IN AREA OF INCISION Risk Factors Post OP History of Smoking Past History DVT : Bilateral Medications Coumadin Plavix Vein Imaging CFV (R): compressive, spontaneous, phasic, augmentation FEM (R): compressive, spontaneous, phasic, augmentation POP (R): compressive, spontaneous, phasic, augmentation PTV (R): Compressible GSV (R): Compressible Peroneals (R):Compressible GAS (R): Compressible Findings Study suggests no evidence of DVT of the right lower extremity. Study suggests no evidence of SVT of the right lower extremity. Conclusion No evidence of DVT or superficial thrombophlebitis in the veins scanned of the right lower extremity. Critical Notification Physician Notified Date: 09/13/2019 Time: 11:14 Physician Name: Kieran Calloway's office Electronically signed by : Almas Flynn MD 09/13/2019 16:15:32
== END ==
PROVIDERS: PCP Family Medicine; Visit Provider Podiatrist
DX: L03.115 Cellulitis of right lower limb (principal); Z98.890 Other specified postprocedural states
CPT/HCPCS: 93971

== ENCOUNTER → 2019-10-02 17:51 | Outpatient (CLI) | payer MEDICARE, MEDICAID, SELFPAY | PROVIDERS: Visit Provider Podiatrist | DX: Z98.890 Other specified postprocedural states (principal); L03.115 Cellulitis of right lower limb | CPT/HCPCS: 87070; 87205 ==

== ENCOUNTER 2019-10-10 08:30 | Outpatient (CLI) | payer MEDICARE, MEDICAID, SELFPAY ==
[2019-10-10] VITALS (18 sets, daily range): BP systolic 108–129; BP diastolic 57–90; PULSE 84–99; RESP 16–18; TEMP 36–36.3; O2SAT 98; BMI 33.0
[2019-10-10 09:12] LABS: Hematocrit 22.3 % (37.0-47.0)
--- NOTE | 2019-10-10 10:28 | PC.NURSE ---
1025 - TRANSFUSION RATE STARTED AT 100 ML/HR AT THIS TIME.
--- NOTE | 2019-10-10 11:12 | PC.NURSE ---
1055 - INCREASED RATE TO 150 ML/HR AT THIS TIME.
--- NOTE | 2019-10-10 11:47 | PC.NURSE ---
1125 - INCREASED RATE TO 200 ML/HR AT THIS TIME.
--- NOTE | 2019-10-10 12:54 | PC.NURSE ---
1250 - TRANSFUSION RATE STARTED AT 100 ML/HR AT THIS TIME.
--- NOTE | 2019-10-10 14:08 | PC.NURSE ---
1320 - INCREASED RATE TO 150 ML/HR AT THIS TIME.
--- NOTE | 2019-10-10 14:12 | PC.NURSE ---
1350 - INCREASED RATE TO 200 ML/HR AT THIS TIME.
[2019-10-10 15:48] LABS: Hematocrit 31.6 % (37.0-47.0)
[2019-10-10 16:09] LABS: Hemoglobin 10.5 g/dL (12.2-16.2)
== END 2019-10-10 15:55 | disposition home or self-care (01) ==
LOC: INF 08:49
PROVIDERS: PCP Family Medicine; Visit Provider Family Medicine
DX: D64.9 Anemia, unspecified (principal)
CPT/HCPCS: 36430; 85014; 85018; 86850; P9016

== ENCOUNTER 2019-10-16 12:56 | Outpatient (CLI) | payer MEDICARE, MEDICAID, SELFPAY ==
--- NOTE | 2019-10-16 13:10 | PC.NURSE ---
1310-flushed right upper arm picc with ns;obtained blood return;collected labs for md appointment;flushed with ns;pt left per wheelchair with mother to dr appointment;
--- NOTE | 2019-10-16 13:17 | XR_ITS ---
PROCEDURE: XR FOOT WT BEARING RT 3V CLINICAL INDICATION: post-op Follow-up amputation COMPARISON: XR FOOT RT 2V from 07/30/2019 XR FOOT RT MIN 3V from 07/30/2019 XR FOOT RT MIN 3V from 08/15/2019 XR FOOT RT MIN 3V from 09/11/2019 FINDINGS: There has been prior amputation at the greater cuneiform metatarsal junction and at the base of the 2nd 3rd 4th and 5th metatarsals. On the oblique view there is ill definition of the distal bony cortex of the 5th metatarsal at the amputation site. This could be due to underlying osteomyelitis. This area was somewhat obscured on the previous exam. There remains good alignment. Skin clips are present. IMPRESSION: Status post midfoot amputation as described above. There is some cortical ill definition of the distal aspect of the stump of the 5th metatarsal. Underlying osteomyelitis is not excluded. Please correlate as to patient's clinical findings. MRI may provide further evaluation if clinically desired Dictated by: Almas Flynn MD 10/16/2019 13:57 Electronically signed by Almas Flynn MD in [place] 10/16/2019 13:57
[2019-10-16 13:42] LABS: Basophils # 0.1 K/mm3 (0-0.2); Basophils % 0.8 % (0.1-2.0); Eosinophils # 0.2 K/mm3 (0.0-0.4); Eosinophils % 1.8 % (0.1-12.0); Hematocrit 33.7 % (37.0-47.0); Hemoglobin 10.8 g/dL (12.2-16.2); Lymphocytes # 1.5 K/mm3 (0.7-4.5); Mean Corpuscular HGB Conc 32.2 g/dL (31.8-35.4); Mean Corpuscular Hemoglobin 27.6 pg (27.0-31.2); Mean Corpuscular Volume 85.7 fl (81-99); Mean Platelet Volume 7.9 fl (7.4-10.4); Monocytes # 0.7 K/mm3 (0.1-1.0); Monocytes % 5.7 % (1.7-9.3); Neutrophils % 79.8 % (37.0-80.0); Platelet Count 350 K/mm3 (142-424); Red Blood Count 3.93 M/mm3 (4.20-5.40); Red Cell Distribution Width 21.4 % (11.5-17.5); White Blood Count 12.6 K/mm3 (4.8-10.8)
[2019-10-16 14:11] LABS: Erythrocyte Sedimentation Rate 91 mm/hr (0-30)
[2019-10-16 16:21] LABS: Chloride 100 mmol/L (98-107); Sodium 139 mmol/L (136-145)
[2019-10-16 16:22] LABS: Potassium 5.3 mmoL/L (3.5-5.1)
[2019-10-16 16:24] LABS: Alanine Aminotransferase 24 U/L (12-78); Albumin Level 4.2 g/dl (3.5-5.0); Albumin/Globulin Ratio 1.2 (1.1-1.8); Alkaline Phosphatase 103 U/L (38-126); Anion Gap 19.3 mEq/L (5-15); Aspartate Amino Transferase 24 U/L (14-36); Bilirubin,Total 0.5 mg/dl (0.2-1.3); Blood Urea Nitrogen 24 mg/dl (7-17); Calcium 9.7 mg/dl (8.4-10.2); Carbon Dioxide 25 mmol/L (22.0-30.0); Estimated Glomerular Filt Rate 47 ml/min (>60); GFR (African American) 57 ML/MIN (>60); Globulin 3.4 g/dL (1.3-3.2); Glucose 73 mg/dl (74-100); Total Protein,Serum 7.6 g/dl (6.3-8.2)
[2019-10-16 16:30] LABS: C-Reactive Protein 44.4 mg/L (0-4)
== END 2019-10-16 13:10 | disposition home or self-care (01) ==
PROVIDERS: Visit Provider Podiatrist
DX: Z98.890 Other specified postprocedural states (principal); L03.031 Cellulitis of right toe
CPT/HCPCS: 36415; 73630; 80053; 85025; 85651; 86140

== ENCOUNTER 2019-10-26 15:17 | Inpatient (IN) | payer MEDICARE, MEDICAID, SELFPAY ==
[2019-10-26 14:37] LABS: Basophils # 0.1 K/mm3 (0-0.2); Basophils % 0.6 % (0.1-2.0); Eosinophils # 0.2 K/mm3 (0.0-0.4); Eosinophils % 1.3 % (0.1-12.0); Hematocrit 29.6 % (37.0-47.0); Hemoglobin 9.8 g/dL (12.2-16.2); Lymphocytes # 2.3 K/mm3 (0.7-4.5); Lymphocytes % 18.9 % (10-50); Mean Corpuscular HGB Conc 33.2 g/dL (31.8-35.4); Mean Corpuscular Hemoglobin 27.7 pg (27.0-31.2); Mean Corpuscular Volume 83.2 fl (81-99); Mean Platelet Volume 7.6 fl (7.4-10.4); Monocytes # 0.9 K/mm3 (0.1-1.0); Monocytes % 7.5 % (1.7-9.3); Neutrophils # 8.5 K/mm3 (1.8-7.8); Neutrophils % 71.6 % (37.0-80.0); Platelet Count 409 K/mm3 (142-424); Red Blood Count 3.55 M/mm3 (4.20-5.40); Red Cell Distribution Width 21.2 % (11.5-17.5); White Blood Count 11.9 K/mm3 (4.8-10.8)
[2019-10-26 15:04] LABS: INR 1.42 (0.9-1.1); Prothrombin Time 14.5 seconds (9.4-11.8)
[2019-10-26 15:07] LABS: Activated Partial Thrombo Time 40.1 seconds (23.6-34.0)
[2019-10-26 15:18] LABS: Erythrocyte Sedimentation Rate > 140 mm/hr (0-30)
--- NOTE | 2019-10-26 15:27 | XR_ITS ---
PROCEDURE: XR CHEST PORTABLE CLINICAL HISTORY: AMS COMPARISON: XR CHEST PORTABLE from 08/13/2019 XR CHEST PORTABLE from 08/14/2019 XR CHEST PORTABLE from 08/15/2019 FINDINGS: Prior CABG . right upper extremity PICC line is present with Tip in the region of the SVC. Lungs are clear. Surgical clips are present in the right axilla. There is sclerosis of the right proximal humerus consistent with a bone infarction. IMPRESSION: No change with no acute finding Dictated by: Almas Flynn MD 10/26/2019 16:33 Electronically signed by Almas Flynn MD in [place] 10/26/2019 16:33
[2019-10-26 15:35] VITALS: BMI 31.4
[2019-10-26 15:51] LABS: Alanine Aminotransferase 21 U/L (12-78); Albumin Level 4.6 g/dl (3.5-5.0); Albumin/Globulin Ratio 1.4 (1.1-1.8); Alkaline Phosphatase 116 U/L (38-126); Aspartate Amino Transferase 21 U/L (14-36); Bilirubin,Total 0.6 mg/dl (0.2-1.3); Blood Urea Nitrogen 22 mg/dl (7-17); Calcium 9.9 mg/dl (8.4-10.2); Carbon Dioxide 25 mmol/L (22.0-30.0); Chloride 99 mmol/L (98-107); Estimated Glomerular Filt Rate 52 ml/min (>60); GFR (African American) 63 ML/MIN (>60); Globulin 3.4 g/dL (1.3-3.2); Glucose 217 mg/dl (74-100); Sodium 138 mmol/L (136-145)
[2019-10-26 15:56] LABS: C-Reactive Protein 122.2 mg/L (0-4)
[2019-10-26 16:00] VITALS: BP 141/63; PULSE 93; RESP 17; TEMP 37.4; O2SAT 95; BMI 31.4
[2019-10-26 16:15] LABS: Lactic Acid 3.5 mmol/L (0.7-2.1)
--- NOTE | 2019-10-26 16:32 | HMH.PHACONS ---
- Pharmacy Consult Date: 10/26/19 Time: 16:32 Referring provider: DR. CAVAZOS Reason for Consult:: TOBRAMYCIN AND VANCOMYCIN DOSING Allergies and ADEs:: Allergies Allergy/AdvReac Type Severity Reaction Status Date / Time azithromycin Allergy Intermediate S-DIFF. Verified 10/26/19 13:19 BREATHING daptomycin [DAPTOMYCIN] Allergy Intermediate I-RASH/ITCH Verified 10/26/19 13:19 ING levofloxacin Allergy Intermediate I-RASH Verified 10/26/19 13:19 Penicillins Allergy Intermediate I-HIVES Verified 10/26/19 13:19 Home Medications:: Home Medications Medication Instructions Recorded Confirmed Type amiloride 5 mg tablet 5 mg PO DAILY 09/22/17 10/26/19 History baclofen 10 mg tablet 10 mg PO DAILY 09/22/17 10/26/19 History clopidogrel 75 mg tablet 75 mg PO DAILY 09/22/17 10/26/19 History glimepiride 2 mg tablet 2 mg PO DAILY 09/22/17 10/26/19 History metolazone 5 mg tablet 5 mg PO DAILY 09/22/17 10/26/19 History Citalopram Hydrobromide [Celexa 20 mg PO DAILY 11/20/17 10/26/19 History 20mg Tablet] Donepezil HCl [Aricept 5mg 5 mg PO HS 04/14/18 10/26/19 History Tablet] Potassium Chloride 60 meq PO TID 04/14/18 10/26/19 History Spironolactone [Aldactone 25mg 25 mg PO DAILY 04/14/18 10/26/19 History Tab] Metoprolol Tartrate [Lopressor 12.5 mg PO DAILY 05/09/19 10/26/19 History 25mg tablet] Loratadine [Claritin] 10 mg PO DAILY 05/10/19 10/26/19 History Cholecalciferol (Vitamin D3) 4,000 units PO DAILY 07/23/19 10/26/19 History [Vitamin D3] Insulin Lispro [HumaLOG 100 0 unit SQ DIRECTED 07/23/19 10/26/19 History units/mL 3mL vial (SSI)] Acetaminophen 1,000 mg PO Q6HP PRN 08/15/19 10/26/19 History Atorvastatin 40mg Tab 40 mg PO HS 08/15/19 10/26/19 History Baclofen 20 mg PO HS 08/15/19 10/26/19 History Florastor 250 mg PO BID 08/15/19 10/26/19 History Linagliptin/Metformin HCl 1 tab PO BID 08/15/19 10/26/19 History [Jentadueto 2.5 mg-1000 mg Tab] Warfarin Sodium 5 mg PO DAILY 09/11/19 10/26/19 History ertapenem 1 gram solution for 1 g IM DAILY 09/11/19 10/26/19 History injection linezolid 600 mg tablet 600 mg PO BID 09/11/19 10/26/19 History Cyanocobalamin (Vitamin B-12) 500 mcg PO DAILY 10/10/19 10/26/19 History [Vitamin B-12] Ferrous Sulfate [Ferrous Sulfate 325 mg PO TID 10/10/19 10/26/19 History 325mg Tablet] Furosemide [Furosemide 40MG tAB] 40 mg PO DAILY 10/10/19 10/26/19 History Insulin Detemir [Levemir 60 unit SQ BID 10/10/19 10/26/19 History 100units/mL 3mL flexpen] Multivitamin 1 each PO DAILY 10/10/19 10/26/19 History rosuvastatin 20 mg tablet 20 mg PO tab 10/16/19 10/26/19 History Height: 1.52 m Weight: 73.028 kg Laboratory Results:: Laboratory Results - last 24 hr 10/26/19 14:08: WBC 11.9 H, RBC 3.55 L, Hgb 9.8 L, Hct 29.6 L, MCV 83.2, MCH 27.7, MCHC 33.2, RDW 21.2 H, Plt Count 409, MPV 7.6, Neut % (Auto) 71.6, Lymph % (Auto) 18.9, [place] % (Auto) 7.5, Eos % (Auto) 1.3, Baso % (Auto) 0.6, Neut # (Auto) 8.5 H, Lymph # (Auto) 2.3, [place] # (Auto) 0.9, Eos # (Auto) 0.2, Baso # (Auto) 0.1, ESR > 140 H 10/26/19 14:08: PT 14.5 H, INR 1.42 H, APTT 40.1 H D 10/26/19 14:08: Sodium 138, Potassium 5.0, Chloride 99, Carbon Dioxide 25, Anion Gap 19.0 H, BUN 22 H, Creatinine 1.10 H, Estimated GFR 52 L, Est GFR ( Amer) 63, Glucose 217 H, Calcium 9.9, Total Bilirubin 0.6, AST 21, ALT 21, Alkaline Phosphatase 116, C-Reactive Protein 122.2 H, Total Protein 8.0, Albumin 4.6, Globulin 3.4 H, Albumin/Globulin Ratio 1.4 10/26/19 15:53: Lactate 3.5 H Medical History: Reports:: Arrhythmia, Atherosclerotic Heart Disease, Cancer, Carotid Stenosis, Congestive Heart Failure, Coronary Artery Disease, Cerebrovascular Accident, Deep Vein Thrombosis, Depression, Diabetes Mellitus Type 2, Gall Bladder Disease, Heart Murmur, Hyperlipidemia, Hypertension, MRSA, Myocardial Infarction, Peripheral Artery Disease, Peripheral Vascular Disease, Renal Disease, Renal Insufficiency, Transient Ischem
[2019-10-26 16:39] LABS: Troponin I < 0.01 ng/ml (0.00-0.034)
--- NOTE | 2019-10-26 17:03 | HMH.HP ---
*Admission Date: 10/26/19 *Chief complaint: Altered mental status *History of present illness: 53 year old female with numerous medical problems presented to the office of [facility] today after being seen in the [facility] orthopedic office today for preop evaluation for a right below the knee ambulation due to osteomyelitis. Patient was noted to be confused and listing to her left. He mother reported that she had acted the way previously when she was anemic and when she had an infection. She was noted to have a low grade fever in the office and her WBC count was elevated so arrangements were made to admit the patient and evaluate her for sepsis. She currently has a PICC line through which she has been receiving IVF antibiotics [facility] History Medical History: Reports:: Arrhythmia, Atherosclerotic Heart Disease, Cancer, Carotid Stenosis, Congestive Heart Failure, Coronary Artery Disease, Cerebrovascular Accident, Deep Vein Thrombosis, Depression, Diabetes Mellitus Type 2, Gall Bladder Disease, Heart Murmur, Hyperlipidemia, Hypertension, MRSA, Myocardial Infarction, Peripheral Artery Disease, Peripheral Vascular Disease, Renal Disease, Renal Insufficiency, Transient Ischemic Attacks (TIA), Urinary Tract Infection Denies:: Asthma, Chronic Obstructive Pulmonary Disease (COPD), Diabetes Mellitus Type 1, Internal Pacemaker, Lung Disease, Seizures *Have you ever received a pneumonia vaccine?: Yes *Have you received a flu vaccine this season?: Yes Other Medical History: Reports: Anemia, Arthritis, Chemotherapy, Sinus Problems, Other. Denies: Blood Transfusion Reaction Laterality Cases: Left: Lumpectomy, Right: Carpal Tunnel Release, Mastectomy, Other Other Surgeries: Yes: Appendectomy, CABG (with 4 vessels repaired ), Cancer Surgery, Cardiac Catheterization, Cardiac Surgery, Cholecystectomy, Colonoscopy, Coronary Stent (legs ), , Hernia Repair, Open Heart Surgery, Tubal Ligation, Other (amputee left leg and right toes, stent to right leg). No: Pacemaker Amputation: Yes (LEFT BKA, RIGHT TOES AND PARITAL RIGHT FOOT AMPUTATIONS) Fractures: No - *Social History Educational Level: Attended College Smoking Status: Never smoker # Packs/Day (cigarettes): 0 #Yrs smoked (if former smoker): 0 Alcohol Intake: never Alcohol Intake Frequency:: other Substance Use Type: denies use *Occupational Status:: disabled Housing: senior care Household Members: caregiver *Travel in the last 8 weeks: None - Psychiatric History Pschychiatric History:: Reports:: Depression Family Hx:: Asthma, Cancer, Coronary Artery Disease, Diabetes, Heart Attack, Hyperlipidemia, Hypertension, Stroke Review of Systems - Constitutional Reports fatigue, Reports lack of energy, Denies chills - Eyes Denies blurry vision - ENT Denies bleeding gums - *Cardiovascular Denies chest pain - *Respiratory Denies cough - *Gastrointestinal Denies abdominal pain - *Genitourinary Denies blood in urine - *Musculoskeletal Denies joint pain - Integumentary/Breasts Reports rash (in groin area, which has improved with treatment) - *Neurologic Reports confusion, Denies dizziness Meds Home Medications Medication Instructions Recorded Confirmed Type amiloride 5 mg tablet 5 mg PO DAILY 09/22/17 10/26/19 History baclofen 10 mg tablet 10 mg PO DAILY 09/22/17 10/26/19 History clopidogrel 75 mg tablet 75 mg PO DAILY 09/22/17 10/26/19 History glimepiride 2 mg tablet 2 mg PO DAILY 09/22/17 10/26/19 History metolazone 5 mg tablet 5 mg PO DAILY 09/22/17 10/26/19 History Citalopram Hydrobromide [Celexa 20 mg PO DAILY 11/20/17 10/26/19 History 20mg Tablet] Donepezil HCl [Aricept 5mg 5 mg PO HS 04/14/18 10/26/19 History Tablet] Potassium Chloride 60 meq PO TID 04/14/18 10/26/19 History Spironolactone [Aldactone 25mg 25 mg PO DAILY 04/14/18 10/26/19 History Tab] Metoprolol Tartrate [Lopressor 12.5 mg PO DAILY 05/09/19 10/26/19 History 25mg tablet] Loratadine
[2019-10-26 17:17] LABS: POC Glucose,Bedside 268 (70-110)
[2019-10-26 17:21] VITALS: O2SAT 95
--- NOTE | 2019-10-26 19:09 | PC.NURSE ---
report given to soren
[2019-10-26 19:57] LABS: Reflex Lactic Add Lactic Reflex
[2019-10-26 20:00] VITALS: BP 139/78; PULSE 90; RESP 17; TEMP 37; O2SAT 93
--- NOTE | 2019-10-26 20:10 | PC.NURSE ---
PT REFUSED TO BE TURNED Q2H PER STAFF THIS SHIFT. ENCOURAGED PT TO SELF TURN TO RELIEVE PRESSURE FROM BOTTOM. PT VERBALIZED UNDERSTANDING AT THIS TIME.
--- NOTE | 2019-10-26 20:56 | PC.NURSE ---
SPOKE WITH SANDHYA LUTHER, PHARM CHEMICAL PROCESSING TECHNICIAN, TO VERIFY CORRECT DOSING FOR TOBRAMYCIN. ADMINISTERED 280 MG TOBRAMYCIN TO PT AT THIS TIME. VERIFIED CORRECT DOSING WITH GLENDA MITCHELL.
--- NOTE | 2019-10-26 21:43 | HMH.ORTHOCON ---
*Admission Date: 10/26/19 *Reason for consult:: R foot osteomyelitis *History of present illness: 53-year-old female admitted with suspicion of sepsis emanating from right foot osteomyelitis. She was seen in my office earlier today for evaluation for below-knee amputation and during that visit reported feeling very ill. She says she has not felt like herself lately and has been fatigued. She was accompanied by her mother, who notes she seems listless and has had difficulty sitting up in her wheelchair. No fevers have been reported at the skilled nursing where she resides, nor any purulent drainage noted from her foot. The patient was sent for outpatient labs from my office, and after discovery of leukocytosis, was sent for evaluation by Dr. Alva; he has admitted the patient for further treatment. The patient is new to myself today, previously being treated by Dr. Calloway. The patient has long struggled with right lower extremity ischemia and infection, and she states she has had 7 surgeries on this leg. She has been evaluated by 's medical service and vascular surgery, who felt they could not revascularize the lower extremity with either stenting or bypass grafting. They recommended below-knee amputation last fall. She has been treated by both Dr. Calloway and Dr. Padilla here at [facility]. Dr. Padilla performed right lower extremity angiogram in July 2019 which showed little to no flow distal to the superficial femoral artery. He did not feel there was anything distally to this that could be revascularized and made the same recommendation at the vascular surgeon at . Dr. Calloway has performed several debridements of this foot, followed by transmetatarsal amputation in July 2019. The TMA required revision in August 2019, at which time Lisfranc disarticulation was additionally performed and antibiotics beads were placed. Intraoperative cultures at that time grew multiple organisms and she has been on IV Invanz via PICC line, as well as oral Zyvox. An in-office culture grew yeast, so fluconazole was started as well. Despite local wound care the R TMA has developed black eschar anteriorly at the incision line and posteriorly where an ulcer has formed. She is reporting increasing pain, which she describes as a sensation like a dog gnawing on her foot. 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 PSH = L breast lumpectomy, R CTR, mastectomy, appendectomy, CABG (4 vessel), cholecystectomy, cardiac catheterization, lower extremity angiography with arterial stenting, hernia repair, tubal ligation, L BKA, R TMA Allg = azithromycin, daptomycin, levofloxacin, PCN Meds = amiloride, atorvastatin, vitamin B12, baclofen, vitamin D, citalopram, plavix, donepezil, lasix, glimepiride, invanz, loratadine, metolazone, metoprolol, multivitamin, spironolactone, warfarin, insulin, linagliptin-metformin, linezolid, iron supplement, tylenol, potassium chloride SocHx = non-smoker, currently residing in skilled nursing, mother is typically primary medicare biller and POA 07/30/19: R TMA + CASSANDRA intra-op cultures: streptococcus sanguinus, staphylococcus epidermidis, Kingella dentifricans, MRSA 09/03/19: wound culture: VRE, morganella morganii WBC 9.9 ESR 52 CRP 27.8 09/11/19: R revision TMA w/Lisfranc disarticulation intra-op cultures: Arcanobacteriu haemolyticum, Kingella dentifricans, enterococcus faecium WBC 13.2 ESR 92 CRP 20.9 10/02/19: office culture = yeast 10/16/19 CRP 44.4 10/26/19 CRP 122.2 Review of Systems - Review of Systems Review of systems:: pertinent systems reviewed and negative unless documented below - *Neurologic Reports confusion, Denies dizziness [facility] History I have reviewed the patient's past medical history: Yes Medical History: Reports:: Arrhythmia, Atherosclerotic Heart Disease, Cancer, Carotid [place]
[2019-10-26 22:08] LABS: POC Glucose,Bedside 173 (70-110)
[2019-10-26 22:54] LABS: Reflex Lactic (2 hrs) Add Lactic Reflex
[2019-10-26 23:28] LABS: Lactic Acid Follow up (RFLX 2) 2.4 mmol/L (0.7-2.1)
[2019-10-27 02:14] LABS: Tobramycin,Random 8.8 ug/ml
--- NOTE | 2019-10-27 04:15 | PC.NURSE ---
A&O X4. PT HAS RESTED INTERMITTENTLY T/O SHIFT WITH NO COMPLAINTS. PT STATES MINIMAL PAIN T/O SHIFT, ADMINISTERED TYLENOL X1 THUS FAR THIS SHIFT. UPON REASSESSMENT PT DENIES ANY ONGOING PAIN IN RLE. TOLERATED RA WELL WITH NO C/O SOA OR COUGH. DSG/WRAP TO RLE NOTED C/D/I. THIS RN ATTEMPTED TO ELEVATE BLE ON A PILLOW T/O SHIFT, PT REMOVED PILLOW. PT REFUSED TO BE TURNED BY STAFF THIS SHIFT. ENCOURAGED Q2H TURN WITH PT. PT IS ABLE TO SELF TURN IN BED BUT NOT ADEQUATELY. PURWICK CATH IN PLACE. URINE NOTED CLEAR AND BRIGHT YELLOW. REMAINS INCONTINENT OF BOWEL. WHEN ASKED PT STATES SHE IS AWARE OF WHEN SHE NEEDS TO HAVE A BM. PICC LINE IN [place] IS DIFFICULT TO FLUSH AT TIMES. THIS RN UNABLE TO OBTAIN A BLOOD SPECIMEN THIS SHIFT THROUGH PICC, EVEN WITH MULTIPLE ATTEMPTS AT DIFFERENT ANGLES. IV ATB INFUSED W/O COMPLICATIONS. VSS. REMAINS SAFE. CALL LIGHT WITHIN REACH. WILL CONTINUE TO MONITOR.
[2019-10-27 04:41] VITALS: BP 156/84; PULSE 89; RESP 16; TEMP 37.2; O2SAT 98
[2019-10-27 04:44] VITALS: BMI 31.7
[2019-10-27 06:20] LABS: POC Glucose,Bedside 199 (70-110)
[2019-10-27 08:00] VITALS: BP 119/75; PULSE 82; RESP 18; TEMP 36.8; O2SAT 95
--- NOTE | 2019-10-27 08:37 | HMH.ACPN2 ---
Internal Medicine - PN: Subj *Date: 10/27/19 *Time: 08:38 Interval history: Patient feels better this morning after receiving IVF and antibiotics, no new complaints. Exam Vital signs and Labs for Last 24 Hours: Temp Pulse Resp BP Pulse Ox 98.2 F 82 18 119/75 95 10/27/19 08:00 10/27/19 08:00 10/27/19 08:00 10/27/19 08:00 10/27/19 08:00 Laboratory Results - last 24 hr 10/26/19 14:08: WBC 11.9 H, RBC 3.55 L, Hgb 9.8 L, Hct 29.6 L, MCV 83.2, MCH 27.7, MCHC 33.2, RDW 21.2 H, Plt Count 409, MPV 7.6, Neut % (Auto) 71.6, Lymph % (Auto) 18.9, [place] % (Auto) 7.5, Eos % (Auto) 1.3, Baso % (Auto) 0.6, Neut # (Auto) 8.5 H, Lymph # (Auto) 2.3, [place] # (Auto) 0.9, Eos # (Auto) 0.2, Baso # (Auto) 0.1, ESR > 140 H 10/26/19 14:08: PT 14.5 H, INR 1.42 H, APTT 40.1 H D 10/26/19 14:08: Sodium 138, Potassium 5.0, Chloride 99, Carbon Dioxide 25, Anion Gap 19.0 H, BUN 22 H, Creatinine 1.10 H, Estimated GFR 52 L, Est GFR ( Amer) 63, Glucose 217 H, Calcium 9.9, Total Bilirubin 0.6, AST 21, ALT 21, Alkaline Phosphatase 116, C-Reactive Protein 122.2 H, Total Protein 8.0, Albumin 4.6, Globulin 3.4 H, Albumin/Globulin Ratio 1.4 10/26/19 14:08: Blood Type B Negative, Antibody Screen Negative 10/26/19 15:53: Troponin I < 0.01 10/26/19 15:53: Lactate 3.5 H 10/26/19 16:34: POC Glucose 268 H 10/26/19 20:48: POC Glucose 173 H 10/26/19 20:52: Lactate 3.0 H 10/26/19 23:05: Lactate 2.4 H 10/27/19 01:55: Random Tobramycin 8.8 10/27/19 06:07: POC Glucose 199 H I & O for Last 24 hours: Intake & Output 10/24/19 10/25/19 10/26/19 10/27/19 23:59 23:59 23:59 23:59 Intake Total 750 / 750 Output Total 500 / 500 Balance 250 / 250 Weight 161 lb 161 lb 9 oz - Constitutional no acute distress - *Routine HEENT Exam Head: Present: normocephalic Eye: Present: EOMI ENT: Present: mucous membranes moist - *Routine Neck Exam Present: supple. Absent: lymphadenopathy - *Routine Respiratory Exam Present: CTA bilaterally - *Routine Cardiovascular Exam Present: RRR, murmur (2/6 systolic) - *Routine Abdominal Exam Present: soft, normoactive bowel sounds. Absent: tenderness - *Routine Extremities Exam Absent: edema Comments: dressing in place over right foot - *Routine Skin Exam Present: warm. Absent: rash - *Routine Neurological Exam Present: alert, oriented X3 Assessment and Plan (1) Disorientated Current visit: Yes Status: Acute Category: Medical Code(s): R41.0 - Disorientation, unspecified (2) Osteomyelitis of right foot Current visit: Yes Status: Acute Category: Medical Code(s): M86.9 - Osteomyelitis, unspecified (3) Arterial insufficiency of lower extremity Current visit: No Status: Acute Category: Medical Code(s): I73.9 - Peripheral vascular disease, unspecified (4) History of left below knee amputation Current visit: No Status: Acute Category: Medical Code(s): Z89.512 - Acquired absence of left leg below knee (5) Coronary arteriosclerosis Current visit: No Status: Chronic Category: Medical Code(s): I25.10 - Atherosclerotic heart disease of [place] coronary artery without angina pectoris (6) Diabetes mellitus Current visit: No Status: Chronic Qualifiers: Diabetes mellitus type: 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
--- NOTE | 2019-10-27 08:51 | HMH.PHAINT ---
MEDICATION RECONCILIATION COMPLETED ON PATIENT USING LIST FROM [facility] OFFICE. -SANDHYA LUTHER, YASIRD
--- NOTE | 2019-10-27 09:06 | P.CONPHA_ITS ---
[facility] Pharmacy VTE Monitoring - Patient Demographics Admission date: 10/26/19 Report Date: 10/27/19 Time: 09:06 Allergies/Adverse Reactions: Patient Allergies azithromycin Allergy (Intermediate, Verified 10/26/19 13:19) S-DIFF. BREATHING daptomycin [DAPTOMYCIN] Allergy (Intermediate, Verified 10/26/19 13:19) I-RASH/ITCHING levofloxacin Allergy (Intermediate, Verified 10/26/19 13:19) I-RASH Penicillins Allergy (Intermediate, Verified 10/26/19 13:19) I-HIVES Height: 1.52 m Weight: 73.284 kg Patient Problems: Current Active Problems Disorientated (Acute) Osteomyelitis of right foot (Acute) - VTE Risk Labs: VTE Related Lab Results Hgb 9.8 g/dL (12.2-16.2) L 10/26/19 14:08 Hct 29.6 % (37.0-47.0) L 10/26/19 14:08 Plt Count 409 K/mm3 (142-424) 10/26/19 14:08 PT 14.5 seconds (9.4-11.8) H 10/26/19 14:08 INR 1.42 (0.9-1.1) H 10/26/19 14:08 APTT 40.1 seconds (23.6-34.0) H D 10/26/19 14:08 BUN 22 mg/dl (7-17) H 10/26/19 14:08 Creatinine 1.10 mg/dl (0.52-1.04) H 10/26/19 14:08 Was VTE Risk Assessment Performed: Yes VTE Score: 9 VTE Risk Level: Moderate Risk - Prophylaxis VTE Prophylaxis Ordered?: Yes Types of VTE Prophylaxis: Pharmacological Pharmacologic Type: Enoxaparin - VTE Diagnosis Confirmed Treatment or plan recommended: Continue Current Treatment
[2019-10-27 10:41] LABS: Tobramycin,Random 2.6 ug/ml
[2019-10-27 11:08] LABS: POC Glucose,Bedside 295 (70-110)
--- NOTE | 2019-10-27 11:41 | HMH.PHACONS ---
- Pharmacy Consult Date: 10/27/19 Time: 11:43 Referring provider: DR. CAVAZOS Reason for Consult:: TOBRAMYCIN LEVELS AND DOSE CHANGE Allergies and ADEs:: Allergies Allergy/AdvReac Type Severity Reaction Status Date / Time azithromycin Allergy Intermediate S-DIFF. Verified 10/26/19 13:19 BREATHING daptomycin [DAPTOMYCIN] Allergy Intermediate I-RASH/ITCH Verified 10/26/19 13:19 ING levofloxacin Allergy Intermediate I-RASH Verified 10/26/19 13:19 Penicillins Allergy Intermediate I-HIVES Verified 10/26/19 13:19 Home Medications:: Home Medications Medication Instructions Recorded Confirmed Type amiloride 5 mg tablet 5 mg PO DAILY 09/22/17 10/26/19 History baclofen 10 mg tablet 10 mg PO DAILY 09/22/17 10/26/19 History clopidogrel 75 mg tablet 75 mg PO DAILY 09/22/17 10/26/19 History glimepiride 2 mg tablet 2 mg PO DAILY 09/22/17 10/26/19 History metolazone 5 mg tablet 5 mg PO DAILY 09/22/17 10/26/19 History Donepezil HCl [Aricept 5mg 5 mg PO HS 04/14/18 10/26/19 History Tablet] Potassium Chloride 60 meq PO TID 04/14/18 10/26/19 History Spironolactone [Aldactone 25mg 25 mg PO DAILY 04/14/18 10/26/19 History Tab] Metoprolol Tartrate [Lopressor 12.5 mg PO DAILY 05/09/19 10/26/19 History 25mg tablet] Loratadine [Claritin] 10 mg PO DAILY 05/10/19 10/26/19 History Cholecalciferol (Vitamin D3) 4,000 units PO DAILY 07/23/19 10/26/19 History [Vitamin D3] Insulin Lispro [HumaLOG 100 0 unit SQ ACHS 07/23/19 10/27/19 History units/mL 3mL vial (SSI)] Acetaminophen [Acetaminophen Extra 500 mg PO TID #0 08/15/19 10/27/19 History Strength] Baclofen 20 mg PO HS 08/15/19 10/26/19 History Linagliptin/Metformin HCl 1 tab PO BID 08/15/19 10/26/19 History [Jentadueto 2.5 mg-1000 mg Tab] Saccharomyces Boulardii [Florastor] 250 mg PO DAILY #0 08/15/19 10/27/19 History Warfarin Sodium 7.5 mg PO DAILY 09/11/19 10/27/19 History ertapenem 1 gram solution for 1 gm IV DAILY 09/11/19 10/27/19 History injection linezolid 600 mg tablet 600 mg PO BID 09/11/19 10/26/19 History Cyanocobalamin (Vitamin B-12) 500 mcg PO DAILY 10/10/19 10/26/19 History [Vitamin B-12] Ferrous Sulfate [Ferrous Sulfate 325 mg PO TID 10/10/19 10/26/19 History 325mg Tablet] Furosemide [Furosemide 40MG tAB] 40 mg PO DAILY 10/10/19 10/26/19 History Insulin Detemir [Levemir 60 unit SQ BID 10/10/19 10/26/19 History 100units/mL 3mL flexpen] Multivitamin 1 each PO DAILY 10/10/19 10/27/19 History Atorvastatin Calcium [Atorvastatin 40 mg PO DAILY 10/26/19 10/27/19 History 40mg Tab] Calcium Carbonate [Tums Ultra 1,177 mg PO TID 10/27/19 10/27/19 History Strength] Height: 1.52 m Weight: 73.284 kg Laboratory Results:: Laboratory Results - last 24 hr 10/26/19 14:08: WBC 11.9 H, RBC 3.55 L, Hgb 9.8 L, Hct 29.6 L, MCV 83.2, MCH 27.7, MCHC 33.2, RDW 21.2 H, Plt Count 409, MPV 7.6, Neut % (Auto) 71.6, Lymph % (Auto) 18.9, [place] % (Auto) 7.5, Eos % (Auto) 1.3, Baso % (Auto) 0.6, Neut # (Auto) 8.5 H, Lymph # (Auto) 2.3, [place] # (Auto) 0.9, Eos # (Auto) 0.2, Baso # (Auto) 0.1, ESR > 140 H 10/26/19 14:08: PT 14.5 H, INR 1.42 H, APTT 40.1 H D 10/26/19 14:08: Sodium 138, Potassium 5.0, Chloride 99, Carbon Dioxide 25, Anion Gap 19.0 H, BUN 22 H, Creatinine 1.10 H, Estimated GFR 52 L, Est GFR ( Amer) 63, Glucose 217 H, Calcium 9.9, Total Bilirubin 0.6, AST 21, ALT 21, Alkaline Phosphatase 116, C-Reactive Protein 122.2 H, Total Protein 8.0, Albumin 4.6, Globulin 3.4 H, Albumin/Globulin Ratio 1.4 10/26/19 14:08: Blood Type B Negative, Antibody Screen Negative 10/26/19 15:53: Troponin I < 0.01 10/26/19 15:53: Lactate 3.5 H 10/26/19 16:34: POC Glucose 268 H 10/26/19 20:48: POC Glucose 173 H 10/26/19 20:52: Lactate 3.0 H 10/26/19 23:05: Lactate 2.4 H 10/27/19 01:55: Random Tobramycin 8.8 10/27/19 06:07: POC Glucose 199 H 10/27/19 09:55: Random Tobramycin 2.6 10/27/19 10:58: POC Glucose 295 H Medical History: Reports:: Arrhythmia, A
--- NOTE | 2019-10-27 12:22 | HMH.ORTHPN ---
Subjective Date: 10/27/19 Time: 11:00 Principal diagnosis: R foot osteomyelitis Interval history: The patient reports feeling better today after IVF and antibiotics. She remains afebrile. Blood cultures pending. PN: Obj Ex Vital signs: Temp Pulse Resp BP Pulse Ox 98.2 F 82 18 119/75 95 10/27/19 08:00 10/27/19 08:00 10/27/19 08:00 10/27/19 08:00 10/27/19 08:00 - Constitutional no acute distress - Routine HEENT Exam Head: Present: normocephalic, scalp tenderness ENT: Present: mucous membranes moist - Routine Respiratory Exam Absent: respiratory distress, wheezes - Routine Cardiovascular Exam Present: RRR - Routine Abdominal Exam Present: soft, hernia. Absent: distended - Routine Exam Comments: purewick catheter in place - Routine Extremities Exam Present: pulses intact, normal capillary refill, tenderness, amputation. Absent: calf tenderness, Chivo's sign, pallor, extremity cold to touch Comments: s/p L BKA R TMA jeremy intact, few retention sutures remain mild swelling R foot, mild melissa-wound cellulitis around central incision, no ascending erythema TMA incision with black eschar, dry and intact w/o dehiscence; approx 11 x 2.3cm small posterior heel ulcer as well, covered with black eschar no active drainage, no purulence or expressible fluid, moderately tender weakly palpable pedal pulses R foot, which is slightly cool to touch but remains pink with adequate capillary refill sensation diminished to light touch over the R foot; this is baseline R calf soft, non-tender - Routine Skin Exam Present: erythema, warm, wounds - Routine Neurological Exam Present: alert, oriented X3, sensory deficit, moving all extremities, normal tone, vision grossly intact, hearing grossly intact, normal speech. Absent: motor deficit, altered mental status - Routine Psychiatric Exam Present: normal affect Progress Note: A&P (1) Disorientated Status: Acute Current Visit: Yes (2) Osteomyelitis of right foot Status: Acute Current Visit: Yes (3) Arterial insufficiency of lower extremity Status: Acute Current Visit: No (4) History of left below knee amputation Status: Acute Current Visit: No (5) Coronary arteriosclerosis Status: Chronic Current Visit: No (6) Diabetes mellitus Status: Chronic Current Visit: No (7) Hemiparesis affecting left side as late effect of cerebrovascular accident Status: Chronic Current Visit: No (8) History of CVA (cerebrovascular accident) Status: Chronic Current Visit: No (9) Hyperlipidemia Status: Chronic Current Visit: No (10) Hypertensive heart disease without heart failure Status: Chronic Current Visit: No (11) Type 2 diabetes mellitus with diabetic neuropathy, with long-term current use of insulin Status: Chronic Current Visit: No (12) SIRS (systemic inflammatory response syndrome) Status: Acute Current Visit: No (13) Sepsis Status: Acute Current Visit: No Assessment and Plan for All Diagnoses:: 53yo F with RLE chronic non-healing ulcers + osteomyelitis s/p R TMA 07/2019 --> revised 08/2019 with positive intra-op bone cultures, wound necrosis, persistent pain and signs of increasing infection suspicious for sepsis. -- NWB RLE, continue local wound care with daily dressing changes -- R foot wound: betadine-moistened gauze to wounds, followed by dry 4x4s, ABD pads, Kerlix and JONO wrap -- offload R foot + L BKA stump; recommend flotation mattress -- anticipate R BKA on Tuesday10/30/19. Warfarin has been stopped and patient placed on lovenox; will hold 12 hours prior to surgery.
[2019-10-27 16:00] VITALS: BP 118/57; PULSE 85; RESP 18; TEMP 36.9; O2SAT 97
[2019-10-27 16:40] LABS: POC Glucose,Bedside 271 (70-110)
--- NOTE | 2019-10-27 17:35 | PC.NURSE ---
verbal order per dr. mccoy: daily dressing change. betadine/saline moistened 4x4, dry 4x4, abd pad, kerlex, and kristie bandage.
[2019-10-27 20:00] VITALS: BP 133/56; PULSE 93; RESP 20; TEMP 37.6; O2SAT 96
[2019-10-27 22:23] VITALS: TEMP 37.1
[2019-10-28 00:45] LABS: POC Glucose,Bedside 280 (70-110)
[2019-10-28 04:00] VITALS: BP 142/77; PULSE 87; RESP 20; TEMP 37.1; O2SAT 98
[2019-10-28 05:00] VITALS: BMI 30.9
[2019-10-28 05:51] LABS: POC Glucose,Bedside 248 (70-110)
--- NOTE | 2019-10-28 07:08 | PC.NURSE ---
Pt did well over night. No complaints reported to staff. Drsg remains C/D/I to RLE. Purwick in place w/ clear,yellow urine noted, purwick changed this shift. VSS.
[2019-10-28 07:35] LABS: Chloride 98 mmol/L (98-107); Potassium 4.1 mmoL/L (3.5-5.1); Sodium 135 mmol/L (136-145)
[2019-10-28 07:38] LABS: Anion Gap 12.1 mEq/L (5-15); Blood Urea Nitrogen 17 mg/dl (7-17); Calcium 9.6 mg/dl (8.4-10.2); Carbon Dioxide 29 mmol/L (22.0-30.0); Creatinine Clearance Estimated 75 mL/min (50-200); Estimated Glomerular Filt Rate 58 ml/min (>60); GFR (African American) 71 ML/MIN (>60); Glucose 281 mg/dl (74-100)
[2019-10-28 07:39] LABS: Basophils % 0.4 % (0.1-2.0); Eosinophils # 0.2 K/mm3 (0.0-0.4); Eosinophils % 1.6 % (0.1-12.0); Hematocrit 28.5 % (37.0-47.0); Hemoglobin 9.4 g/dL (12.2-16.2); Lymphocytes # 1.7 K/mm3 (0.7-4.5); Lymphocytes % 17.9 % (10-50); Mean Corpuscular HGB Conc 32.9 g/dL (31.8-35.4); Mean Corpuscular Hemoglobin 26.9 pg (27.0-31.2); Mean Corpuscular Volume 81.8 fl (81-99); Mean Platelet Volume 7.2 fl (7.4-10.4); Monocytes # 0.8 K/mm3 (0.1-1.0); Monocytes % 7.9 % (1.7-9.3); Neutrophils # 7.1 K/mm3 (1.8-7.8); Neutrophils % 72.2 % (37.0-80.0); Platelet Count 427 K/mm3 (142-424); Red Blood Count 3.49 M/mm3 (4.20-5.40); White Blood Count 9.8 K/mm3 (4.8-10.8)
[2019-10-28 08:00] VITALS: BP 112/63; PULSE 95; RESP 20; TEMP 36.9; O2SAT 97
--- NOTE | 2019-10-28 08:16 | HMH.ACPN2 ---
Internal Medicine - PN: Subj *Date: 10/28/19 *Time: 08:16 Interval history: Patient with no new complaints today. She is tolerating regular diet. Watching a [employer] service on TV. Exam Vital signs and Labs for Last 24 Hours: Temp Pulse Resp BP Pulse Ox 98.8 F 87 20 142/77 H 98 10/28/19 04:00 10/28/19 04:00 10/28/19 04:00 10/28/19 04:00 10/28/19 04:00 Laboratory Results - last 24 hr 10/27/19 09:55: Random Tobramycin 2.6 10/27/19 10:58: POC Glucose 295 H 10/27/19 16:26: POC Glucose 271 H 10/27/19 20:27: POC Glucose 280 H 10/28/19 05:44: POC Glucose 248 H 10/28/19 07:17: WBC 9.8, RBC 3.49 L, Hgb 9.4 L, Hct 28.5 L, MCV 81.8, MCH 26.9 L, MCHC 32.9, RDW 21.0 H, Plt Count 427 H, MPV 7.2 L, Neut % (Auto) 72.2, Lymph % (Auto) 17.9, [place] % (Auto) 7.9, Eos % (Auto) 1.6, Baso % (Auto) 0.4, Neut # (Auto) 7.1, Lymph # (Auto) 1.7, [place] # (Auto) 0.8, Eos # (Auto) 0.2, Baso # (Auto) 0.0 10/28/19 07:17: Sodium 135 L, Potassium 4.1, Chloride 98, Carbon Dioxide 29, Anion Gap 12.1, BUN 17, Creatinine 1.00, Estimated Creat Clear 75, Estimated GFR 58 L, Est GFR ( Amer) 71, Glucose 281 H, Calcium 9.6 I & O for Last 24 hours: Intake & Output 10/25/19 10/26/19 10/27/19 10/28/19 23:59 23:59 23:59 23:59 Intake Total 100 / 100 1590 / 1590 Output Total 1202 / 1202 1100 / 1100 Balance 100 / 100 388 / 388 -1100 / -1100 Weight 161 lb 161 lb 9 oz 157 lb 5 oz - Constitutional no acute distress - *Routine HEENT Exam Head: Present: normocephalic Eye: Present: EOMI ENT: Present: mucous membranes moist - *Routine Neck Exam Present: supple. Absent: lymphadenopathy - *Routine Respiratory Exam Present: CTA bilaterally - *Routine Cardiovascular Exam Present: RRR, murmur (2/6 systolic) - *Routine Abdominal Exam Present: soft, normoactive bowel sounds. Absent: tenderness - *Routine Extremities Exam Absent: cyanosis, clubbing, edema Comments: dressing in place on right foot - *Routine Skin Exam Present: warm. Absent: rash - *Routine Neurological Exam Present: alert Assessment and Plan (1) Disorientated Current visit: Yes Status: Acute Category: Medical Code(s): R41.0 - Disorientation, unspecified (2) Osteomyelitis of right foot Current visit: Yes Status: Acute Category: Medical Code(s): M86.9 - Osteomyelitis, unspecified (3) Arterial insufficiency of lower extremity Current visit: No Status: Acute Category: Medical Code(s): I73.9 - Peripheral vascular disease, unspecified (4) History of left below knee amputation Current visit: No Status: Acute Category: Medical Code(s): Z89.512 - Acquired absence of left leg below knee (5) Coronary arteriosclerosis Current visit: No Status: Chronic Category: Medical Code(s): I25.10 - Atherosclerotic heart disease of [place] coronary artery without angina pectoris (6) Diabetes mellitus Current visit: No Status: Chronic Qualifiers: Diabetes mellitus type: type 2 Diabetes mellitus detention insulin use: without detention use Diabetes mellitus complication status: with neurologic complications Diabetes mellitus complication detail: with polyneuropathy Qualified Code(s): E11.42 - Type 2 diabetes mellitus with diabetic polyneuropathy Category: Medical Code(s): E11.9 - Type 2 diabetes mellitus without complications (7) Hemiparesis affecting left side as late effect of cerebrovascular accident Current visit: No Status: Chronic Category: Medical Code(s): I69.354 - Hemiplegia and hemiparesis following cerebral infarction affecting left non-dominant side (8) History of CVA (cerebrovascular accident) Current visit: No Status: Chronic Category: Medical Code(s): Z86.73 - Personal history of transient ischemic attack (TIA), and cerebral infarction without residual deficits (9) Hyperlipidemia Current visit: No Status: Chronic Qualifiers: Hyperlipidemia type: unspecified Qualified Cod
[2019-10-28 10:36] VITALS: BMI 30.7
[2019-10-28 11:19] LABS: POC Glucose,Bedside 378 (70-110)
--- NOTE | 2019-10-28 12:44 | HMH.ORTHPN ---
Subjective Date: 10/28/19 Time: 12:00 Principal diagnosis: R foot osteomyelitis Interval history: The patient is feeling well, eating lunch. No complaints. Remains afebrile, vitals stable. PN: Obj Ex Vital signs: Temp Pulse Resp BP Pulse Ox 98.5 F 95 H 20 112/63 97 10/28/19 08:00 10/28/19 08:00 10/28/19 08:00 10/28/19 08:00 10/28/19 08:00 - Constitutional no acute distress - Routine HEENT Exam Head: Present: normocephalic Eye: Present: EOMI ENT: Present: mucous membranes moist - Routine Respiratory Exam Absent: respiratory distress, wheezes - Routine Cardiovascular Exam Present: RRR - Routine Abdominal Exam Present: soft. Absent: distended - Routine Extremities Exam Comments: s/p L BKA R TMA jeremy intact, few retention sutures remain mild swelling R foot, mild melissa-wound cellulitis around central incision, no ascending erythema TMA incision with black eschar, dry and intact w/o dehiscence; approx 11 x 2.3cm small posterior heel ulcer as well, covered with black eschar no active drainage, no purulence or expressible fluid, moderately tender weakly palpable pedal pulses R foot, which is slightly cool to touch but remains pink with adequate capillary refill sensation diminished to light touch over the R foot; this is baseline R calf soft, non-tender - Routine Skin Exam Present: warm - Routine Neurological Exam Present: alert, oriented X3, sensory deficit, moving all extremities, normal tone, hearing grossly intact. Absent: motor deficit, altered mental status Progress Note: A&P (1) Disorientated Status: Acute Current Visit: Yes (2) Osteomyelitis of right foot Status: Acute Current Visit: Yes (3) Arterial insufficiency of lower extremity Status: Acute Current Visit: No (4) History of left below knee amputation Status: Acute Current Visit: No (5) Coronary arteriosclerosis Status: Chronic Current Visit: No (6) Diabetes mellitus Status: Chronic Current Visit: No (7) Hemiparesis affecting left side as late effect of cerebrovascular accident Status: Chronic Current Visit: No (8) History of CVA (cerebrovascular accident) Status: Chronic Current Visit: No (9) Hyperlipidemia Status: Chronic Current Visit: No (10) Hypertensive heart disease without heart failure Status: Chronic Current Visit: No (11) Type 2 diabetes mellitus with diabetic neuropathy, with long-term current use of insulin Status: Chronic Current Visit: No (12) SIRS (systemic inflammatory response syndrome) Status: Acute Current Visit: No (13) Sepsis Status: Acute Current Visit: No Assessment and Plan for All Diagnoses:: 53yo F with RLE chronic non-healing ulcers + osteomyelitis s/p R TMA 07/2019 --> revised 08/2019 with positive intra-op bone cultures, wound necrosis, persistent pain and signs of increasing infection suspicious for sepsis. -- NWB RLE, continue local wound care with daily dressing changes -- R foot wound: betadine-moistened gauze to wounds, followed by dry 4x4s, ABD pads, Kerlix and JONO wrap -- offload R foot + L BKA stump; recommend flotation mattress -- anticipate R BKA on Tuesday10/30/19. Warfarin has been stopped and patient placed on lovenox; will hold 12 hours prior to surgery.
[2019-10-28 16:00] VITALS: BP 131/69; PULSE 96; RESP 20; TEMP 37.7; O2SAT 94
[2019-10-28 17:02] LABS: POC Glucose,Bedside 394 (70-110)
--- NOTE | 2019-10-28 17:43 | PC.NURSE ---
SPOKE WITH DR. CAVAZOS REGARDING NOT BEING ABLE TO FLUSH PT PICC LINE. STATED TO GIVE CATHFLOW. INSTALLATION ENGINEER STATED IT WAS UNAVAILABLE IN [facility] [place]. PHARMACY RECOMMENDED HEPARIN. AGREED TO HEPERIN AND STATED FOR PHARMACY TO DOSE. CINTHYA IN PHARMACY STATED TO GIVE HEPARIN FLUSH 500UNITS. Yonis BENSON, INSTALLATION ENGINEER, NOTIFIED AND WAS AT BEDSIDE WITH RN WHEN HEPARIN ADMIN. WILL CONT. TO MONITOR.
--- NOTE | 2019-10-28 18:16 | PC.NURSE ---
heparin was unsuccessful. md lopez aware. stated to give cathflow. online marketing specialist pharmacist, silvia, made aware. states he will come in. pt stated staff could insert a peripheral iv to give her her antibiotics. 20g inserted in her left wrist with one attempt. will cont. to monitor pt.
--- NOTE | 2019-10-28 18:57 | PC.NURSE ---
VANC HAS NOT BEEN GIVEN BECAUSE VANC TROUGH IS NOT BACK YET. WILL PASS TO AGRICULTURAL CONSULTANT NURSE.
[2019-10-28 19:07] LABS: Vancomycin,Trough 9.6 ug/mL (5.0-10.0)
[2019-10-28 19:57] VITALS: BP 128/65; PULSE 86; RESP 16; TEMP 36.9; O2SAT 91
[2019-10-28 21:44] LABS: POC Glucose,Bedside 420 (70-110)
--- NOTE | 2019-10-29 03:48 | PC.NURSE ---
A&OX4. PT TOLERATING RA WELL. PT IN BED T/O SHIFT, DOES WELL TURNING HERSELF IN BED. PUREWICK IN PLACE, DRAINING DARK YELLOW URINE. PT HAS HAD NO C/O PAIN, SOA, NA OR VO THIS SHIFT. PT R HEEL WRAPPED, DRESSING CDI. RLE ELEVATED T/O SHIFT. PT HAS RESTED WELL MAJORITY OF NIGHT. NO COMPLAINTS THUS FAR, VSS WILL CONTINUE TO MONITOR.
[2019-10-29 04:00] VITALS: BP 132/70; PULSE 91; RESP 16; TEMP 37.6; O2SAT 91
[2019-10-29 06:06] LABS: POC Glucose,Bedside 303 (70-110)
[2019-10-29 06:33] LABS: Basophils # 0.1 K/mm3 (0-0.2); Basophils % 0.7 % (0.1-2.0); Eosinophils # 0.2 K/mm3 (0.0-0.4); Eosinophils % 1.6 % (0.1-12.0); Hematocrit 27.7 % (37.0-47.0); Hemoglobin 8.9 g/dL (12.2-16.2); Lymphocytes # 2.3 K/mm3 (0.7-4.5); Lymphocytes % 21.9 % (10-50); Mean Corpuscular HGB Conc 32.2 g/dL (31.8-35.4); Mean Corpuscular Hemoglobin 26.2 pg (27.0-31.2); Mean Corpuscular Volume 81.4 fl (81-99); Mean Platelet Volume 7.3 fl (7.4-10.4); Monocytes # 0.9 K/mm3 (0.1-1.0); Monocytes % 8.3 % (1.7-9.3); Neutrophils # 7.1 K/mm3 (1.8-7.8); Neutrophils % 67.4 % (37.0-80.0); Platelet Count 399 K/mm3 (142-424); White Blood Count 10.5 K/mm3 (4.8-10.8)
[2019-10-29 06:40] LABS: INR 1.04 (0.9-1.1); Prothrombin Time 10.8 seconds (9.4-11.8)
[2019-10-29 06:48] LABS: Chloride 94 mmol/L (98-107); Potassium 3.9 mmoL/L (3.5-5.1); Sodium 132 mmol/L (136-145)
[2019-10-29 06:51] LABS: Anion Gap 12.9 mEq/L (5-15); Blood Urea Nitrogen 19 mg/dl (7-17); Calcium 9.4 mg/dl (8.4-10.2); Carbon Dioxide 29 mmol/L (22.0-30.0); Creatinine Clearance Estimated 68 mL/min (50-200); Estimated Glomerular Filt Rate 52 ml/min (>60); GFR (African American) 63 ML/MIN (>60); Glucose 301 mg/dl (74-100)
[2019-10-29 06:57] LABS: C-Reactive Protein 121.2 mg/L (0-4)
[2019-10-29 07:38] LABS: Erythrocyte Sedimentation Rate > 140 mm/hr (0-30)
[2019-10-29 08:00] VITALS: BP 111/54; PULSE 91; RESP 18; TEMP 37.2; O2SAT 90
--- NOTE | 2019-10-29 08:19 | HMH.ACPN2 ---
<Keisha Pedersen - Last Filed: 10/29/19 08:19> Internal Medicine - PN: Subj *Date: 10/29/19 *Time: 08:19 Interval history: States she is having her foot taken off tomorrow. The pain in the foot is better. She was able to sleep last night. She is eating well. She set up in her wheelchair yesterday for dinner. She denies chest pain and shortness of breath. White blood cell count has normalized. Hemoglobin is 8.9 hematocrit 27.7. Blood sugars have been high And she remains on sliding scale. Exam Vital signs and Labs for Last 24 Hours: Temp Pulse Resp BP Pulse Ox 99.7 F H 91 H 16 132/70 91 L 10/29/19 04:00 10/29/19 04:00 10/29/19 04:00 10/29/19 04:00 10/29/19 04:00 Laboratory Results - last 24 hr 10/28/19 11:10: POC Glucose 378 H* 10/28/19 16:49: POC Glucose 394 H* 10/28/19 18:15: Vancomycin Trough 9.6 10/28/19 21:29: POC Glucose 420 H* 10/29/19 05:35: POC Glucose 303 H* 10/29/19 06:20: WBC 10.5, RBC 3.40 L, Hgb 8.9 L, Hct 27.7 L, MCV 81.4, MCH 26.2 L, MCHC 32.2, RDW 21.0 H, Plt Count 399, MPV 7.3 L, Neut % (Auto) 67.4, Lymph % (Auto) 21.9, [place] % (Auto) 8.3, Eos % (Auto) 1.6, Baso % (Auto) 0.7, Neut # (Auto) 7.1, Lymph # (Auto) 2.3, [place] # (Auto) 0.9, Eos # (Auto) 0.2, Baso # (Auto) 0.1 10/29/19 06:20: PT 10.8, INR 1.04 10/29/19 06:20: Sodium 132 L, Potassium 3.9, Chloride 94 L, Carbon Dioxide 29, Anion Gap 12.9, BUN 19 H, Creatinine 1.10 H, Estimated Creat Clear 68, Estimated GFR 52 L, Est GFR ( Amer) 63, Glucose 301 H, Calcium 9.4, C-Reactive Protein 121.2 H 10/29/19 06:20: ESR > 140 H I & O for Last 24 hours: Intake & Output 10/26/19 10/27/19 10/28/19 10/29/19 11:59 11:59 11:59 11:59 Intake Total 850 / 850 1660 / 1660 120 / 120 Output Total 501 / 501 1801 / 1801 1999 Balance 349 / 349 -141 / -141 -1880 / -1880 Weight 161 lb 9 oz 156 lb 8.451 oz 153 lb 4 oz Microbiology Reports for the Last 24 Hours: Microbiology 10/26/19 15:53 Blood Blood Culture - Preliminary NO GROWTH AFTER 48 HOURS 10/26/19 15:53 Blood Blood Culture - Preliminary NO GROWTH AFTER 48 HOURS - Constitutional no acute distress Comments: Sitting up in the bed eating her breakfast. Appears comfortable. - *Routine Respiratory Exam Present: CTA bilaterally - *Routine Cardiovascular Exam Present: RRR, murmur - *Routine Abdominal Exam Present: soft, normoactive bowel sounds, obese. Absent: tenderness - *Routine Extremities Exam Comments: Left leg without edema. Right leg with Frank dressing which is clean and dry. - *Routine Neurological Exam Present: alert, oriented X3 Assessment and Plan (1) Disorientated Current visit: Yes Status: Acute Category: Medical Code(s): R41.0 - Disorientation, unspecified (2) Osteomyelitis of right foot Current visit: Yes Status: Acute Category: Medical Code(s): M86.9 - Osteomyelitis, unspecified (3) Arterial insufficiency of lower extremity Current visit: No Status: Acute Category: Medical Code(s): I73.9 - Peripheral vascular disease, unspecified (4) History of left below knee amputation Current visit: No Status: Acute Category: Medical Code(s): Z89.512 - Acquired absence of left leg below knee (5) Coronary arteriosclerosis Current visit: No Status: Chronic Category: Medical Code(s): I25.10 - Atherosclerotic heart disease of [place] coronary artery without angina pectoris (6) Diabetes mellitus Current visit: No Status: Chronic Qualifiers: Diabetes mellitus type: type 2 Diabetes mellitus watermaster insulin use: without watermaster use Diabetes mellitus complication status: with neurologic complications Diabetes mellitus complication detail: with polyneuropathy Qualified Code(s): E11.42 - Type 2 diabetes mellitus with diabetic polyneuropathy Category: Medical Code(s): E11.9 - Type 2 diabetes mellitus without complications (7)
--- NOTE | 2019-10-29 08:29 | HMH.PHACONS ---
- Pharmacy Consult Date: 10/29/19 Time: 08:29 Referring provider: DR. CAVAZOS Reason for Consult:: VANCOMYCIN TROUGH LEVEL Allergies and ADEs:: Allergies Allergy/AdvReac Type Severity Reaction Status Date / Time azithromycin Allergy Intermediate S-DIFF. Verified 10/26/19 13:19 BREATHING daptomycin [DAPTOMYCIN] Allergy Intermediate I-RASH/ITCH Verified 10/26/19 13:19 ING levofloxacin Allergy Intermediate I-RASH Verified 10/26/19 13:19 Penicillins Allergy Intermediate I-HIVES Verified 10/26/19 13:19 Home Medications:: Home Medications Medication Instructions Recorded Confirmed Type amiloride 5 mg tablet 5 mg PO DAILY 09/22/17 10/26/19 History baclofen 10 mg tablet 10 mg PO DAILY 09/22/17 10/26/19 History clopidogrel 75 mg tablet 75 mg PO DAILY 09/22/17 10/26/19 History glimepiride 2 mg tablet 2 mg PO DAILY 09/22/17 10/26/19 History metolazone 5 mg tablet 5 mg PO DAILY 09/22/17 10/26/19 History Donepezil HCl [Aricept 5mg 5 mg PO HS 04/14/18 10/26/19 History Tablet] Potassium Chloride 60 meq PO TID 04/14/18 10/26/19 History Spironolactone [Aldactone 25mg 25 mg PO DAILY 04/14/18 10/26/19 History Tab] Metoprolol Tartrate [Lopressor 12.5 mg PO DAILY 05/09/19 10/26/19 History 25mg tablet] Loratadine [Claritin] 10 mg PO DAILY 05/10/19 10/26/19 History Cholecalciferol (Vitamin D3) 4,000 units PO DAILY 07/23/19 10/26/19 History [Vitamin D3] Insulin Lispro [HumaLOG 100 0 unit SQ ACHS 07/23/19 10/27/19 History units/mL 3mL vial (SSI)] Acetaminophen [Acetaminophen Extra 500 mg PO TID #0 08/15/19 10/27/19 History Strength] Baclofen 20 mg PO HS 08/15/19 10/26/19 History Linagliptin/Metformin HCl 1 tab PO BID 08/15/19 10/26/19 History [Jentadueto 2.5 mg-1000 mg Tab] Saccharomyces Boulardii [Florastor] 250 mg PO DAILY #0 08/15/19 10/27/19 History Warfarin Sodium 7.5 mg PO DAILY 09/11/19 10/27/19 History ertapenem 1 gram solution for 1 gm IV DAILY 09/11/19 10/27/19 History injection linezolid 600 mg tablet 600 mg PO BID 09/11/19 10/26/19 History Cyanocobalamin (Vitamin B-12) 500 mcg PO DAILY 10/10/19 10/26/19 History [Vitamin B-12] Ferrous Sulfate [Ferrous Sulfate 325 mg PO TID 10/10/19 10/26/19 History 325mg Tablet] Furosemide [Furosemide 40MG tAB] 40 mg PO DAILY 10/10/19 10/26/19 History Insulin Detemir [Levemir 60 unit SQ BID 10/10/19 10/26/19 History 100units/mL 3mL flexpen] Multivitamin 1 each PO DAILY 10/10/19 10/27/19 History Atorvastatin Calcium [Atorvastatin 40 mg PO DAILY 10/26/19 10/27/19 History 40mg Tab] Calcium Carbonate [Tums Ultra 1,177 mg PO TID 10/27/19 10/27/19 History Strength] Height: 1.52 m Weight: 69.513 kg Laboratory Results:: Laboratory Results - last 24 hr 10/28/19 11:10: POC Glucose 378 H* 10/28/19 16:49: POC Glucose 394 H* 10/28/19 18:15: Vancomycin Trough 9.6 10/28/19 21:29: POC Glucose 420 H* 10/29/19 05:35: POC Glucose 303 H* 10/29/19 06:20: WBC 10.5, RBC 3.40 L, Hgb 8.9 L, Hct 27.7 L, MCV 81.4, MCH 26.2 L, MCHC 32.2, RDW 21.0 H, Plt Count 399, MPV 7.3 L, Neut % (Auto) 67.4, Lymph % (Auto) 21.9, [place] % (Auto) 8.3, Eos % (Auto) 1.6, Baso % (Auto) 0.7, Neut # (Auto) 7.1, Lymph # (Auto) 2.3, [place] # (Auto) 0.9, Eos # (Auto) 0.2, Baso # (Auto) 0.1 10/29/19 06:20: PT 10.8, INR 1.04 10/29/19 06:20: Sodium 132 L, Potassium 3.9, Chloride 94 L, Carbon Dioxide 29, Anion Gap 12.9, BUN 19 H, Creatinine 1.10 H, Estimated Creat Clear 68, Estimated GFR 52 L, Est GFR ( Amer) 63, Glucose 301 H, Calcium 9.4, C-Reactive Protein 121.2 H 10/29/19 06:20: ESR > 140 H Medical History: Reports:: Arrhythmia, Atherosclerotic Heart Disease, Cancer, Carotid Stenosis, Congestive Heart Failure, Coronary Artery Disease, Cerebrovascular Accident, Deep Vein Thrombosis, Depression, Diabetes Mellitus Type 2, Gall Bladder Disease, Heart Murmur, Hyperlipidemia, Hypertension, MRSA, Myocardial Infarction, Peripheral Artery Disease, Peripheral Vascular Disease, Amy
--- NOTE | 2019-10-29 08:41 | HMH.ACPN ---
Internal Medicine - PN: Subj *Date: 10/29/19 *Time: 08:41 Exam Vital signs and Labs for Last 24 Hours: Temp Pulse Resp BP Pulse Ox 99.0 F 91 H 18 111/54 L 90 L 10/29/19 08:00 10/29/19 08:00 10/29/19 08:00 10/29/19 08:00 10/29/19 08:00 Laboratory Results - last 24 hr 10/28/19 11:10: POC Glucose 378 H* 10/28/19 16:49: POC Glucose 394 H* 10/28/19 18:15: Vancomycin Trough 9.6 10/28/19 21:29: POC Glucose 420 H* 10/29/19 05:35: POC Glucose 303 H* 10/29/19 06:20: WBC 10.5, RBC 3.40 L, Hgb 8.9 L, Hct 27.7 L, MCV 81.4, MCH 26.2 L, MCHC 32.2, RDW 21.0 H, Plt Count 399, MPV 7.3 L, Neut % (Auto) 67.4, Lymph % (Auto) 21.9, [place] % (Auto) 8.3, Eos % (Auto) 1.6, Baso % (Auto) 0.7, Neut # (Auto) 7.1, Lymph # (Auto) 2.3, [place] # (Auto) 0.9, Eos # (Auto) 0.2, Baso # (Auto) 0.1 10/29/19 06:20: PT 10.8, INR 1.04 10/29/19 06:20: Sodium 132 L, Potassium 3.9, Chloride 94 L, Carbon Dioxide 29, Anion Gap 12.9, BUN 19 H, Creatinine 1.10 H, Estimated Creat Clear 68, Estimated GFR 52 L, Est GFR ( Amer) 63, Glucose 301 H, Calcium 9.4, C-Reactive Protein 121.2 H 10/29/19 06:20: ESR > 140 H I & O for Last 24 hours: Intake & Output 10/26/19 10/27/19 10/28/19 10/29/19 23:59 23:59 23:59 23:59 Intake Total 100 / 100 1690 / 1690 840 / 840 240 / 240 Output Total 1202 / 1202 1800 / 1800 1300 / 1300 Balance 100 / 100 488 / 488 -960 / -960 -1060 / -1060 Weight 73.028 kg 73.284 kg 71 kg 69.513 kg Microbiology Reports for the Last 24 Hours: Microbiology 10/26/19 15:53 Blood Blood Culture - Preliminary NO GROWTH AFTER 48 HOURS 10/26/19 15:53 Blood Blood Culture - Preliminary NO GROWTH AFTER 48 HOURS Assessment and Plan (1) Disorientated Current visit: Yes Status: Acute Category: Medical Code(s): R41.0 - Disorientation, unspecified (2) Osteomyelitis of right foot Current visit: Yes Status: Acute Category: Medical Code(s): M86.9 - Osteomyelitis, unspecified (3) Arterial insufficiency of lower extremity Current visit: No Status: Acute Category: Medical Code(s): I73.9 - Peripheral vascular disease, unspecified (4) History of left below knee amputation Current visit: No Status: Acute Category: Medical Code(s): Z89.512 - Acquired absence of left leg below knee (5) Coronary arteriosclerosis Current visit: No Status: Chronic Category: Medical Code(s): I25.10 - Atherosclerotic heart disease of [place] coronary artery without angina pectoris (6) Diabetes mellitus Current visit: No Status: Chronic Qualifiers: Diabetes mellitus type: type 2 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: without extermination inspector use Diabetes mellitus complication status: with neurologic complications Diabetes mellitus complication detail: with polyneuropathy Qualified Code(s): E11.42 - Type 2 diabetes mellitus with diabetic polyneuropathy Category: Medical Code(s): E11.9 - Type 2 diabetes mellitus without complications (7) Hemiparesis affecting left side as late effect of cerebrovascular accident Current visit: No Status: Chronic Category: Medical Code(s): I69.354 - Hemiplegia and hemiparesis following cerebral infarction affecting left non-dominant side (8) History of CVA (cerebrovascular accident) Current visit: No Status: Chronic Category: Medical Code(s): Z86.73 - Personal history of transient ischemic attack (TIA), and cerebral infarction without residual deficits (9) Hyperlipidemia Current visit: No Status: Chronic Qualifiers: Hyperlipidemia type: unspecified Qualified Code(s): E78.5 - Hyperlipidemia, unspecified Category: Medical Code(s): E78.5 - Hyperlipidemia, unspecified (10) Hypertensive heart disease without heart failure Current visit: No Status: Chronic Category: Medical Code(s): I11.9 - Hypertensive heart disease without heart failure (11) Type 2 diabetes mellitus with diabeti
--- NOTE | 2019-10-29 10:46 | PC.NURSE ---
Did speak with Tonya pharmacist and Dr. Bridges's office - Tonya in RE to giving am lovenox prior to surgery anna at 1300. Dr. Mckeon did state to give am dose and then d/c noted. Did also speak with Pts mom and update her this am. Will cont to mx.
[2019-10-29 11:20] LABS: POC Glucose,Bedside 394 (70-110)
--- NOTE | 2019-10-29 13:01 | HMH.ORTHPN ---
Subjective Date: 10/29/19 Time: 12:30 Principal diagnosis: R foot osteomyelitis Interval history: The patient is doing well today, no complaints. No fevers or chills, though temperature has been elevated to 100 degrees 1x in past 24 hours. R foot remains stable. PN: Obj Ex Vital signs: Temp Pulse Resp BP Pulse Ox 99.0 F 91 H 18 111/54 L 90 L 10/29/19 08:00 10/29/19 08:00 10/29/19 08:00 10/29/19 08:00 10/29/19 08:00 - Constitutional no acute distress - Routine HEENT Exam Head: Present: normocephalic Eye: Present: EOMI ENT: Present: mucous membranes moist - Routine Respiratory Exam Absent: respiratory distress, wheezes - Routine Cardiovascular Exam Present: RRR - Routine Abdominal Exam Present: soft. Absent: distended - Routine Extremities Exam Comments: s/p L BKA R TMA jeremy intact, few retention sutures remain mild swelling R foot, mild melissa-wound cellulitis around central incision, no ascending erythema TMA incision with black eschar, dry and intact w/o dehiscence; approx 11 x 2.3cm small posterior heel ulcer as well, covered with black eschar no active drainage, no purulence or expressible fluid, moderately tender weakly palpable pedal pulses R foot, which is slightly cool to touch but remains pink with adequate capillary refill sensation diminished to light touch over the R foot; this is baseline R calf soft, non-tender - Routine Skin Exam Present: wounds, gangrene - Routine Neurological Exam Present: alert, oriented X3 Progress Note: A&P (1) Disorientated Status: Acute Current Visit: Yes (2) Osteomyelitis of right foot Status: Acute Current Visit: Yes (3) Arterial insufficiency of lower extremity Status: Acute Current Visit: No (4) History of left below knee amputation Status: Acute Current Visit: No (5) Coronary arteriosclerosis Status: Chronic Current Visit: No (6) Diabetes mellitus Status: Chronic Current Visit: No (7) Hemiparesis affecting left side as late effect of cerebrovascular accident Status: Chronic Current Visit: No (8) History of CVA (cerebrovascular accident) Status: Chronic Current Visit: No (9) Hyperlipidemia Status: Chronic Current Visit: No (10) Hypertensive heart disease without heart failure Status: Chronic Current Visit: No (11) Type 2 diabetes mellitus with diabetic neuropathy, with long-term current use of insulin Status: Chronic Current Visit: No (12) SIRS (systemic inflammatory response syndrome) Status: Acute Current Visit: No (13) Sepsis Status: Acute Current Visit: No Assessment and Plan for All Diagnoses:: 53yo F with RLE chronic non-healing ulcers + osteomyelitis s/p R TMA 07/2019 --> revised 08/2019 with positive intra-op bone cultures, wound necrosis, persistent pain and signs of increasing infection suspicious for sepsis. -- NWB RLE, continue local wound care with daily dressing changes -- R foot wound: betadine-moistened gauze to wounds, followed by dry 4x4s, ABD pads, Kerlix and JONO wrap -- offload R foot + L BKA stump; recommend flotation mattress -- continue antibiotic therapy; has been on ertapenem, tobramycin, vancomycin + fluconazole since admission -- plan on R BKA tomorrow, 10/30/19. I discussed the risks of the procedure with the patient, including bleeding, need for transfusion post-operatively, persistence of infection/spread from distally, surgical site infection, failure of wound healing, wound dehiscence, need for revision surgery or conversion to above knee amputation, need for prolonged IV antibiotic use, risk of phantom limb pain, possibility of prosthesis use in the future and risks of chronic wound issues from the prosthetic socket, and risk of anesthesia including heart attack, stroke and . I also discussed the risk of non-operative treatment, including need for long-term suppressive antibiotics, proximal spread of the infection necessitating
--- NOTE | 2019-10-29 15:25 | DIET.NUTRFU ---
Intakes are good- 75-100%, BG have been up yesterday and today- ~350, weight is up 7# since admit, continuing to monitor.
[2019-10-29 16:00] VITALS: BP 123/74; PULSE 98; RESP 17; TEMP 36.8; O2SAT 95
--- NOTE | 2019-10-29 16:41 | PC.NURSE ---
Paged chief librarian extension department Md Dr pappas in RE to pt's blood sugar of 489 @[phone]. Awaiting cb at this time.
[2019-10-29 17:05] LABS: POC Glucose,Bedside 489 (70-110)
[2019-10-29 19:04] VITALS: TEMP 37.4
--- NOTE | 2019-10-29 19:11 | INFXCTL.NOTE ---
report given to teri
[2019-10-29 20:00] VITALS: BP 125/62; PULSE 86; RESP 20; TEMP 37.3; O2SAT 93
--- NOTE | 2019-10-29 20:25 | PC.NURSE ---
Pt alert and oriented and able to make needs known. No confusion this shift noted. RR even and unlabored. Did give prn tylenol per mar in RE to R lower foot pain. Plan is for pt to have surgery anna. Have spoke with pts mom several times this shift and updated r/t status and plans for pt.Pt denies pain at this time. Continues on IV ABT. PICC in RUE, have flushed with out difficulty. PO temp 99.4, fan on at this time and blankets off. Cheeks are flushed. NAD, VSS. Pt did have a blood sugar at 1600 of 489. Called and spoke to Dr. Lerner employee relations specialist for Dr. Alva and he did order 15 units humalog. Noted. Have given report on pt to oncoming RN. CB is within reach, pt did receive bath this shift as well.
[2019-10-29 21:02] LABS: POC Glucose,Bedside 412 (70-110)
[2019-10-30] VITALS (30 sets, daily range): BP systolic 89–166; BP diastolic 42–87; PULSE 72–96; RESP 12–29; TEMP 36.5–43; O2SAT 91–100; BMI 29.9
--- NOTE | 2019-10-30 02:17 | PC.NURSE ---
Pt alert and oriented with no neuro deficits identified. Vital signs stable, afebrile, FSBS at 1999 - = 14 units. NPO after midnight, aware of upcoming surgery. Pt reported, My foot won't hurt me anymore after tomorrow and I can't wait to feel better. ABX infused well, pt sleeping after infusion with no objective s/s of pain or distress noted. Nothing acute to report thus far, call light w/i reach, monitoring continues.
[2019-10-30 06:18] LABS: Basophils # 0.2 K/mm3 (0-0.2); Basophils % 1.7 % (0.1-2.0); Eosinophils # 0.2 K/mm3 (0.0-0.4); Eosinophils % 1.4 % (0.1-12.0); Hematocrit 29.2 % (37.0-47.0); Hemoglobin 9.1 g/dL (12.2-16.2); Lymphocytes # 2.3 K/mm3 (0.7-4.5); Lymphocytes % 19.2 % (10-50); Mean Corpuscular HGB Conc 31.2 g/dL (31.8-35.4); Mean Corpuscular Hemoglobin 25.9 pg (27.0-31.2); Mean Corpuscular Volume 82.9 fl (81-99); Mean Platelet Volume 7.5 fl (7.4-10.4); Monocytes # 1.1 K/mm3 (0.1-1.0); Neutrophils # 8.1 K/mm3 (1.8-7.8); Neutrophils % 68.6 % (37.0-80.0); Platelet Count 450 K/mm3 (142-424); Red Blood Count 3.52 M/mm3 (4.20-5.40); Red Cell Distribution Width 20.9 % (11.5-17.5); White Blood Count 11.8 K/mm3 (4.8-10.8)
[2019-10-30 06:22] LABS: Chloride 92 mmol/L (98-107); Potassium 4.3 mmoL/L (3.5-5.1); Sodium 133 mmol/L (136-145)
[2019-10-30 06:25] LABS: Anion Gap 14.3 mEq/L (5-15); Blood Urea Nitrogen 22 mg/dl (7-17); Calcium 9.7 mg/dl (8.4-10.2); Carbon Dioxide 31 mmol/L (22.0-30.0); Creatinine Clearance Estimated 66 mL/min (50-200); Estimated Glomerular Filt Rate 52 ml/min (>60); GFR (African American) 63 ML/MIN (>60); Glucose 371 mg/dl (74-100)
[2019-10-30 06:41] LABS: POC Glucose,Bedside 362 (70-110)
--- NOTE | 2019-10-30 06:56 | PC.NURSE ---
Addendum entered by Keisha Kwan RN 10/30/19 06:59: PICC dressing changed per protocol. Original Note: Surgery consent signed, pt NPO since midnight. No changes from previous note, pt resing with call light w/i reach, monitoring continues.
--- NOTE | 2019-10-30 07:42 | CARE MANAGER ---
Addendum entered by Latonya Herbert RN 10/31/19 09:01: Anna HannaTaylor will check to see if beds available at [facility] If no beds are available the patient states the family would like her to see if [facility] has any beds. Spoke with patient's mother and made her aware of Prema's choices as far as facilities. Original Note: Spoke with patient and she requests to be discharged to [facility] if possible upon discharge. Spoke with the patient's mother who states the family really doesn't want her to go to the [facility]. The family is going to discuss with Prema their concerns about returning to [facility]. Will follow up with patient and mother as to decision. GLENDA Rush
--- NOTE | 2019-10-30 07:58 | HMH.ACPN2 ---
<Keisha Pedersen - Last Filed: 10/30/19 07:58> Internal Medicine - PN: Subj *Date: 10/30/19 *Time: 07:58 Interval history: Patient states her surgery is scheduled for about 1 PM today. She remains n.p.o. She states she is comfortable and did not sleep last night. She denies chest pain or shortness of breath. Patient did have a low-grade fever yesterday. CBC today with a white blood cell count of 11.8, hemoglobin of 9.1, hematocrit 29.2. Blood chemistries with stable renal function; blood sugars have been in the 300s covered with sliding scale insulin. Exam Vital signs and Labs for Last 24 Hours: Temp Pulse Resp BP Pulse Ox 99.7 F H 92 H 22 133/80 91 L 10/30/19 04:00 10/30/19 04:00 10/30/19 04:00 10/30/19 04:00 10/30/19 04:00 Laboratory Results - last 24 hr 10/29/19 11:10: POC Glucose 394 H* 10/29/19 14:00: Blood Type B Negative, Antibody Screen Negative, Crossmatch (AHG) See Detail 10/29/19 16:30: POC Glucose 489 H* 10/29/19 20:53: POC Glucose 412 H* 10/30/19 06:04: POC Glucose 362 H* 10/30/19 06:13: WBC 11.8 H, RBC 3.52 L, Hgb 9.1 L, Hct 29.2 L, MCV 82.9, MCH 25.9 L, MCHC 31.2 L, RDW 20.9 H, Plt Count 450 H, MPV 7.5, Neut % (Auto) 68.6, Lymph % (Auto) 19.2, [place] % (Auto) 9.0, Eos % (Auto) 1.4, Baso % (Auto) 1.7, Neut # (Auto) 8.1 H, Lymph # (Auto) 2.3, [place] # (Auto) 1.1 H, Eos # (Auto) 0.2, Baso # (Auto) 0.2 10/30/19 06:13: Sodium 133 L, Potassium 4.3, Chloride 92 L, Carbon Dioxide 31 H, Anion Gap 14.3, BUN 22 H, Creatinine 1.10 H, Estimated Creat Clear 66, Estimated GFR 52 L, Est GFR ( Amer) 63, Glucose 371 H D, Calcium 9.7 I & O for Last 24 hours: Intake & Output 10/27/19 10/28/19 10/29/19 10/30/19 11:59 11:59 11:59 11:59 Intake Total 850 / 850 1660 / 1660 460 / 460 1000 / 1000 Output Total 501 / 501 1801 / 1801 1999 Balance 349 / 349 -141 / -141 -1540 / -1540 1000 / 1000 Weight 161 lb 9 oz 156 lb 8.451 oz 153 lb 4 oz 152 lb 7 oz - Constitutional no acute distress Comments: Appears comfortable - *Routine Respiratory Exam Present: CTA bilaterally - *Routine Cardiovascular Exam Present: RRR, murmur - *Routine Abdominal Exam Present: soft, normoactive bowel sounds. Absent: tenderness - *Routine Extremities Exam Comments: No edema of the left leg. Right foot dressing with Frank clean and dry. - *Routine Neurological Exam Present: alert, oriented X3 Assessment and Plan (1) Disorientated Current visit: Yes Status: Acute Category: Medical Code(s): R41.0 - Disorientation, unspecified (2) Osteomyelitis of right foot Current visit: Yes Status: Acute Qualifiers: Osteomyelitis type: other Qualified Code(s): M86.8X7 - Other osteomyelitis, ankle and foot Category: Medical Code(s): M86.9 - Osteomyelitis, unspecified (3) Arterial insufficiency of lower extremity Current visit: No Status: Acute Category: Medical Code(s): I73.9 - Peripheral vascular disease, unspecified (4) History of left below knee amputation Current visit: No Status: Acute Category: Medical Code(s): Z89.512 - Acquired absence of left leg below knee (5) Coronary arteriosclerosis Current visit: No Status: Chronic Category: Medical Code(s): I25.10 - Atherosclerotic heart disease of [place] coronary artery without angina pectoris (6) Diabetes mellitus Current visit: No Status: Chronic Qualifiers: Diabetes mellitus type: type 2 Diabetes mellitus shelter insulin use: without shelter use Diabetes mellitus complication status: with neurologic complications Diabetes mellitus complication detail: with polyneuropathy Qualified Code(s): E11.42 - Type 2 diabetes mellitus with diabetic polyneuropathy Category: Medical Code(s): E11.9 - Type 2 diabetes mellitus without complications (7) Hemiparesis affecting left side as late effect of cerebrovascular accident Current visit: No Status: Chronic Category: Medical Code(s): I69.354 -
[2019-10-30 10:46] LABS: Tobramycin,Random 2.3 ug/ml
[2019-10-30 10:59] LABS: POC Glucose,Bedside 346 (70-110)
--- NOTE | 2019-10-30 11:53 | HMH.PHACONS ---
- Pharmacy Consult Date: 10/30/19 Time: 11:53 Referring provider: DR. CAVAZOS Reason for Consult:: TOBRAMYCIN LEVEL Allergies and ADEs:: Allergies Allergy/AdvReac Type Severity Reaction Status Date / Time azithromycin Allergy Intermediate S-DIFF. Verified 10/26/19 13:19 BREATHING daptomycin [DAPTOMYCIN] Allergy Intermediate I-RASH/ITCH Verified 10/26/19 13:19 ING levofloxacin Allergy Intermediate I-RASH Verified 10/26/19 13:19 Penicillins Allergy Intermediate I-HIVES Verified 10/26/19 13:19 Home Medications:: Home Medications Medication Instructions Recorded Confirmed Type amiloride 5 mg tablet 5 mg PO DAILY 09/22/17 10/26/19 History baclofen 10 mg tablet 10 mg PO DAILY 09/22/17 10/26/19 History clopidogrel 75 mg tablet 75 mg PO DAILY 09/22/17 10/26/19 History glimepiride 2 mg tablet 2 mg PO DAILY 09/22/17 10/26/19 History metolazone 5 mg tablet 5 mg PO DAILY 09/22/17 10/26/19 History Donepezil HCl [Aricept 5mg 5 mg PO HS 04/14/18 10/26/19 History Tablet] Potassium Chloride 60 meq PO TID 04/14/18 10/26/19 History Spironolactone [Aldactone 25mg 25 mg PO DAILY 04/14/18 10/26/19 History Tab] Metoprolol Tartrate [Lopressor 12.5 mg PO DAILY 05/09/19 10/26/19 History 25mg tablet] Loratadine [Claritin] 10 mg PO DAILY 05/10/19 10/26/19 History Cholecalciferol (Vitamin D3) 4,000 units PO DAILY 07/23/19 10/26/19 History [Vitamin D3] Insulin Lispro [HumaLOG 100 0 unit SQ ACHS 07/23/19 10/27/19 History units/mL 3mL vial (SSI)] Acetaminophen [Acetaminophen Extra 500 mg PO TID #0 08/15/19 10/27/19 History Strength] Baclofen 20 mg PO HS 08/15/19 10/26/19 History Linagliptin/Metformin HCl 1 tab PO BID 08/15/19 10/26/19 History [Jentadueto 2.5 mg-1000 mg Tab] Saccharomyces Boulardii [Florastor] 250 mg PO DAILY #0 08/15/19 10/27/19 History Warfarin Sodium 7.5 mg PO DAILY 09/11/19 10/27/19 History ertapenem 1 gram solution for 1 gm IV DAILY 09/11/19 10/27/19 History injection linezolid 600 mg tablet 600 mg PO BID 09/11/19 10/26/19 History Cyanocobalamin (Vitamin B-12) 500 mcg PO DAILY 10/10/19 10/26/19 History [Vitamin B-12] Ferrous Sulfate [Ferrous Sulfate 325 mg PO TID 10/10/19 10/26/19 History 325mg Tablet] Furosemide [Furosemide 40MG tAB] 40 mg PO DAILY 10/10/19 10/26/19 History Insulin Detemir [Levemir 60 unit SQ BID 10/10/19 10/26/19 History 100units/mL 3mL flexpen] Multivitamin 1 each PO DAILY 10/10/19 10/27/19 History Atorvastatin Calcium [Atorvastatin 40 mg PO DAILY 10/26/19 10/27/19 History 40mg Tab] Calcium Carbonate [Tums Ultra 1,177 mg PO TID 10/27/19 10/27/19 History Strength] Height: 1.52 m Weight: 69.144 kg Laboratory Results:: Laboratory Results - last 24 hr 10/29/19 14:00: Blood Type B Negative, Antibody Screen Negative, Crossmatch (AHG) See Detail 10/29/19 16:30: POC Glucose 489 H* 10/29/19 20:53: POC Glucose 412 H* 10/30/19 06:04: POC Glucose 362 H* 10/30/19 06:13: WBC 11.8 H, RBC 3.52 L, Hgb 9.1 L, Hct 29.2 L, MCV 82.9, MCH 25.9 L, MCHC 31.2 L, RDW 20.9 H, Plt Count 450 H, MPV 7.5, Neut % (Auto) 68.6, Lymph % (Auto) 19.2, [place] % (Auto) 9.0, Eos % (Auto) 1.4, Baso % (Auto) 1.7, Neut # (Auto) 8.1 H, Lymph # (Auto) 2.3, [place] # (Auto) 1.1 H, Eos # (Auto) 0.2, Baso # (Auto) 0.2 10/30/19 06:13: Sodium 133 L, Potassium 4.3, Chloride 92 L, Carbon Dioxide 31 H, Anion Gap 14.3, BUN 22 H, Creatinine 1.10 H, Estimated Creat Clear 66, Estimated GFR 52 L, Est GFR ( Amer) 63, Glucose 371 H D, Calcium 9.7 10/30/19 10:20: Random Tobramycin 2.3 10/30/19 10:51: POC Glucose 346 H* Medical History: Reports:: Arrhythmia, Atherosclerotic Heart Disease, Cancer, Carotid Stenosis, Congestive Heart Failure, Coronary Artery Disease, Cerebrovascular Accident, Deep Vein Thrombosis, Depression, Diabetes Mellitus Type 2, Gall Bladder Disease, Heart Murmur, Hyperlipidemia, Hypertension, MRSA, Myocardial Infarction, Peripheral Artery Disease, Peripheral Vascular Disease,
[2019-10-30 13:36] LABS: POC Glucose,Bedside 273 (70-110)
--- NOTE | 2019-10-30 13:43 | P.PN_ITS ---
[facility] Anesthesia Checklist - Patient Identification Patient Identification: Arm Band - Structural Data Admitted From: Inpatient Planned Operative Procedure/s: right below the knee amputation Consent for Planned Operative Procedure(s) Verified: Yes Verified Documents: Surgical Consent, History and Physical - NPO Status Verified Time NPO: 00:00 - Additional verifications Anesthesia Reactions: No Hx Blood Transfusions: No Blood Transfusion Reaction: No - Airway Assessment C-Spine Mobility Assessed: Yes (mp2) TMJ Mobility Assessed: Yes Dentition: Poor Dentition - Neurological Assessment Level of Consciousness: Awake, Alert - Anesthesia Plan Anesthesia Risk discussed: Yes Anesthesia Plan: Verified ASA Class: III Anesthesia Type: General [facility] History I have reviewed the patient's past medical history: Yes Medical History: Reports:: Arrhythmia, Atherosclerotic Heart Disease, Cancer, Carotid Stenosis, Congestive Heart Failure, Coronary Artery Disease, Cerebrovascular Accident, Deep Vein Thrombosis, Depression, Diabetes Mellitus Type 2, Gall Bladder Disease, Heart Murmur, Hyperlipidemia, Hypertension, MRSA, Myocardial Infarction, Peripheral Artery Disease, Peripheral Vascular Disease, Renal Disease, Renal Insufficiency, Transient Ischemic Attacks (TIA), Urinary Tract Infection Denies:: Asthma, Chronic Obstructive Pulmonary Disease (COPD), Diabetes Mellitus Type 1, Internal Pacemaker, Lung Disease, Seizures *Have you ever received a pneumonia vaccine?: Yes *Have you received a flu vaccine this season?: Yes Other Medical History: Reports: Anemia, Arthritis, Chemotherapy, Sinus Problems, Other. Denies: Blood Transfusion Reaction Anesthesia experience/problems:: nac Laterality Cases: Left: Lumpectomy, Right: Carpal Tunnel Release, Mastectomy, Other Other Surgeries: Yes: Appendectomy, CABG (with 4 vessels repaired ), Cancer Surgery, Cardiac Catheterization, Cardiac Surgery, Cholecystectomy, Colonoscopy, Coronary Stent (legs ), , Hernia Repair, Open Heart Surgery, Tubal Ligation, Other (amputee left leg and right toes, stent to right leg). No: Pacemaker Amputation: Yes (LEFT BKA, RIGHT TOES AND PARITAL RIGHT FOOT AMPUTATIONS) Fractures: No - *Social History Educational Level: Attended College Smoking Status: Never smoker # Packs/Day (cigarettes): 0 #Yrs smoked (if former smoker): 0 Alcohol Intake: never Alcohol Intake Frequency:: other Substance Use Type: denies use *Occupational Status:: disabled Housing: detention Household Members: caregiver *Travel in the last 8 weeks: None - Psychiatric History Pschychiatric History:: Reports:: Depression Family Hx:: Asthma, Cancer, Coronary Artery Disease, Diabetes, Heart Attack, Hyperlipidemia, Hypertension, Stroke
--- NOTE | 2019-10-30 14:00 | PC.NURSE ---
Pt to preop at 1320.
--- NOTE | 2019-10-30 16:58 | HMH.ANESI ---
[facility] Anesthesia Record Part I Intake, IV Amount: 1,200 Estimated blood loss (mL): 0 Urine output (mL): 0 Blood Products used (#): none Blood Pressure: 103/60 SaO2: 97 Pulse Rate: 73 Respiratory Rate: 12 Temperature: 98.7 F Patient is:: Drowsy, Mask O2, Stable Stable to PACU at:: 16:48
--- NOTE | 2019-10-30 17:05 | XR_ITS ---
PROCEDURE: XR TIBIA FIBULA RT 2V CLINICAL INDICATION: s/p right BKA Follow-up below the knee amputation COMPARISON: XR FOOT WT BEARING RT 3V from 10/16/2019 FINDINGS: Status post below the knee amputation. The amputation site at the proximal tibia is sharp. There is some jagged edges to the amputation at the proximal fibula with some surrounding bony fragments laterally. There is a postsurgical drain and dressing in place. Vascular stent is present in the popliteal artery region IMPRESSION: Status post below the knee amputation as described above Dictated by: Almas Flynn MD 10/30/2019 17:29 Electronically signed by Almas Flynn MD in [place] 10/30/2019 17:29
--- NOTE | 2019-10-30 17:40 | HMH.OPNOTE ---
Date of procedure: 10/30/19 Pre-op Diagnosis:: 1) R foot chronic non-healing ulcers with osteomyelitis 2) gangrene s/p R TMA Post-op Diagnosis:: 1) R foot chronic non-healing ulcers with osteomyelitis 2) gangrene s/p R TMA Procedure performed:: R below knee amputation Surgeon:: Leanna Clark MD Collar Runner(s):: MIKAELA Villalba CANS VACUUM TESTER:: Sabino Humphreys Anesthesia: GETA Estimated blood loss (mL): 100 Clinical Note:: 53-year-old female admitted 10/26/19 with suspicion of sepsis emanating from right foot osteomyelitis. She was seen in my office earlier that day for evaluation for below-knee amputation. During that visit she reported feeling very ill and after evaluation by Dr. Alva was admitted to the hospital and placed on IV antibiotics. She was seen to have an elevated WBC, ESR, CRP and lactate on admission, with elevated temps but no fevers. The patient is new to myself, having been previously treated by Dr. Calloway. The patient has long struggled with right lower extremity ischemia and infection, and she states she has had 7 surgeries on this leg. She has been evaluated by 's medical service and vascular surgery, who felt they could not revascularize the lower extremity with either stenting or bypass grafting. They recommended below-knee amputation last fall. She has been treated by both Dr. Calloway and Dr. Padilla here at [facility]. Dr. Padilla performed right lower extremity angiogram in July 2019 which showed little to no flow distal to the superficial femoral artery. He did not feel there was anything distally to this that could be revascularized and made the same recommendation at the vascular surgeon at . Dr. Calloway has performed several debridements of this foot, followed by transmetatarsal amputation in July 2019. The TMA required revision in August 2019, at which time Lisfranc disarticulation was additionally performed and antibiotics beads were placed. Intraoperative cultures at that time grew multiple organisms and she has been on IV Invanz via PICC line, as well as oral Zyvox. An in-office culture grew yeast, so fluconazole was started as well. Despite local wound care the R TMA has developed black eschar anteriorly at the incision line and posteriorly where an ulcer has formed. She is reporting increasing pain, which she describes as a sensation like a dog gnawing on her foot. Multiple medical comorbidities are present, including DM, h/o DVT, h/o MRSA, severe PAD/PVD, chronic anemia. She was evaluated by Dr. Alva after admission and deemed medically appropriate for surgery today, 10/30/19. I discussed the risks of below knee amputation with the patient, including bleeding, need for transfusion post-operatively, persistence of infection/spread from distally, surgical site infection, failure of wound healing, wound dehiscence, need for revision surgery or conversion to above knee amputation, need for prolonged IV antibiotic use, risk of phantom limb pain, possibility of prosthesis use in the future and risks of chronic wound issues from the prosthetic socket, and risk of anesthesia including heart attack, stroke and . I also discussed the risk of non-operative treatment, including need for long-term suppressive antibiotics, proximal spread of the infection necessitating above knee amputation, sepsis, and . The patient vocalized understanding and has decided to proceed with below knee amputation now; informed consent was obtained. Operative findings:: R TMA with dry gangrene; black eschar around incision that is intact w/o dehiscence, 11 x 2.3cm posterior R heel ulcer, ~3 x 3 cm; dry and stable mild erythema around foot/TMA site; no ascending erythema no clinical signs of infection proximally at BKA stump; no pus, no necrotic tissue tourniquet was not inflated; adequate bleeding seen, though was not robust Operative note:: The patient was identified in preoperative ho
--- NOTE | 2019-10-30 17:45 | HMH.ORTHPN ---
Subjective Date: 10/30/19 Time: 18:00 Principal diagnosis: R foot osteomyelitis Interval history: The patient underwent R BKA this afternoon without complication. She is recovering in PACU, vitals are stable. Glucose was 312; 8 units regular insulin given. Due to pre-op anemia and EBL 100, H/H being drawn in PACU. PN: Obj Ex Vital signs: Temp Pulse Resp BP Pulse Ox 98.7 F 73 12 103/60 L 92 L 10/30/19 16:59 10/30/19 16:59 10/30/19 16:59 10/30/19 16:59 10/30/19 08:00 - Constitutional no acute distress - Routine Extremities Exam Comments: R BKA splint intact, RICO drain to suction with scant sanguinous output Progress Note: A&P (1) Disorientated Status: Acute Current Visit: Yes (2) Osteomyelitis of right foot Status: Acute Current Visit: Yes (3) Arterial insufficiency of lower extremity Status: Acute Current Visit: No (4) History of left below knee amputation Status: Acute Current Visit: No (5) Coronary arteriosclerosis Status: Chronic Current Visit: No (6) Diabetes mellitus Status: Chronic Current Visit: No (7) Hemiparesis affecting left side as late effect of cerebrovascular accident Status: Chronic Current Visit: No (8) History of CVA (cerebrovascular accident) Status: Chronic Current Visit: No (9) Hyperlipidemia Status: Chronic Current Visit: No (10) Hypertensive heart disease without heart failure Status: Chronic Current Visit: No (11) Type 2 diabetes mellitus with diabetic neuropathy, with long-term current use of insulin Status: Chronic Current Visit: No (12) SIRS (systemic inflammatory response syndrome) Status: Acute Current Visit: No (13) Sepsis Status: Acute Current Visit: No Assessment and Plan for All Diagnoses:: 53yo F with RLE chronic non-healing ulcers + osteomyelitis s/p R TMA 07/2019 --> revised 08/2019 with positive intra-op bone cultures, wound necrosis, persistent pain and signs of increasing infection suspicious for sepsis. POD 0 s/p R BKA -- NWB RLE, continue splint and elevate RLE on pillows at all times -- empty drain and record output each shift -- offload L BKA stump + turn patient Q2 hours -- PT to eval; may be OOB with assist, NWB RLE -- pain medication ordered -- lovenox 1mg/kg Q12hr to be restarted, as well as baseline warfarin 7.5mg -- continue IV antibiotics for at least 24 hours; intra-op tissue culture + swabs from proximal BKA stump sent, as well as R amputated limb for pathology -- care management consult for dispo planning/DME
[2019-10-30 18:03] LABS: POC Glucose,Bedside 312 (70-110)
--- NOTE | 2019-10-30 18:07 | PC.NURSE ---
Addendum entered by Ray Sorensen RN 10/30/19 18:08: Clarification 1806* Original Note: Paged investigations chief pharm in [place] abt times on aug, where pt has been in surgery. Awaiting cb at this time. 1706.
[2019-10-30 19:00] LABS: Hematocrit 25.4 % (37.0-47.0)
--- NOTE | 2019-10-30 19:51 | SUR.PHASEI ---
FSBS drawn at 1731 with result of 312, order received from Dr. Alvarez and Dr. Mosley for 8 units regular insulin while patient still in PACU, 8 units regular insulin given sub Q 2 inches west of umbilicus at 1739
--- NOTE | 2019-10-30 20:00 | PC.NURSE ---
Pt returned to floor at 1814 from [facility]. Has been stable since then. Pt was drowsy when returned to floor and now awake. Pt did c/o of pain 09/27, in R leg, scheduled med given per aug. VSS, pt continues on 3 L NC with sats from high 80's to low 90's. Did receive report of critical lab value 8.0 hgb and 25.4 hct at 191, called and reported this to Dr. Harmon conversion developer for Dr. Alva and he did state to infuse one unit of blood, that is on hold and check labs as ordered in am. Have made Carolyn Meza RN aware of this during shift change. CB in reach, RICO drain in place, did strip x one since pt got to floor, very scant drainage at this time.
--- NOTE | 2019-10-30 20:05 | PC.NURSE ---
Also, spoke with Davide explosion welder pharmacist in [place] to fluconazole IV ABT and invanz IV abt and he stated they were fine to give late since pt was off floor when due.
[2019-10-30 23:52] LABS: POC Glucose,Bedside 420 (70-110)
[2019-10-31] VITALS (10 sets, daily range): BP systolic 118–179; BP diastolic 51–76; PULSE 70–81; RESP 14–20; TEMP 36.7–37.1; O2SAT 90–96; BMI 29.9
--- NOTE | 2019-10-31 06:10 | PC.NURSE ---
A&OX3. PERRLA, CONSERVATION PLANNER STRONG IN RIGHT HAND, LEFT HAND/LUE IS CONTRACTED. LUNGS NOTED CLEAR T/O AUSCULTATION WITH DIMINISHED BILATERAL BASES. PT WAS ON 3LNC AT BEGINNING OF SHIFT, WEANED TO RA, TOLERATED RA WELL. INCENTIVE SPIROMETER USED Q1HWA, DEMONSTRATED APPROPRIATE/ADEQUATE USE OF INCENTIVE SPIROMETER, REACHED 1250ML WITH USE. PULSES +2, CAP REFILL <3SEC. ABDOMEN NOTED AT BASELINE FOR PT, ACTIVE BOWEL SOUNDS IN ALL QUADS, SOFT AND NONTENDER PER PALPATION. DRESSING ON RLE NOTED CDI, RICO DRAIN TO RLE NOTED WITH MINIMAL BLOODY DRAINAGE IN BULB, RICO DRAIN STRIPPED Q4H. RLE ELEVATED ON A PILLOW THIS SHIFT. PT IS INCONTINENT, PURWICK IN PLACE ALONG WITH CHUX/ATTENDS. YELLOW, CLEAR URINE NOTED PER SUCTION CANISTER. PT TURNED AND REPOSITIONED Q2H THIS SHIFT. ORAL CARE PROVIDED. TOLERATED BLOOD TRANSFUSION WELL. RUE LIMB ALERT MAINTAINED THIS SHIFT. VSS. WILL CONTINUE TO MONITOR.
[2019-10-31 07:08] LABS: POC Glucose,Bedside 346 (70-110)
[2019-10-31 07:08] LABS: Basophils # 0.1 K/mm3 (0-0.2); Basophils % 0.7 % (0.1-2.0); Eosinophils # 0.1 K/mm3 (0.0-0.4); Mean Corpuscular Volume 84.9 fl (81-99)
--- NOTE | 2019-10-31 07:08 | P.PN_ITS ---
[facility] Anesthesia Record Part II Discharge Time: 17:00 Destination: Medical Surgical Department PACU nurse assessment reviewed?: Yes Patient Condition:: Good Anesthesia Complications:: None Swallowing reflex intact?: Yes Cyanosis?: No Blood Pressure: 126/74 Pulse Rate: 78 Temperature: 98.7 F Mental Status: Alert & Oriented Pain level:: 0 Nausea and/or vomitting:: None Intake, IV Amount: 20
[2019-10-31 07:09] LABS: Chloride 95 mmol/L (98-107); Potassium 4.3 mmoL/L (3.5-5.1); Sodium 130 mmol/L (136-145)
[2019-10-31 07:12] LABS: Anion Gap 9.3 mEq/L (5-15); Blood Urea Nitrogen 26 mg/dl (7-17); Carbon Dioxide 30 mmol/L (22.0-30.0); Creatinine Clearance Estimated 56 mL/min (50-200); Estimated Glomerular Filt Rate 43 ml/min (>60); GFR (African American) 52 ML/MIN (>60); Glucose 353 mg/dl (74-100)
[2019-10-31 07:14] LABS: Eosinophils % 1.4 % (0.1-12.0); Mean Corpuscular HGB Conc 31.7 g/dL (31.8-35.4); Mean Corpuscular Hemoglobin 26.9 pg (27.0-31.2); Mean Platelet Volume 7.8 fl (7.4-10.4); Monocytes # 0.8 K/mm3 (0.1-1.0); Monocytes % 7.8 % (1.7-9.3); Neutrophils # 5.6 K/mm3 (1.8-7.8); Platelet Count 438 K/mm3 (142-424); White Blood Count 9.5 K/mm3 (4.8-10.8)
[2019-10-31 07:17] LABS: Hemoglobin 8.9 g/dL (12.2-16.2)
--- NOTE | 2019-10-31 08:15 | HMH.ACPN2 ---
<Irina Gil - Last Filed: 10/31/19 08:15> Internal Medicine - PN: Subj *Date: 10/31/19 *Time: 08:15 Interval history: Patient states she does have pain in her right leg. She states she rested better last night and is trying to eat some breakfast this morning. She denies any other pain. Exam Vital signs and Labs for Last 24 Hours: Temp Pulse Resp BP Pulse Ox 98.1 F 81 18 144/51 H 95 10/31/19 08:00 10/31/19 08:00 10/31/19 08:00 10/31/19 08:00 10/31/19 08:00 Laboratory Results - last 24 hr 10/29/19 14:00: Blood Type B Negative, Antibody Screen Negative, Crossmatch (AHG) See Detail 10/30/19 10:20: Random Tobramycin 2.3 10/30/19 10:51: POC Glucose 346 H* 10/30/19 13:29: POC Glucose 273 H 10/30/19 17:28: POC Glucose 312 H* 10/30/19 17:49: Hgb 8.0 L, Hct 25.4 L 10/30/19 20:21: POC Glucose 420 H* 10/31/19 06:45: WBC 9.5, RBC 3.30 L, Hgb 8.9 L D, Hct 28.0 L, MCV 84.9, MCH 26.9 L, MCHC 31.7 L, RDW 20.0 H, Plt Count 438 H, MPV 7.8, Neut % (Auto) 59.0, Lymph % (Auto) 31.0, [place] % (Auto) 7.8, Eos % (Auto) 1.4, Baso % (Auto) 0.7, Neut # (Auto) 5.6, Lymph # (Auto) 3.0, [place] # (Auto) 0.8, Eos # (Auto) 0.1, Baso # (Auto) 0.1 10/31/19 06:45: Sodium 130 L, Potassium 4.3, Chloride 95 L, Carbon Dioxide 30, Anion Gap 9.3, BUN 26 H, Creatinine 1.30 H, Estimated Creat Clear 56, Estimated GFR 43 L, Est GFR ( Amer) 52 L, Glucose 353 H, Calcium 9.0 10/31/19 06:46: POC Glucose 346 H* I & O for Last 24 hours: Intake & Output 10/28/19 10/29/19 10/30/19 10/31/19 11:59 11:59 11:59 11:59 Intake Total 1660 / 1660 460 / 460 1100 / 1100 1897 / 1897 Output Total 1801 / 1801 1999 / 1999 310 / 310 Balance -141 / -141 -1540 / -1540 1100 / 1100 1587 / 1587 Weight 156 lb 8.451 oz 153 lb 4 oz 152 lb 7 oz 152 lb 6.983 oz Microbiology Reports for the Last 24 Hours: Microbiology 10/30/19 15:36 Leg,Right - Deep Gram Stain - Final - Constitutional no acute distress - *Routine Respiratory Exam Present: CTA bilaterally - *Routine Cardiovascular Exam Present: RRR, murmur - *Routine Abdominal Exam Present: soft, normoactive bowel sounds. Absent: tenderness - *Routine Extremities Exam Comments: right amputation with dressing in place, minimal drainage in the drain - *Routine Skin Exam Present: warm. Absent: rash - *Routine Neurological Exam Present: alert, oriented X3 Assessment and Plan (1) Disorientated Current visit: Yes Status: Acute Category: Medical Code(s): R41.0 - Disorientation, unspecified (2) Osteomyelitis of right foot Current visit: Yes Status: Acute Qualifiers: Osteomyelitis type: other Qualified Code(s): M86.8X7 - Other osteomyelitis, ankle and foot Category: Medical Code(s): M86.9 - Osteomyelitis, unspecified (3) Arterial insufficiency of lower extremity Current visit: No Status: Acute Category: Medical Code(s): I73.9 - Peripheral vascular disease, unspecified (4) History of left below knee amputation Current visit: No Status: Acute Category: Medical Code(s): Z89.512 - Acquired absence of left leg below knee (5) Coronary arteriosclerosis Current visit: No Status: Chronic Category: Medical Code(s): I25.10 - Atherosclerotic heart disease of [place] coronary artery without angina pectoris (6) Diabetes mellitus Current visit: No Status: Chronic Qualifiers: Diabetes mellitus type: type 2 Diabetes mellitus long-term insulin use: without long-term use Diabetes mellitus complication status: with neurologic complications Diabetes mellitus complication detail: with polyneuropathy Qualified Code(s): E11.42 - Type 2 diabetes mellitus with diabetic polyneuropathy Category: Medical Code(s): E11.9 - Type 2 diabetes mellitus without complications (7) Hemiparesis affecting left side as late effect of cerebrovascular accident Current visit: No Status: Chronic Category: Medical Code(s): I69.354 - Hemiplegia and hemipar
--- NOTE | 2019-10-31 08:27 | PC.NURSE ---
2200 AND 2300 POST OP VITALS NOT CHART R/T BLOOD VITALS BEING OBTAINED.
--- NOTE | 2019-10-31 09:15 | SW/DCPLANNER ---
Addendum entered by Tash Taylor 11/01/19 14:14: THIS NOTE BELOW IS ON THE WRONG PATIENT... Addendum entered by Tash Taylor 11/01/19 13:46: A BED HAS BEEN OBTAINED AT [facility] FOR THIS PATIENT: I HAVE BEEN ON THE PHONE WITH CORAL, SISTER AND JESSENIA NIECE AND EXPRESSED HOW IMPORTANT IT IS TO GET HER THERE SINCE THEY DO NOT WANT TO BE RESPONSIBLE FOR HER AND NOT ABLE TO CARE FOR HER ANY LONGER.. I HAVE HAD MULTIPLE CONVERSATIONS WITH CHELSEY YA AND SHE IS IN AGREEMENT WITH PLAN... INFORMATION WAS SENT TO BRINDA TO SEND INTO [employer] AND IF DENIED SHE WILL GO THERE PRIVATE PAY... INSURANCE REQUIRES THIS TO BE SENT IN EVEN THOUGH I DO NOT FEEL SHE IS SKILLED.... Addendum entered by Tash Taylor 10/31/19 10:17: RECEIVED A CALL FROM RAPHAEL AT [facility] AND THEY ARE ACCEPTING HER BACK SINCE THEY DIDN'T PAY BEDHOLD... I TOLD HER I WOULD KEEP THEM POSTED WHEN SHE WILL BE READY.... Original Note: PATIENT ADMITTED TO [facility] AND WAS A PATIENT AT [facility] SKILLED UNDER HER MCR BENEFIT AND DID NOT DO A BED HOLD... PATIENT STATED SHE WANTS TO GO BACK TO [facility] BUT MOTHER WANTS HER TO GO SOMEWHERE ELSE... I HAVE MADE CONTACT WITH [facility] AND THEY ARE GOING TO CALL ME BACK TO WHETHER THEY HAVE A BED...
--- NOTE | 2019-10-31 09:33 | HMH.PTEV ---
Physical Therapy Evaluation Rehab PT IP Evaluation Start: 10/30/19 17:39 Freq: ONCE Status: Active Protocol: Document 10/31/19 09:26 ASHLEY (Rec: 10/31/19 09:32 ASHLEY [id number]) Subjective/History History History This is the initial IP PT evaluation for Prema Nieto. Pt is a 53 y/o female admitted to 2nd floor s/p R BKA. Pt had a TMA several weeks ago w/ osteomyelitis complications. Pt needed BKA to limit infxn spreading proximally. 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 Subjective Subjective Pt reports she is not doing as well as yesterday Rehab PT IP Eval Objective Appearance Patient Behavior Appropriate,Passive,Sedated, Fatigued Patient Orientation Person,Place,Time Difficulty following instructions none Speech Pattern Slurred Ambulation Patient Able to Ambulate No Balance Ability to Arise Unable Sitting Balance Leans or slides in chair Dynamic Sitting Balance Ability Zero Dynamic Standing Balance Ability Zero Transfers Bed Transfer Ability Total/Dependent (100%) Chair Transfer Ability Total/Dependent (100%) Rehab PT IP prob,goals,plan Problems Date of Evaluation: 10/31/19 PT IP Problems Bed Mobility,Transfers,Balance Rehab Potential Rehab Potential Poor Plan PT Intervention Plan Bed Mobility,Balance PT Plan Frequency BID Duration LOS Discharge Goals Bed Transfer Ability Total/Dependent (100%) Discharge Plan PT Discharge Plan Pt to need LTC placement in SNF for rehab to allow gain in as much function and independence as possible. Pt will most likely need placement for rest of life due to consistent need of supervision and assistance in ADL's G -code Required No Eval Complexity Eval Charge Codes 37207 - Moderate Complexity PHYSICIAN CERTIFICATION:
--- NOTE | 2019-10-31 09:35 | HMH.ACPN ---
Internal Medicine - PN: Subj *Date: 10/31/19 *Time: 09:36 Exam Vital signs and Labs for Last 24 Hours: Temp Pulse Resp BP Pulse Ox 98.1 F 81 18 144/51 H 95 10/31/19 08:00 10/31/19 09:06 10/31/19 09:06 10/31/19 08:00 10/31/19 09:06 Laboratory Results - last 24 hr 10/29/19 14:00: Blood Type B Negative, Antibody Screen Negative, Crossmatch (AHG) See Detail 10/30/19 10:20: Random Tobramycin 2.3 10/30/19 10:51: POC Glucose 346 H* 10/30/19 13:29: POC Glucose 273 H 10/30/19 17:28: POC Glucose 312 H* 10/30/19 17:49: Hgb 8.0 L, Hct 25.4 L 10/30/19 20:21: POC Glucose 420 H* 10/31/19 06:45: WBC 9.5, RBC 3.30 L, Hgb 8.9 L D, Hct 28.0 L, MCV 84.9, MCH 26.9 L, MCHC 31.7 L, RDW 20.0 H, Plt Count 438 H, MPV 7.8, Neut % (Auto) 59.0, Lymph % (Auto) 31.0, [place] % (Auto) 7.8, Eos % (Auto) 1.4, Baso % (Auto) 0.7, Neut # (Auto) 5.6, Lymph # (Auto) 3.0, [place] # (Auto) 0.8, Eos # (Auto) 0.1, Baso # (Auto) 0.1 10/31/19 06:45: Sodium 130 L, Potassium 4.3, Chloride 95 L, Carbon Dioxide 30, Anion Gap 9.3, BUN 26 H, Creatinine 1.30 H, Estimated Creat Clear 56, Estimated GFR 43 L, Est GFR ( Amer) 52 L, Glucose 353 H, Calcium 9.0 10/31/19 06:46: POC Glucose 346 H* I & O for Last 24 hours: Intake & Output 10/28/19 10/29/19 10/30/19 10/31/19 23:59 23:59 23:59 23:59 Intake Total 940 / 940 1340 / 1340 1550 / 1550 707 / 707 Output Total 1800 / 1800 1300 / 1300 310 / 310 Balance -860 / -860 40 / 40 1550 / 1550 397 / 397 Weight 71 kg 69.513 kg 69.144 kg 69.144 kg Microbiology Reports for the Last 24 Hours: Microbiology 10/30/19 15:36 Leg,Right - Deep Gram Stain - Final Assessment and Plan (1) Osteomyelitis of right foot Current visit: Yes Status: Acute Qualifiers: Osteomyelitis type: other Qualified Code(s): M86.8X7 - Other osteomyelitis, ankle and foot Category: Medical Code(s): M86.9 - Osteomyelitis, unspecified (2) Arterial insufficiency of lower extremity Current visit: No Status: Acute Category: Medical Code(s): I73.9 - Peripheral vascular disease, unspecified (3) History of left below knee amputation Current visit: No Status: Acute Category: Medical Code(s): Z89.512 - Acquired absence of left leg below knee (4) Coronary arteriosclerosis Current visit: No Status: Chronic Category: Medical Code(s): I25.10 - Atherosclerotic heart disease of [place] coronary artery without angina pectoris (5) Diabetes mellitus Current visit: No Status: Chronic Qualifiers: Diabetes mellitus type: type 2 Diabetes mellitus custodial insulin use: without rn long term care use Diabetes mellitus complication status: with neurologic complications Diabetes mellitus complication detail: with polyneuropathy Qualified Code(s): E11.42 - Type 2 diabetes mellitus with diabetic polyneuropathy Category: Medical Code(s): E11.9 - Type 2 diabetes mellitus without complications (6) Hemiparesis affecting left side as late effect of cerebrovascular accident Current visit: No Status: Chronic Category: Medical Code(s): I69.354 - Hemiplegia and hemiparesis following cerebral infarction affecting left non-dominant side (7) History of CVA (cerebrovascular accident) Current visit: No Status: Chronic Category: Medical Code(s): Z86.73 - Personal history of transient ischemic attack (TIA), and cerebral infarction without residual deficits (8) Hyperlipidemia Current visit: No Status: Chronic Qualifiers: Hyperlipidemia type: unspecified Qualified Code(s): E78.5 - Hyperlipidemia, unspecified Category: Medical Code(s): E78.5 - Hyperlipidemia, unspecified (9) Hypertensive heart disease without heart failure Current visit: No Status: Chronic Category: Medical Code(s): I11.9 - Hypertensive heart disease without heart failure (10) Type 2 diabetes mellitus with diabetic neuropathy, with long-term current use of insulin Current visit: No Status: Chronic Category:
--- NOTE | 2019-10-31 10:47 | HMH.ORTHPN ---
Subjective Date: 10/31/19 Time: 10:00 Principal diagnosis: R foot osteomyelitis Interval history: The patient is doing well this morning, though she reports pain in the R leg. Percocet schedule every 6 hours, not relieving her pain. RICO drain with little drainage, only 10cc overnight. H/H post-op was within acceptable limits and transfusion was not necessary. PN: Obj Ex Vital signs: Temp Pulse Resp BP Pulse Ox 98.1 F 81 18 144/51 H 95 10/31/19 08:00 10/31/19 09:06 10/31/19 09:06 10/31/19 08:00 10/31/19 09:06 - Constitutional no acute distress - Routine HEENT Exam Head: Present: normocephalic Eye: Present: EOMI ENT: Present: mucous membranes moist - Routine Respiratory Exam Absent: respiratory distress, wheezes - Routine Cardiovascular Exam Present: RRR - Routine Abdominal Exam Present: soft, hernia. Absent: distended - Routine Extremities Exam Comments: s/p L BKA, well healed R BKA splint intact, no strikethrough on dressings RICO drain in place, scant bloody drainage in bulb - Routine Skin Exam Present: warm - Routine Neurological Exam Present: alert, oriented X3, moving all extremities, normal tone, hearing grossly intact. Absent: altered mental status Progress Note: A&P (1) Osteomyelitis of right foot Status: Acute Current Visit: Yes (2) Arterial insufficiency of lower extremity Status: Acute Current Visit: No (3) History of left below knee amputation Status: Acute Current Visit: No (4) Coronary arteriosclerosis Status: Chronic Current Visit: No (5) Diabetes mellitus Status: Chronic Current Visit: No (6) Hemiparesis affecting left side as late effect of cerebrovascular accident Status: Chronic Current Visit: No (7) History of CVA (cerebrovascular accident) Status: Chronic Current Visit: No (8) Hyperlipidemia Status: Chronic Current Visit: No (9) Hypertensive heart disease without heart failure Status: Chronic Current Visit: No (10) Type 2 diabetes mellitus with diabetic neuropathy, with long-term current use of insulin Status: Chronic Current Visit: No (11) SIRS (systemic inflammatory response syndrome) Status: Acute Current Visit: No (12) Sepsis Status: Acute Current Visit: No (13) Disorientated Status: Acute Current Visit: Yes Assessment and Plan for All Diagnoses:: 53yo F with RLE chronic non-healing ulcers + osteomyelitis s/p R TMA 07/2019 --> revised 08/2019 with positive intra-op bone cultures, wound necrosis, persistent pain and signs of increasing infection suspicious for sepsis. POD 1 s/p R BKA -- NWB RLE, continue splint and elevate RLE on pillows at all times -- empty drain and record output each shift -- offload L BKA stump + turn patient Q2 hours -- PT to eval; may be OOB with assist, NWB RLE -- pain medication ordered --> will increase dosage and frequency to improve pain control -- lovenox 1mg/kg Q12hr to be restarted, as well as baseline warfarin 7.5mg -- continue IV antibiotics for at least 24 hours; intra-op tissue culture + swabs from proximal BKA stump sent, as well as R amputated limb for pathology -- care management consult for dispo planning/DME
[2019-10-31 11:04] LABS: POC Glucose,Bedside 433 (70-110)
[2019-10-31 16:23] LABS: POC Glucose,Bedside 368 (70-110)
--- NOTE | 2019-10-31 18:09 | PC.NURSE ---
Pt has been pleasant and cooperative this shift. A&O X4. Pt has complained of pain X2 this shift and medicated with Dilaudid and Percocet per MAR. RT BKA surgical dressing is c/d/i. RICO drain emptied at this time with 10 ml of red drainage noted. FSBS results have been 433 and 368, both of which required insulin coverage. VSS. Call light within reach. Will continue to monitor.
--- NOTE | 2019-10-31 19:11 | PC.NURSE ---
report given to kelli
[2019-10-31 19:55] LABS: Vancomycin,Trough 20.7 ug/mL (5.0-10.0)
--- NOTE | 2019-10-31 19:56 | PC.NURSE ---
spoke with maura from pharm. he gave this rn the okay to admin the current scheduled dose of vanc for this shift.
[2019-10-31 22:02] LABS: POC Glucose,Bedside 360 (70-110)
--- NOTE | 2019-11-01 03:30 | PC.NURSE ---
A&O X4. PT RESTED WELL T/O SHIFT WITH EYES CLOSED. BILATERAL LUNGS NOTED CLEAR T/O UPON AUSCULTATION. TOLERATED RA WELL WITH NO COMPLAINTS. Q2H TURN. NO EDEMA NOTED UPON INITIAL ASSESSMENT. RLE REMAINS ELEVATED ON PILLOW T/O SHIFT. LLE REMAINS FLOATING WITH PILLOW. RICO DRAIN REMAINS INTACT, MINIMAL DRAINAGE AT 5 ML T/O SHIFT. PT C/O PAIN, AT TIMES RATING SEVERE 10/10 PAIN. ADMINISTERED NORCO X2 THUS FAR THIS SHIFT. PT STATES ADEQUATE PAIN RELIEF FROM NORCO. PURWICK REMAINS IN PLACE WITH BRIEF FOR INCONTINENCE. URINE NOTED CLEAR AND BRIGHT YELLOW IN COLOR. VSS. FS GLU REMAIN ELEVATED, SEE MAR. REFUSED SNACK AT HS. CALL LIGHT WITHIN REACH. REMAINS SAFE. WILL CONTINUE TO MONITOR.
[2019-11-01 04:00] VITALS: BP 133/72; PULSE 77; RESP 18; TEMP 37.3; O2SAT 94
[2019-11-01 05:00] VITALS: BMI 30.5
[2019-11-01 05:22] LABS: POC Glucose,Bedside 254 (70-110)
[2019-11-01 05:59] LABS: Basophils # 0.2 K/mm3 (0-0.2); Basophils % 1.5 % (0.1-2.0); Eosinophils # 0.3 K/mm3 (0.0-0.4); Eosinophils % 2.6 % (0.1-12.0); Hematocrit 27.8 % (37.0-47.0); Hemoglobin 8.8 g/dL (12.2-16.2); Lymphocytes # 2.5 K/mm3 (0.7-4.5); Lymphocytes % 21.6 % (10-50); Mean Corpuscular HGB Conc 31.7 g/dL (31.8-35.4); Mean Corpuscular Hemoglobin 26.6 pg (27.0-31.2); Mean Platelet Volume 8.1 fl (7.4-10.4); Neutrophils # 7.5 K/mm3 (1.8-7.8); Neutrophils % 65.3 % (37.0-80.0); Platelet Count 393 K/mm3 (142-424); Red Blood Count 3.31 M/mm3 (4.20-5.40); White Blood Count 11.4 K/mm3 (4.8-10.8)
[2019-11-01 06:05] LABS: INR 1.05 (0.9-1.1); Prothrombin Time 10.9 seconds (9.4-11.8)
[2019-11-01 06:52] LABS: Chloride 96 mmol/L (98-107); Sodium 134 mmol/L (136-145)
[2019-11-01 06:55] LABS: Blood Urea Nitrogen 19 mg/dl (7-17); Calcium 9.3 mg/dl (8.4-10.2); Carbon Dioxide 31 mmol/L (22.0-30.0); Creatinine Clearance Estimated 57 mL/min (50-200); Estimated Glomerular Filt Rate 43 ml/min (>60); GFR (African American) 52 ML/MIN (>60); Glucose 246 mg/dl (74-100)
[2019-11-01 07:37] VITALS: BP 161/78; PULSE 86; RESP 18; TEMP 36.6; O2SAT 100
--- NOTE | 2019-11-01 08:36 | HMH.ACPN2 ---
<Irina Gil - Last Filed: 11/01/19 08:36> Internal Medicine - PN: Subj *Date: 11/01/19 *Time: 08:36 Interval history: Patient states she is having some right leg pain today. She did sleep well last night and ate more breakfast this morning. Nursing states her pain medication makes her very lethargic therefore they are to try to give her 1 pill instead of 2 and see if this helps. Exam Vital signs and Labs for Last 24 Hours: Temp Pulse Resp BP Pulse Ox 97.9 F 86 18 161/78 H 100 11/01/19 07:37 11/01/19 07:37 11/01/19 07:37 11/01/19 07:37 11/01/19 07:37 Laboratory Results - last 24 hr 10/31/19 10:53: POC Glucose 433 H* 10/31/19 16:01: POC Glucose 368 H* 10/31/19 18:30: Vancomycin Trough 20.7 H 10/31/19 21:52: POC Glucose 360 H* 11/01/19 05:14: POC Glucose 254 H 11/01/19 05:45: PT 10.9, INR 1.05 11/01/19 05:45: WBC 11.4 H, RBC 3.31 L, Hgb 8.8 L, Hct 27.8 L, MCV 84.0, MCH 26.6 L, MCHC 31.7 L, RDW 20.0 H, Plt Count 393, MPV 8.1, Neut % (Auto) 65.3, Lymph % (Auto) 21.6, [place] % (Auto) 9.0, Eos % (Auto) 2.6, Baso % (Auto) 1.5, Neut # (Auto) 7.5, Lymph # (Auto) 2.5, [place] # (Auto) 1.0, Eos # (Auto) 0.3, Baso # (Auto) 0.2 11/01/19 06:00: Sodium 134 L, Potassium 4.0, Chloride 96 L, Carbon Dioxide 31 H, Anion Gap 11.0, BUN 19 H D, Creatinine 1.30 H, Estimated Creat Clear 57, Estimated GFR 43 L, Est GFR ( Amer) 52 L, Glucose 246 H D, Calcium 9.3 I & O for Last 24 hours: Intake & Output 10/29/19 10/30/19 10/31/19 11/01/19 11:59 11:59 11:59 11:59 Intake Total 460 / 460 1100 / 1100 2357 / 2357 1260 / 1260 Output Total 1999 310 / 310 503 / 503 Balance -1540 / -1540 1100 / 1100 2047 / 2047 757 / 757 Weight 153 lb 4 oz 152 lb 7 oz 152 lb 6.983 oz 155 lb 9 oz Microbiology Reports for the Last 24 Hours: Microbiology 10/30/19 15:36 Leg,Right - Deep Gram Stain - Final 10/30/19 15:36 Leg,Right - Deep Wound Culture - Preliminary NO GROWTH AFTER 24 HOURS 10/30/19 15:36 Leg,Right - Deep Gram Stain - Final 10/26/19 15:53 Blood Blood Culture - Final NO GROWTH AFTER 5 DAYS 10/26/19 15:53 Blood Blood Culture - Final NO GROWTH AFTER 5 DAYS - Constitutional no acute distress - *Routine Respiratory Exam Present: CTA bilaterally - *Routine Cardiovascular Exam Present: RRR - *Routine Abdominal Exam Present: soft, normoactive bowel sounds. Absent: tenderness - *Routine Extremities Exam Absent: cyanosis, clubbing, edema - *Routine Skin Exam Comments: dressing in place on right leg - *Routine Neurological Exam Present: alert, oriented X3 Assessment and Plan (1) Osteomyelitis of right foot Current visit: Yes Status: Acute Qualifiers: Osteomyelitis type: other Qualified Code(s): M86.8X7 - Other osteomyelitis, ankle and foot Category: Medical Code(s): M86.9 - Osteomyelitis, unspecified (2) Arterial insufficiency of lower extremity Current visit: No Status: Acute Category: Medical Code(s): I73.9 - Peripheral vascular disease, unspecified (3) History of left below knee amputation Current visit: No Status: Acute Category: Medical Code(s): Z89.512 - Acquired absence of left leg below knee (4) Coronary arteriosclerosis Current visit: No Status: Chronic Category: Medical Code(s): I25.10 - Atherosclerotic heart disease of [place] coronary artery without angina pectoris (5) Diabetes mellitus Current visit: No Status: Chronic Qualifiers: Diabetes mellitus type: type 2 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
--- NOTE | 2019-11-01 08:58 | HMH.PHACONS ---
- Pharmacy Consult Date: 11/01/19 Time: 08:58 Referring provider: DR. CAVAZOS Reason for Consult:: VANCOMYCIN TROUGH LEVEL Allergies and ADEs:: Allergies Allergy/AdvReac Type Severity Reaction Status Date / Time azithromycin Allergy Intermediate S-DIFF. Verified 10/26/19 13:19 BREATHING daptomycin [DAPTOMYCIN] Allergy Intermediate I-RASH/ITCH Verified 10/26/19 13:19 ING levofloxacin Allergy Intermediate I-RASH Verified 10/26/19 13:19 Penicillins Allergy Intermediate I-HIVES Verified 10/26/19 13:19 Home Medications:: Home Medications Medication Instructions Recorded Confirmed Type amiloride 5 mg tablet 5 mg PO DAILY 09/22/17 10/26/19 History baclofen 10 mg tablet 10 mg PO DAILY 09/22/17 10/26/19 History clopidogrel 75 mg tablet 75 mg PO DAILY 09/22/17 10/26/19 History glimepiride 2 mg tablet 2 mg PO DAILY 09/22/17 10/26/19 History metolazone 5 mg tablet 5 mg PO DAILY 09/22/17 10/26/19 History Donepezil HCl [Aricept 5mg 5 mg PO HS 04/14/18 10/26/19 History Tablet] Potassium Chloride 60 meq PO TID 04/14/18 10/26/19 History Spironolactone [Aldactone 25mg 25 mg PO DAILY 04/14/18 10/26/19 History Tab] Metoprolol Tartrate [Lopressor 12.5 mg PO DAILY 05/09/19 10/26/19 History 25mg tablet] Loratadine [Claritin] 10 mg PO DAILY 05/10/19 10/26/19 History Cholecalciferol (Vitamin D3) 4,000 units PO DAILY 07/23/19 10/26/19 History [Vitamin D3] Insulin Lispro [HumaLOG 100 0 unit SQ ACHS 07/23/19 10/27/19 History units/mL 3mL vial (SSI)] Acetaminophen [Acetaminophen Extra 500 mg PO TID #0 08/15/19 10/27/19 History Strength] Baclofen 20 mg PO HS 08/15/19 10/26/19 History Linagliptin/Metformin HCl 1 tab PO BID 08/15/19 10/26/19 History [Jentadueto 2.5 mg-1000 mg Tab] Saccharomyces Boulardii [Florastor] 250 mg PO DAILY #0 08/15/19 10/27/19 History Warfarin Sodium 7.5 mg PO DAILY 09/11/19 10/27/19 History ertapenem 1 gram solution for 1 gm IV DAILY 09/11/19 10/27/19 History injection linezolid 600 mg tablet 600 mg PO BID 09/11/19 10/26/19 History Cyanocobalamin (Vitamin B-12) 500 mcg PO DAILY 10/10/19 10/26/19 History [Vitamin B-12] Ferrous Sulfate [Ferrous Sulfate 325 mg PO TID 10/10/19 10/26/19 History 325mg Tablet] Furosemide [Furosemide 40MG tAB] 40 mg PO DAILY 10/10/19 10/26/19 History Insulin Detemir [Levemir 60 unit SQ BID 10/10/19 10/26/19 History 100units/mL 3mL flexpen] Multivitamin 1 each PO DAILY 10/10/19 10/27/19 History Atorvastatin Calcium [Atorvastatin 40 mg PO DAILY 10/26/19 10/27/19 History 40mg Tab] Calcium Carbonate [Tums Ultra 1,177 mg PO TID 10/27/19 10/27/19 History Strength] Height: 1.52 m Weight: 70.562 kg Laboratory Results:: Laboratory Results - last 24 hr 10/31/19 10:53: POC Glucose 433 H* 10/31/19 16:01: POC Glucose 368 H* 10/31/19 18:30: Vancomycin Trough 20.7 H 10/31/19 21:52: POC Glucose 360 H* 11/01/19 05:14: POC Glucose 254 H 11/01/19 05:45: PT 10.9, INR 1.05 11/01/19 05:45: WBC 11.4 H, RBC 3.31 L, Hgb 8.8 L, Hct 27.8 L, MCV 84.0, MCH 26.6 L, MCHC 31.7 L, RDW 20.0 H, Plt Count 393, MPV 8.1, Neut % (Auto) 65.3, Lymph % (Auto) 21.6, [place] % (Auto) 9.0, Eos % (Auto) 2.6, Baso % (Auto) 1.5, Neut # (Auto) 7.5, Lymph # (Auto) 2.5, [place] # (Auto) 1.0, Eos # (Auto) 0.3, Baso # (Auto) 0.2 11/01/19 06:00: Sodium 134 L, Potassium 4.0, Chloride 96 L, Carbon Dioxide 31 H, Anion Gap 11.0, BUN 19 H D, Creatinine 1.30 H, Estimated Creat Clear 57, Estimated GFR 43 L, Est GFR ( Amer) 52 L, Glucose 246 H D, Calcium 9.3 Medical History: Reports:: Arrhythmia, Atherosclerotic Heart Disease, Cancer, Carotid Stenosis, Congestive Heart Failure, Coronary Artery Disease, Cerebrovascular Accident, Deep Vein Thrombosis, Depression, Diabetes Mellitus Type 2, Gall Bladder Disease, Heart Murmur, Hyperlipidemia, Hypertension, MRSA, Myocardial Infarction, Peripheral Artery Disease, Peripheral Vascular Disease, Renal Disease, Renal Insufficiency, Transient [place]
[2019-11-01 11:12] LABS: POC Glucose,Bedside 324 (70-110)
--- NOTE | 2019-11-01 11:13 | P.PN_ITS ---
Subjective Date: 11/01/19 Time: 11:00 Principal diagnosis: R foot osteomyelitis Interval history: The patient is doing well this morning, though pain persists in the R leg. No fevers, minimal drainage in RICO drain. PN: Obj Ex Vital signs: Temp Pulse Resp BP Pulse Ox 97.9 F 86 18 161/78 H 100 11/01/19 07:37 11/01/19 07:37 11/01/19 07:37 11/01/19 07:37 11/01/19 07:37 - Constitutional no acute distress - Routine Extremities Exam Comments: s/p L BKA, well healed R BKA splint intact, no strikethrough on dressings RICO drain in place, scant bloody drainage in bulb R leg dressings/splint removed, RICO drain removed intact R BKA incision c/d/i, sutures intact; no erythema, ecchymosis, drainage ROM R knee 0-90 without pain no ascending cellulitis R leg; BKA stump appears healthy/viable Progress Note: A&P (1) Osteomyelitis of right foot Status: Acute Current Visit: Yes (2) Arterial insufficiency of lower extremity Status: Acute Current Visit: No (3) History of left below knee amputation Status: Acute Current Visit: No (4) Coronary arteriosclerosis Status: Chronic Current Visit: No (5) Diabetes mellitus Status: Chronic Current Visit: No (6) Hemiparesis affecting left side as late effect of cerebrovascular accident Status: Chronic Current Visit: No (7) History of CVA (cerebrovascular accident) Status: Chronic Current Visit: No (8) Hyperlipidemia Status: Chronic Current Visit: No (9) Hypertensive heart disease without heart failure Status: Chronic Current Visit: No (10) Type 2 diabetes mellitus with diabetic neuropathy, with long-term current use of insulin Status: Chronic Current Visit: No (11) SIRS (systemic inflammatory response syndrome) Status: Acute Current Visit: No (12) Sepsis Status: Acute Current Visit: No (13) Disorientated Status: Acute Current Visit: Yes Assessment and Plan for All Diagnoses:: 53yo F with RLE chronic non-healing ulcers + osteomyelitis s/p R TMA 07/2019 --> revised 08/2019 with positive intra-op bone cultures, wound necrosis, persistent pain and signs of increasing infection suspicious for sepsis. POD 2 s/p R BKA -- NWB RLE, continue PT/OT at [facility] -- offload L BKA stump + turn patient Q2 hours -- may be OOB with assist -- medical management per primary -- recommend continuing antibiotics until final path/cultures resulted and WBC/CRP normalizes -- ok to d/c to SNF from ortho standpoint -- change dressing once daily and monitor wound; xeroform, 4x4s, ABD, kerlix, JONO, edemawear wrap -- f/u with me in clinic 11/08/19 at 11am
--- NOTE | 2019-11-01 12:42 | HMH.DCSUM ---
General - General Admission date:: 10/26/19 <Fei Harmon - 11/02/19 16:59> 10/26/19 <Irina Gil - 11/01/19 13:00> Discharge date: 11/01/19 <Irina Gil - 11/01/19 13:00> HPI HPI: 53 year old female with numerous medical problems presented to the office of [facility] after being seen in the [facility] orthopedic office for preop evaluation for a right below the knee ambulation due to osteomyelitis. Patient was noted to be confused and listing to her left. He mother reported that she had acted the way previously when she was anemic and when she had an infection. She was noted to have a low grade fever in the office and her WBC count was elevated so arrangements were made to admit the patient and evaluate her for sepsis. She currently has a PICC line through which she has been receiving IVF antibiotics <Irina Gil - 11/01/19 13:00> Hospital Course Hospital Course: The patient was admitted for presumed sepsis. She was started on vancomycin, Invanz, and tobramycin as well as fluconazole due to recent wound culture results. Orthopedics was consulted and blood cultures were ordered. She was also started on some IV fluids. A chest x-ray was ordered showing nothing acute. She was seen in consultation by Dr. Clark. The patient's lactic acid and CRP were both elevated. She wanted to continue medical management and once medically stable, perform a right BKA. The patient did begin feeling better after receiving IV fluids and antibiotics. Her white blood cell count improved. She remained afebrile. Her warfarin was stopped and she was placed on Lovenox for upcoming surgery. She began tolerating a diet. Dr. Clark wanted to perform surgery on 10/30/2019. The patient's white blood cell count normalized. Her hemoglobin dropped slightly and her blood sugars were elevated. She was on sliding scale insulin. Her blood cultures returned showing no growth. 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 She tolerated the procedure well. X-rays following the procedure showed a below the knee amputation. Dr. Clark felt she would need to remain nonweightbearing on the right lower extremity and continue to splint and elevate her right lower extremity on pillows at all times. A drain was left in the wound. She was started on Lovenox and her baseline warfarin dose. Antibiotics were continued. The patient did have some pain in her leg after surgery. She was able to rest and eat without difficulty and her dressing remained clean and dry. The RICO drain had little drainage and the patient's H&H postop was within acceptable limits. She was scheduled on Percocet every 6 hours and she continued to have some breakthrough pain, therefore her dose and frequency were increased. The patient's wound cultures are still pending but Dr. Clark felt she could be discharged back to [place]. She will need to remain nonweightbearing on the right lower extremity and continue PT and OT. She can be out of bed with assistance. Dr. Clark felt she could be continued on oral antibiotics and the dressing will need to be changed once daily with Xeroform, 4 x 4's, ABD, Kerlix, Frank, and edemawear wrap. She will follow-up with Dr. Clark in her office on 11/08/2019. She will be discharged on cefdinir, Lovenox, and oxycodone. She will continue her zyvox as well. She will need a CBC, sed rate, and CRP on 11/02/19 and again on 11/07/19. She will also need a BMP on 11/07/19. She will need daily INR checks. <Irina Gil - 11/01/19 13:06> Objective Vital signs: Temp Pulse Resp BP Pulse Ox 98.7 F 72 20 152/79 H 94 L 11/02/19 08:00 11/02/19 08:00 11/02/19 08:00 11/02/19 08:00 11/02/19 08:00 <Fei Harmon - 11/02/19 16:59> Temp Pulse Resp BP Pulse Ox 97.9 F 86 18 161/78 H 100 05
--- NOTE | 2019-11-01 14:15 | SW/DCPLANNER ---
PATIENT IS DISCHARGING BACK TO [place] TODAY UNDER SKILLED CARE... FAMILY HAS BEEN NOTIFIED OF THE DISCHARGE..
--- NOTE | 2019-11-01 17:59 | PC.NURSE ---
0800 ABDOUL RG AT BEDSIDE. PATIENT IS FATIGUED. PATIENT REQUESTS PAIN MEDICATION. THIS RN REPORTED TO ABDOUL RG THAT PATIENT WAS LETHARGIC FROM PREVIOUS ADMINISTRATION OF PAIN MEDICATION. ABDOUL RG STATED THAT IT WAS OKAY TO ADMINISTER ONE PAIN PILL AT THIS TIME RATHER THAN THE ORDERED DOSE OF 2. THIS RN ADMINISTERED ONE PAIN PILL. PATIENT HAS BEEN TIRED FOR MOST OF THIS RN'S SHIFT. DR. EMANUEL AT BEDSIDE TO CHANGE DRESSING, PATIENT RATED PAIN AT 10/1O. DR. MARIA ASK THIS RN TO PROVIDE PATIENT WITH IV PAIN MEDICATION. THIS RN INQUIRED ABOUT PATIENT HAVING ICE TO HELP WITH PAIN, MD STATED THAT IT IS OKAY. THIS RN ADMINISTERED 0.5 MG DILAUDID. PATIENT WILL OPEN HER EYES WHEN ADDRESSED, IS SLOW TO RESPOND AND IS A&O X4. PATIENT HAD D/C ORDERERS TO RETURN TO [place]. THIS RN PHONED AND PROVIDED REPORT TO REINA BETANCOURT. 1518: THIS RN PHONED DR. BALDWIN TO INQUIRE IF PATIENT'S PICC LINE WAS TO REMAIN IN PLACE, MD STATED YES. THIS RN ALSO REPORTED THAT PATIENT'S MOTHER IS VERY CONCERNED IN REGARDS TO PATIENT'S BEHAVIOR. CANCELLED D.C ORDERS. DR. BALDWIN STATED THAT WE WILL OBSERVE PATIENT THRU THE NIGHT AND PATIENT WILL BE D/C IN AM IF PATIENT IS STABLE THRU THE NIGHT. THIS RN REPORTED INFORMATION TO PATIENT'S MOTHER. MOTHER VERBALIZED AN UNDERSTANDING. THIS PATIENT REQUESTED PAIN MEDICATION, THIS RN PROVIDED ICE PACKS AND EXPLAINED TO PATIENT AND MOTHER THAT THIS RN IS NOT COMFORTABLE ADMINISTRATING PAIN MEDICATION WITH HER BEING FATIGUED. PATIENT AND MOTHER VERBALIZED AN UNDERSTANDING AND AGREED. THIS RN REASSESSED PATIENT'S PAIN LEVEL, PATIENT STATED THAT SHE FEELS FINE. NO OTHER NEEDS OR CONCERNS AT THIS TIME.
--- NOTE | 2019-11-01 19:34 | PC.NURSE ---
PATIENT WAS EDUCATED MULTIPLY TIMES THE IMPORTANCE OF USING HER INCENTIVE SPIROMETER. PATIENT VERBALIZED AN UNDERSTANDING. THIS RN EDUCATED PATIENT'S MOTHER IN REGARDS TO USING THE INCENTIVE SPIROMETER. MOTHER VERBALIZED AN UNDERSTANDING. NO OTHER CONCERNS AT THIS TIME.
[2019-11-01 19:40] VITALS: BP 131/62; PULSE 86; RESP 18; TEMP 37.3; O2SAT 92
[2019-11-01 22:13] LABS: Tobramycin,Trough < 0.6 ug/ml (0-2.0)
--- NOTE | 2019-11-02 03:46 | PC.NURSE ---
A&OX4. PT TOLERATING RA WELL T/O SHIFT. PT TURNING HERSELF IN BED Q2H. DRESSING PRESENT TO RLE, ICE PACKS APPLIED T/O SHIFT AND ELEVATED ON PILLOWS. PT HAS NOT C/O PAIN T/O THIS SHIFT. I EDUCATED PT ON USE OF IS AND IMPORTANCE OF DRINKING WATER. PT RESTING WELL MAJORITY OF SHIFT. PUREWICK IN PLACE DRAINING BRIGHT YELLOW URINE. NO COMPLAINTS THUS FAR, VSS WILL CONTINUE TO MONITOR.
[2019-11-02 04:00] VITALS: BP 155/74; PULSE 76; RESP 18; TEMP 36.8; O2SAT 90
[2019-11-02 04:59] VITALS: BMI 29.7
[2019-11-02 06:17] LABS: Basophils # 0.1 K/mm3 (0-0.2); Basophils % 0.8 % (0.1-2.0); Eosinophils # 0.2 K/mm3 (0.0-0.4); Eosinophils % 1.7 % (0.1-12.0); Hematocrit 28.9 % (37.0-47.0); Hemoglobin 9.1 g/dL (12.2-16.2); Lymphocytes # 1.9 K/mm3 (0.7-4.5); Lymphocytes % 16.9 % (10-50); Mean Corpuscular HGB Conc 31.6 g/dL (31.8-35.4); Mean Corpuscular Hemoglobin 26.4 pg (27.0-31.2); Mean Corpuscular Volume 83.7 fl (81-99); Mean Platelet Volume 7.9 fl (7.4-10.4); Monocytes # 0.9 K/mm3 (0.1-1.0); Monocytes % 7.8 % (1.7-9.3); Neutrophils % 72.8 % (37.0-80.0); Platelet Count 491 K/mm3 (142-424); Red Blood Count 3.46 M/mm3 (4.20-5.40); Red Cell Distribution Width 20.1 % (11.5-17.5)
[2019-11-02 06:20] LABS: INR 1.39 (0.9-1.1); Prothrombin Time 14.2 seconds (9.4-11.8)
[2019-11-02 06:26] LABS: C-Reactive Protein 180.9 mg/L (0-4)
[2019-11-02 07:43] LABS: Erythrocyte Sedimentation Rate > 140 mm/hr (0-30)
[2019-11-02 08:00] VITALS: BP 152/79; PULSE 72; RESP 20; TEMP 37.1; O2SAT 94
--- NOTE | 2019-11-02 08:16 | HMH.ACPN2 ---
<Irina Gil - Last Filed: 11/02/19 08:16> Internal Medicine - PN: Subj *Date: 11/02/19 *Time: 08:16 Interval history: Patient is feeling well this morning. She has some phantom pain in her foot. She did rest well last night and ate a good breakfast this morning. Exam Vital signs and Labs for Last 24 Hours: Temp Pulse Resp BP Pulse Ox 98.3 F 76 18 155/74 H 90 L 11/02/19 04:00 11/02/19 04:00 11/02/19 04:00 11/02/19 04:00 11/02/19 04:00 Laboratory Results - last 24 hr 10/29/19 14:00: Crossmatch (AHG) See Detail 11/01/19 11:05: POC Glucose 324 H* 11/01/19 21:30: Tobramycin Trough < 0.6 11/02/19 05:50: PT 14.2 H, INR 1.39 H 11/02/19 05:50: WBC 11.0 H, RBC 3.46 L, Hgb 9.1 L, Hct 28.9 L, MCV 83.7, MCH 26.4 L, MCHC 31.6 L, RDW 20.1 H, Plt Count 491 H, MPV 7.9, Neut % (Auto) 72.8, Lymph % (Auto) 16.9, [place] % (Auto) 7.8, Eos % (Auto) 1.7, Baso % (Auto) 0.8, Neut # (Auto) 8.0 H, Lymph # (Auto) 1.9, [place] # (Auto) 0.9, Eos # (Auto) 0.2, Baso # (Auto) 0.1, ESR > 140 H 11/02/19 05:50: C-Reactive Protein 180.9 H I & O for Last 24 hours: Intake & Output 10/30/19 10/31/19 11/01/19 11/02/19 11:59 11:59 11:59 11:59 Intake Total 1100 / 1100 2357 / 2357 1360 / 1360 1430 / 1430 Output Total 310 / 310 503 / 503 2250 / 2250 Balance 1100 / 1100 2047 / 2047 857 / 857 -820 / -820 Weight 152 lb 7 oz 152 lb 6.983 oz 155 lb 9 oz 151 lb 7 oz Microbiology Reports for the Last 24 Hours: Microbiology 10/30/19 15:36 Leg,Right - Deep Gram Stain - Final 10/30/19 15:36 Leg,Right - Deep Wound Culture - Preliminary NO GROWTH AFTER 48 HOURS 10/30/19 15:36 Leg,Right - Deep Gram Stain - Final 10/30/19 15:36 Leg,Right - Deep Surgical Biopsy Culture - Preliminary NO GROWTH AFTER 24 HOURS - Constitutional no acute distress - *Routine Respiratory Exam Present: CTA bilaterally - *Routine Cardiovascular Exam Present: RRR - *Routine Abdominal Exam Present: soft, normoactive bowel sounds. Absent: tenderness - *Routine Extremities Exam Absent: cyanosis, clubbing, edema Comments: right BKA with dressing in place, clean and dry Assessment and Plan (1) Osteomyelitis of right foot Status: Acute Qualifiers: Osteomyelitis type: other Qualified Code(s): M86.8X7 - Other osteomyelitis, ankle and foot Category: Medical Code(s): M86.9 - Osteomyelitis, unspecified (2) Arterial insufficiency of lower extremity Status: Acute Category: Medical Code(s): I73.9 - Peripheral vascular disease, unspecified (3) History of left below knee amputation Status: Acute Category: Medical Code(s): Z89.512 - Acquired absence of left leg below knee (4) Coronary arteriosclerosis Status: Chronic Category: Medical Code(s): I25.10 - Atherosclerotic heart disease of [place] coronary artery without angina pectoris (5) Diabetes mellitus Status: Chronic Qualifiers: Diabetes mellitus type: type 2 Diabetes mellitus shelter insulin use: without termite renewal inspector use Diabetes mellitus complication status: with neurologic complications Diabetes mellitus complication detail: with polyneuropathy Qualified Code(s): E11.42 - Type 2 diabetes mellitus with diabetic polyneuropathy Category: Medical Code(s): E11.9 - Type 2 diabetes mellitus without complications (6) Hemiparesis affecting left side as late effect of cerebrovascular accident Status: Chronic Category: Medical Code(s): I69.354 - Hemiplegia and hemiparesis following cerebral infarction affecting left non-dominant side (7) History of CVA (cerebrovascular accident) Status: Chronic Category: Medical Code(s): Z86.73 - Personal history of transient ischemic attack (TIA), and cerebral infarction without residual deficits (8) Hyperlipidemia Status: Chronic Qualifiers: Hyperlipidemia type: unspecified Qualified Code(s): E78.5 - Hyperlipidemia, unspecified Categ
--- NOTE | 2019-11-02 09:01 | HMH.ACPN ---
Internal Medicine - PN: Subj *Date: 11/02/19 *Time: 09:01 Exam Vital signs and Labs for Last 24 Hours: Temp Pulse Resp BP Pulse Ox 98.7 F 72 20 152/79 H 94 L 11/02/19 08:00 11/02/19 08:00 11/02/19 08:00 11/02/19 08:00 11/02/19 08:00 Laboratory Results - last 24 hr 10/29/19 14:00: Crossmatch (AHG) See Detail 11/01/19 11:05: POC Glucose 324 H* 11/01/19 21:30: Tobramycin Trough < 0.6 11/02/19 05:50: PT 14.2 H, INR 1.39 H 11/02/19 05:50: WBC 11.0 H, RBC 3.46 L, Hgb 9.1 L, Hct 28.9 L, MCV 83.7, MCH 26.4 L, MCHC 31.6 L, RDW 20.1 H, Plt Count 491 H, MPV 7.9, Neut % (Auto) 72.8, Lymph % (Auto) 16.9, [place] % (Auto) 7.8, Eos % (Auto) 1.7, Baso % (Auto) 0.8, Neut # (Auto) 8.0 H, Lymph # (Auto) 1.9, [place] # (Auto) 0.9, Eos # (Auto) 0.2, Baso # (Auto) 0.1, ESR > 140 H 11/02/19 05:50: C-Reactive Protein 180.9 H I & O for Last 24 hours: Intake & Output 10/30/19 10/31/19 11/01/19 11/02/19 23:59 23:59 23:59 23:59 Intake Total 1650 / 1650 1387 / 1387 1760 / 1760 970 / 970 Output Total 560 / 560 853 / 853 1650 / 1650 Balance 1650 / 1650 827 / 827 907 / 907 -680 / -680 Weight 69.144 kg 69.144 kg 70.562 kg 68.691 kg Microbiology Reports for the Last 24 Hours: Microbiology 10/30/19 15:36 Leg,Right - Deep Gram Stain - Final 10/30/19 15:36 Leg,Right - Deep Wound Culture - Preliminary NO GROWTH AFTER 48 HOURS 10/30/19 15:36 Leg,Right - Deep Gram Stain - Final 10/30/19 15:36 Leg,Right - Deep Surgical Biopsy Culture - Preliminary NO GROWTH AFTER 24 HOURS Assessment and Plan (1) Osteomyelitis of right foot Current visit: Yes Status: Acute Qualifiers: Osteomyelitis type: other Qualified Code(s): M86.8X7 - Other osteomyelitis, ankle and foot Category: Medical Code(s): M86.9 - Osteomyelitis, unspecified (2) Arterial insufficiency of lower extremity Current visit: No Status: Acute Category: Medical Code(s): I73.9 - Peripheral vascular disease, unspecified (3) History of left below knee amputation Current visit: No Status: Acute Category: Medical Code(s): Z89.512 - Acquired absence of left leg below knee (4) Coronary arteriosclerosis Current visit: No Status: Chronic Category: Medical Code(s): I25.10 - Atherosclerotic heart disease of [place] coronary artery without angina pectoris (5) Diabetes mellitus Current visit: No Status: Chronic Qualifiers: Diabetes mellitus type: type 2 Diabetes mellitus 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 insulin use: without 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 use Diabetes mellitus complication status: with neurologic complications Diabetes mellitus complication detail: with polyneuropathy Qualified Code(s): E11.42 - Type 2 diabetes mellitus with diabetic polyneuropathy Category: Medical Code(s): E11.9 - Type 2 diabetes mellitus without complications (6) Hemiparesis affecting left side as late effect of cerebrovascular accident Current visit: No Status: Chronic Category: Medical Code(s): I69.354 - Hemiplegia and hemiparesis following cerebral infarction affecting left non-dominant side (7) History of CVA (cerebrovascular accident) Current visit: No Status: Chronic Category: Medical Code(s): Z86.73 - Personal history of transient ischemic attack (TIA), and cerebral infarction without residual deficits (8) Hyperlipidemia Current visit: No Status: Chronic Qualifiers: Hyperlipidemia type: unspecified Qualified Code(s): E78.5 - Hyperlipidemia, unspecified Category: Medical Code(s): E78.5 - Hyperlipidemia, unspecified (9) Hypertensive heart disease without heart failure Current visit: No Status: Chronic Category: Medical Code(s): I11.9 - Hypertensive heart disease without heart failure (10) Type 2 diabetes mellitus with diabetic neuropathy, with long-term current use of insulin Current visit: No Status: Chronic Category: Medical Code(s): E11.40 - Type 2 diabetes
[2019-11-02 10:05] LABS: POC Glucose,Bedside 443 (70-110)
[2019-11-02 10:05] LABS: POC Glucose,Bedside 382 (70-110)
[2019-11-02 10:05] LABS: POC Glucose,Bedside 409 (70-110)
--- NOTE | 2019-11-02 10:32 | SW/DCPLANNER ---
This patient will discharge to [facility] today. I have spoke with Kecia at [facility] regarding discharge.
[2019-11-02 11:18] LABS: POC Glucose,Bedside 443 (70-110)
== END 2019-11-02 11:35 | DRG 240 ==
LOC: 2ND 15:31
PROVIDERS: Family Medicine; Orthopaedic Surgery; Admitting Provider Family Medicine; PCP Family Medicine; Visit Provider Family Medicine
PROC: 0Y6H0Z2 Detachment at Right Lower Leg, Mid, Open Approach (ICD-10-PCS; CPT 27880; principal; 2019-10-30 13:00)
DX: M86.171 Other acute osteomyelitis, right ankle and foot (principal); E11.52 Type 2 diabetes mellitus with diabetic peripheral angiopathy with gangrene; R65.10 Systemic inflammatory response syndrome (SIRS) of non-infectious origin without acute organ dysfunction; M86.671 Other chronic osteomyelitis, right ankle and foot; L97.414 Non-pressure chronic ulcer of right heel and midfoot with necrosis of bone; I70.261 Atherosclerosis of native arteries of extremities with gangrene, right leg; E11.69 Type 2 diabetes mellitus with other specified complication; Z89.512 Acquired absence of left leg below knee; I11.9 Hypertensive heart disease without heart failure; E11.65 Type 2 diabetes mellitus with hyperglycemia; E11.621 Type 2 diabetes mellitus with foot ulcer; Z95.1 Presence of aortocoronary bypass graft; I10 Essential (primary) hypertension; Z79.01 Long term (current) use of 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; Z79.4 Long term (current) use of insulin; Z88.8 Allergy status to other drugs, medicaments and biological substances; Z88.1 Allergy status to other antibiotic agents; Z88.3 Allergy status to other anti-infective agents; Z79.899 Other long term (current) drug therapy; Z79.02 Long term (current) use of antithrombotics/antiplatelets
CPT/HCPCS: 27880; 36415; 71045; 73590; 80048; 80053; 80200; 80202; 82962; 83605; 84484; 85014; 85018; 85025; 85610; 85651; 85730; 86140; 86850; 87040; 87070; 87075; 87205; 88307; 97162; 97530; J1335; J1642; J2405; J3370; P9016

== ENCOUNTER 2019-11-19 10:00 | Outpatient (RCR) | payer MEDICARE, MEDICAID, SELFPAY ==
--- NOTE | 2019-11-15 11:15 | HMH.PTOPWND ---
Rehab Outpt Wound Evaluation Rehab OP Wound Evaluation Start: 11/15/19 09:56 Freq: Status: Active Protocol: Document 11/15/19 10:52 HUI (Rec: 11/15/19 11:12 PHOJUAN MANUEL [id number]) Electronically Signed By Livan Llamas, PT 11/15/19 10:52 Subjective/History History History Pt is 53 yowf with complicated medical hx who presents ~ 2 wks S/P R BKA with continued wounds appearing on the R residual limb. She reports increased pain in the distal residual limb since surgery. She has significant hx of L AKA, CVA with L hemiparesis and spacticity, DM-II, breast cancer with mastectomy. She also has extensive hx of multiple wounds with poor healing. Subjective Subjective Currently she c/o pain and tenderness to palpation throughout the R residual limb . Wound Eval Wound Right Distal Leg Wound Type post-surgical wound Wound Length (cm) 4.0 Wound Width (cm) 7.0 Wound Bed Appearance [place],Peeling Skin Percentage Granulated (%) 100 Wound Margins Description Macerated Surrounding Tissue Appearance [place] Edema Appearance Weeping Drainage Description Serosanguineous Drainage Amount Moderate Primary Dressing Silver Dressing Comment opticell Ag Wound Secondary Dressing Type Absorbant Pad,Gauze Roll/Wrap, Adhering Gauze Roll Comment optilock Wound Debridement Method Forceps Wound Debridement Amount of Tissue Minimal Removed Dressing Change Patient Tolerance Tolerated Well Right Medial Calf Wound Type post surgical wound Wound Length (cm) 5.5 Wound Width (cm) 4.4 Wound Bed Appearance Eschar Percentage of Eschar (Black) (%) 100 Wound Margins Description Well Defined Drainage Amount None Primary Dressing petroleum gauze Comment cross-hatched Wound Secondary Dressing Type Gauze Roll/Wrap,Adhering Gauze Roll Wound Debridement Method Sharps Wound Debridement Amount of Tissue None Removed Dressing Change Patient Tolerance Tolerated Well Wound Problems/Impairm
== END 2019-11-19 10:05 | disposition home or self-care (01) ==
LOC: PT 10:00
PROVIDERS: PCP Family Medicine; Visit Provider Orthopaedic Surgery
DX: Z89.511 Acquired absence of right leg below knee (principal)
CPT/HCPCS: 97163; 97597; 97598

== ENCOUNTER 2019-11-19 12:07 | Inpatient (IN) | payer MEDICARE, MEDICAID, SELFPAY ==
--- NOTE | 2019-11-19 12:25 | CA_ITS ---
APPROVED REPORT Right Lower Extremity Venous Study for DVT. Security Investigator: OSKAR LeyvaT Indications Lower Extremity Pain: Right Rt BKA infection,s/p right BKA 3 wks ago, non-healing stump Vein Imaging CFV (R): compressive, spontaneous, phasic, augmentation FEM (R): compressive, spontaneous, phasic, augmentation POP (R): compressive, spontaneous, phasic, augmentation GSV (R): Compressible GAS (R): Compressible Findings Study suggests no evidence of DVT of the right lower extremity. Study suggests no evidence of SVT of the right lower extremity. Conclusion No evidence of DVT or superficial thrombophlebitis in the veins scanned of the right lower extremity. Electronically signed by : Almas Flynn MD 11/19/2019 16:12:49
--- NOTE | 2019-11-19 12:48 | NM_ITS ---
PROCEDURE: NM BONE 3 PHASE CLINICAL INDICATION: RLE Right lower extremity pain redness and swelling status post amputation below the knee COMPARISON: XR TIBIA FIBULA RT 2V from 10/30/2019 CA ARTERIAL DUPLEX LE RT from 11/19/2019 TECHNIQUE: Dose: 25.4 mCi technetium MDP FINDINGS: Patient has had prior below the knee amputation bilaterally. Blood flow images show increased blood flow to the right distal thigh and knee. Blood pool activity also shows increased activity at the level of the knee and the distal thigh. There is a photopenic defect within the amputation stump below the knee. Delayed images also show increased activity to the at the patella knee and proximal tibia with persistent photopenic defect within the amputation stump below the knee. There has been a prior left below the knee amputation. IMPRESSION: There is increased blood flow blood pool and delayed activity on all 3 sequences at the region of the distal thigh knee and proximal tibia. These findings are compatible with osteomyelitis with possible septic joint. There is a prominent photopenic defect within the amputation stump. This could be due to hematoma or fluid collection such as an abscess. Dictated by: Almas Flynn MD 11/19/2019 19:50 Electronically signed by Almas Flynn MD in [place] 11/19/2019 19:50
--- NOTE | 2019-11-19 12:50 | HMH.ORTHHP ---
*Admission Date: 11/19/19 *Reason for consult:: RLE arterial insufficiency, gangrene s/p R BKA *History of present illness: 53yo F admitted from the office this afternoon for treatment of R BKA stump gangrene and possible limb ischemia. She is s/p R BKA performed 10/30/19. She is recovering in a local correction, where her INR has been elevated to 4.3. Her normal goal is 2-3. Last week she appeared to have hemmorrhagic blistering of the stump, and was sent for treatment with the wound care clinic. She is accompanied by her mother today, who is concerned the stump is worsening. The patient reports persistent pain and inability for the leg to be touched. Her pain is rated a 4/10 today. No fevers or chills reported, no drainage reported from the stump. Last wound care visit was , 11/15/19. She was sent for triple phase bone scan and arterial doppler of the RLE prior to admission today. [facility] History I have reviewed the patient's past medical history: Yes Medical History: Reports:: Arrhythmia, Atherosclerotic Heart Disease, Cancer, Carotid Stenosis, Congestive Heart Failure, Coronary Artery Disease, Cerebrovascular Accident, Deep Vein Thrombosis, Depression, Diabetes Mellitus Type 2, Gall Bladder Disease, Heart Murmur, Hyperlipidemia, Hypertension, MRSA, Myocardial Infarction, Peripheral Artery Disease, Peripheral Vascular Disease, Renal Disease, Renal Insufficiency, Transient Ischemic Attacks (TIA), Urinary Tract Infection Denies:: Asthma, Chronic Obstructive Pulmonary Disease (COPD), Diabetes Mellitus Type 1, Internal Pacemaker, Lung Disease, Seizures *Have you ever received a pneumonia vaccine?: No *Have you received a flu vaccine this season?: No Other Medical History: Reports: Anemia, Arthritis, Chemotherapy, Sinus Problems, Other. Denies: Blood Transfusion Reaction Laterality Cases: Left: Lumpectomy, Right: Carpal Tunnel Release, Mastectomy, Other Other Surgeries: Yes: Appendectomy, CABG (with 4 vessels repaired ), Cancer Surgery, Cardiac Catheterization, Cardiac Surgery, Cholecystectomy, Colonoscopy, Coronary Stent (legs ), , Hernia Repair, Open Heart Surgery, Tubal Ligation, Other (amputee left leg and right toes, stent to right leg). No: Pacemaker Amputation: Yes (LEFT BKA, RIGHT TOES AND PARITAL RIGHT FOOT AMPUTATIONS) Fractures: No - *Social History Smoking Status: Never smoker # Packs/Day (cigarettes): 0 #Yrs smoked (if former smoker): 0 Alcohol Intake: never Alcohol Intake Frequency:: other Substance Use Type: denies use *Occupational Status:: disabled Housing: correction Household Members: caregiver *Travel in the last 8 weeks: None - Psychiatric History Pschychiatric History:: Reports:: Depression Family Hx:: Asthma, Cancer, Coronary Artery Disease, Diabetes, Heart Attack, Hyperlipidemia, Hypertension, Stroke Review of Systems - Review of Systems Review of systems:: pertinent systems reviewed and negative unless documented below - Constitutional Denies fever(s), Denies headache(s) - Eyes Denies blurry vision - *Cardiovascular Denies chest pain - *Respiratory Denies shortness of breath - *Gastrointestinal Denies abdominal pain - *Musculoskeletal Reports joint pain - Integumentary/Breasts Reports changing lesions, Reports redness, Reports skin ulcer - *Neurologic Denies dizziness Meds Home Medications Medication Instructions Recorded Confirmed Type amiloride 5 mg tablet 5 mg PO DAILY 09/22/17 11/19/19 History baclofen 10 mg tablet 10 mg PO DAILY 09/22/17 11/19/19 History clopidogrel 75 mg tablet 75 mg PO DAILY 09/22/17 11/19/19 History glimepiride 2 mg tablet 2 mg PO DAILY 09/22/17 11/19/19 History metolazone 5 mg tablet 5 mg PO DAILY 09/22/17 11/19/19 History Donepezil HCl [Aricept 5mg 5 mg PO HS 04/14/18 11/19/19 History Tablet] Potassium Chloride 60 meq PO TID 04/14/18 11/19/19 History Spironolactone [Aldactone 25mg 25 mg PO DAILY 04/14/18 11/19/19 History Tab] Metoprol
--- NOTE | 2019-11-19 12:58 | XR_ITS ---
PROCEDURE: XR CHEST 2V CLINICAL HISTORY: pre-op Heart disease COMPARISON: XR CHEST PORTABLE from 08/14/2019 XR CHEST PORTABLE from 08/15/2019 XR CHEST PORTABLE from 10/26/2019 FINDINGS: Prior CABG. Normal heart size. The lungs are clear without infiltrates, suspicious nodules, or pleural effusions. Surgical clips are present in the right axilla. Sclerosis is present in the right humeral neck and may be due to avascular necrosis. IMPRESSION: No acute findings. Dictated by: Almas Flynn MD 11/20/2019 06:51 Electronically signed by Almas Flynn MD in [place] 11/20/2019 06:51
--- NOTE | 2019-11-19 13:17 | CA_ITS ---
APPROVED REPORT Pipelayer: Maryse Rodarte RVT Laterality: Bilateral Study Quality: Adequate Indications: ? ischemia, pt had right BKA 3 wks ago, non-healing Risk Factors History of Lower Extremity PAD: Bilaterally Surgery/Intervention Angioplasty : Stent : VELOCITY AND DOPPLER WAVEFORM ANALYSIS RIGHT cm/sec Waveform Severity FELT HAT FLANGING OPERATOR 48.6/ Monophasic PFA 40.5/ Monophasic Prox SFA 28.5/ Monophasic Mid SFA 24.7/ Monophasic Dis SFA 43.1/ Monophasic POP 24.3/ Monophasic LEFT cm/sec Waveform Severity Findings Study shows a monophasic waveform in the right FELT HAT FLANGING OPERATOR,profunda, SFA and popliteal artery with decreased velocites at all levels. Conclusion Study shows a monophasic waveform in the right FELT HAT FLANGING OPERATOR,profunda, SFA and popliteal artery with decreased velocites at all levels. No occlusion Electronically signed by : Almas Flynn MD 11/19/2019 16:09:39
[2019-11-19 13:36] VITALS: BP 127/76; PULSE 110; RESP 16; TEMP 37.5; O2SAT 96; BMI 29.0
--- NOTE | 2019-11-19 14:00 | ECG_ITS ---
APPROVED REPORT Exam: Resting ECG HR:108 bpm ECG Measurements Heart Rate 108 AXES CA 124 P -6 QRSd 88 QRS -5 QT 350 T 113 QTc 469 <Conclusion> Sinus tachycardia ST & T wave abnormality, consider lateral ischemia Abnormal ECG Electronically signed by : Sabino Wilder, 11/20/2019 15:50:35
--- NOTE | 2019-11-19 14:05 | PC.NURSE ---
attempting to contact skilled nursing at this time for copy of mar. will do med rec once mar received from skilled nursing
[2019-11-19 14:15] LABS: Chloride 89 mmol/L (98-107)
[2019-11-19 14:16] LABS: Potassium 3.9 mmoL/L (3.5-5.1); Sodium 136 mmol/L (136-145)
[2019-11-19 14:18] LABS: Alanine Aminotransferase 36 U/L (12-78); Alkaline Phosphatase 128 U/L (38-126); Anion Gap 33.9 mEq/L (5-15); Aspartate Amino Transferase 40 U/L (14-36); Bilirubin,Total 0.5 mg/dl (0.2-1.3); Blood Urea Nitrogen 20 mg/dl (7-17); Carbon Dioxide 17 mmol/L (22.0-30.0); Creatinine Clearance Estimated 64 mL/min (50-200); Estimated Glomerular Filt Rate 52 ml/min (>60); GFR (African American) 63 ML/MIN (>60)
[2019-11-19 14:19] LABS: Albumin Level 4.5 g/dl (3.5-5.0); Albumin/Globulin Ratio 0.9 (1.1-1.8); Calcium 10.4 mg/dl (8.4-10.2); Globulin 5.2 g/dL (1.3-3.2); Glucose 155 mg/dl (74-100); Total Protein,Serum 9.7 g/dl (6.3-8.2)
[2019-11-19 14:24] LABS: C-Reactive Protein 200.5 mg/L (0-4)
--- NOTE | 2019-11-19 14:36 | PC.NURSE ---
spoke with darius office who okayed patient to have diabetic diet. also let her know that only flotation mattress were bariatric beds but patient did not weigh enough for that. stated we could order egg crate but would not know when it would come in. darius swtated to ensure that patient legs float and do not touch the bed
[2019-11-19 15:05] LABS: Basophils # 0.2 K/mm3 (0-0.2); Basophils % 1.2 % (0.1-2.0); Eosinophils % 0.1 % (0.1-12.0); Hematocrit 35.4 % (37.0-47.0); Hemoglobin 11.2 g/dL (12.2-16.2); Lymphocytes # 1.9 K/mm3 (0.7-4.5); Mean Corpuscular HGB Conc 31.6 g/dL (31.8-35.4); Mean Corpuscular Hemoglobin 27.2 pg (27.0-31.2); Mean Corpuscular Volume 86.2 fl (81-99); Mean Platelet Volume 7.1 fl (7.4-10.4); Monocytes # 0.7 K/mm3 (0.1-1.0); Monocytes % 3.7 % (1.7-9.3); Neutrophils # 14.8 K/mm3 (1.8-7.8); Platelet Count 495 K/mm3 (142-424); Red Blood Count 4.11 M/mm3 (4.20-5.40); Red Cell Distribution Width 18.5 % (11.5-17.5); White Blood Count 17.7 K/mm3 (4.8-10.8)
[2019-11-19 15:11] LABS: MANUAL DIFFERENTIAL MANUAL DIFFERENTIAL (MANUAL DIFF)
[2019-11-19 16:00] VITALS: BP 125/85; PULSE 112; RESP 18; TEMP 36.4; O2SAT 98
[2019-11-19 16:00] LABS: Prothrombin Time 38.2 seconds (9.4-11.8)
[2019-11-19 16:01] LABS: Activated Partial Thrombo Time 69.4 seconds (23.6-34.0); INR 4.07 (0.9-1.1)
--- NOTE | 2019-11-19 16:41 | HMH.ACPN2 ---
Internal Medicine - PN: Subj *Date: 11/19/19 *Time: 16:41 Interval history: Spoke to Dr. Clark earlier today about patient. Discussed urgent surgical management of gangrenous right BKA stump site. SPoke to patient and her mother just now about current situation. Patient has been having a lot of pain in her right leg at the stump site. She has also had some low grade fever. Exam Vital signs and Labs for Last 24 Hours: Temp Pulse Resp BP Pulse Ox 97.6 F 112 H 18 125/85 98 11/19/19 16:00 11/19/19 16:00 11/19/19 16:00 11/19/19 16:00 11/19/19 16:00 Laboratory Results - last 24 hr 11/19/19 13:23: WBC 17.7 H, RBC 4.11 L, Hgb 11.2 L, Hct 35.4 L, MCV 86.2, MCH 27.2, MCHC 31.6 L, RDW 18.5 H, Plt Count 495 H, MPV 7.1 L, Neut % (Auto) 84.0 H, Lymph % (Auto) 11.0, Banks % (Auto) 3.7, Eos % (Auto) 0.1, Baso % (Auto) 1.2, Neut # (Auto) 14.8 H, Lymph # (Auto) 1.9, Banks # (Auto) 0.7, Eos # (Auto) 0.0, Baso # (Auto) 0.2 11/19/19 13:23: PT 38.2 H, INR 4.07 H, APTT 69.4 H* D 11/19/19 13:23: Sodium 136, Potassium 3.9, Chloride 89 L, Carbon Dioxide 17 L, Anion Gap 33.9 H, BUN 20 H, Creatinine 1.10 H, Estimated Creat Clear 64, Estimated GFR 52 L, Est GFR ( Amer) 63, Glucose 155 H, Calcium 10.4 H, Total Bilirubin 0.5, AST 40 H, ALT 36, Alkaline Phosphatase 128 H, Total Protein 9.7 H, Albumin 4.5, Globulin 5.2 H, Albumin/Globulin Ratio 0.9 L 11/19/19 13:23: C-Reactive Protein 200.5 H I & O for Last 24 hours: Intake & Output 05/11/17/19 11/18/19 11/19/19 23:59 23:59 23:59 23:59 Intake Total 240 / 240 Balance 240 / 240 Weight 148 lb 9 oz - Constitutional no acute distress - *Routine Skin Exam Comments: right BKA surgical site and stump examined, see photos in chart, skin is almost black, large oval wound over the medial side, no drainage from site - *Routine Neurological Exam Present: alert, oriented X3 Assessment and Plan (1) Gangrene Current visit: Yes Status: Acute Category: Medical Code(s): I96 - Gangrene, not elsewhere classified (2) Arterial insufficiency of lower extremity Current visit: No Status: Acute Category: Medical Code(s): I73.9 - Peripheral vascular disease, unspecified (3) Fever Current visit: No Status: Acute Category: Medical Code(s): R50.9 - Fever, unspecified (4) History of CVA (cerebrovascular accident) Current visit: No Status: Chronic Category: Medical Code(s): Z86.73 - Personal history of transient ischemic attack (TIA), and cerebral infarction without residual deficits (5) 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 Current visit: No Status: Chronic Category: Medical Code(s): Z79.01 - intermission coordinator (current) use of 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 (6) Obesity (BMI 30.0-34.9) Current visit: No Status: Chronic Category: Medical Code(s): E66.9 - Obesity, unspecified (7) Type 2 diabetes mellitus with diabetic neuropathy, with long-term current use of insulin Current visit: No Status: Chronic Category: Medical Code(s): E11.40 - Type 2 diabetes mellitus with diabetic neuropathy, unspecified; Z79.4 - intermission coordinator (current) use of insulin (8) Elevated INR Current visit: Yes Status: Acute Category: Medical Code(s): R79.1 - Abnormal coagulation profile (9) Anemia Current visit: No Status: Chronic Qualifiers: Anemia type: unspecified type Qualified Code(s): D64.9 - Anemia, unspecified Category: Medical Code(s): D64.9 - Anemia, unspecified (10) History of left below knee amputation Current visit: No Status: Chronic Category: Medical Code(s): Z89.512 - Acquired absence of left leg below knee (11) Peripheral arterial occlusive disease Current visit: No Status: Chronic Category: Medical Code(s): I77.9 - Disorder of arteries and arterioles, unspecified - Assessment and plan all Dx Assessment and Plan for all problems:: Will give 5 mg of Vit K now and start sliding scale insulin, agree that
[2019-11-19 16:42] LABS: Erythrocyte Sedimentation Rate 19 mm/hr (0-30)
[2019-11-19 17:12] LABS: POC Glucose,Bedside 257 (70-110)
--- NOTE | 2019-11-19 17:57 | PC.NURSE ---
inr elevated from warfarin. patient rings out as needed. dressing to r stump changed and pictures obtained. betadine 4x4 placed on stump with kerlex and kristie bandage. area noted to be black. attempting to float stumps. requested purwick be in place. some complaints of pain only wanting po meds at this time. educated to ring out if pain gets worse. alert and oriented. vitals stable. will continue to monitor. plan for surgery in morning per md. npo at midnight.
[2019-11-19 18:43] LABS: Coronavirus 19 IgG Antibody Negative (Negative); Coronavirus 19 IgM Antibody Negative (Negative)
--- NOTE | 2019-11-19 19:11 | PC.NURSE ---
report given to soren
[2019-11-19 19:48] LABS: Hemoglobin A1C 6.8 % (4.0-6.0)
[2019-11-19 20:00] VITALS: BP 132/69; PULSE 87; RESP 20; TEMP 37.4; O2SAT 95
[2019-11-19 21:16] LABS: Lymphocytes % 19 % (10-50); Monocytes % 2 % (2-9); Neutrophils % 79 % (42-76); Platelet Estimate Normal; Total Cells Counted 100
[2019-11-19 21:17] LABS: Anisocytosis 1+
[2019-11-19 21:27] LABS: POC Glucose,Bedside 72 (70-110)
--- NOTE | 2019-11-19 22:55 | PC.NURSE ---
S/W Davide Salter, on-call pharmacist, to verify Tobromycin dosing. 134.774mg q8hr IV is ok [place] [id number] on 11/20/19 and pharmacy will redose post-op.
[2019-11-20] VITALS (36 sets, daily range): BP systolic 96–143; BP diastolic 49–83; PULSE 75–102; RESP 12–20; TEMP 36.6–43; O2SAT 90–100; BMI 30.4
[2019-11-20 05:18] LABS: POC Glucose,Bedside 117 (70-110)
[2019-11-20 06:21] LABS: Eosinophils # 0.1 K/mm3 (0.0-0.4); Monocytes # 0.9 K/mm3 (0.1-1.0); Red Cell Distribution Width 18.9 % (11.5-17.5)
[2019-11-20 06:31] LABS: Chloride 89 mmol/L (98-107); Sodium 133 mmol/L (136-145)
[2019-11-20 06:34] LABS: Blood Urea Nitrogen 19 mg/dl (7-17); Carbon Dioxide 34 mmol/L (22.0-30.0); Creatinine Clearance Estimated 72 mL/min (50-200); Estimated Glomerular Filt Rate 58 ml/min (>60); GFR (African American) 71 ML/MIN (>60); Glucose 109 mg/dl (74-100)
[2019-11-20 06:45] LABS: Basophils # 0.2 K/mm3 (0-0.2); Basophils % 1.6 % (0.1-2.0); Eosinophils % 0.5 % (0.1-12.0); Hematocrit 27.8 % (37.0-47.0); Lymphocytes # 2.5 K/mm3 (0.7-4.5); Lymphocytes % 20.9 % (10-50); Mean Corpuscular HGB Conc 32.2 g/dL (31.8-35.4); Mean Corpuscular Hemoglobin 27.3 pg (27.0-31.2); Mean Corpuscular Volume 84.9 fl (81-99); Mean Platelet Volume 6.9 fl (7.4-10.4); Monocytes % 7.5 % (1.7-9.3); Neutrophils # 8.4 K/mm3 (1.8-7.8); Neutrophils % 69.6 % (37.0-80.0); Platelet Count 363 K/mm3 (142-424); Red Blood Count 3.28 M/mm3 (4.20-5.40); White Blood Count 12.1 K/mm3 (4.8-10.8)
[2019-11-20 06:55] LABS: INR 3.14 (0.9-1.1)
[2019-11-20 06:57] LABS: Calcium 8.8 mg/dl (8.4-10.2)
--- NOTE | 2019-11-20 07:55 | HMH.PHAINT ---
HOME MEDICATION RECONCILIATION COMPLETED USING LIST FROM PREVIOUS DISCHARGE
--- NOTE | 2019-11-20 07:57 | HMH.PHAVTE ---
[facility] Pharmacy VTE Monitoring - Patient Demographics Admission date: 11/20/19 Report Date: 11/20/19 Time: 07:57 Allergies/Adverse Reactions: Patient Allergies azithromycin Allergy (Intermediate, Verified 11/19/19 09:58) S-DIFF. BREATHING daptomycin [DAPTOMYCIN] Allergy (Intermediate, Verified 11/19/19 09:58) I-RASH/ITCHING levofloxacin Allergy (Intermediate, Verified 11/19/19 09:58) I-RASH Penicillins Allergy (Intermediate, Verified 11/19/19 09:58) I-HIVES Height: 1.5 m Weight: 68.583 kg Patient Problems: Current Active Problems Gangrene (Acute) Elevated INR (Acute) - VTE Risk Labs: VTE Related Lab Results Hgb 9.0 g/dL (12.2-16.2) L D 11/20/19 05:46 Hct 27.8 % (37.0-47.0) L 11/20/19 05:46 Plt Count 363 K/mm3 (142-424) D 11/20/19 05:46 PT 30.0 seconds (9.4-11.8) H 11/20/19 05:46 INR 3.14 (0.9-1.1) H 11/20/19 05:46 APTT 69.4 seconds (23.6-34.0) H* D 11/19/19 13:23 BUN 19 mg/dl (7-17) H 11/20/19 05:46 Creatinine 1.00 mg/dl (0.52-1.04) 11/20/19 05:46 Estimated Creat Clear 72 mL/min (50-200) 11/20/19 05:46 Was VTE Risk Assessment Performed: Yes VTE Score: 8 VTE Risk Level: Moderate Risk Clinical Trial Participant: No - Prophylaxis VTE Prophylaxis Ordered?: Yes Types of VTE Prophylaxis: TEDS Knee High
--- NOTE | 2019-11-20 08:10 | PC.NURSE ---
Pt is A&O and has been turned and legs repositioned q2 this shift. Dressing to right stump C/D/I. Pt has c/o pain to r leg a few times this shift, medicated per MAR with good relief on reassessment. Pt slept in short intervals t/o shift. ABD soft, puffy with active BS noted. No BM this shift. Purwick in place and draining ylw urine to ADMINISTRATIVE TECHNICIAN. Pt has remained afebrile this shift. Pt denies any N/V or SOB.
--- NOTE | 2019-11-20 08:39 | HMH.ACPN2 ---
Internal Medicine - PN: Subj *Date: 11/20/19 *Time: 08:39 Interval history: Patient with no new complaints today, still having pain in right BKA stump. Exam Vital signs and Labs for Last 24 Hours: Temp Pulse Resp BP Pulse Ox 100.3 F H 102 H 20 96/80 L 97 11/20/19 07:59 11/20/19 07:59 11/20/19 07:59 11/20/19 07:59 11/20/19 07:59 Laboratory Results - last 24 hr 11/19/19 13:23: WBC 17.7 H, RBC 4.11 L, Hgb 11.2 L, Hct 35.4 L, MCV 86.2, MCH 27.2, MCHC 31.6 L, RDW 18.5 H, Plt Count 495 H, MPV 7.1 L, Neut % (Auto) 84.0 H, Lymph % (Auto) 11.0, [place] % (Auto) 3.7, Eos % (Auto) 0.1, Baso % (Auto) 1.2, Neut # (Auto) 14.8 H, Lymph # (Auto) 1.9, [place] # (Auto) 0.7, Eos # (Auto) 0.0, Baso # (Auto) 0.2, Total Counted 100, Neutrophils % (Manual) 79 H, Lymphocytes % (Manual) 19, Monocytes % (Manual) 2, Platelet Estimate Normal, Anisocytosis 1+ 11/19/19 13:23: PT 38.2 H, INR 4.07 H, APTT 69.4 H* D 11/19/19 13:23: Sodium 136, Potassium 3.9, Chloride 89 L, Carbon Dioxide 17 L, Anion Gap 33.9 H, BUN 20 H, Creatinine 1.10 H, Estimated Creat Clear 64, Estimated GFR 52 L, Est GFR ( Amer) 63, Glucose 155 H, Calcium 10.4 H, Total Bilirubin 0.5, AST 40 H, ALT 36, Alkaline Phosphatase 128 H, Total Protein 9.7 H, Albumin 4.5, Globulin 5.2 H, Albumin/Globulin Ratio 0.9 L 11/19/19 13:23: ESR 19 11/19/19 13:23: C-Reactive Protein 200.5 H 11/19/19 13:23: Hemoglobin A1c 6.8 H 11/19/19 13:30: SARS-CoV-2 IgG Ab (Rapid) Negative, SARS-CoV-2 IgM Ab (Rapid) Negative 11/19/19 16:50: POC Glucose 257 H 11/19/19 21:06: POC Glucose 72 11/20/19 05:05: POC Glucose 117 H 11/20/19 05:46: WBC 12.1 H D, RBC 3.28 L, Hgb 9.0 L D, Hct 27.8 L, MCV 84.9, MCH 27.3, MCHC 32.2, RDW 18.9 H, Plt Count 363 D, MPV 6.9 L, Neut % (Auto) 69.6, Lymph % (Auto) 20.9, [place] % (Auto) 7.5, Eos % (Auto) 0.5, Baso % (Auto) 1.6, Neut # (Auto) 8.4 H, Lymph # (Auto) 2.5, [place] # (Auto) 0.9, Eos # (Auto) 0.1, Baso # (Auto) 0.2 11/20/19 05:46: PT 30.0 H, INR 3.14 H 11/20/19 05:46: Sodium 133 L, Potassium 3.0 L, Chloride 89 L, Carbon Dioxide 34 H D, Anion Gap 13.0, BUN 19 H, Creatinine 1.00, Estimated Creat Clear 72, Estimated GFR 58 L, Est GFR ( Amer) 71, Glucose 109 H D, Calcium 8.8 D 11/20/19 07:47: Crossmatch (AHG) See Detail I & O for Last 24 hours: Intake & Output 11/17/19 11/18/19 11/19/19 11/20/19 23:59 23:59 23:59 23:59 Intake Total 840 / 910 1013 / 1013 Output Total 650 / 650 Balance 840 / 910 363 / 363 Weight 148 lb 9 oz 151 lb 3.2 oz - Constitutional no acute distress - *Routine Respiratory Exam Present: CTA bilaterally - *Routine Cardiovascular Exam Present: RRR, murmur (systolic) Assessment and Plan (1) Gangrene Current visit: Yes Status: Acute Category: Medical Code(s): I96 - Gangrene, not elsewhere classified (2) Arterial insufficiency of lower extremity Current visit: No Status: Acute Category: Medical Code(s): I73.9 - Peripheral vascular disease, unspecified (3) Fever Current visit: No Status: Acute Category: Medical Code(s): R50.9 - Fever, unspecified (4) History of CVA (cerebrovascular accident) Current visit: No Status: Chronic Category: Medical Code(s): Z86.73 - Personal history of transient ischemic attack (TIA), and cerebral infarction without residual deficits (5) 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
--- NOTE | 2019-11-20 08:55 | SW/DCPLANNER ---
Addendum entered by Tash Taylor 11/22/19 09:38: SPOKE WITH NASREEN @ [facility] AND MS [facility]DRICK'S BED IS BEING HELD FOR HER RETURN..... Original Note: PATIENT ADMITTED TO [facility] WITH LIMB ISCHEMIA SHE IS A RESIDENT OF [facility] AND IS SCHEDULED FOR SURGERY TODAY. PATIENT HAS ON AND OFF ADMISSIONS TO [facility] WITH THIS PROBLEM, WILL CONTACT [facility] TO SEE IF HER BED IS BEING HELD FOR HER RETURN.. DISPOSITION UNCERTAIN, CM WILL FOLLOW AND ASSIST INDICATED MY MD AND PATIENT....
--- NOTE | 2019-11-20 09:27 | PC.NURSE ---
lab reported 2 units of blood is ready however, order says to not transfuse
[2019-11-20 10:33] LABS: INR 1.85 (0.9-1.1); Prothrombin Time 18.3 seconds (9.4-11.8)
[2019-11-20 10:54] LABS: Tobramycin,Random 4.6 ug/ml
[2019-11-20 10:56] LABS: POC Glucose,Bedside 138 (70-110)
--- NOTE | 2019-11-20 11:17 | HMH.PHACONS ---
- Pharmacy Consult Date: 11/20/19 Time: 11:18 Referring provider: DR. EMANUEL Reason for Consult:: TOBRAMYCIN LEVEL AND DOSING Allergies and ADEs:: Allergies Allergy/AdvReac Type Severity Reaction Status Date / Time azithromycin Allergy Intermediate S-DIFF. Verified 11/19/19 09:58 BREATHING daptomycin [DAPTOMYCIN] Allergy Intermediate I-RASH/ITCH Verified 11/19/19 09:58 ING levofloxacin Allergy Intermediate I-RASH Verified 11/19/19 09:58 Penicillins Allergy Intermediate I-HIVES Verified 11/19/19 09:58 Home Medications:: Home Medications Medication Instructions Recorded Confirmed Type amiloride 5 mg tablet 5 mg PO DAILY 09/22/17 11/19/19 History baclofen 10 mg tablet 10 mg PO DAILY 09/22/17 11/19/19 History clopidogrel 75 mg tablet 75 mg PO HS 09/22/17 11/19/19 History glimepiride 2 mg tablet 2 mg PO DAILY 09/22/17 11/19/19 History metolazone 5 mg tablet 5 mg PO DAILY 09/22/17 11/19/19 History Donepezil HCl [Aricept 5mg 5 mg PO HS 04/14/18 11/19/19 History Tablet] Potassium Chloride 60 meq PO TID 04/14/18 11/20/19 History Spironolactone [Aldactone 25mg 25 mg PO DAILY 04/14/18 11/19/19 History Tab] Metoprolol Tartrate [Lopressor 12.5 mg PO DAILY 05/09/19 11/19/19 History 25mg tablet] Loratadine [Claritin] 10 mg PO DAILY 05/10/19 11/19/19 History Cholecalciferol (Vitamin D3) 4,000 units PO DAILY 07/23/19 11/19/19 History [Vitamin D3] Insulin Lispro [HumaLOG 100 0 unit SQ ACHS 07/23/19 11/19/19 History units/mL 3mL vial (SSI)] Acetaminophen [Acetaminophen Extra 500 mg PO TID #0 08/15/19 11/19/19 History Strength] Baclofen 20 mg PO HS 08/15/19 11/19/19 History Linagliptin/Metformin HCl 1 tab PO BID 08/15/19 11/19/19 History [Jentadueto 2.5 mg-1000 mg Tab] Saccharomyces Boulardii [Florastor] 250 mg PO DAILY #0 08/15/19 11/19/19 History Warfarin Sodium 5 mg PO DAILY 09/11/19 11/19/19 History linezolid 600 mg tablet 600 mg PO BID 09/11/19 11/19/19 History Cyanocobalamin (Vitamin B-12) 500 mcg PO DAILY 10/10/19 11/19/19 History [Vitamin B-12] Ferrous Sulfate [Ferrous Sulfate 325 mg PO TID 10/10/19 11/19/19 History 325mg Tablet] Furosemide [Furosemide 40MG tAB] 40 mg PO DAILY 10/10/19 11/19/19 History Insulin Detemir [Levemir 60 unit SQ BID 10/10/19 11/19/19 History 100units/mL 3mL flexpen] Multivitamin 1 each PO DAILY 10/10/19 11/19/19 History Atorvastatin Calcium [Atorvastatin 40 mg PO DAILY 10/26/19 11/19/19 History 40mg Tab] Calcium Carbonate [Tums Ultra 1,177 mg PO TID 10/27/19 11/19/19 History Strength] Oxycodone HCl/Acetaminophen 1 each PO Q6HP PRN #30 tab 11/01/19 11/19/19 Rx [Percocet 5/325mg tablet] Acetaminophen 1,000 mg PO Q6HP PRN 11/19/19 11/19/19 History Height: 1.5 m Weight: 68.583 kg Laboratory Results:: Laboratory Results - last 24 hr 11/19/19 13:23: WBC 17.7 H, RBC 4.11 L, Hgb 11.2 L, Hct 35.4 L, MCV 86.2, MCH 27.2, MCHC 31.6 L, RDW 18.5 H, Plt Count 495 H, MPV 7.1 L, Neut % (Auto) 84.0 H, Lymph % (Auto) 11.0, Foster % (Auto) 3.7, Eos % (Auto) 0.1, Baso % (Auto) 1.2, Neut # (Auto) 14.8 H, Lymph # (Auto) 1.9, Foster # (Auto) 0.7, Eos # (Auto) 0.0, Baso # (Auto) 0.2, Total Counted 100, Neutrophils % (Manual) 79 H, Lymphocytes % (Manual) 19, Monocytes % (Manual) 2, Platelet Estimate Normal, Anisocytosis 1+ 11/19/19 13:23: PT 38.2 H, INR 4.07 H, APTT 69.4 H* D 11/19/19 13:23: Sodium 136, Potassium 3.9, Chloride 89 L, Carbon Dioxide 17 L, Anion Gap 33.9 H, BUN 20 H, Creatinine 1.10 H, Estimated Creat Clear 64, Estimated GFR 52 L, Est GFR ( Amer) 63, Glucose 155 H, Calcium 10.4 H, Total Bilirubin 0.5, AST 40 H, ALT 36, Alkaline Phosphatase 128 H, Total Protein 9.7 H, Albumin 4.5, Globulin 5.2 H, Albumin/Globulin Ratio 0.9 L 11/19/19 13:23: ESR 19 11/19/19 13:23: C-Reactive Protein 200.5 H 11/19/19 13:23: Hemoglobin A1c 6.8 H 11/19/19 13:30: SARS-CoV-2 IgG Ab (Rapid) Negative, SARS-CoV-2 IgM Ab (Rapid) Negative 11/19/19 16:50: POC Glucose 257 H
--- NOTE | 2019-11-20 11:39 | PC.NURSE ---
pt to surgery for revision of R BKA
--- NOTE | 2019-11-20 13:47 | P.PN_ITS ---
[facility] Anesthesia Checklist - Patient Identification Patient Identification: Arm Band - Structural Data Admitted From: Inpatient Planned Operative Procedure/s: right AKA Consent for Planned Operative Procedure(s) Verified: Yes Verified Documents: Surgical Consent, History and Physical - NPO Status Verified Time NPO: 00:00 - Additional verifications Anesthesia Reactions: No Hx Blood Transfusions: No Blood Transfusion Reaction: No - Airway Assessment C-Spine Mobility Assessed: Yes (mp2) TMJ Mobility Assessed: Yes Dentition: Poor Dentition - Neurological Assessment Level of Consciousness: Awake, Alert - Anesthesia Plan Anesthesia Risk discussed: Yes Anesthesia Plan: Verified ASA Class: III Anesthesia Type: General [facility] History Medical History: Reports:: Arrhythmia, Atherosclerotic Heart Disease, Cancer (breast), Carotid Stenosis, Congestive Heart Failure, Coronary Artery Disease, Cerebrovascular Accident, Deep Vein Thrombosis, Depression, Diabetes Mellitus Type 2, Gall Bladder Disease, Heart Murmur, Hyperlipidemia, Hypertension, MRSA, Myocardial Infarction, Peripheral Artery Disease, Peripheral Vascular Disease, Renal Disease, Renal Insufficiency, Transient Ischemic Attacks (TIA), Urinary Tract Infection Denies:: Asthma, Chronic Obstructive Pulmonary Disease (COPD), Diabetes Mellitus Type 1, Internal Pacemaker, Lung Disease, Seizures *Have you ever received a pneumonia vaccine?: Yes *Have you received a flu vaccine this season?: No Other Medical History: Reports: Anemia, Arthritis, Chemotherapy, Sinus Problems, Other. Denies: Blood Transfusion Reaction Anesthesia experience/problems:: nac Laterality Cases: Left: Lumpectomy, Right: Carpal Tunnel Release, Mastectomy, Other Other Surgeries: Yes: Appendectomy, CABG (with 4 vessels repaired ), Cancer Surgery, Cardiac Catheterization, Cardiac Surgery, Cholecystectomy, Colonoscopy, Coronary Stent (legs ), , Hernia Repair, Open Heart Surgery, Tubal Ligation, Other (amputee left leg and right toes, stent to right leg). No: Pacemaker Amputation: Yes (LEFT BKA, RIGHT TOES AND PARITAL RIGHT FOOT AMPUTATIONS) Fractures: No - *Social History Educational Level: Attended College Smoking Status: Never smoker # Packs/Day (cigarettes): 0 #Yrs smoked (if former smoker): 0 Alcohol Intake: never Alcohol Intake Frequency:: other Substance Use Type: denies use *Occupational Status:: disabled Housing: [facility] Household Members: caregiver *Travel in the last 8 weeks: None - Psychiatric History Pschychiatric History:: Reports:: Depression Family Hx:: Cancer, Diabetes, Heart Attack, Hyperlipidemia, Hypertension
--- NOTE | 2019-11-20 14:24 | HMH.ANESI ---
[facility] Anesthesia Record Part I Intake, IV Amount: 1,400 Estimated blood loss (mL): 200 Urine output (mL): 900 Blood Pressure: 111/57 SaO2: 100 Pulse Rate: 85 Respiratory Rate: 16 Temperature: 97.9 F Patient is:: Drowsy, Stable Stable to PACU at:: 14:20
[2019-11-20 14:35] LABS: POC Glucose,Bedside 166 (70-110)
--- NOTE | 2019-11-20 14:43 | HMH.OPNOTE ---
Date of procedure: 11/20/19 Pre-op Diagnosis:: 1) R BKA stump infection 2) arterial insufficiency RLE 3) chronic poorly-controlled diabetes mellitus Post-op Diagnosis:: 1) R BKA stump infection 2) arterial insufficiency RLE 3) chronic poorly-controlled diabetes mellitus Procedure performed:: R above-knee amputation (AKA) Surgeon:: Leanna Clark MD Snailer(s):: MIKAELA Villalba DIGITAL COMPOSER:: Bandar Dawn Anesthesia: GETA Estimated blood loss (mL): 200 Clinical Note:: 53yo F admitted from the office yesterday after she presented for routine follow-up and was suspected to have R BKA stump infection. She underwent R BKA on 10/30/19 after prior amputation of toes, followed by TMA and revision TMA for infection/failure to heal earlier this year. The BKA on 10/30/19 went well w/o complication and the tissues all appeared healthy. Wound cultures taken at that time were negative and pathology reported viable margins. She has been recovering in a local 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, where her INR has been elevated to 4.3. Her normal goal is 2-3. Last week she appeared to have hemmorrhagic blistering of the stump, and was sent for treatment with the wound care clinic. The patient reports persistent pain and inability for the leg to be touched, with increasing pain. No fevers or chills reported from the 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, no drainage reported from the stump, though it has developed a foul odor. On admission her WBC, ESR and CRP were markedly elevated; IV antibiotics were started. I spoke with the patient and her mother regarding her prognosis for healing the right BKA. I feel she has a combination of chronic arterial insufficiency due to microvascular disease from longstanding diabetes, in combination with superimposed infection and gangrenous changes. Even with aggressive wound debridement I feel her likelihood of salvaging the BKA is low and I recommended conversion to [id number] amputation. I discussed the risks of surgery including bleeding, need for postsurgical transfusion, infection, impaired wound healing, need for repeat surgical debridement or revision to a more proximal amputation level such as a hip disarticulation, phantom limb pain, and the risks of anesthesia. The patient and her mother vocalized understanding; informed consent was obtained for the procedure. Operative findings:: no clinical evidence of infection in R thigh: no necrotic tissue, no purulent fluid. Ample blood flow with patent profunda femoris. culture swabs taken of stump + amputated limb sent for path Operative note:: The patient was identified in preoperative holding and the right leg signed by myself. Consent was verified with the patient and all questions answered. She was then transferred to the OR and placed supine on the operative table with a bump under the R hip; no tourniquet was applied. She has been on 3 antibiotics (2 IV + 1 oral) since admission; these were not redosed prior to surgery. General endotracheal anesthesia was induced; once the patient was asleep, a Gottlieb catheter was placed. The L BKA stump was well-padded. The right lower extremity was then prepped and draped in the usual sterile fashion for an above-knee amputation. Timeout was performed, identifying the correct patient, the correct procedure, and correct site. The procedure was begun by first using a marking pen to draw out my desired incisions on the right thigh. A fishmouth incision was planned with equal anterior and posterior flaps, the apex drawn at the level of the desired bone cut. The expected bone cut was measured around 10 cm proximal to the knee joint. Equal anterior-posterior fishmouth flaps were then drawn. Incision was made with a #10 blade through the skin along these lines. Soft tissue was then dissected perpendicular to the skin incision deeper, using electrocautery. Cautery was used on the muscles and subcutaneous tissue to decrease bleeding. All tissue appeared to be healthy and
--- NOTE | 2019-11-20 14:52 | P.PN_ITS ---
Subjective Date: 11/20/19 Time: 15:00 Principal diagnosis: R AKA Interval history: patient underwent R AKA this afternoon without complication. INR was 3 this morning, decreased to 1.8 after 10mg vitamin K. 1 unit FFP given in OR. EBL 200cc, 1400cc NS given, 900cc UOP. RICO drain placed in OR, plaster splint applied to RLE. PN: Obj Ex Vital signs: Temp Pulse Resp BP Pulse Ox 97.9 F 89 16 135/75 100 11/20/19 14:26 11/20/19 14:40 11/20/19 14:40 11/20/19 14:40 11/20/19 14:40 - Constitutional no acute distress - Routine HEENT Exam Head: Present: normocephalic Eye: Present: EOMI ENT: Present: mucous membranes moist - Routine Respiratory Exam Present: CTA bilaterally - Routine Cardiovascular Exam Present: RRR - Routine Abdominal Exam Present: soft. 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 Status: Chronic Current Visit: No (6) Obesity (BMI 30.0-34.9) Status: Chronic Current Visit: No (7) Type 2 diabetes mellitus with diabetic neuropathy, with long-term current use of insulin Status: Chronic Current Visit: No (8) Elevated INR Status: Acute Current Visit: Yes (9) Anemia Status: Chronic Current Visit: No (10) History of left below knee amputation Status: Chronic Current Visit: No (11) Peripheral arterial occlusive disease Status: Chronic Current Visit: No Assessment and Plan for All Diagnoses:: 53yo F with chronic non-healing ulcers RLE, s/p R TMA with revision earlier this year; now with progressive wound necrosis, osteomyelitis + gangrene --> R BKA 10/30/19. POD 0 s/p R AKA. -- NWB RLE, elevate on pillows at all times, do not remove splint. Reinforce dressing as needed for strikethrough. Empty RICO drain once per shift and record output in I/O. -- continue IV antibiotics: tobramycin (to be dosed by pharmacy), ertapenem, zyvox -- lovenox tonight, restart warfarin tomorrow -- dispo planning: SNF
--- NOTE | 2019-11-20 15:07 | SUR.OPER ---
Patient did not receive pre operative antibiotic r/t scheduled antibiotic on the floor. Patient received Tobramycin 134.774 mg IVPB this am at 0417. She will start receiving Tobramycin 300 mg IVPB q36h tomorrow am at 0900. She also received ertapenem 1gm IVPB last night at 2014 and she receives ertapenem q24h, so she will receive that again tonight. She also received linezolid (Zyrox) po 600 mg at 0851; she receives this bid.
[2019-11-20 15:23] LABS: Hematocrit 23.3 % (37.0-47.0); Hemoglobin 7.6 g/dL (12.2-16.2)
--- NOTE | 2019-11-20 15:33 | PC.NURSE ---
CRITICAL H/H REPORTED TO OR TEAM FOR DR. EMANUEL. HARSHAD GO RN CALLED BACK STATING MD ORDERED TO TRANSFUSE 1 UNIT NOW AND THEN CHECK A 1 HOUR POST H/H.
[2019-11-20 16:13] LABS: Microscopic,Cath URINE MICROSCOPIC (MICROSCOPIC)
--- NOTE | 2019-11-20 16:13 | P.PN_ITS ---
[facility] Anesthesia Record Part II Discharge Time: 14:50 Destination: Medical Surgical Department PACU nurse assessment reviewed?: Yes Patient Condition:: Good Anesthesia Complications:: None Swallowing reflex intact?: Yes Cyanosis?: No Blood Pressure: 132/75 Pulse Rate: 85 Temperature: 97.8 F Mental Status: Alert & Oriented Pain level:: 0 Nausea and/or vomitting:: None Intake, IV Amount: 0
[2019-11-20 16:27] LABS: Appearance,Urine/Cath CLEAR (Clear); Bilirubin,Cath Negative (Negative); Blood, Urine/Cath Negative (Negative); Color,Urine/Cath YELLOW (Yellow); Glucose,Urine/Cath (UA) Negative (Negative); Ketones,Urine/Cath Negative (Negative); Leukocyte Esterase,Cath Negative (Negative); Nitrate,Cath Negative (Negative); PH,Urine/Cath 7.5 (5.0-8.5); Protein,Urine/Cath Negative (Negative); Specific Gravity, Urine/Cath 1.015 (1.005-1.030); Urobilinogen,Cath 0.2 EU/dl (0.2)
--- NOTE | 2019-11-20 16:40 | PC.NURSE ---
Addendum entered by Leah Constantino RN 11/20/19 17:12: THE 1715 POST OP VITAL WILL BE ADDED WITH BLOOD VITALS WELL Original Note: THE 1615 AND 1645 VITAL FOR POST OP WILL BE INCLUDED WITH BLOOD VITALS
[2019-11-20 16:44] LABS: Bacteria,Urine/Cath TRACE /lpf; Squamous Epithelial Ur./Cath Occasional #/hpf (0-5); WBC,Urine/Cath Occasional #/hpf (0-3)
--- NOTE | 2019-11-20 18:30 | PC.NURSE ---
Pt had revision of right BKA today by Dr. Clark. Revision resulted in right AKA. Post op RICO drain to RLE present. Minimal blood loss in drain. Pt reports minimal pain post op. Low H/H requiring transfusion of 1 unit PRBC. No issues noted with transfusion. Pt has been febrile all shift. Tmax 99.7 ax. Albright catheter present post op. UOP clear yellow. Will d/c albright cath tomorrow per Dr. Clark.
[2019-11-20 19:51] LABS: Hematocrit 27.4 % (37.0-47.0)
--- NOTE | 2019-11-20 20:48 | PC.NURSE ---
notified of pt's new h&h levels, noted at 9.0 & 27.4 at this time. she called back after consulting with pt's pcp and told this rn that the second unit of blood would be held off to be administered until another h&h was drawn in the am.
[2019-11-20 22:25] LABS: POC Glucose,Bedside 226 (70-110)
[2019-11-21] VITALS (7 sets, daily range): BP systolic 120–143; BP diastolic 49–84; PULSE 87–104; RESP 14–20; TEMP 36.6–38.2; O2SAT 90–98; BMI 29.9; BMI 29.7
[2019-11-21 00:08] LABS: POC Glucose,Bedside 209 (70-110)
--- NOTE | 2019-11-21 04:37 | PC.NURSE ---
A&O X4. PT C/O PAIN T/O SHIFT, AT HIGHEST 8/10 ON PAIN SCALE TO RIGHT LEG. ADMINISTERED PERCOCET AND DILAUDID PER MAR T/O SHIFT FOR PAIN RELIEF. PT STATES ADEQUATE PAIN RELIEF FROM BOTH PERCOCET AND DILAUDID. KEPT BILATERAL LOWER LIMBS ELEVATED ON PILLOWS. Q2H TURN. DSG TO RIGHT LOWER LIMB NOTED C/D/I. ADEQUATE AMT BRIGHT RED DRAINAGE NOTED FROM RICO DRAIN. BILATERAL LUNG SOUNDS NOTED CLEAR UPON AUSCULTATION. TOLERATED RA WELL, SATS NOTED AT 96% RA. NO C/O SOA. EGGCRATE MATTRESS REMAINS IN PLACE. VSS. REMAINS SAFE. CALL LIGHT WITHIN REACH. WILL CONTINUE TO MONITOR.
[2019-11-21 05:41] LABS: POC Glucose,Bedside 129 (70-110)
[2019-11-21 06:12] LABS: Basophils # 0.1 K/mm3 (0-0.2); Basophils % 0.4 % (0.1-2.0); Eosinophils # 0.1 K/mm3 (0.0-0.4); Eosinophils % 0.4 % (0.1-12.0); Hematocrit 26.7 % (37.0-47.0); Hemoglobin 8.8 g/dL (12.2-16.2); Lymphocytes # 1.3 K/mm3 (0.7-4.5); Lymphocytes % 9.2 % (10-50); Mean Corpuscular HGB Conc 33.2 g/dL (31.8-35.4); Mean Corpuscular Hemoglobin 27.9 pg (27.0-31.2); Mean Corpuscular Volume 84.2 fl (81-99); Mean Platelet Volume 7.4 fl (7.4-10.4); Monocytes # 0.8 K/mm3 (0.1-1.0); Monocytes % 5.6 % (1.7-9.3); Neutrophils # 11.5 K/mm3 (1.8-7.8); Neutrophils % 84.3 % (37.0-80.0); Platelet Count 297 K/mm3 (142-424); Red Blood Count 3.17 M/mm3 (4.20-5.40); Red Cell Distribution Width 18.1 % (11.5-17.5); White Blood Count 13.6 K/mm3 (4.8-10.8)
[2019-11-21 06:29] LABS: Chloride 96 mmol/L (98-107); Potassium 3.7 mmoL/L (3.5-5.1); Sodium 134 mmol/L (136-145)
[2019-11-21 06:32] LABS: Anion Gap 10.7 mEq/L (5-15); Blood Urea Nitrogen 14 mg/dl (7-17); Calcium 8.4 mg/dl (8.4-10.2); Carbon Dioxide 31 mmol/L (22.0-30.0); Creatinine Clearance Estimated 79 mL/min (50-200); Estimated Glomerular Filt Rate 66 ml/min (>60); GFR (African American) 80 ML/MIN (>60); Glucose 132 mg/dl (74-100)
[2019-11-21 07:25] LABS: INR 1.09 (0.9-1.1); Prothrombin Time 11.1 seconds (9.4-11.8)
--- NOTE | 2019-11-21 08:21 | HMH.ACPN2 ---
Internal Medicine - PN: Subj *Date: 11/21/19 *Time: 08:21 Interval history: Patient with no new complaints today, still having pain in right thigh stump, asks for diet to be advanced. Exam Vital signs and Labs for Last 24 Hours: Temp Pulse Resp BP Pulse Ox 99.1 F 87 18 129/71 96 11/21/19 04:00 11/21/19 04:00 11/21/19 04:00 11/21/19 04:00 11/21/19 04:00 Laboratory Results - last 24 hr 11/20/19 07:47: Blood Type B Negative, Antibody Screen Negative, Crossmatch (AHG) See Detail 11/20/19 09:45: PT 18.3 H, INR 1.85 H 11/20/19 09:45: Random Tobramycin 4.6 11/20/19 10:47: POC Glucose 138 H 11/20/19 12:20: Urine Color Yellow, Urine Appearance Clear, Urine pH 7.5, Ur Specific [place] 1.015, Urine Protein Negative, Urine Glucose (UA) Negative, Urine Ketones Negative, Urine Blood Negative, Urine Nitrate Negative, Urine Bilirubin Negative, Urine Urobilinogen 0.2, Ur Leukocyte Esterase Negative, Urine WBC Occasional, Ur Squamous Epith Cells Occasional, Urine Bacteria Trace 11/20/19 14:33: POC Glucose 166 H 11/20/19 15:00: Hgb 7.6 L*, Hct 23.3 L* 11/20/19 16:53: POC Glucose 209 H 11/20/19 19:42: Hgb 9.0 L D, Hct 27.4 L 11/20/19 21:28: POC Glucose 226 H 11/21/19 05:09: POC Glucose 129 H 11/21/19 05:50: WBC 13.6 H, RBC 3.17 L, Hgb 8.8 L, Hct 26.7 L, MCV 84.2, MCH 27.9, MCHC 33.2, RDW 18.1 H, Plt Count 297, MPV 7.4, Neut % (Auto) 84.3 H, Lymph % (Auto) 9.2 L, [place] % (Auto) 5.6, Eos % (Auto) 0.4, Baso % (Auto) 0.4, Neut # (Auto) 11.5 H, Lymph # (Auto) 1.3, [place] # (Auto) 0.8, Eos # (Auto) 0.1, Baso # (Auto) 0.1 11/21/19 05:50: PT 11.1, INR 1.09 11/21/19 05:50: Sodium 134 L, Potassium 3.7 D, Chloride 96 L, Carbon Dioxide 31 H, Anion Gap 10.7, BUN 14 D, Creatinine 0.90, Estimated Creat Clear 79, Estimated GFR 66, Est GFR ( Amer) 80, Glucose 132 H, Calcium 8.4 Vital Signs - 24 hr 11/20/19 08:47 11/20/19 09:00 11/20/19 10:46 Temperature 98.3 F Pulse Rate Pulse Rate [Apical] Pulse Rate [Right Radial] 94 H 102 H Respiratory Rate Blood Pressure Blood Pressure [Right Arm] 106/63 L 02 Sat by Pulse Oximetry 11/20/19 12:16 11/20/19 12:21 11/20/19 12:26 Temperature 99.1 F 99.0 F 98.8 F Pulse Rate 77 75 75 Pulse Rate [Apical] Pulse Rate [Right Radial] Respiratory Rate 12 12 12 Blood Pressure 109/63 L 99/63 L 113/73 Blood Pressure [Right Arm] 02 Sat by Pulse Oximetry 100 100 100 11/20/19 12:29 11/20/19 13:29 11/20/19 14:20 Temperature 98.8 F 99.1 F 97.9 F Pulse Rate 76 83 Pulse Rate [Apical] 85 Pulse Rate [Right Radial] Respiratory Rate 12 12 16 Blood Pressure 111/72 120/80 Blood Pressure [Right Arm] 111/57 L 02 Sat by Pulse Oximetry 100 100 100 11/20/19 14:26 11/20/19 14:30 11/20/19 14:40 Temperature 97.9 F Pulse Rate 85 Pulse Rate [Apical] 87 89 Pulse Rate [Right Radial] Respiratory Rate 16 16 16 Blood Pressure 111/57 L Blood Pressure [Right Arm] 135/79 135/75 02 Sat by Pulse Oximetry 100 100 11/20/19 14:50 11/20/19 15:00 11/20/19 15:15 Temperature 97.8 F 99.1 F 99.1 F Pulse Rate Pulse Rate [Apical] 85 90 87 Pulse Rate [Right Radial] Respiratory Rate 16 19 18 Blood Pressure Blood Pressure [Right Arm] 132/75 139/67 123/53 L 02 Sat by Pulse Oximetry 100 97 99 11/20/19 15:30 11/20/19 15:45 11/20/19 16:00 Temperature 99.2 F 99.4 F 99.5 F Pulse Rate 88 Pulse Rate [Apical] 89 89 Pulse Rate [Right Radial] Respiratory Rate 18 18 17 Blood Pressure 124/49 L Blood Pressure [Right Arm] 125/61 127/51 L 02 Sat by Pulse Oximetry 99 99 100 11/20/19 16:15 11/20/19 16:15 11/20/19 16:20 Temperature 99.7 F H 97.8 F 99.4 F Pulse Rate 93 H 85 90 Pulse Rate [Apical] Pulse Rate [Right Radial] Respiratory Rate 18 18 Blood Pressure 129/53 L 132/75 122/53 L Blood Pressure [Right Arm] 02 Sat by Pulse Oximetry 98 99 11/20/19 16:25 11/20/19 16:30 11/20/19 16:45 Temperature 98.9 F 99.1 F 99.1 F Pulse Rate 92 H 93 H 93 H Pu
--- NOTE | 2019-11-21 11:25 | P.PN_ITS ---
Subjective Date: 11/21/19 Time: 10:00 Principal diagnosis: R AKA Interval history: The patient is doing well this morning, resting comfortably on arrival. She has had pain in the R leg overnight but has been manageable with pain medication. AFVSS, no strikethrough on dressings. 10cc drainage from RICO overnight. Received 1 unit PRBC last night; Hgb 8.8 this morning. INR 1.09; warfarin to be resumed today. PN: Obj Ex Vital signs: Temp Pulse Resp BP Pulse Ox 97.8 F 88 20 143/84 H 98 11/21/19 08:00 11/21/19 10:14 11/21/19 10:14 11/21/19 08:00 11/21/19 10:14 - Constitutional no acute distress - Routine Respiratory Exam Absent: respiratory distress - Routine Cardiovascular Exam Present: RRR - Routine Extremities Exam Comments: R AKA dressings/splint intact, no strikethrough RICO drain in place with scant sanguinous output R leg elevated on pillows, ROM hip deferred - Urinary Catheter Management Gottlieb Cath placed during this visit: no Progress Note: A&P (1) Gangrene Status: Acute Current Visit: Yes (2) Arterial insufficiency of lower extremity Status: Acute Current Visit: No (3) Fever Status: Acute Current Visit: No (4) History of CVA (cerebrovascular accident) Status: Chronic Current Visit: No (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 Status: Chronic Current Visit: No (6) Obesity (BMI 30.0-34.9) Status: Chronic Current Visit: No (7) Type 2 diabetes mellitus with diabetic neuropathy, with long-term current use of insulin Status: Chronic Current Visit: No (8) Elevated INR Status: Acute Current Visit: Yes (9) Anemia Status: Chronic Current Visit: No (10) History of left below knee amputation Status: Chronic Current Visit: No (11) Peripheral arterial occlusive disease Status: Chronic Current Visit: No (12) Hemiparesis affecting left side as late effect of cerebrovascular accident Status: Chronic Current Visit: No Assessment and Plan for All Diagnoses:: 53yo F with chronic non-healing ulcers RLE, s/p R TMA with revision earlier this year; experienced progressive wound necrosis, osteomyelitis + gangrene --> R BKA 10/30/19. BKA stump developed gangrene as well; POD 1 s/p R AKA. -- NWB RLE, elevate on pillows at all times, do not remove splint. Reinforce dressing as needed for strikethrough. Empty RICO drain once per shift and record output in I/O. -- continue IV antibiotics: tobramycin (to be dosed by pharmacy), ertapenem, zyvox -- lovenox started, warfarin to restart today; watch INR closely and avoid supratherapeutic INR -- pre-operative anemia noted, worsened after surgery; Hgb 8.8 this morning after 1 unit PRBC last night. Will continue to monitor closely. -- dispo planning: [facility]
--- NOTE | 2019-11-21 11:48 | CARE MANAGER ---
Spoke with patient and sister. Patient stated three times she wishes to return to [facility] at discharge. The family would rather the patient choose somewhere else, but this is where she wants to go. GLENDA Rush
[2019-11-21 12:01] LABS: POC Glucose,Bedside 214 (70-110)
--- NOTE | 2019-11-21 15:56 | PC.NURSE ---
Pt has been pleasant and cooperative this shift. A&O X4. Pt has had frequent complaints of pain and has been medicated with Percocet, Tylenol, and Dilaudid per MAR with favorable results. RT stump surgical dressing/JONO bandage noted to be c/d/i. RT stump RICO drain has had minimal amounts of blood thus far this shift. RT stump elevated with pillows. F/C DC'd this shift with 1400 ML of clear, yellow urine. Purwick in place at this time. FSBS result @ 1130 was 214 and required 7 units insulin per MAR. Diet order has been changed to Diabetic although, appetite has been poor today and pt reports that she feels too tired to eat a whole lot . Pt has been turned/repositioned Q2H this shift. Lovenox for VTE. 20 G peripheral IV in the LT forearm is patent and infusing LR @ 75 ML/HR. Lungs CTA. VSS. Call light within reach. Will continue to monitor.
[2019-11-21 16:47] LABS: POC Glucose,Bedside 78 (70-110)
[2019-11-21 17:11] LABS: Tobramycin,Random 6.6 ug/ml
--- NOTE | 2019-11-21 19:11 | INFXCTL.NOTE ---
report given to kelli
[2019-11-21 20:33] LABS: POC Glucose,Bedside 133 (70-110)
[2019-11-21 23:49] LABS: Tobramycin,Random 2.1 ug/ml
[2019-11-22] VITALS (16 sets, daily range): BP systolic 99–142; BP diastolic 53–75; PULSE 80–99; RESP 14–24; TEMP 36.6–37.6; O2SAT 94–99; BMI 30.5
--- NOTE | 2019-11-22 03:52 | PC.NURSE ---
Addendum entered by Andree Puri RN 11/22/19 03:57: PURWICK CATH REMAINS IN PLACE. ADEQUATE URINE OUTPUT NOTED. URINE CLEAR AND BRIGHT YELLOW. Original Note: A&O X4. PT RESTED WELL WITH EYES CLOSED T/O SHIFT. NO ACUTE CHANGES NOTED FROM PREVIOUS SHIFT. C/O MODERATE PAIN TO RLE, WELL CONTROLLED WITH TYLENOL X1 AND DILAUDID X1 PER MAR THUS FAR PER PT REQUEST. DSG TO RLE NOTED C/D/I. RICO DRAIN IS DRAINING ADEQUATELY WITH MINIMAL DRAINAGE NOTED THUS FAR. BLE REMAIN ELEVATED ON PILLOWS. Q2H TURNS. PT REFUSED PM SNACK, STATES SHE ATE A LARGE DINNER. VSS. REMAINS SAFE. CALL LIGHT WITHIN REACH. WILL CONTINUE TO MONITOR.
[2019-11-22 06:42] LABS: Basophils # 0.1 K/mm3 (0-0.2); Basophils % 0.7 % (0.1-2.0); Eosinophils # 0.2 K/mm3 (0.0-0.4); Eosinophils % 1.3 % (0.1-12.0); Hematocrit 25.5 % (37.0-47.0); Hemoglobin 8.5 g/dL (12.2-16.2); Lymphocytes % 15.9 % (10-50); Mean Corpuscular HGB Conc 33.3 g/dL (31.8-35.4); Mean Corpuscular Hemoglobin 28.1 pg (27.0-31.2); Mean Corpuscular Volume 84.4 fl (81-99); Mean Platelet Volume 6.9 fl (7.4-10.4); Monocytes # 0.9 K/mm3 (0.1-1.0); Monocytes % 7.2 % (1.7-9.3); Neutrophils # 9.4 K/mm3 (1.8-7.8); Neutrophils % 74.8 % (37.0-80.0); Platelet Count 277 K/mm3 (142-424); Red Blood Count 3.02 M/mm3 (4.20-5.40); Red Cell Distribution Width 18.3 % (11.5-17.5); White Blood Count 12.5 K/mm3 (4.8-10.8)
[2019-11-22 06:43] LABS: Chloride 92 mmol/L (98-107); Potassium 3.5 mmoL/L (3.5-5.1); Sodium 131 mmol/L (136-145)
[2019-11-22 06:46] LABS: Anion Gap 10.5 mEq/L (5-15); Blood Urea Nitrogen 12 mg/dl (7-17); Carbon Dioxide 32 mmol/L (22.0-30.0); Creatinine Clearance Estimated 72 mL/min (50-200); Estimated Glomerular Filt Rate 58 ml/min (>60); GFR (African American) 71 ML/MIN (>60)
[2019-11-22 06:47] LABS: Calcium 8.3 mg/dl (8.4-10.2); Glucose 180 mg/dl (74-100)
[2019-11-22 06:52] LABS: C-Reactive Protein 246.4 mg/L (0-4)
[2019-11-22 07:12] LABS: INR 0.95 (0.9-1.1); Prothrombin Time 9.8 seconds (9.4-11.8)
[2019-11-22 07:14] LABS: POC Glucose,Bedside 181 (70-110)
--- NOTE | 2019-11-22 08:39 | HMH.ACPN2 ---
Internal Medicine - PN: Subj *Date: 11/22/19 *Time: 08:39 Interval history: Patient feels a little better today, still having pain at right AKA surgery site, RICO drain was removed this morning. Exam Vital signs and Labs for Last 24 Hours: Temp Pulse Resp BP Pulse Ox 98.8 F 90 24 142/60 H 99 11/22/19 04:00 11/22/19 04:00 11/22/19 04:00 11/22/19 04:00 11/22/19 04:00 Laboratory Results - last 24 hr 11/21/19 11:40: POC Glucose 214 H 11/21/19 15:23: Random Tobramycin 6.6 11/21/19 16:38: POC Glucose 78 11/21/19 20:00: POC Glucose 133 H 11/21/19 23:20: Random Tobramycin 2.1 11/22/19 05:51: WBC 12.5 H, RBC 3.02 L, Hgb 8.5 L, Hct 25.5 L, MCV 84.4, MCH 28.1, MCHC 33.3, RDW 18.3 H, Plt Count 277, MPV 6.9 L, Neut % (Auto) 74.8, Lymph % (Auto) 15.9, [place] % (Auto) 7.2, Eos % (Auto) 1.3, Baso % (Auto) 0.7, Neut # (Auto) 9.4 H, Lymph # (Auto) 2.0, [place] # (Auto) 0.9, Eos # (Auto) 0.2, Baso # (Auto) 0.1 11/22/19 05:51: PT 9.8, INR 0.95 11/22/19 05:51: Sodium 131 L, Potassium 3.5, Chloride 92 L, Carbon Dioxide 32 H, Anion Gap 10.5, BUN 12, Creatinine 1.00, Estimated Creat Clear 72, Estimated GFR 58 L, Est GFR ( Amer) 71, Glucose 180 H, Calcium 8.3 L, C-Reactive Protein 246.4 H 11/22/19 05:52: POC Glucose 181 H Vital Signs - 24 hr 11/21/19 10:14 11/21/19 12:00 11/21/19 16:00 Temperature 100.7 F H 99.8 F H Pulse Rate [Apical] 88 87 104 H Pulse Rate [Right] Respiratory Rate 20 16 20 Blood Pressure [Right Arm] 120/49 L 130/77 02 Sat by Pulse Oximetry 98 91 L 92 L 11/21/19 19:35 11/22/19 00:00 11/22/19 00:25 Temperature 98.3 F 99.1 F Pulse Rate [Apical] Pulse Rate [Right] 91 H 99 H Respiratory Rate 14 16 Blood Pressure [Right Arm] 127/71 119/72 02 Sat by Pulse Oximetry 90 L 95 95 11/22/19 04:00 Temperature 98.8 F Pulse Rate [Apical] Pulse Rate [Right] 90 Respiratory Rate 24 Blood Pressure [Right Arm] 142/60 H 02 Sat by Pulse Oximetry 99 I & O for Last 24 hours: Intake & Output 11/19/19 11/20/19 11/21/19 11/22/19 23:59 23:59 23:59 23:59 Intake Total 840 / 910 3131.56 / 3131.56 3423 / 3423 840 / 840 Output Total 1075 / 1475 2220 / 2220 1505 / 1505 Balance 840 / 910 2056.56 / 1656.56 1203 / 1203 -665 / -665 Weight 148 lb 9 oz 151 lb 3.2 oz 147 lb 11.355 oz 151 lb 7 oz Microbiology Reports for the Last 24 Hours: Microbiology 11/20/19 13:00 Leg,Right - Deep Gram Stain - Final 11/20/19 13:00 Leg,Right - Deep Wound Culture - Preliminary NO GROWTH AFTER 24 HOURS - Constitutional no acute distress - *Routine Respiratory Exam Present: CTA bilaterally - *Routine Cardiovascular Exam Present: RRR Assessment and Plan (1) Gangrene Current visit: Yes Status: Acute Category: Medical Code(s): I96 - Gangrene, not elsewhere classified (2) Arterial insufficiency of lower extremity Current visit: No Status: Acute Category: Medical Code(s): I73.9 - Peripheral vascular disease, unspecified (3) Fever Current visit: No Status: Acute Category: Medical Code(s): R50.9 - Fever, unspecified (4) History of CVA (cerebrovascular accident) Current visit: No Status: Chronic Category: Medical Code(s): Z86.73 - Personal history of transient ischemic attack (TIA), and cerebral infarction without residual deficits (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
--- NOTE | 2019-11-22 11:04 | HMH.PHACONS ---
- Pharmacy Consult Date: 11/22/19 Time: 11:04 Referring provider: DR. EMANUEL Reason for Consult:: TOBRAMYCIN LEVELS Allergies and ADEs:: Allergies Allergy/AdvReac Type Severity Reaction Status Date / Time azithromycin Allergy Intermediate S-DIFF. Verified 11/19/19 09:58 BREATHING daptomycin [DAPTOMYCIN] Allergy Intermediate I-RASH/ITCH Verified 11/19/19 09:58 ING levofloxacin Allergy Intermediate I-RASH Verified 11/19/19 09:58 Penicillins Allergy Intermediate I-HIVES Verified 11/19/19 09:58 Home Medications:: Home Medications Medication Instructions Recorded Confirmed Type amiloride 5 mg tablet 5 mg PO DAILY 09/22/17 11/19/19 History baclofen 10 mg tablet 10 mg PO DAILY 09/22/17 11/19/19 History clopidogrel 75 mg tablet 75 mg PO HS 09/22/17 11/19/19 History glimepiride 2 mg tablet 2 mg PO DAILY 09/22/17 11/19/19 History metolazone 5 mg tablet 5 mg PO DAILY 09/22/17 11/19/19 History Donepezil HCl [Aricept 5mg 5 mg PO HS 04/14/18 11/19/19 History Tablet] Potassium Chloride 60 meq PO TID 04/14/18 11/20/19 History Spironolactone [Aldactone 25mg 25 mg PO DAILY 04/14/18 11/19/19 History Tab] Metoprolol Tartrate [Lopressor 12.5 mg PO DAILY 05/09/19 11/19/19 History 25mg tablet] Loratadine [Claritin] 10 mg PO DAILY 05/10/19 11/19/19 History Cholecalciferol (Vitamin D3) 4,000 units PO DAILY 07/23/19 11/19/19 History [Vitamin D3] Insulin Lispro [HumaLOG 100 0 unit SQ ACHS 07/23/19 11/19/19 History units/mL 3mL vial (SSI)] Acetaminophen [Acetaminophen Extra 500 mg PO TID #0 08/15/19 11/19/19 History Strength] Baclofen 20 mg PO HS 08/15/19 11/19/19 History Linagliptin/Metformin HCl 1 tab PO BID 08/15/19 11/19/19 History [Jentadueto 2.5 mg-1000 mg Tab] Saccharomyces Boulardii [Florastor] 250 mg PO DAILY #0 08/15/19 11/19/19 History Warfarin Sodium 5 mg PO DAILY 09/11/19 11/19/19 History linezolid 600 mg tablet 600 mg PO BID 09/11/19 11/19/19 History Cyanocobalamin (Vitamin B-12) 500 mcg PO DAILY 10/10/19 11/19/19 History [Vitamin B-12] Ferrous Sulfate [Ferrous Sulfate 325 mg PO TID 10/10/19 11/19/19 History 325mg Tablet] Furosemide [Furosemide 40MG tAB] 40 mg PO DAILY 10/10/19 11/19/19 History Insulin Detemir [Levemir 60 unit SQ BID 10/10/19 11/19/19 History 100units/mL 3mL flexpen] Multivitamin 1 each PO DAILY 10/10/19 11/19/19 History Atorvastatin Calcium [Atorvastatin 40 mg PO DAILY 10/26/19 11/19/19 History 40mg Tab] Calcium Carbonate [Tums Ultra 1,177 mg PO TID 10/27/19 11/19/19 History Strength] Oxycodone HCl/Acetaminophen 1 each PO Q6HP PRN #30 tab 11/01/19 11/19/19 Rx [Percocet 5/325mg tablet] Acetaminophen 1,000 mg PO Q6HP PRN 11/19/19 11/19/19 History Height: 1.5 m Weight: 68.691 kg Laboratory Results:: Laboratory Results - last 24 hr 11/21/19 11:40: POC Glucose 214 H 11/21/19 15:23: Random Tobramycin 6.6 11/21/19 16:38: POC Glucose 78 11/21/19 20:00: POC Glucose 133 H 11/21/19 23:20: Random Tobramycin 2.1 11/22/19 05:51: WBC 12.5 H, RBC 3.02 L, Hgb 8.5 L, Hct 25.5 L, MCV 84.4, MCH 28.1, MCHC 33.3, RDW 18.3 H, Plt Count 277, MPV 6.9 L, Neut % (Auto) 74.8, Lymph % (Auto) 15.9, [place] % (Auto) 7.2, Eos % (Auto) 1.3, Baso % (Auto) 0.7, Neut # (Auto) 9.4 H, Lymph # (Auto) 2.0, [place] # (Auto) 0.9, Eos # (Auto) 0.2, Baso # (Auto) 0.1 11/22/19 05:51: PT 9.8, INR 0.95 11/22/19 05:51: Sodium 131 L, Potassium 3.5, Chloride 92 L, Carbon Dioxide 32 H, Anion Gap 10.5, BUN 12, Creatinine 1.00, Estimated Creat Clear 72, Estimated GFR 58 L, Est GFR ( Amer) 71, Glucose 180 H, Calcium 8.3 L, C-Reactive Protein 246.4 H 11/22/19 05:52: POC Glucose 181 H Medical History: Reports:: Arrhythmia, Atherosclerotic Heart Disease, Cancer (breast), Carotid Stenosis, Congestive Heart Failure, Coronary Artery Disease, Cerebrovascular Accident, Deep Vein Thrombosis, Depression, Diabetes Mellitus Type 2, Gall Bladder Disease, Heart Murmur, Hyperlipidemia, Hypertension, MRS
[2019-11-22 11:51] LABS: POC Glucose,Bedside 248 (70-110)
--- NOTE | 2019-11-22 13:57 | P.PN_ITS ---
Subjective Date: 11/22/19 Time: 08:30 Principal diagnosis: R AKA Interval history: The patient is doing well this morning, pain present in R leg but decreased from pre-operatively. Remains AFVSS, still on IV antibiotics. RICO drain with 10-15cc out over each of the last 2 shifts. PN: Obj Ex Vital signs: Temp Pulse Resp BP Pulse Ox 97.9 F 94 H 20 134/75 96 11/22/19 08:00 11/22/19 09:00 11/22/19 09:00 11/22/19 08:00 11/22/19 09:00 - Constitutional no acute distress - Routine HEENT Exam Head: Present: normocephalic Eye: Present: EOMI ENT: Present: mucous membranes moist - Routine Respiratory Exam Absent: respiratory distress, wheezes - Routine Cardiovascular Exam Present: RRR - Routine Abdominal Exam Present: soft. Absent: distended - Routine Extremities Exam Comments: R AKA dressings/splint intact, no strikethrough RICO drain in place with scant sanguinous output R leg elevated on pillows, ROM hip deferred - Routine Skin Exam Present: warm - Routine Neurological Exam Present: alert, oriented X3, moving all extremities, normal tone, vision grossly intact, hearing grossly intact, normal speech. 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 Status: Chronic Current Visit: No (6) Obesity (BMI 30.0-34.9) Status: Chronic Current Visit: No (7) Type 2 diabetes mellitus with diabetic neuropathy, with long-term current use of insulin Status: Chronic Current Visit: No (8) Elevated INR Status: Acute Current Visit: Yes (9) Anemia Status: Chronic Current Visit: No (10) History of left below knee amputation Status: Chronic Current Visit: No (11) Peripheral arterial occlusive disease Status: Chronic Current Visit: No (12) Hemiparesis affecting left side as late effect of cerebrovascular accident Status: Chronic Current Visit: No Assessment and Plan for All Diagnoses:: 53yo F with chronic non-healing ulcers RLE, s/p R TMA with revision earlier this year; experienced progressive wound necrosis, osteomyelitis + gangrene --> R BKA 10/30/19. BKA stump developed gangrene as well; POD 2 s/p R AKA. -- NWB RLE, elevate on pillows at all times, do not remove splint. Reinforce dressing as needed for strikethrough. RICO drain pulled this morning. First dressing change to be performed this afternoon. -- continue IV antibiotics: tobramycin (to be dosed by pharmacy), ertapenem, zyvox -- lovenox started the night of surgery, warfarin restarted yesterday; watch INR closely -- dispo planning: SNF
--- NOTE | 2019-11-22 14:38 | PC.NURSE ---
Pt has been pleasant and cooperative this shift. A&O X4. Pt has only complained of pain X2 thus far. Pt has been medicated with Percocet and Tylenol per MAR with favorable results. No complaints of SOA. RT stump surgical dressing/JONO bandage noted to be c/d/i. RT stump RICO drain in place with minimal amounts of blood thus far this shift. RT stump elevated with pillows. Purwick in place at this time and draining clear, yellow urine. No BM this shift. FSBS result @ 1130 was 248 and required 7 units insulin per MAR. Pt has had an adequate appetite this shift and ate most of every meal. Pt has been turned/repositioned Q2H. Pt was lifted into the chair with a mechanical lift and remained in the chair for a few hours. Pt was also given a shower and received a total linen change. Lovenox for VTE. 20 G peripheral IV in the LT forearm is patent and infusing LR @ 75 ML/HR. Lungs CTA. VSS. Call light within reach. Will continue to monitor.
--- NOTE | 2019-11-22 16:12 | PC.NURSE ---
Pt has been pleasant and cooperative this shift. A&O X4. Pt has only complained of pain X2 thus far. Pt has been medicated with Percocet and Tylenol per MAR with favorable results. No complaints of SOA. RT stump surgical dressing/JONO bandage noted to be c/d/i. RICO drain removed this AM per Dr. Clark. RT stump elevated with pillows. Purwick in place at this time and draining clear, yellow urine. No BM this shift. FSBS result @ 1130 was 248 and required 7 units insulin per MAR. Pt has had an adequate appetite this shift and ate most of every meal. Pt has been turned/repositioned Q2H. Pt was lifted into the chair with a mechanical lift and remained in the chair for a few hours. Pt was also given a shower and received a total linen change. Lovenox for VTE. 20 G peripheral IV in the LT forearm is patent and infusing LR @ 75 ML/HR. Lungs CTA. VSS. Call light within reach. Will continue to monitor.
[2019-11-22 17:50] LABS: POC Glucose,Bedside 163 (70-110)
[2019-11-22 21:02] LABS: POC Glucose,Bedside 136 (70-110)
[2019-11-22 21:25] LABS: Hematocrit 28.2 % (37.0-47.0)
[2019-11-22 21:34] LABS: Hemoglobin 9.7 g/dL (12.2-16.2)
[2019-11-23] VITALS: BP 126/57; PULSE 80; RESP 20; TEMP 37; O2SAT 92
[2019-11-23 04:00] VITALS: BP 132/67; PULSE 77; RESP 18; TEMP 36.8; O2SAT 92
--- NOTE | 2019-11-23 04:13 | PC.NURSE ---
PAIN REPORTED TO RLE; TX WITH PERCOCET, TYLENOL AND DILUADID PER MAR; DILAUDID REPORTED TO BE THE MOST EFFECTIVE FOR PAIN. PT. HAS NOT C/O DIZZINESS, N/V/D, OR SOA.
[2019-11-23 05:23] LABS: POC Glucose,Bedside 119 (70-110)
[2019-11-23 05:50] VITALS: BMI 31.1
[2019-11-23 07:34] LABS: Basophils % 0.2 % (0.1-2.0); Eosinophils # 0.3 K/mm3 (0.0-0.4); Eosinophils % 2.4 % (0.1-12.0); Hematocrit 28.2 % (37.0-47.0); Hemoglobin 9.6 g/dL (12.2-16.2); Lymphocytes # 2.3 K/mm3 (0.7-4.5); Lymphocytes % 17.2 % (10-50); Mean Corpuscular Hemoglobin 28.4 pg (27.0-31.2); Mean Corpuscular Volume 83.7 fl (81-99); Mean Platelet Volume 7.4 fl (7.4-10.4); Monocytes # 0.7 K/mm3 (0.1-1.0); Monocytes % 5.3 % (1.7-9.3); Neutrophils # 10.1 K/mm3 (1.8-7.8); Platelet Count 270 K/mm3 (142-424); Red Blood Count 3.37 M/mm3 (4.20-5.40); Red Cell Distribution Width 18.1 % (11.5-17.5); White Blood Count 13.4 K/mm3 (4.8-10.8)
[2019-11-23 07:40] LABS: Chloride 93 mmol/L (98-107); Sodium 131 mmol/L (136-145)
[2019-11-23 07:43] LABS: Blood Urea Nitrogen 17 mg/dl (7-17); Calcium 8.7 mg/dl (8.4-10.2); Carbon Dioxide 28 mmol/L (22.0-30.0); Creatinine Clearance Estimated 82 mL/min (50-200); Estimated Glomerular Filt Rate 66 ml/min (>60); GFR (African American) 80 ML/MIN (>60); Glucose 94 mg/dl (74-100)
[2019-11-23 07:48] LABS: C-Reactive Protein 214.6 mg/L (0-4)
--- NOTE | 2019-11-23 07:53 | HMH.ACPN ---
Internal Medicine - PN: Subj *Date: 11/23/19 *Time: 07:53 Exam Vital signs and Labs for Last 24 Hours: Temp Pulse Resp BP Pulse Ox 98.2 F 77 18 132/67 92 L 11/23/19 04:00 11/23/19 04:00 11/23/19 04:00 11/23/19 04:00 11/23/19 04:00 Laboratory Results - last 24 hr 11/20/19 07:47: Blood Type B Negative, Antibody Screen Negative, Crossmatch (AHG) See Detail 11/22/19 11:28: POC Glucose 248 H 11/22/19 17:32: POC Glucose 163 H 11/22/19 20:37: POC Glucose 136 H 11/22/19 21:15: Hgb 9.7 L D, Hct 28.2 L 11/23/19 05:14: POC Glucose 119 H 11/23/19 07:25: WBC 13.4 H, RBC 3.37 L, Hgb 9.6 L, Hct 28.2 L, MCV 83.7, MCH 28.4, MCHC 34.0, RDW 18.1 H, Plt Count 270, MPV 7.4, Neut % (Auto) 75.0, Lymph % (Auto) 17.2, Glynn % (Auto) 5.3, Eos % (Auto) 2.4, Baso % (Auto) 0.2, Neut # (Auto) 10.1 H, Lymph # (Auto) 2.3, Glynn # (Auto) 0.7, Eos # (Auto) 0.3, Baso # (Auto) 0.0 11/23/19 07:25: Sodium 131 L, Potassium 4.0, Chloride 93 L, Carbon Dioxide 28, Anion Gap 14.0, BUN 17 D, Creatinine 0.90, Estimated Creat Clear 82, Estimated GFR 66, Est GFR ( Amer) 80, Glucose 94, Calcium 8.7 I & O for Last 24 hours: Intake & Output 11/20/19 11/21/19 11/22/19 11/23/19 23:59 23:59 23:59 23:59 Intake Total 3131.56 / 3131.56 3423 / 3423 2204 / 2204 1074 / 1074 Output Total 1075 / 1475 2220 / 2220 1505 / 1656 151 / 151 Balance 2056.56 / 1656.56 1203 / 1203 699 / 548 923 / 923 Weight 68.583 kg 67 kg 68.691 kg 69.938 kg Microbiology Reports for the Last 24 Hours: Microbiology 11/20/19 13:00 Leg,Right - Deep Gram Stain - Final 11/20/19 13:00 Leg,Right - Deep Wound Culture - Preliminary NO GROWTH AFTER 48 HOURS Assessment and Plan (1) Gangrene Current visit: Yes Status: Acute Category: Medical Code(s): I96 - Gangrene, not elsewhere classified (2) Arterial insufficiency of lower extremity Current visit: No Status: Acute Category: Medical Code(s): I73.9 - Peripheral vascular disease, unspecified (3) Fever Current visit: No Status: Acute Category: Medical Code(s): R50.9 - Fever, unspecified (4) History of CVA (cerebrovascular accident) Current visit: No Status: Chronic Category: Medical Code(s): Z86.73 - Personal history of transient ischemic attack (TIA), and cerebral infarction without residual deficits (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 Current visit: No Status: Chronic Category: Medical Code(s): 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 (6) Obesity (BMI 30.0-34.9) Current visit: No Status: Chronic Category: Medical Code(s): E66.9 - Obesity, unspecified (7) Type 2 diabetes mellitus with diabetic neuropathy, with long-term current use of insulin Current visit: No Status: Chronic Category: Medical Code(s): E11.40 - Type 2 diabetes mellitus with diabetic neuropathy, unspecified; Z79.4 - FPC (current) use of insulin (8) Elevated INR Current visit: Yes Status: Acute Category: Medical Code(s): R79.1 - Abnormal coagulation profile (9) Anemia Current visit: No Status: Chronic Qualifiers: Anemia type: unspecified type Qualified Code(s): D64.9 - Anemia, unspecified Category: Medical Code(s): D64.9 - Anemia, unspecified (10) History of left below knee amputation Current visit: No Status: Chronic Category: Medical Code(s): Z89.512 - Acquired absence of left leg below knee (11) Peripheral arterial occlusive disease Current visit: No Status: Chronic Category: Medical Code(s): I77.9 - Disorder of arteries and arterioles, unspecified (12) Hemiparesis affecting left side as late effect of cerebrovascular accident Current visit: No Status: Chronic Category: Medical Code(s): I69.354 - Hemiplegia and hemiparesis following cerebral infarction affecting left non-dominant side The patient's infection will respond to the chosen ABx?: Yes Is the patient receiving the right d
[2019-11-23 08:00] VITALS: BP 140/70; PULSE 73; RESP 20; TEMP 36.7; O2SAT 93
[2019-11-23 08:02] LABS: INR 0.96 (0.9-1.1); Prothrombin Time 9.9 seconds (9.4-11.8)
--- NOTE | 2019-11-23 08:57 | HMH.ACPN2 ---
Internal Medicine - PN: Kacie *Date: 11/23/19 *Time: 08:57 Interval history: Patient with no new complaints today. She has last pain in her stump today. Exam Vital signs and Labs for Last 24 Hours: Temp Pulse Resp BP Pulse Ox 98.0 F 73 20 140/70 93 L 11/23/19 08:00 11/23/19 08:00 11/23/19 08:00 11/23/19 08:00 11/23/19 08:00 Laboratory Results - last 24 hr 11/20/19 07:47: Blood Type B Negative, Antibody Screen Negative, Crossmatch (AHG) See Detail 11/22/19 11:28: POC Glucose 248 H 11/22/19 17:32: POC Glucose 163 H 11/22/19 20:37: POC Glucose 136 H 11/22/19 21:15: Hgb 9.7 L D, Hct 28.2 L 11/23/19 05:14: POC Glucose 119 H 11/23/19 07:25: WBC 13.4 H, RBC 3.37 L, Hgb 9.6 L, Hct 28.2 L, MCV 83.7, MCH 28.4, MCHC 34.0, RDW 18.1 H, Plt Count 270, MPV 7.4, Neut % (Auto) 75.0, Lymph % (Auto) 17.2, Glasscock % (Auto) 5.3, Eos % (Auto) 2.4, Baso % (Auto) 0.2, Neut # (Auto) 10.1 H, Lymph # (Auto) 2.3, Glasscock # (Auto) 0.7, Eos # (Auto) 0.3, Baso # (Auto) 0.0 11/23/19 07:25: PT 9.9, INR 0.96 11/23/19 07:25: Sodium 131 L, Potassium 4.0, Chloride 93 L, Carbon Dioxide 28, Anion Gap 14.0, BUN 17 D, Creatinine 0.90, Estimated Creat Clear 82, Estimated GFR 66, Est GFR ( Amer) 80, Glucose 94, Calcium 8.7, C-Reactive Protein 214.6 H Vital Signs - 24 hr 11/22/19 09:00 11/22/19 16:00 11/22/19 18:05 Temperature 98.1 F 98.9 F Pulse Rate 80 Pulse Rate [Apical] 94 H Pulse Rate [Right] 87 Respiratory Rate 20 18 14 Blood Pressure 118/59 L Blood Pressure [Right Arm] 127/72 02 Sat by Pulse Oximetry 96 97 97 11/22/19 18:15 11/22/19 18:20 11/22/19 18:25 Temperature 98.9 F 99.4 F 99.3 F Pulse Rate 81 80 82 Pulse Rate [Apical] Pulse Rate [Right] Respiratory Rate 14 14 14 Blood Pressure 103/55 L 99/63 L 113/53 L Blood Pressure [Right Arm] 02 Sat by Pulse Oximetry 97 95 98 11/22/19 18:30 11/22/19 18:45 11/22/19 19:00 Temperature 99.6 F 99.5 F 99.1 F Pulse Rate 82 81 80 Pulse Rate [Apical] Pulse Rate [Right] Respiratory Rate 14 14 14 Blood Pressure 113/54 L 110/53 L 101/55 L Blood Pressure [Right Arm] 02 Sat by Pulse Oximetry 94 L 94 L 96 11/22/19 19:15 11/22/19 20:15 11/22/19 21:15 Temperature 99.1 F 98.4 F 98.0 F Pulse Rate 80 84 83 Pulse Rate [Apical] Pulse Rate [Right] Respiratory Rate 14 20 20 Blood Pressure 113/53 L 136/70 111/64 Blood Pressure [Right Arm] 02 Sat by Pulse Oximetry 96 96 97 11/23/19 00:00 11/23/19 04:00 11/23/19 08:00 Temperature 98.6 F 98.2 F 98.0 F Pulse Rate Pulse Rate [Apical] Pulse Rate [Right] 80 77 73 Respiratory Rate 20 18 20 Blood Pressure Blood Pressure [Right Arm] 126/57 L 132/67 140/70 02 Sat by Pulse Oximetry 92 L 92 L 93 L I & O for Last 24 hours: Intake & Output 11/20/19 11/21/19 11/22/19 11/23/19 23:59 23:59 23:59 23:59 Intake Total 3131.56 / 3131.56 3423 / 3423 2204 / 2204 1434 / 1434 Output Total 1075 / 1475 2220 / 2220 1505 / 1656 151 / 151 Balance 2056.56 / 1656.56 1203 / 1203 699 / 548 1283 / 1283 Weight 151 lb 3.2 oz 147 lb 11.355 oz 151 lb 7 oz 154 lb 3 oz Microbiology Reports for the Last 24 Hours: Microbiology 11/20/19 13:00 Leg,Right - Deep Gram Stain - Final 11/20/19 13:00 Leg,Right - Deep Wound Culture - Preliminary NO GROWTH AFTER 48 HOURS - Constitutional no acute distress - *Routine HEENT Exam Head: Present: normocephalic Eye: Present: EOMI, PERRL ENT: Present: mucous membranes moist - *Routine Respiratory Exam Present: CTA bilaterally - *Routine Cardiovascular Exam Present: RRR - *Routine Extremities Exam Comments: dressing in place over right AKA surgical wound Assessment and Plan (1) Gangrene Current visit: Yes Status: Acute Category: Medical Code(s): I96 - Gangrene, not elsewhere classified (2) Arterial insufficiency of lower extremity Current visit: No Status: Acute Category: Medical Code(s): I73.9 - Peripheral v
--- NOTE | 2019-11-23 13:05 | HMH.ORTHPN ---
Subjective Date: 11/23/19 Time: 12:30 Principal diagnosis: R AKA Interval history: The patient continues to have pain in R AKA stump but medication helps. Otherwise no complaints. Remains AFVSS. PN: Obj Ex Vital signs: Temp Pulse Resp BP Pulse Ox 98.0 F 73 20 140/70 93 L 11/23/19 08:00 11/23/19 08:00 11/23/19 08:00 11/23/19 08:00 11/23/19 08:00 - Constitutional no acute distress - Routine HEENT Exam Head: Present: normocephalic Eye: Present: EOMI ENT: Present: mucous membranes moist - Routine Respiratory Exam Absent: respiratory distress, wheezes - Routine Cardiovascular Exam Present: RRR - Routine Abdominal Exam Present: soft. Absent: tenderness - Routine Extremities Exam Comments: R AKA dressings intact, no strikethrough R leg elevated on pillows, ROM hip intact 0-120 - Routine Skin Exam Present: warm - Routine Neurological Exam Present: alert, oriented X3, moving all extremities, normal tone, vision grossly intact, hearing grossly intact, normal speech. 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 Current Visit: No (6) Obesity (BMI 30.0-34.9) Status: Chronic Current Visit: No (7) Type 2 diabetes mellitus with diabetic neuropathy, with long-term current use of insulin Status: Chronic Current Visit: No (8) Elevated INR Status: Acute Current Visit: Yes (9) Anemia Status: Chronic Current Visit: No (10) History of left below knee amputation Status: Chronic Current Visit: No (11) Peripheral arterial occlusive disease Status: Chronic Current Visit: No (12) Hemiparesis affecting left side as late effect of cerebrovascular accident Status: Chronic Current Visit: No Assessment and Plan for All Diagnoses:: 53yo F with chronic non-healing ulcers RLE, s/p R TMA with revision earlier this year; experienced progressive wound necrosis, osteomyelitis + gangrene --> R BKA 10/30/19. BKA stump developed gangrene as well; POD 3 s/p R AKA. -- NWB RLE, elevate on pillows at all times. Change dressings daily. -- continue IV antibiotics: tobramycin (to be dosed by pharmacy), ertapenem, zyvox -- continue warfarin -- dispo planning: d/c back to SNF today with labs Tuesday. continue oral zyvox, add IM invanz. -- f/u with me 1 week
--- NOTE | 2019-11-23 13:18 | HMH.DCSUM ---
General - General Admission date:: 11/19/19 Discharge date: 11/23/19 HPI HPI: 53yo F admitted from the office 11/19/19 after she presented for routine follow-up and was suspected to have R BKA stump infection. She underwent R BKA on 10/30/19 after prior amputation of toes, followed by TMA and revision TMA for infection/failure to heal earlier this year. The BKA on 10/30/19 went well w/o complication and the tissues all appeared healthy. Wound cultures taken at that time were negative and pathology reported viable margins. She has been recovering in a local longterm, where her INR has been elevated to 4.3. Her normal goal is 2-3. Last week she appeared to have hemmorrhagic blistering of the stump, and was sent for treatment with the wound care clinic. The patient reports persistent pain and inability for the leg to be touched, with increasing pain. No fevers or chills reported from the longterm, no drainage reported from the stump, though it has developed a foul odor. On admission her WBC, ESR and CRP were markedly elevated; IV antibiotics were started. I spoke with the patient and her mother regarding her prognosis for healing the right BKA. I feel she has a combination of chronic arterial insufficiency due to microvascular disease from longstanding diabetes, in combination with superimposed infection and gangrenous changes. Even with aggressive wound debridement I feel her likelihood of salvaging the BKA is low and I recommended conversion to [id number] amputation. I discussed the risks of surgery including bleeding, need for postsurgical transfusion, infection, impaired wound healing, need for repeat surgical debridement or revision to a more proximal amputation level such as a hip disarticulation, phantom limb pain, and the risks of anesthesia. The patient and her mother vocalized understanding; informed consent was obtained for the procedure. Hospital Course Hospital Course: R AKA was performed on 11/20/19 without complication. EBL was moderate but surgery well-tolerated by the patient. Janay-operatively antibiotics were continued. Wound cultures have been negative throughout admission. Specimen sent for pathology. Labs responded appropriately to treatment and CRP decreased through admission. By POD 3 the patient was deemed medically appropriate for discharge and d/c back to [facility] in good condition. Objective Vital signs: Temp Pulse Resp BP Pulse Ox 98.0 F 73 20 140/70 93 L 11/23/19 08:00 11/23/19 08:00 11/23/19 08:00 11/23/19 08:00 11/23/19 08:00 - *Routine HEENT Exam Head: Present: normocephalic Eye: Present: EOMI ENT: Present: mucous membranes moist - *Routine Neck Exam Present: supple - *Routine Respiratory Exam Present: CTA bilaterally - *Routine Cardiovascular Exam Present: RRR - *Routine Abdominal Exam Present: soft. Absent: distended - *Routine Rectal Exam Comments: deferred - *Routine Exam Comments: deferred - *Routine Extremities Exam Comments: R AKA dressings intact, no strikethrough R leg elevated on pillows, ROM hip deferred - *Routine Skin Exam Present: warm - *Routine Neurological Exam Present: alert, oriented X3, moving all extremities, normal tone, vision grossly intact, hearing grossly intact, normal speech. Absent: sensory deficit, motor deficit, altered mental status Results Completed studies during hospitalization [Text1]: Laboratory Tests 11/19/19 11/19/19 11/19/19 13:23 13:23 13:23 WBC 17.7 H RBC 4.11 L Hgb 11.2 L Hct 35.4 L MCV 86.2 MCH 27.2 MCHC 31.6 L RDW 18.5 H Plt Count 495 H MPV 7.1 L Neut % (Auto) 84.0 H Lymph % (Auto) 11.0 Gregory % (Auto) 3.7 Eos % (Auto) 0.1 Baso % (Auto) 1.2 Neut # (Auto) 14.8 H Lymph # (Auto) 1.9 Gregory # (Auto) 0.7 Eos # (Auto) 0.0 Baso # (Auto) 0.2 Total Counted 100 Neutrophils % (Manual) 79 H Lymphocytes % (Manual) 19 Gregory
--- NOTE | 2019-11-23 13:57 | SW/DCPLANNER ---
PATIENT IS DISCHARGING BACK TO [facility] THIS AFTERNOON... I HAVE NOTIFIED THE FACILITY TO LET THEM KNOW... PATIENT REQUESTED TO GO BACK THERE...
[2019-11-23 16:55] LABS: POC Glucose,Bedside 99 (70-110)
[2019-11-23 16:55] LABS: POC Glucose,Bedside 104 (70-110)
== END 2019-11-23 18:00 | DRG 240 ==
PROVIDERS: Admitting Provider Orthopaedic Surgery; PCP Family Medicine; Visit Provider Orthopaedic Surgery
PROC: 0Y6C0Z2 Detachment at Right Upper Leg, Mid, Open Approach (ICD-10-PCS; CPT 27590; principal; 2019-11-20 11:00)
DX: T87.43 Infection of amputation stump, right lower extremity (principal); E11.52 Type 2 diabetes mellitus with diabetic peripheral angiopathy with gangrene; L03.115 Cellulitis of right lower limb; I69.354 Hemiplegia and hemiparesis following cerebral infarction affecting left non-dominant side; I70.261 Atherosclerosis of native arteries of extremities with gangrene, right leg; M86.161 Other acute osteomyelitis, right tibia and fibula; E11.69 Type 2 diabetes mellitus with other specified complication; E11.40 Type 2 diabetes mellitus with diabetic neuropathy, unspecified; Z79.4 Long term (current) use of insulin; Z79.01 Long term (current) use of 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; I50.9 Heart failure, unspecified; Z89.512 Acquired absence of left leg below knee; I11.0 Hypertensive heart disease with heart failure; I25.10 Atherosclerotic heart disease of native coronary artery without angina pectoris
CPT/HCPCS: 27590; 36415; 71046; 78315; 80048; 80053; 80200; 81001; 82962; 83036; 85007; 85014; 85018; 85025; 85610; 85651; 85730; 86140; 86328; 86850; 87070; 87075; 87205; 88307; 88311; 93005; 93926; 93971; 97163; 97597; 97598; A9503; J1335; J2405; J2710; P9016; P9017

== ENCOUNTER → 2019-12-03 12:09 | Outpatient (CLI) | payer MEDICARE, MEDICAID, SELFPAY ==
--- NOTE | 2019-12-03 12:14 | XR_ITS ---
PROCEDURE: XR FEMUR RT 2V CLINICAL INDICATION: rt above knee amp. Follow-up amputation COMPARISON: NM BONE 3 PHASE from 11/19/2019 FINDINGS: Status post above the knee amputation. Vascular stents are present with diffuse vascular calcification. Minimal osteoarthritic changes present at the hip Other findings:None. IMPRESSION: Status post above the knee amputation with mild osteoarthritis of the hip Dictated by: Almas Flynn MD 12/03/2019 13:36 Electronically signed by Almas Flynn MD in [place] 12/03/2019 13:36
== END ==
PROVIDERS: PCP Family Medicine; Visit Provider Orthopaedic Surgery
DX: Z89.611 Acquired absence of right leg above knee (principal)
CPT/HCPCS: 73552

== ENCOUNTER → 2020-10-31 13:49 | Outpatient (CLI) | payer MEDICARE, MEDICAID, SELFPAY ==
[2020-10-31 14:45] LABS: Albumin Level 4.3 g/dl (3.5-5.0); Anion Gap 9.1 mEq/L (5-15); Blood Urea Nitrogen 21 mg/dl (7-17); Calcium 9.1 mg/dl (8.4-10.2); Carbon Dioxide 33 mmol/L (22.0-30.0); Chloride 96 mmol/L (98-107); Estimated Glomerular Filt Rate 52 ml/min (>60); GFR (African American) 63 ML/MIN (>60); Glucose 338 mg/dl (74-100); Phosphorous 3.4 mg/dl (2.5-4.5); Potassium 5.1 mmoL/L (3.5-5.1); Sodium 133 mmol/L (136-145)
[2020-10-31 14:56] LABS: Intact Parathyroid Hormone 96.4 pg/mL (7.5-53.5)
[2020-11-04 10:36] LABS: Calcium, Ionized 5.2 mg/dL (4.5-5.6)
== END ==
PROVIDERS: Visit Provider Internal Medicine Nephrology
DX: N18.30 Chronic kidney disease, stage 3 unspecified (principal)
CPT/HCPCS: 36415; 80069; 82306; 82330; 83970

== ENCOUNTER → 2021-04-30 13:30 | Outpatient (CLI) | payer MEDICARE, MEDICAID, SELFPAY ==
[2021-04-30 14:09] LABS: Basophils % 0.7 % (0.1-2.0); Eosinophils # 0.1 K/mm3 (0.0-0.4); Eosinophils % 3.3 % (0.1-12.0); Hematocrit 42.8 % (37.0-47.0); Hemoglobin 14.2 g/dL (12.2-16.2); Lymphocytes # 1.5 K/mm3 (0.7-4.5); Lymphocytes % 37.2 % (10-50); Mean Corpuscular HGB Conc 33.3 g/dL (31.8-35.4); Mean Corpuscular Hemoglobin 31.4 pg (27.0-31.2); Mean Corpuscular Volume 94.4 fl (81-99); Mean Platelet Volume 9.8 fl (7.4-10.4); Monocytes # 0.2 K/mm3 (0.1-1.0); Monocytes % 5.9 % (1.7-9.3); Neutrophils # 2.1 K/mm3 (1.8-7.8); Neutrophils % 52.9 % (37.0-80.0); Platelet Count 210 K/mm3 (142-424); Red Blood Count 4.53 M/mm3 (4.20-5.40); Red Cell Distribution Width 15.2 % (11.5-17.5); White Blood Count 3.9 K/mm3 (4.8-10.8)
[2021-04-30 14:14] LABS: INR 1.68 (0.9-1.1); Prothrombin Time 18.3 seconds (10.1-12.5)
[2021-04-30 14:50] LABS: Chloride 100 mmol/L (98-107); Potassium 4.4 mmoL/L (3.5-5.1); Sodium 139 mmol/L (136-145)
[2021-04-30 14:52] LABS: Blood Urea Nitrogen 20 mg/dl (7-17); Estimated Glomerular Filt Rate 75 ml/min (>60); GFR (African American) 91 ML/MIN (>60)
[2021-04-30 14:53] LABS: Alanine Aminotransferase 58 U/L (12-78); Albumin Level 4.1 g/dl (3.5-5.0); Albumin/Globulin Ratio 1.2 (1.1-1.8); Alkaline Phosphatase 103 U/L (38-126); Anion Gap 15.4 mEq/L (5-15); Aspartate Amino Transferase 42 U/L (14-36); Bilirubin,Total 0.4 mg/dl (0.2-1.3); Carbon Dioxide 28 mmol/L (22.0-30.0); Cholesterol 232 mg/dl (140-200); Globulin 3.3 g/dL (1.3-3.2); Phosphorous 3.5 mg/dl (2.5-4.5); Total Protein,Serum 7.4 g/dl (6.3-8.2)
[2021-04-30 14:54] LABS: Calcium 8.9 mg/dl (8.4-10.2); Chol/HDL Ratio 10.1 (1-3.5); Glucose 375 mg/dl (74-100); HDL Cholesterol 23 mg/dl (40-60)
[2021-04-30 15:15] LABS: Hemoglobin A1C 10.1 % (4.0-6.0)
[2021-04-30 15:21] LABS: Triglycerides 948 mg/dl (30-150)
[2021-04-30 15:22] LABS: Direct LDL Cholesterol 48.27 mg/dL (100-129)
[2021-04-30 15:25] LABS: Thyroid Stimulating Hormone 1.96 uIU/mL (0.465-4.68)
[2021-04-30 15:35] LABS: 25-OH Vitamin D, Total 50.4 ng/mL (30-100)
== END ==
PROVIDERS: Visit Provider Family Medicine
DX: E11.22 Type 2 diabetes mellitus with diabetic chronic kidney disease (principal); N18.30 Chronic kidney disease, stage 3 unspecified; E78.2 Mixed hyperlipidemia; Z51.81 Encounter for therapeutic drug level monitoring; Z79.01 Long term (current) use of 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; Z86.718 Personal history of other venous thrombosis and embolism; Z79.4 Long term (current) use of insulin
CPT/HCPCS: 36415; 80053; 80061; 82306; 83036; 84100; 84443; 85025; 85610

== ENCOUNTER 2021-05-03 13:30 | Emergency (ER) | payer MEDICARE, MEDICAID, SELFPAY ==
[2021-05-03 13:45] VITALS: BP 112/62; PULSE 80; RESP 18; O2SAT 92
[2021-05-03 13:49] VITALS: BP 138/78; PULSE 80; RESP 18; TEMP 36.8; O2SAT 95; BMI 36.3
[2021-05-03 13:56] VITALS: BP 121/63; PULSE 76; O2SAT 98
--- NOTE | 2021-05-03 14:02 | XR_ITS ---
PROCEDURE INFORMATION: Exam: XR Chest Exam date and time: 05/03/2021 2:02 PM Age: 55 years old Clinical indication: Patient HX: Cough, covid positive. TECHNIQUE: Imaging protocol: XR of the chest. Views: 1 view. COMPARISON: CR XR CHEST 2V 11/19/2019 5:51 PM FINDINGS: Tubes, catheters and devices: There are sternal wires consistent with previous sternotomy incision. Lungs: Atelectatic changes noted within both lung bases. Pleural spaces: Unremarkable. No pleural effusion. No pneumothorax. Heart/Mediastinum: The heart demonstrates mild diffuse enlargement. Diaphragm: There is nonspecific elevation of the right hemidiaphragm. Bones/joints: Sclerotic density present along the proximal right humerus. Soft tissues: Surgical clips noted within the right axilla. IMPRESSION: 1. Atelectatic changes noted within both lung bases. 2. The heart demonstrates mild diffuse enlargement.
--- NOTE | 2021-05-03 14:05 | HMH.EDGENADL ---
ED Disposition Clinical Impression: Bronchitis due to COVID-19 virus Disposition: Home, Self-Care Condition on Discharge: Good Instructions: DI for COVID-19 (Suspected or Confirmed ) Referrals: Shawn Alva MD [Primary Care Provider] - - Critical Care Critical Care Time: No Attestation: On 05/03/21, the high probability of a clinically significant, sudden or life threatening deterioration of the following system(s) required my full and direct attention, intervention and personal management. The time I documented below is in addition to time spent performing reported procedures but includes the following listed in this critical care notation. Medical Decision Making - Medical Records Medical records reviewed: Yes: I reviewed the patient's medical records. - Carlo Inquiry Pt receiving controlled substance: No Vital Signs: 05/03/21 13:45 05/03/21 13:49 05/03/21 13:56 Temperature 98.3 F Temperature Source Oral Pulse Rate 80 76 Pulse Rate [Right Radial] 80 Respiratory Rate 18 18 Blood Pressure 112/62 121/63 Blood Pressure [Right Arm] 138/78 Blood Pressure Mean 80 Blood Pressure Mean [Right Arm] 98 Blood Pressure Source [Right Arm] Automatic Cuff Blood Pressure Position [Right Arm] Supine 02 Sat by Pulse Oximetry 92 L 95 98 Oxygen Delivery Method Room Air - Lab Data Lab Results 05/03/21 14:09: SARS-CoV-2 (PCR) Detected A, Influenza A Untype (PCR) Not detected, Influenza Type B (PCR) Not detected 05/03/21 14:37: WBC 6.0, RBC 4.60, Hgb 14.1, Hct 42.5, MCV 92.3, MCH 30.8, MCHC 33.3, RDW 15.5, Plt Count 240, MPV 9.6, Neut % (Auto) 55.5, Lymph % (Auto) 35.7, [place] % (Auto) 5.5, Eos % (Auto) 1.9, Baso % (Auto) 1.5, Neut # (Auto) 3.3, Lymph # (Auto) 2.1, [place] # (Auto) 0.3, Eos # (Auto) 0.1, Baso # (Auto) 0.1 05/03/21 14:37: Sodium 135 L, Potassium 4.8, Chloride 98, Carbon Dioxide 28, Anion Gap 13.8, BUN 25 H, Creatinine 0.90, Estimated Creat Clear 96, Estimated GFR 65, Est GFR ( Amer) 79, Glucose 269 H, Calcium 9.3 Result diagrams: 05/03/21 14:37 05/03/21 14:37 - Radiology Data #1 Image(s): Chest Image Reviewed: Yes I reviewed the patient's radiology results, Yes I reviewed the patient's radiology image, Yes I have reviewed radiologist's interpretation IMPRESSION: 1. Atelectatic changes noted within both lung bases. 2. The heart demonstrates mild diffuse enlargement. - Reevaluation(s) Time: 15:44 Reevaluation #1: On reevaluation, the patient is alert and appropriate. There is no significant hypoxia. Patient remains Covid positive. Likely causing her shortness of breath. Patient be discharged back to nursing facility. Given strict return precautions. Verbalized understanding. Medical Decision Narrative: This is a 55-year-old female presented to the emergency department with some shortness of breath. Patient has been diagnosed with Covid recently and has been in a rehab facility. This time the patient is not displaying any episodes of hypoxia. There is no respiratory distress or dyspnea. She is resting comfortably on room air. Work-up initiated. General Adult HPI - General Chief complaint: Shortness of Breath/Dyspnea Stated complaint: sob Time Seen by Provider: 05/03/21 13:50 Mode of Arrival: Ambulatory Limitations: Physical Limitations Description of Symptoms (Recalled from ER Triage Doc. by RN): Pt stated that she felt SOB for a couple of mins, and now she feels fine. She is BKA. - History of Present Illness HPI narrative: This is a 55-year-old female presented to the emergency department with some shortness of breath. The patient has been in rehabilitation facility secondary to being diagnosed with Covid. She states that today she started getting mildly short of breath. Patient states that now her symptoms have much improved. She had a mild cough, however nonproductive in nature. No hemoptysis. Does not have any headache or change in vision
[2021-05-03 14:18] LABS: Influenza A, PCR Not Detected (NotDetected); Influenza B, PCR Not Detected (NotDetected)
[2021-05-03 14:46] LABS: Basophils # 0.1 K/mm3 (0-0.2); Basophils % 1.5 % (0.1-2.0); Eosinophils # 0.1 K/mm3 (0.0-0.4); Eosinophils % 1.9 % (0.1-12.0); Hematocrit 42.5 % (37.0-47.0); Hemoglobin 14.1 g/dL (12.2-16.2); Lymphocytes # 2.1 K/mm3 (0.7-4.5); Lymphocytes % 35.7 % (10-50); Mean Corpuscular HGB Conc 33.3 g/dL (31.8-35.4); Mean Corpuscular Hemoglobin 30.8 pg (27.0-31.2); Mean Corpuscular Volume 92.3 fl (81-99); Mean Platelet Volume 9.6 fl (7.4-10.4); Monocytes # 0.3 K/mm3 (0.1-1.0); Monocytes % 5.5 % (1.7-9.3); Neutrophils # 3.3 K/mm3 (1.8-7.8); Neutrophils % 55.5 % (37.0-80.0); Platelet Count 240 K/mm3 (142-424); Red Cell Distribution Width 15.5 % (11.5-17.5)
[2021-05-03 15:00] LABS: Chloride 98 mmol/L (98-107)
[2021-05-03 15:01] LABS: Potassium 4.8 mmoL/L (3.5-5.1); Sodium 135 mmol/L (136-145)
[2021-05-03 15:04] LABS: Anion Gap 13.8 mEq/L (5-15); Blood Urea Nitrogen 25 mg/dl (7-17); Calcium 9.3 mg/dl (8.4-10.2); Carbon Dioxide 28 mmol/L (22.0-30.0); Creatinine Clearance Estimated 96 mL/min (50-200); Estimated Glomerular Filt Rate 65 ml/min (>60); GFR (African American) 79 ML/MIN (>60); Glucose 269 mg/dl (74-100)
[2021-05-03 15:25] LABS: Coronavirus 19, PCR Detected (NotDetected)
[2021-05-03 15:52] VITALS: BP 97/46; PULSE 75; RESP 18; TEMP 36.8; O2SAT 94
== END 2021-05-03 15:52 | disposition home or self-care (01) ==
PROVIDERS: Emergency Provider Emergency Medicine; PCP Family Medicine
DX: J20.9 Acute bronchitis, unspecified (principal); U07.1 COVID-19; I25.10 Atherosclerotic heart disease of native coronary artery without angina pectoris; F33.1 Major depressive disorder, recurrent, moderate; I50.9 Heart failure, unspecified; I25.2 Old myocardial infarction; Z79.899 Other long term (current) drug therapy
CPT/HCPCS: 71045; 80048; 85025; 99283; C9803; U0003; U0005

== ENCOUNTER → 2021-05-29 16:30 | Outpatient (CLI) | payer MEDICARE, MEDICAID, SELFPAY ==
--- NOTE | 2021-05-29 | XR_ITS ---
PROCEDURE INFORMATION: Exam: XR Chest Exam date and time: 05/29/2021 12:00 AM Age: 55 years old Clinical indication: Cough; Additional info: Covid outpatient TECHNIQUE: Imaging protocol: XR of the chest. Portable AP upright exam 5:58 p.m. Views: 1 view. COMPARISON: CR XR CHEST PORTABLE 05/03/2021 2:14 PM FINDINGS: Lungs: Some mild hazy airspace opacities in the lower lungs, left greater than right, with small focal nodular 11 mm consolidation in the left lower lung. Pleural spaces: Unremarkable. No significant pleural effusion. No pneumothorax. Heart/Mediastinum: Upper normal cardiac size, accentuated by portable AP technique. Bones/joints: Sternotomy wires. Soft tissues: Right axillary surgical clips. IMPRESSION: Some mild hazy airspace opacities in the lower lungs left greater than right, correlate for pneumonia.
[2021-05-29 19:04] LABS: Basophils % 0.5 % (0.1-2.0); Eosinophils # 0.4 K/mm3 (0.0-0.4); Eosinophils % 5.5 % (0.1-12.0); Hematocrit 37.5 % (37.0-47.0); Hemoglobin 12.6 g/dL (12.2-16.2); Lymphocytes # 2.9 K/mm3 (0.7-4.5); Lymphocytes % 40.7 % (10-50); Mean Corpuscular HGB Conc 33.5 g/dL (31.8-35.4); Mean Corpuscular Hemoglobin 30.3 pg (27.0-31.2); Mean Corpuscular Volume 90.2 fl (81-99); Mean Platelet Volume 8.9 fl (7.4-10.4); Monocytes # 0.4 K/mm3 (0.1-1.0); Monocytes % 5.9 % (1.7-9.3); Neutrophils # 3.4 K/mm3 (1.8-7.8); Neutrophils % 47.4 % (37.0-80.0); Platelet Count 258 K/mm3 (142-424); Red Blood Count 4.16 M/mm3 (4.20-5.40); Red Cell Distribution Width 15.8 % (11.5-17.5); White Blood Count 7.2 K/mm3 (4.8-10.8)
== END ==
PROVIDERS: PCP Family Medicine; Visit Provider Nurse Practitioner
DX: Z20.822 Contact with and (suspected) exposure to COVID-19 (principal)
CPT/HCPCS: 36415; 71045; 85025

== ENCOUNTER 2021-11-27 09:25 | Emergency (ER) | payer MEDICARE, MEDICAID, SELFPAY ==
[2021-11-27 09:27] VITALS: BP 133/79; PULSE 72; RESP 18; TEMP 36.7; O2SAT 93; BMI 32.2
--- NOTE | 2021-11-27 09:32 | PC.NURSE ---
MARTHA SPAIN at
--- NOTE | 2021-11-27 09:38 | PC.NURSE ---
POC Gluc 480
[2021-11-27 09:44] LABS: POC Glucose,Bedside 480 (70-110)
--- NOTE | 2021-11-27 09:51 | HMH.EDGENADL ---
ED Disposition Clinical Impression: Hyperglycemia Disposition: Home, Self-Care Condition on Discharge: Good Instructions: 'Diet Plate' May Help People With Diabetes Lose Weight, DI for Hyperglycemia -- Adult Additional Instructions: Follow up with Dr. Alva Per Dr. Alva use high intensity sliding scale for humalog insulin usage. Sliding scale given in discharge paperwork. Referrals: Shawn Alva MD [Primary Care Provider] - - Critical Care Critical Care Time: No Attestation: On 11/27/21, the high probability of a clinically significant, sudden or life threatening deterioration of the following system(s) required my full and direct attention, intervention and personal management. The time I documented below is in addition to time spent performing reported procedures but includes the following listed in this critical care notation. Medical Decision Making - Medical Records Medical records reviewed: Yes: I reviewed the patient's medical records. - Carlo Inquiry Pt receiving controlled substance: No Vital Signs: 11/27/21 09:27 11/27/21 10:52 11/27/21 11:10 Temperature 98.0 F Temperature Source Oral Pulse Rate 71 68 Pulse Rate [Left Radial] 72 Respiratory Rate 18 Blood Pressure 157/76 H 143/82 H Blood Pressure [Left Arm] 133/79 Blood Pressure Mean 103 99 Blood Pressure Mean [Left Arm] 97 Blood Pressure Source [Left Arm] Automatic Cuff Blood Pressure Position [Left Arm] Sitting 02 Sat by Pulse Oximetry 93 L 98 98 Oxygen Delivery Method Room Air - Lab Data Lab Results 11/27/21 09:33: VBG pH 7.36, VBG pCO2 45.1, VBG pO2 42.0 H, VBG HCO3 24.7, VBG Total CO2 26.1, VBG O2 Saturation 76.9 H, VBG Base Excess -0.8 11/27/21 09:33: POC Glucose 480 H* 11/27/21 09:58: WBC 7.0, RBC 4.49, Hgb 14.0, Hct 42.5, MCV 94.6, MCH 31.1, MCHC 32.9, RDW 15.6, Plt Count 209, MPV 9.6, Neut % (Auto) 48.0, Lymph % (Auto) 30.6, [place] % (Auto) 4.7, Eos % (Auto) 14.5 H, Baso % (Auto) 2.2 H, Neut # (Auto) 3.4, Lymph # (Auto) 2.2, [place] # (Auto) 0.3, Eos # (Auto) 1.0 H, Baso # (Auto) 0.2 11/27/21 09:58: Sodium 133 L, Potassium 4.2, Chloride 96 L, Carbon Dioxide 28, Anion Gap 13.2, BUN 26 H, Creatinine 1.00, Estimated Creat Clear 77, Estimated GFR 58 L, Est GFR ( Amer) 70, Glucose 444 H*, Calcium 9.9 Result diagrams: 11/27/21 09:58 11/27/21 09:58 Orders (Tests/Meds): ED MEDICATIONS Discontinued Medications Generic Name Dose Route Start Last Admin Trade Name Freq PRN Reason Stop Dose Admin Lactated Ringer's 1,000 mls @ 999 mls/hr 11/27/21 09:45 11/27/21 09:52 Lactated Ringer's 1000 Ml Bag IV 11/27/21 10:45 999 mls/hr .Q1H1M JOSEPH Administration Insulin Human Lispro 12 unit 11/27/21 10:53 11/27/21 11:19 Humalog 100 Units/Ml 3ml Vial (Ssi) SQ 11/27/21 10:54 12 unit ONCE ONE Administration Medical Decision Narrative: The patient is a 55 year old female with DM and multiple other medical problems who presents to the ED with hyperglycemia. On arrival she is awake and alert, has no complaints. Glucose is 480. Labs including CBC, CMP, vbg were obtained and were unremarkable except for the high glucose. pH was normal, anion gap normal, no evidence of DKA. She was given 1L LR bolus. She was given 12 units of subQ insulin. Discussed with Dr. Alva who will follow up in clinic. Discharged home in good condition. General Adult HPI - General Chief complaint: Hyper/Hypoglycemia Stated complaint: elevated glucose Time Seen by Provider: 11/27/21 09:27 Mode of Arrival: Wheelchair Limitations: Physical Limitations Description of Symptoms (Recalled from ER Triage Doc. by RN): Pt reports fsbs at home was registering HI on home monitor. Pt mother reports pt had Levemir 60 units and Humalog 20 units at 7:20 this morning and has been drinking water. Pt denies any illness, cough, fever, n/v. - History of Present Illness HPI narrative: The patient is a 55 year old female with
--- NOTE | 2021-11-27 10:06 | PC.NURSE ---
notified RT of vbg order
[2021-11-27 10:13] LABS: Basophils # 0.2 K/mm3 (0-0.2); Basophils % 2.2 % (0.1-2.0); Eosinophils % 14.5 % (0.1-12.0); Hematocrit 42.5 % (37.0-47.0); Lymphocytes # 2.2 K/mm3 (0.7-4.5); Lymphocytes % 30.6 % (10-50); Mean Corpuscular HGB Conc 32.9 g/dL (31.8-35.4); Mean Corpuscular Hemoglobin 31.1 pg (27.0-31.2); Mean Corpuscular Volume 94.6 fl (81-99); Mean Platelet Volume 9.6 fl (7.4-10.4); Monocytes # 0.3 K/mm3 (0.1-1.0); Monocytes % 4.7 % (1.7-9.3); Neutrophils # 3.4 K/mm3 (1.8-7.8); Platelet Count 209 K/mm3 (142-424); Red Blood Count 4.49 M/mm3 (4.20-5.40); Red Cell Distribution Width 15.6 % (11.5-17.5)
[2021-11-27 10:15] LABS: VBG Base Excess -0.8 mmol/L (-2.4-2.3); VBG HCO3 24.7 mmol/L (23-30); VBG Oxygen Saturation 76.9 % (50-70); VBG PCO2 45.1 mmol/L (35-51); VBG PH 7.36 mmol/L (7.31-7.41); VBG Total CO2 26.1 mmol/L (23-27)
[2021-11-27 10:16] LABS: Chloride 96 mmol/L (98-107); Potassium 4.2 mmoL/L (3.5-5.1); Sodium 133 mmol/L (136-145)
[2021-11-27 10:19] LABS: Anion Gap 13.2 mEq/L (5-15); Blood Urea Nitrogen 26 mg/dl (7-17); Calcium 9.9 mg/dl (8.4-10.2); Carbon Dioxide 28 mmol/L (22.0-30.0); Creatinine Clearance Estimated 77 mL/min (50-200); Estimated Glomerular Filt Rate 58 ml/min (>60); GFR (African American) 70 ML/MIN (>60)
[2021-11-27 10:21] LABS: Glucose 444 mg/dl (74-100)
--- NOTE | 2021-11-27 10:26 | PC.NURSE ---
Lab called with glucose of 444, repeated and verified and notified
[2021-11-27 10:52] VITALS: BP 157/76; PULSE 71; O2SAT 98
--- NOTE | 2021-11-27 10:56 | PC.NURSE ---
speaking with Dr Alva
[2021-11-27 11:10] VITALS: BP 143/82; PULSE 68; O2SAT 98
[2021-11-27 11:40] VITALS: BP 143/82; PULSE 68; RESP 16; TEMP 36.7; O2SAT 98
== END 2021-11-27 11:40 | disposition home or self-care (01) ==
PROVIDERS: Emergency Provider Emergency Medicine; PCP Family Medicine
DX: E11.65 Type 2 diabetes mellitus with hyperglycemia (principal); Z79.4 Long term (current) use of insulin; Z79.84 Long term (current) use of oral hypoglycemic drugs; Z79.899 Other long term (current) drug therapy; Z88.0 Allergy status to penicillin; Z88.1 Allergy status to other antibiotic agents; I25.10 Atherosclerotic heart disease of native coronary artery without angina pectoris; I65.29 Occlusion and stenosis of unspecified carotid artery; I73.9 Peripheral vascular disease, unspecified; E78.5 Hyperlipidemia, unspecified; I11.0 Hypertensive heart disease with heart failure; I25.2 Old myocardial infarction; I50.9 Heart failure, unspecified; N28.9 Disorder of kidney and ureter, unspecified
CPT/HCPCS: 80048; 82803; 82962; 85025; 96372; 99284

== ENCOUNTER → 2021-12-18 14:05 | Outpatient (CLI) | payer MEDICARE, MEDICAID, SELFPAY ==
--- NOTE | 2021-12-18 14:10 | XR_ITS ---
FINAL REPORT CLINICAL HISTORY: COUGH COMPARISON: May 29, 2021 FINDINGS: Two views of the chest were obtained. The heart size and pulmonary vascularity are within normal limits. Postoperative changes are seen from median sternotomy. No acute pulmonary abnormality is identified. There is no pneumothorax. The bony thorax is intact. There are postoperative changes of the right axilla. IMPRESSION: No active cardiopulmonary disease. Reviewed, Interpreted and Dictated by Avel Zhou III, MD Transcribed by Alina Albrecht Authenticated and [facility]
== END ==
PROVIDERS: PCP Family Medicine; Visit Provider Physician Assistant
DX: R05.1 Acute cough (principal)
CPT/HCPCS: 71046

== ENCOUNTER → 2022-01-02 08:15 | Outpatient (CLI) | payer MEDICARE, MEDICAID, SELFPAY ==
[2022-01-02 08:24] LABS: MANUAL DIFFERENTIAL MANUAL DIFFERENTIAL (MANUAL DIFF)
[2022-01-02 08:48] LABS: Basophils # 0.1 K/mm3 (0-0.2); Basophils % 2.1 % (0.1-2.0); Eosinophils # 0.4 K/mm3 (0.0-0.4); Eosinophils % 5.7 % (0.1-12.0); Hematocrit 41.5 % (37.0-47.0); Hemoglobin 13.2 g/dL (12.2-16.2); Lymphocytes # 2.2 K/mm3 (0.7-4.5); Lymphocytes % 31.9 % (10-50); Mean Corpuscular HGB Conc 31.7 g/dL (31.8-35.4); Mean Corpuscular Hemoglobin 30.4 pg (27.0-31.2); Mean Corpuscular Volume 95.9 fl (81-99); Mean Platelet Volume 9.2 fl (7.4-10.4); Monocytes # 0.5 K/mm3 (0.1-1.0); Monocytes % 7.8 % (1.7-9.3); Neutrophils # 3.7 K/mm3 (1.8-7.8); Neutrophils % 52.6 % (37.0-80.0); Platelet Count 310 K/mm3 (142-424); Red Blood Count 4.33 M/mm3 (4.20-5.40); Red Cell Distribution Width 16.6 % (11.5-17.5)
[2022-01-02 10:05] LABS: Anisocytosis 1+; Eosinophils % 5 % (0-3); Lymphocytes % 30 % (10-50); Macrocytosis 1+; Monocytes % 11 % (2-9); Neutrophils % 54 % (42-76); Total Cells Counted 100
[2022-01-02 10:06] LABS: Ovalocytes 1+; Platelet Estimate Normal
[2022-01-02 11:13] LABS: Albumin Level 3.7 g/dl (3.5-5.0); Anion Gap 12.5 mEq/L (5-15); Blood Urea Nitrogen 31 mg/dl (7-17); Calcium 9.3 mg/dl (8.4-10.2); Carbon Dioxide 27 mmol/L (22.0-30.0); Chloride 101 mmol/L (98-107); Estimated Glomerular Filt Rate 52 ml/min (>60); GFR (African American) 63 ML/MIN (>60); Glucose 232 mg/dl (74-100); Phosphorous 4.6 mg/dl (2.5-4.5); Potassium 4.5 mmoL/L (3.5-5.1); Sodium 136 mmol/L (136-145)
[2022-01-02 11:34] LABS: 25-OH Vitamin D, Total 65.5 ng/mL (30-100)
[2022-01-05 05:08] LABS: Cystatin C 1.52 mg/L (0.67-1.14)
== END ==
PROVIDERS: PCP Family Medicine; Visit Provider Internal Medicine Nephrology
DX: N18.30 Chronic kidney disease, stage 3 unspecified (principal); E55.9 Vitamin D deficiency, unspecified
CPT/HCPCS: 36415; 80069; 82306; 82610; 85007; 85014; 85018; 85048; 85049

== ENCOUNTER → 2022-01-04 13:23 | Outpatient (POV) | payer MEDICARE, MEDICAID, SELFPAY | PROVIDERS: Visit Provider Internal Medicine Nephrology | DX: Z00.00 Encounter for general adult medical examination without abnormal findings (principal) ==

== ENCOUNTER → 2022-03-15 12:47 | Outpatient (CLI) | payer MEDICARE, MEDICAID, SELFPAY ==
--- NOTE | 2022-03-15 12:56 | CA_ITS ---
APPROVED REPORT EXAM: Comprehensive 2D, Doppler, and color-flow Echocardiogram Transport Medic: Maryse Rodarte RVT Ht: 5 ft 0 in Wt: 180lbs BSA: 1.78 BP: 134/72 mmHg Indications: MURMUR,CAD,CHF,DM,HTN,HLD TDS-PT SCANNED IN MOTORIZED W/C,PT IS BILATERAL AKA AND BILATERAL MASECTOMY 2D Dimensions LVOT 2.40 cm (M/F) 1.5-2.5 M-Mode Dimensions RVDd 2.36 cm (0.9-2.6) LA Diam 4.56 cm (1.9-4.0) LVDd 4.79 cm (3.5-5.7) Ao Diam 2.85 cm (2.0-3.7) LVDs 3.04 cm (3.5-5.7) IVSd 1.14 cm (0.6-1.1) PWd 0.64 cm (0.6-1.1) EF (Teich) 66.20% FS 36.50% EDV (Teich) 107.00 mL ESV (Teich) 36.20 mL LV Diastology E Decel Time 200.00 (160-240 msec) E/A Ratio 1.4 MED E' 6.50 (< 7 cm/sec) E'/MED E' Ratio 14.08 (>14) LAT E' 7.30 (<10 cm/sec) E/LAT E' Ratio 12.53 (>14) Aortic Valve LVOT Max 78.00 (70-110 cm/s) LVOT VTI 13.75 cm AoV Peak Jamari. 356.00 (50-130 cm/s) AO Peak GR. 51.00 mmHg AO Mean GR. 30.30 (<5 mmHg) AO VTI 81.65 (18-25 cm) FRANCIS (VTI) 0.76 (2.5-4.5 cm2) Mitral Valve MV E Max Jamari. 91.00 (40-130 cm/s) MV A Velocity 66.00 (40-130 cm/s) E/A Ratio 1.39 MV Decel. Time 200.00 (160-240 ms) MV PHT 59.00 ms Pulmonary Valve PV Peak Velocity 66.00 (50-150 cm/s) Tricuspid Valve TR P. Velocity 314.00 cm/s RAP Estimate 10.00 mmHg RVSP 49.50 mmHg Left Ventricle Left atrium is mildly enlarged, left ventricle is normal size mild concentric left ventricular hypertrophy, estimated ejection fraction 55% with no regional wall motion abnormality, grade 2 diastolic dysfunction seen without tissue Doppler evidence of raise left atrial pressure. Right Ventricle Right atrium and right ventricle are mildly enlarged with normal contractility. Aortic Valve Aortic valve is thickened and calcified with severe restriction in the leaflet mobility, mean gradient across aortic valve is 32 mmHg, valve area is 0.8 cm??? represents severe aortic stenosis, there is no significant aortic insufficiency. Mitral Valve Mitral valve has mitral calcification, leaflets are minimally thickened, there is mild mitral regurgitation. Tricuspid Valve Tricuspid valve grossly normal, there is mild tricuspid regurgitation, calculated right ventricular systolic pressure is 50 mmHg. Pulmonic Valve Pulmonic valve is poorly visualized. Great Vessels Aortic root is normal size. Inferior vena cava is poorly visualized. Pericardium No significant pericardial effusion noted. Conclusion 1. Biatrial enlargement, normal left ventricular size, mild concentric left ventricular hypertrophy, estimated ejection fraction 55% with no regional wall motion abnormality, grade 2 diastolic dysfunction seen without tissue Doppler evidence of raise left atrial pressure. 2. Thickened and calcified aortic valve with severe aortic stenosis, valve area is 0.8 cm???. There is no significant aortic insufficiency. 3. Mildly enlarged right ventricle with normal contractility. 4. Mild mitral and tricuspid regurgitation, calculated right ventricular systolic pressure is 50 mmHg. 5. No significant pericardial effusion noted. Electronically signed by : Christian Crowe MD 03/15/2022 14:15:20
== END ==
PROVIDERS: PCP Family Medicine; Visit Provider Family Medicine
DX: R01.1 Cardiac murmur, unspecified (principal)
CPT/HCPCS: 93306

== ENCOUNTER 2022-04-06 10:40 | Emergency (ER) | payer MEDICARE, MEDICAID, SELFPAY ==
[2022-04-06 10:40] VITALS: BP 137/75; PULSE 75; RESP 18; TEMP 36.4; O2SAT 98; BMI 31.2
[2022-04-06 11:09] VITALS: BP 128/64; PULSE 73; RESP 18; O2SAT 98
--- NOTE | 2022-04-06 11:09 | PC.NURSE ---
1109 PLAN OF CARE DISCUSSED WITH PT AND FAMILY. AFRIN NASAL SPRAY USED, NOSE CLAMP APPLIED. PT TOLERATED WELL
[2022-04-06 11:22] LABS: Basophils # 0.1 K/mm3 (0-0.2); Basophils % 1.2 % (0.1-2.0); Eosinophils # 0.5 K/mm3 (0.0-0.4); Eosinophils % 6.3 % (0.1-12.0); Hematocrit 43.4 % (37.0-47.0); Hemoglobin 13.7 g/dL (12.2-16.2); Lymphocytes # 2.2 K/mm3 (0.7-4.5); Lymphocytes % 30.3 % (10-50); Mean Corpuscular HGB Conc 31.6 g/dL (31.8-35.4); Mean Corpuscular Hemoglobin 29.5 pg (27.0-31.2); Mean Corpuscular Volume 93.3 fl (81-99); Mean Platelet Volume 9.8 fl (7.4-10.4); Monocytes # 0.3 K/mm3 (0.1-1.0); Monocytes % 3.8 % (1.7-9.3); Neutrophils # 4.3 K/mm3 (1.8-7.8); Neutrophils % 58.5 % (37.0-80.0); Platelet Count 266 K/mm3 (142-424); Red Blood Count 4.65 M/mm3 (4.20-5.40); Red Cell Distribution Width 15.7 % (11.5-17.5); White Blood Count 7.4 K/mm3 (4.8-10.8)
[2022-04-06 11:30] VITALS: BP 134/80; PULSE 74; RESP 18; O2SAT 97
--- NOTE | 2022-04-06 11:42 | PC.NURSE ---
DR. PENALOZA AT BEDSIDE FOR EVALUATION
--- NOTE | 2022-04-06 11:43 | HMH.EDEPIS ---
Discharge Plan Disposition Patient Disposition: Home, Self-Care Condition: Fair Prescriptions Prescriptions: No Action glimepiride 2 mg tablet 2 mg PO DAILY clopidogrel 75 mg tablet 75 mg PO HS donepezil 5 MG tablet 5 mg PO HS metoprolol tartrate 25 MG tablet 12.5 mg PO DAILY loratadine 10 MG tablet 10 mg PO DAILY cholecalciferol (vitamin D3) 2,000 UNIT tablet 3,000 units PO DAILY baclofen 20 MG tablet 10 mg PO BID ferrous sulfate 325 MG tablet 325 mg PO TID insulin detemir U-100 100 UNIT/ML insulin pen 60 unit SQ BID atorvastatin 40 MG tablet 40 mg PO DAILY citalopram 10 MG tablet 10 mg PO DAILY metformin 1,000 MG tablet 1,000 mg PO BID lisinopril 5 MG tablet 5 mg PO DAILY warfarin 5 MG tablet 9 mg PO COUMADIN insulin lispro 100 UNIT/ML solution 20 unit SQ ACHS Referrals Follow up/Referrals: Shawn Alva MD [Primary Care Provider] - See instructions Activity Restrictions/Add. Instructions Additional Instructions/Restrictions: Please hold your warfarin until your levels are back in the therapeutic range of 2?3. Please return with any new or worsening symptoms. Please return with any new bleeding. Clinical Impressions Clinical Impression: Epistaxis Instructions Patient Instructions: DI for Nosebleed Discharge ED Provider: Ulises Tidwell Epistaxis HPI General Chief complaint: Epistaxis Stated complaint: Nosebleed since 04/05/22 Time Seen by Provider: 04/06/22 11:00 Mode of Arrival: Wheelchair Limitations: No Limitations Description of Symptoms (Recalled from ER Triage Doc. by RN): PT REPORTS NOSE BLEED X 2 DAYS. FAMILY MEMBER REPORTS ACCIDENTAL DOSES OF COUMADIN SINCE TUESDAY History of Present Illness HPI Narrative: Patient is a 56-year-old female with a past medical history of DVT, diabetes, CVA, hyperlipidemia who presents with concern for epistaxis. She reports that she is on Coumadin. She says that the symptoms are happening intermittently over the last 2 days but have not stopped each time until today. She reports that she accidentally has been taking extra doses of her Coumadin as they were in her medication tray. She denies any head pain. Denies any chest or abdominal pain. Denies any shortness of breath. Denies any trauma. Related Data Home Medications Medication Instructions Recorded Confirmed clopidogrel 75 mg tablet 75 mg PO HS Platelet inhibitor 09/22/17 11/27/21 glimepiride 2 mg tablet 2 mg PO DAILY Diabetes 09/22/17 11/27/21 donepezil 5 mg tablet 5 mg PO HS memory 04/14/18 11/27/21 metoprolol tartrate 25 mg tablet 12.5 mg PO DAILY Hypertension 05/09/19 11/27/21 loratadine 10 mg tablet 10 mg PO DAILY Allergy symptoms 05/10/19 11/27/21 cholecalciferol (vitamin D3) 50 3,000 units PO DAILY Supplement 07/23/19 11/27/21 mcg (2,000 unit) tablet baclofen 20 mg tablet 10 mg PO BID muscle spasms 08/15/19 11/27/21 ferrous sulfate 325 mg (65 mg 325 mg PO TID ANEMIA 10/10/19 11/27/21 iron) tablet insulin detemir U-100 100 unit/mL 60 unit SQ BID Diabetes 10/10/19 11/27/21 (3 mL) subcutaneous pen atorvastatin 40 mg tablet 40 mg PO DAILY Cholesterol 10/26/19 11/27/21 citalopram 10 mg tablet 10 mg PO DAILY mood 05/03/21 11/27/21 insulin lispro 100 unit/mL 20 unit SQ ACHS Diabetes 05/03/21 11/27/21 subcutaneous solution lisinopril 5 mg tablet 5 mg PO DAILY blood pressure 05/03/21 11/27/21 metformin 1,000 mg tablet 1,000 mg PO BID diabetes 05/03/21 11/27/21 warfarin 5 mg tablet 9 mg PO COUMADIN thinner 05/03/21 11/27/21 Allergies Allergy/AdvReac Type Severity Reaction Status Date / Time azithromycin Allergy Intermediate S-DIFF. Verified 04/24/20 15:36 BREATHING daptomycin [DAPTOMYCIN] Allergy Intermediate I-RASH/ITCH Verified 04/24/20 15:36 ING levofloxacin Allergy Intermediate I-RASH Verified 04/24/20 15:36 Penicillins Allergy Intermediate I-HIVES Verified
[2022-04-06 12:00] VITALS: BP 148/85; PULSE 75; RESP 18; O2SAT 98
[2022-04-06 12:30] VITALS: BP 158/99; PULSE 78; RESP 20; O2SAT 98
--- NOTE | 2022-04-06 12:35 | PC.NURSE ---
Lab called critical PT/INR of 90.0/8.0 Repeated back and verified. notified.
--- NOTE | 2022-04-06 12:43 | PC.NURSE ---
ROUNDED ON PT AT THIS TIME, PT REQUESTING SOMETHING FOR DIAPER RASH
--- NOTE | 2022-04-06 13:07 | PC.NURSE ---
PT REQUESTING LUNCH TRAY, DIETARY NOTIFIED
--- NOTE | 2022-04-06 13:10 | PC.NURSE ---
LUNCH TRAY SET-UP AT THIS TIME
[2022-04-06 14:00] VITALS: BP 150/80; PULSE 70; RESP 18; TEMP 36.6; O2SAT 98
== END 2022-04-06 14:00 | disposition home or self-care (01) ==
PROVIDERS: Emergency Provider Student in an Organized Health Care Education/Training Program; PCP Family Medicine
DX: R04.0 Epistaxis (principal); R79.1 Abnormal coagulation profile; I25.2 Old myocardial infarction; E78.5 Hyperlipidemia, unspecified; Z79.01 Long term (current) use of 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; Z79.4 Long term (current) use of insulin; Z79.84 Long term (current) use of oral hypoglycemic drugs; Z79.899 Other long term (current) drug therapy; Z88.0 Allergy status to penicillin; Z88.1 Allergy status to other antibiotic agents; Z88.3 Allergy status to other anti-infective agents; Z88.8 Allergy status to other drugs, medicaments and biological substances; Z86.718 Personal history of other venous thrombosis and embolism; Z89.519 Acquired absence of unspecified leg below knee
CPT/HCPCS: 85025; 85610; 96372; 99284

== ENCOUNTER → 2022-07-19 08:23 | Outpatient (CLI) | payer MEDICARE, MEDICAID, SELFPAY ==
[2022-07-19 09:12] LABS: Basophils # 0.1 K/mm3 (0-0.2); Eosinophils # 0.5 K/mm3 (0.0-0.4); Eosinophils % 4.3 % (0.1-12.0); Hematocrit 41.6 % (37.0-47.0); Hemoglobin 13.7 g/dL (12.2-16.2); Lymphocytes # 2.2 K/mm3 (0.7-4.5); Lymphocytes % 20.8 % (10-50); Mean Corpuscular Hemoglobin 29.6 pg (27.0-31.2); Mean Corpuscular Volume 89.9 fl (81-99); Mean Platelet Volume 9.1 fl (7.4-10.4); Monocytes # 0.5 K/mm3 (0.1-1.0); Monocytes % 4.5 % (1.7-9.3); Neutrophils # 7.2 K/mm3 (1.8-7.8); Neutrophils % 69.4 % (37.0-80.0); Platelet Count 277 K/mm3 (142-424); Red Blood Count 4.63 M/mm3 (4.20-5.40); Red Cell Distribution Width 16.2 % (11.5-17.5); White Blood Count 10.4 K/mm3 (4.8-10.8)
[2022-07-19 10:44] LABS: Chloride 101 mmol/L (98-107); Sodium 133 mmol/L (136-145)
[2022-07-19 10:45] LABS: Potassium 5.1 mmoL/L (3.5-5.1)
[2022-07-19 10:47] LABS: Blood Urea Nitrogen 32 mg/dl (7-17); Estimated Glomerular Filt Rate 58 ml/min (>60); GFR (African American) 70 ML/MIN (>60)
[2022-07-19 10:48] LABS: Anion Gap 14.1 mEq/L (5-15); Calcium 8.8 mg/dl (8.4-10.2); Carbon Dioxide 23 mmol/L (22.0-30.0); Glucose 386 mg/dl (74-100)
[2022-07-19 10:59] LABS: Intact Parathyroid Hormone 28.6 pg/mL (7.5-53.5)
== END ==
PROVIDERS: PCP Family Medicine; Visit Provider Psychiatry & Neurology Neurology
DX: N18.30 Chronic kidney disease, stage 3 unspecified (principal)
CPT/HCPCS: 36415; 80069; 83970; 85025

== ENCOUNTER 2022-09-26 19:44 | Emergency (ER) | payer MEDICARE, MEDICAID, SELFPAY ==
[2022-09-26] VITALS (7 sets, daily range): BP systolic 138–151; BP diastolic 87–100; PULSE 83–120; RESP 14–37; TEMP 36.6; O2SAT 73–92; BMI 39.0
--- NOTE | 2022-09-26 | ECG_ITS ---
APPROVED REPORT Exam: Resting ECG HR:113 bpm ECG Measurements Heart Rate 113 AXES QRSd 148 QRS 196 QT 378 T 38 QTc 445 Conclusion Sinus TACHYCARDIA RIGHT AXIS DEVIATION RIGHT BUNDLE BRANCH BLOCK [120+ ms QRS DURATION, UPRIGHT V1, 40+ ms S IN I/aVL/V4/V5/V6] ABNORMAL ECG UNCONFIRMED REPORT Electronically signed by : Sabino Wilder MD 09/27/2022 20:22:20
--- NOTE | 2022-09-26 19:49 | XR_ITS ---
PROCEDURE INFORMATION: Exam: XR Chest Exam date and time: 09/26/2022 8:07 PM Age: 56 years old Clinical indication: Shortness of breath; Additional info: SOA TECHNIQUE: Imaging protocol: Radiologic exam of the chest. Views: 1 view. COMPARISON: CR XR CHEST 2V 12/18/2021 2:12 PM FINDINGS: Lungs: Multifocal opacities are noted in the right mid and lower lung estrada and possibly in the left mid and upper lung estrada. Pleural spaces: Unremarkable. No pleural effusion. No pneumothorax. Heart/Mediastinum: Heart size appears enlarged but may be accentuated by AP portable technique. Post open heart changes noted. Vascularity appears normal. Bones/joints: Unremarkable. IMPRESSION: Multifocal opacities. Favored consideration is multifocal infiltrates although the possibility of multifocal masses can not be totally excluded on this portable chest. Advise short-term follow-up chest x-rays to ensure resolution. If patient does not have clinical findings to suggest pneumonia than CT scan to confirm or exclude masses should be considered. Cardiomegaly.
--- NOTE | 2022-09-26 19:50 | PC.NURSE ---
speaking with . requesting repeat EKG.
--- NOTE | 2022-09-26 19:53 | PC.NURSE ---
MD Alyson speaking with MD Randy at this time.
--- NOTE | 2022-09-26 20:00 | ECG_ITS ---
APPROVED REPORT Exam: Resting ECG HR:117 bpm ECG Measurements Heart Rate 117 AXES QRSd 152 QRS 193 QT 374 T 34 QTc 443 Conclusion Sinus TACHYCARDIA WIth VENTRICULAR [employer]MAT[employer]XES RIGHT AXIS DEVIATION [QRS AXIS > 100] RIGHT BUNDLE BRANCH BLOCK [120+ ms QRS DURATION, UPRIGHT V1, 40+ ms S IN I/aVL/V4/V5/V6] ST DEPRESSION, CONSIDER SUBENDOCARDIAL INJURY [0.1+ mV ST DEPRESSION] ABNORMAL ECG UNCONFIRMED REPORT Electronically signed by : Sabino Wilder MD 09/27/2022 20:22:58
[2022-09-26 20:05] LABS: ABG Base Excess -2.2 mmol/L (-2.4-2.3); ABG HCO3 22.6 mmhg (22.0-26.0); ABG Oxygen Saturation 90 % (90-100); ABG PCO2 36.9 mmhg (35.0-45.0); ABG PO2 60.6 mmhg (80-100); ABG TCO2 23.7 mmhg (23-27)
[2022-09-26 20:07] LABS: Allen's Test Y; Oxygen 6 %; Source Right Radial
[2022-09-26 20:20] LABS: Basophils # 0.1 K/mm3 (0-0.2); Basophils % 0.4 % (0.1-2.0); Hematocrit 45.5 % (37.0-47.0); Lymphocytes # 2.3 K/mm3 (0.7-4.5); Lymphocytes % 14.4 % (10-50); Mean Corpuscular HGB Conc 30.8 g/dL (31.8-35.4); Mean Corpuscular Hemoglobin 28.8 pg (27.0-31.2); Mean Corpuscular Volume 93.4 fl (81-99); Mean Platelet Volume 9.4 fl (7.4-10.4); Monocytes # 0.9 K/mm3 (0.1-1.0); Monocytes % 5.4 % (1.7-9.3); Neutrophils # 12.7 K/mm3 (1.8-7.8); Neutrophils % 79.8 % (37.0-80.0); Platelet Count 313 K/mm3 (142-424); Red Blood Count 4.87 M/mm3 (4.20-5.40); Red Cell Distribution Width 15.9 % (11.5-17.5); White Blood Count 15.9 K/mm3 (4.8-10.8)
[2022-09-26 20:22] LABS: MANUAL DIFFERENTIAL MANUAL DIFFERENTIAL (MANUAL DIFF)
[2022-09-26 20:26] LABS: Microscopic, Urine URINE MICROSCOPIC (MICROSCOPIC)
[2022-09-26 20:27] LABS: Anion Gap 16.8 mEq/L (5-15); Blood Urea Nitrogen 32 mg/dl (7-17); Carbon Dioxide 24 mmol/L (22.0-30.0); Chloride 89 mmol/L (98-107); Creatinine Clearance Estimated 71 mL/min (50-200); Estimated Glomerular Filt Rate 43 ml/min (>60); GFR (African American) 52 ML/MIN (>60); Potassium 4.8 mmoL/L (3.5-5.1); Prothrombin Time 28.5 seconds (10.1-12.5); Sodium 125 mmol/L (136-145)
[2022-09-26 20:28] LABS: Appearance,Urine SL CLOUDY (Clear); Bilirubin,Urine Negative (Negative); Blood, Urine 2+ (Negative); Color,Urine YELLOW (Yellow); Glucose,Urine (UA) 3+ (Negative); Ketones,Urine 1+ (Negative); Leukocyte Esterase,Urine Negative (Negative); Nitrate,Urine Negative (Negative); PH,Urine 5.5 (5.0-8.5); Protein,Urine Negative (Negative); Urobilinogen,Urine 0.2 EU/dl (0.2)
[2022-09-26 20:28] LABS: Coronavirus 19, PCR Not Detected (NotDetected); Influenza A, PCR Not Detected (NotDetected); Influenza B, PCR Not Detected (NotDetected)
[2022-09-26 20:31] LABS: C-Reactive Protein 27.4 mg/L (0-4)
[2022-09-26 20:32] LABS: Lactic Acid 3.7 mmol/L (0.7-2.1)
--- NOTE | 2022-09-26 20:32 | CT_ITS ---
PROCEDURE INFORMATION: Exam: CTA Chest With Contrast Exam date and time: 09/26/2022 8:58 PM Age: 56 years old Clinical indication: Shortness of breath; Additional info: SOA TECHNIQUE: Imaging protocol: Computed tomographic angiography of the chest with contrast. 3D rendering (Not supervised by radiologist): MIP and/or 3D reconstructed images were created by the technologist. Radiation optimization: All CT scans at this facility use at least one of these dose optimization techniques: automated exposure control; mA and/or kV adjustment per patient size (includes targeted exams where dose is matched to clinical indication); or iterative reconstruction. Contrast material: ISOVUE; Contrast volume: 70 ml; Contrast route: INTRAVENOUS (IV); REPORTING DATA: Count of CT and Cardiac NM exams in prior 12 months: This patient has received 0 known CTs and 0 known cardiac nuclear medicine studies in the 12 months prior to the current study. COMPARISON: CR XR CHEST PORTABLE 09/26/2022 8:07 PM FINDINGS: Pulmonary arteries: No large central pulmonary emboli were identified. Assessment of the small peripheral subsegmental branches in the lung bases was moderately limited due to gross respiratory motion. Aorta: Mild aortic ectasia/tortuosity. There is moderate calcification of the aortic valve. No aortic aneurysm or dissection. No mediastinal hematoma. Veins: There is moderate subdiaphragmatic contrast reflux into the IVC and hepatic veins suggestive of CHF. Thyroid: The visualized thyroid gland demonstrates no gross abnormality. Lungs: No acute tracheobronchial abnormalities. Multifocal bilateral alveolar opacities with ground-glass components, consolidative elements, and crazy paving, with interlobular septal thickening in the pulmonary apices and bases. The appearance could relate to CHF with interstitial and alveolar pulmonary edema, versus multifocal pneumonia. No evidence of cavitation/abscess. No pulmonary mass lesions are identified. Pleural spaces: Small bilateral simple dependent layering pleural effusions, greater on the right. No pneumothorax. Heart: Mild cardiomegaly.Moderate coronary artery calcification. No pericardial effusion. Coronary arteries: Prior CABG. Mediastinal space: The esophagus is largely contracted but demonstrates no gross abnormality. Lymph nodes: No supraclavicular or axillary adenopathy. No mediastinal or hilar adenopathy. Right axillary node dissection clips. Liver: Moderate fatty infiltration of the liver. Adrenal glands: There is a 13 mm left adrenal nodule measuring 7 Hounsfield units, consistent with adrenal adenoma. Bones/joints: Nonspecific 2.5 x 1.3 x 1.8 cm intramedullary osteoblastic lesion in the right humeral head concerning for possible metastasis. Recommend nonemergent bone scan to assess for a metastatic pattern of disease if not previously assessed. Soft tissues: Mild soft tissue stranding/edema in the peripheral subcutaneous tissues suggesting volume overload or anasarca. Probable prior mastectomies. IMPRESSION: 1. No large central pulmonary emboli. Assessment of the small peripheral basilar branch vessels was limited due to gross respiratory motion. 2. There are findings most consistent with severe CHF and moderate interstitial/alveolar pulmonary edema, with small bilateral pleural effusions. Can not exclude bilateral pneumonia. No evidence of cavitation/abscess. 3. Moderate aortic valvular calcification. 4. Prior mastectomies. 5. A 2.5 mm sclerotic bone lesion in the right humeral head is indeterminate, concerning for possible metastasis. Recommend nonemergent whole-body bone scan e
[2022-09-26 20:35] LABS: Glucose 592 mg/dl (74-100); Lymphocytes % 19 % (10-50); Monocytes % 2 % (2-9); Neutrophils % 79 % (42-76); Platelet Estimate Normal; RBC Morphology Normal; Total Cells Counted 100
[2022-09-26 20:37] LABS: NT Pro Brain Natriuretic Pep. 1240 pg/mL (0-125)
[2022-09-26 20:40] LABS: Bacteria,Urine 1+ /lpf; RBC,Urine Occasional #/hpf (0-3); WBC,Urine 20-50 #/hpf (0-3)
--- NOTE | 2022-09-26 20:42 | PC.NURSE ---
Critical troponin of 4.93 called by Lab. notified.
[2022-09-26 20:46] LABS: Erythrocyte Sedimentation Rate 19 mm/hr (0-30)
--- NOTE | 2022-09-26 20:46 | [facility].EDSOB ---
Discharge Plan Disposition Patient Disposition: Xfer Short-Term Hosp Chief Complaint: Shortness of Breath/Dyspnea Prescriptions Prescriptions: No Action glimepiride 2 mg tablet 2 mg PO DAILY clopidogrel 75 mg tablet 75 mg PO HS donepezil 5 MG tablet 5 mg PO HS metoprolol tartrate 25 MG tablet 12.5 mg PO DAILY loratadine 10 MG tablet 10 mg PO DAILY cholecalciferol (vitamin D3) 2,000 UNIT tablet 3,000 units PO DAILY baclofen 20 MG tablet 10 mg PO BID ferrous sulfate 325 MG tablet 325 mg PO TID insulin detemir U-100 100 UNIT/ML insulin pen 60 unit SQ BID atorvastatin 40 MG tablet 40 mg PO DAILY citalopram 10 MG tablet 20 mg PO DAILY metformin 1,000 MG tablet 1,000 mg PO BID lisinopril 5 MG tablet 5 mg PO DAILY insulin lispro 100 UNIT/ML solution 20 unit SQ ACHS warfarin 6 mg tablet 9 mg PO DAILY fenofibrate nanocrystallized 48 mg tablet 48 mg PO DAILY Ozempic 0.25 mg or 0.5 mg(2 mg/1.5 mL) pen injector 0.25 mg SQ WEEKLY Referrals Follow up/Referrals: Shawn Alva MD [Primary Care Provider] - See instructions Clinical Impressions Clinical Impression: CAP (community acquired pneumonia), prison 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, Diabetes mellitus, CHF (congestive heart failure), Severe sepsis with acute organ dysfunction, Non-ST elevated myocardial infarction (non-STEMI), RBBB (right bundle branch block with left anterior fascicular block), Aortic stenosis, S/P AKA (above knee amputation) bilateral Discharge ED Provider: Grisel (ED)[facility] Resp/SOB HPI General Chief Complaint: Shortness of Breath/Dyspnea Stated Complaint: SOA Time Seen by Provider: 09/26/22 20:05 Mode of Arrival: EMS Source of Information: Patient, Relative, EMS and Medical Record Limitations: No Limitations Description of Symptoms (Recalled from ER Triage Doc. by RN): PT arrives via ems. Per EMS, pt has been sick for 2 days with a cough, c/o SOA for prior 2 hours and chest pain. Room air on arrival was 66% Pt states that she has had clear phlegm for prior two days with cough and vomiting. States that she has had soa and chest pain with back pain for the prior two hours. History of Present Illness pt with sob and cough and chest pain which has been ongoing for ths last 2 days - pt has hx of cabg about 10 yrs ago - pt with abn echo at [facility] 03/11 with aortic stenosis 0.8 cm and last card eval 2019-no fever reported - pt has diabetes and on coumadin for uncertain etiology - MD Complaint: shortness of breath and cough Onset (ago): day(s) Severity: moderate Consistency/Duration: intermittent Known history of: congestive heart failure, diabetes and other (cad ) Associated symptoms: cough Related Data Home oxygen amount: none Home Medications Medication Instructions Recorded Confirmed clopidogrel 75 mg tablet 75 mg PO HS Platelet inhibitor 09/22/17 09/26/22 glimepiride 2 mg tablet 2 mg PO DAILY Diabetes 09/22/17 09/26/22 donepezil 5 mg tablet 5 mg PO HS Dementia 04/14/18 09/26/22 metoprolol tartrate 25 mg tablet 12.5 mg PO DAILY High blood 05/09/19 09/26/22 pressure loratadine 10 mg tablet 10 mg PO DAILY Allergy symptoms 05/10/19 09/26/22 cholecalciferol (vitamin D3) 50 3,000 units PO DAILY Supplement 07/23/19 09/26/22 mcg (2,000 unit) tablet baclofen 20 mg tablet 10 mg PO BID Muscle Spasm 08/15/19 09/26/22 ferrous sulfate 325 mg (65 mg 325 mg PO TID Anemia 10/10/19 09/26/22 iron) tablet insulin detemir U-100 100 unit/mL 60 unit SQ BID Diabetes 10/10/19 09/26/22 (3 mL) subcutaneous pen atorvastatin 40 mg tablet 40 mg PO DAILY Cholesterol 10/26/19 09/26/22 citalopram 10 mg tablet 20 mg PO DAILY Mood 05/03/21 09/26/22 insulin lispro 100 unit/mL 20 unit SQ ACHS Diabetes 05/03/21 09/26/22 subcutaneous solution lisinopril 5 mg tablet 5 mg PO DAILY High blood pressure 05/03/21 09/26/22 metformin 1,000 mg tablet 1,000 m
[2022-09-26 20:48] LABS: Procalcitonin 0.167 ng/mL (0.0-2.0)
[2022-09-26 20:50] LABS: Troponin I 4.93 ng/ml (0.00-0.034)
[2022-09-26 20:51] LABS: Acetone, Serum (Rapid) None Detected (None Detect)
[2022-09-26 20:53] LABS: Alanine Aminotransferase 67 U/L (12-78); Albumin Level 4.2 g/dl (3.5-5.0); Alkaline Phosphatase 171 U/L (38-126); Aspartate Amino Transferase 91 U/L (14-36); Bilirubin,Direct 0.2 mg/dl (0.0-0.4); Bilirubin,Indirect 1.2 mg/dL (0.0-0.9); Bilirubin,Total 1.4 mg/dl (0.2-1.3); Bilirubin,Unconjugated 1.2 mg/dL (0.0-1.1); Total Protein,Serum 7.9 g/dl (6.3-8.2)
[2022-09-26 21:15] LABS: Hemoglobin A1C > 14.0 % (4.0-6.0)
--- NOTE | 2022-09-26 21:58 | PC.NURSE ---
Spoke with [facility] access center. Patient is currently placed on a waitlist.
--- NOTE | 2022-09-26 22:22 | PC.NURSE ---
SPOKE TO SAM @ [facility], DR. TAPIA, HOSPITALIST WILL BE PAGED AND WILL RETURN OUR CALL
--- NOTE | 2022-09-26 22:30 | PC.NURSE ---
DR. BASILIO ON THE PHONE WITH DR. TAPIA, ENVIRONMENTAL SERVICES TECH HOSPITALIST @ [facility]
--- NOTE | 2022-09-26 22:36 | PC.NURSE ---
PATIENT ACCEPTED TO [facility] BY DR. TAPIA
--- NOTE | 2022-09-26 22:48 | PC.NURSE ---
300ml of urine out of [place] prior to furosemide administration
--- NOTE | 2022-09-26 22:54 | PC.NURSE ---
Called [facility] to inform them that patient has been accepted at [facility] and can be removed from the waiting list.
== END 2022-09-26 23:55 | disposition short-term general hospital (02) ==
PROVIDERS: Emergency Medicine; Emergency Provider Emergency Medicine; PCP Family Medicine
DX: A41.9 Sepsis, unspecified organism (principal); R65.20 Severe sepsis without septic shock; J18.9 Pneumonia, unspecified organism; I21.4 Non-ST elevation (NSTEMI) myocardial infarction
CPT/HCPCS: 51702; 71045; 71275; 80048; 80076; 81001; 82009; 82803; 83036; 83605; 83880; 84145; 84484; 85007; 85025; 85610; 85651; 86140; 87040; 87086; 87088; 87186; 93005; 96360; 96374; 99285; C9803; J0696; Q9967; U0003; U0005